=== PATIENT | female | born 1960 | race Hispanic/Latino ===

== ENCOUNTER 2017-04-29 11:03 | Inpatient (IN) | payer MEDICAID, OTHER ==
[2017-04-29 11:04] VITALS: BMI 24.2
[2017-04-29] MEDS ORDERED: Sodium Chloride 0.9% 500 ML IV ONE (11:24)
[2017-04-29] MEDS ORDERED: Albuterol-Ipratrop 3 mg / 0.5 (3 ml) UD IH STA (11:25)
--- NOTE | 2017-04-29 11:25 | C.PDOC ---
History Of Present Illness 56 year old female with past medical history of Hepatitis C, COPD, emphysema, prosthetic glass right eye, chronic back pain, anxiety, history of pain medication abuse, DM, and HTN , come in request detox from opiod. Pt admits , mild chest tightness and wheezing for past few days. Otherwise, pt denies fever, chills, headache, dizziness, CP, palpitation, diaphoresis, palpitation, abd. pain, N/V/D, back pain, UTI sx, denies suicidal or homicidal ideation. Ambulate to ED for evaluation, not in any apparent distress. Time Seen by Provider: 04/29/17 11:08 Chief Complaint (Nursing): Substance Abuse History Per: Patient History/Exam Limitations: no limitations Suicide/Self Injury Attempted (Context): None Past Medical History Reviewed: Historical Data, Nursing Documentation, Vital Signs Vital Signs: Last Vital Signs Temp 97.9 F 04/29/17 13:17 Pulse 96 H 04/29/17 13:17 Resp 18 04/29/17 13:17 BP 92/59 L 04/29/17 13:17 Pulse Ox 96 04/29/17 13:47 - Medical History PMH: Anemia, Anxiety, Asthma, Bronchitis, Cardia Arrhythmia, COPD, Depression, Emphysema, HTN, Sleep Apnea Surgical History: Back Surgery - [facility] Procedures APPLICATION OF SPLINT (12/18/03) ASSISTANCE WITH RESPIRATORY VENTILATION, 24-96 HRS, CPAP (02/01/17) ASSISTANCE WITH RESPIRATORY VENTILATION, <24 HRS, CPAP (12/12/16) ASSISTANCE WITH RESPIRATORY VENTILATION, >96 HRS, CPAP (01/23/17) INJECT/INFUSE NEC (03/17/05) INSERTION OF ENDOTRACHEAL AIRWAY INTO TRACHEA, VIA OPENING (02/01/17) INSERTION OF INFUSION DEV INTO SUP VENA CAVA, PERC APPROACH (02/01/17) INTRODUCE OF OTH THERAP SUBST INTO RESP TRACT, VIA OPENING (01/23/17) INTRODUCE OF OXAZOLIDINONES INTO PERIPH VEIN, PERC APPROACH (02/01/17) MAGNETIC RESONANCE IMAGING OF SPINAL CANAL (07/19/98) RESPIRATORY VENTILATION, LESS THAN 24 CONSECUTIVE HOURS (02/01/17) TETANUS TOXOID ADMINIST (04/24/05) ULTRASONOGRAPHY OF LEFT UPPER EXTREMITY VEINS, GUIDANCE (02/01/17) Family History: States: No Known Family Hx - Social History Hx Alcohol Use: No Hx Substance Use: Yes (OPIATE DEPENDENCY-IVDU DENIES RECENT ABUSE) - Immunization History Hx Tetanus Toxoid Vaccination: No Hx Influenza Vaccination: No Hx Pneumococcal Vaccination: No Review Of Systems Except As Marked, All Systems Reviewed And Found Negative. Constitutional: Negative for: Fever, Chills Cardiovascular: Negative for: Chest Pain, Palpitations Gastrointestinal: Negative for: Nausea, Vomiting, Abdominal Pain, Diarrhea Musculoskeletal: Negative for: Back Pain Neurological: Negative for: Headache, Dizziness Psych: Negative for: Suicidal ideation Physical Exam - Physical Exam Appears: Well, Non-toxic, No Acute Distress Skin: Normal Color, Warm, No Rash Head: Normacephalic Eye(s): right: Other (prosthetic eye), left: PERRL Nose: No Flaring, No Discharge Oral Mucosa: Moist, No Drooling Throat: No Erythema, No Drooling Neck: Supple Cardiovascular: Rhythm Regular, No Murmur, No JVD Respiratory: No Decreased Breath Sounds, No Accessory Muscle Use, No Rales, No Rhonchi, No Stridor, Wheezing (scattered bibasilar wheezing.) Gastrointestinal/Abdominal: Soft, No Tenderness, No Distention, No Guarding Back: No CVA Tenderness Extremity: No Pedal Edema, No Deformity Neurological/Psych: Oriented x3, Normal Speech ED Course And Treatment - Laboratory Results Result Diagrams: 04/29/17 11:45 04/29/17 11:45 ECG: Interpreted By Me ECG Rhythm: Sinus Tachycardia Interpretation Of ECG: Sinus tachy@119/min, RAD, no acute T wave or ST-T changes. O2 Sat by Pulse Oximetry: 96 (RA) Pulse Ox Interpretation: Normal - Radiology CXR: Read By Radiologist CXR Interpretation: Yes: Other (no changes compare to old study) Progress Note: Pt remained stable during the ED evaluation. On re-eval, pt is afebrile, hemodynamicaly stable. NOn-toxic. Pusleox 96% RA. Lungs: CTA B/L, BS equal B/L. neurologicaly intact. Diagnostics, imaging, EKG review and appears without new acute abrnormalities. Pt is smedically cleared for PES evaluation. After pt was evaluated by PES, admission recommend to s/o with Dx; Opiod dependance, COPD, UTI. Medical Decision Making Medical Decision Making: PLAN: * CXR * EKG * Alcohol Serum * Urinalysis * Duoneb IH * Solumedrol IVP * Sodium Chloride IV Disposition - Disposition Disposition: HOSPITALIZED Disposition Time: 13:39 Condition: STABLE Forms: [facility] ([place]an) - Clinical Impression Clinical Impression: Chronic obstructive airway disease, Opioid dependence, UTI (urinary tract infection) - PA / FOOD SAFETY MANAGER / Resident Statement MD/DO has reviewed & agrees with the documentation as recorded. - Scribe Statement The provider has reviewed the documentation as recorded by the Scribe Esme Owens All medical record entries made by the Aidanibcharles were at my direction and personally dictated by me. I have reviewed the chart and agree that the record accurately reflects my personal performance of the history, physical exam, medical decision making, and the department course for this patient. I have also personally directed, reviewed, and agree with the discharge instructions and disposition.
[2017-04-29 11:49] LABS: BASO % 0.7 % (0.0-2.0); EOS # 0.2 K/uL (0.0-0.7); HEMATOCRIT 40.6 % (34.0-47.0); LYMPH # 2.3 K/uL (1.0-4.3); LYMPH % 36.2 % (20.0-40.0); MEAN CELL VOLUME 92.4 fL (81.0-99.0); MEAN CORPUSCULAR HEMOGLOBIN 31.2 pg (27.0-31.0); MEAN CORPUSCULAR HGB CONC 33.8 g/dL (33.0-37.0); MEAN PLATELET VOLUME 7.7 fL (7.2-11.7); MONO # 0.7 K/uL (0.0-0.8); MONO % 10.9 % (0.0-10.0); RED CELL DISTRIBUTION WIDTH 15.5 % (11.5-14.5); WHITE BLOOD COUNT 6.3 K/uL (4.8-10.8)
[2017-04-29 11:57] LABS: CHLORIDE 100 mmol/L (98-107)
[2017-04-29 11:58] LABS: POTASSIUM 3.7 mmol/L (3.6-5.2); SODIUM 142 mmol/L (132-148)
[2017-04-29 12:01] LABS: RBC URINE 9 /hpf (0-3); URINE BACTERIA RARE (<OCC); URINE BILIRUBIN NEGATIVE (NEGATIVE); URINE COLOR Amber (YELLOW); URINE GLUCOSE (UA) NORMAL (Normal); URINE KETONE NEGATIVE (NEGATIVE); URINE PROTEIN 1+ mg/dL (NEGATIVE); WBC URINE 14 /hpf (0-5)
[2017-04-29 12:02] LABS: ALCOHOL SERUM < 10 mg/dl (0-10); ALKALINE PHOSPHATASE 72 U/L (38-126); ALT/SGPT 42 U/L (9-52); AST/SGOT 42 U/L (14-36); BILIRUBIN,TOTAL 1.2 mg/dL (0.2-1.3); BLOOD UREA NITROGEN 7 mg/dL (7-17); CALCIUM 9.4 mg/dl (8.6-10.4); CARBON DIOXIDE 33 mmol/L (22-30); GFR AFRICAN-AMERICAN > 60; GLUCOSE,RANDOM 150 mg/dL (65-105); URINE BLOOD TRACE (NEGATIVE); URINE LEUKOCYTE ESTERASE 1+ Leu/uL (Negative)
[2017-04-29 12:04] LABS: ALB/GLOB RATIO 0.9 (1.0-2.1)
[2017-04-29] MEDS ORDERED: Albuterol-Ipratrop 3 mg / 0.5 (3 ml) UD ONE (12:06)
--- NOTE | 2017-04-29 13:41 | RAD ---
HISTORY: Detox/Psy COMPARISON: No prior. TECHNIQUE: Chest PA and lateral FINDINGS: LUNGS: Bilateral hyperaeration. No right lung consolidation. Right central to right central infrahilar probable mild bronchiectasis Left perihilar to left upper lobe low-density patchy opacification- pleural-parenchymal postinflammatory changes with traction bronchiectasis and trace pleural reaching thin fibrous stranding suggested PLEURA: No significant pleural effusion identified. No pneumothorax apparent. CARDIOVASCULAR: Normal heart size OSSEOUS STRUCTURES: Scoliosis VISUALIZED UPPER ABDOMEN: Normal. OTHER FINDINGS: None. IMPRESSION: Mostly central bronchiectasis. Left perihilar left upper lobe traction bronchiectasis also suggested. Left lung postinflammatory changes inferred Scoliosis
[2017-04-29] MEDS: (Novolin R) Insulin Human Regular 100 units/ml vial SC SCH ×2 (16:50→21:20)
--- NOTE | 2017-04-29 17:48 | PCM.BM ---
<Monse Lewis - Last Filed: 04/29/17 17:45> Treatment Plan Problems - Problems identified on initial assessmt Potential for Opiate Withdrawal Date Initiated: 04/29/17 Time Initiated: 17:46 Assessment reference: NA Status: Active Priority: 1 Ineffective Coping Date Initiated: 04/29/17 Time Initiated: 17:47 Assessment reference: NA Status: Active Priority: 2 Treatment assets and liabiliti Patient Assests: cooperative, ADL independent, negotiates basic needs, cognitively intact Patient Liabilities: substance abuse, medical problems, other (O2 inhalation continously due to COPD, Emphysema) - Milieu Protocol Maintain good personal hygiene: daily Encourage regular showers, daily Remind patient to perform daily oral care, daily Assist patient to perform ADL's Conduct patient checks and document Observation sheet: Q15 minutes Maintain personal safety: every shift Educate patient to report safety concerns to staff, every shift Monitor environment for contraband/sharps Medication safety: Monitor for expected outcome, potential side effects: every shift, Assess barriers to learning: every shift, Assess readiness for medication education: every shift <Ebony Neil - Last Filed: 04/29/17 18:33> - Diagnosis (1) Opioid dependence Status: Acute Interventions: 04/29/17 18:31 * Assess 7x/week regarding severity of withdrawal * Educate regarding risks, benefits, side effects and alternatives of medications * Use Motivational Interviewing for abstinence * Use CBT for relapse prevention * Medication management for withdrawal symptoms * Encourage medication assisted treatment * (2) Depression Status: Chronic Interventions: 04/29/17 18:33 * Assess/adjust medications daily and /or as needed * See patient on an individual basis 7x/week to assess symptoms of depression * Monitor for side effects & effectiveness of medications *
[2017-04-29] MEDS: Albuterol 0.083% Inhal Sol (2.5 mg/3 mL) UD INH SCH ×3 (18:19→21:15)
[2017-04-29] MEDS ORDERED: Aluminum Hydroxide/Magnesium Hydroxide Susp (30 mL) PO PRN (18:29)
--- NOTE | 2017-04-29 18:31 | PCM.PSYCH ---
Initial Psychiatric Evaluation - Initial Psychiatric Evaluation Type of Admission: Voluntary Legal Status: Capacity Chief Complaint (in patient's own words): "I'm withdrawing" History of Present Illness and Precipitating Events: The patient is seen, chart reviewed and case discussed. This is a 56-year-old female, single as a child, on disability and lives with her son She claims that she was somewhat stable on opiate painkillers but they cut her medications due to a glitch and since then she has been using heroin. She reports using up to 15 bags of IV heroin and she claims she cannot using intranasally due to her severe COPD. Patient is dependent on oxygen flow continuously. She also uses Xanax for 5 mg a day and she wants to get off that too. She denies all other drug use including alcohol. She reports depressive symptoms, anxiety but denies psychotic and manic symptoms. 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 Current Medications: Active Medications Generic Name Dose Route Start Last Admin Trade Name Freq PRN Reason Stop Dose Admin Al Hydrox/Mg Hydrox/Simethicone 30 ml 04/29/17 18:29 Maalox 30 Ml PO TID PRN Indigestion / Heartburn Albuterol 1 puff 04/29/17 16:19 Ventolin Hfa 90 Mcg/Actuation (8 G) INH RQ4 PRN Shortness of Breath Albuterol Sulfate 2.5 mg 04/29/17 18:00 04/29/17 18:19 Albuterol 0.083% Inhal Maureen (2.5 Mg/3 Ml) Ud INH 2.5 mg RQ6 NITHIN Administration Chlordiazepoxide 0 mg 04/30/17 00:00 Librium PO 05/02/17 23:59 Q6 NITHIN Taper Clonidine HCl 0.1 mg 04/29/17 18:29 Catapres PO Q8 PRN COWS Score More or Equal to 5 Gabapentin 100 mg 04/30/17 10:00 Neurontin PO TID NITHIN Hydroxyzine HCl 50 mg 04/29/17 16:00 04/29/17 16:48 Atarax PO 50 mg Q6 PRN Administration Anxiety Insulin Glargine 5 unit 04/29/17 22:00 Lantus SC HS [facility] Insulin Human Regular 0 unit 04/29/17 16:30 04/29/17 16:50 Novolin R SC 05/05/17 23:59 1 unit ACHS [facility] Administration Protocol Loperamide HCl 2 mg 04/29/17 18:29 Imodium PO Q8 PRN Diarrhea Mupirocin 0 gm 04/29/17 18:00 04/29/17 18:19 Bactroban Ointment TOP 1 applic BID [facility] Administration Nitrofurantoin Macrocrystals 100 mg 04/29/17 18:30 Macrobid PO 05/06/17 18:31 Q12H [facility] Ondansetron HCl 4 mg 04/29/17 18:29 Zofran Tab PO Q8 PRN Nausea/Vomiting Pantoprazole Sodium 40 mg 04/30/17 10:00 Protonix Ec Tab PO DAILY [facility] Paroxetine HCl 20 mg 04/30/17 10:00 Paxil PO DAILY [facility] Trazodone HCl 50 mg 04/29/17 22:00 Desyrel PO [facility] Past Psychiatric History - Past Psychiatric History Previous Treatment History: Intensive Outpatient Pertinent Medical Hx (Current Medical&Sleep Prob, Allergies): Allergies Allergy/AdvReac Type Severity Reaction Status Date / Time Penicillins Allergy ANAPHYLAXIS Verified 04/29/17 11:23 Pantoprazole [Protonix EC Tab] 40 mg PO DAILY ect 01/29/17 Dextran 70/Hypromellose [Artificial Tears] 1 drop BOTHEYES DAILY 02/01/17 ALPRAZolam [Xanax] 1 mg PO BID 04/11/17 Albuterol 0.042% [Albuterol 0.042% Inhal Maureen (1.25mg/3ml) UD] 1 inh INH PRN PRN 04/11/17 Albuterol HFA [Ventolin HFA 90 mcg/actuation (8 g)] 1 inh INH PRN PRN 04/11/17 Insulin Human Regular [Novolin R] 0 units SC PRN PRN 04/11/17 PARoxetine [Paxil] 20 mg PO DAILY 04/11/17 Insulin Glargine,Hum.rec.anlog [Basaglar Kwikpen U-100] 5 unit SQ HS 04/29/17 Review of Systems - Psychiatric Psychiatric: Abnormal Sleep Pattern, Anhedonia, Anxiety, Depression, Difficulty Concentrating. absent: Hallucinations, Homicidal Ideation, Suicidal Ideation Mental Status Examination - Personal Presentation Personal Presentation: Looks older than stated age - Affect Affect: Constricted - Motor Activity Motor Activity: Calm - Reliability in Providing Information Reliability in Providing Information: Good - Speech Speech: Organized - Mood Mood: Depressed, Anxious - Formal Thought Process Formal Thought Process: No Impairment - Cognitive Functions Orientation: Person, Place, Situation, Time Sensorium: Alert Attention/Concentration: Attentive Estimate of Intelligence: Average Judgement: Intact, as evidence by: Insight regarding need for hospitalization Memory: Recent intact, as evidence by: Ability to recall events of the day, Remote intact, as evidenced by: Abilit to recall sig. 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
[2017-04-29] MEDS: (Lantus) Insulin Glargine, Recombinant SC SCH (21:24)
[2017-04-30] MEDS: Albuterol 0.083% Inhal Sol (2.5 mg/3 mL) UD INH SCH ×4 (02:00→21:00)
[2017-04-30] MEDS: (Novolin R) Insulin Human Regular 100 units/ml vial SC SCH ×4 (08:10→21:00)
[2017-04-30] MEDS: Pantoprazole 40 mg EC Tab PO SCH (10:39)
--- NOTE | 2017-04-30 12:26 | PCM.PYCHPN ---
Psychiatric Progress Note - Psychiatric Progress Note Patient seen today, length of contact: 16 min Patient Chief Complaint: "I'm not well yet" Medication Change: Yes (detox changes daily) Medical Record Reviewed: Yes Mental Status Examination - Cognitive Function Orientation: Person, Place, Situation, Time Memory: Intact Attention: WNL Concentration: Poor Association: WNL Fund of Knowledge: WNL - Mood Mood: Depressed, Anxious - Affect Affect: Constricted - Speech Speech: Appropriate - Formal Thought Process Formal Thought Process: No Impairment - Suicidal Ideation Suicidal Ideation: No - Homicidal Ideation Homicidal Ideation: No Goal/Treatment Plan - Goal/Treatment Plan Need for Continued Stay: Discharge may exacerbated symptoms, Severe functional impairment Progress Toward Problem(s) and Goals/Treatment Plan: Subutex detox for opioids Librium detox for benzos Gabapentin for augmentation Continue Paxil for depression and anxiety As needed meds and vitamins Attend groups and activities CA for abstinence and CBT for relapse prevention Support and psychoeducation Consider and encourage MAT Refer to after care Estimated Date of D/C: 05/04/17
[2017-04-30] MEDS: Albuterol HFA 90 mcg/actuation (8 g) INH PRN (13:28)
[2017-04-30] MEDS: (Lantus) Insulin Glargine, Recombinant SC SCH (21:00)
[2017-05-01] MEDS: Albuterol 0.083% Inhal Sol (2.5 mg/3 mL) UD INH SCH ×4 (02:19→20:12)
--- NOTE | 2017-05-01 08:05 | CARD ---
APPROVED REPORT EKG Measurement Heart [id number] <Conclusion> Sinus tachycardia Rightward axis Borderline ECG
[2017-05-01] MEDS: (Novolin R) Insulin Human Regular 100 units/ml vial SC SCH ×4 (08:38→21:01)
[2017-05-01] MEDS: Pantoprazole 40 mg EC Tab PO SCH (09:27)
[2017-05-01] MEDS: Albuterol HFA 90 mcg/actuation (8 g) INH PRN (09:28)
[2017-05-01] MEDS: (Lantus) Insulin Glargine, Recombinant SC SCH (21:00)
[2017-05-02] MEDS: Albuterol 0.083% Inhal Sol (2.5 mg/3 mL) UD INH SCH ×5 (01:52→19:09)
[2017-05-02] MEDS: (Novolin R) Insulin Human Regular 100 units/ml vial SC SCH ×4 (08:45→21:01)
[2017-05-02] MEDS: Albuterol HFA 90 mcg/actuation (8 g) INH PRN (10:32)
[2017-05-02] MEDS: Pantoprazole 40 mg EC Tab PO SCH (10:34)
[2017-05-02] MEDS: (Lantus) Insulin Glargine, Recombinant SC SCH (21:01)
[2017-05-03] MEDS: Albuterol 0.083% Inhal Sol (2.5 mg/3 mL) UD INH SCH ×4 (01:45→19:58)
[2017-05-03] MEDS: (Novolin R) Insulin Human Regular 100 units/ml vial SC SCH ×4 (07:46→21:05)
[2017-05-03] MEDS: Pantoprazole 40 mg EC Tab PO SCH (09:38)
[2017-05-03 15:30] VITALS: RESP 18
[2017-05-03] MEDS: Albuterol HFA 90 mcg/actuation (8 g) INH PRN (17:03)
--- NOTE | 2017-05-03 19:10 | PCM.PYCHPN ---
Psychiatric Progress Note - Psychiatric Progress Note Patient seen today, length of contact: 16 min Patient Chief Complaint: I want my son to come here as soon as i leave Problems Identified/Issues Discussed: pain physical limitations trlapse prevention Medical Problems: nothing acute Diagnostic Results: reviewed FSBS 107 DSM 5 Symptoms Update: anxiety Medication Change: Yes (detox changes daily) Medical Record Reviewed: Yes Mental Status Examination - Cognitive Function Orientation: Place, Situation, Time Memory: Intact Attention: WNL Concentration: Poor Association: WNL Fund of Knowledge: WNL - Mood Mood: Depressed, Anxious - Affect Affect: Constricted - Speech Speech: Appropriate - Formal Thought Process Formal Thought Process: No Impairment - Suicidal Ideation Suicidal Ideation: No - Homicidal Ideation Homicidal Ideation: No Goal/Treatment Plan - Goal/Treatment Plan Need for Continued Stay: Discharge may exacerbated symptoms, Severe functional impairment Progress Toward Problem(s) and Goals/Treatment Plan: opiate withdrawal-anxiety restless legs opiate use disoprder [place] CBT supportive psychotherapy sedative=hypnotic withdrawal anxietysedative-hpnotic use disorder Estimated Date of D/C: 05/04/17 - Smoking Cessation Smoking Cessation Initiated: No
--- NOTE | 2017-05-03 19:25 | PCM.PYCHPN ---
Psychiatric Progress Note - Psychiatric Progress Note Patient seen today, length of contact: 16 min Patient Chief Complaint: I i need physical rehab to getb strongerand not be in in so much pain Problems Identified/Issues Discussed: PAWS Medical Problems: nothing acute Diagnostic Results: reviewed DSM 5 Symptoms Update: roiling stomach Medication Change: Yes (detox changes daily) Medical Record Reviewed: Yes Mental Status Examination - Cognitive Function Orientation: Place, Time Memory: Intact Attention: WNL Concentration: WNL Association: WNL Fund of Knowledge: WNL - Mood Mood: Depressed, Anxious - Affect Affect: Constricted - Speech Speech: Appropriate - Suicidal Ideation Suicidal Ideation: No - Homicidal Ideation Homicidal Ideation: No Goal/Treatment Plan - Goal/Treatment Plan Need for Continued Stay: Discharge may exacerbated symptoms, Severe functional impairment Progress Toward Problem(s) and Goals/Treatment Plan: opiate withdrawal abdominal cramping opiate use disorder [facility]BT Supportive psychotherapy sedative-hypnotic withdraeal increased anxiety sedative-hypnotic use disorder [facility] CBT groups Estimated Date of D/C: 05/04/17 - Smoking Cessation Smoking Cessation Initiated: No
--- NOTE | 2017-05-03 19:32 | PCM.PYCHPN ---
Psychiatric Progress Note - Psychiatric Progress Note Patient seen today, length of contact: 17 min Patient Chief Complaint: I want to call my son! Problems Identified/Issues Discussed: RElapse prevention PAWS Medical Problems: nothing acute Diagnostic Results: reviewed DSM 5 Symptoms Update: less anhedonic less anergic Medication Change: Yes (detox changes daily) Medical Record Reviewed: Yes Mental Status Examination - Cognitive Function Orientation: Place, Time Memory: Intact Attention: WNL Concentration: WNL Association: WNL Fund of Knowledge: WNL - Mood Mood: Depressed, Anxious, Euphoric - Affect Affect: Constricted - Speech Speech: Appropriate - Formal Thought Process Formal Thought Process: No Impairment - Suicidal Ideation Suicidal Ideation: No - Homicidal Ideation Homicidal Ideation: No Goal/Treatment Plan - Goal/Treatment Plan Need for Continued Stay: Discharge may exacerbated symptoms, Severe functional impairment Progress Toward Problem(s) and Goals/Treatment Plan: sedative-hypnotic use disorder [facility] use [facility] supportive psychotherapy Estimated Date of D/C: 05/04/17 - Smoking Cessation Smoking Cessation Initiated: No
[2017-05-03] MEDS: (Lantus) Insulin Glargine, Recombinant SC SCH (21:04)
[2017-05-04] MEDS: Albuterol 0.083% Inhal Sol (2.5 mg/3 mL) UD INH SCH ×2 (02:00→09:07)
[2017-05-04] MEDS: (Novolin R) Insulin Human Regular 100 units/ml vial SC SCH ×2 (08:15→11:30)
--- NOTE | 2017-05-04 08:57 | PCM.PYCHDC ---
Mental Status Examination - Mental Status Examination Orientation: Person, Place, Situation, Time Memory: Intact Mood: Neutral Affect: Broad Speech: Appropriate Attention: WNL Concentration: WNL Association: WNL Fund of Knowledge: WNL Formal Thought Process: No Impairment Suicidal Ideation: No Current Homicidal Ideation?: No Discharge Summary - Discharge Note Reason for Hospitalization: Opioid use d/o-severe Opioid withdrawal Sedative, hypnotic, and anxiolytic use d/o-moderate Major depression, rec.-moderate Psychiatric History (includes Medical, Family, Personal Hx): Outpatient treatment, no suicide attempts Laboratory Data: Abnormal Lab Results 05/03/17 05/03/17 05/03/17 13:08 16:31 21:03 POC Glucose (mg/dL) 146 H 97 113 H 05/04/17 08:11 POC Glucose (mg/dL) 115 H Consultations:: List each consultation separately and include: 1. Reason for request. 2. Findings. 3. Follow-up Summary of Hospital Course include:: 1. Description of specific treatment plan utilized for patients during their course of treatmen. 2. Summarize the time- course for resolution of acute symptoms and/or regressed behaviors. 3. Describe issues identified and worked on during hospitalization. 4. Describe medication utilized. 5. Describe medical problems identified and treated. 6. Reassessment of suicide risk Summary of Hospital Course: The pt was admitted and started on treatment with psychotherapy, support, psychoeducation, and medications. [place] and CBT used. The pt. attended groups and activities, as well as milieu therapy. All the risks and benefits of medications are discussed and the patient understood and agreed. The pt. improved with the treatments provided. After care discussed with patient. Pt. plans to go to [facility] in [place]. - Final Diagnosis (DSM 5) DSM 5: Opioid use d/o-severe Opioid withdrawal Sedative, hypnotic, and anxiolytic use d/o-moderate Major depression, rec.-moderate Disposition: HOME/ ROUTINE Follow-up Treatment Plan: Continue with medications after discharge. Follow after care plan as discussed. Use relapse prevention skills. Return to ER or call 911 if suicidal, homicidal, or symptoms relapse. Stay away from stress, alcohol, and drugs. See primary doctor once a year. Prescriptions/Medication Reconciliation: Gabapentin [Neurontin] 300 mg PO BID #60 cap Nitrofurantoin Macrocrystals [Macrobid] 100 mg PO Q12H #6 cap PARoxetine [Paxil] 20 mg PO DAILY #30 tab traZODone [Desyrel] 50 mg PO HS #30 tab - Smoking Cessation Smoking Cessation Medication prescribed: No - Antipsychotic Medications Pt discharged on 2 or more routine antipsychotic medications: No
[2017-05-04] MEDS: Pantoprazole 40 mg EC Tab PO SCH (09:28)
[2017-05-04 09:50] VITALS: BP 104/70; PULSE 66; TEMP 98; O2SAT 98
== END 2017-05-04 12:00 | disposition home or self-care (01) | DRG 744 ==
LOC: C.ER 11:03 → C.7D 13:39
PROVIDERS: ADMIT Psychiatry & Neurology Psychiatry; ATTEND Psychiatry & Neurology Psychiatry
PROC: HZ2ZZZZ Detoxification Services for Substance Abuse Treatment (ICD-10-PCS; principal; 2017-04-29)
PROC: GZ56ZZZ Individual Psychotherapy, Supportive (ICD-10-PCS; 2017-04-29)
DX: F11.23 Opioid dependence with withdrawal (principal); J44.9 Chronic obstructive pulmonary disease, unspecified; Z99.81 Dependence on supplemental oxygen; F33.1 Major depressive disorder, recurrent, moderate; N39.0 Urinary tract infection, site not specified; I10 Essential (primary) hypertension; F41.9 Anxiety disorder, unspecified; G25.81 Restless legs syndrome; G47.30 Sleep apnea, unspecified; H54.40 Blindness, one eye, unspecified eye; F19.10 Other psychoactive substance abuse, uncomplicated

== ENCOUNTER 2017-10-31 10:13 | Inpatient (IN) | payer MEDICAID, OTHER ==
[2017-10-31 10:28] VITALS: BMI 20.3
--- NOTE | 2017-10-31 11:51 | C.PDOC ---
History Of Present Illness 56 year old female with past medical history of Hepatitis C, COPD, emphysema, prosthetic glass right eye, chronic back pain, anxiety, history of pain medication abuse, DM, and HTN , comes in with complaints of mild chest tightness and wheezing for past few days. Otherwise, pt denies fever, chills, headache, dizziness, CP, palpitation, diaphoresis, palpitation, abd. pain, N/V/D , back pain, UTI sx, denies suicidal or homicidal ideation. also requesting detox for heroin. Time Seen by Provider: 10/31/17 11:13 Chief Complaint (Nursing): Flu-like Symptoms History Per: Patient History/Exam Limitations: no limitations Past Medical History Reviewed: Historical Data, Nursing Documentation, Vital Signs Vital Signs: Last Vital Signs Temp 97.4 F L 10/31/17 15:05 Pulse 78 10/31/17 15:05 Resp 20 10/31/17 15:05 BP 124/77 10/31/17 15:05 Pulse Ox 88 L 10/31/17 15:05 - Medical History PMH: Anemia, Anxiety, Asthma, Bronchitis, Cardia Arrhythmia, COPD, Depression, Diabetes, Emphysema, HTN, Sleep Apnea Surgical History: Back Surgery - [facility] Procedures APPLICATION OF SPLINT (12/18/03) ASSISTANCE WITH RESPIRATORY VENTILATION, 24-96 HRS, CPAP (02/01/17) ASSISTANCE WITH RESPIRATORY VENTILATION, <24 HRS, CPAP (12/12/16) ASSISTANCE WITH RESPIRATORY VENTILATION, >96 HRS, CPAP (01/23/17) DETOXIFICATION SERVICES FOR SUBSTANCE ABUSE TREATMENT (04/29/17) INDIVIDUAL PSYCHOTHERAPY, SUPPORTIVE (04/29/17) INJECT/INFUSE NEC (03/17/05) INSERTION OF ENDOTRACHEAL AIRWAY INTO TRACHEA, VIA OPENING (02/01/17) INSERTION OF INFUSION DEV INTO SUP VENA CAVA, PERC APPROACH (02/01/17) INTRODUCE OF OTH THERAP SUBST INTO RESP TRACT, VIA OPENING (01/23/17) INTRODUCE OF OXAZOLIDINONES INTO PERIPH VEIN, PERC APPROACH (02/01/17) MAGNETIC RESONANCE IMAGING OF SPINAL CANAL (07/19/98) RESPIRATORY VENTILATION, LESS THAN 24 CONSECUTIVE HOURS (02/01/17) TETANUS TOXOID ADMINIST (04/24/05) ULTRASONOGRAPHY OF LEFT UPPER EXTREMITY VEINS, GUIDANCE (02/01/17) Family History: States: No Known Family Hx - Social History Hx Alcohol Use: No Hx Substance Use: No - Immunization History Hx Tetanus Toxoid Vaccination: No Hx Influenza Vaccination: No Hx Pneumococcal Vaccination: Yes Review Of Systems Constitutional: Negative for: Fever, Chills Cardiovascular: Negative for: Chest Pain, Palpitations, Edema, Light Headedness Respiratory: Positive for: Shortness of Breath, Sputum Gastrointestinal: Negative for: Vomiting, Abdominal Pain, Diarrhea Musculoskeletal: Negative for: Back Pain Neurological: Negative for: Weakness, Numbness, Headache, Dizziness Psych: Positive for: Withdrawal. Negative for: Depression, Psychosis, Suicidal ideation Physical Exam - Physical Exam Appears: Non-toxic, No Acute Distress, Other (Speaking in full sentences) Skin: Normal Color, Warm, Dry, No Rash Head: Normacephalic Eye(s): right: Other (chronic deform) Neck: Normal ROM, Trachea Midline, Supple Chest: Symmetrical Cardiovascular: Rhythm Regular, No Murmur Respiratory: Decreased Breath Sounds (B/L), No Accessory Muscle Use, Wheezing ( OCC EXP) Gastrointestinal/Abdominal: Soft, No Tenderness Extremity: Normal ROM, No Deformity, No Swelling Neurological/Psych: Oriented x3, Normal Speech, Other (No focal deficit. Calm and cooperative. No signs or sx of acute withdrawal) ED Course And Treatment - Laboratory Results Result Diagrams: 10/31/17 12:19 10/31/17 12:19 ECG: Interpreted By Mo ECG Rhythm: Sinus Rhythm ECG Interpretation: Normal Rate From EC O2 Sat by Pulse Oximetry: 98 (RA) Pulse Ox Interpretation: Normal - Radiology CXR: Interpreted by Mo CXR Interpretation: Yes: No Acute Disease Progress - Re-Evaluation Re-evaluation Note: 10/31/17 13:44 NARD APPEARS IMPROVED COMPARED TO PRIOR. D/W CRISIS PHYLLIS WILL EVAL FOR POSSIBLE DETOX 10/31/17 16:27 MEDICALLY CLEARED FOR DETOX EVALUATION. ADVISE CONTINUE PREDNISONE 60 MG DAILY X 4 ADDITIONAL DAYS, CONTINUE NEBULIZER TREATMENT PRN, MEDICINE CONSULT PRN. - Data Reviewed Data Reviewed: Lab, Diagnostic imaging, Old records Medical Decision Making Medical Decision Making: Plan: * EKG * CMP * CBC * Chest X-Ray * Catapres, Duoneb, SoluMedrol, Toradol and Zofran * Peak Flow * Reassess and Disposition Disposition Discussed With : Saleem Reyes Counseled Patient/Family Regarding: Studies Performed, Diagnosis - Disposition Disposition: HOSPITALIZED Disposition Time: 16:27 Condition: STABLE Forms: [employer] (Telugu) - POA Present On Arrival: None - Clinical Impression Clinical Impression: Acute exacerbation of chronic obstructive pulmonary disease (COPD), Opiate use - Scribe Statement The provider has reviewed the documentation as recorded by the Scribe (Tyrone Estevez)
[2017-10-31] MEDS: Albuterol-Ipratrop 3 mg / 0.5 (3 ml) UD IH SCH ×3 (12:05→12:36)
[2017-10-31 12:24] LABS: BASO % 0.5 % (0.0-2.0); EOS # 0.2 K/uL (0.0-0.7); EOS % 3.6 % (0.0-4.0); HEMOGLOBIN 13.8 g/dL (11.0-16.0); LYMPH # 1.8 K/uL (1.0-4.3); LYMPH % 30.1 % (20.0-40.0); MEAN CELL VOLUME 93.1 fL (81.0-99.0); MEAN CORPUSCULAR HEMOGLOBIN 32.8 pg (27.0-31.0); MEAN CORPUSCULAR HGB CONC 35.2 g/dL (33.0-37.0); MEAN PLATELET VOLUME 8.5 fL (7.2-11.7); MONO # 0.5 K/uL (0.0-0.8); MONO % 8.7 % (0.0-10.0); NEUT # 3.5 K/uL (1.8-7.0); NEUT % 57.1 % (50.0-75.0); RBC 4.2 Mil/uL (3.80-5.20); RED CELL DISTRIBUTION WIDTH 14.3 % (11.5-14.5); WHITE BLOOD COUNT 6.1 K/uL (4.8-10.8)
--- NOTE | 2017-10-31 12:33 | RAD ---
HISTORY: SOB COMPARISON: Chest radiograph dated 04/29/2017. TECHNIQUE: Chest PA and lateral FINDINGS: LUNGS: Left mid/ upper lung scarring. No active pulmonary disease. PLEURA: No significant pleural effusion identified. No pneumothorax apparent. CARDIOVASCULAR: Normal. OSSEOUS STRUCTURES: Unchanged. VISUALIZED UPPER ABDOMEN: Normal. OTHER FINDINGS: None. IMPRESSION: No active disease.
[2017-10-31 12:39] LABS: ALBUMIN 3.7 g/dL (3.5-5.0); ALT/SGPT 209 U/L (9-52); AST/SGOT 138 U/L (14-36); BLOOD UREA NITROGEN 8 mg/dL (7-17); GFR AFRICAN-AMERICAN > 60; GFR NON-AFRICAN AMERICAN > 60
[2017-10-31] MEDS ORDERED: Albuterol-Ipratrop 3 mg / 0.5 (3 ml) UD ONE (12:41)
[2017-10-31 15:10] LABS: SQUAMOUS EPITHIAL 19 /hpf (0-5); URINE BACTERIA RARE (<OCC); URINE BILIRUBIN NEGATIVE (NEGATIVE); URINE BLOOD NEGATIVE (NEGATIVE); URINE CLARITY Hazy (Clear); URINE COLOR Amber (YELLOW); URINE GLUCOSE (UA) NORMAL (Normal); URINE LEUKOCYTE ESTERASE 1+ Leu/uL (Negative); URINE PROTEIN 1+ mg/dL (NEGATIVE)
[2017-10-31 15:43] LABS: BARBITURATES, UR NEGATIVE (NEGATIVE); BENZODIAZEPINES, UR NEGATIVE (NEGATIVE); PHENCYCLIDINE, UR NEGATIVE (NEGATIVE)
[2017-10-31 16:13] LABS: OPIATES, UR POSITIVE (NEGATIVE)
--- NOTE | 2017-10-31 19:02 | PCM.BM ---
<DebbieMonse - Last Filed: 10/31/17 19:01> Treatment Plan Problems - Problems identified on initial assessmt Potential for opiate withdrawal Date Initiated: 10/31/17 Time Initiated: 19:02 Assessment reference: NA Status: Active Treatment assets and liabiliti Patient Assests: cooperative, ADL independent, negotiates basic needs, cognitively intact Patient Liabilities: substance abuse, medical problems - Milieu Protocol Maintain good personal hygiene: daily Encourage regular showers, daily Remind patient to perform daily oral care, daily Assist patient to perform ADL's Conduct patient checks and document Observation sheet: Q15 minutes Maintain personal safety: every shift Educate patient to report safety concerns to staff, every shift Monitor environment for contraband/sharps Medication safety: Monitor for expected outcome, potential side effects: every shift, Assess barriers to learning: every shift, Assess readiness for medication education: every shift <Ebony Neil - Last Filed: 11/03/17 18:37> - Diagnosis (1) Opioid dependence Status: Acute Interventions: 11/03/17 18:37 * Assess 7x/week regarding severity of withdrawal * Educate regarding risks, benefits, side effects and alternatives of medications * Use Motivational Interviewing for abstinence * Use CBT for relapse prevention * Medication management for withdrawal symptoms * Encourage medication assisted treatment *
[2017-11-01] MEDS ORDERED: Aluminum Hydroxide/Magnesium Hydroxide Susp (30 mL) PO PRN (12:03)
--- NOTE | 2017-11-01 14:19 | PCM.PSYCH ---
Initial Psychiatric Evaluation - Initial Psychiatric Evaluation Type of Admission: Voluntary Legal Status: Capacity Chief Complaint (in patient's own words): "I want detox" History of Present Illness and Precipitating Events: HPI: 56 y.o. F, single, with 1 son, unemployed on disability, who presented to the ED yesterday requesting detox for heroin. Patient reports a >10 year history of using. She estimates her daily use of >10 bags/day. Her last relapse was this past . Has used other opioids in the past and denies use of cocaine, alcohol, or Xanax. Her last use was yesterday morning. At this time, she reports many feelings of withdrawal including nausea, abdominal pain and difficulty sleeping, congestion and rhinorrhea as well as some chest tightness and wheezing. Denies seizures or tremors. No other complaints noted. She has no plan following discharge but she is interested in a manager long term care rehab program. Medical Hx: Hep C, COPD/emphysema, DM, HTN, chronic back pain, prosthetic R eye , PSHx: "Back surgery" Medications: Unsure of names Psych Hx: depression, anxiety Fam Hx: many family members suffer from substance use, including her son Current Medications: Active Medications Generic Name Dose Route Start Last Admin Trade Name Freq PRN Reason Stop Dose Admin Al Hydrox/Mg Hydrox/Simethicone 30 ml 11/01/17 12:03 Maalox 30 Ml PO TID PRN Indigestion / Heartburn Albuterol 1 puff 11/01/17 11:59 Ventolin Hfa 90 Mcg/Actuation (8 G) INH RQ4 PRN SOB Clonidine HCl 0.1 mg 11/01/17 12:03 Catapres PO Q8 PRN COWS Score More or Equal to 5 Hydroxyzine HCl 25 mg 10/31/17 19:53 10/31/17 21:09 Atarax PO 25 mg Q6 PRN Administration Anxiety Ibuprofen 600 mg 11/01/17 13:10 Motrin Tab PO Q6 PRN Pain, moderate (4-7) Loperamide HCl 2 mg 11/01/17 12:03 Imodium PO Q8 PRN Diarrhea Methadone HCl 15 mg 11/02/17 10:00 Methadone PO 11/06/17 09:59 Q24H NITHIN Taper Ondansetron HCl 4 mg 11/01/17 12:03 Zofran Tab PO Q8 PRN Nausea/Vomiting Prednisone 20 mg 11/01/17 13:00 11/01/17 13:49 Prednisone Tab PO 20 mg DAILY NITHIN Administration Trazodone HCl 50 mg 10/31/17 20:04 10/31/17 21:09 Desyrel PO 50 mg HS PRN Administration Insomnia Past Psychiatric History - Past Psychiatric History History of ETOH/Drug Use: (+) heroin and opioids History of Family Illness: Many family members suffer from substance abuse Pertinent Medical Hx (Current Medical&Sleep Prob, Allergies): Allergies Allergy/AdvReac Type Severity Reaction Status Date / Time Penicillins Allergy ANAPHYLAXIS Verified 10/31/17 10:26 Ibuprofen [Motrin Tab] 600 mg PO Q6 05/27/17 Anxiety Med 10/31/17 Nebulizer 10/31/17 Review of Systems - Constitutional Constitutional: Sweats - EENT Eyes: Blind Spots (R prosthetic eye) - Respiratory Respiratory: Wheezing, Chest Congestion - Gastrointestinal Gastrointestinal: Abdominal Pain, Nausea - Neurological Neurological: absent: Tremor - Psychiatric Psychiatric: Abnormal Sleep Pattern, Irritability. absent: Anxiety, Auditory Hallucinations, Confusion, Depression, Hallucinations, Panic Attacks, Paranoia, Suicidal Ideation, Visual Hallucinations Mental Status Examination - Personal Presentation Personal Presentation: Looks older than stated age - Affect Affect: Depressed - Motor Activity Motor Activity: Calm - Reliability in Providing Information Reliability in Providing Information: Fair - Speech Speech: Relevant - Mood Mood: Depressed - Formal Thought Process Formal Thought Process: No Impairment - Obsessions/Compulsions Obsessions: No Compulsions: No - Cognitive Functions Orientation: Person, Place, Situation, Time Sensorium: Alert Attention/Concentration: Attentive Abstract Thinking: Suches Estimate of Intelligence: Average Judgement: Intact, as evidence by: Insight regarding need for hospitalization Memory: Recent intact, as evidence by: Ability to recall events of the day, Remote intact, as evidenced by: Abilit to recall sig. life events - Risk Risk: Seizure, Withdrawal, Falls, Diminished functioning - Strength & Assets Inventory Strength & Assets Inventory: Life experience, Cooperative DSM 5 DX - DSM 5 DSM 5 Diagnosis: Opioid Withdrawal Opioid Use d/o - severe - Recommended/Plan of Treatment Treatment Recommendations and Plan of Treatment: Plan for MARCO intake Methadone detox Gabapentin for augmentation As needed medications All risks, benefits and alternatives of the meds discussed, and the pt agreed and understood. Attend groups and activities Supportive therapy and psychoeducation [place] for abstinence CBT for relapse prevention Encourage MAT Refer to rehab or IOP, and self-help groups 34 min Projected ELOS: 4-5 days Prognosis: good with treatment Discharge Plan and Discharge Criteria: Rehab and MAT - Smoking Cessation Smoking Cessation Initiated: No
--- NOTE | 2017-11-01 22:52 | CARD ---
APPROVED REPORT EKG Measurement Heart [id number] <Conclusion> Sinus bradycardia with short W[place] Possible Lateral infarct, age undetermined Abnormal ECG
[2017-11-02] MEDS: Albuterol HFA 90 mcg/actuation (8 g) INH PRN ×2 (04:31→09:39)
--- NOTE | 2017-11-02 13:46 | PCM.PYCHPN ---
Psychiatric Progress Note - Psychiatric Progress Note Patient seen today, length of contact: 15 min Patient Chief Complaint: "I want detox" Problems Identified/Issues Discussed: The pt is seen, chart reviewed, case discussed with staff. Patient noted to remain in her room and sleeping in her bed for most of the day. She has been eating well and denies much complaints. Patient denies any changes to her baseline breathing or new chest pain, SOB, n/v/d, or abdominal pain.The pt is compliant with medications and reports no side-effects. Symptoms improving and patient needs more time to stabilize. After care discussed, support and psychoeducation given. Medication Change: Yes (detox changes daily) Medical Record Reviewed: Yes Mental Status Examination - Cognitive Function Orientation: Person, Place, Situation, Time Memory: Intact Attention: Poor Concentration: Poor Association: WNL Fund of Knowledge: WNL - Mood Mood: Depressed - Affect Affect: Depressed - Formal Thought Process Formal Thought Process: No Impairment - Suicidal Ideation Suicidal Ideation: No - Homicidal Ideation Homicidal Ideation: No Goal/Treatment Plan - Goal/Treatment Plan Need for Continued Stay: Remain at risks for inpatient hospitalization, Discharge may exacerbated symptoms, Severe functional impairment, Other Progress Toward Problem(s) and Goals/Treatment Plan: Plan for MARCO intake Methadone detox Gabapentin for augmentation As needed medications, will add Duonebs to help improve patient's breathing, given that she has remained on NC All risks, benefits and alternatives of the meds discussed, and the pt agreed and understood. Attend groups and activities Supportive therapy and psychoeducation [place] for abstinence CBT for relapse prevention Encourage MAT Refer to rehab or IOP, and self-help groups Estimated Date of D/C: 11/05/17 - Smoking Cessation Smoking Cessation Initiated: Yes
[2017-11-02] MEDS ORDERED: Albuterol-Ipratrop 3 mg / 0.5 (3 ml) UD INH PRN (14:00)
[2017-11-02] MEDS: Albuterol-Ipratrop 3 mg / 0.5 (3 ml) UD INH SCH ×2 (18:34→20:27)
[2017-11-03] MEDS: Albuterol-Ipratrop 3 mg / 0.5 (3 ml) UD INH SCH ×6 (00:15→21:12)
--- NOTE | 2017-11-03 14:06 | PCM.PYCHPN ---
Psychiatric Progress Note - Psychiatric Progress Note Patient seen today, length of contact: 16 min Patient Chief Complaint: "My breathing's a little better" Problems Identified/Issues Discussed: The pt is seen, chart reviewed, case discussed with staff. Patient continues remain bed-bound in her room and sleeping for most of the day. She reports sleeping well last night. Patient states that her breathing feels slightly better today. She does admit to intermittent tremors that come and go infrequently. Denies any seizure, COLLIER, chest pain, SOB, n/v/d, or abdominal pain. The pt is compliant with medications and reports no side-effects. Symptoms improving and patient needs more time to stabilize. After care discussed, support and psychoeducation given. Patient explains that she recently moved from [place] to [place], and would like to establish long- term medical care after discharge. [facility] was [facility] the [facility]. Medication Change: Yes (detox changes daily) Medical Record Reviewed: Yes Mental Status Examination - Cognitive Function Orientation: Person, Place, Situation, Time Memory: Intact Attention: Poor Concentration: Poor Association: WNL Fund of Knowledge: WNL - Mood Mood: Depressed - Affect Affect: Depressed - Speech Speech: Soft - Formal Thought Process Formal Thought Process: No Impairment - Suicidal Ideation Suicidal Ideation: No - Homicidal Ideation Homicidal Ideation: No Goal/Treatment Plan - Goal/Treatment Plan Need for Continued Stay: Remain at risks for inpatient hospitalization, Discharge may exacerbated symptoms, Severe functional impairment, Other Progress Toward Problem(s) and Goals/Treatment Plan: Plan for MARCO intake Methadone detox Gabapentin for augmentation As needed medications, continue Duonebs All risks, benefits and alternatives of the meds discussed, and the pt agreed and understood. Attend groups and activities Supportive therapy and psychoeducation [place] for abstinence CBT for relapse prevention Encourage MAT Refer to rehab or IOP, and self-help groups Estimated Date of D/C: 11/05/17
[2017-11-04] MEDS: Albuterol-Ipratrop 3 mg / 0.5 (3 ml) UD INH SCH ×7 (00:35→21:33)
--- NOTE | 2017-11-04 13:32 | PCM.PYCHPN ---
Psychiatric Progress Note - Psychiatric Progress Note Patient seen today, length of contact: 17 min Patient Chief Complaint: "I'm doing okay" Problems Identified/Issues Discussed: The pt is seen, chart reviewed, case discussed with staff. The pt is compliant with medications and reports no side-effects. Her attention and concentration seemed to have improved, she was able to get out of bed and walk to the recreational area today. Overall, symptoms improving and patient needs more time to stabilize. After care discussed, support and psychoeducation given. Medication Change: Yes (detox changes daily) Medical Record Reviewed: Yes Mental Status Examination - Cognitive Function Orientation: Person, Place, Situation, Time Memory: Intact Attention: WNL Concentration: WNL Association: WNL Fund of Knowledge: WNL - Mood Mood: Depressed - Affect Affect: Depressed - Speech Speech: Soft - Formal Thought Process Formal Thought Process: No Impairment - Suicidal Ideation Suicidal Ideation: No - Homicidal Ideation Homicidal Ideation: No Goal/Treatment Plan - Goal/Treatment Plan Need for Continued Stay: Remain at risks for inpatient hospitalization, Discharge may exacerbated symptoms, Severe functional impairment, Other Progress Toward Problem(s) and Goals/Treatment Plan: Plan: Methadone detox As needed medications, continue Duonebs All risks, benefits and alternatives of the meds discussed, and the pt agreed and understood. Attend groups and activities Supportive therapy and psychoeducation [place] for abstinence CBT for relapse prevention Encourage MAT Refer to rehab or IOP, and self-help groups Estimated Date of D/C: 11/05/17 - Smoking Cessation Smoking Cessation Initiated: Yes
[2017-11-04 14:20] VITALS: RESP 18
--- NOTE | 2017-11-04 18:03 | CARD ---
APPROVED REPORT EKG Measurement Heart [id number] <Conclusion> Normal sinus rhythm Rightward axis Borderline ECG
[2017-11-05] MEDS: Albuterol-Ipratrop 3 mg / 0.5 (3 ml) UD INH SCH ×3 (00:37→09:21)
--- NOTE | 2017-11-05 08:41 | PCM.PYCHDC ---
Mental Status Examination - Mental Status Examination Orientation: Person, Place, Situation, Time Memory: Impaired Mood: Anxious Affect: Constricted Speech: Appropriate Attention: WNL Concentration: Poor Association: WNL Fund of Knowledge: WNL Formal Thought Process: No Impairment Suicidal Ideation: No Current Homicidal Ideation?: No Discharge Summary - Discharge Note Reason for Hospitalization: Heroin detox Consultations:: List each consultation separately and include: 1. Reason for request. 2. Findings. 3. Follow-up Summary of Hospital Course include:: 1. Description of specific treatment plan utilized for patients during their course of treatmen. 2. Summarize the time- course for resolution of acute symptoms and/or regressed behaviors. 3. Describe issues identified and worked on during hospitalization. 4. Describe medication utilized. 5. Describe medical problems identified and treated. 6. Reassessment of suicide risk Summary of Hospital Course: On admission: 56 y.o. F, single, with 1 son, unemployed on disability, who presented to the ED yesterday requesting detox for heroin. Patient reports a >10 year history of using. She estimates her daily use of >10 bags/day. Her last relapse was this past . Has used other opioids in the past and denies use of cocaine, alcohol, or Xanax. Her last use was yesterday morning. At this time, she reports many feelings of withdrawal including nausea, abdominal pain and difficulty sleeping, congestion and rhinorrhea as well as some chest tightness and wheezing. Denies seizures or tremors. No other complaints noted. She has no plan following discharge but she is interested in a alf rehab program. Medical Hx: Hep C, COPD/emphysema, DM, HTN, chronic back pain, prosthetic R eye , PSHx: "Back surgery" Medications: Unsure of names Psych Hx: depression, anxiety Fam Hx: many family members suffer from substance use, including her son Hospital course: The pt was admitted and started on treatment with psychotherapy, support, psychoeducation and medications. MT and CBT used. The pt attended groups and activities, as well as milieu therapy. All the risks and benefits of medications are discussed and the patient understood and agreed. The pt improved with the treatments provided. After care discussed with the patient. She will go to [facility] in . She had to take lots of O2 during her stay which is why she couldn't go to any rehab. - Diagnosis (1) Opioid dependence Status: Acute - Final Diagnosis (DSM 5) Condition upon Discharge: STABLE Disposition: HOME/ ROUTINE Follow-up Treatment Plan: Continue below medications after discharge. Follow after care plan as discussed. Use relapse prevention skills Return to ER or call 911 if suicidal, homicidal or symptoms relapse. Stay away from stress, alcohol and drugs. See primary doctor regularly and get labs. Prescriptions/Medication Reconciliation: Albuterol HFA [Ventolin HFA 90 mcg/actuation (8 g)] 1 puff INH RQ4 PRN #1 inhaler PRN Reason: SOB Albuterol/Ipratropium [Duoneb 3 mg/0.5 mg (3 ml) UD] 3 ml INH RQ4 #1 neb hydrOXYzine HCl [Atarax] 25 mg PO BID PRN #60 tab PRN Reason: Anxiety Nicotine 21 mg/24 hr [Nicoderm Cq] 1 patch TD DAILY #30 patch predniSONE [predniSONE Tab] 20 mg PO DAILY #30 tab QUEtiapine [SEROquel] 50 mg PO HS #30 tab traZODone [Desyrel] 100 mg PO HS #30 tab
[2017-11-05 10:52] VITALS: BP 104/70; PULSE 100; TEMP 98.3; O2SAT 96
== END 2017-11-05 11:15 | disposition home or self-care (01) | DRG 744 ==
LOC: C.ER 10:13 → C.7D 16:28
PROVIDERS: ADMIT Psychiatry & Neurology Psychiatry; ATTEND Psychiatry & Neurology Psychiatry
PROC: HZ2ZZZZ Detoxification Services for Substance Abuse Treatment (ICD-10-PCS; principal; 2017-10-31)
PROC: HZ56ZZZ Individual Psychotherapy for Substance Abuse Treatment, Psychoeducation (ICD-10-PCS; 2017-10-31)
PROC: HZ59ZZZ Individual Psychotherapy for Substance Abuse Treatment, Supportive (ICD-10-PCS; 2017-10-31)
DX: F11.23 Opioid dependence with withdrawal (principal); F17.210 Nicotine dependence, cigarettes, uncomplicated; J43.9 Emphysema, unspecified; E11.9 Type 2 diabetes mellitus without complications; I10 Essential (primary) hypertension; G47.30 Sleep apnea, unspecified; Z97.0 Presence of artificial eye; Z88.0 Allergy status to penicillin

== ENCOUNTER 2017-12-09 15:49 | Observation (INO) | payer MEDICAID, OTHER ==
[2017-12-09 15:49] VITALS: BMI 20.3
[2017-12-09] MEDS ORDERED: Albuterol 0.083% Inhal Sol (2.5 mg/3 mL) UD INH STA (16:20)
[2017-12-09] MEDS ORDERED: Albuterol-Ipratrop 3 mg / 0.5 (3 ml) UD INH STA (16:20)
[2017-12-09 16:50] LABS: BASO % 0.5 % (0.0-2.0); EOS # 0.1 K/uL (0.0-0.7); EOS % 1.8 % (0.0-4.0); HEMOGLOBIN 13.4 g/dL (11.0-16.0); LYMPH # 1.4 K/uL (1.0-4.3); LYMPH % 22.2 % (20.0-40.0); MEAN CELL VOLUME 94.4 fL (81.0-99.0); MEAN CORPUSCULAR HEMOGLOBIN 32.6 pg (27.0-31.0); MEAN CORPUSCULAR HGB CONC 34.6 g/dL (33.0-37.0); MEAN PLATELET VOLUME 8.1 fL (7.2-11.7); MONO # 0.4 K/uL (0.0-0.8); MONO % 6.3 % (0.0-10.0); NEUT # 4.3 K/uL (1.8-7.0); NEUT % 69.2 % (50.0-75.0); RBC 4.1 Mil/uL (3.80-5.20); RED CELL DISTRIBUTION WIDTH 14.6 % (11.5-14.5); WHITE BLOOD COUNT 6.2 K/uL (4.8-10.8)
[2017-12-09] MEDS ORDERED: Magnesium Sulfate 1 gm in D5W 1 GM/100 ML BAG IVPB ONE ×2 (16:50→17:53)
[2017-12-09] MEDS: Magnesium Sulfate 1 gm in D5W 1 GM/100 ML BAG IVPB SCH ×2 (16:51→17:53)
[2017-12-09 17:07] LABS: ALB/GLOB RATIO 0.9 (1.0-2.1); ALBUMIN 3.5 g/dL (3.5-5.0); ALT/SGPT 199 U/L (9-52); AST/SGOT 148 U/L (14-36); BLOOD UREA NITROGEN 8 mg/dL (7-17); CALCIUM 8.6 mg/dl (8.6-10.4); GFR AFRICAN-AMERICAN > 60; GFR NON-AFRICAN AMERICAN > 60
--- NOTE | 2017-12-09 18:06 | RAD ---
PROCEDURE: CHEST RADIOGRAPH, 1 VIEW HISTORY: SOB COMPARISON: 10/31/2017 FINDINGS: LUNGS: Clear. PLEURA: No pneumothorax or pleural fluid seen. CARDIOVASCULAR: No radiographic findings to suggest acute or significant cardiovascular disease. OSSEOUS STRUCTURES: No significant abnormalities. VISUALIZED UPPER ABDOMEN: Normal. OTHER FINDINGS: None. IMPRESSION: No active disease. No acute/significant interval changes.
--- NOTE | 2017-12-09 18:12 | C.PDOC ---
History Of Present Illness 57 y/o female with history of COPD presents to ED with complaints of increased sob for 3 days with associated dry cough. Patient has been admitted to hospital multiple times for COPD exacerbation. Patient denies chest pain, fever, nausea, leg swelling or any other complaints at this time. Chief Complaint (Nursing): Shortness Of Breath History Per: Patient History/Exam Limitations: no limitations Onset/Duration Of Symptoms: Days Current Symptoms Are (Timing): Still Present Initiating Event: Upper Respiratory Illness Past Medical History Reviewed: Historical Data, Nursing Documentation, Vital Signs Vital Signs: Last Vital Signs Temp 98.0 F 12/09/17 15:57 Pulse 98 H 12/09/17 15:57 Resp 22 12/09/17 16:06 BP 122/71 12/09/17 15:57 Pulse Ox 99 12/09/17 18:14 - Medical History PMH: Anemia, Anxiety, Asthma, Bronchitis, Cardia Arrhythmia, COPD, Depression, Diabetes, Emphysema, HTN, Sleep Apnea Surgical History: Back Surgery - [facility] Procedures APPLICATION OF SPLINT (12/18/03) ASSISTANCE WITH RESPIRATORY VENTILATION, 24-96 HRS, CPAP (02/01/17) ASSISTANCE WITH RESPIRATORY VENTILATION, <24 HRS, CPAP (12/12/16) ASSISTANCE WITH RESPIRATORY VENTILATION, >96 HRS, CPAP (01/23/17) DETOXIFICATION SERVICES FOR SUBSTANCE ABUSE TREATMENT (10/31/17) INDIV PSYCHOTHERAPY FOR SUBSTANCE ABUSE TREATMENT, SUPPORT (10/31/17) INDIV PSYCHOTHERAPY FOR SUBSTANCE ABUSE, PSYCHOEDUCATION (10/31/17) INDIVIDUAL PSYCHOTHERAPY, SUPPORTIVE (04/29/17) INJECT/INFUSE NEC (03/17/05) INSERTION OF ENDOTRACHEAL AIRWAY INTO TRACHEA, VIA OPENING (02/01/17) INSERTION OF INFUSION DEV INTO SUP VENA CAVA, PERC APPROACH (02/01/17) INTRODUCE OF OTH THERAP SUBST INTO RESP TRACT, VIA OPENING (01/23/17) INTRODUCE OF OXAZOLIDINONES INTO PERIPH VEIN, PERC APPROACH (02/01/17) MAGNETIC RESONANCE IMAGING OF SPINAL CANAL (07/19/98) RESPIRATORY VENTILATION, LESS THAN 24 CONSECUTIVE HOURS (02/01/17) TETANUS TOXOID ADMINIST (04/24/05) ULTRASONOGRAPHY OF LEFT UPPER EXTREMITY VEINS, GUIDANCE (02/01/17) Family History: States: No Known Family Hx - Social History Hx Alcohol Use: No Hx Substance Use: Yes - Immunization History Hx Tetanus Toxoid Vaccination: No Hx Influenza Vaccination: No Hx Pneumococcal Vaccination: Yes Review Of Systems Constitutional: Negative for: Fever, Chills Cardiovascular: Negative for: Chest Pain Respiratory: Positive for: Cough, Shortness of Breath Gastrointestinal: Negative for: Nausea, Vomiting Skin: Negative for: Rash Neurological: Negative for: Weakness, Numbness Physical Exam - Physical Exam Appears: Non-toxic, No Acute Distress Skin: Warm, Dry Head: Atraumatic, Normacephalic Eye(s): right: Other (No right eye globe), left: Normal Inspection Oral Mucosa: Moist Neck: Normal ROM, Supple Chest: Other (Chest nenana shaped) Cardiovascular: Rhythm Regular Respiratory: No Rales, No Rhonchi, Wheezing (bilateral expiratory ) Gastrointestinal/Abdominal: Soft, No Tenderness, No Guarding, No Rebound Extremity: No Pedal Edema, Capillary Refill (<2 seconds) Neurological/Psych: Oriented x3, Normal Speech, Normal Cognition, Normal Motor, Normal Sensation ED Course And Treatment - Laboratory Results Result Diagrams: 12/09/17 16:47 12/09/17 16:47 ECG: Interpreted By Me, Viewed By Me ECG Rhythm: Sinus Rhythm Rate From EC (BPM) O2 Sat by Pulse Oximetry: 99 (RA) Pulse Ox Interpretation: Normal Disposition - Disposition Disposition Time: 17:40 Condition: STABLE - Clinical Impression Clinical Impression: COPD exacerbation - Scribe Statement The provider has reviewed the documentation as recorded by the Aidanibcharles Baez All medical record entries made by the Aidanibcharles were at my direction and personally dictated by me. I have reviewed the chart and agree that the record accurately reflects my personal performance of the history, physical exam, medical decision making, and the department course for this patient. I have also personally directed, reviewed, and agree with the discharge instructions and disposition.
[2017-12-09] MEDS ORDERED: MethylPREDNISolone 40 mg Vial ONE (22:14)
[2017-12-09] MEDS: MethylPREDNISolone 40 mg Vial IVP SCH (22:16)
[2017-12-10] MEDS: Albuterol-Ipratrop 3 mg / 0.5 (3 ml) UD INH SCH ×6 (00:52→19:18)
[2017-12-10 01:58] VITALS: RESP 20
[2017-12-10] MEDS: MethylPREDNISolone 40 mg Vial IVP SCH ×4 (02:45→21:48)
[2017-12-10] MEDS: Enoxaparin 40 mg Syringe SC SCH (10:57)
[2017-12-10 11:03] LABS: BASO % 0.3 % (0.0-2.0); HEMOGLOBIN 13.5 g/dL (11.0-16.0); LYMPH # 1.1 K/uL (1.0-4.3); LYMPH % 14.4 % (20.0-40.0); MEAN CELL VOLUME 93.6 fL (81.0-99.0); MEAN CORPUSCULAR HEMOGLOBIN 32.9 pg (27.0-31.0); MEAN CORPUSCULAR HGB CONC 35.1 g/dL (33.0-37.0); MEAN PLATELET VOLUME 8.8 fL (7.2-11.7); MONO # 0.7 K/uL (0.0-0.8); NEUT # 5.6 K/uL (1.8-7.0); NEUT % 76.3 % (50.0-75.0); RBC 4.12 Mil/uL (3.80-5.20); RED CELL DISTRIBUTION WIDTH 14.5 % (11.5-14.5); WHITE BLOOD COUNT 7.4 K/uL (4.8-10.8)
[2017-12-10 11:19] LABS: ALBUMIN 3.6 g/dL (3.5-5.0); ALT/SGPT 167 U/L (9-52); AST/SGOT 98 U/L (14-36); BLOOD UREA NITROGEN 17 mg/dL (7-17); CALCIUM 9.1 mg/dl (8.6-10.4); GFR AFRICAN-AMERICAN > 60; GFR NON-AFRICAN AMERICAN > 60
--- NOTE | 2017-12-10 16:13 | CP.PCM.PN ---
Subjective - Date & Time of Evaluation Date of Evaluation: 12/10/17 Time of Evaluation: 16:10 - Subjective Subjective: PGY2 progress note for Dr. Buckley 57 year old female with past medical history of Heroin abuse (last use was yesterday), Hepatitis C, COPD on 2.5 L of oxygen at home, emphysema, prosthetic glass right eye, DM, anxiety and HTN is admitted for COPD exacerbation. Pt states that she has been feeling SOB at home for about 1 week.s She also c/o productive cough. Denies having any F/C,CP, abd pain, N/V/D /C, F/C. PSH: , right eye surgery, lower back surgery Allergy: Penicillin Social hx: current smoker, denies current alcohol use, denies other illicit drug use Fam hx: COPD Home meds: see YAKOV Objective - Vital Signs/Intake and Output Vital Signs (last 24 hours): Temp Pulse Resp BP Pulse Ox 98 F 97 H 20 118/74 97 12/10/17 07:00 12/10/17 07:00 12/10/17 07:00 12/10/17 07:00 12/10/17 07:00 Intake and Output: 12/10/17 12/10/17 06:59 18:59 Intake Total 0 360 Balance 0 360 - Medications Medications: Current Medications Acetaminophen (Tylenol 325mg Tab) 650 mg PO Q6 PRN PRN Reason: Pain, moderate (4-7) Albuterol/Ipratropium (Duoneb 3 Mg/0.5 Mg (3 Ml) Ud) 3 ml INH RQ4 [facility] Last Admin: 12/10/17 11:28 Dose: 3 ml Enoxaparin Sodium (Lovenox) 40 mg SC DAILY [facility] Last Admin: 12/10/17 10:57 Dose: 40 mg Lorazepam (Ativan) 2 mg PO Q8 PRN PRN Reason: symptoms of withdrawl Last Admin: 12/10/17 10:57 Dose: 2 mg Methylprednisolone (Solu-Medrol) 40 mg IVP Q6H [facility] Last Admin: 12/10/17 10:00 Dose: 40 mg Quetiapine Fumarate (Seroquel) 50 mg PO HS [facility] Trazodone HCl (Desyrel) 100 mg PO HS [facility] - Labs Labs: 12/10/17 10:54 12/10/17 10:54 - Constitutional Appears: Non-toxic, No Acute Distress - Head Exam Head Exam: ATRAUMATIC - ENT Exam ENT Exam: Mucous Membranes Moist - Respiratory Exam Respiratory Exam: Clear to Ausculation Bilateral. absent: Accessory Muscle Use , Rhonchi, Wheezes, Respiratory Distress - Cardiovascular Exam Cardiovascular Exam: REGULAR RHYTHM, +S1, +S2. absent: Gallop, Rubs, Murmur - GI/Abdominal Exam GI & Abdominal Exam: Soft, Normal Bowel Sounds. absent: Distended, Firm, Guarding, Rigid, Tenderness, Organomegaly - Extremities Exam Extremities Exam: absent: Pedal Edema, Tenderness - Neurological Exam Neurological Exam: Alert, Awake, Oriented x3 - Psychiatric Exam Psychiatric exam: Normal Affect, Normal Mood - Skin Skin Exam: Dry, Intact, Normal Color, Warm Assessment and Plan - Assessment and Plan (Free Text) Assessment: Hepatitis C, COPD on 2.5 L of oxygen at home, emphysema, prosthetic glass right eye, DM, anxiety and HTN COPD exacerbation - CXR on admission was negative for active disease - Pt was afebrile and had normal WBC count on admission - Continue Duoneb, Solumedrol 40 mg IVP q 12 - NC prn to maintain O2>92% HTN - Currently normal BP. Will continue to monitor Anxiety - Continue home medications Seroquel and Trazadone - Psych, Dr. Reyes is consulted Heroin abuse - Pt is counselled on the adverse risks fo heroin abuse and recommend cessation. - Psych is consulted and pending further recs - Ativan prn Prophylaxis - SCDs - Lovenox Case discussed with attending, Dr. Bourne. All orders and management per Dr. Buckley
[2017-12-10 16:14] VITALS: O2SAT 95
[2017-12-10 19:45] LABS: BARBITURATES, UR NEGATIVE (NEGATIVE); BENZODIAZEPINES, UR NEGATIVE (NEGATIVE); PHENCYCLIDINE, UR NEGATIVE (NEGATIVE)
[2017-12-10 19:46] LABS: OPIATES, UR POSITIVE (NEGATIVE)
--- NOTE | 2017-12-10 22:07 | PCM.PSYCH ---
Initial Psychiatric Evaluation - Initial Psychiatric Evaluation Type of Admission: Voluntary Legal Status: Capacity Current Medications: Active Medications Generic Name Dose Route Start Last Admin Trade Name Freq PRN Reason Stop Dose Admin Acetaminophen 650 mg 12/09/17 21:38 Tylenol 325mg Tab PO Q6 PRN Pain, moderate (4-7) Albuterol/Ipratropium 3 ml 12/10/17 00:00 12/10/17 19:18 Duoneb 3 Mg/0.5 Mg (3 Ml) Ud INH 3 ml RQ4 [facility] Administration Enoxaparin Sodium 40 mg 12/10/17 10:00 12/10/17 10:57 Lovenox SC 40 mg DAILY [facility] Administration Lorazepam 2 mg 12/09/17 21:40 12/10/17 19:01 Ativan PO 2 mg Q8 PRN Administration symptoms of withdrawl Methylprednisolone 40 mg 12/10/17 22:00 12/10/17 21:48 Solu-Medrol IVP 40 mg Q12 NITHIN Administration Quetiapine Fumarate 50 mg 12/10/17 22:00 12/10/17 21:49 Seroquel PO 50 mg HS NITHIN Administration Trazodone HCl 100 mg 12/10/17 22:00 12/10/17 21:48 Desyrel PO 100 mg HS NITHIN Administration Past Psychiatric History - Past Psychiatric History Pertinent Medical Hx (Current Medical&Sleep Prob, Allergies): Allergies Allergy/AdvReac Type Severity Reaction Status Date / Time Penicillins Allergy ANAPHYLAXIS Verified 12/09/17 16:03 Anxiety Med 20 mg PO 10/31/17 Albuterol HFA [Ventolin HFA 90 mcg/actuation (8 g)] 1 puff INH RQ4 PRN #1 inhaler 11/05/17 Albuterol/Ipratropium [Duoneb 3 mg/0.5 mg (3 ml) UD] 3 ml INH RQ4 #1 neb Ibuprofen [Motrin Tab] 600 mg PO Q6 PRN tab 11/05/17 Nicotine 21 mg/24 hr [Nicoderm Cq] 1 patch TD DAILY #30 patch 11/05/17 QUEtiapine [SEROquel] 50 mg PO HS #30 tab 11/05/17 hydrOXYzine HCl [Atarax] 25 mg PO BID PRN #60 tab 11/05/17 predniSONE [predniSONE Tab] 20 mg PO DAILY #30 tab 11/05/17 traZODone [Desyrel] 100 mg PO HS #30 tab 11/05/17
[2017-12-11] MEDS: Albuterol-Ipratrop 3 mg / 0.5 (3 ml) UD INH SCH ×4 (00:50→11:52)
[2017-12-11 07:16] LABS: BASO % 0.2 % (0.0-2.0); HEMOGLOBIN 13.4 g/dL (11.0-16.0); LYMPH # 1.5 K/uL (1.0-4.3); LYMPH % 12.2 % (20.0-40.0); MEAN CELL VOLUME 92.9 fL (81.0-99.0); MEAN CORPUSCULAR HEMOGLOBIN 32.8 pg (27.0-31.0); MEAN CORPUSCULAR HGB CONC 35.3 g/dL (33.0-37.0); MEAN PLATELET VOLUME 8.7 fL (7.2-11.7); MONO # 0.9 K/uL (0.0-0.8); MONO % 7.1 % (0.0-10.0); NEUT # 9.8 K/uL (1.8-7.0); NEUT % 80.5 % (50.0-75.0); RBC 4.09 Mil/uL (3.80-5.20); RED CELL DISTRIBUTION WIDTH 14.7 % (11.5-14.5); WHITE BLOOD COUNT 12.2 K/uL (4.8-10.8)
[2017-12-11 07:48] LABS: ALBUMIN 3.5 g/dL (3.5-5.0); ALT/SGPT 126 U/L (9-52); AST/SGOT 53 U/L (14-36); BLOOD UREA NITROGEN 16 mg/dL (7-17); CALCIUM 8.9 mg/dl (8.6-10.4); GFR AFRICAN-AMERICAN > 60; GFR NON-AFRICAN AMERICAN > 60
[2017-12-11 08:41] VITALS: BP 91/50; PULSE 117; TEMP 98.3
[2017-12-11] MEDS: MethylPREDNISolone 40 mg Vial IVP SCH (10:14)
[2017-12-11] MEDS: Enoxaparin 40 mg Syringe SC SCH (10:14)
--- NOTE | 2017-12-11 11:20 | CP.PCM.PN ---
Subjective - Date & Time of Evaluation Date of Evaluation: 12/11/17 Time of Evaluation: 11:19 - Subjective Subjective: PT SEEN BY DR. CHISHOLM TODAY. PT STABLE AND CLEARED FOR D/C HOME TODAY. RX GIVEN FOR MEDROL DOSE PACK TO TAKE DIRECTED. PT TO CONTINUE USUAL HOME MEDS WELL, INCLUDING ALBUTEROL. TO F/U WITH DR. CHISHOLM OR HER PMD WITHIN 5-7 DAYS. NO FURTHER ORDERS. Objective - Vital Signs/Intake and Output Vital Signs (last 24 hours): Temp Pulse Resp BP Pulse Ox 98.3 F 117 H 20 91/50 L 95 12/11/17 08:00 12/11/17 08:00 12/11/17 08:00 12/11/17 08:00 12/11/17 08:00 Intake and Output: 12/11/17 12/11/17 06:59 18:59 Intake Total 500 330 Balance 500 330 - Medications Medications: Current Medications Acetaminophen (Tylenol 325mg Tab) 650 mg PO Q6 PRN PRN Reason: Pain, moderate (4-7) Albuterol/Ipratropium (Duoneb 3 Mg/0.5 Mg (3 Ml) Ud) 3 ml INH RQ4 [facility] Last Admin: 12/11/17 07:46 Dose: 3 ml Enoxaparin Sodium (Lovenox) 40 mg SC DAILY [facility] Last Admin: 12/11/17 10:14 Dose: 40 mg Loperamide HCl (Imodium) 2 mg PO Q8 PRN PRN Reason: Diarrhea Lorazepam (Ativan) 1 mg PO Q6 PRN PRN Reason: symptoms of withdrawl Methadone HCl (Methadone) 15 mg PO DAILY [facility] PRN Reason: Taper Stop: 12/14/17 09:59 Last Admin: 12/11/17 10:14 Dose: 15 mg Methylprednisolone (Solu-Medrol) 40 mg IVP Q12 [facility] Last Admin: 12/11/17 10:14 Dose: 40 mg Ondansetron HCl (Zofran Tab) 4 mg PO Q8 PRN PRN Reason: Nausea/Vomiting Pseudoephedrine HCl (Sudafed Tab) 60 mg PO QID PRN PRN Reason: Nasal/Sinus Congestion Quetiapine Fumarate (Seroquel) 50 mg PO HS [facility] Last Admin: 12/10/17 21:49 Dose: 50 mg Trazodone HCl (Desyrel) 100 mg PO [facility] Last Admin: 12/10/17 21:48 Dose: 100 mg - Labs Labs: 12/11/17 07:04 12/11/17 07:04
--- NOTE | 2017-12-12 10:59 | CARD ---
APPROVED REPORT EKG Measurement Heart [id number] <Conclusion> Normal sinus rhythm with sinus arrhythmia Normal ECG
--- NOTE | 2017-12-13 09:42 | HP ---
HISTORY OF PRESENT ILLNESS: Ms. Nichole was admitted to the hospital with chief complaint of shortness of breath, fatigue, weakness, tiredness. The patient has a history of heroin abuse. Came to the ER, advised admission. PHYSICAL EXAMINATION: GENERAL: The patient is awake, alert, and oriented. VITAL SIGNS: Temperature 98, pulse 90. HEENT: Within normal limits. NECK: Supple. CHEST: Symmetrical. HEART: Regular. ABDOMEN: Soft. EXTREMITIES: No edema. IMPRESSION: The patient suffers from chronic obstructive pulmonary disease, heroin withdrawal. Boone Buckley MD
== END 2017-12-11 13:17 | disposition home or self-care (01) ==
LOC: C.ER 15:49 → C.9E 18:12 → C.3T 21:32
PROVIDERS: ADMIT Internal Medicine Pulmonary Disease; ATTEND Internal Medicine Pulmonary Disease
DX: J44.1 Chronic obstructive pulmonary disease with (acute) exacerbation (principal); I10 Essential (primary) hypertension; G47.30 Sleep apnea, unspecified; F41.9 Anxiety disorder, unspecified; E11.9 Type 2 diabetes mellitus without complications; F32.9 Major depressive disorder, single episode, unspecified; D64.9 Anemia, unspecified; I49.9 Cardiac arrhythmia, unspecified; F11.23 Opioid dependence with withdrawal; Z79.52 Long term (current) use of systemic steroids; Z88.0 Allergy status to penicillin; Z99.81 Dependence on supplemental oxygen; H54.61 Unqualified visual loss, right eye, normal vision left eye; F17.200 Nicotine dependence, unspecified, uncomplicated; B19.20 Unspecified viral hepatitis C without hepatic coma
CPT/HCPCS: 36415; 71045; 80053; 80324; 80345; 80346; 80349; 80353; 80358; 80361; 83992; 84484; 85025; 93005; 94640; 96365; 96366; 96372; 96375; 96376; 99285; G0378; J1650; J2920; J3475

== ENCOUNTER 2018-02-27 09:31 | Inpatient (IN) | payer MEDICAID, OTHER ==
[2018-02-27 09:47] VITALS: BMI 21.7
[2018-02-27] MEDS ORDERED: Albuterol-Ipratrop 3 mg / 0.5 (3 ml) UD INH STA (09:53)
[2018-02-27] MEDS ORDERED: Albuterol 0.083% Inhal Sol (2.5 mg/3 mL) UD IH STA ×3 (09:53→10:57)
[2018-02-27] MEDS ORDERED: Albuterol-Ipratrop 3 mg / 0.5 (3 ml) UD ONE (10:19)
[2018-02-27 10:21] LABS: BASO # 0.1 K/uL (0.0-0.2); BASO % 0.8 % (0.0-2.0); EOS # 0.3 K/uL (0.0-0.7); EOS % 3.7 % (0.0-4.0); HEMOGLOBIN 14.8 g/dL (11.0-16.0); LYMPH # 1.4 K/uL (1.0-4.3); LYMPH % 18.8 % (20.0-40.0); MEAN CELL VOLUME 94.4 fL (81.0-99.0); MEAN CORPUSCULAR HEMOGLOBIN 32.7 pg (27.0-31.0); MEAN CORPUSCULAR HGB CONC 34.6 g/dL (33.0-37.0); MEAN PLATELET VOLUME 8.6 fL (7.2-11.7); MONO # 0.7 K/uL (0.0-0.8); MONO % 8.7 % (0.0-10.0); NEUT # 5.2 K/uL (1.8-7.0); NRBC % 0.2 % (0.0-2.0); RBC 4.53 Mil/uL (3.80-5.20); RED CELL DISTRIBUTION WIDTH 14.2 % (11.5-14.5); WHITE BLOOD COUNT 7.7 K/uL (4.8-10.8)
--- NOTE | 2018-02-27 10:24 | RAD ---
PROCEDURE: CHEST RADIOGRAPH, 1 VIEW HISTORY: SOB COMPARISON: Comparison chest 12/09/2017 FINDINGS: LUNGS: Hyperinflation with flattened diaphragms consistent with COPD or emphysema. PLEURA: No pneumothorax or pleural fluid seen. CARDIOVASCULAR: Normal. OSSEOUS STRUCTURES: No significant abnormalities. VISUALIZED UPPER ABDOMEN: Normal. OTHER FINDINGS: None. IMPRESSION: Hyperinflation with flattened diaphragms consistent with COPD or emphysema.
[2018-02-27 10:37] LABS: ALB/GLOB RATIO 1.2 (1.0-2.1); ALBUMIN 3.9 g/dL (3.5-5.0); ALT/SGPT 252 U/L (9-52); AST/SGOT 204 U/L (14-36); BLOOD UREA NITROGEN 6 mg/dL (7-17); CALCIUM 8.9 mg/dl (8.6-10.4); GFR AFRICAN-AMERICAN > 60; GFR NON-AFRICAN AMERICAN > 60
[2018-02-27 10:45] LABS: B-TYPE NATRIURETIC PEPTIDE 147 pg/mL (0-900); CK-MB 0.71 ng/mL (0.0-3.38)
--- NOTE | 2018-02-27 10:54 | C.PDOC ---
History Of Present Illness 57-year-old female with PMHx that includes COPD (on 3L home O2) is brought to the emergency department from methadone clinic for evaluation of shortness of breath. Patient states for the past several days, when she goes for her dose of Methadone, she develops shortness of breath. Patient states her regular dose is 30mg but she has been asking her doctor to lower the dose to 20mg instead. Patient did not receive her methadone dose today. She admits to occasional sharp, nonspecific chest pain since yesterday. Patient denies nausea/vomiting, fever, abdominal pain, productive cough, palpitations, or any other associated symptoms. Time Seen by Provider: 02/27/18 09:32 Chief Complaint (Nursing): Shortness Of Breath History Per: Patient History/Exam Limitations: no limitations Onset/Duration Of Symptoms: Days Current Symptoms Are (Timing): Still Present Current Respiratory Medications: See Home Med List Severity: Moderate Past Medical History Reviewed: Historical Data, Nursing Documentation, Vital Signs Vital Signs: Last Vital Signs Temp 98.1 F 02/27/18 15:53 Pulse 87 02/27/18 15:53 Resp 17 02/27/18 15:53 BP 119/67 02/27/18 15:53 Pulse Ox 95 02/27/18 18:18 - Medical History PMH: Anemia, Anxiety, Asthma, Bronchitis, Cardia Arrhythmia, COPD, Depression, Diabetes, Emphysema, HTN, Sleep Apnea Surgical History: Back Surgery - [facility] Procedures APPLICATION OF SPLINT (12/18/03) ASSISTANCE WITH RESPIRATORY VENTILATION, 24-96 HRS, CPAP (02/01/17) ASSISTANCE WITH RESPIRATORY VENTILATION, <24 HRS, CPAP (12/12/16) ASSISTANCE WITH RESPIRATORY VENTILATION, >96 HRS, CPAP (01/23/17) DETOXIFICATION SERVICES FOR SUBSTANCE ABUSE TREATMENT (10/31/17) INDIV PSYCHOTHERAPY FOR SUBSTANCE ABUSE TREATMENT, SUPPORT (10/31/17) INDIV PSYCHOTHERAPY FOR SUBSTANCE ABUSE, PSYCHOEDUCATION (10/31/17) INDIVIDUAL PSYCHOTHERAPY, SUPPORTIVE (04/29/17) INJECT/INFUSE NEC (03/17/05) INSERTION OF ENDOTRACHEAL AIRWAY INTO TRACHEA, VIA OPENING (02/01/17) INSERTION OF INFUSION DEV INTO SUP VENA CAVA, PERC APPROACH (02/01/17) INTRODUCE OF OTH THERAP SUBST INTO RESP TRACT, VIA OPENING (01/23/17) INTRODUCE OF OXAZOLIDINONES INTO PERIPH VEIN, PERC APPROACH (02/01/17) MAGNETIC RESONANCE IMAGING OF SPINAL CANAL (07/19/98) RESPIRATORY VENTILATION, LESS THAN 24 CONSECUTIVE HOURS (02/01/17) TETANUS TOXOID ADMINIST (04/24/05) ULTRASONOGRAPHY OF LEFT UPPER EXTREMITY VEINS, GUIDANCE (02/01/17) Family History: States: No Known Family Hx - Social History Hx Alcohol Use: No Hx Substance Use: Yes - Immunization History Hx Tetanus Toxoid Vaccination: No Hx Influenza Vaccination: No Hx Pneumococcal Vaccination: Yes Review Of Systems Constitutional: Negative for: Fever, Chills Cardiovascular: Positive for: Chest Pain. Negative for: Palpitations, Edema Respiratory: Positive for: Shortness of Breath, Wheezing Gastrointestinal: Negative for: Nausea, Vomiting, Abdominal Pain Musculoskeletal: Negative for: Back Pain Skin: Negative for: Rash Neurological: Negative for: Weakness, Numbness, Headache, Dizziness Physical Exam - Physical Exam Appears: Well, Non-toxic, Other (speaking in full sentences, in mild respiratory distress) Skin: Normal Color, Warm, Dry, No Rash Eye(s): right: Normal Inspection (right eye prosthesis), left: PERRL, EOMI Oral Mucosa: Moist Chest: Symmetrical Cardiovascular: Rhythm Regular Respiratory: Decreased Breath Sounds (B/L), Accessory Muscle Use (Mild), No Rales, No Rhonchi, Wheezing (B/L diffuse expiratory) Gastrointestinal/Abdominal: Normal Exam, Bowel Sounds, Soft, No Tenderness Extremity: Normal ROM, No Pedal Edema, No Calf Tenderness Pulses: Left Dorsalis Pedis: Normal, Right Dorsalis Pedis: Normal Neurological/Psych: Oriented x3 ED Course And Treatment - Laboratory Results Result Diagrams: 02/27/18 10:16 02/27/18 10:16 ECG: Interpreted By Me, Viewed By Me ECG Rhythm: Sinus Tachycardia ECG Interpretation: Abnormal Interpretation Of ECG: Right axis deviation. No acute ST/T wave changes Rate From EC (bpm) O2 Sat by Pulse Oximetry: 95 (RA) Pulse Ox Interpretation: Normal - Other Rad CXR X-Ray: Viewed By Me, Read By Radiologist Interpretation: Accession No. : [id number]. Patient Name / ID : DIVINA BLACKWELL / [id number]. Exam Date : 02/27/2018 10:03:35 ( Approved ). Study Comment : Sex / Age : F / 57Y. Creator : Skip Kurtz MD. Dictator : Job Training Specialist : Motor Vehicle Lecturer : Skip Kurtz MD. Approver2 : Report Date : 02/27/2018 10:23:17. My Comment : . PROCEDURE: CHEST RADIOGRAPH, 1 VIEW. HISTORY: SOB. COMPARISON: Comparison chest 12/09/2017. FINDINGS: LUNGS: Hyperinflation with flattened diaphragms consistent with COPD or emphysema. PLEURA: No pneumothorax or pleural fluid seen. CARDIOVASCULAR: Normal. OSSEOUS STRUCTURES: No significant abnormalities. VISUALIZED UPPER ABDOMEN: Normal. OTHER FINDINGS: None. IMPRESSION: Hyperinflation with flattened diaphragms consistent with COPD or emphysema. Progress Note: EKG, Bloodwork, Chest X-Ray ordered and reviewed. Patient given IV solumedrol, nebulizer treatments, and placed on Bipap. Patient given her PO Methadone dose once SOB improved. Reevaluation Time: 11:40 Reassessment Condition: Improved (Patient resting more comfortably, (+) improved air entry B/L, scattered wheezing B/L, no accessory muscle use - Bipap removed.) - Physician Consult Information Physician Contacted: Augustine Rico Outcome Of Conversation: Discussed patient with medicine manager of organizational development, agrees with admission for COPD exacerbatioh. Pulmonary consult for Dr. Lozoya, and psych consult for Dr. Stalin simon. Critical Care Time - Critical Care Note Total Time (in mins): 45 Documented critical care: time excludes all time spent performing seperately billable procedures. Disposition - Disposition Disposition: HOSPITALIZED Disposition Time: 11:46 Condition: STABLE - Clinical Impression Clinical Impression: COPD exacerbation, Dyspnea, Methadone dependence - Scribe Statement The provider has reviewed the documentation as recorded by the Scribe (Tyrone Estevez) All medical record entries made by the Scribe were at my direction and personally dictated by me. I have reviewed the chart and agree that the record accurately reflects my personal performance of the history, physical exam, medical decision making, and the department course for this patient. I have also personally directed, reviewed, and agree with the discharge instructions and disposition. Decision To Admit - Pt Status Changed To: Hospital Disposition Of: Inpatient - Admit Certification Admit to Inpatient:: After my assessment, the patient will require hospitalization for at least two midnights. This is because of the severity of symptoms shown, intensity of services needed, and/or the medical risk in this patient being treated as an outpatient. - InPatient: Physician Admission Certification: I certify that this patient requires 2 or more midnights of care for the following reason:: see notes - . Bed Request Type: Telemetry Admitting Physician: Augustine Rico Patient Diagnosis: COPD exacerbation, Methadone dependence
[2018-02-27] MEDS ORDERED: Albuterol 0.083% Inhal Sol (2.5 mg/3 mL) UD ONE (11:16)
[2018-02-27] MEDS ORDERED: Albuterol 0.083% Inhal Sol (2.5 mg/3 mL) UD IH PRN (12:58)
--- NOTE | 2018-02-27 15:37 | CP.PCM.HP ---
Past Patient History - Infectious Disease Hx of Infectious Diseases: None - Tetanus Immunizations Tetanus Immunization: Unknown - Past Medical History & Family History Past Medical History?: Yes - Past Social History Smoking Status: Light Smoker < 10 Cigarettes Daily - CARDIAC Hx Cardiac Disorders: Yes Hx Cardia Arrhythmia: Yes Hx Hypertension: Yes - PULMONARY Hx Respiratory Disorders: Yes Hx Asthma: Yes Hx Bronchitis: Yes Hx Chronic Obstructive Pulmonary Disease (COPD): Yes Hx Emphysema: Yes Hx Sleep Apnea: Yes - NEUROLOGICAL Hx Neurological Disorder: No Hx Seizures: No - HEENT Hx HEENT Problems: 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 - RENAL Hx Chronic Kidney Disease: No - ENDOCRINE/METABOLIC Hx Endocrine Disorders: Yes Hx Diabetes Mellitus Type 2: Yes - HEMATOLOGICAL/ONCOLOGICAL Hx Blood Disorders: Yes Hx Anemia: Yes - INTEGUMENTARY Hx Dermatological Problems: No - MUSCULOSKELETAL/RHEUMATOLOGICAL Hx Musculoskeletal Disorders: No Hx Falls: No - GASTROINTESTINAL Hx Gastrointestinal Disorders: Yes (constipation at times) - GENITOURINARY/GYNECOLOGICAL Hx Genitourinary Disorders: No Hx Sexually Transmitted Disorders: No - PSYCHIATRIC Hx Psychophysiologic Disorder: Yes Hx Anxiety: Yes Hx Depression: Yes Hx Substance Use: Yes - SURGICAL HISTORY Hx Surgeries: No Hx Coronary Stent: No - ANESTHESIA Hx Anesthesia: Yes Hx Anesthesia Reactions: No Hx Malignant Hyperthermia: No Has any member of the family had a problem w/ anesthesia?: No Meds Allergies/Adverse Reactions: Allergies Allergy/AdvReac Type Severity Reaction Status Date / Time Penicillins Allergy ANAPHYLAXIS Verified 12/09/17 16:03 Physical Exam - Constitutional Appears: Well - Head Exam Head Exam: ATRAUMATIC, NORMAL INSPECTION, NORMOCEPHALIC - Eye Exam Eye Exam: EOMI, Normal appearance, PERRL Pupil Exam: NORMAL ACCOMODATION, PERRL - ENT Exam ENT Exam: Mucous Membranes Moist, Normal Exam - Neck Exam Neck exam: Positive for: Normal Inspection - Respiratory Exam Respiratory Exam: Decreased Breath Sounds - Cardiovascular Exam Cardiovascular Exam: REGULAR RHYTHM, +S1, +S2 - GI/Abdominal Exam GI & Abdominal Exam: Diminished Bowel Sounds, Soft - Rectal Exam Rectal Exam: Deferred Results - Vital Signs Recent Vital Signs: Last Vital Signs Temp 97.4 F L 02/27/18 14:53 Pulse 69 02/27/18 14:53 Resp 22 02/27/18 14:53 BP 113/64 02/27/18 14:53 Pulse Ox 96 02/27/18 14:53 - Labs Result Diagrams: 02/27/18 10:16 02/27/18 10:16 Labs: Laboratory Results - last 24 hr 02/27/18 02/27/18 02/27/18 10:16 10:16 10:16 WBC 7.7 RBC 4.53 Hgb 14.8 Hct 42.8 MCV 94.4 MCH 32.7 H MCHC 34.6 RDW 14.2 Plt Count 187 MPV 8.6 Neut % (Auto) 68.0 Lymph % (Auto) 18.8 L [place] % (Auto) 8.7 Eos % (Auto) 3.7 Baso % (Auto) 0.8 Neut # (Auto) 5.2 Lymph # (Auto) 1.4 [place] # (Auto) 0.7 Eos # (Auto) 0.3 Baso # (Auto) 0.1 PT 11.0 INR 1.0 APTT 38 H Sodium 143 Potassium 3.8 Chloride 101 Carbon Dioxide 34 H Anion Gap 12 BUN 6 L Creatinine 0.5 L Est GFR ( Amer) > 60 Est GFR (Non-Af Amer) > 60 Random Glucose 123 H Calcium 8.9 Total Bilirubin 0.9 AST 204 H D ALT 252 H D Alkaline Phosphatase 106 Total Creatine Kinase 43 CK-MB (Mass) 0.71 Troponin I < 0.0120 NT-Pro-B Natriuret Pep 147 Total Protein 7.2 Albumin 3.9 Globulin 3.3 Albumin/Globulin Ratio 1.2
--- NOTE | 2018-02-27 15:45 | CP.PCM.PCO ---
Physician Communication Note - Physician Communication Note Physician Communication Note: Pt will be seen by Psych C/L (Dr. Neil and Eric ) tomorrow
[2018-02-27] MEDS: MethylPREDNISolone 40 mg Vial IVP SCH ×2 (17:40→21:26)
[2018-02-27] MEDS: Azithromycin 500 MG in Sodium Chloride 0.9% 250 ML IVPB SCH (17:41)
[2018-02-27] MEDS ORDERED: Theophylline 80 mg/15 ml Liq UD PO SCH (18:00)
[2018-02-27] MEDS: Ciprofloxacin 400mg/200ml D5W 400 MG/200 ML BAG IVPB SCH (19:03)
[2018-02-27] MEDS: Fluticasone-Salmeterol 250-50mcg Diskus INH SCH (20:17)
[2018-02-27] MEDS: Albuterol-Ipratrop 3 mg / 0.5 (3 ml) UD INH SCH (20:18)
[2018-02-27] MEDS: Theophylline 80 mg/15 ml Liq UD PO SCH (21:25)
[2018-02-28] MEDS: Albuterol-Ipratrop 3 mg / 0.5 (3 ml) UD INH SCH ×4 (01:21→19:30)
[2018-02-28] MEDS: Ciprofloxacin 400mg/200ml D5W 400 MG/200 ML BAG IVPB SCH ×2 (06:41→18:21)
[2018-02-28] MEDS: MethylPREDNISolone 40 mg Vial IVP SCH ×3 (06:45→21:40)
[2018-02-28] MEDS: Fluticasone-Salmeterol 250-50mcg Diskus INH SCH ×2 (07:44→19:31)
[2018-02-28 09:23] LABS: BASO % 0.5 % (0.0-2.0); HEMOGLOBIN 13.6 g/dL (11.0-16.0); LYMPH # 0.7 K/uL (1.0-4.3); LYMPH % 9.5 % (20.0-40.0); MEAN CELL VOLUME 95.7 fL (81.0-99.0); MEAN CORPUSCULAR HEMOGLOBIN 32.5 pg (27.0-31.0); MEAN PLATELET VOLUME 9.4 fL (7.2-11.7); MONO # 0.3 K/uL (0.0-0.8); MONO % 4.6 % (0.0-10.0); NEUT # 6.2 K/uL (1.8-7.0); NEUT % 85.4 % (50.0-75.0); PLATELET COUNT 159 K/uL (130-400); RBC 4.18 Mil/uL (3.80-5.20); RED CELL DISTRIBUTION WIDTH 14.5 % (11.5-14.5); WHITE BLOOD COUNT 7.2 K/uL (4.8-10.8)
[2018-02-28 09:35] LABS: ALB/GLOB RATIO 1.2 (1.0-2.1); ALBUMIN 3.4 g/dL (3.5-5.0); ALT/SGPT 204 U/L (9-52); AST/SGOT 135 U/L (14-36); BLOOD UREA NITROGEN 13 mg/dL (7-17); CALCIUM 8.7 mg/dl (8.6-10.4); GFR AFRICAN-AMERICAN > 60; GFR NON-AFRICAN AMERICAN > 60
[2018-02-28 10:05] LABS: BANDS 8 % (0-2); LYMPHOCYTE 9 % (20-40); MONOCYTE 6 % (0-10); NEUTROPHIL 77 % (50-75); PLATELET ESTIMATE NORMAL (NORMAL); TOTAL CELLS COUNTED 100
[2018-02-28] MEDS: Theophylline 80 mg/15 ml Liq UD PO SCH ×4 (10:18→21:40)
--- NOTE | 2018-02-28 10:31 | PCM.PSYCH ---
Initial Psychiatric Evaluation - Initial Psychiatric Evaluation Type of Admission: Voluntary Legal Status: Capacity Chief Complaint (in patient's own words): "I want my methadone" History of Present Illness and Precipitating Events: The pt is seen, chart reviewed, case was discussed. The patient is a 59 year old female that was admitted to the hospital following a COPD exacerbation. Psych was consulted for depressed mood and withdrawal symptoms. She was seen at [facility] and said that I want my methadone. The patient has been on methadone for one week for her chronic heroin abuse. She has abused heroine for three years. Patient states that she uses 15 bags of heroin a day and injects into her hands and elbow. She states that she was on oxycodone for 10 years before she was taken off it following which she started using heroin. Patient lives with her son and daughter and her son provides her money for purchasing the heroin. She states that she is going through withdrawal and reports withdrawal symptoms including nausea, headaches, cramps and sweating. She reports depressed mood and at times feelings of hopelessness and helplessness. She denies any AVH or any paranoia. She has previously gone through detox at [facility] for 6 days. Past Medical History: COPD, hypertension, emphysema, blind in one eye Family Hx: mutliple family members have substance abuse issues Current Medications: Active Medications Generic Name Dose Route Start Last Admin Trade Name Freq PRN Reason Stop Dose Admin Albuterol Sulfate 2.5 mg 02/27/18 12:58 Albuterol 0.083% Inhal Maureen (2.5 Mg/3 Ml) Ud IH Q2 PRN SOB Albuterol/Ipratropium 3 ml 02/27/18 20:00 02/28/18 07:44 Duoneb 3 Mg/0.5 Mg (3 Ml) Ud INH 3 ml RQ6 NITHIN Administration Hydroxyzine HCl 25 mg 02/27/18 16:59 Atarax PO BID PRN Anxiety Ciprofloxacin 400 mg in 200 mls @ 133 mls/hr 02/27/18 18:00 02/28/18 06:41 Cipro 400mg/200ml Dsw IVPB 03/04/18 18:01 133 mls/hr Q12H NITHIN Administration Protocol Azithromycin 500 mg/ Sodium 250 mls @ 250 mls/hr 02/27/18 17:00 02/27/18 17: 41 Chloride IVPB 250 mls/hr DAILY@1700 NITHIN Administration Protocol Ibuprofen 600 mg 02/27/18 16:59 Motrin Tab PO Q6 PRN Pain, moderate (4-7) Methylprednisolone 40 mg 02/27/18 17:00 02/28/18 06:45 Solu-Medrol IVP 40 mg Q8 NITHIN Administration Montelukast Sodium 10 mg 02/27/18 22:00 02/27/18 21:25 Singulair PO 10 mg HS NITHIN Administration Quetiapine Fumarate 50 mg 02/27/18 22:00 02/27/18 21:26 Seroquel PO 50 mg HS NITHIN Administration Fluticasone/Salmeterol 1 puff 02/27/18 20:00 02/28/18 07:44 Advair Diskus 250/50 INH 1 puff RQ12 NITHIN Administration Theophylline 100 mg 02/27/18 22:00 02/28/18 10:18 Elixophyllin Liq PO 100 mg QID NITHIN Administration Trazodone HCl 100 mg 02/27/18 22:00 02/27/18 21:26 Desyrel PO 100 mg HS NITHIN Administration Past Psychiatric History - Past Psychiatric History Previous Treatment History: Inpatient At [facility]: [facility], [place] Date: 04/29/17 Nature of Treatment: detox History of Abuse: History of heroin abuse for 3 years. Pertinent Medical Hx (Current Medical&Sleep Prob, Allergies): Allergies Allergy/AdvReac Type Severity Reaction Status Date / Time Penicillins Allergy ANAPHYLAXIS Verified 12/09/17 16:03 Albuterol HFA [Ventolin HFA 90 mcg/actuation (8 g)] 1 puff INH RQ4 PRN #1 inhaler 11/05/17 Ibuprofen [Motrin Tab] 600 mg PO Q6 PRN tab 11/05/17 QUEtiapine [SEROquel] 50 mg PO HS #30 tab 11/05/17 hydrOXYzine HCl [Atarax] 25 mg PO BID PRN #60 tab 11/05/17 traZODone [Desyrel] 100 mg PO HS #30 tab 11/05/17 Methylprednisolone [Medrol Dose Pack (21 tabs)] 4 mg PO DAILY #21 mg 12/11/17 Review of Systems - Review of Systems All systems: reviewed and no additional remarkable complaints except - Constitutional Constitutional: Sweats - Gastrointestinal Gastrointestinal: Nausea - Psychiatric Psychiatric: Change in Appetite, Depression, Irritability. absent: Suicidal Ideation Mental Status Examination - Personal Presentation Personal Presentation: Looks older than stated age - Affect Affect: Constricted, Depressed - Motor Activity Motor Activity: Calm Additional comments: anxious - Reliability in Providing Information Reliability in Providing Information: Fair - Speech Speech: Organized - Mood Mood: Depressed, Anxious - Formal Thought Process Formal Thought Process: No Impairment - Obsessions/Compulsions Obsessions: No Compulsions: No - Cognitive Functions Orientation: Person, Place, Situation, Time Sensorium: Alert Attention/Concentration: Attentive Abstract Thinking: [place] Estimate of Intelligence: Below average Judgement: Imparied, as evidence by: Poor judgement, Intact, as evidence by: Insight regarding need for hospitalization - Risk Risk: Withdrawal, Diminished functioning - Limitations Limitations: Living alone DSM 5 DX - DSM 5 DSM 5 Diagnosis: Opiod use disorder severe Opioid withdrawal Major depressive disorder recurrent moderate - Recommended/Plan of Treatment Treatment Recommendations and Plan of Treatment: Opiod use disorder severe Opioid withdrawal Major depressive disorder recurrent moderate Start patient on Methadone Supportive therapy
--- NOTE | 2018-02-28 11:00 | CT ---
PROCEDURE: CT Abdomen and Pelvis without intravenous contrast HISTORY: pain COMPARISON: None. TECHNIQUE: Technique. Contrast dose: Radiation dose: Total exam DLP = mGy-cm. This CT exam was performed using one or more of the following dose reduction techniques: Automated exposure control, adjustment of the mA and/or kV according to patient size, and/or use of iterative reconstruction technique. FINDINGS: LOWER THORAX: Unremarkable. LIVER: Unremarkable. No gross lesion or ductal dilatation. GALLBLADDER AND BILE DUCTS: Unremarkable. PANCREAS: Unremarkable. No gross lesion or ductal dilatation. SPLEEN: Unremarkable. ADRENALS: Unremarkable. No mass. KIDNEYS AND URETERS: Unremarkable. No hydronephrosis. No solid mass. VASCULATURE: Unremarkable. No aortic aneurysm. BOWEL: Unremarkable. No obstruction. No gross mural thickening. APPENDIX: Unremarkable. Normal appendix. PERITONEUM: Unremarkable. No free fluid. No free air. LYMPH NODES: Unremarkable. No enlarged lymph nodes. BLADDER: Unremarkable. REPRODUCTIVE: Unremarkable. BONES: No acute fracture. Scoliosis. OTHER FINDINGS: None. IMPRESSION: No acute pathology.
[2018-02-28] MEDS: Enoxaparin 40 mg Syringe SC SCH (14:54)
[2018-02-28] MEDS: Azithromycin 500 MG in Sodium Chloride 0.9% 250 ML IVPB SCH (16:36)
--- NOTE | 2018-02-28 16:39 | CP.PCM.PN ---
Subjective - Date & Time of Evaluation Date of Evaluation: 02/28/18 Time of Evaluation: 14:30 - Subjective Subjective: PGY2 Medicine Note for Dr. Kavya Rico Patient seen and examined at bedside this morning. No acute events overnight. Patient reports improvement in her breathing. She states her hands have started to shake and she is fearful of going through withdrawal. She has not received her methadone dose yet this morning and is requesting it. She states she still wants the 20mg and not the 30mg she was previously prescribed due to associated shortness of breath. She denies any cough and has no other complaints at this time. Denies fevers, chills, nausea, vomiting, diarrhea, constipation, chest pain, shortness of breath, palpitations, abdominal pain, headaches or vision changes. Objective - Vital Signs/Intake and Output Vital Signs (last 24 hours): Temp Pulse Resp BP Pulse Ox 97.9 F 69 20 95/54 L 99 02/28/18 07:45 02/28/18 07:57 02/28/18 07:45 02/28/18 08:51 02/28/18 07:45 - Medications Medications: Current Medications Albuterol Sulfate (Albuterol 0.083% Inhal Maureen (2.5 Mg/3 Ml) Ud) 2.5 mg IH Q2 PRN PRN Reason: SOB Albuterol/Ipratropium (Duoneb 3 Mg/0.5 Mg (3 Ml) Ud) 3 ml INH RQ6 [facility] Last Admin: 02/28/18 13:29 Dose: 3 ml Enoxaparin Sodium (Lovenox) 40 mg SC DAILY [facility] Last Admin: 02/28/18 14:54 Dose: 40 mg Hydroxyzine HCl (Atarax) 25 mg PO BID PRN PRN Reason: Anxiety Ciprofloxacin (Cipro 400mg/200ml Dsw) 400 mg in 200 mls @ 133 mls/hr IVPB Q12H NITHIN PRN Reason: Protocol Stop: 03/04/18 18:01 Last Admin: 02/28/18 06:41 Dose: 133 mls/hr Azithromycin 500 mg/ Sodium (Chloride) 250 mls @ 250 mls/hr IVPB DAILY@1700 NITHIN PRN Reason: Protocol Last Admin: 02/27/18 17:41 Dose: 250 mls/hr Ibuprofen (Motrin Tab) 600 mg PO Q6 PRN PRN Reason: Pain, moderate (4-7) Methylprednisolone (Solu-Medrol) 40 mg IVP Q8 [facility] Last Admin: 02/28/18 14:50 Dose: 40 mg Montelukast Sodium (Singulair) 10 mg PO [facility] Last Admin: 02/27/18 21:25 Dose: 10 mg Quetiapine Fumarate (Seroquel) 50 mg PO [facility] Last Admin: 02/27/18 21:26 Dose: 50 mg Fluticasone/Salmeterol (Advair Diskus 250/50) 1 puff INH RQ12 [facility] Last Admin: 02/28/18 07:44 Dose: 1 puff Theophylline (Elixophyllin Liq) 100 mg PO QID [facility] Last Admin: 02/28/18 14:49 Dose: 100 mg Trazodone HCl (Desyrel) 100 mg PO [facility] Last Admin: 02/27/18 21:26 Dose: 100 mg - Labs Labs: 02/28/18 09:12 02/28/18 09:12 PT 11.0 SECONDS (9.7-12.2) 02/27/18 10:16 INR 1.0 02/27/18 10:16 APTT 38 SECONDS (21-34) H 02/27/18 10:16 - Constitutional Appears: Non-toxic, No Acute Distress, Chronically Ill - Head Exam Head Exam: ATRAUMATIC - Eye Exam Eye Exam: EOMI. absent: Normal appearance (right eye prosthesis) - ENT Exam ENT Exam: Mucous Membranes Moist - Respiratory Exam Respiratory Exam: Decreased Breath Sounds, NORMAL BREATHING PATTERN. absent: Accessory Muscle Use, Rales, Rhonchi, Wheezes, Respiratory Distress - Cardiovascular Exam Cardiovascular Exam: REGULAR RHYTHM, +S1, +S2 - GI/Abdominal Exam GI & Abdominal Exam: Soft, Hyperactive Bowel Sounds. absent: Distended, Firm, Guarding, Rigid, Tenderness - Extremities Exam Extremities Exam: absent: Calf Tenderness, Pedal Edema - Neurological Exam Neurological Exam: Alert, Awake, CN II-XII Intact, Oriented x3 - Psychiatric Exam Psychiatric exam: Normal Affect, Normal Mood - Skin Skin Exam: Dry, Warm Assessment and Plan - Assessment and Plan (Free Text) Plan: COPD exacerbation - Pulm consulted, Dr. Garza - CXR 02/27: Hyperinflation with flattened diaphragms consistent with COPD or emphysema. - Pt was afebrile and had normal WBC count on admission - Continue Duoneb, Solumedrol 40 mg IVP q 8, Montelukast, Advair Diskus - Azithro and Cipro - NC prn to maintain O2>92% Abdominal Pain - resolved - Abd/Pelvis 02/28: No acute pathology. - continue to monitor HTN - Currently normal BP. Will continue to monitor Anxiety - Continue home medications Seroquel and Trazadone - Psych, Dr. Gant is consulted Heroin abuse - Pt is counselled on the adverse risks of heroin abuse and recommend cessation. - Psych is consulted and pending further recs Prophylaxis - SCDs - Lovenox All orders and management per Dr. Kavya Rico
[2018-02-28] MEDS ORDERED: Theophylline 80 mg/15 ml Liq UD PO SCH (18:00)
--- NOTE | 2018-02-28 20:01 | CARD ---
APPROVED REPORT EKG Measurement Heart [id number] <Conclusion> Sinus tachycardia Rightward axis Borderline ECG
--- NOTE | 2018-02-28 20:36 | CP.PCM.PN ---
Subjective - Date & Time of Evaluation Date of Evaluation: 02/28/18 Time of Evaluation: 10:30 - Subjective Subjective: clinically same Objective - Vital Signs/Intake and Output Vital Signs (last 24 hours): Temp Pulse Resp BP Pulse Ox 98.4 F 93 H 20 90/51 L 97 02/28/18 15:42 02/28/18 15:55 02/28/18 15:42 02/28/18 15:42 02/28/18 15:42 - Medications Medications: Current Medications Albuterol Sulfate (Albuterol 0.083% Inhal Maureen (2.5 Mg/3 Ml) Ud) 2.5 mg IH Q2 PRN PRN Reason: SOB Albuterol/Ipratropium (Duoneb 3 Mg/0.5 Mg (3 Ml) Ud) 3 ml INH RQ6 [facility] Last Admin: 02/28/18 19:30 Dose: 3 ml Enoxaparin Sodium (Lovenox) 40 mg SC DAILY [facility] Last Admin: 02/28/18 14:54 Dose: 40 mg Hydroxyzine HCl (Atarax) 25 mg PO BID PRN PRN Reason: Anxiety Ciprofloxacin (Cipro 400mg/200ml Dsw) 400 mg in 200 mls @ 133 mls/hr IVPB Q12H NITHIN PRN Reason: Protocol Stop: 03/04/18 18:01 Last Admin: 02/28/18 18:21 Dose: 133 mls/hr Azithromycin 500 mg/ Sodium (Chloride) 250 mls @ 250 mls/hr IVPB DAILY@1700 NITHIN PRN Reason: Protocol Last Admin: 02/28/18 16:36 Dose: 250 mls/hr Ibuprofen (Motrin Tab) 600 mg PO Q6 PRN PRN Reason: Pain, moderate (4-7) Methylprednisolone (Solu-Medrol) 40 mg IVP Q8 [facility] Last Admin: 02/28/18 14:50 Dose: 40 mg Montelukast Sodium (Singulair) 10 mg PO HS [facility] Last Admin: 02/27/18 21:25 Dose: 10 mg Quetiapine Fumarate (Seroquel) 50 mg PO HS [facility] Last Admin: 02/27/18 21:26 Dose: 50 mg Fluticasone/Salmeterol (Advair Diskus 250/50) 1 puff INH RQ12 [facility] Last Admin: 02/28/18 19:31 Dose: 1 puff Theophylline (Elixophyllin Liq) 100 mg PO QID [facility] Last Admin: 02/28/18 14:49 Dose: 100 mg Trazodone HCl (Desyrel) 100 mg PO HS [facility] Last Admin: 02/27/18 21:26 Dose: 100 mg - Labs Labs: 02/28/18 09:12 02/28/18 09:12 PT 11.0 SECONDS (9.7-12.2) 02/27/18 10:16 INR 1.0 02/27/18 10:16 APTT 38 SECONDS (21-34) H 02/27/18 10:16 - Constitutional Appears: Well - Head Exam Head Exam: ATRAUMATIC, NORMAL INSPECTION, NORMOCEPHALIC - Eye Exam Eye Exam: EOMI, Normal appearance, PERRL Pupil Exam: NORMAL ACCOMODATION, PERRL - ENT Exam ENT Exam: Mucous Membranes Moist, Normal Exam - Neck Exam Neck Exam: Full ROM, Normal Inspection. absent: Lymphadenopathy - Respiratory Exam Respiratory Exam: Decreased Breath Sounds - Cardiovascular Exam Cardiovascular Exam: REGULAR RHYTHM, +S1, +S2 - GI/Abdominal Exam GI & Abdominal Exam: Soft, Diminished Bowel Sounds - Rectal Exam Rectal Exam: Deferred Assessment and Plan (1) Abnormal chest xray Status: Acute (2) Acute bronchitis Status: Acute (3) C. difficile diarrhea Status: Acute (4) COPD exacerbation Status: Acute (5) Chest pain Status: Acute (6) Dyspnea Status: Acute (7) Hypercarbia Status: Acute (8) Methadone dependence Status: Acute (9) Opiate use Status: Acute (10) Opioid dependence Status: Acute (11) Pneumonia Status: Acute (12) Sepsis Status: Acute (13) Tobacco abuse Status: Acute (14) Tobacco abuse counseling Status: Acute (15) UTI (urinary tract infection) Status: Acute (16) Acute exacerbation of chronic obstructive pulmonary disease (COPD) Status: Chronic (17) Anxiety Status: Chronic (18) Chronic obstructive airway disease Status: Chronic (19) Chronic, continuous use of opioids Status: Chronic (20) Depression Status: Chronic (21) IV drug user Status: Chronic - Assessment and Plan (Free Text) Plan: COPD exacerbation - Pulm consulted, Dr. Garza - CXR 02/27: Hyperinflation with flattened diaphragms consistent with COPD or emphysema. - Pt was afebrile and had normal WBC count on admission - Continue Duoneb, Solumedrol 40 mg IVP q 8, Montelukast, Advair Diskus - Azithro and Cipro - NC prn to maintain O2>92% Abdominal Pain - resolved - Abd/Pelvis 02/28: No acute pathology. - continue to monitor HTN - Currently normal BP. Will continue to monitor Anxiety - Continue home medications Seroquel and Trazadone - Psych, Dr. Gant is consulted Heroin abuse - Pt is counselled on the adverse risks of heroin abuse and recommend cessation. - Psych is consulted and pending further recs Prophylaxis - SCDs - Lovenox
[2018-03-01] MEDS: Albuterol-Ipratrop 3 mg / 0.5 (3 ml) UD INH SCH ×4 (02:24→20:02)
[2018-03-01] MEDS: Ciprofloxacin 400mg/200ml D5W 400 MG/200 ML BAG IVPB SCH (06:19)
[2018-03-01] MEDS: MethylPREDNISolone 40 mg Vial IVP SCH ×3 (06:19→21:40)
[2018-03-01] MEDS: Fluticasone-Salmeterol 250-50mcg Diskus INH SCH (07:45)
--- NOTE | 2018-03-01 09:19 | CP.PCM.PN ---
Subjective - Date & Time of Evaluation Date of Evaluation: 03/01/18 Time of Evaluation: 07:00 - Subjective Subjective: PGY2 Medicine Note for Dr. Kavya Rico Patient seen and examined at bedside this morning. No acute events overnight. Patient states her breathing has improved. She states she is coughing with white phlegm. She denies fever, chest pain, nausea, vomiting, diarrhea or constipation. Objective - Vital Signs/Intake and Output Vital Signs (last 24 hours): Temp Pulse Resp BP Pulse Ox 98.3 F 54 L 20 105/58 L 96 03/01/18 08:36 03/01/18 08:36 03/01/18 08:36 03/01/18 08:36 03/01/18 08:36 - Medications Medications: Current Medications Al Hydrox/Mg Hydrox/Simethicone (Maalox 30 Ml) 30 ml PO TID PRN PRN Reason: Indigestion / Heartburn Albuterol Sulfate (Albuterol 0.083% Inhal Maureen (2.5 Mg/3 Ml) Ud) 2.5 mg IH Q2 PRN PRN Reason: SOB Albuterol/Ipratropium (Duoneb 3 Mg/0.5 Mg (3 Ml) Ud) 3 ml INH RQ6 [facility] Last Admin: 03/01/18 07:45 Dose: 3 ml Enoxaparin Sodium (Lovenox) 40 mg SC DAILY [facility] Last Admin: 02/28/18 14:54 Dose: 40 mg Hydroxyzine HCl (Atarax) 25 mg PO BID PRN PRN Reason: Anxiety Ciprofloxacin (Cipro 400mg/200ml Dsw) 400 mg in 200 mls @ 133 mls/hr IVPB Q12H NITHIN PRN Reason: Protocol Stop: 03/04/18 18:01 Last Admin: 03/01/18 06:19 Dose: 133 mls/hr Azithromycin 500 mg/ Sodium (Chloride) 250 mls @ 250 mls/hr IVPB DAILY@1700 NITHIN PRN Reason: Protocol Last Admin: 02/28/18 16:36 Dose: 250 mls/hr Ibuprofen (Motrin Tab) 600 mg PO Q6 PRN PRN Reason: Pain, moderate (4-7) Loperamide HCl (Imodium) 2 mg PO Q8 PRN PRN Reason: Diarrhea Lorazepam (Ativan) 1 mg PO Q6 PRN PRN Reason: Symptoms of alcohol withdrawl Methadone HCl (Methadone) 15 mg PO DAILY [facility] PRN Reason: Taper Stop: 03/04/18 09:59 Methylprednisolone (Solu-Medrol) 40 mg IVP Q8 [facility] Last Admin: 03/01/18 06:19 Dose: 40 mg Montelukast Sodium (Singulair) 10 mg PO [facility] Last Admin: 02/28/18 21:40 Dose: 10 mg Ondansetron HCl (Zofran Tab) 4 mg PO Q8 PRN PRN Reason: Nausea/Vomiting Pseudoephedrine HCl (Sudafed Tab) 60 mg PO QID PRN PRN Reason: Nasal/Sinus Congestion Quetiapine Fumarate (Seroquel) 50 mg PO [facility] Last Admin: 02/28/18 21:40 Dose: 50 mg Fluticasone/Salmeterol (Advair Diskus 250/50) 1 puff INH RQ12 [facility] Last Admin: 03/01/18 07:45 Dose: 1 puff Theophylline (Elixophyllin Liq) 100 mg PO QID [facility] Last Admin: 02/28/18 21:40 Dose: 100 mg Trazodone HCl (Desyrel) 100 mg PO [facility] Last Admin: 02/28/18 21:40 Dose: 100 mg - Labs Labs: 02/28/18 09:12 02/28/18 09:12 PT 11.0 SECONDS (9.7-12.2) 02/27/18 10:16 INR 1.0 02/27/18 10:16 APTT 38 SECONDS (21-34) H 02/27/18 10:16 - Constitutional Appears: Chronically Ill - Head Exam Head Exam: ATRAUMATIC, NORMAL INSPECTION - Eye Exam Eye Exam: EOMI, Normal appearance - ENT Exam ENT Exam: Mucous Membranes Dry - Respiratory Exam Respiratory Exam: Decreased Breath Sounds, NORMAL BREATHING PATTERN. absent: Rales, Rhonchi, Wheezes - Cardiovascular Exam Cardiovascular Exam: REGULAR RHYTHM, +S1, +S2 - GI/Abdominal Exam GI & Abdominal Exam: Soft, Normal Bowel Sounds. absent: Tenderness - Extremities Exam Extremities Exam: Normal Inspection - Neurological Exam Neurological Exam: Alert, Awake, Oriented x3 - Psychiatric Exam Psychiatric exam: Normal Affect, Normal Mood - Skin Skin Exam: Normal Color Assessment and Plan - Assessment and Plan (Free Text) Assessment: COPD exacerbation - Pulm consulted, Dr. Garza - CXR 02/27: Hyperinflation with flattened diaphragms consistent with COPD or emphysema. - Pt was afebrile and had normal WBC count on admission - Continue Duoneb, Solumedrol 40 mg IVP q 8, Montelukast, Advair Diskus; Guaifenesin 600mg bid - Azithro and Cipro - Florastor 250mg daily - NC prn to maintain O2>92% Abdominal Pain - resolved - Abd/Pelvis 02/28: No acute pathology. - continue to monitor HTN - Currently normal BP. Will continue to monitor Anxiety - Continue home medications Seroquel and Trazadone - Psych, Dr. Gant is consulted Heroin abuse - Pt is counselled on the adverse risks of heroin abuse and recommend cessation. - Psych is consulted and pending further recs - Patient given 5mg of Methadone 03/01/18; Methadone 20mg once 02/28/18 Prophylaxis - SCDs - Lovenox All orders and management per Dr. Kavya Rico
[2018-03-01] MEDS: Enoxaparin 40 mg Syringe SC SCH (10:27)
[2018-03-01] MEDS: Theophylline 80 mg/15 ml Liq UD PO SCH ×2 (10:27→14:35)
[2018-03-01 14:09] LABS: BASO % 0.1 % (0.0-2.0); HEMOGLOBIN 13.1 g/dL (11.0-16.0); LYMPH # 0.5 K/uL (1.0-4.3); LYMPH % 5.3 % (20.0-40.0); MEAN CELL VOLUME 95.2 fL (81.0-99.0); MEAN CORPUSCULAR HEMOGLOBIN 31.7 pg (27.0-31.0); MEAN CORPUSCULAR HGB CONC 33.3 g/dL (33.0-37.0); MEAN PLATELET VOLUME 9.3 fL (7.2-11.7); MONO # 0.4 K/uL (0.0-0.8); MONO % 4.6 % (0.0-10.0); NEUT # 8.6 K/uL (1.8-7.0); PLATELET COUNT 161 K/uL (130-400); RBC 4.12 Mil/uL (3.80-5.20); RED CELL DISTRIBUTION WIDTH 14.4 % (11.5-14.5); WHITE BLOOD COUNT 9.6 K/uL (4.8-10.8)
[2018-03-01 14:48] LABS: ALB/GLOB RATIO 1.1 (1.0-2.1); ALBUMIN 3.1 g/dL (3.5-5.0); ALT/SGPT 152 U/L (9-52); AST/SGOT 66 U/L (14-36); BLOOD UREA NITROGEN 15 mg/dL (7-17); CALCIUM 8.7 mg/dl (8.6-10.4); GFR AFRICAN-AMERICAN > 60; GFR NON-AFRICAN AMERICAN > 60
[2018-03-01 15:30] LABS: LYMPHOCYTE 7 % (20-40); MONOCYTE 3 % (0-10); NEUTROPHIL 90 % (50-75); PLATELET ESTIMATE NORMAL (NORMAL); TOTAL CELLS COUNTED 100
--- NOTE | 2018-03-01 15:38 | CP.PCM.PN ---
Subjective - Date & Time of Evaluation Date of Evaluation: 03/01/18 Time of Evaluation: 09:30 - Subjective Subjective: clinically same Objective - Vital Signs/Intake and Output Vital Signs (last 24 hours): Temp Pulse Resp BP Pulse Ox 98.3 F 54 L 20 105/58 L 96 03/01/18 08:36 03/01/18 08:36 03/01/18 08:36 03/01/18 08:36 03/01/18 08:36 - Medications Medications: Current Medications Al Hydrox/Mg Hydrox/Simethicone (Maalox 30 Ml) 30 ml PO TID PRN PRN Reason: Indigestion / Heartburn Albuterol Sulfate (Albuterol 0.083% Inhal Maureen (2.5 Mg/3 Ml) Ud) 2.5 mg IH Q2 PRN PRN Reason: SOB Albuterol/Ipratropium (Duoneb 3 Mg/0.5 Mg (3 Ml) Ud) 3 ml INH RQ6 [facility] Last Admin: 03/01/18 07:45 Dose: 3 ml Enoxaparin Sodium (Lovenox) 40 mg SC DAILY [facility] Last Admin: 03/01/18 10:27 Dose: 40 mg Guaifenesin (Mucinex [place]) 600 mg PO BID [facility] Hydroxyzine HCl (Atarax) 25 mg PO BID PRN PRN Reason: Anxiety Ciprofloxacin (Cipro 400mg/200ml Dsw) 400 mg in 200 mls @ 133 mls/hr IVPB Q12H [facility] PRN Reason: Protocol Stop: 03/04/18 18:01 Last Admin: 03/01/18 06:19 Dose: 133 mls/hr Azithromycin 500 mg/ Sodium (Chloride) 250 mls @ 250 mls/hr IVPB DAILY@1700 [facility] PRN Reason: Protocol Last Admin: 02/28/18 16:36 Dose: 250 mls/hr Ibuprofen (Motrin Tab) 600 mg PO Q6 PRN PRN Reason: Pain, moderate (4-7) Loperamide HCl (Imodium) 2 mg PO Q8 PRN PRN Reason: Diarrhea Lorazepam (Ativan) 1 mg PO Q6 PRN PRN Reason: Symptoms of alcohol withdrawl Methadone HCl (Methadone) 20 mg PO DAILY [facility] Methylprednisolone (Solu-Medrol) 40 mg IVP Q8 [facility] Last Admin: 03/01/18 14:45 Dose: 40 mg Montelukast Sodium (Singulair) 10 mg PO [facility] Last Admin: 02/28/18 21:40 Dose: 10 mg Ondansetron HCl (Zofran Tab) 4 mg PO Q8 PRN PRN Reason: Nausea/Vomiting Pseudoephedrine HCl (Sudafed Tab) 60 mg PO QID PRN PRN Reason: Nasal/Sinus Congestion Quetiapine Fumarate (Seroquel) 50 mg PO [facility] Last Admin: 02/28/18 21:40 Dose: 50 mg Saccharomyces Boulardii (Florastor) 250 mg PO DAILY [facility] Fluticasone/Salmeterol (Advair Diskus 250/50) 1 puff INH RQ12 [facility] Last Admin: 03/01/18 07:45 Dose: 1 puff Theophylline (Elixophyllin Liq) 100 mg PO QID [facility] Last Admin: 03/01/18 14:35 Dose: 100 mg Trazodone HCl (Desyrel) 100 mg PO [facility] Last Admin: 02/28/18 21:40 Dose: 100 mg - Labs Labs: 03/01/18 13:58 03/01/18 13:58 PT 11.0 SECONDS (9.7-12.2) 02/27/18 10:16 INR 1.0 02/27/18 10:16 APTT 38 SECONDS (21-34) H 02/27/18 10:16 - Constitutional Appears: Well - Head Exam Head Exam: ATRAUMATIC, NORMAL INSPECTION, NORMOCEPHALIC - Eye Exam Eye Exam: EOMI, Normal appearance, PERRL Pupil Exam: NORMAL ACCOMODATION, PERRL - ENT Exam ENT Exam: Mucous Membranes Moist, Normal Exam - Neck Exam Neck Exam: Full ROM, Normal Inspection. absent: Lymphadenopathy - Respiratory Exam Respiratory Exam: Decreased Breath Sounds - Cardiovascular Exam Cardiovascular Exam: REGULAR RHYTHM, +S1, +S2 - GI/Abdominal Exam GI & Abdominal Exam: Soft, Diminished Bowel Sounds - Rectal Exam Rectal Exam: Deferred
--- NOTE | 2018-03-01 16:58 | CP.PCM.CON ---
History of Present Illness - History of Present Illness History of Present Illness: cough sob wheezing on and off h/o heavy smoking for 50 yrs CXR with COPD heavy thick sputum, with diff expectorating Review of Systems - Review of Systems All systems: reviewed and no additional remarkable complaints except - Cardiovascular Cardiovascular: Dyspnea - Respiratory Respiratory: Cough, Excessive Mucous Production Past Patient History - Infectious Disease Hx of Infectious Diseases: None - Tetanus Immunizations Tetanus Immunization: Unknown - Past Medical History & Family History Past Medical History?: Yes - Past Social History Smoking Status: Light Smoker < 10 Cigarettes Daily - CARDIAC Hx Cardia Arrhythmia: Yes Hx Hypertension: Yes - PULMONARY Hx Asthma: Yes Hx Bronchitis: Yes Hx Chronic Obstructive Pulmonary Disease (COPD): Yes Hx Emphysema: Yes Hx Sleep Apnea: Yes - NEUROLOGICAL Hx Neurological Disorder: No Hx Seizures: No - HEENT Hx HEENT Problems: 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 - RENAL Hx Chronic Kidney Disease: No - ENDOCRINE/METABOLIC Hx Endocrine Disorders: Yes Hx Diabetes Mellitus Type 2: Yes - HEMATOLOGICAL/ONCOLOGICAL Hx Anemia: Yes - INTEGUMENTARY Hx Dermatological Problems: No - MUSCULOSKELETAL/RHEUMATOLOGICAL Hx Musculoskeletal Disorders: No Hx Falls: No - GASTROINTESTINAL Hx Gastrointestinal Disorders: Yes (constipation at times) - GENITOURINARY/GYNECOLOGICAL Hx Genitourinary Disorders: No Hx Sexually Transmitted Disorders: No - PSYCHIATRIC Hx Anxiety: Yes Hx Depression: Yes Hx Substance Use: Yes - SURGICAL HISTORY Hx Surgeries: No Hx Coronary Stent: No - ANESTHESIA Hx Anesthesia: Yes Hx Anesthesia Reactions: No Hx Malignant Hyperthermia: No Has any member of the family had a problem w/ anesthesia?: No Meds Allergies/Adverse Reactions: Allergies Allergy/AdvReac Type Severity Reaction Status Date / Time Penicillins Allergy ANAPHYLAXIS Verified 12/09/17 16:03 - Medications Medications: Current Medications Al Hydrox/Mg Hydrox/Simethicone (Maalox 30 Ml) 30 ml PO TID PRN PRN Reason: Indigestion / Heartburn Albuterol Sulfate (Albuterol 0.083% Inhal Maureen (2.5 Mg/3 Ml) Ud) 2.5 mg IH Q2 PRN PRN Reason: SOB Albuterol/Ipratropium (Duoneb 3 Mg/0.5 Mg (3 Ml) Ud) 3 ml INH RQ6 [facility] Last Admin: 03/01/18 16:33 Dose: Not Given Enoxaparin Sodium (Lovenox) 40 mg SC DAILY [facility] Last Admin: 03/01/18 10:27 Dose: 40 mg Guaifenesin (Mucinex La) 600 mg PO BID [facility] Hydroxyzine HCl (Atarax) 25 mg PO BID PRN PRN Reason: Anxiety Ciprofloxacin (Cipro 400mg/200ml Dsw) 400 mg in 200 mls @ 133 mls/hr IVPB Q12H [facility] PRN Reason: Protocol Stop: 03/04/18 18:01 Last Admin: 03/01/18 06:19 Dose: 133 mls/hr Azithromycin 500 mg/ Sodium (Chloride) 250 mls @ 250 mls/hr IVPB DAILY@1700 [facility] PRN Reason: Protocol Last Admin: 02/28/18 16:36 Dose: 250 mls/hr Ibuprofen (Motrin Tab) 600 mg PO Q6 PRN PRN Reason: Pain, moderate (4-7) Loperamide HCl (Imodium) 2 mg PO Q8 PRN PRN Reason: Diarrhea Lorazepam (Ativan) 1 mg PO Q6 PRN PRN Reason: Symptoms of alcohol withdrawl Methadone HCl (Methadone) 20 mg PO DAILY [facility] Methylprednisolone (Solu-Medrol) 40 mg IVP Q8 [facility] Last Admin: 03/01/18 14:45 Dose: 40 mg Montelukast Sodium (Singulair) 10 mg PO [facility] Last Admin: 02/28/18 21:40 Dose: 10 mg Ondansetron HCl (Zofran Tab) 4 mg PO Q8 PRN PRN Reason: Nausea/Vomiting Pseudoephedrine HCl (Sudafed Tab) 60 mg PO QID PRN PRN Reason: Nasal/Sinus Congestion Quetiapine Fumarate (Seroquel) 50 mg PO HS [facility] Last Admin: 02/28/18 21:40 Dose: 50 mg Saccharomyces Boulardii (Florastor) 250 mg PO DAILY [facility] Fluticasone/Salmeterol (Advair Diskus 250/50) 1 puff INH RQ12 [facility] Last Admin: 03/01/18 07:45 Dose: 1 puff Theophylline (Elixophyllin Liq) 100 mg PO QID [facility] Last Admin: 03/01/18 14:35 Dose: 100 mg Trazodone HCl (Desyrel) 100 mg PO HS [facility] Last Admin: 02/28/18 21:40 Dose: 100 mg Physical Exam - Constitutional Appears: Chronically Ill - Head Exam Head Exam: ATRAUMATIC, NORMOCEPHALIC - Eye Exam Eye Exam: Normal appearance Pupil Exam: PERRL - ENT Exam ENT Exam: Mucous Membranes Moist - Respiratory Exam Respiratory Exam: Decreased Breath Sounds - Cardiovascular Exam Cardiovascular Exam: REGULAR RHYTHM, +S1, +S2 - GI/Abdominal Exam GI & Abdominal Exam: Normal Bowel Sounds - Rectal Exam Rectal Exam: Deferred - Neurological Exam Neurological exam: Alert, Oriented x3 - Psychiatric Exam Psychiatric exam: Normal Affect, Normal Mood - Skin Skin Exam: Intact Results - Vital Signs Recent Vital Signs: Last Vital Signs Temp 98 F 03/01/18 15:00 Pulse 104 H 03/01/18 15:00 Resp 18 03/01/18 15:00 BP 100/48 L 03/01/18 15:00 Pulse Ox 96 03/01/18 15:00 - Labs Result Diagrams: 03/01/18 13:58 03/01/18 13:58 Labs: Laboratory Results - last 24 hr 03/01/18 03/01/18 03/01/18 06:37 13:58 13:58 WBC 9.6 RBC 4.12 Hgb 13.1 Hct 39.2 MCV 95.2 MCH 31.7 H MCHC 33.3 RDW 14.4 Plt Count 161 MPV 9.3 Neut % (Auto) 90.0 H Lymph % (Auto) 5.3 L [place] % (Auto) 4.6 Eos % (Auto) 0.0 Baso % (Auto) 0.1 Neut # (Auto) 8.6 H Lymph # (Auto) 0.5 L [place] # (Auto) 0.4 Eos # (Auto) 0.0 Baso # (Auto) 0.0 Neutrophils % (Manual) 90 H Lymphocytes % (Manual) 7 L Monocytes % (Manual) 3 Platelet Estimate Normal RBC Morphology Normal Sodium 139 Potassium 4.1 Chloride 99 Carbon Dioxide 33 H Anion Gap 11 BUN 15 Creatinine 0.6 L Est GFR ( Amer) > 60 Est GFR (Non-Af Amer) > 60 POC Glucose (mg/dL) 127 H Random Glucose 256 H Calcium 8.7 Phosphorus 2.5 Magnesium 1.9 Total Bilirubin 0.3 AST 66 H D ALT 152 H D Alkaline Phosphatase 66 Total Protein 6.0 L Albumin 3.1 L Globulin 2.9 Albumin/Globulin Ratio 1.1 Assessment & Plan (1) COPD exacerbation Status: Acute (2) Dyspnea Status: Acute (3) Methadone dependence Status: Acute
[2018-03-01] MEDS: guaiFENesin 600 mg ER Tab PO SCH (17:15)
[2018-03-01] MEDS: Azithromycin 500 MG in Sodium Chloride 0.9% 250 ML IVPB SCH (19:06)
[2018-03-01] MEDS: Acetylcysteine 20% Inhal Soln (4ml) INH SCH (20:03)
[2018-03-01] MEDS: Fluticasone-Salmeterol 500-50mcg Diskus INH SCH (20:06)
[2018-03-02] MEDS: MethylPREDNISolone 40 mg Vial IVP SCH ×3 (05:21→21:45)
[2018-03-02] MEDS: Albuterol-Ipratrop 3 mg / 0.5 (3 ml) UD INH SCH ×4 (05:28→19:08)
[2018-03-02] MEDS: Acetylcysteine 20% Inhal Soln (4ml) INH SCH ×4 (05:29→19:09)
[2018-03-02] MEDS ORDERED: Theophylline 200mg ER 24 hrs Cap PO SCH (10:00)
[2018-03-02] MEDS: Tiotropium 18 mcg Cap For Inhalation INH SCH (10:22)
[2018-03-02] MEDS: Fluticasone-Salmeterol 500-50mcg Diskus INH SCH ×2 (10:22→19:09)
[2018-03-02] MEDS: guaiFENesin 600 mg ER Tab PO SCH ×2 (10:55→18:07)
[2018-03-02] MEDS: Enoxaparin 40 mg Syringe SC SCH (10:56)
[2018-03-02] MEDS: Saccharomyces Boulardi 250 mg Cap PO SCH (11:01)
[2018-03-02] MEDS: Aluminum Hydroxide/Magnesium Hydroxide Susp (30 mL) PO PRN (12:35)
--- NOTE | 2018-03-02 14:23 | CP.PCM.PN ---
Subjective - Date & Time of Evaluation Date of Evaluation: 03/02/18 Time of Evaluation: 10:00 - Subjective Subjective: clinically same Objective - Vital Signs/Intake and Output Vital Signs (last 24 hours): Temp Pulse Resp BP Pulse Ox 98.0 F 59 L 20 110/58 L 96 03/02/18 08:21 03/02/18 08:21 03/02/18 08:21 03/02/18 08:21 03/02/18 08:21 Intake and Output: 03/02/18 03/02/18 06:59 18:59 Intake Total 610 Balance 610 - Medications Medications: Current Medications Acetylcysteine (Acetylcysteine 20%) 4 ml INH RQ6 [facility] Last Admin: 03/02/18 13:22 Dose: 4 ml Al Hydrox/Mg Hydrox/Simethicone (Maalox 30 Ml) 30 ml PO TID PRN PRN Reason: Indigestion / Heartburn Last Admin: 03/02/18 12:35 Dose: 30 ml Albuterol Sulfate (Albuterol 0.083% Inhal Maureen (2.5 Mg/3 Ml) Ud) 2.5 mg IH Q2 PRN PRN Reason: SOB Albuterol/Ipratropium (Duoneb 3 Mg/0.5 Mg (3 Ml) Ud) 3 ml INH RQ6 [facility] Last Admin: 03/02/18 13:22 Dose: 3 ml Enoxaparin Sodium (Lovenox) 40 mg SC DAILY [facility] Last Admin: 03/02/18 10:56 Dose: 40 mg Guaifenesin (Mucinex La) 600 mg PO BID [facility] Last Admin: 03/02/18 10:55 Dose: 600 mg Hydroxyzine HCl (Atarax) 25 mg PO BID PRN PRN Reason: Anxiety Azithromycin 500 mg/ Sodium (Chloride) 250 mls @ 250 mls/hr IVPB DAILY@1700 NITHIN PRN Reason: Protocol Last Admin: 03/01/18 19:06 Dose: 250 mls/hr Ibuprofen (Motrin Tab) 600 mg PO Q6 PRN PRN Reason: Pain, moderate (4-7) Loperamide HCl (Imodium) 2 mg PO Q8 PRN PRN Reason: Diarrhea Lorazepam (Ativan) 1 mg PO Q6 PRN PRN Reason: Symptoms of alcohol withdrawl Last Admin: 03/01/18 17:14 Dose: 1 mg Methadone HCl (Methadone) 20 mg PO DAILY [facility] Last Admin: 03/02/18 10:55 Dose: 20 mg Methylprednisolone (Solu-Medrol) 40 mg IVP Q8 [facility] Last Admin: 03/02/18 05:21 Dose: 40 mg Montelukast Sodium (Singulair) 10 mg PO [facility] Last Admin: 03/01/18 21:40 Dose: 10 mg Ondansetron HCl (Zofran Tab) 4 mg PO Q8 PRN PRN Reason: Nausea/Vomiting Pseudoephedrine HCl (Sudafed Tab) 60 mg PO QID PRN PRN Reason: Nasal/Sinus Congestion Quetiapine Fumarate (Seroquel) 50 mg PO [facility] Last Admin: 03/01/18 21:40 Dose: 50 mg Roflumilast (Daliresp) 500 mcg PO DAILY [facility] Last Admin: 03/02/18 10:55 Dose: 500 mcg Saccharomyces Boulardii (Florastor) 250 mg PO DAILY [facility] Last Admin: 03/02/18 11:01 Dose: 250 mg Fluticasone/Salmeterol (Advair Diskus 500/50) 1 puff INH RQ12 [facility] Last Admin: 03/02/18 10:22 Dose: 1 puff Theophylline (Miguel-24) 200 mg PO DAILY [facility] Tiotropium [place] (Spiriva) 18 mcg INH RQ24 [facility] Last Admin: 03/02/18 10:22 Dose: 18 mcg Trazodone HCl (Desyrel) 100 mg PO [facility] Last Admin: 03/01/18 21:40 Dose: 100 mg - Labs Labs: 03/01/18 13:58 03/01/18 13:58 PT 11.0 SECONDS (9.7-12.2) 02/27/18 10:16 INR 1.0 02/27/18 10:16 APTT 38 SECONDS (21-34) H 02/27/18 10:16 - Constitutional Appears: Well - Head Exam Head Exam: ATRAUMATIC, NORMAL INSPECTION, NORMOCEPHALIC - Eye Exam Eye Exam: EOMI, Normal appearance, PERRL Pupil Exam: NORMAL ACCOMODATION, PERRL - ENT Exam ENT Exam: Mucous Membranes Moist, Normal Exam - Neck Exam Neck Exam: Full ROM, Normal Inspection. absent: Lymphadenopathy - Respiratory Exam Respiratory Exam: Decreased Breath Sounds - Cardiovascular Exam Cardiovascular Exam: REGULAR RHYTHM, +S1, +S2 - GI/Abdominal Exam GI & Abdominal Exam: Soft, Diminished Bowel Sounds - Rectal Exam Rectal Exam: Deferred
[2018-03-02] MEDS: Azithromycin 500 MG in Sodium Chloride 0.9% 250 ML IVPB SCH (18:07)
[2018-03-03] MEDS: Albuterol-Ipratrop 3 mg / 0.5 (3 ml) UD INH SCH ×4 (01:18→19:21)
[2018-03-03] MEDS: Acetylcysteine 20% Inhal Soln (4ml) INH SCH ×4 (01:18→19:21)
[2018-03-03] MEDS: MethylPREDNISolone 40 mg Vial IVP SCH ×3 (05:30→22:51)
--- NOTE | 2018-03-03 07:19 | CP.PCM.PN ---
Subjective - Date & Time of Evaluation Date of Evaluation: 03/03/18 Time of Evaluation: 07:19 - Subjective Subjective: PGY2 Medicine Note for Dr. Kavya Rico Patient seen and examined at bedside this morning. No acute events overnight. Patient's breathing much improved but still feels tight today. Patient feels like she is improving and is hopeful to go home soon. ROS otherwise unremarkable. Objective - Vital Signs/Intake and Output Vital Signs (last 24 hours): Temp Pulse Resp BP Pulse Ox 97.9 F 89 18 112/63 98 03/03/18 06:00 03/03/18 06:00 03/03/18 06:00 03/03/18 06:00 03/03/18 06:00 Intake and Output: 03/03/18 03/03/18 06:59 18:59 Intake Total 650 Balance 650 - Medications Medications: Current Medications Acetylcysteine (Acetylcysteine 20%) 4 ml INH RQ6 [facility] Last Admin: 03/03/18 01:18 Dose: Not Given Al Hydrox/Mg Hydrox/Simethicone (Maalox 30 Ml) 30 ml PO TID PRN PRN Reason: Indigestion / Heartburn Last Admin: 03/02/18 12:35 Dose: 30 ml Albuterol Sulfate (Albuterol 0.083% Inhal Maureen (2.5 Mg/3 Ml) Ud) 2.5 mg IH Q2 PRN PRN Reason: SOB Albuterol/Ipratropium (Duoneb 3 Mg/0.5 Mg (3 Ml) Ud) 3 ml INH RQ6 [facility] Last Admin: 03/03/18 01:18 Dose: Not Given Enoxaparin Sodium (Lovenox) 40 mg SC DAILY [facility] Last Admin: 03/02/18 10:56 Dose: 40 mg Guaifenesin (Mucinex La) 600 mg PO BID [facility] Last Admin: 03/02/18 18:07 Dose: 600 mg Hydroxyzine HCl (Atarax) 25 mg PO BID PRN PRN Reason: Anxiety Azithromycin 500 mg/ Sodium (Chloride) 250 mls @ 167 mls/hr IVPB Q24H [facility] PRN Reason: Protocol Stop: 03/05/18 17:01 Ibuprofen (Motrin Tab) 600 mg PO Q6 PRN PRN Reason: Pain, moderate (4-7) Loperamide HCl (Imodium) 2 mg PO Q8 PRN PRN Reason: Diarrhea Lorazepam (Ativan) 1 mg PO Q6 PRN PRN Reason: Symptoms of alcohol withdrawl Last Admin: 03/01/18 17:14 Dose: 1 mg Methadone HCl (Methadone) 20 mg PO DAILY [facility] Last Admin: 03/02/18 10:55 Dose: 20 mg Methylprednisolone (Solu-Medrol) 40 mg IVP Q8 [facility] Last Admin: 03/03/18 05:30 Dose: 40 mg Montelukast Sodium (Singulair) 10 mg PO [facility] Last Admin: 03/02/18 21:45 Dose: 10 mg Ondansetron HCl (Zofran Tab) 4 mg PO Q8 PRN PRN Reason: Nausea/Vomiting Pseudoephedrine HCl (Sudafed Tab) 60 mg PO QID PRN PRN Reason: Nasal/Sinus Congestion Quetiapine Fumarate (Seroquel) 50 mg PO [facility] Last Admin: 03/02/18 21:45 Dose: 50 mg Roflumilast (Daliresp) 500 mcg PO DAILY [facility] Last Admin: 03/02/18 10:55 Dose: 500 mcg Saccharomyces Boulardii (Florastor) 250 mg PO DAILY [facility] Last Admin: 03/02/18 11:01 Dose: 250 mg Fluticasone/Salmeterol (Advair Diskus 500/50) 1 puff INH RQ12 [facility] Last Admin: 03/02/18 19:09 Dose: 1 puff Theophylline (Miguel-24) 300 mg PO DAILY [facility] Tiotropium [place] (Spiriva) 18 mcg INH RQ24 [facility] Last Admin: 03/02/18 10:22 Dose: 18 mcg Trazodone HCl (Desyrel) 100 mg PO [facility] Last Admin: 03/02/18 21:45 Dose: 100 mg - Labs Labs: 03/01/18 13:58 03/01/18 13:58 PT 11.0 SECONDS (9.7-12.2) 02/27/18 10:16 INR 1.0 02/27/18 10:16 APTT 38 SECONDS (21-34) H 02/27/18 10:16 - Constitutional Appears: Non-toxic, No Acute Distress - Head Exam Head Exam: ATRAUMATIC, NORMOCEPHALIC - Eye Exam Eye Exam: EOMI (left eye). absent: Normal appearance (baseline R prosthesis) - ENT Exam ENT Exam: Mucous Membranes Moist - Respiratory Exam Respiratory Exam: Decreased Breath Sounds, Wheezes (mild, improving - ), NORMAL BREATHING PATTERN. absent: Respiratory Distress - Cardiovascular Exam Cardiovascular Exam: REGULAR RHYTHM, +S1, +S2 - GI/Abdominal Exam GI & Abdominal Exam: Soft, Normal Bowel Sounds. absent: Distended, Firm, Guarding, Rigid, Tenderness - Extremities Exam Extremities Exam: absent: Calf Tenderness, Pedal Edema - Neurological Exam Neurological Exam: Alert, Awake, Oriented x3 - Psychiatric Exam Psychiatric exam: Normal Affect, Normal Mood - Skin Skin Exam: Dry, Warm Assessment and Plan - Assessment and Plan (Free Text) Plan: COPD exacerbation - Pulm consulted, Dr. Garza - CXR 02/27: Hyperinflation with flattened diaphragms consistent with COPD or emphysema. - Pt was afebrile and had normal WBC count on admission - Continue Duoneb, Solumedrol 40 mg IVP q 8, Montelukast, Advair Diskus, Guaifenesin 600mg bid, Theophylline 300mg PO daily - Azithro and Cipro - Florastor 250mg daily - NC prn to maintain O2>92% Abdominal Pain - resolved - Abd/Pelvis 02/28: No acute pathology. - continue to monitor HTN - Currently normal BP. Will continue to monitor Anxiety - Continue home medications Seroquel and Trazadone - Psych, Dr. Gant is consulted * Pseudoephedrine 60mg PO QID prn * Ativan 1mg PO q6h prn * Loperamide 2mg PO q8h prn * Atarax 25mg PO BID prn Heroin abuse - Pt is counselled on the adverse risks of heroin abuse and recommend cessation. - Psych is consulted and pending further recs - Patient given 5mg of Methadone 03/01/18; Methadone 20mg once 02/28/18 Prophylaxis - SCDs - Lovenox - Florastor 250mg PO daily - Zofran 4mg PO q8h prn All orders and management per Dr. Kavya Corbett Sang PGY2
[2018-03-03 08:35] VITALS: RESP 20
[2018-03-03] MEDS ORDERED: Theophylline 200mg ER 24 hrs Cap PO SCH (10:00)
[2018-03-03] MEDS: Fluticasone-Salmeterol 500-50mcg Diskus INH SCH ×2 (10:21→19:22)
[2018-03-03] MEDS: Tiotropium 18 mcg Cap For Inhalation INH SCH (10:22)
[2018-03-03] MEDS: Enoxaparin 40 mg Syringe SC SCH (10:30)
[2018-03-03] MEDS: Saccharomyces Boulardi 250 mg Cap PO SCH (10:31)
[2018-03-03] MEDS: guaiFENesin 600 mg ER Tab PO SCH ×2 (10:32→22:58)
[2018-03-03] MEDS: Theophylline 300mg ER 24 hrs Cap PO SCH (10:34)
--- NOTE | 2018-03-03 16:49 | CP.PCM.PN ---
Subjective - Date & Time of Evaluation Date of Evaluation: 03/03/18 Time of Evaluation: 10:40 - Subjective Subjective: clinically same Objective - Vital Signs/Intake and Output Vital Signs (last 24 hours): Temp Pulse Resp BP Pulse Ox 97.9 F 69 20 112/65 96 03/03/18 15:47 03/03/18 15:47 03/03/18 15:47 03/03/18 15:47 03/03/18 15:47 Intake and Output: 03/03/18 03/03/18 06:59 18:59 Intake Total 650 300 Balance 650 300 - Medications Medications: Current Medications Acetylcysteine (Acetylcysteine 20%) 4 ml INH RQ6 [facility] Last Admin: 03/03/18 13:39 Dose: Not Given Al Hydrox/Mg Hydrox/Simethicone (Maalox 30 Ml) 30 ml PO TID PRN PRN Reason: Indigestion / Heartburn Last Admin: 03/02/18 12:35 Dose: 30 ml Albuterol Sulfate (Albuterol 0.083% Inhal Maureen (2.5 Mg/3 Ml) Ud) 2.5 mg IH Q2 PRN PRN Reason: SOB Albuterol/Ipratropium (Duoneb 3 Mg/0.5 Mg (3 Ml) Ud) 3 ml INH RQ6 [facility] Last Admin: 03/03/18 13:41 Dose: 3 ml Enoxaparin Sodium (Lovenox) 40 mg SC DAILY [facility] Last Admin: 03/03/18 10:30 Dose: 40 mg Guaifenesin (Mucinex La) 600 mg PO BID [facility] Last Admin: 03/03/18 10:32 Dose: 600 mg Hydroxyzine HCl (Atarax) 25 mg PO BID PRN PRN Reason: Anxiety Azithromycin 500 mg/ Sodium (Chloride) 250 mls @ 167 mls/hr IVPB Q24H [facility] PRN Reason: Protocol Stop: 03/05/18 17:01 Ibuprofen (Motrin Tab) 600 mg PO Q6 PRN PRN Reason: Pain, moderate (4-7) Loperamide HCl (Imodium) 2 mg PO Q8 PRN PRN Reason: Diarrhea Lorazepam (Ativan) 1 mg PO Q6 PRN PRN Reason: Symptoms of alcohol withdrawl Last Admin: 03/01/18 17:14 Dose: 1 mg Methadone HCl (Methadone) 20 mg PO DAILY [facility] Last Admin: 03/03/18 10:31 Dose: 20 mg Methylprednisolone (Solu-Medrol) 40 mg IVP Q8 [facility] Last Admin: 03/03/18 14:11 Dose: 40 mg Montelukast Sodium (Singulair) 10 mg PO [facility] Last Admin: 03/02/18 21:45 Dose: 10 mg Ondansetron HCl (Zofran Tab) 4 mg PO Q8 PRN PRN Reason: Nausea/Vomiting Pseudoephedrine HCl (Sudafed Tab) 60 mg PO QID PRN PRN Reason: Nasal/Sinus Congestion Quetiapine Fumarate (Seroquel) 50 mg PO [facility] Last Admin: 03/02/18 21:45 Dose: 50 mg Roflumilast (Daliresp) 500 mcg PO DAILY [facility] Last Admin: 03/03/18 10:34 Dose: 500 mcg Saccharomyces Boulardii (Florastor) 250 mg PO DAILY [facility] Last Admin: 03/03/18 10:31 Dose: 250 mg Fluticasone/Salmeterol (Advair Diskus 500/50) 1 puff INH RQ12 [facility] Last Admin: 03/03/18 10:21 Dose: 1 puff Theophylline (Miguel-24) 300 mg PO DAILY [facility] Last Admin: 03/03/18 10:34 Dose: 300 mg Tiotropium [place] (Spiriva) 18 mcg INH RQ24 [facility] Last Admin: 03/03/18 10:22 Dose: 18 mcg Trazodone HCl (Desyrel) 100 mg PO [facility] Last Admin: 03/02/18 21:45 Dose: 100 mg - Labs Labs: 03/01/18 13:58 03/01/18 13:58 PT 11.0 SECONDS (9.7-12.2) 02/27/18 10:16 INR 1.0 02/27/18 10:16 APTT 38 SECONDS (21-34) H 02/27/18 10:16 - Constitutional Appears: Well - Head Exam Head Exam: ATRAUMATIC, NORMAL INSPECTION, NORMOCEPHALIC - Eye Exam Eye Exam: EOMI, Normal appearance, PERRL Pupil Exam: NORMAL ACCOMODATION, PERRL - ENT Exam ENT Exam: Mucous Membranes Moist, Normal Exam - Neck Exam Neck Exam: Full ROM, Normal Inspection. absent: Lymphadenopathy - Respiratory Exam Respiratory Exam: Decreased Breath Sounds - Cardiovascular Exam Cardiovascular Exam: REGULAR RHYTHM, +S1, +S2 - GI/Abdominal Exam GI & Abdominal Exam: Soft, Diminished Bowel Sounds - Rectal Exam Rectal Exam: Deferred Assessment and Plan - Assessment and Plan (Free Text) Plan: COPD exacerbation - Pulm consulted, Dr. Garza - CXR 02/27: Hyperinflation with flattened diaphragms consistent with COPD or emphysema. - Pt was afebrile and had normal WBC count on admission - Continue Duoneb, Solumedrol 40 mg IVP q 8, Montelukast, Advair Diskus, Guaifenesin 600mg bid, Theophylline 300mg PO daily - Azithro and Cipro - Florastor 250mg daily - NC prn to maintain O2>92% Abdominal Pain - resolved - Abd/Pelvis 02/28: No acute pathology. - continue to monitor HTN - Currently normal BP. Will continue to monitor Anxiety - Continue home medications Seroquel and Trazadone - Psych, Dr. Gant is consulted * Pseudoephedrine 60mg PO QID prn * Ativan 1mg PO q6h prn * Loperamide 2mg PO q8h prn * Atarax 25mg PO BID prn Heroin abuse - Pt is counselled on the adverse risks of heroin abuse and recommend cessation. - Psych is consulted and pending further recs - Patient given 5mg of Methadone 03/01/18; Methadone 20mg once 02/28/18 Prophylaxis - SCDs - Lovenox - Florastor 250mg PO daily - Zofran 4mg PO q8h prn
[2018-03-03] MEDS: Azithromycin 500 MG in Sodium Chloride 0.9% 250 ML IVPB SCH (19:04)
[2018-03-04] MEDS: Acetylcysteine 20% Inhal Soln (4ml) INH SCH ×4 (01:32→19:31)
[2018-03-04] MEDS: Albuterol-Ipratrop 3 mg / 0.5 (3 ml) UD INH SCH ×4 (01:32→19:28)
[2018-03-04] MEDS: MethylPREDNISolone 40 mg Vial IVP SCH ×3 (05:38→21:20)
[2018-03-04] MEDS: Tiotropium 18 mcg Cap For Inhalation INH SCH (07:35)
[2018-03-04] MEDS: Fluticasone-Salmeterol 500-50mcg Diskus INH SCH ×2 (07:51→19:28)
--- NOTE | 2018-03-04 09:34 | CP.PCM.PN ---
<Edgar Diana - Last Filed: 03/04/18 15:22> Subjective - Date & Time of Evaluation Date of Evaluation: 03/04/18 Time of Evaluation: 09:33 - Subjective Subjective: PGY2 Medicine Note for Dr. Kavya Rico Patient seen and examined at bedside this morning. No acute events overnight. Patient reports breathing has improved since admission, but is need of home O2 because she is out. She states she has been up walking to the bathroom without dyspnea. Tolerating diet/voiding without difficulty. Objective - Vital Signs/Intake and Output Vital Signs (last 24 hours): Temp Pulse Resp BP Pulse Ox 98.1 F 53 L 20 113/62 97 03/04/18 07:00 03/04/18 08:25 03/04/18 07:00 03/04/18 07:00 03/04/18 07:00 Intake and Output: 03/04/18 03/04/18 06:59 18:59 Intake Total 620 Output Total 404 Balance 216 - Medications Medications: Current Medications Acetylcysteine (Acetylcysteine 20%) 4 ml INH RQ6 [facility] Last Admin: 03/04/18 07:35 Dose: Not Given Al Hydrox/Mg Hydrox/Simethicone (Maalox 30 Ml) 30 ml PO TID PRN PRN Reason: Indigestion / Heartburn Last Admin: 03/02/18 12:35 Dose: 30 ml Albuterol Sulfate (Albuterol 0.083% Inhal Maureen (2.5 Mg/3 Ml) Ud) 2.5 mg IH Q2 PRN PRN Reason: SOB Albuterol/Ipratropium (Duoneb 3 Mg/0.5 Mg (3 Ml) Ud) 3 ml INH RQ6 [facility] Last Admin: 03/04/18 07:35 Dose: 3 ml Enoxaparin Sodium (Lovenox) 40 mg SC DAILY [facility] Last Admin: 03/03/18 10:30 Dose: 40 mg Guaifenesin (Mucinex La) 600 mg PO BID [facility] Last Admin: 03/03/18 22:58 Dose: 600 mg Hydroxyzine HCl (Atarax) 25 mg PO BID PRN PRN Reason: Anxiety Azithromycin 500 mg/ Sodium (Chloride) 250 mls @ 167 mls/hr IVPB Q24H [facility] PRN Reason: Protocol Stop: 03/05/18 17:01 Last Admin: 03/03/18 19:04 Dose: 167 mls/hr Ibuprofen (Motrin Tab) 600 mg PO Q6 PRN PRN Reason: Pain, moderate (4-7) Loperamide HCl (Imodium) 2 mg PO Q8 PRN PRN Reason: Diarrhea Lorazepam (Ativan) 1 mg PO Q6 PRN PRN Reason: Symptoms of alcohol withdrawl Last Admin: 03/01/18 17:14 Dose: 1 mg Methadone HCl (Methadone) 20 mg PO DAILY [facility] Last Admin: 03/03/18 10:31 Dose: 20 mg Methylprednisolone (Solu-Medrol) 40 mg IVP Q8 [facility] Last Admin: 03/04/18 05:38 Dose: 40 mg Montelukast Sodium (Singulair) 10 mg PO [facility] Last Admin: 03/03/18 22:51 Dose: 10 mg Ondansetron HCl (Zofran Tab) 4 mg PO Q8 PRN PRN Reason: Nausea/Vomiting Pseudoephedrine HCl (Sudafed Tab) 60 mg PO QID PRN PRN Reason: Nasal/Sinus Congestion Last Admin: 03/03/18 23:08 Dose: 60 mg Quetiapine Fumarate (Seroquel) 50 mg PO [facility] Last Admin: 03/03/18 22:57 Dose: 50 mg Roflumilast (Daliresp) 500 mcg PO DAILY [facility] Last Admin: 03/03/18 10:34 Dose: 500 mcg Saccharomyces Boulardii (Florastor) 250 mg PO DAILY [facility] Last Admin: 03/03/18 10:31 Dose: 250 mg Fluticasone/Salmeterol (Advair Diskus 500/50) 1 puff INH RQ12 [facility] Last Admin: 03/04/18 07:51 Dose: 1 puff Theophylline (Miguel-24) 300 mg PO DAILY [facility] Last Admin: 03/03/18 10:34 Dose: 300 mg Tiotropium [place] (Spiriva) 18 mcg INH RQ24 [facility] Last Admin: 03/04/18 07:35 Dose: 18 mcg Trazodone HCl (Desyrel) 100 mg PO [facility] Last Admin: 03/03/18 22:51 Dose: 100 mg - Labs Labs: 03/01/18 13:58 03/01/18 13:58 PT 11.0 SECONDS (9.7-12.2) 02/27/18 10:16 INR 1.0 02/27/18 10:16 APTT 38 SECONDS (21-34) H 02/27/18 10:16 - Additional Findings Additional findings: - Constitutional Appears: Non-toxic, No Acute Distress - Head Exam Head Exam: ATRAUMATIC, NORMOCEPHALIC - Eye Exam Eye Exam: EOMI (left eye). absent: Normal appearance (baseline R prosthesis) - ENT Exam ENT Exam: Mucous Membranes Moist - Respiratory Exam Respiratory Exam: Decreased Breath Sounds, Wheezes (mild, improving), NORMAL BREATHING PATTERN. absent: Respiratory Distress - Cardiovascular Exam Cardiovascular Exam: REGULAR RHYTHM, +S1, +S2 - GI/Abdominal Exam GI & Abdominal Exam: Soft, Normal Bowel Sounds. absent: Distended, Firm, Guarding, Rigid, Tenderness - Extremities Exam Extremities Exam: absent: Calf Tenderness, Pedal Edema - Neurological Exam Neurological Exam: Alert, Awake, Oriented x3 - Psychiatric Exam Psychiatric exam: Normal Affect, Normal Mood - Skin Skin Exam: Dry, Warm Assessment and Plan - Assessment and Plan (Free Text) Plan: COPD exacerbation - Pulm consulted, Dr. Garza - CXR 02/27: Hyperinflation with flattened diaphragms consistent with COPD or emphysema. - Pt was afebrile and had normal WBC count on admission - Continue Duoneb, Solumedrol 40 mg IVP q 8, Montelukast, Advair Diskus, Guaifenesin 600mg bid, Theophylline 300mg PO daily - Azithro and Cipro - Florastor 250mg daily - NC prn to maintain O2>92% Pt on home O2: states she currently has no oxygen at her house. PT eval ordered. Abdominal Pain - resolved - Abd/Pelvis 02/28: No acute pathology. - continue to monitor HTN - Currently normal BP. Will continue to monitor Anxiety - Continue home medications Seroquel and Trazadone - Psych, Dr. Gant is consulted * Pseudoephedrine 60mg PO QID prn * Ativan 1mg PO q6h prn * Loperamide 2mg PO q8h prn * Atarax 25mg PO BID prn Heroin abuse - Pt is counselled on the adverse risks of heroin abuse and recommend cessation. - Psych is consulted and pending further recs - Patient given 5mg of Methadone 03/01/18; Methadone 20mg once 02/28/18 Prophylaxis - SCDs - Lovenox - Florastor 250mg PO daily - Zofran 4mg PO q8h prn Disposition: Pt on home O2: states she currently has no oxygen at her house. tutoring manager working on procuring new home O2. Pt aware she cannot be safely discharged without home O2. PT codeyal ordered. All orders and management per Dr. Kavya Rico <Augustine Rico - Last Filed: 03/05/18 08:38> Objective - Vital Signs/Intake and Output Vital Signs (last 24 hours): Temp Pulse Resp BP Pulse Ox 98.3 F 53 L 20 110/65 97 03/05/18 07:00 03/05/18 08:10 03/05/18 07:00 03/05/18 07:00 03/05/18 07:00 Intake and Output: 03/05/18 03/05/18 06:59 18:59 Intake Total 240 Balance 240 - Medications Medications: Current Medications Acetylcysteine (Acetylcysteine 20%) 4 ml INH RQ6 [facility] Last Admin: 03/05/18 07:22 Dose: Not Given Al Hydrox/Mg Hydrox/Simethicone (Maalox 30 Ml) 30 ml PO TID PRN PRN Reason: Indigestion / Heartburn Last Admin: 03/05/18 04:24 Dose: 30 ml Albuterol/Ipratropium (Duoneb 3 Mg/0.5 Mg (3 Ml) Ud) 3 ml INH RQ6 [facility] Last Admin: 03/05/18 07:22 Dose: 3 ml Enoxaparin Sodium (Lovenox) 40 mg SC DAILY [facility] Last Admin: 03/04/18 09:48 Dose: Not Given Guaifenesin (Mucinex La) 600 mg PO BID [facility] Last Admin: 03/04/18 17:44 Dose: 600 mg Hydroxyzine HCl (Atarax) 25 mg PO BID PRN PRN Reason: Anxiety Azithromycin 500 mg/ Sodium (Chloride) 250 mls @ 167 mls/hr IVPB Q24H [facility] PRN Reason: Protocol Stop: 03/05/18 17:01 Last Admin: 03/04/18 17:44 Dose: 167 mls/hr Ibuprofen (Motrin Tab) 600 mg PO Q6 PRN PRN Reason: Pain, moderate (4-7) Loperamide HCl (Imodium) 2 mg PO Q8 PRN PRN Reason: Diarrhea Lorazepam (Ativan) 1 mg PO Q6 PRN PRN Reason: Symptoms of alcohol withdrawl Last Admin: 03/01/18 17:14 Dose: 1 mg Methadone HCl (Methadone) 20 mg PO DAILY [facility] Last Admin: 03/04/18 09:49 Dose: 20 mg Methylprednisolone (Solu-Medrol) 40 mg IVP Q8 [facility] Last Admin: 03/05/18 05:57 Dose: 40 mg Montelukast Sodium (Singulair) 10 mg PO HS [facility] Last Admin: 03/04/18 21:20 Dose: 10 mg Ondansetron HCl (Zofran Tab) 4 mg PO Q8 PRN PRN Reason: Nausea/Vomiting Pseudoephedrine HCl (Sudafed Tab) 60 mg PO QID PRN PRN Reason: Nasal/Sinus Congestion Last Admin: 03/03/18 23:08 Dose: 60 mg Quetiapine Fumarate (Seroquel) 50 mg PO [facility] Last Admin: 03/04/18 21:20 Dose: 50 mg Roflumilast (Daliresp) 500 mcg PO DAILY [facility] Last Admin: 03/04/18 09:49 Dose: 500 mcg Saccharomyces Boulardii (Florastor) 250 mg PO DAILY [facility] Last Admin: 03/04/18 09:49 Dose: 250 mg Fluticasone/Salmeterol (Advair Diskus 500/50) 1 puff INH RQ12 [facility] Last Admin: 03/04/18 19:28 Dose: 1 puff Theophylline (Miguel-24) 300 mg PO DAILY [facility] Last Admin: 03/04/18 09:49 Dose: 300 mg Tiotropium [place] (Spiriva) 18 mcg INH RQ24 [facility] Last Admin: 03/04/18 07:35 Dose: 18 mcg Trazodone HCl (Desyrel) 100 mg PO [facility] Last Admin: 03/04/18 21:20 Dose: 100 mg - Labs Labs: 03/04/18 11:29 03/04/18 11:29 PT 11.0 SECONDS (9.7-12.2) 02/27/18 10:16 INR 1.0 02/27/18 10:16 APTT 38 SECONDS (21-34) H 02/27/18 10:16 Attending/Attestation - Attestation I have personally seen and examined this patient.: Yes I have fully participated in the care of the patient.: Yes I have reviewed all pertinent clinical information, including history, physical exam and plan: Yes Notes (Text): 03/05/18 08:38 case seen and d.w staff and resident, concurred with finding and management..
[2018-03-04] MEDS: Enoxaparin 40 mg Syringe SC SCH (09:48)
[2018-03-04] MEDS: Saccharomyces Boulardi 250 mg Cap PO SCH (09:49)
[2018-03-04] MEDS: guaiFENesin 600 mg ER Tab PO SCH ×2 (09:49→17:44)
[2018-03-04] MEDS: Theophylline 300mg ER 24 hrs Cap PO SCH (09:49)
[2018-03-04 11:37] LABS: BASO % 0.2 % (0.0-2.0); EOS % 0.1 % (0.0-4.0); HEMOGLOBIN 13.8 g/dL (11.0-16.0); LYMPH # 0.4 K/uL (1.0-4.3); LYMPH % 5.5 % (20.0-40.0); MEAN CELL VOLUME 94.9 fL (81.0-99.0); MEAN CORPUSCULAR HEMOGLOBIN 32.6 pg (27.0-31.0); MEAN CORPUSCULAR HGB CONC 34.3 g/dL (33.0-37.0); MEAN PLATELET VOLUME 9.3 fL (7.2-11.7); MONO # 0.3 K/uL (0.0-0.8); NEUT # 5.7 K/uL (1.8-7.0); NEUT % 89.2 % (50.0-75.0); PLATELET COUNT 143 K/uL (130-400); RBC 4.24 Mil/uL (3.80-5.20); RED CELL DISTRIBUTION WIDTH 14.3 % (11.5-14.5); WHITE BLOOD COUNT 6.4 K/uL (4.8-10.8)
[2018-03-04 12:06] LABS: ALB/GLOB RATIO 1.2 (1.0-2.1); ALBUMIN 3.3 g/dL (3.5-5.0); ALT/SGPT 82 U/L (9-52); AST/SGOT 27 U/L (14-36); BLOOD UREA NITROGEN 20 mg/dL (7-17); GFR AFRICAN-AMERICAN > 60; GFR NON-AFRICAN AMERICAN > 60
[2018-03-04 12:10] LABS: LYMPHOCYTE 3 % (20-40); MONOCYTE 8 % (0-10); NEUTROPHIL 89 % (50-75); PLATELET ESTIMATE NORMAL (NORMAL); TOTAL CELLS COUNTED 100
[2018-03-04] MEDS: Azithromycin 500 MG in Sodium Chloride 0.9% 250 ML IVPB SCH (17:44)
--- NOTE | 2018-03-04 19:21 | CP.PCM.PN ---
Subjective - Date & Time of Evaluation Date of Evaluation: 03/04/18 Time of Evaluation: 09:40 - Subjective Subjective: clinically same Objective - Vital Signs/Intake and Output Vital Signs (last 24 hours): Temp Pulse Resp BP Pulse Ox 98.4 F 83 20 104/68 98 03/04/18 15:00 03/04/18 15:30 03/04/18 15:00 03/04/18 15:00 03/04/18 15:00 - Medications Medications: Current Medications Acetylcysteine (Acetylcysteine 20%) 4 ml INH RQ6 [facility] Last Admin: 03/04/18 13:35 Dose: Not Given Al Hydrox/Mg Hydrox/Simethicone (Maalox 30 Ml) 30 ml PO TID PRN PRN Reason: Indigestion / Heartburn Last Admin: 03/02/18 12:35 Dose: 30 ml Albuterol/Ipratropium (Duoneb 3 Mg/0.5 Mg (3 Ml) Ud) 3 ml INH RQ6 [facility] Last Admin: 03/04/18 13:36 Dose: 3 ml Enoxaparin Sodium (Lovenox) 40 mg SC DAILY [facility] Last Admin: 03/04/18 09:48 Dose: Not Given Guaifenesin (Mucinex La) 600 mg PO BID [facility] Last Admin: 03/04/18 17:44 Dose: 600 mg Hydroxyzine HCl (Atarax) 25 mg PO BID PRN PRN Reason: Anxiety Azithromycin 500 mg/ Sodium (Chloride) 250 mls @ 167 mls/hr IVPB Q24H [facility] PRN Reason: Protocol Stop: 03/05/18 17:01 Last Admin: 03/04/18 17:44 Dose: 167 mls/hr Ibuprofen (Motrin Tab) 600 mg PO Q6 PRN PRN Reason: Pain, moderate (4-7) Loperamide HCl (Imodium) 2 mg PO Q8 PRN PRN Reason: Diarrhea Lorazepam (Ativan) 1 mg PO Q6 PRN PRN Reason: Symptoms of alcohol withdrawl Last Admin: 03/01/18 17:14 Dose: 1 mg Methadone HCl (Methadone) 20 mg PO DAILY [facility] Last Admin: 03/04/18 09:49 Dose: 20 mg Methylprednisolone (Solu-Medrol) 40 mg IVP Q8 [facility] Last Admin: 03/04/18 13:16 Dose: 40 mg Montelukast Sodium (Singulair) [address] [facility] Last Admin: 03/03/18 22:51 Dose: 10 mg Ondansetron HCl (Zofran Tab) 4 mg PO Q8 PRN PRN Reason: Nausea/Vomiting Pseudoephedrine HCl (Sudafed Tab) 60 mg PO QID PRN PRN Reason: Nasal/Sinus Congestion Last Admin: 03/03/18 23:08 Dose: 60 mg Quetiapine Fumarate (Seroquel) 50 mg PO [facility] Last Admin: 03/03/18 22:57 Dose: 50 mg Roflumilast (Daliresp) 500 mcg PO DAILY [facility] Last Admin: 03/04/18 09:49 Dose: 500 mcg Saccharomyces Boulardii (Florastor) 250 mg PO DAILY [facility] Last Admin: 03/04/18 09:49 Dose: 250 mg Fluticasone/Salmeterol (Advair Diskus 500/50) 1 puff INH RQ12 [facility] Last Admin: 03/04/18 07:51 Dose: 1 puff Theophylline (Miguel-24) 300 mg PO DAILY [facility] Last Admin: 03/04/18 09:49 Dose: 300 mg Tiotropium [place] (Spiriva) 18 mcg INH RQ24 [facility] Last Admin: 03/04/18 07:35 Dose: 18 mcg Trazodone HCl (Desyrel) [address] [facility] Last Admin: 03/03/18 22:51 Dose: 100 mg - Labs Labs: 03/04/18 11:29 03/04/18 11:29 PT 11.0 SECONDS (9.7-12.2) 02/27/18 10:16 INR 1.0 02/27/18 10:16 APTT 38 SECONDS (21-34) H 02/27/18 10:16 - Constitutional Appears: Well - Head Exam Head Exam: ATRAUMATIC, NORMAL INSPECTION, NORMOCEPHALIC - Eye Exam Eye Exam: EOMI, Normal appearance, PERRL Pupil Exam: NORMAL ACCOMODATION, PERRL - ENT Exam ENT Exam: Mucous Membranes Moist, Normal Exam - Neck Exam Neck Exam: Full ROM, Normal Inspection. absent: Lymphadenopathy - Respiratory Exam Respiratory Exam: Decreased Breath Sounds - Cardiovascular Exam Cardiovascular Exam: REGULAR RHYTHM, +S1, +S2 - GI/Abdominal Exam GI & Abdominal Exam: Soft, Diminished Bowel Sounds - Rectal Exam Rectal Exam: Deferred Assessment and Plan - Assessment and Plan (Free Text) Plan: OPD exacerbation - Pulm consulted, Dr. Garza - CXR 02/27: Hyperinflation with flattened diaphragms consistent with COPD or emphysema. - Pt was afebrile and had normal WBC count on admission - Continue Duoneb, Solumedrol 40 mg IVP q 8, Montelukast, Advair Diskus, Guaifenesin 600mg bid, Theophylline 300mg PO daily - Azithro and Cipro - Florastor 250mg daily - NC prn to maintain O2>92% Pt on home O2: states she currently has no oxygen at her house. PT eval ordered. Abdominal Pain - resolved - Abd/Pelvis 02/28: No acute pathology. - continue to monitor HTN - Currently normal BP. Will continue to monitor Anxiety - Continue home medications Seroquel and Trazadone - Psych, Dr. Gant is consulted * Pseudoephedrine 60mg PO QID prn * Ativan 1mg PO q6h prn * Loperamide 2mg PO q8h prn * Atarax 25mg PO BID prn Heroin abuse - Pt is counselled on the adverse risks of heroin abuse and recommend cessation. - Psych is consulted and pending further recs - Patient given 5mg of Methadone 03/01/18; Methadone 20mg once 02/28/18 Prophylaxis - SCDs - Lovenox - Florastor 250mg PO daily - Zofran 4mg PO q8h prn Disposition: Pt on home O2: states she currently has no oxygen at her house. program management manager working on procuring new home O2. Pt aware she cannot be safely discharged without home O2. PT eval ordered.
[2018-03-04] MEDS: Aluminum Hydroxide/Magnesium Hydroxide Susp (30 mL) PO PRN (21:25)
[2018-03-05] MEDS: Acetylcysteine 20% Inhal Soln (4ml) INH SCH ×4 (01:10→20:17)
[2018-03-05] MEDS: Albuterol-Ipratrop 3 mg / 0.5 (3 ml) UD INH SCH ×4 (01:11→20:16)
[2018-03-05] MEDS: Aluminum Hydroxide/Magnesium Hydroxide Susp (30 mL) PO PRN (04:24)
[2018-03-05] MEDS: MethylPREDNISolone 40 mg Vial IVP SCH ×3 (05:57→21:20)
[2018-03-05] MEDS: Saccharomyces Boulardi 250 mg Cap PO SCH (09:35)
[2018-03-05] MEDS: Theophylline 300mg ER 24 hrs Cap PO SCH (09:35)
[2018-03-05] MEDS: guaiFENesin 600 mg ER Tab PO SCH ×2 (09:35→17:34)
[2018-03-05] MEDS: Enoxaparin 40 mg Syringe SC SCH (09:36)
[2018-03-05] MEDS: Fluticasone-Salmeterol 500-50mcg Diskus INH SCH ×2 (10:32→20:18)
[2018-03-05] MEDS: Tiotropium 18 mcg Cap For Inhalation INH SCH (10:33)
[2018-03-05] MEDS: Azithromycin 500 MG in Sodium Chloride 0.9% 250 ML IVPB SCH (17:33)
--- NOTE | 2018-03-05 20:37 | CP.PCM.PN ---
Subjective - Date & Time of Evaluation Date of Evaluation: 03/05/18 Time of Evaluation: 09:40 - Subjective Subjective: clinically same Objective - Vital Signs/Intake and Output Vital Signs (last 24 hours): Temp Pulse Resp BP Pulse Ox 97.9 F 68 20 105/61 98 03/05/18 15:38 03/05/18 16:25 03/05/18 15:38 03/05/18 15:38 03/05/18 16:25 - Medications Medications: Current Medications Acetylcysteine (Acetylcysteine 20%) 4 ml INH RQ6 [facility] Last Admin: 03/05/18 20:17 Dose: Not Given Al Hydrox/Mg Hydrox/Simethicone (Maalox 30 Ml) 30 ml PO TID PRN PRN Reason: Indigestion / Heartburn Last Admin: 03/05/18 04:24 Dose: 30 ml Albuterol/Ipratropium (Duoneb 3 Mg/0.5 Mg (3 Ml) Ud) 3 ml INH RQ6 [facility] Last Admin: 03/05/18 20:16 Dose: 3 ml Enoxaparin Sodium (Lovenox) 40 mg SC DAILY [facility] Last Admin: 03/05/18 09:36 Dose: 40 mg Guaifenesin (Mucinex La) 600 mg PO BID [facility] Last Admin: 03/05/18 17:34 Dose: 600 mg Hydroxyzine HCl (Atarax) 25 mg PO BID PRN PRN Reason: Anxiety Ibuprofen (Motrin Tab) 600 mg PO Q6 PRN PRN Reason: Pain, moderate (4-7) Loperamide HCl (Imodium) 2 mg PO Q8 PRN PRN Reason: Diarrhea Lorazepam (Ativan) 1 mg PO Q6 PRN PRN Reason: Symptoms of alcohol withdrawl Last Admin: 03/01/18 17:14 Dose: 1 mg Methadone HCl (Methadone) 20 mg PO DAILY [facility] Last Admin: 03/05/18 09:35 Dose: 20 mg Methylprednisolone (Solu-Medrol) 40 mg IVP Q8 [facility] Last Admin: 03/05/18 13:56 Dose: 40 mg Montelukast Sodium (Singulair) 10 mg PO HS [facility] Last Admin: 03/04/18 21:20 Dose: 10 mg Ondansetron HCl (Zofran Tab) 4 mg PO Q8 PRN PRN Reason: Nausea/Vomiting Pseudoephedrine HCl (Sudafed Tab) 60 mg PO QID PRN PRN Reason: Nasal/Sinus Congestion Last Admin: 03/03/18 23:08 Dose: 60 mg Quetiapine Fumarate (Seroquel) 50 mg PO [facility] Last Admin: 03/04/18 21:20 Dose: 50 mg Roflumilast (Daliresp) 500 mcg PO DAILY [facility] Last Admin: 03/05/18 09:35 Dose: 500 mcg Saccharomyces Boulardii (Florastor) 250 mg PO DAILY [facility] Last Admin: 03/05/18 09:35 Dose: 250 mg Fluticasone/Salmeterol (Advair Diskus 500/50) 1 puff INH RQ12 [facility] Last Admin: 03/05/18 20:18 Dose: 1 puff Theophylline (Miguel-24) 300 mg PO DAILY [facility] Last Admin: 03/05/18 09:35 Dose: 300 mg Tiotropium [place] (Spiriva) 18 mcg INH RQ24 [facility] Last Admin: 03/05/18 10:33 Dose: 18 mcg Trazodone HCl (Desyrel) 100 mg PO [facility] Last Admin: 03/04/18 21:20 Dose: 100 mg - Labs Labs: 03/04/18 11:29 03/04/18 11:29 PT 11.0 SECONDS (9.7-12.2) 02/27/18 10:16 INR 1.0 02/27/18 10:16 APTT 38 SECONDS (21-34) H 02/27/18 10:16 - Constitutional Appears: Well - Head Exam Head Exam: ATRAUMATIC, NORMAL INSPECTION, NORMOCEPHALIC - Eye Exam Eye Exam: EOMI, Normal appearance, PERRL Pupil Exam: NORMAL ACCOMODATION, PERRL - ENT Exam ENT Exam: Mucous Membranes Moist, Normal Exam - Neck Exam Neck Exam: Full ROM, Normal Inspection. absent: Lymphadenopathy - Respiratory Exam Respiratory Exam: Decreased Breath Sounds - Cardiovascular Exam Cardiovascular Exam: REGULAR RHYTHM, +S1, +S2 - GI/Abdominal Exam GI & Abdominal Exam: Soft, Diminished Bowel Sounds - Rectal Exam Rectal Exam: Deferred Assessment and Plan - Assessment and Plan (Free Text) Plan: Unable to get oxygen by the psychologist social patient had still he Awaiting discharge upon receiving the oxygenation's patient claims that her oxygen company from [place] did not deliver the oxygen last with the supposed to deliver a Continue same Tapering steroid Patient is on home oxygen patient is on oxygen Continue bronchodilator Follow-up with the consultations
[2018-03-06] MEDS: Acetylcysteine 20% Inhal Soln (4ml) INH SCH ×4 (02:10→20:50)
[2018-03-06] MEDS: Albuterol-Ipratrop 3 mg / 0.5 (3 ml) UD INH SCH ×4 (02:10→20:51)
[2018-03-06] MEDS: MethylPREDNISolone 40 mg Vial IVP SCH ×3 (06:15→22:16)
[2018-03-06] MEDS: Enoxaparin 40 mg Syringe SC SCH (09:15)
[2018-03-06] MEDS: guaiFENesin 600 mg ER Tab PO SCH ×2 (09:15→17:41)
[2018-03-06] MEDS: Saccharomyces Boulardi 250 mg Cap PO SCH (09:15)
[2018-03-06] MEDS: Theophylline 300mg ER 24 hrs Cap PO SCH (09:16)
[2018-03-06] MEDS: Fluticasone-Salmeterol 500-50mcg Diskus INH SCH ×2 (10:43→20:51)
[2018-03-06] MEDS: Tiotropium 18 mcg Cap For Inhalation INH SCH (10:44)
--- NOTE | 2018-03-06 14:27 | CP.PCM.PN ---
Subjective - Date & Time of Evaluation Date of Evaluation: 03/13/18 Time of Evaluation: 09:40 - Subjective Subjective: clinically same Objective - Vital Signs/Intake and Output Vital Signs (last 24 hours): Temp Pulse Resp BP Pulse Ox 98.4 F 60 20 93/52 L 98 03/06/18 07:25 03/06/18 08:11 03/06/18 07:25 03/06/18 07:25 03/05/18 23:42 Intake and Output: 03/06/18 03/06/18 06:59 18:59 Intake Total 360 Balance 360 - Medications Medications: Current Medications Acetylcysteine (Acetylcysteine 20%) 4 ml INH RQ6 [facility] Last Admin: 03/06/18 13:32 Dose: Not Given Al Hydrox/Mg Hydrox/Simethicone (Maalox 30 Ml) 30 ml PO TID PRN PRN Reason: Indigestion / Heartburn Last Admin: 03/05/18 04:24 Dose: 30 ml Albuterol/Ipratropium (Duoneb 3 Mg/0.5 Mg (3 Ml) Ud) 3 ml INH RQ6 [facility] Last Admin: 03/06/18 13:33 Dose: 3 ml Enoxaparin Sodium (Lovenox) 40 mg SC DAILY [facility] Last Admin: 03/06/18 09:15 Dose: 40 mg Guaifenesin (Mucinex La) 600 mg PO BID [facility] Last Admin: 03/06/18 09:15 Dose: 600 mg Hydroxyzine HCl (Atarax) 25 mg PO BID PRN PRN Reason: Anxiety Ibuprofen (Motrin Tab) 600 mg PO Q6 PRN PRN Reason: Pain, moderate (4-7) Loperamide HCl (Imodium) 2 mg PO Q8 PRN PRN Reason: Diarrhea Lorazepam (Ativan) 1 mg PO Q6 PRN PRN Reason: Symptoms of alcohol withdrawl Last Admin: 03/01/18 17:14 Dose: 1 mg Methadone HCl (Methadone) 20 mg PO DAILY [facility] Last Admin: 03/06/18 09:14 Dose: 20 mg Methylprednisolone (Solu-Medrol) 40 mg IVP Q8 [facility] Last Admin: 03/06/18 13:45 Dose: 40 mg Montelukast Sodium (Singulair) 10 mg PO HS [facility] Last Admin: 03/05/18 21:20 Dose: 10 mg Ondansetron HCl (Zofran Tab) 4 mg PO Q8 PRN PRN Reason: Nausea/Vomiting Pseudoephedrine HCl (Sudafed Tab) 60 mg PO QID PRN PRN Reason: Nasal/Sinus Congestion Last Admin: 03/03/18 23:08 Dose: 60 mg Quetiapine Fumarate (Seroquel) 50 mg PO [facility] Last Admin: 03/05/18 21:20 Dose: 50 mg Roflumilast (Daliresp) 500 mcg PO DAILY [facility] Last Admin: 03/06/18 11:40 Dose: 500 mcg Saccharomyces Boulardii (Florastor) 250 mg PO DAILY [facility] Last Admin: 03/06/18 09:15 Dose: 250 mg Fluticasone/Salmeterol (Advair Diskus 500/50) 1 puff INH RQ12 [facility] Last Admin: 03/06/18 10:43 Dose: 1 puff Theophylline (Miguel-24) 300 mg PO DAILY [facility] Last Admin: 03/06/18 09:16 Dose: 300 mg Tiotropium [place] (Spiriva) 18 mcg INH RQ24 [facility] Last Admin: 03/06/18 10:44 Dose: 18 mcg Trazodone HCl (Desyrel) 100 mg PO [facility] Last Admin: 03/05/18 21:20 Dose: 100 mg - Labs Labs: 03/04/18 11:29 03/04/18 11:29 PT 11.0 SECONDS (9.7-12.2) 02/27/18 10:16 INR 1.0 02/27/18 10:16 APTT 38 SECONDS (21-34) H 02/27/18 10:16 - Constitutional Appears: Well - Head Exam Head Exam: ATRAUMATIC, NORMAL INSPECTION, NORMOCEPHALIC - Eye Exam Eye Exam: EOMI, Normal appearance, PERRL Pupil Exam: NORMAL ACCOMODATION, PERRL - ENT Exam ENT Exam: Mucous Membranes Moist, Normal Exam - Neck Exam Neck Exam: Full ROM, Normal Inspection. absent: Lymphadenopathy - Respiratory Exam Respiratory Exam: Decreased Breath Sounds - Cardiovascular Exam Cardiovascular Exam: REGULAR RHYTHM, +S1, +S2 - GI/Abdominal Exam GI & Abdominal Exam: Soft, Diminished Bowel Sounds - Rectal Exam Rectal Exam: Deferred
[2018-03-07] MEDS ORDERED: Sodium Chloride 0.9% 1,000 ML IV SCH (02:00)
[2018-03-07] MEDS: Acetylcysteine 20% Inhal Soln (4ml) INH SCH ×3 (02:38→13:18)
[2018-03-07] MEDS: Albuterol-Ipratrop 3 mg / 0.5 (3 ml) UD INH SCH ×3 (02:38→13:18)
[2018-03-07] MEDS: MethylPREDNISolone 40 mg Vial IVP SCH ×2 (05:09→14:21)
--- NOTE | 2018-03-07 07:40 | CP.PCM.PN ---
Subjective - Date & Time of Evaluation Date of Evaluation: 03/07/18 Time of Evaluation: 07:39 - Subjective Subjective: Internal Medicine Progress Note - Dr Kavya Rico Service Patient seen and examined at bedside. Per nursing, no acute events overnight. Patient is doing well, offers no complaints at this time. States that breathing is improving. Ambulating and tolerating diet. Denies headaches, dizziness, cp, palpiatations, abdominal pain, urinary symptoms, changes in bowel habits. Objective - Vital Signs/Intake and Output Vital Signs (last 24 hours): Temp Pulse Resp BP Pulse Ox 98.4 F 96 H 20 101/59 L 97 03/07/18 04:21 03/07/18 04:21 03/07/18 04:21 03/07/18 04:21 03/07/18 04:21 - Medications Medications: Current Medications Acetylcysteine (Acetylcysteine 20%) 4 ml INH RQ6 [facility] Last Admin: 03/07/18 02:38 Dose: Not Given Al Hydrox/Mg Hydrox/Simethicone (Maalox 30 Ml) 30 ml PO TID PRN PRN Reason: Indigestion / Heartburn Last Admin: 03/05/18 04:24 Dose: 30 ml Albuterol/Ipratropium (Duoneb 3 Mg/0.5 Mg (3 Ml) Ud) 3 ml INH RQ6 [facility] Last Admin: 03/07/18 02:38 Dose: 3 ml Enoxaparin Sodium (Lovenox) 40 mg SC DAILY [facility] Last Admin: 03/06/18 09:15 Dose: 40 mg Guaifenesin (Mucinex La) 600 mg PO BID [facility] Last Admin: 03/06/18 17:41 Dose: 600 mg Hydroxyzine HCl (Atarax) 25 mg PO BID PRN PRN Reason: Anxiety Sodium Chloride (Sodium Chloride 0.9%) 1,000 mls @ 100 mls/hr IV .Q10H [facility] Last Admin: 03/07/18 02:13 Dose: 100 mls/hr Ibuprofen (Motrin Tab) 600 mg PO Q6 PRN PRN Reason: Pain, moderate (4-7) Loperamide HCl (Imodium) 2 mg PO Q8 PRN PRN Reason: Diarrhea Lorazepam (Ativan) 1 mg PO Q6 PRN PRN Reason: Symptoms of alcohol withdrawl Last Admin: 03/01/18 17:14 Dose: 1 mg Methadone HCl (Methadone) 20 mg PO DAILY [facility] Last Admin: 03/06/18 09:14 Dose: 20 mg Methylprednisolone (Solu-Medrol) 40 mg IVP Q8 [facility] Last Admin: 03/07/18 05:09 Dose: 40 mg Montelukast Sodium (Singulair) 10 mg PO [facility] Last Admin: 03/06/18 22:16 Dose: 10 mg Ondansetron HCl (Zofran Tab) 4 mg PO Q8 PRN PRN Reason: Nausea/Vomiting Pseudoephedrine HCl (Sudafed Tab) 60 mg PO QID PRN PRN Reason: Nasal/Sinus Congestion Last Admin: 03/03/18 23:08 Dose: 60 mg Quetiapine Fumarate (Seroquel) 50 mg PO [facility] Last Admin: 03/06/18 22:16 Dose: 50 mg Roflumilast (Daliresp) 500 mcg PO DAILY [facility] Last Admin: 03/06/18 11:40 Dose: 500 mcg Saccharomyces Boulardii (Florastor) 250 mg PO DAILY [facility] Last Admin: 03/06/18 09:15 Dose: 250 mg Fluticasone/Salmeterol (Advair Diskus 500/50) 1 puff INH RQ12 [facility] Last Admin: 03/06/18 20:51 Dose: 1 puff Theophylline (Miguel-24) 300 mg PO DAILY [facility] Last Admin: 03/06/18 09:16 Dose: 300 mg Tiotropium [place] (Spiriva) 18 mcg INH RQ24 [facility] Last Admin: 03/06/18 10:44 Dose: 18 mcg Trazodone HCl (Desyrel) 100 mg PO [facility] Last Admin: 03/06/18 22:16 Dose: 100 mg - Labs Labs: 03/04/18 11:29 03/04/18 11:29 PT 11.0 SECONDS (9.7-12.2) 02/27/18 10:16 INR 1.0 02/27/18 10:16 APTT 38 SECONDS (21-34) H 02/27/18 10:16 - Additional Findings Additional findings: - Constitutional Appears: Non-toxic, No Acute Distress - Head Exam Head Exam: ATRAUMATIC, NORMOCEPHALIC - Eye Exam Eye Exam: EOMI (left eye). absent: Normal appearance (baseline R prosthesis) - ENT Exam ENT Exam: Mucous Membranes Moist - Respiratory Exam Respiratory Exam: Decreased Breath Sounds, Wheezes (mild, improving), NORMAL BREATHING PATTERN. absent: Respiratory Distress - Cardiovascular Exam Cardiovascular Exam: REGULAR RHYTHM, +S1, +S2 - GI/Abdominal Exam GI & Abdominal Exam: Soft, Normal Bowel Sounds. absent: Distended, Firm, Guarding, Rigid, Tenderness - Extremities Exam Extremities Exam: absent: Calf Tenderness, Pedal Edema - Neurological Exam Neurological Exam: Alert, Awake, Oriented x3 - Psychiatric Exam Psychiatric exam: Normal Affect, Normal Mood - Skin Skin Exam: Dry, Warm Assessment and Plan - Assessment and Plan (Free Text) Assessment: A/P: Patient is a 57 year old female with past medical history of Anemia, Anxiety, Asthma, Bronchitis, COPD, Depression, Emphysema, HTN, presented to the ED for worsening shortness of breath. Acute COPD exacerbation (improving) -Stable, afebrile -Solumedrol 40mg Q12H IVP -CXR 02/27: Hyperinflation with flattened diaphragms consistent with COPD or emphysema. -Continue Duoneb, Solumedrol 40 mg IVP q 8, Montelukast, Advair Diskus, Guaifenesin 600mg bid, Theophylline 300mg PO daily -Pulm consulted, Dr. Garza -Florastor 250mg daily -NC prn to maintain O2>92% -Pt on home O2: states she currently has no oxygen at her house. 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 -Continue to monitor HTN -Currently normal BP. Will continue to monitor Anxiety/Depression -Continue home medications Seroquel and Trazadone -Psych, Dr. Gant is consulted * Pseudoephedrine 60mg PO QID prn * Ativan 1mg PO q6h prn * Loperamide 2mg PO q8h prn * Atarax 25mg PO BID prn Heroin abuse -Pt is counselled on the adverse risks of heroin abuse and recommend cessation. -Psych is consulted and pending further recs -Methadone 20mg PO daily GI/DVT Prophylaxis - SCDs - Lovenox Disposition: Pt on home O2: states she currently has no oxygen at her house. group manager working on procuring new home O2. Pt aware she cannot be safely discharged without home O2. All orders and management per Dr. Kavya Rico. Mayda Marrero DO PGY-2
[2018-03-07] MEDS: Fluticasone-Salmeterol 500-50mcg Diskus INH SCH (07:55)
[2018-03-07] MEDS: Tiotropium 18 mcg Cap For Inhalation INH SCH (07:56)
[2018-03-07] MEDS: Theophylline 300mg ER 24 hrs Cap PO SCH (09:16)
[2018-03-07] MEDS: guaiFENesin 600 mg ER Tab PO SCH (09:17)
[2018-03-07] MEDS: Enoxaparin 40 mg Syringe SC SCH (09:17)
[2018-03-07] MEDS: Saccharomyces Boulardi 250 mg Cap PO SCH (09:17)
[2018-03-07 09:42] VITALS: O2SAT 96
[2018-03-07 15:53] VITALS: PULSE 110
[2018-03-07 16:06] VITALS: BP 108/68; TEMP 98.2
[2018-03-07] MEDS ORDERED: MethylPREDNISolone 40 mg Vial IVP SCH (22:00)
== END 2018-03-07 18:25 | disposition home or self-care (01) | DRG 88 ==
LOC: C.ER 09:31 → C.9E 11:46 → C.6T 13:25
PROVIDERS: ADMIT Internal Medicine Nephrology; ATTEND Internal Medicine Nephrology
PROC: 5A09357 Assistance with Respiratory Ventilation, Less than 24 Consecutive Hours, Continuous Positive Airway Pressure (ICD-10-PCS; principal; 2018-02-27)
DX: J44.1 Chronic obstructive pulmonary disease with (acute) exacerbation (principal); F33.1 Major depressive disorder, recurrent, moderate; F11.23 Opioid dependence with withdrawal; I10 Essential (primary) hypertension; F41.9 Anxiety disorder, unspecified; E11.9 Type 2 diabetes mellitus without complications; G47.30 Sleep apnea, unspecified; F17.210 Nicotine dependence, cigarettes, uncomplicated; H54.40 Blindness, one eye, unspecified eye; Z90.01 Acquired absence of eye; Z99.81 Dependence on supplemental oxygen

== ENCOUNTER 2018-04-15 19:21 | Inpatient (IN) | payer OTHER ==
[2018-04-15 19:21] VITALS: BMI 21.7
[2018-04-15] MEDS ORDERED: Sodium Chloride 0.9% 1,000 ML IV ONE (20:02)
--- NOTE | 2018-04-15 20:02 | C.PDOC ---
History Of Present Illness 57 year old female presents to the ED c/o SOB, productive cough with green sputum that has been worsening for the past week. Patient is speaking in complete sentences. Patient denies fever, chills, nausea, vomit, rash, recent travel, sick contacts. Time Seen by Provider: 04/15/18 20:02 Chief Complaint (Nursing): Shortness Of Breath History Per: Patient History/Exam Limitations: no limitations Onset/Duration Of Symptoms: Days Current Symptoms Are (Timing): Still Present Initiating Event: Upper Respiratory Illness, Other Exacerbating Factor(s): Coughing Current Respiratory Medications: See Home Med List Severity: Severe Pain Scale Rating Of: 7 Associated Symptoms: Productive Cough Reports Recently: Seen In ED, Treated By A Physician, Hospitalized Recent travel outside of the [place]: No Additional History Per: Patient Past Medical History Reviewed: Historical Data, Nursing Documentation, Vital Signs Vital Signs: Last Vital Signs Temp 99.5 F 04/15/18 19:30 Pulse 90 04/15/18 19:30 Resp 26 H 04/15/18 19:37 BP 141/81 04/15/18 19:30 Pulse Ox 94 L 04/15/18 21:42 - Medical History PMH: Anemia, Anxiety, Asthma, Bronchitis, Cardia Arrhythmia, COPD, Depression, Diabetes, Emphysema, HTN, Sleep Apnea Denies: Chronic Kidney Disease, Seizures, Sexually Transmitted Disease Surgical History: Back Surgery Denies: Coronary Stent, Pacemaker - [facility] Procedures APPLICATION OF SPLINT (12/18/03) ASSISTANCE WITH RESPIRATORY VENTILATION, 24-96 HRS, CPAP (02/01/17) ASSISTANCE WITH RESPIRATORY VENTILATION, <24 HRS, CPAP (02/27/18) ASSISTANCE WITH RESPIRATORY VENTILATION, >96 HRS, CPAP (01/23/17) DETOXIFICATION SERVICES FOR SUBSTANCE ABUSE TREATMENT (10/31/17) INDIV PSYCHOTHERAPY FOR SUBSTANCE ABUSE TREATMENT, SUPPORT (10/31/17) INDIV PSYCHOTHERAPY FOR SUBSTANCE ABUSE, PSYCHOEDUCATION (10/31/17) INDIVIDUAL PSYCHOTHERAPY, SUPPORTIVE (04/29/17) INJECT/INFUSE NEC (03/17/05) INSERTION OF ENDOTRACHEAL AIRWAY INTO TRACHEA, VIA OPENING (02/01/17) INSERTION OF INFUSION DEV INTO SUP VENA CAVA, PERC APPROACH (02/01/17) INTRODUCE OF OTH THERAP SUBST INTO RESP TRACT, VIA OPENING (01/23/17) INTRODUCE OF OXAZOLIDINONES INTO PERIPH VEIN, PERC APPROACH (02/01/17) MAGNETIC RESONANCE IMAGING OF SPINAL CANAL (07/19/98) RESPIRATORY VENTILATION, LESS THAN 24 CONSECUTIVE HOURS (02/01/17) TETANUS TOXOID ADMINIST (04/24/05) ULTRASONOGRAPHY OF LEFT UPPER EXTREMITY VEINS, GUIDANCE (02/01/17) Family History: States: Unknown Family Hx - Social History Hx Alcohol Use: No Hx Substance Use: No - Immunization History Hx Tetanus Toxoid Vaccination: No Hx Influenza Vaccination: No Hx Pneumococcal Vaccination: Yes Review Of Systems Constitutional: Negative for: Fever, Chills Eyes: Negative for: Vision Change ENT: Negative for: Throat Pain Cardiovascular: Negative for: Chest Pain, Palpitations Respiratory: Positive for: Cough, Shortness of Breath, Sputum Gastrointestinal: Negative for: Nausea, Vomiting, Abdominal Pain Genitourinary: Negative for: Dysuria Musculoskeletal: Negative for: Back Pain Skin: Negative for: Rash Neurological: Negative for: Weakness, Numbness Psych: Positive for: Anxiety Physical Exam - Physical Exam Appears: Non-toxic, In Acute Distress Skin: Warm, Dry Head: Normacephalic Eye(s): bilateral: Normal Inspection Oral Mucosa: Moist Throat: No Erythema, No Exudate Neck: Supple Chest: Symmetrical Cardiovascular: Rhythm Regular Respiratory: Decreased Breath Sounds, Accessory Muscle Use, No Rales, Rhonchi ( diffuse at the bases), Wheezing (scattered ) Gastrointestinal/Abdominal: Soft, No Tenderness, No Guarding, No Rebound Back: Normal Inspection Extremity: No Tenderness, No Swelling Extremity: Bilateral: Atraumatic, Normal Color And Temperature, Normal ROM Pulses: Left Dorsalis Pedis: Normal, Right Dorsalis Pedis: Normal Neurological/Psych: Oriented x3, Normal Speech Gait: Steady ED Course And Treatment - Laboratory Results Result Diagrams: 04/15/18 20:12 04/15/18 20:12 ECG: Interpreted By Me, Viewed By Me ECG Rhythm: Sinus Rhythm (91), Nonspecific Changes O2 Sat by Pulse Oximetry: 94 Pulse Ox Interpretation: Normal - Radiology CXR: Interpreted by Me, Viewed By Me CXR Interpretation: Yes: COPD. No: Infiltrates, Fracture, Pnemothorax Progress Note: Plan: - ABG. - EKG. - Labs. - CXR. - Duoneb. - IV fluids. - Blood culture. - UA Critical Care Time - Critical Care Note Total Time (in mins): 30 Documented critical care: time excludes all time spent performing seperately billable procedures. Disposition Discussed With Dr.: Augustine Rico Comment: accepted the pt on his service and took over the care at 10:26PM Counseled Patient/Family Regarding: Studies Performed, Diagnosis - Disposition Disposition: HOSPITALIZED Disposition Time: 20:02 Condition: GUARDED Forms: [facility] (Arabic) - POA Present On Arrival: Poor Glycemic Control - Clinical Impression Clinical Impression: COPD exacerbation, Dyspnea - Scribe Statement The provider has reviewed the documentation as recorded by the Scribe Faizan Vigil All medical record entries made by the Scribe were at my direction and personally dictated by me. I have reviewed the chart and agree that the record accurately reflects my personal performance of the history, physical exam, medical decision making, and the department course for this patient. I have also personally directed, reviewed, and agree with the discharge instructions and disposition. Decision To Admit - Pt Status Changed To: Hospital Disposition Of: Inpatient - Admit Certification Admit to Inpatient:: After my assessment, the patient will require hospitalization for at least two midnights. This is because of the severity of symptoms shown, intensity of services needed, and/or the medical risk in this patient being treated as an outpatient. - InPatient: Physician Admission Certification: I certify that this patient requires 2 or more midnights of care for the following reason:: After my assessment, the patient will require hospitalization for at least two midnights. This is because of the severity of symptoms shown, intensity of services needed, and/or the medical risk in this patient being treated as an outpatient. - . Bed Request Type: Telemetry Admitting Physician: Augustine Rico Patient Diagnosis: COPD exacerbation, Dyspnea
[2018-04-15] MEDS: Albuterol-Ipratrop 3 mg / 0.5 (3 ml) UD IH SCH ×3 (20:15→20:32)
[2018-04-15 20:16] LABS: BASO % 0.2 % (0.0-2.0); EOS % 0.2 % (0.0-4.0); HEMOGLOBIN 14.8 g/dL (11.0-16.0); LYMPH # 2.4 K/uL (1.0-4.3); LYMPH % 12.8 % (20.0-40.0); MEAN CELL VOLUME 95.3 fL (81.0-99.0); MEAN CORPUSCULAR HEMOGLOBIN 31.9 pg (27.0-31.0); MEAN CORPUSCULAR HGB CONC 33.5 g/dL (33.0-37.0); MONO # 1.4 K/uL (0.0-0.8); MONO % 7.2 % (0.0-10.0); NEUT % 79.6 % (50.0-75.0); RBC 4.63 Mil/uL (3.80-5.20); RED CELL DISTRIBUTION WIDTH 15.1 % (11.5-14.5)
[2018-04-15 20:20] LABS: WHITE BLOOD COUNT 18.9 K/uL (4.8-10.8)
[2018-04-15] MEDS ORDERED: Albuterol-Ipratrop 3 mg / 0.5 (3 ml) UD ONE (20:21)
[2018-04-15] MEDS ORDERED: Sodium Chloride 0.9% 1,000 ML ONE (20:30)
[2018-04-15] MEDS ORDERED: Azithromycin 500mg/250ML NS 500 MG/250 ML BAG IVPB ONE (20:30)
[2018-04-15] MEDS ORDERED: Azithromycin 500mg/250ML NS 250 MG/125 ML BAG IVPB SCH (20:30)
[2018-04-15 20:31] LABS: ALB/GLOB RATIO 1.3 (1.0-2.1); ALBUMIN 4.2 g/dL (3.5-5.0); CALCIUM 8.8 mg/dl (8.6-10.4); GFR NON-AFRICAN AMERICAN > 60; PROTHROMBIN TIME 11.4 SECONDS (9.7-12.2)
[2018-04-15 20:43] LABS: ALT/SGPT 185 U/L (9-52); AST/SGOT 104 U/L (14-36); BLOOD UREA NITROGEN 13 mg/dL (7-17)
[2018-04-16 00:36] LABS: SQUAMOUS EPITHIAL 3 /hpf (0-5); URINE BILIRUBIN NEGATIVE (NEGATIVE); URINE BLOOD NEGATIVE (NEGATIVE); URINE CLARITY Clear (Clear); URINE COLOR Yellow (YELLOW); URINE GLUCOSE (UA) NORMAL (Normal); URINE LEUKOCYTE ESTERASE TRACE Leu/uL (Negative); URINE PROTEIN NEGATIVE (NEGATIVE)
[2018-04-16] MEDS ORDERED: Azithromycin 500mg/250ML NS 500 MG/250 ML BAG IVPB STA (01:02)
[2018-04-16] MEDS: MethylPREDNISolone 40 mg Vial IV SCH ×3 (05:17→21:37)
[2018-04-16] MEDS: Albuterol-Ipratrop 3 mg / 0.5 (3 ml) UD INH SCH ×3 (07:52→19:20)
[2018-04-16] MEDS: Fluticasone-Salmeterol 500-50mcg Diskus INH SCH ×2 (07:53→19:20)
--- NOTE | 2018-04-16 09:28 | RAD ---
Chest x-ray single frontal view History: Shortness of breath. Comparison: 12/09/2017 Findings: Biapical pleural thickening with upper lobe granulomatous changes. Few scattered nodular densities at the lung apices. Hyperinflation suggestive for COPD and or emphysematous changes. Bibasilar breast and nipple shadows. Nodular density at the right lung base may represent nipple shadow. Clinical correlation. Bilateral hilar prominence. Heart size within normal limits. Degenerative changes spine. Impression: Biapical pleural thickening with upper lobe granulomatous changes. Few scattered nodular densities at the lung apices. Hyperinflation suggestive for COPD and or emphysematous changes. Bibasilar breast and nipple shadows. Nodular density at the right lung base may represent nipple shadow. Clinical correlation. Bilateral hilar prominence.
[2018-04-16] MEDS: Pantoprazole 40 mg EC Tab PO SCH (09:31)
[2018-04-16] MEDS: Enoxaparin 40 mg Syringe SC SCH (09:32)
--- NOTE | 2018-04-16 13:32 | CP.PCM.CON ---
History of Present Illness - History of Present Illness History of Present Illness: CHART REVIEWED. PT SEEN AND EXAMINED. 57 YO W FEMALE WITH A HX COPD, CHRONIC RESP FAILURE, ON HOME O2 X YRS, HTN, DM, ANXIETY, SUBSTANCE ABUSE ON METH, ADM 04/15/18 WITH INCREASED MOD SOB WITH MIN EXERTION X 1 WK., +COUGH, NO SPUTUM., NO RELIEF WITH HOME NEB OR INHALERS. AMBULATES WITH WALKER., STILL SMOKING. Review of Systems - Review of Systems All systems: reviewed and no additional remarkable complaints except - Constitutional Constitutional: Weakness. absent: Fever - EENT Eyes: Other Visual Disturbances Ears: absent: Ear Pain Nose/Mouth/Throat: absent: Post Nasal Drip - Cardiovascular Cardiovascular: absent: Chest Pain - Respiratory Respiratory: Cough, Dyspnea, Dyspnea on Exertion. absent: Hemoptysis - Gastrointestinal Gastrointestinal: absent: Nausea, Vomiting - Genitourinary Genitourinary: absent: Dysuria - Musculoskeletal Musculoskeletal: Back Pain - Integumentary Integumentary: absent: Rash - Neurological Neurological: absent: Dizziness, Focal Weakness - Psychiatric Psychiatric: Anxiety - Endocrine Endocrine: absent: Change in Body Appearance - Hematologic/Lymphatic Hematologic: absent: Easy Bleeding Past Patient History - Infectious Disease Hx of Infectious Diseases: None - Tetanus Immunizations Tetanus Immunization: Unknown - Past Medical History & Family History Past Medical History?: Yes Pertinent Family History: +HTN + DM - Past Social History Smoking Status: Light Smoker < 10 Cigarettes Daily Chewing Tobacco Use: No Cigar Use: No Alcohol: None Drugs: Opiates - CARDIAC Hx Cardia Arrhythmia: Yes Hx Hypertension: Yes Hx Pacemaker: No - PULMONARY Hx Asthma: Yes Hx Bronchitis: Yes Hx Chronic Obstructive Pulmonary Disease (COPD): Yes Hx Emphysema: Yes Hx Sleep Apnea: No Hx Tuberculosis: No - NEUROLOGICAL Hx Seizures: No - HEENT Hx HEENT Problems: 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 ) - SURGICAL HISTORY Hx Surgeries: Yes Hx Breast Biopsy: Yes Hx Section: Yes Hx Coronary Stent: No Hx Eye Surgery: Yes Hx Orthopedic Surgery: Yes (BACK) - ANESTHESIA Hx Anesthesia: Yes Hx Anesthesia Reactions: No Hx Malignant Hyperthermia: No Meds Allergies/Adverse Reactions: Allergies Allergy/AdvReac Type Severity Reaction Status Date / Time Penicillins Allergy ANAPHYLAXIS Verified 12/09/17 16:03 - Medications Medications: Current Medications Albuterol/Ipratropium (Duoneb 3 Mg/0.5 Mg (3 Ml) Ud) 3 ml INH RQ6 [facility] Last Admin: 04/16/18 07:52 Dose: 3 ml Enoxaparin Sodium (Lovenox) 40 mg SC DAILY [facility] Last Admin: 04/16/18 09:32 Dose: 40 mg Hydroxyzine HCl (Atarax) 25 mg PO BID PRN PRN Reason: Anxiety Azithromycin (Zithromax 500mg In Ns Addvantage) 500 mg in 250 mls @ 167 mls/hr IVPB Q24H [facility] PRN Reason: Protocol Methadone HCl (Methadone) 60 mg PO DAILY [facility] Last Admin: 04/16/18 11:51 Dose: 60 mg Methylprednisolone (Solu-Medrol) 40 mg IV Q8 [facility] Last Admin: 04/16/18 13:04 Dose: 40 mg Montelukast Sodium (Singulair) 10 mg PO HS [facility] Pantoprazole Sodium (Protonix Ec Tab) 40 mg PO DAILY [facility] Last Admin: 04/16/18 09:31 Dose: 40 mg Quetiapine Fumarate (Seroquel) 25 mg PO BID [facility] Last Admin: 04/16/18 09:32 Dose: 25 mg Fluticasone/Salmeterol (Advair Diskus 500/50) 1 puff INH RQ12 [facility] Last Admin: 04/16/18 07:53 Dose: Not Given Sertraline HCl (Zoloft) 50 mg PO DAILY [facility] Last Admin: 04/16/18 09:32 Dose: 50 mg Trazodone HCl (Desyrel) 100 mg PO HS [facility] Zolpidem Tartrate (Ambien) 5 mg PO HS [facility] Physical Exam - Constitutional Appears: No Acute Distress, Chronically Ill - Head Exam Head Exam: ATRAUMATIC, NORMOCEPHALIC - Eye Exam Eye Exam: absent: Scleral icterus Additional comments: RIGHT EYE PROSTHESIS. - ENT Exam ENT Exam: Mucous Membranes Moist - Neck Exam Neck exam: Positive for: Normal Inspection - Respiratory Exam Respiratory Exam: Decreased Breath Sounds, Prolonged Expiratory Phase. absent: Wheezes, Respiratory Distress - Cardiovascular Exam Cardiovascular Exam: RRR, +S1, +S2 - GI/Abdominal Exam GI & Abdominal Exam: Soft. absent: Tenderness - Rectal Exam Rectal Exam: Deferred - Extremities Exam Extremities exam: Negative for: calf tenderness, pedal edema - Back Exam Back exam: absent: CVA tenderness (L), CVA tenderness (R) - Neurological Exam Neurological exam: Alert, CN II-XII Intact, Oriented x3 - Psychiatric Exam Psychiatric exam: Normal Mood Results - Vital Signs Recent Vital Signs: Last Vital Signs Temp 98.2 F 04/16/18 07:20 Pulse 58 L 04/16/18 12:00 Resp 20 04/16/18 07:20 BP 110/61 04/16/18 07:20 Pulse Ox 95 04/16/18 07:20 - Labs Result Diagrams: 04/15/18 20:12 04/15/18 20:12 Labs: Laboratory Results - last 24 hr 04/15/18 04/15/18 04/15/18 20:12 20:12 20:12 WBC 18.9 H D RBC 4.63 Hgb 14.8 Hct 44.1 MCV 95.3 MCH 31.9 H MCHC 33.5 RDW 15.1 H Plt Count 155 MPV 9.0 Neut % (Auto) 79.6 H Lymph % (Auto) 12.8 L [place] % (Auto) 7.2 Eos % (Auto) 0.2 Baso % (Auto) 0.2 Neut # (Auto) 15.0 H Lymph # (Auto) 2.4 [place] # (Auto) 1.4 H Eos # (Auto) 0.0 Baso # (Auto) 0.0 PT 11.4 INR 1.0 APTT 33 Sodium 141 Potassium 3.9 Chloride 94 L Carbon Dioxide 38 H Anion Gap 14 BUN 13 Creatinine 0.5 L Est GFR ( Amer) > 60 Est GFR (Non-Af Amer) > 60 Random Glucose 137 H Calcium 8.8 Total Bilirubin 1.1 AST 104 H D ALT 185 H D Alkaline Phosphatase 66 Total Protein 7.3 Albumin 4.2 Globulin 3.1 Albumin/Globulin Ratio 1.3 Urine Color Urine Clarity Urine pH Ur Specific [place] Urine Protein Urine Glucose (UA) Urine Ketones Urine Blood Urine Nitrate Urine Bilirubin Urine Urobilinogen Ur Leukocyte Esterase Urine WBC (Auto) Urine RBC (Auto) Ur Squamous Epith Cells 04/15/18 23:51 WBC RBC Hgb Hct MCV MCH MCHC RDW Plt Count MPV Neut % (Auto) Lymph % (Auto) [place] % (Auto) Eos % (Auto) Baso % (Auto) Neut # (Auto) Lymph # (Auto) [place] # (Auto) Eos # (Auto) Baso # (Auto) PT INR APTT Sodium Potassium Chloride Carbon Dioxide Anion Gap BUN Creatinine Est GFR ( Amer) Est GFR (Non-Af Amer) Random Glucose Calcium Total Bilirubin AST ALT Alkaline Phosphatase Total Protein Albumin Globulin Albumin/Globulin Ratio Urine Color Yellow Urine Clarity Clear Urine pH 7.0 Ur Specific [place] 1.011 Urine Protein Negative Urine Glucose (UA) Normal Urine Ketones Trace Urine Blood Negative Urine Nitrate Negative Urine Bilirubin Negative Urine Urobilinogen 4.0 H Ur Leukocyte Esterase Trace Urine WBC (Auto) 2 Urine RBC (Auto) 2 Ur Squamous Epith Cells 3 Assessment & Plan (1) HTN (hypertension) Status: Acute (2) Diabetes Status: Acute (3) COPD exacerbation Status: Acute (4) Acute bronchitis Status: Acute (5) Methadone dependence Status: Acute (6) Opiate use Status: Acute (7) Tobacco abuse Status: Acute (8) Anxiety Status: Chronic Priority: Medium (9) Chronic, continuous use of opioids Status: Chronic (10) IV drug user Status: Chronic - Assessment and Plan (Free Text) Assessment: 57 YO W FEMALE WITH A HX MULT MED PROBS ADM WITH ACTUE EXAC COPD, CHRONIC RESP FAILURE., SEVERE BRONCHITIS., CONT NEB BD., ADVAIR., STEROID TAPER TOLERATED. MONITOR O2 SAT. CXR REVIEWED., CT CHEST FOR BETTER EVAL. CONT EMPIRIC AB., SMOKING CESSATION., PSYCH EVAL FOR DETOX. GI/DVT PROPHYLAXIS., PFT' S WHEN STABLE., DISCUSSED WITH STAFF AT LENGTH.
--- NOTE | 2018-04-16 13:39 | CP.PCM.HP ---
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 - RENAL Hx Chronic Kidney Disease: No - ENDOCRINE/METABOLIC Hx Endocrine Disorders: Yes Hx Diabetes Mellitus Type 2: Yes - HEMATOLOGICAL/ONCOLOGICAL Hx Anemia: Yes - INTEGUMENTARY Hx Dermatological Problems: No - MUSCULOSKELETAL/RHEUMATOLOGICAL Hx Falls: Yes - GASTROINTESTINAL Hx Gastrointestinal Disorders: Yes (constipation at times) - GENITOURINARY/GYNECOLOGICAL Hx Sexually Transmitted Disorders: No - PSYCHIATRIC Hx Substance Use: No - SURGICAL HISTORY Hx Coronary Stent: No - ANESTHESIA Hx Anesthesia: Yes Hx Anesthesia Reactions: No Hx Malignant Hyperthermia: No Meds Allergies/Adverse Reactions: Allergies Allergy/AdvReac Type Severity Reaction Status Date / Time Penicillins Allergy ANAPHYLAXIS Verified 12/09/17 16:03 Physical Exam - Constitutional Appears: Well - Head Exam Head Exam: ATRAUMATIC, NORMAL INSPECTION, NORMOCEPHALIC - Eye Exam Eye Exam: EOMI, Normal appearance, PERRL Pupil Exam: NORMAL ACCOMODATION, PERRL - ENT Exam ENT Exam: Mucous Membranes Moist, Normal Exam - Neck Exam Neck exam: Positive for: Normal Inspection - Respiratory Exam Respiratory Exam: Decreased Breath Sounds - Cardiovascular Exam Cardiovascular Exam: REGULAR RHYTHM, +S1, +S2 - GI/Abdominal Exam GI & Abdominal Exam: Diminished Bowel Sounds, Soft - Rectal Exam Rectal Exam: Deferred Results - Vital Signs Recent Vital Signs: Last Vital Signs Temp 98.2 F 04/16/18 07:20 Pulse 58 L 04/16/18 12:00 Resp 20 04/16/18 07:20 BP 110/61 04/16/18 07:20 Pulse Ox 95 04/16/18 07:20 - Labs Result Diagrams: 04/15/18 20:12 04/15/18 20:12 Labs: Laboratory Results - last 24 hr 04/15/18 04/15/18 04/15/18 20:12 20:12 20:12 WBC 18.9 H D RBC 4.63 Hgb 14.8 Hct 44.1 MCV 95.3 MCH 31.9 H MCHC 33.5 RDW 15.1 H Plt Count 155 MPV 9.0 Neut % (Auto) 79.6 H Lymph % (Auto) 12.8 L Bremer % (Auto) 7.2 Eos % (Auto) 0.2 Baso % (Auto) 0.2 Neut # (Auto) 15.0 H Lymph # (Auto) 2.4 Bremer # (Auto) 1.4 H Eos # (Auto) 0.0 Baso # (Auto) 0.0 PT 11.4 INR 1.0 APTT 33 Sodium 141 Potassium 3.9 Chloride 94 L Carbon Dioxide 38 H Anion Gap 14 BUN 13 Creatinine 0.5 L Est GFR ( Amer) > 60 Est GFR (Non-Af Amer) > 60 Random Glucose 137 H Calcium 8.8 Total Bilirubin 1.1 AST 104 H D ALT 185 H D Alkaline Phosphatase 66 Total Protein 7.3 Albumin 4.2 Globulin 3.1 Albumin/Globulin Ratio 1.3 Urine Color Urine Clarity Urine pH Ur Specific Blythe Urine Protein Urine Glucose (UA) Urine Ketones Urine Blood Urine Nitrate Urine Bilirubin Urine Urobilinogen Ur Leukocyte Esterase Urine WBC (Auto) Urine RBC (Auto) Ur Squamous Epith Cells 04/15/18 23:51 WBC RBC Hgb Hct MCV MCH MCHC RDW Plt Count MPV Neut % (Auto) Lymph % (Auto) Bremer % (Auto) Eos % (Auto) Baso % (Auto) Neut # (Auto) Lymph # (Auto) Bremer # (Auto) Eos # (Auto) Baso # (Auto) PT INR APTT Sodium Potassium Chloride Carbon Dioxide Anion Gap BUN Creatinine Est GFR ( Amer) Est GFR (Non-Af Amer) Random Glucose Calcium Total Bilirubin AST ALT Alkaline Phosphatase Total Protein Albumin Globulin Albumin/Globulin Ratio Urine Color Yellow Urine Clarity Clear Urine pH 7.0 Ur Specific Blythe 1.011 Urine Protein Negative Urine Glucose (UA) Normal Urine Ketones Trace Urine Blood Negative Urine Nitrate Negative Urine Bilirubin Negative Urine Urobilinogen 4.0 H Ur Leukocyte Esterase Trace Urine WBC (Auto) 2 Urine RBC (Auto) 2 Ur Squamous Epith Cells 3
[2018-04-16] MEDS: Azithromycin 500mg/250ML NS 500 MG/250 ML BAG IVPB SCH (19:28)
[2018-04-17] MEDS: Albuterol-Ipratrop 3 mg / 0.5 (3 ml) UD INH SCH ×4 (01:31→19:32)
[2018-04-17] MEDS: MethylPREDNISolone 40 mg Vial IV SCH ×3 (05:43→22:14)
[2018-04-17 08:13] LABS: BASO % 0.3 % (0.0-2.0); HEMOGLOBIN 13.6 g/dL (11.0-16.0); LYMPH # 0.8 K/uL (1.0-4.3); MEAN CELL VOLUME 94.5 fL (81.0-99.0); MEAN CORPUSCULAR HEMOGLOBIN 32.4 pg (27.0-31.0); MEAN CORPUSCULAR HGB CONC 34.3 g/dL (33.0-37.0); MEAN PLATELET VOLUME 9.3 fL (7.2-11.7); MONO # 0.4 K/uL (0.0-0.8); MONO % 3.8 % (0.0-10.0); NEUT # 10.1 K/uL (1.8-7.0); NEUT % 88.9 % (50.0-75.0); RED CELL DISTRIBUTION WIDTH 14.9 % (11.5-14.5); WHITE BLOOD COUNT 11.4 K/uL (4.8-10.8)
[2018-04-17] MEDS: Fluticasone-Salmeterol 500-50mcg Diskus INH SCH ×2 (08:18→19:32)
[2018-04-17 08:28] LABS: ALB/GLOB RATIO 1.2 (1.0-2.1); ALBUMIN 3.3 g/dL (3.5-5.0); ALT/SGPT 120 U/L (9-52); AST/SGOT 40 U/L (14-36); BLOOD UREA NITROGEN 14 mg/dL (7-17); CALCIUM 8.4 mg/dl (8.6-10.4); GFR NON-AFRICAN AMERICAN > 60; PLATELET COUNT 118 K/uL (130-400)
[2018-04-17 09:28] LABS: ANISOCYTOSIS SLIGHT; BANDS 1 % (0-2); LYMPHOCYTE 5 % (20-40); MONOCYTE 3 % (0-10); NEUTROPHIL 91 % (50-75); PLATELET ESTIMATE SLIGHTLY DECREASED (NORMAL); TOTAL CELLS COUNTED 100
[2018-04-17] MEDS: Pantoprazole 40 mg EC Tab PO SCH (09:44)
[2018-04-17] MEDS: Enoxaparin 40 mg Syringe SC SCH (09:44)
--- NOTE | 2018-04-17 13:59 | CP.PCM.PN ---
Subjective - Date & Time of Evaluation Date of Evaluation: 04/17/18 Time of Evaluation: 13:57 - Subjective Subjective: PT ALERT, +COUGH., LESS SOB. EATING OK. ROS' ; OTHERWISE NEG. Objective - Vital Signs/Intake and Output Vital Signs (last 24 hours): Temp Pulse Resp BP Pulse Ox 98.5 F 57 L 20 81/45 L 93 L 04/17/18 07:40 04/17/18 12:00 04/17/18 07:40 04/17/18 07:40 04/17/18 07:40 Intake and Output: 04/17/18 04/17/18 06:59 18:59 Intake Total 500 Balance 500 - Medications Medications: Current Medications Albuterol/Ipratropium (Duoneb 3 Mg/0.5 Mg (3 Ml) Ud) 3 ml INH RQ6 [facility] Last Admin: 04/17/18 13:13 Dose: 3 ml Enoxaparin Sodium (Lovenox) 40 mg SC DAILY [facility] Last Admin: 04/17/18 09:44 Dose: 40 mg Hydroxyzine HCl (Atarax) 25 mg PO BID PRN PRN Reason: Anxiety Azithromycin (Zithromax 500mg In Ns Addvantage) 500 mg in 250 mls @ 167 mls/hr IVPB Q24H [facility] PRN Reason: Protocol Last Admin: 04/16/18 19:28 Dose: 167 mls/hr Methadone HCl (Methadone) 60 mg PO DAILY [facility] Last Admin: 04/17/18 09:44 Dose: 60 mg Methylprednisolone (Solu-Medrol) 40 mg IV Q8 [facility] Last Admin: 04/17/18 05:43 Dose: 40 mg Montelukast Sodium (Singulair) 10 mg PO HS [facility] Last Admin: 04/16/18 21:42 Dose: 10 mg Pantoprazole Sodium (Protonix Ec Tab) 40 mg PO DAILY [facility] Last Admin: 04/17/18 09:44 Dose: 40 mg Quetiapine Fumarate (Seroquel) 25 mg PO BID [facility] Last Admin: 04/17/18 09:44 Dose: 25 mg Fluticasone/Salmeterol (Advair Diskus 500/50) 1 puff INH RQ12 [facility] Last Admin: 04/17/18 08:18 Dose: 1 puff Sertraline HCl (Zoloft) 50 mg PO DAILY [facility] Last Admin: 04/17/18 09:44 Dose: 50 mg Trazodone HCl (Desyrel) 100 mg PO HS [facility] Last Admin: 04/16/18 22:42 Dose: 100 mg Zolpidem Tartrate (Ambien) 5 mg PO HS [facility] Last Admin: 04/16/18 22:44 Dose: Not Given - Labs Labs: 04/17/18 07:58 04/17/18 07:58 PT 11.4 SECONDS (9.7-12.2) 04/15/18 20:12 INR 1.0 04/15/18 20:12 APTT 33 SECONDS (21-34) 04/15/18 20:12 - Constitutional Appears: No Acute Distress, Chronically Ill - Head Exam Head Exam: ATRAUMATIC, NORMOCEPHALIC - Eye Exam Eye Exam: absent: Scleral icterus Additional comments: RIGHT EYE PROSTHESIS. - ENT Exam ENT Exam: Mucous Membranes Moist - Neck Exam Neck Exam: Normal Inspection - Respiratory Exam Respiratory Exam: Decreased Breath Sounds, Rhonchi. absent: Respiratory Distress - Cardiovascular Exam Cardiovascular Exam: RRR, +S1, +S2 - GI/Abdominal Exam GI & Abdominal Exam: Soft. absent: Tenderness - Rectal Exam Rectal Exam: Deferred - Extremities Exam Extremities Exam: absent: Calf Tenderness, Pedal Edema - Back Exam Back Exam: absent: CVA tenderness (L), CVA tenderness (R) - Neurological Exam Neurological Exam: Alert, Awake, CN II-XII Intact, Oriented x3 - Psychiatric Exam Psychiatric exam: Normal Mood - Skin Skin Exam: absent: Rash Assessment and Plan (1) HTN (hypertension) Status: Acute (2) Diabetes Status: Acute (3) COPD exacerbation Status: Acute (4) Acute bronchitis Status: Acute (5) Methadone dependence Status: Acute (6) Opiate use Status: Acute (7) Tobacco abuse Status: Acute (8) Anxiety Status: Chronic (9) Chronic, continuous use of opioids Status: Chronic (10) IV drug user Status: Chronic - Assessment and Plan (Free Text) Assessment: RESP STATUS IMPROVING., CONT NEB BD., STEROID TAPER TOLERATED., MONITOR O2 SAT. AFEBRILE ON AB. CXR REVIEWED., INCREASE OOB., DISCUSSED WITH STAFF.
--- NOTE | 2018-04-17 14:32 | CP.PCM.PN ---
Subjective - Date & Time of Evaluation Date of Evaluation: 04/17/18 Time of Evaluation: 09:00 - Subjective Subjective: clinically same Objective - Vital Signs/Intake and Output Vital Signs (last 24 hours): Temp Pulse Resp BP Pulse Ox 98.5 F 57 L 20 81/45 L 93 L 04/17/18 07:40 04/17/18 12:00 04/17/18 07:40 04/17/18 07:40 04/17/18 07:40 Intake and Output: 04/17/18 04/17/18 06:59 18:59 Intake Total 500 Balance 500 - Medications Medications: Current Medications Albuterol/Ipratropium (Duoneb 3 Mg/0.5 Mg (3 Ml) Ud) 3 ml INH RQ6 [facility] Last Admin: 04/17/18 13:13 Dose: 3 ml Enoxaparin Sodium (Lovenox) 40 mg SC DAILY [facility] Last Admin: 04/17/18 09:44 Dose: 40 mg Hydroxyzine HCl (Atarax) 25 mg PO BID PRN PRN Reason: Anxiety Azithromycin (Zithromax 500mg In Ns Addvantage) 500 mg in 250 mls @ 167 mls/hr IVPB Q24H [facility] PRN Reason: Protocol Last Admin: 04/16/18 19:28 Dose: 167 mls/hr Methadone HCl (Methadone) 60 mg PO DAILY [facility] Last Admin: 04/17/18 09:44 Dose: 60 mg Methylprednisolone (Solu-Medrol) 40 mg IV Q8 [facility] Last Admin: 04/17/18 05:43 Dose: 40 mg Montelukast Sodium (Singulair) 10 mg PO HS [facility] Last Admin: 04/16/18 21:42 Dose: 10 mg Pantoprazole Sodium (Protonix Ec Tab) 40 mg PO DAILY [facility] Last Admin: 04/17/18 09:44 Dose: 40 mg Quetiapine Fumarate (Seroquel) 25 mg PO BID [facility] Last Admin: 04/17/18 09:44 Dose: 25 mg Fluticasone/Salmeterol (Advair Diskus 500/50) 1 puff INH RQ12 [facility] Last Admin: 04/17/18 08:18 Dose: 1 puff Sertraline HCl (Zoloft) 50 mg PO DAILY [facility] Last Admin: 04/17/18 09:44 Dose: 50 mg Trazodone HCl (Desyrel) 100 mg PO HS [facility] Last Admin: 04/16/18 22:42 Dose: 100 mg Zolpidem Tartrate (Ambien) 5 mg PO [facility] Last Admin: 04/16/18 22:44 Dose: Not Given - Labs Labs: 04/17/18 07:58 04/17/18 07:58 PT 11.4 SECONDS (9.7-12.2) 04/15/18 20:12 INR 1.0 04/15/18 20:12 APTT 33 SECONDS (21-34) 04/15/18 20:12 - Constitutional Appears: Well - Head Exam Head Exam: ATRAUMATIC, NORMAL INSPECTION, NORMOCEPHALIC - Eye Exam Eye Exam: EOMI, Normal appearance, PERRL Pupil Exam: NORMAL ACCOMODATION, PERRL - ENT Exam ENT Exam: Mucous Membranes Moist, Normal Exam - Neck Exam Neck Exam: Full ROM, Normal Inspection. absent: Lymphadenopathy - Respiratory Exam Respiratory Exam: Decreased Breath Sounds - Cardiovascular Exam Cardiovascular Exam: REGULAR RHYTHM, +S1, +S2 - GI/Abdominal Exam GI & Abdominal Exam: Soft, Diminished Bowel Sounds - Rectal Exam Rectal Exam: Deferred
[2018-04-17] MEDS: Azithromycin 500mg/250ML NS 500 MG/250 ML BAG IVPB SCH (19:14)
[2018-04-18] MEDS: Albuterol-Ipratrop 3 mg / 0.5 (3 ml) UD INH SCH ×4 (01:38→19:36)
[2018-04-18] MEDS: MethylPREDNISolone 40 mg Vial IV SCH ×3 (05:29→21:19)
[2018-04-18] MEDS: Fluticasone-Salmeterol 500-50mcg Diskus INH SCH ×2 (08:06→19:36)
--- NOTE | 2018-04-18 08:10 | CARD ---
APPROVED REPORT Date of service: 04/15/2018 EKG Measurement Heart [id number] <Conclusion> Sinus rhythm with sinus arrhythmia with short IL Possible Left atrial enlargement Borderline ECG
[2018-04-18 08:17] LABS: BASO % 0.3 % (0.0-2.0); HEMOGLOBIN 13.4 g/dL (11.0-16.0); LYMPH # 0.5 K/uL (1.0-4.3); LYMPH % 3.7 % (20.0-40.0); MEAN CELL VOLUME 95.5 fL (81.0-99.0); MEAN CORPUSCULAR HEMOGLOBIN 32.4 pg (27.0-31.0); MEAN CORPUSCULAR HGB CONC 33.9 g/dL (33.0-37.0); MEAN PLATELET VOLUME 9.5 fL (7.2-11.7); MONO # 0.6 K/uL (0.0-0.8); MONO % 4.3 % (0.0-10.0); NEUT # 12.8 K/uL (1.8-7.0); NEUT % 91.7 % (50.0-75.0); PLATELET COUNT 129 K/uL (130-400); RBC 4.14 Mil/uL (3.80-5.20); RED CELL DISTRIBUTION WIDTH 15.3 % (11.5-14.5); WHITE BLOOD COUNT 13.9 K/uL (4.8-10.8)
[2018-04-18 08:21] LABS: ALB/GLOB RATIO 1.1 (1.0-2.1); ALBUMIN 3.2 g/dL (3.5-5.0); ALT/SGPT 98 U/L (9-52); AST/SGOT 30 U/L (14-36); BLOOD UREA NITROGEN 21 mg/dL (7-17); GFR NON-AFRICAN AMERICAN > 60
[2018-04-18 08:54] LABS: BANDS 1 % (0-2); LYMPHOCYTE 5 % (20-40); MONOCYTE 3 % (0-10); NEUTROPHIL 91 % (50-75); PLATELET ESTIMATE NORMAL (NORMAL); TOTAL CELLS COUNTED 100
[2018-04-18] MEDS: Pantoprazole 40 mg EC Tab PO SCH (09:03)
[2018-04-18] MEDS: Enoxaparin 40 mg Syringe SC SCH (09:03)
[2018-04-18] MEDS ORDERED: Dextrose 50% SYRINGE Inj (50 ml) IV PRN (12:54)
[2018-04-18] MEDS ORDERED: Glucagon Recombinant 1 mg Inj IM PRN (12:54)
--- NOTE | 2018-04-18 13:02 | CP.PCM.PN ---
Subjective - Date & Time of Evaluation Date of Evaluation: 04/18/18 Time of Evaluation: 09:49 - Subjective Subjective: PGY2 Medicine Note for Dr. Kavya Rico Patient seen and examined at bedside this morning. No acute events overnight. Patient reports improvement in her breathing but she is still coughing up thick , green phlegm. She states her hands have started to shake shortly after her breathing treatment. This is a common occurrence for her and happened after most of her treatments on her most recent hospitalization one month ago. Patient states that she came to the hospital because of a worsening, productive cough for one week with associated dysnpea on exertion. She has no other complaints at this time. Denies fevers, chills, nausea, vomiting, diarrhea, constipation, chest pain, abdominal pain, headaches, vision changes, numbness or tingling. Objective - Vital Signs/Intake and Output Vital Signs (last 24 hours): Temp Pulse Resp BP Pulse Ox 98.4 F 62 18 116/61 93 L 04/18/18 07:55 04/18/18 11:34 04/18/18 07:55 04/18/18 07:55 04/18/18 07:55 Intake and Output: 04/18/18 04/18/18 06:59 18:59 Intake Total 730 Balance 730 - Medications Medications: Current Medications Albuterol/Ipratropium (Duoneb 3 Mg/0.5 Mg (3 Ml) Ud) 3 ml INH RQ6 [facility] Last Admin: 04/18/18 01:38 Dose: 3 ml Enoxaparin Sodium (Lovenox) 40 mg SC DAILY [facility] Last Admin: 04/18/18 09:03 Dose: 40 mg Hydroxyzine HCl (Atarax) 25 mg PO BID PRN PRN Reason: Anxiety Azithromycin (Zithromax 500mg In Ns Addvantage) 500 mg in 250 mls @ 167 mls/hr IVPB Q24H [facility] PRN Reason: Protocol Last Admin: 04/17/18 19:14 Dose: 167 mls/hr Methadone HCl (Methadone) 60 mg PO DAILY [facility] Last Admin: 04/18/18 09:04 Dose: 60 mg Methylprednisolone (Solu-Medrol) 40 mg IV Q8 [facility] Last Admin: 04/18/18 05:29 Dose: 40 mg Montelukast Sodium (Singulair) 10 mg PO HS [facility] Last Admin: 04/17/18 22:14 Dose: 10 mg Pantoprazole Sodium (Protonix Ec Tab) 40 mg PO DAILY [facility] Last Admin: 04/18/18 09:03 Dose: 40 mg Quetiapine Fumarate (Seroquel) 25 mg PO BID [facility] Last Admin: 04/18/18 09:03 Dose: 25 mg Fluticasone/Salmeterol (Advair Diskus 500/50) 1 puff INH RQ12 [facility] Last Admin: 04/17/18 19:32 Dose: 1 puff Sertraline HCl (Zoloft) 50 mg PO DAILY [facility] Last Admin: 04/18/18 09:03 Dose: 50 mg Trazodone HCl (Desyrel) 100 mg PO [facility] Last Admin: 04/17/18 22:13 Dose: 100 mg Zolpidem Tartrate (Ambien) 5 mg PO [facility] Last Admin: 04/17/18 23:00 Dose: Not Given - Labs Labs: 04/18/18 07:55 04/18/18 07:55 PT 11.4 SECONDS (9.7-12.2) 04/15/18 20:12 INR 1.0 04/15/18 20:12 APTT 33 SECONDS (21-34) 04/15/18 20:12 - Constitutional Appears: Non-toxic, No Acute Distress, Chronically Ill - Head Exam Head Exam: ATRAUMATIC, NORMOCEPHALIC - Eye Exam Eye Exam: absent: Normal appearance (right eye prosthesis) - ENT Exam ENT Exam: Mucous Membranes Moist Additional comments: poor dentition - Neck Exam Neck Exam: absent: Lymphadenopathy - Respiratory Exam Respiratory Exam: Decreased Breath Sounds, Rhonchi (b/l). absent: Accessory Muscle Use, Rales, Wheezes, Respiratory Distress - Cardiovascular Exam Cardiovascular Exam: REGULAR RHYTHM, +S1 - GI/Abdominal Exam GI & Abdominal Exam: Soft. absent: Distended, Firm, Guarding, Rigid, Tenderness - Extremities Exam Extremities Exam: absent: Calf Tenderness, Pedal Edema - Neurological Exam Neurological Exam: Alert, Awake, Oriented x3 - Psychiatric Exam Psychiatric exam: Normal Affect, Normal Mood - Skin Skin Exam: Dry, Warm Assessment and Plan - Assessment and Plan (Free Text) Plan: COPD exacerbation - Pulm consulted, Dr. Carver - CXR 04/15: * Biapical pleural thickening with upper lobe granulomatous changes. Few scattered nodular densities at the lung apices. * Hyperinflation suggestive for COPD and or emphysematous changes. * Bibasilar breast and nipple shadows. Nodular density at the right lung base may represent nipple shadow. Clinical correlation. * Bilateral hilar prominence. - Pt was afebrile (Tmax 100F) with elevated WBC count on admission - NC prn to maintain O2>92% - Duoneb 3mL INH 16h - Solumedrol 40 mg IVP q8h - Montelukast 10mg PO HS - Advair Diskus 1 puff q12h - Azithromycin 500mg IVPB q24h (started on 04/16) Abdominal Pain - resolved - Abd/Pelvis 02/28: No acute pathology. - continue to monitor HTN - Currently normal BP. Will continue to monitor Anxiety - Continue home medications * Seroquel 25mg PO BID * Sertraline 50mg PO daily * Trazadone 100mg PO HS * Atarax 25mg PO BID prn Heroin abuse - Psych consulted, Dr. Reyes * Methadone treatment per psych Prophylaxis - SCDs - Lovenox 40mg SC daily - Protonix 40mg PO daily - Ambien 5mg PO HS All orders and management per Dr. Kavya Rico
[2018-04-18] MEDS ORDERED: Albuterol-Ipratrop 3 mg / 0.5 (3 ml) UD INH STA (14:09)
--- NOTE | 2018-04-18 16:08 | PCM.PSYCH ---
Initial Psychiatric Evaluation - Initial Psychiatric Evaluation Type of Admission: Voluntary Legal Status: Capacity Chief Complaint (in patient's own words): "I need methadone." History of Present Illness and Precipitating Events: Pt is seen, chart reviewed, case discussed with staff. Consultation was requested because of her psychiatric medications and methadone maintenance regimen. Pt is a 57 y/o female who is single and living with her 27 y/o son and 19 y/o daughter in an apartment in ; pt also has a 40 y/o son. Pt is admitted to the hospital for COPD exacerbation and dyspnea. Consultation was requested for her opioid use. Pt has a hx of heroin abuse for the past 5 years and was using 20 bags/day IV into both arms and hands; pt has been on 60 mg methadone maintenance from [facility] for the past 3 months; pt intermittently uses while on methadone but has been clean for the past week. Pts heroin use began when pharmacy cut her off from the 90 mg of Oxycodone she was taking daily for 10 years as prescribed by her pain doctor following 2 back operations. Pt denies current alcohol, pill, cocaine, LSD, or PCP use. Pt smoked 1 pack/day for 40 years but quit 1 month ago due to COPD exacerbation. Pt has been to detox 3x, 2x here at ; pt has never been to rehab because she says that she gets denied because of her COPD. Pt does not describe or display significant withdrawal sxs. Pt reports a hx of depression and says that she sometimes feels upset for no reason, gets mad because she loses interest in things she used to enjoy doing, and feels guilty; pt also reports a hx of anxiety and says that she has trouble sleeping at night as her mind races. Pt has a hx of panic attacks which began 3 years ago; during these episodes pt feels like she is going to and says that she cannot breathe; pt says that she has passed out from these episodes before. Pt reports that she has been forgetting things this week; pt says that she forgets having conversations with people and that she has been talking in tangents about things that just dont make sense. Pt denies A/H or paranoia; pt says that she sometimes experiences V/H in her peripheral vision as things moving but when she turns to look there is nothing there. Pt attempted to overdose on sleeping pills in her 20s and was hospitalized but denies any S/I or H/I now. Pt is currently prescribed Ambien 5 mg, Trazodone 100 mg, melatonin, quetiapine 25 mg, and sertraline 50 mg. Past medical hx: Hep C, COPD, emphysema Family psyc hx: multiple family members have drug abuse issues Pt reports that she is interested in an outpatient program and NA meetings and would like to speak with a social service technician regarding these referrals. Current Medications: Active Medications Generic Name Dose Route Start Last Admin Trade Name Freq PRN Reason Stop Dose Admin Albuterol/Ipratropium 3 ml 04/16/18 02:00 04/18/18 14:45 Duoneb 3 Mg/0.5 Mg (3 Ml) Ud INH 3 ml RQ6 [facility] Administration Dextrose 0 ml 04/18/18 12:54 Dextrose 50% Inj IV STAT PRN Hypoglycemia Protocol Protocol Dextrose 0 gm 04/18/18 12:54 Glutose 15 PO ONCE PRN Hypoglycemia Protocol Protocol Enoxaparin Sodium 40 mg 04/16/18 10:00 04/18/18 09:03 Lovenox SC 40 mg DAILY [facility] Administration Escitalopram Oxalate 10 mg 04/19/18 10:00 Lexapro PO DAILY [facility] Glucagon 0 mg 04/18/18 12:54 Glucagen Diagnostic Kit IM STAT PRN Hypoglycemia Protocol Protocol Hydroxyzine HCl 25 mg 04/16/18 00:50 Atarax PO BID PRN Anxiety Azithromycin 500 mg in 250 mls @ 167 mls/hr 04/16/18 20:00 04/17/18 19:14 Zithromax 500mg In Ns Addvantage IVPB 167 mls/hr Q24H [facility] Administration Protocol Dextrose 1,000 mls @ 0 mls/hr 04/18/18 12:54 Dextrose 5% In Water 1000 Ml IV .Q0M PRN Hypoglycemia Protocol Protocol Per Protocol Insulin Human Regular 0 unit 04/18/18 16:30 Novolin R SC ACHS [facility] Protocol Methadone HCl 60 mg 04/16/18 11:15 04/18/18 09:04 Methadone PO 60 mg DAILY [facility] Administration Methylprednisolone 40 mg 04/16/18 06:00 04/18/18 14:59 Solu-Medrol IV 40 mg Q8 [facility] Administration Montelukast Sodium 10 mg 04/16/18 22:00 04/17/18 22:14 Singulair PO 10 mg HS [facility] Administration Pantoprazole Sodium 40 mg 04/16/18 10:00 04/18/18 09:03 Protonix Ec Tab PO 40 mg DAILY [facility] Administration Quetiapine Fumarate 25 mg 04/16/18 18:00 04/18/18 09:03 Seroquel PO 25 mg BID [facility] Administration Fluticasone/Salmeterol 1 puff 04/16/18 08:00 04/18/18 08:06 Advair Diskus 500/50 INH 1 puff RQ12 [facility] Administration Trazodone HCl 100 mg 04/16/18 22:00 04/17/18 22:13 Desyrel PO 100 mg HS [facility] Administration Zolpidem Tartrate 5 mg 04/16/18 22:00 04/17/18 23:00 Ambien PO Not Given HS [facility] Past Psychiatric History - Past Psychiatric History Previous Treatment History: Inpatient Prior Professional Help: [facility] Pertinent Medical Hx (Current Medical&Sleep Prob, Allergies): Allergies Allergy/AdvReac Type Severity Reaction Status Date / Time Penicillins Allergy ANAPHYLAXIS Verified 12/09/17 16:03 hydrOXYzine HCl [Atarax] 25 mg PO BID PRN #60 tab 11/05/17 traZODone [Desyrel] 100 mg PO HS #30 tab 11/05/17 Albuterol HFA [Ventolin HFA 90 mcg/actuation (8 g)] 1 puff INH RQ4 PRN #1 inhaler 03/07/18 Fluticasone/Salmeterol 500/50 [Advair Diskus 500/50] 1 puff INH RQ12 #1 inhaler 03/07/18 Montelukast [Singulair] 10 mg PO HS #30 tab 03/07/18 Theophylline Anhydrous [Miguel-24] 300 mg PO DAILY #30 cap.er.24h 03/07/18 Albuterol/Ipratropium [Duoneb 3 MG/3 Ml-0.5 MG/3 Ml 3 Ml] 3 ml IH TID PRN Melatonin 5 mg PO HS 04/15/18 QUEtiapine [SEROquel] 25 mg PO BID 04/15/18 Sertraline HCl 50 mg PO DAILY 04/15/18 Umeclidinium [place] [Incruse Ellipta] 62.5 mcg IH DAILY 04/15/18 Zolpidem Tartrate 5 mg PO HS 04/15/18 predniSONE [Prednisone] 20 mg PO DAILY 04/15/18 Review of Systems - Psychiatric Psychiatric: Abnormal Sleep Pattern, Anhedonia, Anxiety, Behavioral Changes, Confusion, Depression, Difficulty Concentrating, Hopelessness, Visual Hallucinations. absent: Auditory Hallucinations, Hallucinations, Homicidal Ideation, Paranoia, Suicidal Ideation, Tactile Hallucinations Mental Status Examination - Personal Presentation Personal Presentation: Looks stated age - Affect Affect: Broad - Motor Activity Motor Activity: Psychomotor Retardation - Reliability in Providing Information Reliability in Providing Information: Good - Speech Speech: Organized - Mood Mood: Depressed, Anxious - Formal Thought Process Formal Thought Process: No Impairment - Obsessions/Compulsions Obsessions: No Compulsions: No - Cognitive Functions Orientation: Person, Place, Situation, Time Sensorium: Alert Attention/Concentration: Attentive Estimate of Intelligence: Average Judgement: Intact, as evidence by: Insight regarding need for hospitalization Memory: Recent intact, as evidence by: Ability to recall events of the day, Remote intact, as evidenced by: Abilit to recall sig. life events - Risk Risk: Withdrawal, Diminished functioning - Strength & Assets Inventory Strength & Assets Inventory: Family support, Cooperative DSM 5 DX - DSM 5 DSM 5 Diagnosis: Opioid Use Disorder, severe, on maintenance treatment Major Depressive Disorder, recurring, severe - Recommended/Plan of Treatment Treatment Recommendations and Plan of Treatment: Continue daily methadone 60 mg PO as confirmed by [facility] Gabapentin for augmentation if needed As needed medications Lexapro 10 mg, Atarax 25 mg, and Seroquel 25 mg for anxiety; Desyrel 100 mg and Ambien 5 mgfor sleep All risks, benefits and alternatives of the meds discussed, and the pt agreed and understood. Attend groups and activities Supportive therapy and psychoeducation NC for abstinence CBT for relapse prevention Encourage MAT Refer to rehab or IOP, and self-help groups Smoking cessation with NC Nicotine patch if needed 35 min
[2018-04-18] MEDS: (Novolin R) Insulin Human Regular 100 units/ml vial SC SCH ×2 (17:21→21:25)
--- NOTE | 2018-04-18 19:00 | CP.PCM.PN ---
Subjective - Date & Time of Evaluation Date of Evaluation: 04/18/18 Time of Evaluation: 08:30 - Subjective Subjective: clinically same Objective - Vital Signs/Intake and Output Vital Signs (last 24 hours): Temp Pulse Resp BP Pulse Ox 98.2 F 88 20 113/54 L 91 L 04/18/18 16:00 04/18/18 16:00 04/18/18 16:00 04/18/18 16:00 04/18/18 16:00 Intake and Output: 04/18/18 04/18/18 06:59 18:59 Intake Total 730 600 Output Total 800 Balance 730 -200 - Medications Medications: Current Medications Albuterol/Ipratropium (Duoneb 3 Mg/0.5 Mg (3 Ml) Ud) 3 ml INH RQ6 [facility] Last Admin: 04/18/18 14:45 Dose: 3 ml Dextrose (Dextrose 50% Inj) 0 ml IV STAT PRN; Protocol PRN Reason: Hypoglycemia Protocol Dextrose (Glutose 15) 0 gm PO ONCE PRN; Protocol PRN Reason: Hypoglycemia Protocol Enoxaparin Sodium (Lovenox) 40 mg SC DAILY [facility] Last Admin: 04/18/18 09:03 Dose: 40 mg Escitalopram Oxalate (Lexapro) 10 mg PO DAILY [facility] Glucagon (Glucagen Diagnostic Kit) 0 mg IM STAT PRN; Protocol PRN Reason: Hypoglycemia Protocol Hydroxyzine HCl (Atarax) 25 mg PO BID PRN PRN Reason: Anxiety Azithromycin (Zithromax 500mg In Ns Addvantage) 500 mg in 250 mls @ 167 mls/hr IVPB Q24H [facility] PRN Reason: Protocol Last Admin: 04/17/18 19:14 Dose: 167 mls/hr Dextrose (Dextrose 5% In Water 1000 Ml) 1,000 mls @ 0 mls/hr IV .Q0M PRN; Protocol; Per Protocol PRN Reason: Hypoglycemia Protocol Insulin Human Regular (Novolin R) 0 unit SC ACHS [facility] PRN Reason: Protocol Last Admin: 04/18/18 17:21 Dose: 3 units Methadone HCl (Methadone) 60 mg PO DAILY [facility] Last Admin: 04/18/18 09:04 Dose: 60 mg Methylprednisolone (Solu-Medrol) 40 mg IV Q8 [facility] Last Admin: 04/18/18 14:59 Dose: 40 mg Montelukast Sodium (Singulair) 10 mg PO HS [facility] Last Admin: 04/17/18 22:14 Dose: 10 mg Pantoprazole Sodium (Protonix Ec Tab) 40 mg PO DAILY [facility] Last Admin: 04/18/18 09:03 Dose: 40 mg Quetiapine Fumarate (Seroquel) 25 mg PO BID [facility] Last Admin: 04/18/18 17:21 Dose: 25 mg Fluticasone/Salmeterol (Advair Diskus 500/50) 1 puff INH RQ12 [facility] Last Admin: 04/18/18 08:06 Dose: 1 puff Trazodone HCl (Desyrel) 100 mg PO [facility] Last Admin: 04/17/18 22:13 Dose: 100 mg Zolpidem Tartrate (Ambien) 5 mg PO [facility] Last Admin: 04/17/18 23:00 Dose: Not Given - Labs Labs: 04/18/18 07:55 04/18/18 07:55 PT 11.4 SECONDS (9.7-12.2) 04/15/18 20:12 INR 1.0 04/15/18 20:12 APTT 33 SECONDS (21-34) 04/15/18 20:12 - Constitutional Appears: Well - Head Exam Head Exam: ATRAUMATIC, NORMAL INSPECTION, NORMOCEPHALIC - Eye Exam Eye Exam: EOMI, Normal appearance, PERRL Pupil Exam: NORMAL ACCOMODATION, PERRL - ENT Exam ENT Exam: Mucous Membranes Moist, Normal Exam - Neck Exam Neck Exam: Full ROM, Normal Inspection. absent: Lymphadenopathy - Respiratory Exam Respiratory Exam: Decreased Breath Sounds - Cardiovascular Exam Cardiovascular Exam: REGULAR RHYTHM, +S1, +S2 - GI/Abdominal Exam GI & Abdominal Exam: Soft, Diminished Bowel Sounds - Rectal Exam Rectal Exam: Deferred
--- NOTE | 2018-04-18 19:11 | CP.PCM.PN ---
Subjective - Date & Time of Evaluation Date of Evaluation: 04/18/18 Time of Evaluation: 19:08 - Subjective Subjective: PT ALERT, +COUGH WITH THICK SPUTUM. +ALEXANDER WALKING TO BATHROOM., ROS; OTHERWISE NEG. Objective - Vital Signs/Intake and Output Vital Signs (last 24 hours): Temp Pulse Resp BP Pulse Ox 98.2 F 88 20 113/54 L 91 L 04/18/18 16:00 04/18/18 16:00 04/18/18 16:00 04/18/18 16:00 04/18/18 16:00 Intake and Output: 04/18/18 04/19/18 18:59 06:59 Intake Total 600 Output Total 800 Balance -200 - Medications Medications: Current Medications Albuterol/Ipratropium (Duoneb 3 Mg/0.5 Mg (3 Ml) Ud) 3 ml INH RQ6 [facility] Last Admin: 04/18/18 14:45 Dose: 3 ml Dextrose (Dextrose 50% Inj) 0 ml IV STAT PRN; Protocol PRN Reason: Hypoglycemia Protocol Dextrose (Glutose 15) 0 gm PO ONCE PRN; Protocol PRN Reason: Hypoglycemia Protocol Enoxaparin Sodium (Lovenox) 40 mg SC DAILY [facility] Last Admin: 04/18/18 09:03 Dose: 40 mg Escitalopram Oxalate (Lexapro) 10 mg PO DAILY [facility] Glucagon (Glucagen Diagnostic Kit) 0 mg IM STAT PRN; Protocol PRN Reason: Hypoglycemia Protocol Hydroxyzine HCl (Atarax) 25 mg PO BID PRN PRN Reason: Anxiety Azithromycin (Zithromax 500mg In Ns Addvantage) 500 mg in 250 mls @ 167 mls/hr IVPB Q24H [facility] PRN Reason: Protocol Last Admin: 04/17/18 19:14 Dose: 167 mls/hr Dextrose (Dextrose 5% In Water 1000 Ml) 1,000 mls @ 0 mls/hr IV .Q0M PRN; Protocol; Per Protocol PRN Reason: Hypoglycemia Protocol Insulin Human Regular (Novolin R) 0 unit SC ACHS [facility] PRN Reason: Protocol Last Admin: 04/18/18 17:21 Dose: 3 units Methadone HCl (Methadone) 60 mg PO DAILY [facility] Last Admin: 04/18/18 09:04 Dose: 60 mg Methylprednisolone (Solu-Medrol) 40 mg IV Q8 [facility] Last Admin: 04/18/18 14:59 Dose: 40 mg Montelukast Sodium (Singulair) 10 mg PO [facility] Last Admin: 04/17/18 22:14 Dose: 10 mg Pantoprazole Sodium (Protonix Ec Tab) 40 mg PO DAILY [facility] Last Admin: 04/18/18 09:03 Dose: 40 mg Quetiapine Fumarate (Seroquel) 25 mg PO BID [facility] Last Admin: 04/18/18 17:21 Dose: 25 mg Fluticasone/Salmeterol (Advair Diskus 500/50) 1 puff INH RQ12 [facility] Last Admin: 04/18/18 08:06 Dose: 1 puff Trazodone HCl (Desyrel) 100 mg PO [facility] Last Admin: 04/17/18 22:13 Dose: 100 mg Zolpidem Tartrate (Ambien) 5 mg PO [facility] Last Admin: 04/17/18 23:00 Dose: Not Given - Labs Labs: 04/18/18 07:55 04/18/18 07:55 PT 11.4 SECONDS (9.7-12.2) 04/15/18 20:12 INR 1.0 04/15/18 20:12 APTT 33 SECONDS (21-34) 04/15/18 20:12 - Constitutional Appears: No Acute Distress, Chronically Ill - Head Exam Head Exam: ATRAUMATIC, NORMOCEPHALIC - Eye Exam Eye Exam: absent: Scleral icterus Additional comments: RIGHT EYE PROSTHESIS/ - ENT Exam ENT Exam: Mucous Membranes Moist - Neck Exam Neck Exam: Normal Inspection - Respiratory Exam Respiratory Exam: Decreased Breath Sounds, Prolonged Expiratory Phase, Rhonchi. absent: Accessory Muscle Use, Respiratory Distress - Cardiovascular Exam Cardiovascular Exam: RRR, +S1, +S2 - GI/Abdominal Exam GI & Abdominal Exam: Soft. absent: Tenderness - Rectal Exam Rectal Exam: Deferred - Extremities Exam Extremities Exam: absent: Calf Tenderness, Pedal Edema - Back Exam Back Exam: absent: CVA tenderness (L), CVA tenderness (R) - Neurological Exam Neurological Exam: Alert, Awake, CN II-XII Intact, Oriented x3 - Psychiatric Exam Psychiatric exam: Normal Mood - Skin Skin Exam: absent: Rash Assessment and Plan (1) HTN (hypertension) Status: Acute (2) Diabetes Status: Acute (3) COPD exacerbation Status: Acute (4) Acute bronchitis Status: Acute (5) Methadone dependence Status: Acute (6) Opiate use Status: Acute (7) Tobacco abuse Status: Acute (8) Anxiety Status: Chronic (9) Chronic, continuous use of opioids Status: Chronic (10) IV drug user Status: Chronic - Assessment and Plan (Free Text) Assessment: RESP STATUS NO SIG CHANGE., CONT STEROIDS, CONT NEB BD., ADD MUCOMYST. MONITOR O2 SAT. CXR REVIEWED. AFEBRILE ON AB. PSYCH EVAL NOTED. PROG POOR. DISCUSSED WITH STAFF.
[2018-04-18] MEDS: Acetylcysteine 20% Inhal Soln (4ml) INH SCH (19:37)
[2018-04-18] MEDS: Azithromycin 500mg/250ML NS 500 MG/250 ML BAG IVPB SCH (20:41)
[2018-04-19] MEDS: Albuterol-Ipratrop 3 mg / 0.5 (3 ml) UD INH SCH ×4 (02:55→20:40)
[2018-04-19] MEDS: Acetylcysteine 20% Inhal Soln (4ml) INH SCH ×3 (02:55→13:18)
[2018-04-19] MEDS: MethylPREDNISolone 40 mg Vial IV SCH ×3 (05:41→21:45)
--- NOTE | 2018-04-19 06:02 | CP.PCM.PN ---
Subjective - Date & Time of Evaluation Date of Evaluation: 04/19/18 Time of Evaluation: 06:02 - Subjective Subjective: PGY2 Medicine Note for Dr. Kavya Rico Patient seen and examined this morning at bedside. No acute events overnight. Patient is feeling better with improvement in her breathing. She is still experiencing a productive cough. Her cough is improving and the phlegm is decreasing, but she feels she is has phlegm that she is unable to clear. She is still experiencing mild wheezing at times but is overall better. She is tolerating her diet and she denies any pain. Patient has no other medical concerns at this time. Denies fevers, chills, nausea, vomiting, diarrhea, constipation, chest pain, abdominal pain, numbness or tingling. Objective - Vital Signs/Intake and Output Vital Signs (last 24 hours): Temp Pulse Resp BP Pulse Ox 97.8 F 91 H 20 125/68 91 L 04/18/18 23:45 04/18/18 23:45 04/18/18 23:45 04/18/18 23:45 04/18/18 23:45 Intake and Output: 04/18/18 04/19/18 18:59 06:59 Intake Total 600 Output Total 800 Balance -200 - Medications Medications: Current Medications Acetylcysteine (Acetylcysteine 20%) 4 ml INH RQ6 [facility] Last Admin: 04/19/18 02:55 Dose: Not Given Albuterol/Ipratropium (Duoneb 3 Mg/0.5 Mg (3 Ml) Ud) 3 ml INH RQ6 [facility] Last Admin: 04/19/18 02:55 Dose: Not Given Dextrose (Dextrose 50% Inj) 0 ml IV STAT PRN; Protocol PRN Reason: Hypoglycemia Protocol Dextrose (Glutose 15) 0 gm PO ONCE PRN; Protocol PRN Reason: Hypoglycemia Protocol Enoxaparin Sodium (Lovenox) 40 mg SC DAILY [facility] Last Admin: 04/18/18 09:03 Dose: 40 mg Escitalopram Oxalate (Lexapro) 10 mg PO DAILY [facility] Glucagon (Glucagen Diagnostic Kit) 0 mg IM STAT PRN; Protocol PRN Reason: Hypoglycemia Protocol Hydroxyzine HCl (Atarax) 25 mg PO BID PRN PRN Reason: Anxiety Azithromycin (Zithromax 500mg In Ns Addvantage) 500 mg in 250 mls @ 167 mls/hr IVPB Q24H [facility] PRN Reason: Protocol Last Admin: 04/18/18 20:41 Dose: 167 mls/hr Dextrose (Dextrose 5% In Water 1000 Ml) 1,000 mls @ 0 mls/hr IV .Q0M PRN; Protocol; Per Protocol PRN Reason: Hypoglycemia Protocol Insulin Human Regular (Novolin R) 0 unit SC ACHS [facility] PRN Reason: Protocol Last Admin: 04/18/18 21:25 Dose: Not Given Methadone HCl (Methadone) 60 mg PO DAILY [facility] Last Admin: 04/18/18 09:04 Dose: 60 mg Methylprednisolone (Solu-Medrol) 40 mg IV Q8 [facility] Last Admin: 04/19/18 05:41 Dose: 40 mg Montelukast Sodium (Singulair) 10 mg PO [facility] Last Admin: 04/18/18 21:19 Dose: 10 mg Pantoprazole Sodium (Protonix Ec Tab) 40 mg PO DAILY [facility] Last Admin: 04/18/18 09:03 Dose: 40 mg Quetiapine Fumarate (Seroquel) 25 mg PO BID [facility] Last Admin: 04/18/18 17:21 Dose: 25 mg Fluticasone/Salmeterol (Advair Diskus 500/50) 1 puff INH RQ12 [facility] Last Admin: 04/18/18 19:36 Dose: 1 puff Trazodone HCl (Desyrel) 100 mg PO HS [facility] Last Admin: 04/18/18 21:19 Dose: 100 mg Zolpidem Tartrate (Ambien) 5 mg PO HS [facility] Last Admin: 04/18/18 21:19 Dose: 5 mg - Labs Labs: 04/18/18 07:55 04/18/18 07:55 PT 11.4 SECONDS (9.7-12.2) 04/15/18 20:12 INR 1.0 04/15/18 20:12 APTT 33 SECONDS (21-34) 04/15/18 20:12 - Constitutional Appears: Non-toxic, Chronically Ill - Head Exam Head Exam: NORMOCEPHALIC - Eye Exam Eye Exam: Normal appearance - ENT Exam ENT Exam: Mucous Membranes Moist Additional comments: poor dentition - Neck Exam Neck Exam: absent: Lymphadenopathy - Respiratory Exam Respiratory Exam: Wheezes (mild b/l throughout), NORMAL BREATHING PATTERN. absent: Accessory Muscle Use, Rales, Rhonchi, Respiratory Distress Additional comments: 2L oxygen NC - Cardiovascular Exam Cardiovascular Exam: REGULAR RHYTHM, +S1, +S2 - GI/Abdominal Exam GI & Abdominal Exam: Soft, Normal Bowel Sounds. absent: Distended, Firm, Guarding, Rigid, Tenderness - Extremities Exam Extremities Exam: absent: Calf Tenderness, Pedal Edema - Neurological Exam Neurological Exam: Alert, Awake, Oriented x3 - Psychiatric Exam Psychiatric exam: Normal Affect, Normal Mood - Skin Skin Exam: Dry, Warm Assessment and Plan - Assessment and Plan (Free Text) Plan: COPD exacerbation - improving but still wheezing - Pulm consulted, Dr. Carver - CXR 04/15: * Biapical pleural thickening with upper lobe granulomatous changes. Few scattered nodular densities at the lung apices. * Hyperinflation suggestive for COPD and or emphysematous changes. * Bibasilar breast and nipple shadows. Nodular density at the right lung base may represent nipple shadow. Clinical correlation. * Bilateral hilar prominence. - Pt was afebrile (Tmax 100F) with elevated WBC count on admission - NC prn to maintain O2>92% - Duoneb 3mL INH 16h - Solumedrol 40 mg IVP q8h - Montelukast 10mg PO HS - Advair Diskus 1 puff q12h - Azithromycin 500mg IVPB q24h (started on 04/16) - Started on Acetylcysteine 20% 4mL INH q6h HTN - Currently normal BP. Will continue to monitor Anxiety - Continue home medications * Seroquel 25mg PO BID * Sertraline 50mg PO daily - discontinued * Trazadone 100mg PO HS * Atarax 25mg PO BID prn * started on Lexapro 10mg PO Daily Heroin abuse - Psych consulted, Dr. Reyes * Methadone treatment per psych Prophylaxis - SCDs - Lovenox 40mg SC daily - Protonix 40mg PO daily - Ambien 5mg PO HS All orders and management per Dr. Kavya Rico
[2018-04-19] MEDS: (Novolin R) Insulin Human Regular 100 units/ml vial SC SCH ×4 (07:53→21:36)
[2018-04-19] MEDS: Fluticasone-Salmeterol 500-50mcg Diskus INH SCH ×2 (09:21→20:43)
[2018-04-19] MEDS: Pantoprazole 40 mg EC Tab PO SCH (09:38)
[2018-04-19] MEDS: Enoxaparin 40 mg Syringe SC SCH (09:39)
[2018-04-19 11:29] LABS: BASO % 0.3 % (0.0-2.0); LYMPH # 0.4 K/uL (1.0-4.3); LYMPH % 3.7 % (20.0-40.0); MEAN CELL VOLUME 95.6 fL (81.0-99.0); MEAN CORPUSCULAR HEMOGLOBIN 32.3 pg (27.0-31.0); MEAN CORPUSCULAR HGB CONC 33.8 g/dL (33.0-37.0); MONO # 0.5 K/uL (0.0-0.8); MONO % 5.4 % (0.0-10.0); NEUT # 9.2 K/uL (1.8-7.0); NEUT % 90.6 % (50.0-75.0); PLATELET COUNT 123 K/uL (130-400); RBC 4.02 Mil/uL (3.80-5.20); RED CELL DISTRIBUTION WIDTH 15.2 % (11.5-14.5); WHITE BLOOD COUNT 10.2 K/uL (4.8-10.8)
[2018-04-19 11:52] LABS: ALB/GLOB RATIO 1.3 (1.0-2.1); ALBUMIN 3.2 g/dL (3.5-5.0); ALT/SGPT 78 U/L (9-52); AST/SGOT 20 U/L (14-36); BLOOD UREA NITROGEN 17 mg/dL (7-17); CALCIUM 8.5 mg/dl (8.6-10.4); GFR NON-AFRICAN AMERICAN > 60
[2018-04-19 12:01] LABS: LYMPHOCYTE 6 % (20-40); MONOCYTE 5 % (0-10); NEUTROPHIL 89 % (50-75); PLATELET ESTIMATE SLIGHTLY DECREASED (NORMAL); TOTAL CELLS COUNTED 100
--- NOTE | 2018-04-19 12:36 | PCM.PYCHPN ---
Psychiatric Progress Note - Psychiatric Progress Note Patient seen today, length of contact: 16 min Patient Chief Complaint: "I am better" Problems Identified/Issues Discussed: The pt is seen, chart reviewed, case discussed with staff. Support and psychoeducation given, CBT and UT used briefly No new symptoms reported, improving slowly and needs more time No SEs from medications, risks discussed. After care discussed - Please have her see SW re CRC appointment Medication Change: No Medical Record Reviewed: Yes Mental Status Examination - Cognitive Function Orientation: Person, Place, Situation, Time Memory: Impaired Attention: Poor Concentration: Poor Association: WNL Fund of Knowledge: WNL - Mood Mood: Depressed, Anxious - Affect Affect: Broad - Speech Speech: Appropriate - Formal Thought Process Formal Thought Process: No Impairment - Suicidal Ideation Suicidal Ideation: No - Homicidal Ideation Homicidal Ideation: No Goal/Treatment Plan - Goal/Treatment Plan Need for Continued Stay: Other (medical) Progress Toward Problem(s) and Goals/Treatment Plan: Continue daily methadone 60 mg PO as confirmed by [facility] Gabapentin for augmentation if needed As needed medications Lexapro 10 mg, Atarax 25 mg, and Seroquel 25 mg for anxiety; Desyrel 100 mg and Ambien 5 mgfor sleep All risks, benefits and alternatives of the meds discussed, and the pt agreed and understood. Supportive therapy and psychoeducation Psych will sign off
[2018-04-19] MEDS: Azithromycin 500mg/250ML NS 500 MG/250 ML BAG IVPB SCH (19:41)
--- NOTE | 2018-04-19 19:50 | CP.PCM.PN ---
Subjective - Date & Time of Evaluation Date of Evaluation: 04/19/18 Time of Evaluation: 19:48 - Subjective Subjective: PT FEELS BETTER., +COUGH. LOOSE SPUTUM., LESS SOB. ROS ; OTHERWISE NEG. Objective - Vital Signs/Intake and Output Vital Signs (last 24 hours): Temp Pulse Resp BP Pulse Ox 98.0 F 65 22 112/57 L 94 L 04/19/18 16:00 04/19/18 16:00 04/19/18 16:00 04/19/18 16:00 04/19/18 16:00 Intake and Output: 04/19/18 04/20/18 18:59 06:59 Intake Total 300 Balance 300 - Medications Medications: Current Medications Acetylcysteine (Acetylcysteine 20%) 4 ml INH RQ6 [facility] Last Admin: 04/19/18 13:18 Dose: 4 ml Albuterol/Ipratropium (Duoneb 3 Mg/0.5 Mg (3 Ml) Ud) 3 ml INH RQ6 [facility] Last Admin: 04/19/18 13:19 Dose: 3 ml Dextrose (Dextrose 50% Inj) 0 ml IV STAT PRN; Protocol PRN Reason: Hypoglycemia Protocol Dextrose (Glutose 15) 0 gm PO ONCE PRN; Protocol PRN Reason: Hypoglycemia Protocol Enoxaparin Sodium (Lovenox) 40 mg SC DAILY [facility] Last Admin: 04/19/18 09:39 Dose: 40 mg Escitalopram Oxalate (Lexapro) 10 mg PO DAILY [facility] Last Admin: 04/19/18 09:39 Dose: 10 mg Glucagon (Glucagen Diagnostic Kit) 0 mg IM STAT PRN; Protocol PRN Reason: Hypoglycemia Protocol Hydroxyzine HCl (Atarax) 25 mg PO BID PRN PRN Reason: Anxiety Azithromycin (Zithromax 500mg In Ns Addvantage) 500 mg in 250 mls @ 167 mls/hr IVPB Q24H [facility] PRN Reason: Protocol Last Admin: 04/19/18 19:41 Dose: 167 mls/hr Dextrose (Dextrose 5% In Water 1000 Ml) 1,000 mls @ 0 mls/hr IV .Q0M PRN; Protocol; Per Protocol PRN Reason: Hypoglycemia Protocol Insulin Human Regular (Novolin R) 0 unit SC ACHS [facility] PRN Reason: Protocol Last Admin: 04/19/18 17:37 Dose: 2 units Methadone HCl (Methadone) 60 mg PO DAILY [facility] Last Admin: 04/19/18 09:38 Dose: 60 mg Methylprednisolone (Solu-Medrol) 40 mg IV Q8 [facility] Last Admin: 04/19/18 14:05 Dose: 40 mg Montelukast Sodium (Singulair) 10 mg PO [facility] Last Admin: 04/18/18 21:19 Dose: 10 mg Pantoprazole Sodium (Protonix Ec Tab) 40 mg PO DAILY [facility] Last Admin: 04/19/18 09:38 Dose: 40 mg Quetiapine Fumarate (Seroquel) 25 mg PO BID [facility] Last Admin: 04/19/18 17:37 Dose: 25 mg Fluticasone/Salmeterol (Advair Diskus 500/50) 1 puff INH RQ12 [facility] Last Admin: 04/19/18 09:21 Dose: Not Given Trazodone HCl (Desyrel) 100 mg PO [facility] Last Admin: 04/18/18 21:19 Dose: 100 mg Zolpidem Tartrate (Ambien) 5 mg PO [facility] Last Admin: 04/18/18 21:19 Dose: 5 mg - Labs Labs: 04/19/18 11:22 04/19/18 11:22 PT 11.4 SECONDS (9.7-12.2) 04/15/18 20:12 INR 1.0 04/15/18 20:12 APTT 33 SECONDS (21-34) 04/15/18 20:12 - Constitutional Appears: No Acute Distress, Chronically Ill - Head Exam Head Exam: ATRAUMATIC, NORMOCEPHALIC - Eye Exam Eye Exam: Normal appearance Additional comments: RIGHT EYE PROSTHESIS - ENT Exam ENT Exam: Mucous Membranes Moist - Neck Exam Neck Exam: Normal Inspection - Respiratory Exam Respiratory Exam: Decreased Breath Sounds, Rhonchi. absent: Respiratory Distress - Cardiovascular Exam Cardiovascular Exam: RRR, +S1, +S2 - GI/Abdominal Exam GI & Abdominal Exam: Soft. absent: Tenderness - Rectal Exam Rectal Exam: Deferred - Extremities Exam Extremities Exam: absent: Calf Tenderness, Pedal Edema - Back Exam Back Exam: absent: CVA tenderness (L), CVA tenderness (R) - Neurological Exam Neurological Exam: Alert, Awake, CN II-XII Intact, Oriented x3 - Psychiatric Exam Psychiatric exam: Normal Mood - Skin Skin Exam: absent: Rash Assessment and Plan (1) HTN (hypertension) Status: Acute (2) Diabetes Status: Acute (3) COPD exacerbation Status: Acute (4) Acute bronchitis Status: Acute (5) Methadone dependence Status: Acute (6) Opiate use Status: Acute (7) Tobacco abuse Status: Acute (8) Anxiety Status: Chronic (9) Chronic, continuous use of opioids Status: Chronic (10) IV drug user Status: Chronic - Assessment and Plan (Free Text) Assessment: RESP STATUS SLOW IMPROVEMENT. CONT NEB BD., STEROID TAPER TOLERATED, .CXR REVIEWED., CHECK CT CHEST. MONITOR O2 SAT. PSYCH F/U NOTED. PROG POOR. DISCUSSED WITH STAFF.
--- NOTE | 2018-04-19 21:38 | CP.PCM.PN ---
Subjective - Date & Time of Evaluation Date of Evaluation: 04/19/18 Time of Evaluation: 13:50 - Subjective Subjective: pt seen and examined at bedside remains clinically same Objective - Vital Signs/Intake and Output Vital Signs (last 24 hours): Temp Pulse Resp BP Pulse Ox 98.0 F 65 22 112/57 L 94 L 04/19/18 16:00 04/19/18 16:00 04/19/18 16:00 04/19/18 16:00 04/19/18 16:00 Intake and Output: 04/19/18 04/20/18 18:59 06:59 Intake Total 300 Balance 300 - Medications Medications: Current Medications Acetylcysteine (Acetylcysteine 20%) 4 ml INH RQ6 [facility] Last Admin: 04/19/18 13:18 Dose: 4 ml Albuterol/Ipratropium (Duoneb 3 Mg/0.5 Mg (3 Ml) Ud) 3 ml INH RQ6 [facility] Last Admin: 04/19/18 20:40 Dose: 3 ml Dextrose (Dextrose 50% Inj) 0 ml IV STAT PRN; Protocol PRN Reason: Hypoglycemia Protocol Dextrose (Glutose 15) 0 gm PO ONCE PRN; Protocol PRN Reason: Hypoglycemia Protocol Enoxaparin Sodium (Lovenox) 40 mg SC DAILY [facility] Last Admin: 04/19/18 09:39 Dose: 40 mg Escitalopram Oxalate (Lexapro) 10 mg PO DAILY [facility] Last Admin: 04/19/18 09:39 Dose: 10 mg Glucagon (Glucagen Diagnostic Kit) 0 mg IM STAT PRN; Protocol PRN Reason: Hypoglycemia Protocol Hydroxyzine HCl (Atarax) 25 mg PO BID PRN PRN Reason: Anxiety Azithromycin (Zithromax 500mg In Ns Addvantage) 500 mg in 250 mls @ 167 mls/hr IVPB Q24H [facility] PRN Reason: Protocol Last Admin: 04/19/18 19:41 Dose: 167 mls/hr Dextrose (Dextrose 5% In Water 1000 Ml) 1,000 mls @ 0 mls/hr IV .Q0M PRN; Protocol; Per Protocol PRN Reason: Hypoglycemia Protocol Insulin Human Regular (Novolin R) 0 unit SC ACHS [facility] PRN Reason: Protocol Last Admin: 04/19/18 21:36 Dose: Not Given Methadone HCl (Methadone) 60 mg PO DAILY [facility] Last Admin: 04/19/18 09:38 Dose: 60 mg Methylprednisolone (Solu-Medrol) 40 mg IV Q8 [facility] Last Admin: 04/19/18 14:05 Dose: 40 mg Montelukast Sodium (Singulair) 10 mg PO HS [facility] Last Admin: 04/18/18 21:19 Dose: 10 mg Pantoprazole Sodium (Protonix Ec Tab) 40 mg PO DAILY [facility] Last Admin: 04/19/18 09:38 Dose: 40 mg Quetiapine Fumarate (Seroquel) 25 mg PO BID [facility] Last Admin: 04/19/18 17:37 Dose: 25 mg Fluticasone/Salmeterol (Advair Diskus 500/50) 1 puff INH RQ12 [facility] Last Admin: 04/19/18 20:43 Dose: 1 puff Trazodone HCl (Desyrel) 100 mg PO HS [facility] Last Admin: 04/18/18 21:19 Dose: 100 mg Zolpidem Tartrate (Ambien) 5 mg PO HS [facility] Last Admin: 04/18/18 21:19 Dose: 5 mg - Labs Labs: 04/19/18 11:22 04/19/18 11:22 PT 11.4 SECONDS (9.7-12.2) 04/15/18 20:12 INR 1.0 04/15/18 20:12 APTT 33 SECONDS (21-34) 04/15/18 20:12
[2018-04-20] MEDS: Albuterol-Ipratrop 3 mg / 0.5 (3 ml) UD INH SCH ×4 (01:28→20:02)
[2018-04-20] MEDS: Acetylcysteine 20% Inhal Soln (4ml) INH SCH ×4 (01:28→20:03)
[2018-04-20] MEDS: MethylPREDNISolone 40 mg Vial IV SCH ×3 (05:27→21:28)
--- NOTE | 2018-04-20 07:13 | CP.PCM.PN ---
Subjective - Date & Time of Evaluation Date of Evaluation: 04/20/18 Time of Evaluation: 07:13 - Subjective Subjective: PGY2 Medicine Note for Dr. Kavya Rico Patient seen and examined this morning at bedside. No acute events overnight. Patient is feeling better. She is still coughing and complaining of intermittent wheezing. She is tolerating her diet and she denies any pain. Patient has no other medical concerns at this time. Denies fevers, chills, nausea, vomiting, diarrhea, constipation, chest pain, abdominal pain, numbness or tingling. Objective - Vital Signs/Intake and Output Vital Signs (last 24 hours): Temp Pulse Resp BP Pulse Ox 97.8 F 59 L 20 114/67 93 L 04/19/18 23:30 04/19/18 23:30 04/19/18 23:30 04/19/18 23:30 04/19/18 23:30 - Medications Medications: Current Medications Acetylcysteine (Acetylcysteine 20%) 4 ml INH RQ6 [facility] Last Admin: 04/20/18 01:28 Dose: 4 ml Albuterol/Ipratropium (Duoneb 3 Mg/0.5 Mg (3 Ml) Ud) 3 ml INH RQ6 [facility] Last Admin: 04/20/18 01:28 Dose: 3 ml Dextrose (Dextrose 50% Inj) 0 ml IV STAT PRN; Protocol PRN Reason: Hypoglycemia Protocol Dextrose (Glutose 15) 0 gm PO ONCE PRN; Protocol PRN Reason: Hypoglycemia Protocol Enoxaparin Sodium (Lovenox) 40 mg SC DAILY [facility] Last Admin: 04/19/18 09:39 Dose: 40 mg Escitalopram Oxalate (Lexapro) 10 mg PO DAILY [facility] Last Admin: 04/19/18 09:39 Dose: 10 mg Glucagon (Glucagen Diagnostic Kit) 0 mg IM STAT PRN; Protocol PRN Reason: Hypoglycemia Protocol Hydroxyzine HCl (Atarax) 25 mg PO BID PRN PRN Reason: Anxiety Azithromycin (Zithromax 500mg In Ns Addvantage) 500 mg in 250 mls @ 167 mls/hr IVPB Q24H [facility] PRN Reason: Protocol Last Admin: 04/19/18 19:41 Dose: 167 mls/hr Dextrose (Dextrose 5% In Water 1000 Ml) 1,000 mls @ 0 mls/hr IV .Q0M PRN; Protocol; Per Protocol PRN Reason: Hypoglycemia Protocol Insulin Human Regular (Novolin R) 0 unit SC ACHS [facility] PRN Reason: Protocol Last Admin: 04/19/18 21:36 Dose: Not Given Methadone HCl (Methadone) 60 mg PO DAILY [facility] Last Admin: 04/19/18 09:38 Dose: 60 mg Methylprednisolone (Solu-Medrol) 40 mg IV Q8 [facility] Last Admin: 04/20/18 05:27 Dose: 40 mg Montelukast Sodium (Singulair) 10 mg PO [facility] Last Admin: 04/19/18 21:45 Dose: 10 mg Pantoprazole Sodium (Protonix Ec Tab) 40 mg PO DAILY [facility] Last Admin: 04/19/18 09:38 Dose: 40 mg Quetiapine Fumarate (Seroquel) 25 mg PO BID [facility] Last Admin: 04/19/18 17:37 Dose: 25 mg Fluticasone/Salmeterol (Advair Diskus 500/50) 1 puff INH RQ12 [facility] Last Admin: 04/19/18 20:43 Dose: 1 puff Trazodone HCl (Desyrel) 100 mg PO [facility] Last Admin: 04/19/18 21:45 Dose: 100 mg Zolpidem Tartrate (Ambien) 5 mg PO [facility] Last Admin: 04/19/18 21:45 Dose: 5 mg - Labs Labs: 04/19/18 11:22 04/19/18 11:22 PT 11.4 SECONDS (9.7-12.2) 04/15/18 20:12 INR 1.0 04/15/18 20:12 APTT 33 SECONDS (21-34) 04/15/18 20:12 - Constitutional Appears: Non-toxic, No Acute Distress - Head Exam Head Exam: NORMOCEPHALIC - Eye Exam Eye Exam: Normal appearance - ENT Exam Additional comments: poor dentition - Respiratory Exam Respiratory Exam: Clear to Ausculation Bilateral, NORMAL BREATHING PATTERN. absent: Accessory Muscle Use, Rales, Rhonchi, Wheezes, Respiratory Distress Additional comments: Currently receiving a duoneb treatment at time of the exam - Cardiovascular Exam Cardiovascular Exam: REGULAR RHYTHM, +S1, +S2 - GI/Abdominal Exam GI & Abdominal Exam: Soft. absent: Distended, Firm, Guarding, Rigid, Tenderness - Extremities Exam Extremities Exam: absent: Calf Tenderness, Pedal Edema - Neurological Exam Neurological Exam: Alert, Awake, Oriented x3 - Psychiatric Exam Psychiatric exam: Normal Affect, Normal Mood - Skin Skin Exam: Dry, Warm Assessment and Plan - Assessment and Plan (Free Text) Plan: COPD exacerbation - improving, reports still wheezing - none noted on exam today but patient receiving duoneb treat during exam. Will re-eval later. - Pulm consulted, Dr. Carver - CXR 04/15: * Biapical pleural thickening with upper lobe granulomatous changes. Few scattered nodular densities at the lung apices. * Hyperinflation suggestive for COPD and or emphysematous changes. * Bibasilar breast and nipple shadows. Nodular density at the right lung base may represent nipple shadow. Clinical correlation. * Bilateral hilar prominence. - Chest CT w/ IV only 04/20: * Partially calcified low-density in the region of the posterior inferior thyroid gland, possibly thyroid nodule. * Scarring/atelectatic band in the left upper lobe. Emphysematous changes. * 6 mm irregular nodule at the right upper lobe. 3 mm right apical nodule. According to 2017 Fleischner criteria, if the patient is low risk, CT at 3-6 months is recommended, then consider CT at 18-24 months. If the patient is high risk, CT 3-6 months is recommended, then at 18-24 months. * T8 compression fracture deformity, age indeterminate. - Pt was afebrile (Tmax 100F) with elevated WBC count on admission - NC prn to maintain O2>92% - Duoneb 3mL INH 16h - Solumedrol 40 mg IVP q8h - Montelukast 10mg PO HS - Advair Diskus 1 puff q12h - Azithromycin 500mg IVPB q24h (started on 04/16) - Acetylcysteine 20% 4mL INH q6h HTN - Currently normal BP. - Will continue to monitor Anxiety - Continue home medications * Seroquel 25mg PO BID * Trazadone 100mg PO HS * Atarax 25mg PO BID prn * Lexapro 10mg PO Daily Heroin abuse - Psych consulted, Dr. Reyes * Methadone treatment per psych Prophylaxis - SCDs - Lovenox 40mg SC daily - Protonix 40mg PO daily - Ambien 5mg PO HS DISPO: Patient informed about pulmonary nodule. Will need f/u CT in 3-6 months after dc. Hopeful discharge tomorrow. All orders and management per Dr. Kavya Rico
[2018-04-20] MEDS: (Novolin R) Insulin Human Regular 100 units/ml vial SC SCH ×4 (07:59→22:00)
[2018-04-20 08:00] LABS: BASO % 0.1 % (0.0-2.0); HEMOGLOBIN 13.4 g/dL (11.0-16.0); LYMPH # 0.8 K/uL (1.0-4.3); LYMPH % 8.2 % (20.0-40.0); MEAN CELL VOLUME 94.8 fL (81.0-99.0); MEAN CORPUSCULAR HEMOGLOBIN 32.8 pg (27.0-31.0); MEAN CORPUSCULAR HGB CONC 34.6 g/dL (33.0-37.0); MEAN PLATELET VOLUME 8.9 fL (7.2-11.7); MONO # 0.5 K/uL (0.0-0.8); MONO % 5.7 % (0.0-10.0); NEUT # 7.9 K/uL (1.8-7.0); PLATELET COUNT 124 K/uL (130-400); RBC 4.09 Mil/uL (3.80-5.20); RED CELL DISTRIBUTION WIDTH 14.7 % (11.5-14.5); WHITE BLOOD COUNT 9.2 K/uL (4.8-10.8)
[2018-04-20 08:15] LABS: ALB/GLOB RATIO 1.1 (1.0-2.1); ALT/SGPT 68 U/L (9-52); AST/SGOT 20 U/L (14-36); BLOOD UREA NITROGEN 16 mg/dL (7-17); CALCIUM 8.6 mg/dl (8.6-10.4); GFR NON-AFRICAN AMERICAN > 60
[2018-04-20 08:31] LABS: LYMPHOCYTE 10 % (20-40); MONOCYTE 6 % (0-10); NEUTROPHIL 84 % (50-75); PLATELET ESTIMATE SLIGHTLY DECREASED (NORMAL); TOTAL CELLS COUNTED 100
[2018-04-20] MEDS: Fluticasone-Salmeterol 500-50mcg Diskus INH SCH ×2 (08:31→20:05)
[2018-04-20] MEDS: Pantoprazole 40 mg EC Tab PO SCH (10:33)
[2018-04-20] MEDS: Enoxaparin 40 mg Syringe SC SCH (10:35)
--- NOTE | 2018-04-20 10:58 | CP.PCM.PN ---
Subjective - Date & Time of Evaluation Date of Evaluation: 04/20/18 Time of Evaluation: 10:55 - Subjective Subjective: PT ALERT, STILL SOB. LESS COUGH. ROS; OTHERWISE NEG. Objective - Vital Signs/Intake and Output Vital Signs (last 24 hours): Temp Pulse Resp BP Pulse Ox 98.2 F 57 L 20 139/74 94 L 04/20/18 07:00 04/20/18 07:00 04/20/18 07:00 04/20/18 07:00 04/20/18 07:00 - Medications Medications: Current Medications Acetylcysteine (Acetylcysteine 20%) 4 ml INH RQ6 [facility] Last Admin: 04/20/18 07:39 Dose: Not Given Albuterol/Ipratropium (Duoneb 3 Mg/0.5 Mg (3 Ml) Ud) 3 ml INH RQ6 [facility] Last Admin: 04/20/18 07:37 Dose: 3 ml Dextrose (Dextrose 50% Inj) 0 ml IV STAT PRN; Protocol PRN Reason: Hypoglycemia Protocol Dextrose (Glutose 15) 0 gm PO ONCE PRN; Protocol PRN Reason: Hypoglycemia Protocol Enoxaparin Sodium (Lovenox) 40 mg SC DAILY [facility] Last Admin: 04/20/18 10:35 Dose: 40 mg Escitalopram Oxalate (Lexapro) 10 mg PO DAILY [facility] Last Admin: 04/20/18 10:35 Dose: 10 mg Glucagon (Glucagen Diagnostic Kit) 0 mg IM STAT PRN; Protocol PRN Reason: Hypoglycemia Protocol Hydroxyzine HCl (Atarax) 25 mg PO BID PRN PRN Reason: Anxiety Azithromycin (Zithromax 500mg In Ns Addvantage) 500 mg in 250 mls @ 167 mls/hr IVPB Q24H [facility] PRN Reason: Protocol Last Admin: 04/19/18 19:41 Dose: 167 mls/hr Dextrose (Dextrose 5% In Water 1000 Ml) 1,000 mls @ 0 mls/hr IV .Q0M PRN; Protocol; Per Protocol PRN Reason: Hypoglycemia Protocol Insulin Human Regular (Novolin R) 0 unit SC ACHS [facility] PRN Reason: Protocol Last Admin: 04/20/18 07:59 Dose: 2 units Methadone HCl (Methadone) 60 mg PO DAILY [facility] Last Admin: 04/20/18 10:34 Dose: 60 mg Methylprednisolone (Solu-Medrol) 40 mg IV Q8 [facility] Last Admin: 04/20/18 05:27 Dose: 40 mg Montelukast Sodium (Singulair) 10 mg PO [facility] Last Admin: 04/19/18 21:45 Dose: 10 mg Pantoprazole Sodium (Protonix Ec Tab) 40 mg PO DAILY [facility] Last Admin: 04/20/18 10:33 Dose: 40 mg Quetiapine Fumarate (Seroquel) 25 mg PO BID [facility] Last Admin: 04/20/18 10:35 Dose: 25 mg Fluticasone/Salmeterol (Advair Diskus 500/50) 1 puff INH RQ12 [facility] Last Admin: 04/20/18 08:31 Dose: 1 puff Trazodone HCl (Desyrel) 100 mg PO [facility] Last Admin: 04/19/18 21:45 Dose: 100 mg Zolpidem Tartrate (Ambien) 5 mg PO [facility] Last Admin: 04/19/18 21:45 Dose: 5 mg - Labs Labs: 04/20/18 07:44 04/20/18 07:44 PT 11.4 SECONDS (9.7-12.2) 04/15/18 20:12 INR 1.0 04/15/18 20:12 APTT 33 SECONDS (21-34) 04/15/18 20:12 - Constitutional Appears: Non-toxic, No Acute Distress, Chronically Ill - Head Exam Head Exam: ATRAUMATIC, NORMOCEPHALIC - Eye Exam Eye Exam: absent: Scleral icterus Additional comments: RIGHT EYE PROSTHESIS - ENT Exam ENT Exam: Mucous Membranes Moist - Neck Exam Neck Exam: Normal Inspection - Respiratory Exam Respiratory Exam: Decreased Breath Sounds, Prolonged Expiratory Phase, Rhonchi. absent: Respiratory Distress - Cardiovascular Exam Cardiovascular Exam: RRR, +S1, +S2 - GI/Abdominal Exam GI & Abdominal Exam: Soft. absent: Tenderness - Rectal Exam Rectal Exam: Deferred - Extremities Exam Extremities Exam: absent: Calf Tenderness, Pedal Edema - Back Exam Back Exam: absent: CVA tenderness (L), CVA tenderness (R) - Neurological Exam Neurological Exam: Alert, Awake, CN II-XII Intact, Oriented x3 - Psychiatric Exam Psychiatric exam: Normal Mood - Skin Skin Exam: absent: Rash Assessment and Plan (1) HTN (hypertension) Status: Acute (2) Diabetes Status: Acute (3) COPD exacerbation Status: Acute (4) Acute bronchitis Status: Acute (5) Methadone dependence Status: Acute (6) Opiate use Status: Acute (7) Tobacco abuse Status: Acute (8) Anxiety Status: Chronic (9) Chronic, continuous use of opioids Status: Chronic (10) IV drug user Status: Chronic - Assessment and Plan (Free Text) Assessment: RESP STATUS NO SIG CHANGE. CONT NEB BD., ADVAIR., ON STEROID TAPER., MONITOR O2 SAT. CXR REVIEWED. F/U CT CHEST. INCREASE OOB. AFEBRILE ON AB. PSYCH F/U NOTED. PROG POOR. DISCUSSED WITH STAFF AT LENGTH.
--- NOTE | 2018-04-20 12:16 | CT ---
Date of Service: 04/20/18 CT chest without IV contrast Indication: Nodules Technique: Contiguous axial images were obtained through the chest without intravenous contrast enhancement. Sagittal and coronal reconstructions were generated and reviewed. This CT exam was performed using 1 or more of the following dose reduction techniques: Automated exposure control, adjustment of the MAA and/or kV according to patient size, and/or use of iterative reconstruction technique. Radiation dose (DLP): 207.90 MGy-cm. Comparison: Chest x-ray performed 04/15/18 Findings: Partially calcified low-density in the region of the posterior inferior thyroid gland, possibly thyroid nodule. The unenhanced mediastinal and hilar vascular structures appear grossly unremarkable. The heart appears within normal limits of size. Scarring/atelectatic band in the left upper lobe. Emphysematous changes. 6 mm irregular nodule at the right upper lobe (series 3, image 17). 3 mm right apical nodule (series 3, image 14). Punctate calcified granuloma, left upper lobe. No focal consolidation. No pleural effusion. No pneumothorax. Limited visualization of the noncontrast upper abdomen appears grossly unremarkable. Degenerative changes of the spine. Scoliosis. T8 compression fracture deformity, age indeterminate. Impression: Partially calcified low-density in the region of the posterior inferior thyroid gland, possibly thyroid nodule. Scarring/atelectatic band in the left upper lobe. Emphysematous changes. 6 mm irregular nodule at the right upper lobe. 3 mm right apical nodule. According to 2017 Fleischner criteria, if the patient is low risk, CT at 3-6 months is recommended, then consider CT at 18-24 months. If the patient is high risk, CT 3-6 months is recommended, then at 18-24 months. T8 compression fracture deformity, age indeterminate.
--- NOTE | 2018-04-20 17:32 | CP.PCM.PN ---
Subjective - Date & Time of Evaluation Date of Evaluation: 04/20/18 Time of Evaluation: 11:20 - Subjective Subjective: pt clinically same Objective - Vital Signs/Intake and Output Vital Signs (last 24 hours): Temp Pulse Resp BP Pulse Ox 98.7 F 72 20 119/67 94 L 04/20/18 15:00 04/20/18 15:00 04/20/18 15:00 04/20/18 15:00 04/20/18 15:00 - Medications Medications: Current Medications Acetylcysteine (Acetylcysteine 20%) 4 ml INH RQ6 [facility] Last Admin: 04/20/18 13:28 Dose: Not Given Albuterol/Ipratropium (Duoneb 3 Mg/0.5 Mg (3 Ml) Ud) 3 ml INH RQ6 [facility] Last Admin: 04/20/18 13:28 Dose: 3 ml Dextrose (Dextrose 50% Inj) 0 ml IV STAT PRN; Protocol PRN Reason: Hypoglycemia Protocol Dextrose (Glutose 15) 0 gm PO ONCE PRN; Protocol PRN Reason: Hypoglycemia Protocol Enoxaparin Sodium (Lovenox) 40 mg SC DAILY [facility] Last Admin: 04/20/18 10:35 Dose: 40 mg Escitalopram Oxalate (Lexapro) 10 mg PO DAILY [facility] Last Admin: 04/20/18 10:35 Dose: 10 mg Glucagon (Glucagen Diagnostic Kit) 0 mg IM STAT PRN; Protocol PRN Reason: Hypoglycemia Protocol Hydroxyzine HCl (Atarax) 25 mg PO BID PRN PRN Reason: Anxiety Azithromycin (Zithromax 500mg In Ns Addvantage) 500 mg in 250 mls @ 167 mls/hr IVPB Q24H [facility] PRN Reason: Protocol Last Admin: 04/19/18 19:41 Dose: 167 mls/hr Dextrose (Dextrose 5% In Water 1000 Ml) 1,000 mls @ 0 mls/hr IV .Q0M PRN; Protocol; Per Protocol PRN Reason: Hypoglycemia Protocol Insulin Human Regular (Novolin R) 0 unit SC ACHS [facility] PRN Reason: Protocol Last Admin: 04/20/18 12:30 Dose: 4 units Methadone HCl (Methadone) 60 mg PO DAILY [facility] Last Admin: 04/20/18 10:34 Dose: 60 mg Methylprednisolone (Solu-Medrol) 40 mg IV Q8 [facility] Last Admin: 04/20/18 13:03 Dose: 40 mg Montelukast Sodium (Singulair) 10 mg PO HS [facility] Last Admin: 04/19/18 21:45 Dose: 10 mg Pantoprazole Sodium (Protonix Ec Tab) 40 mg PO DAILY [facility] Last Admin: 04/20/18 10:33 Dose: 40 mg Quetiapine Fumarate (Seroquel) 25 mg PO BID [facility] Last Admin: 04/20/18 10:35 Dose: 25 mg Fluticasone/Salmeterol (Advair Diskus 500/50) 1 puff INH RQ12 [facility] Last Admin: 04/20/18 08:31 Dose: 1 puff Trazodone HCl (Desyrel) 100 mg PO HS [facility] Last Admin: 04/19/18 21:45 Dose: 100 mg Zolpidem Tartrate (Ambien) 5 mg PO HS [facility] Last Admin: 04/19/18 21:45 Dose: 5 mg - Labs Labs: 04/20/18 07:44 04/20/18 07:44 PT 11.4 SECONDS (9.7-12.2) 04/15/18 20:12 INR 1.0 04/15/18 20:12 APTT 33 SECONDS (21-34) 04/15/18 20:12
[2018-04-20] MEDS: Azithromycin 500mg/250ML NS 500 MG/250 ML BAG IVPB SCH (21:29)
[2018-04-21] MEDS: Albuterol-Ipratrop 3 mg / 0.5 (3 ml) UD INH SCH (01:41)
[2018-04-21] MEDS: Acetylcysteine 20% Inhal Soln (4ml) INH SCH ×4 (01:41→19:27)
[2018-04-21] MEDS: MethylPREDNISolone 40 mg Vial IV SCH ×3 (05:42→21:55)
[2018-04-21 07:28] LABS: BASO % 0.1 % (0.0-2.0); HEMOGLOBIN 13.5 g/dL (11.0-16.0); LYMPH # 0.8 K/uL (1.0-4.3); LYMPH % 7.4 % (20.0-40.0); MEAN CELL VOLUME 95.6 fL (81.0-99.0); MEAN CORPUSCULAR HEMOGLOBIN 32.7 pg (27.0-31.0); MEAN CORPUSCULAR HGB CONC 34.2 g/dL (33.0-37.0); MEAN PLATELET VOLUME 8.9 fL (7.2-11.7); MONO # 0.6 K/uL (0.0-0.8); MONO % 5.2 % (0.0-10.0); NEUT # 9.3 K/uL (1.8-7.0); NEUT % 87.3 % (50.0-75.0); PLATELET COUNT 141 K/uL (130-400); RBC 4.14 Mil/uL (3.80-5.20); RED CELL DISTRIBUTION WIDTH 15.2 % (11.5-14.5); WHITE BLOOD COUNT 10.7 K/uL (4.8-10.8)
[2018-04-21 07:39] LABS: ALB/GLOB RATIO 1.3 (1.0-2.1); ALT/SGPT 56 U/L (9-52); AST/SGOT 16 U/L (14-36); BLOOD UREA NITROGEN 15 mg/dL (7-17); CALCIUM 8.2 mg/dl (8.6-10.4); GFR NON-AFRICAN AMERICAN > 60
[2018-04-21] MEDS: (Novolin R) Insulin Human Regular 100 units/ml vial SC SCH ×4 (07:52→21:58)
[2018-04-21] MEDS: Fluticasone-Salmeterol 500-50mcg Diskus INH SCH ×2 (07:54→19:27)
[2018-04-21] MEDS: Enoxaparin 40 mg Syringe SC SCH (09:43)
[2018-04-21] MEDS: Pantoprazole 40 mg EC Tab PO SCH (09:44)
[2018-04-21 09:54] LABS: BANDS 1 % (0-2); LYMPHOCYTE 11 % (20-40); MONOCYTE 5 % (0-10); NEUTROPHIL 83 % (50-75); PLATELET ESTIMATE NORMAL (NORMAL); TOTAL CELLS COUNTED 100
--- NOTE | 2018-04-21 17:16 | CP.PCM.PN ---
Subjective - Date & Time of Evaluation Date of Evaluation: 04/21/18 Time of Evaluation: 09:16 - Subjective Subjective: PGY2 Medicine Note for Dr. Kavya Rico Patient seen and examined this morning at bedside. No acute events overnight. Patient is continuing to feel better. Her cough is improving. She is unsure how far she is able to walk without becoming short of breath. She is tolerating her diet and she denies any pain. Patient has no other medical complaints at this time. Denies fevers, chills, nausea, vomiting, diarrhea, constipation, chest pain, abdominal pain, numbness or tingling. Objective - Vital Signs/Intake and Output Vital Signs (last 24 hours): Temp Pulse Resp BP Pulse Ox 98.4 F 58 L 20 128/70 95 04/21/18 15:00 04/21/18 15:00 04/21/18 15:00 04/21/18 15:00 04/21/18 15:00 Intake and Output: 04/21/18 04/21/18 06:59 18:59 Intake Total 120 350 Output Total 500 Balance -380 350 - Medications Medications: Current Medications Acetylcysteine (Acetylcysteine 20%) 4 ml INH RQ6 [facility] Last Admin: 04/21/18 07:55 Dose: Not Given Azithromycin (Zithromax) 500 mg PO Q24H [facility] Dextrose (Dextrose 50% Inj) 0 ml IV STAT PRN; Protocol PRN Reason: Hypoglycemia Protocol Dextrose (Glutose 15) 0 gm PO ONCE PRN; Protocol PRN Reason: Hypoglycemia Protocol Enoxaparin Sodium (Lovenox) 40 mg SC DAILY [facility] Last Admin: 04/21/18 09:43 Dose: 40 mg Escitalopram Oxalate (Lexapro) 10 mg PO DAILY [facility] Last Admin: 04/21/18 09:43 Dose: 10 mg Glucagon (Glucagen Diagnostic Kit) 0 mg IM STAT PRN; Protocol PRN Reason: Hypoglycemia Protocol Hydroxyzine HCl (Atarax) 25 mg PO BID PRN PRN Reason: Anxiety Dextrose (Dextrose 5% In Water 1000 Ml) 1,000 mls @ 0 mls/hr IV .Q0M PRN; Protocol; Per Protocol PRN Reason: Hypoglycemia Protocol Insulin Human Regular (Novolin R) 0 unit SC ACHS [facility] PRN Reason: Protocol Last Admin: 04/21/18 12:14 Dose: 4 units Methadone HCl (Methadone) 60 mg PO DAILY [facility] Last Admin: 04/21/18 09:43 Dose: 60 mg Methylprednisolone (Solu-Medrol) 40 mg IV Q8 [facility] Last Admin: 04/21/18 13:19 Dose: 40 mg Montelukast Sodium (Singulair) 10 mg PO HS [facility] Last Admin: 04/20/18 21:28 Dose: 10 mg Pantoprazole Sodium (Protonix Ec Tab) 40 mg PO DAILY [facility] Last Admin: 04/21/18 09:44 Dose: 40 mg Quetiapine Fumarate (Seroquel) 25 mg PO BID [facility] Last Admin: 04/21/18 09:43 Dose: 25 mg Fluticasone/Salmeterol (Advair Diskus 500/50) 1 puff INH RQ12 [facility] Last Admin: 04/21/18 07:54 Dose: 1 puff Trazodone HCl (Desyrel) 100 mg PO [facility] Last Admin: 04/20/18 21:27 Dose: 100 mg Zolpidem Tartrate (Ambien) 5 mg PO [facility] Last Admin: 04/20/18 21:27 Dose: 5 mg - Labs Labs: 04/21/18 07:08 04/21/18 07:08 PT 11.4 SECONDS (9.7-12.2) 04/15/18 20:12 INR 1.0 04/15/18 20:12 APTT 33 SECONDS (21-34) 04/15/18 20:12 Assessment and Plan - Assessment and Plan (Free Text) Plan: - Constitutional Appears: Non-toxic, No Acute Distress - Head Exam Head Exam: NORMOCEPHALIC - Eye Exam Eye Exam: Normal appearance - Respiratory Exam Respiratory Exam: Clear to Ausculation Bilateral, NORMAL BREATHING PATTERN. absent: Accessory Muscle Use, Rales, Rhonchi, Wheezes, Respiratory Distress - Cardiovascular Exam Cardiovascular Exam: REGULAR RHYTHM, +S1, +S2 - GI/Abdominal Exam GI & Abdominal Exam: Soft. absent: Distended, Firm, Guarding, Rigid, Tenderness - Extremities Exam Extremities Exam: absent: Calf Tenderness, Pedal Edema - Neurological Exam Neurological Exam: Alert, Awake, Oriented x3 - Psychiatric Exam Psychiatric exam: Normal Affect, Normal Mood - Skin Skin Exam: Dry, Warm Assessment and Plan - Assessment and Plan (Free Text) Plan: COPD exacerbation - improving - Pulm consulted, Dr. Carver - CXR 04/15: * Biapical pleural thickening with upper lobe granulomatous changes. Few scattered nodular densities at the lung apices. * Hyperinflation suggestive for COPD and or emphysematous changes. * Bibasilar breast and nipple shadows. Nodular density at the right lung base may represent nipple shadow. Clinical correlation. * Bilateral hilar prominence. - Chest CT w/ IV only 04/20: * Partially calcified low-density in the region of the posterior inferior thyroid gland, possibly thyroid nodule. * Scarring/atelectatic band in the left upper lobe. Emphysematous changes. * 6 mm irregular nodule at the right upper lobe. 3 mm right apical nodule. According to 2017 Fleischner criteria, if the patient is low risk, CT at 3-6 months is recommended, then consider CT at 18-24 months. If the patient is high risk, CT 3-6 months is recommended, then at 18-24 months. * T8 compression fracture deformity, age indeterminate. - Pt was afebrile (Tmax 100F) with elevated WBC count on admission - NC prn to maintain O2>92% - Duoneb 3mL INH 16h - Solumedrol 40 mg IVP q8h - Montelukast 10mg PO HS - Advair Diskus 1 puff q12h - Azithromycin 500mg IVPB q24h (started on 04/16) - Acetylcysteine 20% 4mL INH q6h HTN - Currently normal BP. - Will continue to monitor Anxiety - Continue home medications * Seroquel 25mg PO BID * Trazadone 100mg PO HS * Atarax 25mg PO BID prn * Lexapro 10mg PO Daily Heroin abuse - Psych consulted, Dr. Reyes * Methadone treatment per psych Prophylaxis - SCDs - Lovenox 40mg SC daily - Protonix 40mg PO daily - Ambien 5mg PO HS - PT eval/treat DISPO: Patient informed about pulmonary nodule yesterday. Will need f/u CT in 3- 6 months after dc. Hopeful discharge tomorrow after PT eval. Patient has home oxygen and may need portable o2 to make it home. All orders and management per Dr. Kavya Rico
--- NOTE | 2018-04-21 18:11 | CP.PCM.PN ---
Subjective - Date & Time of Evaluation Date of Evaluation: 04/21/18 Time of Evaluation: 18:11 - Subjective Subjective: PT FEELS OK. +COUGH. ROS; OTHERWISE NEG Objective - Vital Signs/Intake and Output Vital Signs (last 24 hours): Temp Pulse Resp BP Pulse Ox 98.4 F 58 L 20 128/70 95 04/21/18 15:00 04/21/18 15:00 04/21/18 15:00 04/21/18 15:00 04/21/18 15:00 Intake and Output: 04/21/18 04/21/18 06:59 18:59 Intake Total 120 350 Output Total 500 Balance -380 350 - Medications Medications: Current Medications Acetylcysteine (Acetylcysteine 20%) 4 ml INH RQ6 [facility] Last Admin: 04/21/18 07:55 Dose: Not Given Azithromycin (Zithromax) 500 mg PO Q24H [facility] Dextrose (Dextrose 50% Inj) 0 ml IV STAT PRN; Protocol PRN Reason: Hypoglycemia Protocol Dextrose (Glutose 15) 0 gm PO ONCE PRN; Protocol PRN Reason: Hypoglycemia Protocol Enoxaparin Sodium (Lovenox) 40 mg SC DAILY [facility] Last Admin: 04/21/18 09:43 Dose: 40 mg Escitalopram Oxalate (Lexapro) 10 mg PO DAILY [facility] Last Admin: 04/21/18 09:43 Dose: 10 mg Glucagon (Glucagen Diagnostic Kit) 0 mg IM STAT PRN; Protocol PRN Reason: Hypoglycemia Protocol Hydroxyzine HCl (Atarax) 25 mg PO BID PRN PRN Reason: Anxiety Dextrose (Dextrose 5% In Water 1000 Ml) 1,000 mls @ 0 mls/hr IV .Q0M PRN; Protocol; Per Protocol PRN Reason: Hypoglycemia Protocol Insulin Human Regular (Novolin R) 0 unit SC ACHS [facility] PRN Reason: Protocol Last Admin: 04/21/18 17:31 Dose: Not Given Methadone HCl (Methadone) 60 mg PO DAILY [facility] Last Admin: 04/21/18 09:43 Dose: 60 mg Methylprednisolone (Solu-Medrol) 40 mg IV Q8 [facility] Last Admin: 04/21/18 13:19 Dose: 40 mg Montelukast Sodium (Singulair) 10 mg PO HS [facility] Last Admin: 04/20/18 21:28 Dose: 10 mg Pantoprazole Sodium (Protonix Ec Tab) 40 mg PO DAILY [facility] Last Admin: 04/21/18 09:44 Dose: 40 mg Quetiapine Fumarate (Seroquel) 25 mg PO BID [facility] Last Admin: 04/21/18 17:51 Dose: 25 mg Fluticasone/Salmeterol (Advair Diskus 500/50) 1 puff INH RQ12 [facility] Last Admin: 04/21/18 07:54 Dose: 1 puff Trazodone HCl (Desyrel) 100 mg PO HS [facility] Last Admin: 04/20/18 21:27 Dose: 100 mg Zolpidem Tartrate (Ambien) 5 mg PO HS [facility] Last Admin: 04/20/18 21:27 Dose: 5 mg - Labs Labs: 04/21/18 07:08 04/21/18 07:08 PT 11.4 SECONDS (9.7-12.2) 04/15/18 20:12 INR 1.0 04/15/18 20:12 APTT 33 SECONDS (21-34) 04/15/18 20:12 - Constitutional Appears: No Acute Distress, Chronically Ill - Head Exam Head Exam: ATRAUMATIC, NORMOCEPHALIC - Eye Exam Additional comments: RIGHT EYE PROSTHESIS - ENT Exam ENT Exam: Mucous Membranes Moist - Neck Exam Neck Exam: Normal Inspection - Respiratory Exam Respiratory Exam: Decreased Breath Sounds, Rhonchi. absent: Accessory Muscle Use, Respiratory Distress - Cardiovascular Exam Cardiovascular Exam: RRR, +S1, +S2 - GI/Abdominal Exam GI & Abdominal Exam: Soft. absent: Tenderness - Rectal Exam Rectal Exam: Deferred - Extremities Exam Extremities Exam: absent: Calf Tenderness, Pedal Edema - Back Exam Back Exam: absent: CVA tenderness (L), CVA tenderness (R) - Neurological Exam Neurological Exam: Alert, Awake, CN II-XII Intact, Oriented x3 - Psychiatric Exam Psychiatric exam: Normal Mood - Skin Skin Exam: absent: Rash Assessment and Plan (1) HTN (hypertension) Status: Acute (2) Diabetes Status: Acute (3) COPD exacerbation Status: Acute (4) Acute bronchitis Status: Acute (5) Methadone dependence Status: Acute (6) Opiate use Status: Acute (7) Tobacco abuse Status: Acute (8) Anxiety Status: Chronic (9) Chronic, continuous use of opioids Status: Chronic (10) IV drug user Status: Chronic - Assessment and Plan (Free Text) Assessment: RESP STATUS NO SIG CHANGE., CONT NEB BD., STEROIDS, MONITOR O2 SAT. CXR REVIEWED. AFEBRILE ON AB. INCREASE OOB. PROG POOR. DISCUSSED WITH STAFF.
[2018-04-22] MEDS: Acetylcysteine 20% Inhal Soln (4ml) INH SCH ×2 (01:41→08:38)
[2018-04-22] MEDS: MethylPREDNISolone 40 mg Vial IV SCH ×2 (05:15→13:44)
[2018-04-22] MEDS ORDERED: Aluminum Hydroxide/Magnesium Hydroxide Susp (30 mL) PO ONE (06:00)
[2018-04-22 08:01] VITALS: RESP 18
[2018-04-22] MEDS: (Novolin R) Insulin Human Regular 100 units/ml vial SC SCH ×3 (08:11→17:38)
[2018-04-22 08:20] LABS: BASO % 0.1 % (0.0-2.0); HEMOGLOBIN 14.5 g/dL (11.0-16.0); LYMPH # 0.7 K/uL (1.0-4.3); LYMPH % 5.8 % (20.0-40.0); MEAN CORPUSCULAR HEMOGLOBIN 32.9 pg (27.0-31.0); MEAN CORPUSCULAR HGB CONC 34.6 g/dL (33.0-37.0); MEAN PLATELET VOLUME 8.6 fL (7.2-11.7); MONO # 0.6 K/uL (0.0-0.8); MONO % 4.9 % (0.0-10.0); NEUT # 10.7 K/uL (1.8-7.0); NEUT % 89.2 % (50.0-75.0); NRBC % 0.1 % (0.0-2.0); PLATELET COUNT 150 K/uL (130-400); RBC 4.41 Mil/uL (3.80-5.20); RED CELL DISTRIBUTION WIDTH 15.2 % (11.5-14.5)
[2018-04-22] MEDS: Fluticasone-Salmeterol 500-50mcg Diskus INH SCH (08:38)
[2018-04-22 08:45] LABS: ALB/GLOB RATIO 1.1 (1.0-2.1); ALBUMIN 3.1 g/dL (3.5-5.0); ALT/SGPT 57 U/L (9-52); AST/SGOT 19 U/L (14-36); BLOOD UREA NITROGEN 17 mg/dL (7-17); CALCIUM 8.4 mg/dl (8.6-10.4); GFR NON-AFRICAN AMERICAN > 60
--- NOTE | 2018-04-22 09:30 | CP.PCM.PN ---
Subjective - Date & Time of Evaluation Date of Evaluation: 04/22/18 Time of Evaluation: 11:39 - Subjective Subjective: PGY 3 Med Note- Dr. Nicki Rico's service Patient seen and examined in no apparent acute distress. Patient anticipating discharge to home. Patient states that she does not like the taste of the food. She does admit to having an appetite but would rather have some cake . Patient denies subjective fevers or chills at this time. Objective - Vital Signs/Intake and Output Vital Signs (last 24 hours): Temp Pulse Resp BP Pulse Ox 98.2 F 53 L 18 130/77 94 L 04/22/18 07:00 04/22/18 07:00 04/22/18 07:00 04/22/18 07:00 04/22/18 07:00 - Medications Medications: Current Medications Acetylcysteine (Acetylcysteine 20%) 4 ml INH RQ6 [facility] Last Admin: 04/22/18 08:38 Dose: Not Given Azithromycin (Zithromax) 500 mg PO Q24H [facility] Last Admin: 04/21/18 19:59 Dose: 500 mg Dextrose (Dextrose 50% Inj) 0 ml IV STAT PRN; Protocol PRN Reason: Hypoglycemia Protocol Dextrose (Glutose 15) 0 gm PO ONCE PRN; Protocol PRN Reason: Hypoglycemia Protocol Enoxaparin Sodium (Lovenox) 40 mg SC DAILY [facility] Last Admin: 04/21/18 09:43 Dose: 40 mg Escitalopram Oxalate (Lexapro) 10 mg PO DAILY [facility] Last Admin: 04/21/18 09:43 Dose: 10 mg Glucagon (Glucagen Diagnostic Kit) 0 mg IM STAT PRN; Protocol PRN Reason: Hypoglycemia Protocol Hydroxyzine HCl (Atarax) 25 mg PO BID PRN PRN Reason: Anxiety Dextrose (Dextrose 5% In Water 1000 Ml) 1,000 mls @ 0 mls/hr IV .Q0M PRN; Protocol; Per Protocol PRN Reason: Hypoglycemia Protocol Insulin Human Regular (Novolin R) 0 unit SC ACHS [facility] PRN Reason: Protocol Last Admin: 04/22/18 08:11 Dose: Not Given Methadone HCl (Methadone) 60 mg PO DAILY [facility] Last Admin: 04/21/18 09:43 Dose: 60 mg Methylprednisolone (Solu-Medrol) 40 mg IV Q8 [facility] Last Admin: 04/22/18 05:15 Dose: 40 mg Montelukast Sodium (Singulair) 10 mg PO [facility] Last Admin: 04/21/18 21:56 Dose: 10 mg Pantoprazole Sodium (Protonix Ec Tab) 40 mg PO DAILY [facility] Last Admin: 04/21/18 09:44 Dose: 40 mg Quetiapine Fumarate (Seroquel) 25 mg PO BID [facility] Last Admin: 04/21/18 17:51 Dose: 25 mg Fluticasone/Salmeterol (Advair Diskus 500/50) 1 puff INH RQ12 [facility] Last Admin: 04/22/18 08:38 Dose: 1 puff Trazodone HCl (Desyrel) 100 mg PO [facility] Last Admin: 04/21/18 21:55 Dose: 100 mg Zolpidem Tartrate (Ambien) 5 mg PO [facility] Last Admin: 04/21/18 21:55 Dose: 5 mg - Labs Labs: 04/22/18 08:06 04/22/18 08:06 PT 11.4 SECONDS (9.7-12.2) 04/15/18 20:12 INR 1.0 04/15/18 20:12 APTT 33 SECONDS (21-34) 04/15/18 20:12 - Constitutional Appears: Non-toxic, No Acute Distress - Head Exam Head Exam: NORMAL INSPECTION, NORMOCEPHALIC - Eye Exam Eye Exam: Normal appearance, PERRL. absent: EOMI (lateral eye deviation ( right )) Pupil Exam: NORMAL ACCOMODATION, PERRL - ENT Exam ENT Exam: Mucous Membranes Moist, Normal Exam - Neck Exam Neck Exam: Full ROM - Respiratory Exam Respiratory Exam: NORMAL BREATHING PATTERN - Cardiovascular Exam Cardiovascular Exam: +S1, +S2 - GI/Abdominal Exam GI & Abdominal Exam: Soft, Normal Bowel Sounds - Extremities Exam Extremities Exam: Full ROM - Back Exam Back Exam: Full ROM - Neurological Exam Neurological Exam: Alert, Awake, Normal Gait - Psychiatric Exam Psychiatric exam: Normal Affect, Normal Mood - Skin Skin Exam: Dry, Normal Color, Warm Assessment and Plan - Assessment and Plan (Free Text) Assessment: COPD exacerbation - improving - Pulm consulted, Dr. Carver. F/U recommendations - CXR 04/15: * Biapical pleural thickening with upper lobe granulomatous changes. Few scattered nodular densities at the lung apices. * Hyperinflation suggestive for COPD and or emphysematous changes. * Bibasilar breast and nipple shadows. Nodular density at the right lung base may represent nipple shadow. Clinical correlation. * Bilateral hilar prominence. - Chest CT w/ IV only 04/19: * Partially calcified low-density in the region of the posterior inferior thyroid gland, possibly thyroid nodule. * Scarring/atelectatic band in the left upper lobe. Emphysematous changes. * 6 mm irregular nodule at the right upper lobe. 3 mm right apical nodule. According to 2017 Fleischner criteria, if the patient is low risk, CT at 3-6 months is recommended, then consider CT at 18-24 months. If the patient is high risk, CT 3-6 months is recommended, then at 18-24 months. * T8 compression fracture deformity, age indeterminate. - NC prn to maintain O2>92% - Duoneb 3mL INH 16h - Solumedrol 40 mg IVP Q8H - Montelukast 10mg PO HS - Advair Diskus 1 puff Q12h - Azithromycin 500mg IVPB q24h (started on 04/16) - Acetylcysteine 20% 4mL INH q6h -Monitor HTN - Normotensive - Will continue to monitor Anxiety - Continue home medications * Seroquel 25mg PO BID * Trazadone 100mg PO HS * Atarax 25mg PO BID prn * Lexapro 10mg PO Daily * Psych supportive therapy * F/U Psych recs Heroin abuse - Psych consulted, Dr. Reyes * Methadone treatment per psych. * Patient has been on 60 mg Methadone for the past 3 months. Advise continued outpatient therapy. * Cessation counseling Prophylaxis - SCDs - Lovenox 40mg SC daily - Protonix 40mg PO daily - PT eval/treat DISPO: Patient informed about pulmonary nodule yesterday. Will need f/u CT in 3- 6 months after discharge. PT eval-. Patient has home oxygen and tolerated session today. Of note- patient is in need of oxygen if she walks more than 80ft. Thus, recommendations for wheelchair transport downstairs. Discharge instructions Patient is medically stable for discharge home. Patient to follow up with primary medical doctor within one week. New medications: Azithromycin Z candace Medrol Dose pack Escitalopram to be prescribed. Patient should follow up with Methadone rehabilitation services for continued outpatient regiment. Patient to continue home medications as indicated. If symptoms return, go to the emergency room. Instructions explained to patient who is aware. Please take care and be well. Discussed with attending. All orders and management per Dr. Kavya Rico
[2018-04-22] MEDS: Pantoprazole 40 mg EC Tab PO SCH (10:01)
[2018-04-22] MEDS: Enoxaparin 40 mg Syringe SC SCH (10:02)
[2018-04-22 10:49] LABS: BANDS 1 % (0-2); LYMPHOCYTE 7 % (20-40); MONOCYTE 4 % (0-10); NEUTROPHIL 88 % (50-75); PLATELET ESTIMATE NORMAL (NORMAL); TOTAL CELLS COUNTED 100
[2018-04-22 10:50] LABS: ANISOCYTOSIS SLIGHT
--- NOTE | 2018-04-22 14:34 | CP.PCM.PN ---
Subjective - Date & Time of Evaluation Date of Evaluation: 04/22/18 Time of Evaluation: 14:31 - Subjective Subjective: PT WEAK., STILL IN BED. +ALEXANDER NO CHANGE. ROS ; OTHERWISE NEG. Objective - Vital Signs/Intake and Output Vital Signs (last 24 hours): Temp Pulse Resp BP Pulse Ox 98.2 F 53 L 18 130/77 94 L 04/22/18 07:00 04/22/18 07:00 04/22/18 07:00 04/22/18 07:00 04/22/18 07:00 - Medications Medications: Current Medications Acetylcysteine (Acetylcysteine 20%) 4 ml INH RQ6 [facility] Last Admin: 04/22/18 08:38 Dose: Not Given Azithromycin (Zithromax) 500 mg PO Q24H [facility] Last Admin: 04/21/18 19:59 Dose: 500 mg Dextrose (Dextrose 50% Inj) 0 ml IV STAT PRN; Protocol PRN Reason: Hypoglycemia Protocol Dextrose (Glutose 15) 0 gm PO ONCE PRN; Protocol PRN Reason: Hypoglycemia Protocol Enoxaparin Sodium (Lovenox) 40 mg SC DAILY [facility] Last Admin: 04/22/18 10:02 Dose: 40 mg Escitalopram Oxalate (Lexapro) 10 mg PO DAILY [facility] Last Admin: 04/22/18 10:02 Dose: 10 mg Glucagon (Glucagen Diagnostic Kit) 0 mg IM STAT PRN; Protocol PRN Reason: Hypoglycemia Protocol Hydroxyzine HCl (Atarax) 25 mg PO BID PRN PRN Reason: Anxiety Dextrose (Dextrose 5% In Water 1000 Ml) 1,000 mls @ 0 mls/hr IV .Q0M PRN; Protocol; Per Protocol PRN Reason: Hypoglycemia Protocol Insulin Human Regular (Novolin R) 0 unit SC ACHS [facility] PRN Reason: Protocol Last Admin: 04/22/18 11:45 Dose: 4 units Methadone HCl (Methadone) 60 mg PO DAILY [facility] Last Admin: 04/22/18 10:01 Dose: 60 mg Methylprednisolone (Solu-Medrol) 40 mg IV Q8 [facility] Last Admin: 04/22/18 13:44 Dose: 40 mg Montelukast Sodium (Singulair) 10 mg PO HS [facility] Last Admin: 04/21/18 21:56 Dose: 10 mg Pantoprazole Sodium (Protonix Ec Tab) 40 mg PO DAILY [facility] Last Admin: 04/22/18 10:01 Dose: 40 mg Quetiapine Fumarate (Seroquel) 25 mg PO BID [facility] Last Admin: 04/22/18 10:01 Dose: 25 mg Fluticasone/Salmeterol (Advair Diskus 500/50) 1 puff INH RQ12 [facility] Last Admin: 04/22/18 08:38 Dose: 1 puff Trazodone HCl (Desyrel) 100 mg PO [facility] Last Admin: 04/21/18 21:55 Dose: 100 mg Zolpidem Tartrate (Ambien) 5 mg PO [facility] Last Admin: 04/21/18 21:55 Dose: 5 mg - Labs Labs: 04/22/18 08:06 04/22/18 08:06 PT 11.4 SECONDS (9.7-12.2) 04/15/18 20:12 INR 1.0 04/15/18 20:12 APTT 33 SECONDS (21-34) 04/15/18 20:12 - Constitutional Appears: No Acute Distress, Chronically Ill - Head Exam Head Exam: ATRAUMATIC, NORMOCEPHALIC - Eye Exam Additional comments: RIGHT EYE PROSTHESIS. - ENT Exam ENT Exam: Mucous Membranes Moist - Neck Exam Neck Exam: Normal Inspection - Respiratory Exam Respiratory Exam: Decreased Breath Sounds, Prolonged Expiratory Phase, Rhonchi. absent: Accessory Muscle Use, Respiratory Distress - Cardiovascular Exam Cardiovascular Exam: RRR, +S1, +S2 - GI/Abdominal Exam GI & Abdominal Exam: Soft. absent: Tenderness - Rectal Exam Rectal Exam: Deferred - Extremities Exam Extremities Exam: absent: Calf Tenderness, Pedal Edema - Back Exam Back Exam: absent: CVA tenderness (L), CVA tenderness (R) - Neurological Exam Neurological Exam: Alert, Awake, CN II-XII Intact, Oriented x3 - Psychiatric Exam Psychiatric exam: Normal Mood - Skin Skin Exam: absent: Rash Assessment and Plan (1) HTN (hypertension) Status: Acute (2) Diabetes Status: Acute (3) COPD exacerbation Status: Acute (4) Acute bronchitis Status: Acute (5) Methadone dependence Status: Acute (6) Opiate use Status: Acute (7) Tobacco abuse Status: Acute (8) Anxiety Status: Chronic (9) Chronic, continuous use of opioids Status: Chronic (10) IV drug user Status: Chronic - Assessment and Plan (Free Text) Assessment: RESP STATUS NO SIG CHANGE., CONT NEB BD., ADVAIR., STEROID TAPER TOLERATED. CXR REVIEWED. MONITOR O2 SAT. AFEBRILE ON AB. INCREASE OOB AND PT. PROG POOR . DISCUSSED WITH STAFF AT LENGTH.
[2018-04-22 16:32] VITALS: BP 120/62; PULSE 97; TEMP 98; O2SAT 96
== END 2018-04-22 19:08 | disposition home or self-care (01) | DRG 430 ==
LOC: C.ER 19:21 → C.9E 22:23 → C.6T 22:48
PROVIDERS: ADMIT Internal Medicine Nephrology; ATTEND Internal Medicine Nephrology
DX: F33.2 Major depressive disorder, recurrent severe without psychotic features (principal); J96.10 Chronic respiratory failure, unspecified whether with hypoxia or hypercapnia; F11.20 Opioid dependence, uncomplicated; J44.0 Chronic obstructive pulmonary disease with (acute) lower respiratory infection; J44.1 Chronic obstructive pulmonary disease with (acute) exacerbation; G47.30 Sleep apnea, unspecified; H54.7 Unspecified visual loss; I10 Essential (primary) hypertension; F17.200 Nicotine dependence, unspecified, uncomplicated; E11.9 Type 2 diabetes mellitus without complications; Z90.01 Acquired absence of eye; Z99.81 Dependence on supplemental oxygen; F41.0 Panic disorder [episodic paroxysmal anxiety]

== ENCOUNTER 2018-05-22 18:20 | Emergency (ER) | payer MEDICAID, OTHER ==
[2018-05-22 18:20] VITALS: BMI 21.7
[2018-05-22 18:31] VITALS: TEMP 99
--- NOTE | 2018-05-22 18:42 | C.PDOC ---
History Of Present Illness 57 y/o female, with PMHx of anxiety, asthma, bronchitis, COPD on home o2 3L, depression, diabetes, emphysema, and HTN, presents to ED for evaluation of shortness of breath for the past week. Pt reports symptoms are similar to prior COPD exacerbation. Pt states she feels better after nebulizer treatment. No cough or fever. Pt states is not taking any steroid medications, notes she stopped taking her anxiety medications, but denies any depression, SI or HI. She also reports chest pain for the 3-4 days. Denies nausea, vomiting, headache , dizziness, or any other complaints at this time. Time Seen by Provider: 05/22/18 18:41 Chief Complaint (Nursing): Shortness Of Breath History Per: Patient History/Exam Limitations: no limitations Past Medical History Reviewed: Historical Data, Nursing Documentation, Vital Signs Vital Signs: Last Vital Signs Temp 99 F 05/23/18 00:09 Pulse 97 H 05/23/18 00:09 Resp 19 05/23/18 00:09 BP 123/80 05/23/18 00:09 Pulse Ox 95 05/23/18 00:09 - Medical History PMH: Anemia, Anxiety, Asthma, Bronchitis, Cardia Arrhythmia, COPD, Depression, Diabetes, Emphysema, HTN Denies: Chronic Kidney Disease, Seizures, Sexually Transmitted Disease, Sleep Apnea Surgical History: Back Surgery Denies: Coronary Stent, Pacemaker - [facility] Procedures APPLICATION OF SPLINT (12/18/03) ASSISTANCE WITH RESPIRATORY VENTILATION, 24-96 HRS, CPAP (02/01/17) ASSISTANCE WITH RESPIRATORY VENTILATION, <24 HRS, CPAP (02/27/18) ASSISTANCE WITH RESPIRATORY VENTILATION, >96 HRS, CPAP (01/23/17) DETOXIFICATION SERVICES FOR SUBSTANCE ABUSE TREATMENT (10/31/17) INDIV PSYCHOTHERAPY FOR SUBSTANCE ABUSE TREATMENT, SUPPORT (10/31/17) INDIV PSYCHOTHERAPY FOR SUBSTANCE ABUSE, PSYCHOEDUCATION (10/31/17) INDIVIDUAL PSYCHOTHERAPY, SUPPORTIVE (04/29/17) INJECT/INFUSE NEC (03/17/05) INSERTION OF ENDOTRACHEAL AIRWAY INTO TRACHEA, VIA OPENING (02/01/17) INSERTION OF INFUSION DEV INTO SUP VENA CAVA, PERC APPROACH (02/01/17) INTRODUCE OF OTH THERAP SUBST INTO RESP TRACT, VIA OPENING (01/23/17) INTRODUCE OF OXAZOLIDINONES INTO PERIPH VEIN, PERC APPROACH (02/01/17) MAGNETIC RESONANCE IMAGING OF SPINAL CANAL (07/19/98) RESPIRATORY VENTILATION, LESS THAN 24 CONSECUTIVE HOURS (02/01/17) TETANUS TOXOID ADMINIST (04/24/05) ULTRASONOGRAPHY OF LEFT UPPER EXTREMITY VEINS, GUIDANCE (02/01/17) Family History: States: Unknown Family Hx - Social History Hx Alcohol Use: No Hx Substance Use: Yes (IVDA +HEROIN. ) - Immunization History Hx Tetanus Toxoid Vaccination: No Hx Influenza Vaccination: No Hx Pneumococcal Vaccination: Yes Review Of Systems Except As Marked, All Systems Reviewed And Found Negative. Constitutional: Negative for: Fever, Chills Cardiovascular: Positive for: Chest Pain Respiratory: Positive for: Shortness of Breath Physical Exam - Physical Exam Appears: Non-toxic, No Acute Distress Skin: Normal Color, Warm, Dry Head: Atraumatic, Normacephalic Eye(s): bilateral: Normal Inspection Oral Mucosa: Moist Neck: Normal ROM, Supple Cardiovascular: Rhythm Regular, No Murmur Respiratory: No Accessory Muscle Use, No Rales, No Rhonchi, Wheezing (mild wheezing to bilateral bases) Gastrointestinal/Abdominal: Soft, No Tenderness Extremity: Normal ROM, No Pedal Edema Neurological/Psych: Oriented x3, Normal Speech ED Course And Treatment - Laboratory Results Result Diagrams: 05/22/18 19:22 ECG: Interpreted By Me, Viewed By Me ECG Rhythm: Sinus Tachycardia Interpretation Of ECG: No STEMI. Rate From EC (bpm) O2 Sat by Pulse Oximetry: 94 Medical Decision Making Medical Decision Makin57 year old female w/ hx of COPD on home o2 3L p/w CP and sob that feels exactly alike pervious copd exacerbation. troponin negative: EKG w/ out stemi, unlikely cardiac in etiology given pt noting her symptoms feel exactly alike previous COPD exacerbations 2124 CTA b/l resting comfortably in bed in NAD no sputum, well appearing, w/ out elevated WBC cxr reviewed- unremarkable will d/c home with steroids and albuterol pt agreeable to planl. Disposition - Disposition Referrals: [facility] [Outside] Boone Buckley MD [Staff Provider] - Disposition: HOME/ ROUTINE Disposition Time: 21:25 Condition: GOOD Prescriptions: Albuterol HFA [Ventolin HFA 90 mcg/actuation (8 g)] 1 puff IH Q6H PRN #1 puff PRN Reason: Shortness Of Breath predniSONE [Prednisone] 40 mg PO QAM 5 Days #10 tab Instructions: Exacerbation of COPD Forms: [facility] (Setswana) - Clinical Impression Clinical Impression: COPD exacerbation - Scribe Statement The provider has reviewed the documentation as recorded by the Scribe KP All medical record entries made by the Scribe were at my direction and personally dictated by me. I have reviewed the chart and agree that the record accurately reflects my personal performance of the history, physical exam, medical decision making, and the department course for this patient. I have also personally directed, reviewed, and agree with the discharge instructions and disposition.
[2018-05-22] MEDS ORDERED: Albuterol-Ipratrop 3 mg / 0.5 (3 ml) UD INH STA (19:13)
[2018-05-22 19:24] LABS: BASO % 0.5 % (0.0-2.0); EOS # 0.1 K/uL (0.0-0.7); EOS % 0.8 % (0.0-4.0); HEMOGLOBIN 12.8 g/dL (11.0-16.0); LYMPH # 1.4 K/uL (1.0-4.3); LYMPH % 19.6 % (20.0-40.0); MEAN CELL VOLUME 93.7 fL (81.0-99.0); MEAN CORPUSCULAR HEMOGLOBIN 32.3 pg (27.0-31.0); MEAN CORPUSCULAR HGB CONC 34.5 g/dL (33.0-37.0); MEAN PLATELET VOLUME 8.3 fL (7.2-11.7); MONO # 0.6 K/uL (0.0-0.8); MONO % 8.6 % (0.0-10.0); NEUT % 70.5 % (50.0-75.0); NRBC % 0.1 % (0.0-2.0); RBC 3.96 Mil/uL (3.80-5.20); RED CELL DISTRIBUTION WIDTH 14.7 % (11.5-14.5); WHITE BLOOD COUNT 7.1 K/uL (4.8-10.8)
[2018-05-22] MEDS ORDERED: Albuterol-Ipratrop 3 mg / 0.5 (3 ml) UD ONE (19:25)
[2018-05-22] MEDS ORDERED: Acetaminophen-Codeine 300/30 mg Tab PO STA (23:11)
[2018-05-22] MEDS ORDERED: Acetaminophen-Codeine 300/30 mg Tab PO ONE (23:17)
[2018-05-23 00:11] VITALS: BP 123/80; PULSE 97; RESP 19
[2018-05-23 01:49] VITALS: O2SAT 94
--- NOTE | 2018-05-23 09:11 | RAD ---
Date of service: 05/22/2018 HISTORY: sob COMPARISON: 04/15/2018 TECHNIQUE: Chest PA and lateral FINDINGS: LUNGS: Chronic interstitial lung disease. No acute pulmonary findings PLEURA: No significant pleural effusion identified. No pneumothorax apparent. CARDIOVASCULAR: Normal. OSSEOUS STRUCTURES: No significant abnormalities. VISUALIZED UPPER ABDOMEN: Normal. OTHER FINDINGS: None. IMPRESSION: No active disease. No significant interval change compared to the prior examination(s). Concordant results with the preliminary interpretation rendered by the emergency department physician procedure.
--- NOTE | 2018-05-23 19:28 | CARD ---
APPROVED REPORT Date of service: 05/22/2018 EKG Measurement Heart [id number] <Conclusion> Sinus tachycardia Otherwise normal ECG
== END 2018-05-23 00:09 | disposition home or self-care (01) ==
LOC: C.ER 18:20
DX: J44.1 Chronic obstructive pulmonary disease with (acute) exacerbation (principal)

== ENCOUNTER 2018-05-31 10:12 | Inpatient (IN) | payer OTHER ==
[2018-05-31 10:12] VITALS: BMI 21.7
--- NOTE | 2018-05-31 10:18 | C.PDOC ---
History Of Present Illness 57 Y/O FEMALE WITH PMHX OF ANXIETY, ASTHMA, BRONCHITIS, COPD ON OME O2 3L, DEPRESSION, DM, EMPHYSEMA AND HTN PRESENTS TO ED REFERRED BY DR.JAY HARRINGTON FOR ADMISSION FOR COPD EXACERBATION. PATIENT SEEN AT ED ON 05/22/18 AND SENT HOME WIT H PREDNISONE, STATES NO IMPROVEMENT AND REPORTS SUBJECTIVE FEVER LAST NIGHT. PATIENT STATES SHE FEELS THE SAME SINCE PRIOR ED VISIT CONTRARY TO PRIOR ED DOCUMENTATION. PMHx of anxiety, asthma, bronchitis, COPD on home o2 3L, depression, diabetes, emphysema, and HTN, SUBSTANCE ABUSE ON METHADONE SEEN 05/22 FOR SAME, DC HOME W PREDNISONE Time Seen by Provider: 05/31/18 10:17 Chief Complaint (Nursing): Shortness Of Breath History Per: Patient History/Exam Limitations: no limitations Onset/Duration Of Symptoms: Days Current Symptoms Are (Timing): Still Present Initiating Event: Upper Respiratory Illness Past Medical History Reviewed: Historical Data, Nursing Documentation, Vital Signs - Medical History PMH: Anemia, Anxiety, Asthma, Bronchitis, Cardia Arrhythmia, COPD, Depression, Diabetes, Emphysema, HTN Surgical History: Back Surgery - [facility] Procedures APPLICATION OF SPLINT (12/18/03) ASSISTANCE WITH RESPIRATORY VENTILATION, 24-96 HRS, CPAP (02/01/17) ASSISTANCE WITH RESPIRATORY VENTILATION, <24 HRS, CPAP (02/27/18) ASSISTANCE WITH RESPIRATORY VENTILATION, >96 HRS, CPAP (01/23/17) DETOXIFICATION SERVICES FOR SUBSTANCE ABUSE TREATMENT (10/31/17) INDIV PSYCHOTHERAPY FOR SUBSTANCE ABUSE TREATMENT, SUPPORT (10/31/17) INDIV PSYCHOTHERAPY FOR SUBSTANCE ABUSE, PSYCHOEDUCATION (10/31/17) INDIVIDUAL PSYCHOTHERAPY, SUPPORTIVE (04/29/17) INJECT/INFUSE NEC (03/17/05) INSERTION OF ENDOTRACHEAL AIRWAY INTO TRACHEA, VIA OPENING (02/01/17) INSERTION OF INFUSION DEV INTO SUP VENA CAVA, PERC APPROACH (02/01/17) INTRODUCE OF OTH THERAP SUBST INTO RESP TRACT, VIA OPENING (01/23/17) INTRODUCE OF OXAZOLIDINONES INTO PERIPH VEIN, PERC APPROACH (02/01/17) MAGNETIC RESONANCE IMAGING OF SPINAL CANAL (07/19/98) RESPIRATORY VENTILATION, LESS THAN 24 CONSECUTIVE HOURS (02/01/17) TETANUS TOXOID ADMINIST (04/24/05) ULTRASONOGRAPHY OF LEFT UPPER EXTREMITY VEINS, GUIDANCE (02/01/17) Family History: States: No Known Family Hx - Social History Hx Alcohol Use: No Hx Substance Use: Yes (IVDA +HEROIN. ) - Immunization History Hx Tetanus Toxoid Vaccination: No Hx Influenza Vaccination: No Hx Pneumococcal Vaccination: Yes Review Of Systems Constitutional: Negative for: Fever, Chills Cardiovascular: Negative for: Chest Pain Respiratory: Positive for: Cough, Shortness of Breath Gastrointestinal: Negative for: Nausea, Vomiting Skin: Negative for: Rash Physical Exam - Physical Exam Appears: Non-toxic, Other (In mild distress) Skin: Warm, Dry, No Rash Head: Atraumatic, Normacephalic Eye(s): bilateral: Normal Inspection Oral Mucosa: Moist Neck: Normal ROM, Supple Chest: Symmetrical Cardiovascular: Rhythm Regular Respiratory: Wheezing (bilateral expiratory), Other (retractions, bronchiole congestion) Gastrointestinal/Abdominal: Soft, No Tenderness, No Guarding, No Rebound Extremity: No Pedal Edema, Capillary Refill (<2 seconds) Neurological/Psych: Oriented x3, Normal Speech, Normal Cognition ED Course And Treatment - Laboratory Results Result Diagrams: 05/31/18 10:55 ECG: Interpreted By Me, Viewed By Me ECG Rhythm: Sinus Tachycardia Rate From EC (BPM) O2 Sat by Pulse Oximetry: 99 (RA) Progress - Re-Evaluation Re-evaluation Note: 05/31/18 10:54 PER SERVICE, DR HARRINGTON COVERED BY DR ESTRADA. D/W DR ESTRADA AWARE OF ER FINDINGS, WILL CONSULT STATES TO ADMIT UNDER PMD - Data Reviewed Data Reviewed: Lab, Diagnostic imaging, Old records Disposition Counseled Patient/Family Regarding: Studies Performed, Diagnosis - Disposition Disposition: HOSPITALIZED Disposition Time: 10:57 Condition: STABLE Forms: [facility] ([place] Islander) - POA Present On Arrival: None - Clinical Impression Clinical Impression: Acute exacerbation of chronic obstructive pulmonary disease (COPD) - Scribe Statement The provider has reviewed the documentation as recorded by the Aidanibcharles Baez All medical record entries made by the Aidanibcharles were at my direction and personally dictated by me. I have reviewed the chart and agree that the record accurately reflects my personal performance of the history, physical exam, medical decision making, and the department course for this patient. I have also personally directed, reviewed, and agree with the discharge instructions and d isposition. Decision To Admit - Pt Status Changed To: Hospital Disposition Of: Observation - . Bed Request Type: Regular Admitting Physician: Augustine Harrington Patient Diagnosis: Acute exacerbation of chronic obstructive pulmonary disease (COPD)
[2018-05-31] MEDS ORDERED: Sodium Chloride 0.9% 1,000 ML IV ONE (10:49)
[2018-05-31 11:00] LABS: BASO # 0.1 K/uL (0.0-0.2); EOS # 0.1 K/uL (0.0-0.7); NEUT # 6.9 K/uL (1.8-7.0); WHITE BLOOD COUNT 9.9 K/uL (4.8-10.8)
[2018-05-31 11:03] LABS: BASO % 0.7 % (0.0-2.0); EOS % 1.3 % (0.0-4.0); HEMOGLOBIN 13.6 g/dL (11.0-16.0); LYMPH % 19.8 % (20.0-40.0); MEAN CELL VOLUME 95.4 fL (81.0-99.0); MEAN CORPUSCULAR HGB CONC 33.6 g/dL (33.0-37.0); MEAN PLATELET VOLUME 8.3 fL (7.2-11.7); MONO # 0.9 K/uL (0.0-0.8); MONO % 9.1 % (0.0-10.0); NEUT % 69.1 % (50.0-75.0); NRBC % 0.1 % (0.0-2.0); RBC 4.25 Mil/uL (3.80-5.20); RED CELL DISTRIBUTION WIDTH 14.7 % (11.5-14.5)
[2018-05-31] MEDS: Albuterol-Ipratrop 3 mg / 0.5 (3 ml) UD IH SCH ×3 (11:06→11:38)
[2018-05-31] MEDS ORDERED: MethylPREDNISolone 40 mg Vial ONE (11:10)
[2018-05-31] MEDS ORDERED: Sodium Chloride 0.9% 1,000 ML ONE (11:10)
[2018-05-31] MEDS ORDERED: Albuterol-Ipratrop 3 mg / 0.5 (3 ml) UD ONE (11:13)
[2018-05-31 11:27] LABS: ALBUMIN 3.7 g/dL (3.5-5.0); ALT/SGPT 225 U/L (9-52); AST/SGOT 214 U/L (14-36); BLOOD UREA NITROGEN 8 mg/dL (7-17); CALCIUM 8.9 mg/dl (8.6-10.4); GFR NON-AFRICAN AMERICAN > 60
--- NOTE | 2018-05-31 12:10 | RAD ---
HISTORY: SOB COMPARISON: Chest x-ray performed 05/22/18 TECHNIQUE: Chest, one view. FINDINGS: LUNGS: Chronic appearing interstitial markings. Right paratracheal opacity may reflect tortuous vasculature as well as external artifact. Please note that chest x-ray has limited sensitivity for the detection of pulmonary masses. PLEURA: No significant pleural effusion identified. No definite pneumothorax . CARDIOVASCULAR: Heart size appears within normal limits. Ectatic aorta. OSSEOUS STRUCTURES: Degenerative changes of the spine. VISUALIZED UPPER ABDOMEN: Unremarkable. OTHER FINDINGS: None. IMPRESSION: Chronic appearing interstitial markings. Right paratracheal opacity, possibly combination tortuous vasculature as well as external artifact.
--- NOTE | 2018-05-31 16:03 | CP.PCM.HP ---
History of Present Illness - History of Present Illness History of Present Illness: 57-year-old female patient with PMH of asthma, bronchitis, COPD, depression, anxiety, DM, emphysema, HTN comes to the ED referred by Dr. Kavya Rico for admission for COPD exacerbation. Patient was last seen in ED on 05/22/18 and was sent home with prednisone, patient states no improvement and reports subjective fever last night. Patient feels has been no improvement and she feels the same since prior ED visit which is contrary to prior ED documentation. 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 ) - SURGICAL HISTORY Hx Coronary Stent: No - ANESTHESIA Hx Anesthesia: Yes Hx Anesthesia Reactions: No Hx Malignant Hyperthermia: No Meds Home Medications: Home Medication List Medication Instructions Recorded Confirmed Type Gabapentin [Neurontin] 300 mg PO BID cap 06/13/18 Rx guaiFENesin [Robitussin] 100 mg PO Q4H PRN udc 06/13/18 Rx Allergies/Adverse Reactions: Allergies Allergy/AdvReac Type Severity Reaction Status Date / Time Penicillins Allergy ANAPHYLAXIS Verified 05/31/18 10:28 Physical Exam - Constitutional Appears: Well - Head Exam Head Exam: ATRAUMATIC, NORMAL INSPECTION, NORMOCEPHALIC - Eye Exam Eye Exam: EOMI, Normal appearance, PERRL Pupil Exam: NORMAL ACCOMODATION, PERRL - ENT Exam ENT Exam: Mucous Membranes Moist, Normal Exam - Neck Exam Neck exam: Positive for: Normal Inspection - Respiratory Exam Respiratory Exam: Decreased Breath Sounds - Cardiovascular Exam Cardiovascular Exam: REGULAR RHYTHM, +S1, +S2 - GI/Abdominal Exam GI & Abdominal Exam: Diminished Bowel Sounds, Soft - Rectal Exam Rectal Exam: Deferred Results - Vital Signs Recent Vital Signs: Last Vital Signs Temp 98.3 F 05/31/18 15:39 Pulse 82 05/31/18 15:39 Resp 18 05/31/18 15:39 BP 124/68 05/31/18 15:39 Pulse Ox 97 05/31/18 15:39 - Labs Result Diagrams: 06/06/18 06:48 06/06/18 06:48 Labs: Laboratory Results - last 24 hr 05/31/18 05/31/18 10:55 10:55 WBC 9.9 RBC 4.25 Hgb 13.6 Hct 40.6 MCV 95.4 MCH 32.0 H MCHC 33.6 RDW 14.7 H Plt Count 165 MPV 8.3 Neut % (Auto) 69.1 Lymph % (Auto) 19.8 L [place] % (Auto) 9.1 Eos % (Auto) 1.3 Baso % (Auto) 0.7 Neut # (Auto) 6.9 Lymph # (Auto) 2.0 [place] # (Auto) 0.9 H Eos # (Auto) 0.1 Baso # (Auto) 0.1 Sodium 140 Potassium 4.2 Chloride 95 L Carbon Dioxide 38 H Anion Gap 9 L BUN 8 Creatinine 0.4 L Est GFR ( Amer) > 60 Est GFR (Non-Af Amer) > 60 Random Glucose 124 H Calcium 8.9 Total Bilirubin 1.1 AST 214 H D ALT 225 H D Alkaline Phosphatase 102 Total Protein 7.2 Albumin 3.7 Globulin 3.5 Albumin/Globulin Ratio 1.0 Assessment & Plan (1) Abnormal chest xray Status: Acute Priority: Medium (2) Acute bronchitis Status: Acute (3) C. difficile diarrhea Status: Acute (4) COPD exacerbation Status: Acute (5) Chest pain Status: Acute Priority: Medium (6) Diabetes Status: Acute (7) Dyspnea Status: Acute (8) HTN (hypertension) Status: Acute (9) Hypercarbia Status: Acute (10) Methadone dependence Status: Acute (11) Opiate use Status: Acute (12) Opioid dependence Status: Acute (13) Pneumonia Status: Acute (14) Sepsis Status: Acute (15) Tobacco abuse Status: Acute (16) Tobacco abuse counseling Status: Acute (17) UTI (urinary tract infection) Status: Acute (18) Acute exacerbation of chronic obstructive pulmonary disease (COPD) Status: Chronic (19) Anxiety Status: Chronic Priority: Medium (20) Chronic obstructive airway disease Status: Chronic Priority: Medium (21) Chronic, continuous use of opioids Status: Chronic (22) Depression Status: Chronic (23) IV drug user Status: Chronic - Assessment and Plan (Free Text) Plan: Seen and examined at bedside Labs and meds reviewed talked to Dr. Church high WBC IV fluids nebs steroids antibiotics dvt/gi prophylaxis chemical dependency counselor for drug abuse
--- NOTE | 2018-05-31 17:26 | CP.PCM.CON ---
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 ) - SURGICAL HISTORY Hx Coronary Stent: No - ANESTHESIA Hx Anesthesia: Yes Hx Anesthesia Reactions: No Hx Malignant Hyperthermia: No Meds Allergies/Adverse Reactions: Allergies Allergy/AdvReac Type Severity Reaction Status Date / Time Penicillins Allergy ANAPHYLAXIS Verified 05/31/18 10:28 - Medications Medications: Current Medications Sodium Chloride (Sodium Chloride 0.9%) 1,000 mls @ 100 mls/hr IV .Q10H ONE Stop: 05/31/18 20:48 Last Admin: 05/31/18 11:11 Dose: 100 mls/hr Results - Vital Signs Recent Vital Signs: Last Vital Signs Temp 98.7 F 05/31/18 16:50 Pulse 82 05/31/18 16:50 Resp 18 05/31/18 16:50 BP 127/74 05/31/18 16:50 Pulse Ox 97 05/31/18 16:50 - Labs Result Diagrams: 05/31/18 10:55 05/31/18 10:55 Labs: Laboratory Results - last 24 hr 05/31/18 05/31/18 10:55 10:55 WBC 9.9 RBC 4.25 Hgb 13.6 Hct 40.6 MCV 95.4 MCH 32.0 H MCHC 33.6 RDW 14.7 H Plt Count 165 MPV 8.3 Neut % (Auto) 69.1 Lymph % (Auto) 19.8 L [place] % (Auto) 9.1 Eos % (Auto) 1.3 Baso % (Auto) 0.7 Neut # (Auto) 6.9 Lymph # (Auto) 2.0 [place] # (Auto) 0.9 H Eos # (Auto) 0.1 Baso # (Auto) 0.1 Sodium 140 Potassium 4.2 Chloride 95 L Carbon Dioxide 38 H Anion Gap 9 L BUN 8 Creatinine 0.4 L Est GFR ( Amer) > 60 Est GFR (Non-Af Amer) > 60 Random Glucose 124 H Calcium 8.9 Total Bilirubin 1.1 AST 214 H D ALT 225 H D Alkaline Phosphatase 102 Total Protein 7.2 Albumin 3.7 Globulin 3.5 Albumin/Globulin Ratio 1.0
[2018-05-31] MEDS: Azithromycin 500 MG in Sodium Chloride 0.9% 250 ML IVPB SCH (18:35)
[2018-05-31] MEDS: Albuterol-Ipratrop 3 mg / 0.5 (3 ml) UD INH SCH ×2 (19:20→23:59)
[2018-05-31] MEDS ORDERED: Methadone 40 mg Tab PO SCH (21:00)
[2018-06-01] MEDS: Albuterol-Ipratrop 3 mg / 0.5 (3 ml) UD INH SCH ×4 (05:29→15:35)
[2018-06-01] MEDS ORDERED: Fluticasone-Vilanterol 100/25mcg Diskus INH SCH (08:00)
[2018-06-01] MEDS: guaiFENesin 100 mg/5 ml Syrup UD PO PRN ×3 (08:23→20:09)
[2018-06-01] MEDS: Enoxaparin 40 mg Syringe SC SCH (09:01)
[2018-06-01] MEDS ORDERED: Azithromycin 500 MG in Sodium Chloride 0.9% 250 ML IVPB SCH (10:00)
[2018-06-01] MEDS: Methadone 40 mg Tab PO SCH (13:16)
--- NOTE | 2018-06-01 13:22 | CARD ---
APPROVED REPORT Date of service: 05/31/2018 EKG Measurement Heart [id number] <Conclusion> Sinus tachycardia Otherwise normal ECG
--- NOTE | 2018-06-01 13:27 | PCM.PSYCH ---
Initial Psychiatric Evaluation - Initial Psychiatric Evaluation Type of Admission: Voluntary Legal Status: Capacity Chief Complaint (in patient's own words): "I'm very nervous" History of Present Illness and Precipitating Events: Pt is seen, chart reviewed, case discussed with staff. Consultation was requested because of her psychiatric medications and methadone maintenance regimen. She is well-known from previous admissions. Pt is a 57 y/o female who is single and living with her 27 y/o son and 19 y/o daughter in an apartment in ; pt also has a 40 y/o son. Pt is admitted to the hospital for COPD exacerbation and dyspnea again. Pt has a hx of heroin abuse for the past 5 years and was using 20 bags/day IV The pt has been on 60 mg methadone maintenance from [facility] this year; pt intermittently uses heroin while on methadone Pt denies current alcohol, pill, cocaine, LSD, or PCP use. She quit smoking recently Pt has been to detox 3x, but the pt has never been to rehab because she says that she gets denied because of her COPD. Pt reports a hx of depression and says that she is still depressed and having panic attacks. Pt has a hx of panic attacks which began 3 years ago; during these episodes pt feels like she is going to and says that she cannot breathe; pt says that she has passed out from these episodes before. Pt denies A/H or paranoia; pt says that she sometimes experiences V/H in her per ipheral vision. Pt attempted to overdose on sleeping pills in her 20s and was hospitalized but denies any S/I or H/I now. Past medical hx: Hep C, COPD, emphysema Family psyc hx: multiple family members have drug abuse issues Current Medications: Active Medications Generic Name Dose Route Start Last Admin Trade Name Freq PRN Reason Stop Dose Admin Albuterol/Ipratropium 3 ml 05/31/18 20:00 06/01/18 11:49 Duoneb 3 Mg/0.5 Mg (3 Ml) Ud INH 3 ml RQ4 NITHIN Administration Enoxaparin Sodium 40 mg 06/01/18 10:00 06/01/18 09:01 Lovenox SC 40 mg DAILY NITHIN Administration Fluticasone/Vilanterol 1 puff 06/01/18 08:00 Breo Ellipta 100-25 Mcg Inh INH RQ24 NITHIN Guaifenesin 100 mg 06/01/18 08:10 06/01/18 08:23 Robitussin PO 100 mg Q4H PRN Administration Cough Hydroxyzine HCl 25 mg 05/31/18 18:04 Atarax PO BID PRN Anxiety Azithromycin 500 mg/ Sodium 250 mls @ 250 mls/hr 05/31/18 19:00 05/31/18 18:35 Chloride IVPB 250 mls/hr Q24H NITHIN Administration Protocol Influenza Virus Vaccine 60 mcg 06/02/18 10:00 Fluzone Quad [id number] IM 06/02/18 10:01 .ONCE ONE Methadone HCl 40 mg 06/01/18 14:00 06/01/18 13:16 Methadose PO 40 mg Q24H NITHIN Administration Methadone HCl 20 mg 06/01/18 14:00 06/01/18 13:16 Methadone PO 20 mg Q24H NITHIN Administration Methylprednisolone 60 mg 06/01/18 00:00 06/01/18 11:03 Solu-Medrol IVP 60 mg Q6 NITHIN Administration Montelukast Sodium 10 mg 05/31/18 22:00 05/31/18 21:23 Singulair PO 10 mg HS NITHIN Administration Quetiapine Fumarate 25 mg 06/01/18 10:00 06/01/18 09:01 Seroquel PO 25 mg BID NITHIN Administration Trazodone HCl 100 mg 05/31/18 22:00 05/31/18 21:23 Desyrel PO 100 mg HS NITHIN Administration Past Psychiatric History - Past Psychiatric History Previous Treatment History: Inpatient Pertinent Medical Hx (Current Medical&Sleep Prob, Allergies): Allergies Allergy/AdvReac Type Severity Reaction Status Date / Time Penicillins Allergy ANAPHYLAXIS Verified 05/31/18 10:28 hydrOXYzine HCl [Atarax] 25 mg PO BID PRN #60 tab 11/05/17 traZODone [Desyrel] 100 mg PO HS #30 tab 11/05/17 Albuterol HFA [Ventolin HFA 90 mcg/actuation (8 g)] 1 puff INH RQ4 PRN #1 inhaler 03/07/18 Fluticasone/Salmeterol 500/50 [Advair Diskus 500/50] 1 puff INH RQ12 #1 inhaler 03/07/18 Montelukast [Singulair] 10 mg PO HS #30 tab 03/07/18 Theophylline Anhydrous [Miguel-24] 300 mg PO DAILY #30 cap.er.24h 03/07/18 Albuterol/Ipratropium [Duoneb 3 mg/0.5 mg (3 ml) UD] 3 ml IH TID PRN 04/15/18 Melatonin 5 mg PO HS 04/15/18 QUEtiapine [SEROquel] 25 mg PO BID 04/15/18 Umeclidinium [place] [Incruse Ellipta] 62.5 mcg IH DAILY 04/15/18 Zolpidem Tartrate 5 mg PO HS 04/15/18 Azithromycin [Z-Kunal] See Taper PO DAILY #6 tab 04/21/18 Escitalopram [Lexapro] 10 mg PO DAILY #30 tab 04/21/18 Methylprednisolone [Medrol Dose Pack (21 tabs)] See Taper PO DAILY #21 mg 04/21/18 Albuterol HFA [Ventolin HFA 90 mcg/actuation (8 g)] 1 puff IH Q6H PRN #1 puff 05/22/18 predniSONE [Prednisone] 40 mg PO QAM 5 Days #10 tab 05/22/18 Review of Systems - Psychiatric Psychiatric: Abnormal Sleep Pattern, Anhedonia, Anxiety, Change in Appetite, Depression, Difficulty Concentrating, Irritability, Panic Attacks. absent: Hallucinations, Homicidal Ideation, Paranoia, Suicidal Ideation Mental Status Examination - Personal Presentation Personal Presentation: Looks older than stated age - Affect Affect: Constricted - Motor Activity Motor Activity: Calm - Reliability in Providing Information Reliability in Providing Information: Good - Speech Speech: Organized - Mood Mood: Depressed, Anxious - Formal Thought Process Formal Thought Process: No Impairment - Cognitive Functions Orientation: Person, Place, Situation, Time Sensorium: Alert Attention/Concentration: Easily distracted Abstract Thinking: [place] Estimate of Intelligence: Average Judgement: Intact, as evidence by: Good judgement Memory: Recent intact, as evidence by: Ability to recall events of the day, Remote impaired as evidenced by: Inability to recall sig life events - Risk Risk: Diminished functioning - Strength & Assets Inventory Strength & Assets Inventory: Cooperative - Limitations Limitations: Other DSM 5 DX - DSM 5 DSM 5 Diagnosis: Opioid Use Disorder, severe, on maintenance treatment Major Depressive Disorder, recurring, severe Panic disorder w/o agoraphobia - Recommended/Plan of Treatment Treatment Recommendations and Plan of Treatment: Continue daily methadone 60 mg PO as confirmed by [facility] Gabapentin for augmentation As needed medications Lexapro 10 mg and Seroquel 25 mg for anxiety and mood sxs All risks, benefits and alternatives of the meds discussed, and the pt agreed and understood. Supportive therapy and psychoeducation Smoking cessation with SC She can be referred back to her [facility] at [facility] [address] [facility]
--- NOTE | 2018-06-01 14:58 | CP.PCM.PN ---
Subjective - Date & Time of Evaluation Date of Evaluation: 06/01/18 Time of Evaluation: 14:58 - Subjective Subjective: Patient seen and examined Complains of dyspnea and cough Objective - Vital Signs/Intake and Output Vital Signs (last 24 hours): Temp Pulse Resp BP Pulse Ox 98.1 F 109 H 18 117/71 94 L 06/01/18 07:00 06/01/18 07:00 06/01/18 07:00 06/01/18 07:00 06/01/18 12:00 Intake and Output: 06/01/18 06/01/18 06:59 18:59 Intake Total 750 450 Balance 750 450 - Medications Medications: Current Medications Albuterol/Ipratropium (Duoneb 3 Mg/0.5 Mg (3 Ml) Ud) 3 ml INH RQ4 [facility] Last Admin: 06/01/18 11:49 Dose: 3 ml Enoxaparin Sodium (Lovenox) 40 mg SC DAILY [facility] Last Admin: 06/01/18 09:01 Dose: 40 mg Escitalopram Oxalate (Lexapro) 10 mg PO DAILY [facility] Last Admin: 06/01/18 13:51 Dose: 10 mg Fluticasone/Vilanterol (Breo Ellipta 100-25 Mcg Inh) 1 puff INH RQ24 NITHIN Gabapentin (Neurontin) 300 mg PO BID [facility] Guaifenesin (Robitussin) 100 mg PO Q4H PRN PRN Reason: Cough Last Admin: 06/01/18 08:23 Dose: 100 mg Hydroxyzine HCl (Atarax) 25 mg PO BID PRN PRN Reason: Anxiety Azithromycin 500 mg/ Sodium (Chloride) 250 mls @ 250 mls/hr IVPB Q24H [facility]; Protocol Last Admin: 05/31/18 18:35 Dose: 250 mls/hr Influenza Virus Vaccine (Fluzone Quad [id number]) 60 mcg IM .ONCE ONE Stop: 06/02/18 10:01 Methadone HCl (Methadose) 40 mg PO Q24H [facility] Last Admin: 06/01/18 13:16 Dose: 40 mg Methadone HCl (Methadone) 20 mg PO Q24H [facility] Last Admin: 06/01/18 13:16 Dose: 20 mg Methylprednisolone (Solu-Medrol) 60 mg IVP Q6 [facility] Last Admin: 06/01/18 11:03 Dose: 60 mg Montelukast Sodium (Singulair) 10 mg PO [facility] Last Admin: 05/31/18 21:23 Dose: 10 mg Quetiapine Fumarate (Seroquel) 25 mg PO TID [facility] Last Admin: 06/01/18 13:52 Dose: 25 mg Trazodone HCl (Desyrel) 100 mg PO [facility] Last Admin: 05/31/18 21:23 Dose: 100 mg - Labs Labs: 05/31/18 10:55 05/31/18 10:55 - Head Exam Head Exam: NORMAL INSPECTION - Eye Exam Eye Exam: Normal appearance - ENT Exam ENT Exam: Mucous Membranes Moist - Respiratory Exam Respiratory Exam: Prolonged Expiratory Phase (Poor air entry bilaterally), Wheezes - Cardiovascular Exam Cardiovascular Exam: REGULAR RHYTHM, +S1, +S2 - GI/Abdominal Exam GI & Abdominal Exam: Soft, Normal Bowel Sounds - Neurological Exam Neurological Exam: Alert, Oriented x3 - Psychiatric Exam Psychiatric exam: Normal Affect, Normal Mood Assessment and Plan (1) COPD exacerbation Status: Acute (2) Diabetes Status: Acute (3) HTN (hypertension) Status: Acute - Assessment and Plan (Free Text) Plan: Bronchodilator IV methylprednisone Azithromycin Advair 500/50 mcg 1 puff daily Accu-Chek Insulin sliding scale Blood pressure control DVT/GI prophylaxis
[2018-06-01 16:44] LABS: BARBITURATES, UR NEGATIVE (NEGATIVE); BENZODIAZEPINES, UR NEGATIVE (NEGATIVE); OPIATES, UR NEGATIVE (NEGATIVE); PHENCYCLIDINE, UR NEGATIVE (NEGATIVE)
[2018-06-01] MEDS: Azithromycin 500 MG in Sodium Chloride 0.9% 250 ML IVPB SCH (18:00)
--- NOTE | 2018-06-01 21:12 | CP.PCM.PN ---
Subjective - Date & Time of Evaluation Date of Evaluation: 06/01/18 Time of Evaluation: 09:30 - Subjective Subjective: clinically same Objective - Vital Signs/Intake and Output Vital Signs (last 24 hours): Temp Pulse Resp BP Pulse Ox 98.4 F 98 H 18 100/56 L 95 06/01/18 15:00 06/01/18 15:00 06/01/18 15:00 06/01/18 15:00 06/01/18 16:42 Intake and Output: 06/01/18 06/02/18 18:59 06:59 Intake Total 450 Balance 450 - Medications Medications: Current Medications Albuterol/Ipratropium (Duoneb 3 Mg/0.5 Mg (3 Ml) Ud) 3 ml INH RQ4 [facility] Last Admin: 06/01/18 15:35 Dose: 3 ml Enoxaparin Sodium (Lovenox) 40 mg SC DAILY [facility] Last Admin: 06/01/18 09:01 Dose: 40 mg Escitalopram Oxalate (Lexapro) 10 mg PO DAILY [facility] Last Admin: 06/01/18 13:51 Dose: 10 mg Fluticasone/Vilanterol (Breo Ellipta 100-25 Mcg Inh) 1 puff INH RQ24 [facility] Gabapentin (Neurontin) 300 mg PO BID [facility] Last Admin: 06/01/18 17:59 Dose: 300 mg Guaifenesin (Robitussin) 100 mg PO Q4H PRN PRN Reason: Cough Last Admin: 06/01/18 20:09 Dose: 100 mg Hydroxyzine HCl (Atarax) 25 mg PO BID PRN PRN Reason: Anxiety Azithromycin 500 mg/ Sodium (Chloride) 250 mls @ 250 mls/hr IVPB Q24H [facility]; Protocol Last Admin: 06/01/18 18:00 Dose: 250 mls/hr Influenza Virus Vaccine (Fluzone Quad 1392-9334) 60 mcg IM .ONCE ONE Stop: 06/02/18 10:01 Methadone HCl (Methadose) 40 mg PO Q24H [facility] Last Admin: 06/01/18 13:16 Dose: 40 mg Methadone HCl (Methadone) 20 mg PO Q24H [facility] Last Admin: 06/01/18 13:16 Dose: 20 mg Methylprednisolone (Solu-Medrol) 60 mg IVP Q6 [facility] Last Admin: 06/01/18 17:59 Dose: 60 mg Montelukast Sodium (Singulair) 10 mg PO [facility] Last Admin: 06/01/18 21:01 Dose: 10 mg Quetiapine Fumarate (Seroquel) 25 mg PO TID [facility] Last Admin: 06/01/18 17:59 Dose: 25 mg Trazodone HCl (Desyrel) 100 mg PO [facility] Last Admin: 06/01/18 21:01 Dose: 100 mg - Labs Labs: 05/31/18 10:55 05/31/18 10:55 - Constitutional Appears: Non-toxic, No Acute Distress - Head Exam Head Exam: ATRAUMATIC - Eye Exam Eye Exam: Normal appearance - ENT Exam ENT Exam: Mucous Membranes Moist - Neck Exam Neck Exam: Normal Inspection. absent: Lymphadenopathy, Thyromegaly - Respiratory Exam Respiratory Exam: Decreased Breath Sounds - Cardiovascular Exam Cardiovascular Exam: +S1, +S2 - GI/Abdominal Exam GI & Abdominal Exam: Diminished Bowel Sounds - Rectal Exam Rectal Exam: Deferred Assessment and Plan (1) Abnormal chest xray Status: Acute (2) Acute bronchitis Status: Acute (3) C. 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 (11) Opiate use Status: Acute (12) Opioid dependence Status: Acute (13) Pneumonia Status: Acute (14) Sepsis Status: Acute (15) Tobacco abuse Status: Acute (16) Tobacco abuse counseling Status: Acute (17) UTI (urinary tract infection) Status: Acute (18) Acute exacerbation of chronic obstructive pulmonary disease (COPD) Status: Chronic (19) Anxiety Status: Chronic (20) Chronic obstructive airway disease Status: Chronic (21) Chronic, continuous use of opioids Status: Chronic (22) Depression Status: Chronic (23) IV drug user Status: Chronic - Assessment and Plan (Free Text) Plan: Seen and examined at bedside Labs and meds reviewed mild cough and sob IV fluids nebs steroids antibiotics accuchecks ISS dvt/gi prophylaxis clinical mental health counselor for drug abuse psychoeducation
[2018-06-02] MEDS: Albuterol-Ipratrop 3 mg / 0.5 (3 ml) UD INH SCH ×4 (00:11→11:29)
[2018-06-02] MEDS: guaiFENesin 100 mg/5 ml Syrup UD PO PRN ×2 (09:58→13:31)
[2018-06-02] MEDS: Enoxaparin 40 mg Syringe SC SCH (09:59)
[2018-06-02] MEDS ORDERED: Influenza Vaccine 60 MCG/0.5 ML SYR (3 yr & up) IM ONE (10:00)
[2018-06-02] MEDS: Methadone 40 mg Tab PO SCH (13:41)
--- NOTE | 2018-06-02 14:38 | CP.PCM.PN ---
Subjective - Date & Time of Evaluation Date of Evaluation: 06/02/18 Time of Evaluation: 14:38 Objective - Vital Signs/Intake and Output Vital Signs (last 24 hours): Temp Pulse Resp BP Pulse Ox 98.0 F 60 18 113/63 95 06/02/18 07:00 06/02/18 07:00 06/02/18 07:00 06/02/18 07:00 06/02/18 07:00 Intake and Output: 06/02/18 06/02/18 06:59 18:59 Intake Total 950 Balance 950 - Medications Medications: Current Medications Albuterol/Ipratropium (Duoneb 3 Mg/0.5 Mg (3 Ml) Ud) 3 ml INH RQ4 [facility] Last Admin: 06/02/18 11:29 Dose: 3 ml Enoxaparin Sodium (Lovenox) 40 mg SC DAILY [facility] Last Admin: 06/02/18 09:59 Dose: 40 mg Escitalopram Oxalate (Lexapro) 10 mg PO DAILY [facility] Last Admin: 06/02/18 09:58 Dose: 10 mg Fluticasone/Vilanterol (Breo Ellipta 100-25 Mcg Inh) 1 puff INH RQ24 [facility] Gabapentin (Neurontin) 300 mg PO BID [facility] Last Admin: 06/02/18 09:58 Dose: 300 mg Guaifenesin (Robitussin) 100 mg PO Q4H PRN PRN Reason: Cough Last Admin: 06/02/18 13:31 Dose: 100 mg Hydroxyzine HCl (Atarax) 25 mg PO BID PRN PRN Reason: Anxiety Azithromycin 500 mg/ Sodium (Chloride) 250 mls @ 250 mls/hr IVPB Q24H [facility]; Protocol Last Admin: 06/01/18 18:00 Dose: 250 mls/hr Methadone HCl (Methadose) 40 mg PO Q24H [facility] Last Admin: 06/02/18 13:41 Dose: 40 mg Methadone HCl (Methadone) 20 mg PO Q24H [facility] Last Admin: 06/02/18 13:41 Dose: 20 mg Methylprednisolone (Solu-Medrol) 60 mg IVP Q6 [facility] Last Admin: 06/02/18 13:31 Dose: 60 mg Montelukast Sodium (Singulair) 10 mg PO HS [facility] Last Admin: 06/01/18 21:01 Dose: 10 mg Quetiapine Fumarate (Seroquel) 25 mg PO TID [facility] Last Admin: 06/02/18 13:39 Dose: 25 mg Trazodone HCl (Desyrel) 100 mg PO [facility] Last Admin: 06/01/18 21:01 Dose: 100 mg - Labs Labs: 05/31/18 10:55 05/31/18 10:55 Assessment and Plan (1) COPD exacerbation Status: Acute (2) Diabetes Status: Acute (3) HTN (hypertension) Status: Acute
[2018-06-02] MEDS: Azithromycin 500 MG in Sodium Chloride 0.9% 250 ML IVPB SCH (18:22)
--- NOTE | 2018-06-02 19:48 | CP.PCM.PN ---
Subjective - Date & Time of Evaluation Date of Evaluation: 06/02/18 Time of Evaluation: 08:45 - Subjective Subjective: clinically same Objective - Vital Signs/Intake and Output Vital Signs (last 24 hours): Temp Pulse Resp BP Pulse Ox 98 F 63 20 109/62 94 L 06/02/18 15:00 06/02/18 15:00 06/02/18 15:00 06/02/18 15:00 06/02/18 15:00 - Medications Medications: Current Medications Albuterol/Ipratropium (Duoneb 3 Mg/0.5 Mg (3 Ml) Ud) 3 ml INH RQ4 [facility] Last Admin: 06/02/18 11:29 Dose: 3 ml Enoxaparin Sodium (Lovenox) 40 mg SC DAILY [facility] Last Admin: 06/02/18 09:59 Dose: 40 mg Escitalopram Oxalate (Lexapro) 10 mg PO DAILY [facility] Last Admin: 06/02/18 09:58 Dose: 10 mg Fluticasone/Vilanterol (Breo Ellipta 100-25 Mcg Inh) 1 puff INH RQ24 [facility] Gabapentin (Neurontin) 300 mg PO BID [facility] Last Admin: 06/02/18 17:36 Dose: 300 mg Guaifenesin (Robitussin) 100 mg PO Q4H PRN PRN Reason: Cough Last Admin: 06/02/18 13:31 Dose: 100 mg Hydroxyzine HCl (Atarax) 25 mg PO BID PRN PRN Reason: Anxiety Last Admin: 06/02/18 18:52 Dose: 25 mg Azithromycin 500 mg/ Sodium (Chloride) 250 mls @ 250 mls/hr IVPB Q24H [facility]; Protocol Last Admin: 06/02/18 18:22 Dose: 250 mls/hr Methadone HCl (Methadose) 40 mg PO Q24H [facility] Last Admin: 06/02/18 13:41 Dose: 40 mg Methadone HCl (Methadone) 20 mg PO Q24H [facility] Last Admin: 06/02/18 13:41 Dose: 20 mg Methylprednisolone (Solu-Medrol) 60 mg IVP Q6 [facility] Last Admin: 06/02/18 17:37 Dose: 60 mg Montelukast Sodium (Singulair) 10 mg PO HS [facility] Last Admin: 06/01/18 21:01 Dose: 10 mg Quetiapine Fumarate (Seroquel) 25 mg PO TID [facility] Last Admin: 06/02/18 17:36 Dose: 25 mg Trazodone HCl (Desyrel) 100 mg PO HS [facility] Last Admin: 06/01/18 21:01 Dose: 100 mg - Labs Labs: 05/31/18 10:55 05/31/18 10:55 - Constitutional Appears: Well - Head Exam Head Exam: ATRAUMATIC, NORMAL INSPECTION, NORMOCEPHALIC - Eye Exam Eye Exam: EOMI, Normal appearance, PERRL Pupil Exam: NORMAL ACCOMODATION, PERRL - ENT Exam ENT Exam: Mucous Membranes Moist, Normal Exam - Neck Exam Neck Exam: Full ROM, Normal Inspection. absent: Lymphadenopathy - Respiratory Exam Respiratory Exam: Decreased Breath Sounds - Cardiovascular Exam Cardiovascular Exam: REGULAR RHYTHM, +S1, +S2 - GI/Abdominal Exam GI & Abdominal Exam: Soft, Diminished Bowel Sounds - Rectal Exam Rectal Exam: Deferred Assessment and Plan (1) Abnormal chest xray Status: Acute (2) Acute bronchitis Status: Acute (3) C. 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 (11) Opiate use Status: Acute (12) Opioid dependence Status: Acute (13) Pneumonia Status: Acute (14) Sepsis Status: Acute (15) Tobacco abuse Status: Acute (16) Tobacco abuse counseling Status: Acute (17) UTI (urinary tract infection) Status: Acute (18) Acute exacerbation of chronic obstructive pulmonary disease (COPD) Status: Chronic (19) Anxiety Status: Chronic (20) Chronic obstructive airway disease Status: Chronic (21) Chronic, continuous use of opioids Status: Chronic (22) Depression Status: Chronic (23) IV drug user Status: Chronic - Assessment and Plan (Free Text) Plan: Seen and examined at bedside Labs and meds reviewed mild cough and sob IV fluids nebs steroids antibiotics accuchecks ISS dvt/gi prophylaxis Methadone Singular
[2018-06-03] MEDS: Albuterol-Ipratrop 3 mg / 0.5 (3 ml) UD INH SCH ×3 (00:31→21:13)
--- NOTE | 2018-06-03 07:43 | CP.PCM.PN ---
Subjective - Date & Time of Evaluation Date of Evaluation: 06/03/18 Time of Evaluation: 10:05 - Subjective Subjective: PGY 3 Med Note- Dr. Nicki Rico's service Patient seen and examined in no apparent acute distress. Patient reported having what she believes is a panic attack last night. Patient states that she gets these from time to time. She is supposed to be on a medication but is unsure of the name of the pharmacy that she uses. Patient denies subjective fevers or chills, nausea, vomiting, diarrhea at this time. Objective - Vital Signs/Intake and Output Vital Signs (last 24 hours): Temp Pulse Resp BP Pulse Ox 98.0 F 58 L 20 107/69 95 06/02/18 23:10 06/02/18 23:10 06/02/18 23:10 06/02/18 23:10 06/02/18 23:10 - Medications Medications: Current Medications Albuterol/Ipratropium (Duoneb 3 Mg/0.5 Mg (3 Ml) Ud) 3 ml INH RQ4 [facility] Last Admin: 06/03/18 03:23 Dose: 3 ml Enoxaparin Sodium (Lovenox) 40 mg SC DAILY [facility] Last Admin: 06/02/18 09:59 Dose: 40 mg Escitalopram Oxalate (Lexapro) 10 mg PO DAILY [facility] Last Admin: 06/02/18 09:58 Dose: 10 mg Fluticasone/Vilanterol (Breo Ellipta 100-25 Mcg Inh) 1 puff INH RQ24 [facility] Gabapentin (Neurontin) 300 mg PO BID [facility] Last Admin: 06/02/18 17:36 Dose: 300 mg Guaifenesin (Robitussin) 100 mg PO Q4H PRN PRN Reason: Cough Last Admin: 06/02/18 13:31 Dose: 100 mg Hydroxyzine HCl (Atarax) 25 mg PO BID PRN PRN Reason: Anxiety Last Admin: 06/02/18 18:52 Dose: 25 mg Azithromycin 500 mg/ Sodium (Chloride) 250 mls @ 250 mls/hr IVPB Q24H [facility]; Protocol Last Admin: 06/02/18 18:22 Dose: 250 mls/hr Methadone HCl (Methadose) 40 mg PO Q24H [facility] Last Admin: 06/02/18 13:41 Dose: 40 mg Methadone HCl (Methadone) 20 mg PO Q24H [facility] Last Admin: 06/02/18 13:41 Dose: 20 mg Methylprednisolone (Solu-Medrol) 60 mg IVP Q6 [facility] Last Admin: 06/03/18 06:23 Dose: 60 mg Montelukast Sodium (Singulair) 10 mg PO [facility] Last Admin: 06/02/18 21:58 Dose: 10 mg Quetiapine Fumarate (Seroquel) 25 mg PO TID [facility] Last Admin: 06/02/18 17:36 Dose: 25 mg Trazodone HCl (Desyrel) 100 mg PO [facility] Last Admin: 06/02/18 21:58 Dose: 100 mg - Labs Labs: 05/31/18 10:55 05/31/18 10:55 - Constitutional Appears: Non-toxic, No Acute Distress - Head Exam Head Exam: ATRAUMATIC, NORMAL INSPECTION - Eye Exam Eye Exam: absent: Normal appearance (lateral upwards deviation of right eye) - ENT Exam ENT Exam: Mucous Membranes Moist - Neck Exam Neck Exam: Full ROM - Respiratory Exam Respiratory Exam: Wheezes - Cardiovascular Exam Cardiovascular Exam: +S1, +S2 - GI/Abdominal Exam GI & Abdominal Exam: Soft, Normal Bowel Sounds - Extremities Exam Extremities Exam: Full ROM - Back Exam Back Exam: Full ROM - Neurological Exam Neurological Exam: Alert, Awake - Psychiatric Exam Psychiatric exam: Normal Affect, Normal Mood - Skin Skin Exam: Normal Color, Warm Assessment and Plan - Assessment and Plan (Free Text) Assessment: COPD exacerbation - Pulm consulted, Dr. Church. F/U recommendations - NC prn to maintain O2>92% - Duoneb Q4 [facility] - Solumedrol 60 mg IVP Q6H - Montelukast 10mg PO HS - On Breo-Ellipta daily - Robitussin PRN - Azithromycin 500mg IVPB q24h (started on 04/16) - Continue to monitor HTN - Normotensive - Will continue to monitor Anxiety - Continue to monitor- CBT and Supportive therapy * Atarax 25 mg PO BID PRN * Seroquel 25mg PO TID * Trazodone 100mg PO HS * Lexapro 10mg PO Daily * Gabapentin 300 mg PO BID * Psych supportive therapy * F/U Psych recs Heroin abuse - Psych consulted, Dr. Reyes * Methadone treatment per psych. * Patient has been on 60 mg Methadone for the past 3 months. Advise continued outpatient therapy. * Cessation counseling Prophylaxis - SCDs - Lovenox 40mg SC daily - PT eval/treat
[2018-06-03 09:15] LABS: ALB/GLOB RATIO 1.1 (1.0-2.1); ALT/SGPT 112 U/L (9-52); AST/SGOT 35 U/L (14-36); BILIRUBIN,DIRECT 0.2 mg/dL (0.0-0.4); BLOOD UREA NITROGEN 21 mg/dL (7-17); CALCIUM 8.8 mg/dl (8.6-10.4); GFR NON-AFRICAN AMERICAN > 60
[2018-06-03] MEDS: Methadone 40 mg Tab PO SCH (10:57)
[2018-06-03] MEDS: guaiFENesin 100 mg/5 ml Syrup UD PO PRN ×2 (11:00→21:02)
[2018-06-03] MEDS: Enoxaparin 40 mg Syringe SC SCH (11:00)
--- NOTE | 2018-06-03 17:58 | CP.PCM.PN ---
Subjective - Date & Time of Evaluation Date of Evaluation: 06/03/18 Time of Evaluation: 17:58 Objective - Vital Signs/Intake and Output Vital Signs (last 24 hours): Temp Pulse Resp BP Pulse Ox 98.0 F 66 18 113/64 96 06/03/18 15:00 06/03/18 15:00 06/03/18 15:00 06/03/18 15:00 06/03/18 15:00 - Medications Medications: Current Medications Albuterol/Ipratropium (Duoneb 3 Mg/0.5 Mg (3 Ml) Ud) 3 ml INH RQ4 [facility] Last Admin: 06/03/18 03:23 Dose: 3 ml Enoxaparin Sodium (Lovenox) 40 mg SC DAILY [facility] Last Admin: 06/03/18 11:00 Dose: 40 mg Escitalopram Oxalate (Lexapro) 10 mg PO DAILY [facility] Last Admin: 06/03/18 11:00 Dose: 10 mg Fluticasone/Vilanterol (Breo Ellipta 100-25 Mcg Inh) 1 puff INH RQ24 [facility] Gabapentin (Neurontin) 300 mg PO BID [facility] Last Admin: 06/03/18 11:00 Dose: 300 mg Guaifenesin (Robitussin) 100 mg PO Q4H PRN PRN Reason: Cough Last Admin: 06/03/18 11:00 Dose: 100 mg Hydroxyzine HCl (Atarax) 25 mg PO BID PRN PRN Reason: Anxiety Last Admin: 06/02/18 18:52 Dose: 25 mg Azithromycin 500 mg/ Sodium (Chloride) 250 mls @ 250 mls/hr IVPB Q24H [facility]; Protocol Last Admin: 06/02/18 18:22 Dose: 250 mls/hr Methadone HCl (Methadone) 20 mg PO DAILY [facility] Last Admin: 06/03/18 10:58 Dose: 20 mg Methadone HCl (Methadose) 40 mg PO DAILY [facility] Last Admin: 06/03/18 10:57 Dose: 40 mg Methylprednisolone (Solu-Medrol) 60 mg IVP Q6 [facility] Last Admin: 06/03/18 11:00 Dose: 60 mg Montelukast Sodium (Singulair) 10 mg PO HS [facility] Last Admin: 06/02/18 21:58 Dose: 10 mg Quetiapine Fumarate (Seroquel) 25 mg PO TID [facility] Last Admin: 06/03/18 13:28 Dose: 25 mg Trazodone HCl (Desyrel) 100 mg PO HS [facility] Last Admin: 06/02/18 21:58 Dose: 100 mg - Labs Labs: 05/31/18 10:55 06/03/18 08:47 Assessment and Plan (1) COPD exacerbation Status: Acute (2) Diabetes Status: Acute (3) HTN (hypertension) Status: Acute
[2018-06-03] MEDS: Azithromycin 500 MG in Sodium Chloride 0.9% 250 ML IVPB SCH (18:16)
[2018-06-04] MEDS: Albuterol-Ipratrop 3 mg / 0.5 (3 ml) UD INH SCH ×7 (00:11→23:45)
[2018-06-04] MEDS: Methadone 40 mg Tab PO SCH (09:40)
[2018-06-04] MEDS: Enoxaparin 40 mg Syringe SC SCH (09:41)
--- NOTE | 2018-06-04 15:21 | CP.PCM.PN ---
Subjective - Date & Time of Evaluation Date of Evaluation: 06/04/18 Time of Evaluation: 10:00 - Subjective Subjective: clinically same Objective - Vital Signs/Intake and Output Vital Signs (last 24 hours): Temp Pulse Resp BP Pulse Ox 98.2 F 62 18 121/72 96 06/04/18 07:00 06/04/18 07:00 06/04/18 07:00 06/04/18 07:00 06/04/18 07:00 Intake and Output: 06/04/18 06/04/18 06:59 18:59 Intake Total 1050 1000 Balance 1050 1000 - Medications Medications: Current Medications Albuterol/Ipratropium (Duoneb 3 Mg/0.5 Mg (3 Ml) Ud) 3 ml INH RQ4 [facility] Last Admin: 06/04/18 11:09 Dose: 3 ml Enoxaparin Sodium (Lovenox) 40 mg SC DAILY [facility] Last Admin: 06/04/18 09:41 Dose: 40 mg Escitalopram Oxalate (Lexapro) 10 mg PO DAILY [facility] Last Admin: 06/04/18 09:40 Dose: 10 mg Fluticasone/Vilanterol (Breo Ellipta 100-25 Mcg Inh) 1 puff INH RQ24 [facility] Gabapentin (Neurontin) 300 mg PO BID [facility] Last Admin: 06/04/18 09:40 Dose: 300 mg Guaifenesin (Robitussin) 100 mg PO Q4H PRN PRN Reason: Cough Last Admin: 06/03/18 21:02 Dose: 100 mg Hydroxyzine HCl (Atarax) 25 mg PO BID PRN PRN Reason: Anxiety Last Admin: 06/02/18 18:52 Dose: 25 mg Methadone HCl (Methadone) 20 mg PO DAILY [facility] Last Admin: 06/04/18 09:40 Dose: 20 mg Methadone HCl (Methadose) 40 mg PO DAILY [facility] Last Admin: 06/04/18 09:40 Dose: 40 mg Methylprednisolone (Solu-Medrol) 60 mg IVP Q6 [facility] Last Admin: 06/04/18 12:40 Dose: 60 mg Montelukast Sodium (Singulair) 10 mg PO HS [facility] Last Admin: 06/03/18 21:02 Dose: 10 mg Quetiapine Fumarate (Seroquel) 25 mg PO TID [facility] Last Admin: 06/04/18 13:07 Dose: 25 mg Trazodone HCl (Desyrel) 100 mg PO HS [facility] Last Admin: 06/03/18 21:02 Dose: 100 mg - Labs Labs: 05/31/18 10:55 06/03/18 08:47 - Constitutional Appears: Well - Head Exam Head Exam: ATRAUMATIC, NORMAL INSPECTION, NORMOCEPHALIC - Eye Exam Eye Exam: EOMI, Normal appearance, PERRL Pupil Exam: NORMAL ACCOMODATION, PERRL - ENT Exam ENT Exam: Mucous Membranes Moist, Normal Exam - Neck Exam Neck Exam: Full ROM, Normal Inspection. absent: Lymphadenopathy - Respiratory Exam Respiratory Exam: Decreased Breath Sounds - Cardiovascular Exam Cardiovascular Exam: REGULAR RHYTHM, +S1, +S2 - GI/Abdominal Exam GI & Abdominal Exam: Soft, Diminished Bowel Sounds - Rectal Exam Rectal Exam: Deferred Assessment and Plan - Assessment and Plan (Free Text) Plan: COPD exacerbation - Pulm consulted, Dr. Church. F/U recommendations - NC prn to maintain O2>92% - Duoneb Q4 [facility] - Solumedrol 60 mg IVP Q6H - Montelukast 10mg PO HS - On Breo-Ellipta daily - Robitussin PRN - Azithromycin 500mg IVPB q24h (started on 04/16) - Continue to monitor HTN - Normotensive - Will continue to monitor Anxiety - Continue to monitor- CBT and Supportive therapy * Atarax 25 mg PO BID PRN * Seroquel 25mg PO TID * Trazodone 100mg PO HS * Lexapro 10mg PO Daily * Gabapentin 300 mg PO BID * Psych supportive therapy * F/U Psych recs Heroin abuse - Psych consulted, Dr. Reyes * Methadone treatment per psych. * Patient has been on 60 mg Methadone for the past 3 months. Advise continued outpatient therapy. * Cessation counseling Prophylaxis - SCDs - Lovenox 40mg SC daily - PT eval/treat
[2018-06-04] MEDS: guaiFENesin 100 mg/5 ml Syrup UD PO PRN (17:14)
--- NOTE | 2018-06-04 17:46 | CP.PCM.PN ---
Subjective - Date & Time of Evaluation Date of Evaluation: 06/04/18 Objective - Vital Signs/Intake and Output Vital Signs (last 24 hours): Temp Pulse Resp BP Pulse Ox 98.1 F 95 H 18 113/67 95 06/04/18 15:00 06/04/18 15:00 06/04/18 15:00 06/04/18 15:00 06/04/18 15:00 Intake and Output: 06/04/18 06/04/18 06:59 18:59 Intake Total 1050 1000 Balance 1050 1000 - Medications Medications: Current Medications Albuterol/Ipratropium (Duoneb 3 Mg/0.5 Mg (3 Ml) Ud) 3 ml INH RQ4 [facility] Last Admin: 06/04/18 16:01 Dose: 3 ml Enoxaparin Sodium (Lovenox) 40 mg SC DAILY [facility] Last Admin: 06/04/18 09:41 Dose: 40 mg Escitalopram Oxalate (Lexapro) 10 mg PO DAILY [facility] Last Admin: 06/04/18 09:40 Dose: 10 mg Fluticasone/Vilanterol (Breo Ellipta 100-25 Mcg Inh) 1 puff INH RQ24 [facility] Gabapentin (Neurontin) 300 mg PO BID [facility] Last Admin: 06/04/18 17:14 Dose: 300 mg Guaifenesin (Robitussin) 100 mg PO Q4H PRN PRN Reason: Cough Last Admin: 06/04/18 17:14 Dose: 100 mg Hydroxyzine HCl (Atarax) 25 mg PO BID PRN PRN Reason: Anxiety Last Admin: 06/02/18 18:52 Dose: 25 mg Azithromycin 500 mg/ Sodium (Chloride) 250 mls @ 250 mls/hr IVPB DAILY [facility]; Protocol Methadone HCl (Methadone) 20 mg PO DAILY [facility] Last Admin: 06/04/18 09:40 Dose: 20 mg Methadone HCl (Methadose) 40 mg PO DAILY [facility] Last Admin: 06/04/18 09:40 Dose: 40 mg Methylprednisolone (Solu-Medrol) 60 mg IVP Q6 [facility] Last Admin: 06/04/18 17:15 Dose: 60 mg Montelukast Sodium (Singulair) 10 mg PO HS [facility] Last Admin: 06/03/18 21:02 Dose: 10 mg Quetiapine Fumarate (Seroquel) 25 mg PO TID [facility] Last Admin: 06/04/18 17:15 Dose: 25 mg Trazodone HCl (Desyrel) 100 mg PO HS [facility] Last Admin: 06/03/18 21:02 Dose: 100 mg - Labs Labs: 05/31/18 10:55 06/03/18 08:47 Assessment and Plan (1) COPD exacerbation Status: Acute (2) Diabetes Status: Acute (3) HTN (hypertension) Status: Acute
[2018-06-04] MEDS: Azithromycin 500 MG in Sodium Chloride 0.9% 250 ML IVPB SCH (18:54)
[2018-06-05] MEDS: Albuterol-Ipratrop 3 mg / 0.5 (3 ml) UD INH SCH ×5 (03:13→20:43)
[2018-06-05] MEDS: Enoxaparin 40 mg Syringe SC SCH (09:08)
[2018-06-05] MEDS: Methadone 40 mg Tab PO SCH (09:08)
[2018-06-05] MEDS: MethylPREDNISolone 40 mg Vial IVP SCH ×2 (13:05→21:18)
--- NOTE | 2018-06-05 14:34 | CP.PCM.PN ---
Subjective - Date & Time of Evaluation Date of Evaluation: 06/05/18 Time of Evaluation: 09:45 - Subjective Subjective: clinically same Objective - Vital Signs/Intake and Output Vital Signs (last 24 hours): Temp Pulse Resp BP Pulse Ox 98.5 F 75 18 120/67 96 06/05/18 07:43 06/05/18 07:43 06/05/18 07:43 06/05/18 07:43 06/05/18 07:43 Intake and Output: 06/05/18 06/05/18 06:59 18:59 Intake Total 1050 Balance 1050 - Medications Medications: Current Medications Albuterol/Ipratropium (Duoneb 3 Mg/0.5 Mg (3 Ml) Ud) 3 ml INH RQ4 [facility] Last Admin: 06/05/18 12:35 Dose: 3 ml Enoxaparin Sodium (Lovenox) 40 mg SC DAILY [facility] Last Admin: 06/05/18 09:08 Dose: 40 mg Escitalopram Oxalate (Lexapro) 10 mg PO DAILY [facility] Last Admin: 06/05/18 09:08 Dose: 10 mg Fluticasone/Vilanterol (Breo Ellipta 100-25 Mcg Inh) 1 puff INH RQ24 [facility] Gabapentin (Neurontin) 300 mg PO BID [facility] Last Admin: 06/05/18 09:08 Dose: 300 mg Guaifenesin (Robitussin) 100 mg PO Q4H PRN PRN Reason: Cough Last Admin: 06/04/18 17:14 Dose: 100 mg Hydroxyzine HCl (Atarax) 25 mg PO BID PRN PRN Reason: Anxiety Last Admin: 06/02/18 18:52 Dose: 25 mg Azithromycin 500 mg/ Sodium (Chloride) 250 mls @ 250 mls/hr IVPB Q24H [facility]; Protocol Last Admin: 06/04/18 18:54 Dose: 250 mls/hr Methadone HCl (Methadone) 20 mg PO DAILY [facility] Last Admin: 06/05/18 09:08 Dose: 20 mg Methadone HCl (Methadose) 40 mg PO DAILY [facility] Last Admin: 06/05/18 09:08 Dose: 40 mg Methylprednisolone (Solu-Medrol) 40 mg IVP Q8H [facility] Last Admin: 06/05/18 13:05 Dose: 40 mg Montelukast Sodium (Singulair) 10 mg PO HS [facility] Last Admin: 06/04/18 21:06 Dose: 10 mg Quetiapine Fumarate (Seroquel) 25 mg PO TID [facility] Last Admin: 06/05/18 13:05 Dose: 25 mg Trazodone HCl (Desyrel) 100 mg PO HS [facility] Last Admin: 06/04/18 21:06 Dose: 100 mg - Labs Labs: 05/31/18 10:55 06/03/18 08:47 - Constitutional Appears: Well - Head Exam Head Exam: ATRAUMATIC, NORMAL INSPECTION, NORMOCEPHALIC - Eye Exam Eye Exam: EOMI, Normal appearance, PERRL Pupil Exam: NORMAL ACCOMODATION, PERRL - ENT Exam ENT Exam: Mucous Membranes Moist, Normal Exam - Neck Exam Neck Exam: Full ROM, Normal Inspection. absent: Lymphadenopathy - Respiratory Exam Respiratory Exam: Decreased Breath Sounds - Cardiovascular Exam Cardiovascular Exam: REGULAR RHYTHM, +S1, +S2 - GI/Abdominal Exam GI & Abdominal Exam: Soft, Diminished Bowel Sounds - Rectal Exam Rectal Exam: Deferred Assessment and Plan - Assessment and Plan (Free Text) Plan: COPD exacerbation - Pulm consulted, Dr. Church. F/U recommendations - NC prn to maintain O2>92% - Duoneb Q4 [facility] - Solumedrol 60 mg IVP Q6H - Montelukast 10mg PO HS - On Breo-Ellipta daily - Robitussin PRN - Azithromycin 500mg IVPB q24h (started on 04/16) - Continue to monitor HTN - Normotensive - Will continue to monitor Anxiety - Continue to monitor- CBT and Supportive therapy * Atarax 25 mg PO BID PRN * Seroquel 25mg PO TID * Trazodone 100mg PO HS * Lexapro 10mg PO Daily * Gabapentin 300 mg PO BID * Psych supportive therapy * F/U Psych recs Heroin abuse - Psych consulted, Dr. Reyes * Methadone treatment per psych. * Patient has been on 60 mg Methadone for the past 3 months. Advise continued outpatient therapy. * Cessation counseling Prophylaxis - SCDs - Lovenox 40mg SC daily - PT eval/treat
[2018-06-05] MEDS: Azithromycin 500 MG in Sodium Chloride 0.9% 250 ML IVPB SCH (18:41)
[2018-06-05] MEDS: guaiFENesin 100 mg/5 ml Syrup UD PO PRN (21:18)
[2018-06-06] MEDS: MethylPREDNISolone 40 mg Vial IVP SCH ×3 (05:45→21:10)
[2018-06-06 07:13] LABS: BASO # 0.1 K/uL (0.0-0.2); BASO % 0.4 % (0.0-2.0); HEMOGLOBIN 12.6 g/dL (11.0-16.0); LYMPH % 6.9 % (20.0-40.0); MEAN CORPUSCULAR HEMOGLOBIN 32.5 pg (27.0-31.0); MEAN CORPUSCULAR HGB CONC 34.3 g/dL (33.0-37.0); MEAN PLATELET VOLUME 8.9 fL (7.2-11.7); MONO # 0.8 K/uL (0.0-0.8); MONO % 5.4 % (0.0-10.0); NEUT # 12.4 K/uL (1.8-7.0); NEUT % 87.3 % (50.0-75.0); NRBC % 0.1 % (0.0-2.0); PLATELET COUNT 162 K/uL (130-400); RBC 3.87 Mil/uL (3.80-5.20); RED CELL DISTRIBUTION WIDTH 14.6 % (11.5-14.5); WHITE BLOOD COUNT 14.3 K/uL (4.8-10.8)
[2018-06-06 07:43] LABS: ALBUMIN 2.8 g/dL (3.5-5.0); ALT/SGPT 61 U/L (9-52); AST/SGOT 18 U/L (14-36); BLOOD UREA NITROGEN 19 mg/dL (7-17); CALCIUM 8.4 mg/dl (8.6-10.4); GFR NON-AFRICAN AMERICAN > 60
[2018-06-06 08:30] LABS: LYMPHOCYTE 5 % (20-40); MONOCYTE 2 % (0-10); NEUTROPHIL 93 % (50-75); PLATELET ESTIMATE NORMAL (NORMAL); TOTAL CELLS COUNTED 100
--- NOTE | 2018-06-06 09:37 | CP.PCM.PN ---
Subjective - Date & Time of Evaluation Date of Evaluation: 06/06/18 Time of Evaluation: 09:35 - Subjective Subjective: PGY-[address] Nicki Rico's Service Patient seen and examined at bedside. Per nursing no acute events occurred overnight. Patient reports an improvement in breathing since being admitted to the hospital. Patient does repot a productive cough with yellow phlegm. Patient denies any chest pain, shortness of breath, fevers, chills, syncopal episodes, or any other complaints. 57 year old female with a past medical history of hypertension, anxiety, copd, and heroin abuse admitted for copd exacerbation. Medical history: htn, anxiety, copd Medications: Surgical history: Allergies: Penicillins Social history: Former heroin abuse. On methadone treatment program. Current smoker Objective - Vital Signs/Intake and Output Vital Signs (last 24 hours): Temp Pulse Resp BP Pulse Ox 98.2 F 59 L 20 120/74 96 06/06/18 07:25 06/06/18 07:25 06/06/18 07:25 06/06/18 07:25 06/06/18 07:25 Intake and Output: 06/06/18 06/06/18 06:59 18:59 Intake Total 750 Balance 750 - Medications Medications: Current Medications Enoxaparin Sodium (Lovenox) 40 mg SC DAILY [facility] Last Admin: 06/05/18 09:08 Dose: 40 mg Escitalopram Oxalate (Lexapro) 10 mg PO DAILY [facility] Last Admin: 06/05/18 09:08 Dose: 10 mg Fluticasone/Vilanterol (Breo Ellipta 100-25 Mcg Inh) 1 puff INH RQ24 [facility] Gabapentin (Neurontin) 300 mg PO BID [facility] Last Admin: 06/05/18 17:12 Dose: 300 mg Guaifenesin (Robitussin) 100 mg PO Q4H PRN PRN Reason: Cough Last Admin: 06/05/18 21:18 Dose: 100 mg Hydroxyzine HCl (Atarax) 25 mg PO BID PRN PRN Reason: Anxiety Last Admin: 06/05/18 19:30 Dose: 25 mg Azithromycin 500 mg/ Sodium (Chloride) 250 mls @ 250 mls/hr IVPB Q24H [facility]; P rotocol Last Admin: 10/07/18 18:41 Dose: 250 mls/hr Methadone HCl (Methadone) 20 mg PO DAILY [facility] Last Admin: 06/05/18 09:08 Dose: 20 mg Methadone HCl (Methadose) 40 mg PO DAILY [facility] Last Admin: 06/05/18 09:08 Dose: 40 mg Methylprednisolone (Solu-Medrol) 40 mg IVP Q8H [facility] Last Admin: 06/06/18 05:45 Dose: 40 mg Montelukast Sodium (Singulair) 10 mg PO [facility] Last Admin: 06/05/18 21:18 Dose: 10 mg Quetiapine Fumarate (Seroquel) 25 mg PO TID [facility] Last Admin: 06/05/18 17:12 Dose: 25 mg Trazodone HCl (Desyrel) 100 mg PO [facility] Last Admin: 06/05/18 21:18 Dose: 100 mg - Labs Labs: 06/06/18 06:48 06/06/18 06:48 Assessment and Plan - Assessment and Plan (Free Text) Plan: COPD exacerbation - Pulm consulted, Dr. Church. Help appreciated - NC prn to maintain O2>92% - Solumedrol 40 mg IVP Q8H - Montelukast 10mg PO HS - On Breo-Ellipta daily - Robitussin 100mg PO Q4 H PRN - Azithromycin 500mg IVPB q24h (started on 04/16) - Continue to monitor HTN - Normotensive - Will continue to monitor Anxiety - Continue to monitor- CBT and Supportive therapy * Atarax 25 mg PO BID PRN * Seroquel 25mg PO TID * Trazodone 100mg PO HS * Lexapro 10mg PO Daily * Gabapentin 300 mg PO BID * Psych supportive therapy * F/U Psych recs Heroin abuse - Psych consulted, Dr. Reyes * Methadone treatment per psych. * Patient has been on 60 mg Methadone for the past 3 months. Advise continued outpatient therapy. * Cessation counseling Prophylaxis - SCDs - Lovenox 40mg SC daily - PT eval/treat Will discuss case with Attending Dr. Nicki Rico. All management per Dr. Nicki Rico.
[2018-06-06] MEDS: Enoxaparin 40 mg Syringe SC SCH (09:54)
[2018-06-06] MEDS: Methadone 40 mg Tab PO SCH (09:54)
[2018-06-06] MEDS: guaiFENesin 100 mg/5 ml Syrup UD PO PRN ×2 (09:54→21:10)
[2018-06-06] MEDS: Azithromycin 500 MG in Sodium Chloride 0.9% 250 ML IVPB SCH (18:08)
--- NOTE | 2018-06-06 18:22 | CP.PCM.PN ---
Subjective - Date & Time of Evaluation Date of Evaluation: 06/06/18 Time of Evaluation: 09:00 - Subjective Subjective: clinically same Objective - Vital Signs/Intake and Output Vital Signs (last 24 hours): Temp Pulse Resp BP Pulse Ox 97.8 F 64 21 108/67 96 06/06/18 16:00 06/06/18 16:00 06/06/18 16:00 06/06/18 09:52 06/06/18 16:00 Intake and Output: 06/06/18 06/06/18 06:59 18:59 Intake Total 750 Balance 750 - Medications Medications: Current Medications Enoxaparin Sodium (Lovenox) 40 mg SC DAILY [facility] Last Admin: 06/06/18 09:54 Dose: 40 mg Escitalopram Oxalate (Lexapro) 10 mg PO DAILY [facility] Last Admin: 06/06/18 09:53 Dose: 10 mg Fluticasone/Vilanterol (Breo Ellipta 100-25 Mcg Inh) 1 puff INH RQ24 [facility] Gabapentin (Neurontin) 300 mg PO BID [facility] Last Admin: 06/06/18 09:53 Dose: 300 mg Guaifenesin (Robitussin) 100 mg PO Q4H PRN PRN Reason: Cough Last Admin: 06/06/18 09:54 Dose: 100 mg Hydroxyzine HCl (Atarax) 25 mg PO BID PRN PRN Reason: Anxiety Last Admin: 06/05/18 19:30 Dose: 25 mg Azithromycin 500 mg/ Sodium (Chloride) 250 mls @ 250 mls/hr IVPB Q24H [facility]; Protocol Last Admin: 06/06/18 18:08 Dose: 250 mls/hr Methadone HCl (Methadone) 20 mg PO DAILY [facility] Last Admin: 06/06/18 09:53 Dose: 20 mg Methadone HCl (Methadose) 40 mg PO DAILY [facility] Last Admin: 06/06/18 09:54 Dose: 40 mg Methylprednisolone (Solu-Medrol) 40 mg IVP Q8H [facility] Last Admin: 06/06/18 14:43 Dose: 40 mg Montelukast Sodium (Singulair) 10 mg PO HS [facility] Last Admin: 06/05/18 21:18 Dose: 10 mg Quetiapine Fumarate (Seroquel) 25 mg PO TID [facility] Last Admin: 06/06/18 18:08 Dose: 25 mg Trazodone HCl (Desyrel) 100 mg PO HS [facility] Last Admin: 06/05/18 21:18 Dose: 100 mg - Labs Labs: 06/06/18 06:48 06/06/18 06:48 - Constitutional Appears: Non-toxic, No Acute Distress - Head Exam Head Exam: ATRAUMATIC, NORMOCEPHALIC - Eye Exam Eye Exam: EOMI, Normal appearance - ENT Exam ENT Exam: Mucous Membranes Moist - Neck Exam Neck Exam: absent: Lymphadenopathy, Thyromegaly - Respiratory Exam Respiratory Exam: Decreased Breath Sounds - Cardiovascular Exam Cardiovascular Exam: +S1, +S2 - GI/Abdominal Exam GI & Abdominal Exam: Diminished Bowel Sounds - Rectal Exam Rectal Exam: Deferred Assessment and Plan - Assessment and Plan (Free Text) Plan: COPD exacerbation - Pulm consulted, Dr. Church. F/U recommendations - NC prn to maintain O2>92% - Duoneb Q4 [facility] - Solumedrol 60 mg IVP Q6H - Montelukast 10mg PO HS - On Breo-Ellipta daily - Robitussin PRN - Azithromycin 500mg IVPB q24h (started on 04/16) - Continue to monitor HTN - Normotensive - Will continue to monitor Anxiety - Continue to monitor- CBT and Supportive therapy * Atarax 25 mg PO BID PRN * Seroquel 25mg PO TID * Trazodone 100mg PO HS * Lexapro 10mg PO Daily * Gabapentin 300 mg PO BID * Psych supportive therapy * F/U Psych recs Heroin abuse - Psych consulted, Dr. Reyes * Methadone treatment per psych. * Patient has been on 60 mg Methadone for the past 3 months. Advise continued outpatient therapy. * Cessation counseling Prophylaxis - SCDs - Lovenox 40mg SC daily - PT eval/treat
--- NOTE | 2018-06-06 18:25 | CP.PCM.PN ---
Subjective - Date & Time of Evaluation Date of Evaluation: 06/06/18 Time of Evaluation: 18:25 Objective - Vital Signs/Intake and Output Vital Signs (last 24 hours): Temp Pulse Resp BP Pulse Ox 97.8 F 64 21 108/67 96 06/06/18 16:00 06/06/18 16:00 06/06/18 16:00 06/06/18 09:52 06/06/18 16:00 Intake and Output: 06/06/18 06/06/18 06:59 18:59 Intake Total 750 Balance 750 - Medications Medications: Current Medications Enoxaparin Sodium (Lovenox) 40 mg SC DAILY [facility] Last Admin: 06/06/18 09:54 Dose: 40 mg Escitalopram Oxalate (Lexapro) 10 mg PO DAILY [facility] Last Admin: 06/06/18 09:53 Dose: 10 mg Fluticasone/Vilanterol (Breo Ellipta 100-25 Mcg Inh) 1 puff INH RQ24 [facility] Gabapentin (Neurontin) 300 mg PO BID [facility] Last Admin: 06/06/18 09:53 Dose: 300 mg Guaifenesin (Robitussin) 100 mg PO Q4H PRN PRN Reason: Cough Last Admin: 06/06/18 09:54 Dose: 100 mg Hydroxyzine HCl (Atarax) 25 mg PO BID PRN PRN Reason: Anxiety Last Admin: 06/05/18 19:30 Dose: 25 mg Azithromycin 500 mg/ Sodium (Chloride) 250 mls @ 250 mls/hr IVPB Q24H [facility]; Protocol Last Admin: 06/06/18 18:08 Dose: 250 mls/hr Methadone HCl (Methadone) 20 mg PO DAILY [facility] Last Admin: 06/06/18 09:53 Dose: 20 mg Methadone HCl (Methadose) 40 mg PO DAILY [facility] Last Admin: 06/06/18 09:54 Dose: 40 mg Methylprednisolone (Solu-Medrol) 40 mg IVP Q8H [facility] Last Admin: 06/06/18 14:43 Dose: 40 mg Montelukast Sodium (Singulair) 10 mg PO [facility] Last Admin: 06/05/18 21:18 Dose: 10 mg Quetiapine Fumarate (Seroquel) 25 mg PO TID [facility] Last Admin: 06/06/18 18:08 Dose: 25 mg Trazodone HCl (Desyrel) 100 mg PO [facility] Last Admin: 06/05/18 21:18 Dose: 100 mg - Labs Labs: 06/06/18 06:48 06/06/18 06:48 Assessment and Plan (1) COPD exacerbation Status: Acute (2) Diabetes Status: Acute (3) HTN (hypertension) Status: Acute
[2018-06-07] MEDS: MethylPREDNISolone 40 mg Vial IVP SCH ×3 (06:20→21:12)
--- NOTE | 2018-06-07 08:50 | CP.PCM.PN ---
Subjective - Date & Time of Evaluation Date of Evaluation: 06/07/18 Time of Evaluation: 08:50 - Subjective Subjective: PGY-[address] Nicki Rico's Service Patient seen and examined at bedside. Per nursing no acute events occurred overnight. Patient reports an improvement in breathing since being admitted to the hospital. Patient does repot a productive cough with yellow phlegm. Patient denies any chest pain, shortness of breath, fevers, chills, syncopal episodes, or any other complaints. Objective - Vital Signs/Intake and Output Vital Signs (last 24 hours): Temp Pulse Resp BP Pulse Ox 98 F 51 L 18 124/69 97 06/07/18 08:08 06/07/18 08:08 06/07/18 08:08 06/07/18 08:08 06/07/18 08:08 Intake and Output: 06/07/18 06/07/18 06:59 18:59 Intake Total 850 Balance 850 - Medications Medications: Current Medications Enoxaparin Sodium (Lovenox) 40 mg SC DAILY [facility] Last Admin: 06/06/18 09:54 Dose: 40 mg Escitalopram Oxalate (Lexapro) 10 mg PO DAILY [facility] Last Admin: 06/06/18 09:53 Dose: 10 mg Fluticasone/Vilanterol (Breo Ellipta 100-25 Mcg Inh) 1 puff INH RQ24 [facility] Gabapentin (Neurontin) 300 mg PO BID [facility] Last Admin: 06/06/18 18:58 Dose: 300 mg Guaifenesin (Robitussin) 100 mg PO Q4H PRN PRN Reason: Cough Last Admin: 06/06/18 21:10 Dose: 100 mg Hydroxyzine HCl (Atarax) 25 mg PO BID PRN PRN Reason: Anxiety Last Admin: 06/05/18 19:30 Dose: 25 mg Azithromycin 500 mg/ Sodium (Chloride) 250 mls @ 250 mls/hr IVPB Q24H [facility]; Protocol Last Admin: 06/06/18 18:08 Dose: 250 mls/hr Methadone HCl (Methadone) 20 mg PO DAILY [facility] Last Admin: 06/06/18 09:53 Dose: 20 mg Methadone HCl (Methadose) 40 mg PO DAILY [facility] Last Admin: 06/06/18 09:54 Dose: 40 mg Methylprednisolone (Solu-Medrol) 40 mg IVP Q8H [facility] Last Admin: 06/07/18 06:20 Dose: 40 mg Montelukast Sodium (Singulair) 10 mg PO [facility] Last Admin: 06/06/18 21:10 Dose: 10 mg Quetiapine Fumarate (Seroquel) 25 mg PO TID [facility] Last Admin: 06/06/18 18:08 Dose: 25 mg Trazodone HCl (Desyrel) 100 mg PO [facility] Last Admin: 06/06/18 21:11 Dose: 100 mg - Labs Labs: 06/06/18 06:48 06/06/18 06:48 - Head Exam Head Exam: NORMAL INSPECTION - Eye Exam Eye Exam: EOMI, Normal appearance, PERRL. absent: Periorbital tenderness Pupil Exam: NORMAL ACCOMODATION, PERRL. absent: Irregular, Unequal - ENT Exam ENT Exam: Mucous Membranes Moist, Normal Oropharynx - Neck Exam Neck Exam: absent: Lymphadenopathy, Thyromegaly - Respiratory Exam Respiratory Exam: Clear to Ausculation Bilateral, NORMAL BREATHING PATTERN. absent: Prolonged Expiratory Phase, Respiratory Distress - Cardiovascular Exam Cardiovascular Exam: REGULAR RHYTHM, +S1, +S2 - GI/Abdominal Exam GI & Abdominal Exam: Soft, Normal Bowel Sounds. absent: Rigid, Hyperactive Bowel Sounds - Extremities Exam Extremities Exam: Full ROM. absent: Pedal Edema - Back Exam Back Exam: NORMAL INSPECTION. absent: CVA tenderness (R), paraspinal tenderness - Neurological Exam Neurological Exam: Alert, Awake, Oriented x3 - Psychiatric Exam Psychiatric exam: Normal Affect, Normal Mood. absent: Depressed - Skin Skin Exam: absent: Dry Assessment and Plan - Assessment and Plan (Free Text) Plan: COPD exacerbation - Pulm consulted, Dr. Church. Help appreciated - NC prn to maintain O2>92% - Solumedrol 40 mg IVP Q8H - Montelukast 10mg PO HS - On Breo-Ellipta daily - Robitussin 100mg PO Q4 H PRN - Azithromycin 500mg IVPB q24h (started on 04/16) - Continue to monitor HTN - Normotensive - Will continue to monitor Anxiety - Continue to monitor- CBT and Supportive therapy * Atarax 25 mg PO BID PRN * Seroquel 25mg PO TID * Trazodone 100mg PO HS * Lexapro 10mg PO Daily * Gabapentin 300 mg PO BID * Psych supportive therapy * F/U Psych recs Heroin abuse - Psych consulted, Dr. Reyes * Methadone treatment per psych. * Patient has been on 60 mg Methadone for the past 3 months. Advise continued outpatient therapy. * Cessation counseling Prophylaxis - SCDs - Lovenox 40mg SC daily - PT eval/treat Will discuss case with Attending Dr. Nicki Rico. All management per Dr. Nicki Rico.
[2018-06-07] MEDS: Methadone 40 mg Tab PO SCH (09:22)
[2018-06-07] MEDS: Enoxaparin 40 mg Syringe SC SCH (09:22)
--- NOTE | 2018-06-07 15:13 | CP.PCM.PN ---
Subjective - Date & Time of Evaluation Date of Evaluation: 06/07/18 Time of Evaluation: 09:00 - Subjective Subjective: clinically same Objective - Vital Signs/Intake and Output Vital Signs (last 24 hours): Temp Pulse Resp BP Pulse Ox 98 F 110 H 18 124/69 98 06/07/18 08:08 06/07/18 13:11 06/07/18 08:08 06/07/18 08:08 06/07/18 13:11 Intake and Output: 06/07/18 06/07/18 06:59 18:59 Intake Total 850 500 Balance 850 500 - Medications Medications: Current Medications Enoxaparin Sodium (Lovenox) 40 mg SC DAILY [facility] Last Admin: 06/07/18 09:22 Dose: 40 mg Escitalopram Oxalate (Lexapro) 10 mg PO DAILY [facility] Last Admin: 06/07/18 09:22 Dose: 10 mg Fluticasone/Vilanterol (Breo Ellipta 100-25 Mcg Inh) 1 puff INH RQ24 [facility] Gabapentin (Neurontin) 300 mg PO BID [facility] Last Admin: 06/07/18 09:22 Dose: 300 mg Guaifenesin (Robitussin) 100 mg PO Q4H PRN PRN Reason: Cough Last Admin: 06/06/18 21:10 Dose: 100 mg Hydroxyzine HCl (Atarax) 25 mg PO BID PRN PRN Reason: Anxiety Last Admin: 06/05/18 19:30 Dose: 25 mg Azithromycin 500 mg/ Sodium (Chloride) 250 mls @ 250 mls/hr IVPB Q24H [facility]; Protocol Last Admin: 06/06/18 18:08 Dose: 250 mls/hr Methadone HCl (Methadone) 20 mg PO DAILY [facility] Last Admin: 06/07/18 09:22 Dose: 20 mg Methadone HCl (Methadose) 40 mg PO DAILY [facility] Last Admin: 06/07/18 09:22 Dose: 40 mg Methylprednisolone (Solu-Medrol) 40 mg IVP Q8H [facility] Last Admin: 06/07/18 13:46 Dose: 40 mg Montelukast Sodium (Singulair) 10 mg PO HS [facility] Last Admin: 06/06/18 21:10 Dose: 10 mg Quetiapine Fumarate (Seroquel) 25 mg PO TID [facility] Last Admin: 06/07/18 13:46 Dose: 25 mg Trazodone HCl (Desyrel) 100 mg PO HS [facility] Last Admin: 06/06/18 21:11 Dose: 100 mg - Labs Labs: 06/06/18 06:48 06/06/18 06:48 - Constitutional Appears: Well - Head Exam Head Exam: ATRAUMATIC, NORMAL INSPECTION, NORMOCEPHALIC - Eye Exam Eye Exam: EOMI, Normal appearance, PERRL Pupil Exam: NORMAL ACCOMODATION, PERRL - ENT Exam ENT Exam: Mucous Membranes Moist, Normal Exam - Neck Exam Neck Exam: Full ROM, Normal Inspection. absent: Lymphadenopathy - Respiratory Exam Respiratory Exam: Decreased Breath Sounds - Cardiovascular Exam Cardiovascular Exam: REGULAR RHYTHM, +S1, +S2 - GI/Abdominal Exam GI & Abdominal Exam: Soft, Diminished Bowel Sounds - Rectal Exam Rectal Exam: Deferred Assessment and Plan - Assessment and Plan (Free Text) Plan: COPD exacerbation - Pulm consulted, Dr. Church. Help appreciated - NC prn to maintain O2>92% - Solumedrol 40 mg IVP Q8H - Montelukast 10mg PO HS - On Breo-Ellipta daily - Robitussin 100mg PO Q4 H PRN - Azithromycin 500mg IVPB q24h (started on 04/16) - Continue to monitor HTN - Normotensive - Will continue to monitor Anxiety - Continue to monitor- CBT and Supportive therapy * Atarax 25 mg PO BID PRN * Seroquel 25mg PO TID * Trazodone 100mg PO HS * Lexapro 10mg PO Daily * Gabapentin 300 mg PO BID * Psych supportive therapy * F/U Psych recs Heroin abuse - Psych consulted, Dr. Reyes * Methadone treatment per psych. * Patient has been on 60 mg Methadone for the past 3 months. Advise continued outpatient therapy. * Cessation counseling Prophylaxis - SCDs - Lovenox 40mg SC daily - PT eval/treat
--- NOTE | 2018-06-07 16:58 | CP.PCM.PN ---
Subjective - Date & Time of Evaluation Date of Evaluation: 06/07/18 Time of Evaluation: 16:58 Objective - Vital Signs/Intake and Output Vital Signs (last 24 hours): Temp Pulse Resp BP Pulse Ox 98.1 F 62 18 111/69 97 06/07/18 15:26 06/07/18 15:26 06/07/18 15:26 06/07/18 15:26 06/07/18 15:26 Intake and Output: 06/07/18 06/07/18 06:59 18:59 Intake Total 850 500 Balance 850 500 - Medications Medications: Current Medications Enoxaparin Sodium (Lovenox) 40 mg SC DAILY [facility] Last Admin: 06/07/18 09:22 Dose: 40 mg Escitalopram Oxalate (Lexapro) 10 mg PO [facility]ILY [facility] Last Admin: 06/07/18 09:22 Dose: 10 mg Fluticasone/Vilanterol (Breo Ellipta 100-25 Mcg Inh) 1 puff INH RQ24 [facility] Gabapentin (Neurontin) 300 mg PO BID [facility] Last Admin: 06/07/18 09:22 Dose: 300 mg Guaifenesin (Robitussin) 100 mg PO Q4H PRN PRN Reason: Cough Last Admin: 06/06/18 21:10 Dose: 100 mg Hydroxyzine HCl (Atarax) 25 mg PO BID PRN PRN Reason: Anxiety Last Admin: 06/05/18 19:30 Dose: 25 mg Azithromycin 500 mg/ Sodium ([facility]) 250 mls @ 250 mls/hr IVPB Q24H [facility]; Protocol Last Admin: 06/06/18 18:08 Dose: 250 mls/hr Methadone HCl (Methadone) 20 mg PO DAILY [facility] Last Admin: 06/07/18 09:22 Dose: 20 mg Methadone HCl (Methadose) 40 mg PO DAILY [facility] Last Admin: 06/07/18 09:22 Dose: 40 mg Methylprednisolone (Solu-Medrol) 40 mg IVP Q8H [facility] Last Admin: 06/07/18 13:46 Dose: 40 mg Montelukast Sodium (Singulair) 10 mg PO HS [facility] Last Admin: 06/06/18 21:10 Dose: 10 mg Quetiapine Fumarate (Seroquel) 25 mg PO TID [facility] Last Admin: 06/07/18 13:46 Dose: 25 mg Trazodone HCl (Desyrel) 100 mg PO HS [facility] Last Admin: 06/06/18 21:11 Dose: 100 mg - Labs Labs: 06/06/18 06:48 06/06/18 06:48 Assessment and Plan (1) COPD exacerbation Status: Acute (2) Diabetes Status: Acute (3) HTN (hypertension) Status: Acute
[2018-06-07] MEDS: Azithromycin 500 MG in Sodium Chloride 0.9% 250 ML IVPB SCH (18:05)
[2018-06-08 00:25] VITALS: RESP 20
[2018-06-08] MEDS: MethylPREDNISolone 40 mg Vial IVP SCH ×3 (05:58→22:13)
--- NOTE | 2018-06-08 07:14 | CP.PCM.PN ---
Subjective - Date & Time of Evaluation Date of Evaluation: 06/08/18 Time of Evaluation: 07:14 - Subjective Subjective: PGY-[address] Nicki Rico's Service Patient seen and examined at bedside. Per nursing no acute events occurred overnight. Patient reports an improvement in breathing since being admitted to the hospital. Patient does repot a productive cough with yellow phlegm. Patient denies any chest pain, shortness of breath, fevers, chills, syncopal episodes, or any other complaints. Objective - Vital Signs/Intake and Output Vital Signs (last 24 hours): Temp Pulse Resp BP Pulse Ox 97.9 F 97 H 20 153/92 H 98 06/08/18 00:00 06/08/18 00:00 06/08/18 00:00 06/08/18 00:00 06/08/18 00:00 Intake and Output: 06/08/18 06/08/18 06:59 18:59 Intake Total 1050 Balance 1050 - Medications Medications: Current Medications Enoxaparin Sodium (Lovenox) 40 mg SC DAILY [facility] Last Admin: 06/07/18 09:22 Dose: 40 mg Escitalopram Oxalate (Lexapro) 10 mg PO DAILY [facility] Last Admin: 06/07/18 09:22 Dose: 10 mg Fluticasone/Vilanterol (Breo Ellipta 100-25 Mcg Inh) 1 puff INH RQ24 [facility] Gabapentin (Neurontin) 300 mg PO BID [facility] Last Admin: 06/07/18 17:15 Dose: 300 mg Guaifenesin (Robitussin) 100 mg PO Q4H PRN PRN Reason: Cough Last Admin: 06/06/18 21:10 Dose: 100 mg Hydroxyzine HCl (Atarax) 25 mg PO BID PRN PRN Reason: Anxiety Last Admin: 06/07/18 20:40 Dose: 25 mg Azithromycin 500 mg/ Sodium (Chloride) 250 mls @ 250 mls/hr IVPB Q24H [facility]; Protocol Last Admin: 06/07/18 18:05 Dose: 250 mls/hr Methadone HCl (Methadone) 20 mg PO DAILY [facility] Last Admin: 06/07/18 09:22 Dose: 20 mg Methadone HCl (Methadose) 40 mg PO DAILY [facility] Last Admin: 06/07/18 09:22 Dose: 40 mg Methylprednisolone (Solu-Medrol) 40 mg IVP Q8H [facility] Last Admin: 06/08/18 05:58 Dose: 40 mg Montelukast Sodium (Singulair) 10 mg PO HS [facility] Last Admin: 06/07/18 21:12 Dose: 10 mg Quetiapine Fumarate (Seroquel) 25 mg PO TID [facility] Last Admin: 06/07/18 17:15 Dose: 25 mg Trazodone HCl (Desyrel) 100 mg PO [facility] Last Admin: 06/07/18 21:12 Dose: 100 mg - Labs Labs: 06/06/18 06:48 06/06/18 06:48 - Head Exam Head Exam: ATRAUMATIC, NORMAL INSPECTION - Eye Exam Eye Exam: EOMI, Normal appearance, PERRL Pupil Exam: NORMAL ACCOMODATION, PERRL - ENT Exam ENT Exam: Mucous Membranes Moist, Normal Oropharynx - Respiratory Exam Respiratory Exam: Clear to Ausculation Bilateral, NORMAL BREATHING PATTERN. absent: Prolonged Expiratory Phase, Respiratory Distress - Cardiovascular Exam Cardiovascular Exam: REGULAR RHYTHM, +S1, +S2 - GI/Abdominal Exam GI & Abdominal Exam: Soft, Normal Bowel Sounds. absent: Hyperactive Bowel Sounds - Extremities Exam Extremities Exam: Full ROM, Normal Inspection. absent: Pedal Edema - Back Exam Back Exam: NORMAL INSPECTION. absent: CVA tenderness (R), paraspinal tenderness - Neurological Exam Neurological Exam: Alert, Awake, CN II-XII Intact, Oriented x3 - Psychiatric Exam Psychiatric exam: Normal Affect, Normal Mood - Skin Skin Exam: Dry, Intact Assessment and Plan - Assessment and Plan (Free Text) Plan: COPD exacerbation - Pulm consulted, Dr. Church. Help appreciated - NC prn to maintain O2>92% - Solumedrol 40 mg IVP Q8H - Montelukast 10mg PO HS - On Breo-Ellipta daily - Robitussin 100mg PO Q4 H PRN - Azithromycin 500mg IVPB q24h (started on 04/16) - Continue to monitor -PT evaluation: : desaturation to 83% at 3Liters when ambulation. At rest patient improves to 96%. HTN - Normotensive - Will continue to monitor Anxiety - Continue to monitor- CBT and Supportive therapy * Atarax 25 mg PO BID PRN * Seroquel 25mg PO TID * Trazodone 100mg PO HS * Lexapro 10mg PO Daily * Gabapentin 300 mg PO BID * Psych supportive therapy * F/U Psych recs Heroin abuse - Psych consulted, Dr. Reyes * Methadone treatment per psych. * Patient has been on 60 mg Methadone for the past 3 months. Advise continued outpatient therapy. * Cessation counseling Prophylaxis - SCDs - Lovenox 40mg SC daily - PT eval/treat Will discuss case with Attending Dr. Nicki Rico. All management per Dr. Nicki Rico.
[2018-06-08] MEDS: Enoxaparin 40 mg Syringe SC SCH (09:34)
[2018-06-08] MEDS: Methadone 40 mg Tab PO SCH (09:35)
--- NOTE | 2018-06-08 17:59 | CP.PCM.PN ---
Subjective - Date & Time of Evaluation Date of Evaluation: 06/08/18 Time of Evaluation: 17:58 Objective - Vital Signs/Intake and Output Vital Signs (last 24 hours): Temp Pulse Resp BP Pulse Ox 98.1 F 74 20 128/65 97 06/08/18 16:39 06/08/18 16:39 06/08/18 16:39 06/08/18 16:39 06/08/18 16:39 Intake and Output: 06/08/18 06/08/18 06:59 18:59 Intake Total 1050 Balance 1050 - Medications Medications: Current Medications Enoxaparin Sodium (Lovenox) 40 mg SC DAILY [facility] Last Admin: 06/08/18 09:34 Dose: 40 mg Escitalopram Oxalate (Lexapro) 10 mg PO DAILY [facility] Last Admin: 06/08/18 09:41 Dose: 10 mg Fluticasone/Vilanterol (Breo Ellipta 100-25 Mcg Inh) 1 puff INH RQ24 [facility] Gabapentin (Neurontin) 300 mg PO BID [facility] Guaifenesin (Robitussin) 100 mg PO Q4H PRN PRN Reason: Cough Last Admin: 06/06/18 21:10 Dose: 100 mg Hydroxyzine HCl (Atarax) 25 mg PO BID PRN PRN Reason: Anxiety Last Admin: 06/07/18 20:40 Dose: 25 mg Azithromycin 500 mg/ Sodium (Chloride) 250 mls @ 250 mls/hr IVPB Q24H [facility]; Protocol Last Admin: 06/07/18 18:05 Dose: 250 mls/hr Methadone HCl (Methadone) 20 mg PO DAILY [facility] Last Admin: 06/08/18 09:35 Dose: 20 mg Methadone HCl (Methadose) 40 mg PO DAILY [facility] Last Admin: 06/08/18 09:35 Dose: 40 mg Methylprednisolone (Solu-Medrol) 40 mg IVP Q8H [facility] Last Admin: 06/08/18 14:02 Dose: 40 mg Montelukast Sodium (Singulair) 10 mg PO [facility] Last Admin: 06/07/18 21:12 Dose: 10 mg Quetiapine Fumarate (Seroquel) 25 mg PO TID [facility] Last Admin: 06/08/18 14:02 Dose: 25 mg Trazodone HCl (Desyrel) 100 mg PO HS [facility] Last Admin: 06/07/18 21:12 Dose: 100 mg - Labs Labs: 06/06/18 06:48 06/06/18 06:48 Assessment and Plan (1) COPD exacerbation Status: Acute (2) Diabetes Status: Acute (3) HTN (hypertension) Status: Acute
--- NOTE | 2018-06-08 18:16 | CP.PCM.PN ---
Subjective - Date & Time of Evaluation Date of Evaluation: 06/08/18 Time of Evaluation: 09:30 - Subjective Subjective: clinically same Objective - Vital Signs/Intake and Output Vital Signs (last 24 hours): Temp Pulse Resp BP Pulse Ox 98.1 F 74 20 128/65 97 06/08/18 16:39 06/08/18 16:39 06/08/18 16:39 06/08/18 16:39 06/08/18 16:39 Intake and Output: 06/08/18 06/08/18 06:59 18:59 Intake Total 1050 Balance 1050 - Medications Medications: Current Medications Enoxaparin Sodium (Lovenox) 40 mg SC DAILY [facility] Last Admin: 06/08/18 09:34 Dose: 40 mg Escitalopram Oxalate (Lexapro) 10 mg PO DAILY [facility] Last Admin: 06/08/18 09:41 Dose: 10 mg Fluticasone/Vilanterol (Breo Ellipta 100-25 Mcg Inh) 1 puff INH RQ24 [facility] Gabapentin (Neurontin) 300 mg PO BID [facility] Guaifenesin (Robitussin) 100 mg PO Q4H PRN PRN Reason: Cough Last Admin: 06/06/18 21:10 Dose: 100 mg Hydroxyzine HCl (Atarax) 25 mg PO BID PRN PRN Reason: Anxiety Last Admin: 06/07/18 20:40 Dose: 25 mg Azithromycin 500 mg/ Sodium (Chloride) 250 mls @ 250 mls/hr IVPB Q24H [facility]; Protocol Last Admin: 06/07/18 18:05 Dose: 250 mls/hr Methadone HCl (Methadone) 20 mg PO DAILY [facility] Last Admin: 06/08/18 09:35 Dose: 20 mg Methadone HCl (Methadose) 40 mg PO DAILY [facility] Last Admin: 06/08/18 09:35 Dose: 40 mg Methylprednisolone (Solu-Medrol) 40 mg IVP Q8H [facility] Last Admin: 06/08/18 14:02 Dose: 40 mg Montelukast Sodium (Singulair) 10 mg PO HS [facility] Last Admin: 06/07/18 21:12 Dose: 10 mg Quetiapine Fumarate (Seroquel) 25 mg PO TID [facility] Last Admin: 06/08/18 14:02 Dose: 25 mg Trazodone HCl (Desyrel) 100 mg PO HS [facility] Last Admin: 06/07/18 21:12 Dose: 100 mg - Labs Labs: 06/06/18 06:48 06/06/18 06:48 - Constitutional Appears: Well - Head Exam Head Exam: ATRAUMATIC, NORMAL INSPECTION, NORMOCEPHALIC - Eye Exam Eye Exam: EOMI, Normal appearance, PERRL Pupil Exam: NORMAL ACCOMODATION, PERRL - ENT Exam ENT Exam: Mucous Membranes Moist, Normal Exam - Neck Exam Neck Exam: Full ROM, Normal Inspection. absent: Lymphadenopathy - Respiratory Exam Respiratory Exam: Decreased Breath Sounds - Cardiovascular Exam Cardiovascular Exam: REGULAR RHYTHM, +S1, +S2 - GI/Abdominal Exam GI & Abdominal Exam: Soft, Diminished Bowel Sounds - Rectal Exam Rectal Exam: Deferred Assessment and Plan - Assessment and Plan (Free Text) Plan: COPD exacerbation - Pulm consulted, Dr. Church. Help appreciated - NC prn to maintain O2>92% - Solumedrol 40 mg IVP Q8H - Montelukast 10mg PO HS - On Breo-Ellipta daily - Robitussin 100mg PO Q4 H PRN - Azithromycin 500mg IVPB q24h (started on 04/16) - Continue to monitor -PT evaluation: : desaturation to 83% at 3Liters when ambulation. At rest patient improves to 96%. HTN - Normotensive - Will continue to monitor Anxiety - Continue to monitor- CBT and Supportive therapy * Atarax 25 mg PO BID PRN * Seroquel 25mg PO TID * Trazodone 100mg PO HS * Lexapro 10mg PO Daily * Gabapentin 300 mg PO BID * Psych supportive therapy * F/U Psych recs Heroin abuse - Psych consulted, Dr. Reyes * Methadone treatment per psych. * Patient has been on 60 mg Methadone for the past 3 months. Advise continued outpatient therapy. * Cessation counseling Prophylaxis - SCDs - Lovenox 40mg SC daily - PT eval/treat
[2018-06-08] MEDS: Azithromycin 500 MG in Sodium Chloride 0.9% 250 ML IVPB SCH (18:41)
[2018-06-09] MEDS: MethylPREDNISolone 40 mg Vial IVP SCH ×3 (05:54→21:18)
[2018-06-09] MEDS: Methadone 40 mg Tab PO SCH (09:49)
[2018-06-09] MEDS: Enoxaparin 40 mg Syringe SC SCH (09:49)
[2018-06-09] MEDS: Azithromycin 500 MG in Sodium Chloride 0.9% 250 ML IVPB SCH (18:21)
--- NOTE | 2018-06-09 22:08 | CP.PCM.PN ---
Subjective - Date & Time of Evaluation Date of Evaluation: 06/09/18 Time of Evaluation: 10:00 - Subjective Subjective: clinically same Objective - Vital Signs/Intake and Output Vital Signs (last 24 hours): Temp Pulse Resp BP Pulse Ox 98.3 F 93 H 20 104/60 98 06/09/18 15:23 06/09/18 15:23 06/09/18 15:23 06/09/18 15:23 06/09/18 15:23 Intake and Output: 06/09/18 06/10/18 18:59 06:59 Intake Total 910 Balance 910 - Medications Medications: Current Medications Enoxaparin Sodium (Lovenox) 40 mg SC DAILY [facility] Last Admin: 06/09/18 09:49 Dose: 40 mg Escitalopram Oxalate (Lexapro) 10 mg PO DAILY [facility] Last Admin: 06/09/18 09:49 Dose: 10 mg Fluticasone/Vilanterol (Breo Ellipta 100-25 Mcg Inh) 1 puff INH RQ24 [facility] Gabapentin (Neurontin) 300 mg PO BID [facility] Last Admin: 06/09/18 18:21 Dose: 300 mg Guaifenesin (Robitussin) 100 mg PO Q4H PRN PRN Reason: Cough Last Admin: 06/06/18 21:10 Dose: 100 mg Hydroxyzine HCl (Atarax) 25 mg PO BID PRN PRN Reason: Anxiety Last Admin: 06/09/18 11:20 Dose: 25 mg Methadone HCl (Methadone) 20 mg PO DAILY [facility] Last Admin: 06/09/18 09:49 Dose: 20 mg Methadone HCl (Methadose) 40 mg PO DAILY [facility] Last Admin: 06/09/18 09:49 Dose: 40 mg Methylprednisolone (Solu-Medrol) 40 mg IVP Q8H [facility] Last Admin: 06/09/18 21:18 Dose: 40 mg Montelukast Sodium (Singulair) 10 mg PO HS [facility] Last Admin: 06/09/18 21:18 Dose: 10 mg Quetiapine Fumarate (Seroquel) 25 mg PO TID [facility] Last Admin: 06/09/18 18:21 Dose: 25 mg Trazodone HCl (Desyrel) 100 mg PO HS [facility] Last Admin: 06/09/18 21:17 Dose: 100 mg - Labs Labs: 06/06/18 06:48 06/06/18 06:48 - Constitutional Appears: Well, No Acute Distress - Head Exam Head Exam: ATRAUMATIC, NORMOCEPHALIC - Eye Exam Eye Exam: EOMI, Normal appearance - ENT Exam ENT Exam: Mucous Membranes Moist - Neck Exam Neck Exam: absent: Lymphadenopathy, Thyromegaly - Respiratory Exam Respiratory Exam: Decreased Breath Sounds - Cardiovascular Exam Cardiovascular Exam: +S1, +S2 - GI/Abdominal Exam GI & Abdominal Exam: Diminished Bowel Sounds - Rectal Exam Rectal Exam: Deferred Assessment and Plan - Assessment and Plan (Free Text) Plan: COPD exacerbation - Pulm consulted, Dr. Church. Help appreciated - NC prn to maintain O2>92% - Solumedrol 40 mg IVP Q8H - Montelukast 10mg PO HS - On Breo-Ellipta daily - Robitussin 100mg PO Q4 H PRN - Azithromycin 500mg IVPB q24h (started on 04/16) - Continue to monitor -PT evaluation: : desaturation to 83% at 3Liters when ambulation. At rest patient improves to 96%. : PT steven RAPP Pending approval. HTN - Normotensive - Will continue to monitor Anxiety - Continue to monitor- CBT and Supportive therapy * Atarax 25 mg PO BID PRN * Seroquel 25mg PO TID * Trazodone 100mg PO HS * Lexapro 10mg PO Daily * Gabapentin 300 mg PO BID * Psych supportive therapy * F/U Psych recs Heroin abuse - Psych consulted, Dr. Reyes * Methadone treatment per psych. * Patient has been on 60 mg Methadone for the past 3 months. Advise continued outpatient therapy. * Cessation counseling Prophylaxis - SCDs - Lovenox 40mg SC daily - PT eval/treat Dispo: Pt steven RAPP Awaiting approval.
[2018-06-10] MEDS: MethylPREDNISolone 40 mg Vial IVP SCH ×3 (05:27→22:38)
[2018-06-10] MEDS: Methadone 40 mg Tab PO SCH (09:42)
[2018-06-10] MEDS: guaiFENesin 100 mg/5 ml Syrup UD PO PRN (09:43)
[2018-06-10] MEDS: Enoxaparin 40 mg Syringe SC SCH (09:43)
--- NOTE | 2018-06-10 11:40 | CP.PCM.PN ---
Subjective - Date & Time of Evaluation Date of Evaluation: 06/10/18 Time of Evaluation: 11:40 - Subjective Subjective: PGY-[address] Nicki Rico's Service Patient seen and examined at bedside. Per nursing no acute events occurred overnight. Patient reports an improvement in breathing since being admitted to the hospital. Patient does repot a productive cough with yellow phlegm. Patient denies any chest pain, shortness of breath, fevers, chills, syncopal episodes, or any other complaints. Objective - Vital Signs/Intake and Output Vital Signs (last 24 hours): Temp Pulse Resp BP Pulse Ox 97.8 F 98 H 20 125/74 96 06/10/18 08:02 06/10/18 08:02 06/10/18 08:02 06/10/18 08:02 06/10/18 08:02 - Medications Medications: Current Medications Enoxaparin Sodium (Lovenox) 40 mg SC DAILY [facility] Last Admin: 06/10/18 09:43 Dose: 40 mg Escitalopram Oxalate (Lexapro) 10 mg PO DAILY [facility] Last Admin: 06/10/18 09:43 Dose: 10 mg Fluticasone/Vilanterol (Breo Ellipta 100-25 Mcg Inh) 1 puff INH RQ24 [facility] Gabapentin (Neurontin) 300 mg PO BID [facility] Last Admin: 06/10/18 09:43 Dose: 300 mg Guaifenesin (Robitussin) 100 mg PO Q4H PRN PRN Reason: Cough Last Admin: 06/10/18 09:43 Dose: 100 mg Hydroxyzine HCl (Atarax) 25 mg PO BID PRN PRN Reason: Anxiety Last Admin: 06/10/18 05:25 Dose: 25 mg Methadone HCl (Methadone) 20 mg PO DAILY [facility] Last Admin: 06/10/18 09:41 Dose: 20 mg Methadone HCl (Methadose) 40 mg PO DAILY [facility] Last Admin: 06/10/18 09:42 Dose: 40 mg Methylprednisolone (Solu-Medrol) 40 mg IVP Q8H [facility] Last Admin: 06/10/18 05:27 Dose: 40 mg Montelukast Sodium (Singulair) 10 mg PO HS [facility] Last Admin: 06/09/18 21:18 Dose: 10 mg Quetiapine Fumarate (Seroquel) 25 mg PO TID [facility] Last Admin: 06/10/18 09:43 Dose: 25 mg Trazodone HCl (Desyrel) 100 mg PO HS [facility] Last Admin: 06/09/18 21:17 Dose: 100 mg - Labs Labs: 06/06/18 06:48 06/06/18 06:48 - Head Exam Head Exam: ATRAUMATIC, NORMAL INSPECTION - Eye Exam Eye Exam: EOMI, Normal appearance, PERRL. absent: Periorbital tenderness Pupil Exam: NORMAL ACCOMODATION, PERRL. absent: Irregular - ENT Exam ENT Exam: Mucous Membranes Moist, Normal Oropharynx - Respiratory Exam Respiratory Exam: Clear to Ausculation Bilateral, NORMAL BREATHING PATTERN. absent: Prolonged Expiratory Phase, Respiratory Distress - Cardiovascular Exam Cardiovascular Exam: REGULAR RHYTHM, +S1, +S2 - GI/Abdominal Exam GI & Abdominal Exam: Soft, Normal Bowel Sounds. absent: Rigid, Hyperactive B owel Sounds - Back Exam Back Exam: NORMAL INSPECTION. absent: CVA tenderness (R), paraspinal tenderness - Neurological Exam Neurological Exam: Alert, Awake, Oriented x3 - Psychiatric Exam Psychiatric exam: Normal Affect, Normal Mood - Skin Skin Exam: Dry, Intact Assessment and Plan - Assessment and Plan (Free Text) Plan: COPD exacerbation - Pulm consulted, Dr. Church. Help appreciated - NC prn to maintain O2>92% - Solumedrol 40 mg IVP Q8H - Montelukast 10mg PO HS - On Breo-Ellipta daily - Robitussin 100mg PO Q4 H PRN - Azithromycin 500mg IVPB q24h (started on 04/16) - Continue to monitor -PT evaluation: : desaturation to 83% at 3Liters when ambulation. At rest patient improves to 96%. : PT reccomends [facility]. Pending approval. HTN - Normotensive - Will continue to monitor Anxiety - Continue to monitor- CBT and Supportive therapy * Atarax 25 mg PO BID PRN * Seroquel 25mg PO TID * Trazodone 100mg PO HS * Lexapro 10mg PO Daily * Gabapentin 300 mg PO BID * Psych supportive therapy * F/U Psych recs Heroin abuse - Psych consulted, Dr. Reyes * Methadone treatment per psych. * Patient has been on 60 mg Methadone for the past 3 months. Advise continued outpatient therapy. * Cessation counseling Prophylaxis - SCDs - Lovenox 40mg SC daily - PT eval/treat Dispo: Pt reccomends [facility]. Awaiting approval. Will discuss case with Attending Dr. Nicki Rico. All management per Dr. Nicki Rico.
--- NOTE | 2018-06-10 12:33 | CP.PCM.PN ---
Subjective - Date & Time of Evaluation Date of Evaluation: 06/10/18 Time of Evaluation: 09:00 - Subjective Subjective: clinically same Objective - Vital Signs/Intake and Output Vital Signs (last 24 hours): Temp Pulse Resp BP Pulse Ox 97.8 F 70 20 113/66 96 06/10/18 08:02 06/10/18 09:35 06/10/18 08:02 06/10/18 09:35 06/10/18 08:02 - Medications Medications: Current Medications Enoxaparin Sodium (Lovenox) 40 mg SC DAILY [facility] Last Admin: 06/10/18 09:43 Dose: 40 mg Escitalopram Oxalate (Lexapro) 10 mg PO DAILY [facility] Last Admin: 06/10/18 09:43 Dose: 10 mg Fluticasone/Vilanterol (Breo Ellipta 100-25 Mcg Inh) 1 puff INH RQ24 [facility] Gabapentin (Neurontin) 300 mg PO BID [facility] Last Admin: 06/10/18 09:43 Dose: 300 mg Guaifenesin (Robitussin) 100 mg PO Q4H PRN PRN Reason: Cough Last Admin: 06/10/18 09:43 Dose: 100 mg Hydroxyzine HCl (Atarax) 25 mg PO BID PRN PRN Reason: Anxiety Last Admin: 06/10/18 05:25 Dose: 25 mg Methadone HCl (Methadone) 20 mg PO DAILY [facility] Last Admin: 06/10/18 09:41 Dose: 20 mg Methadone HCl (Methadose) 40 mg PO DAILY [facility] Last Admin: 06/10/18 09:42 Dose: 40 mg Methylprednisolone (Solu-Medrol) 40 mg IVP Q8H [facility] Last Admin: 06/10/18 05:27 Dose: 40 mg Montelukast Sodium (Singulair) 10 mg PO HS [facility] Last Admin: 06/09/18 21:18 Dose: 10 mg Quetiapine Fumarate (Seroquel) 25 mg PO TID [facility] Last Admin: 06/10/18 09:43 Dose: 25 mg Trazodone HCl (Desyrel) 100 mg PO [facility] Last Admin: 06/09/18 21:17 Dose: 100 mg - Labs Labs: 06/06/18 06:48 06/06/18 06:48 - Constitutional Appears: Non-toxic, No Acute Distress - Head Exam Head Exam: ATRAUMATIC - Eye Exam Eye Exam: EOMI, Normal appearance - ENT Exam ENT Exam: Mucous Membranes Moist - Neck Exam Neck Exam: Normal Inspection. absent: Lymphadenopathy, Thyromegaly - Respiratory Exam Respiratory Exam: Decreased Breath Sounds - Cardiovascular Exam Cardiovascular Exam: +S1, +S2 - GI/Abdominal Exam GI & Abdominal Exam: Diminished Bowel Sounds - Rectal Exam Rectal Exam: Deferred Assessment and Plan - Assessment and Plan (Free Text) Plan: COPD exacerbation - Pulm consulted, Dr. Church. Help appreciated - NC prn to maintain O2>92% - Solumedrol 40 mg IVP Q8H - Montelukast 10mg PO HS - On Breo-Ellipta daily - Robitussin 100mg PO Q4 H PRN - Azithromycin 500mg IVPB q24h (started on 04/16) - Continue to monitor -PT evaluation: : desaturation to 83% at 3Liters when ambulation. At rest patient improves to 96%. : PT steven RAPP Pending approval. HTN - Normotensive - Will continue to monitor Anxiety - Continue to monitor- CBT and Supportive therapy * Atarax 25 mg PO BID PRN * Seroquel 25mg PO TID * Trazodone 100mg PO HS * Lexapro 10mg PO Daily * Gabapentin 300 mg PO BID * Psych supportive therapy * F/U Psych recs Heroin abuse - Psych consulted, Dr. Reyes * Methadone treatment per psych. * Patient has been on 60 mg Methadone for the past 3 months. Advise continued outpatient therapy. * Cessation counseling Prophylaxis - SCDs - Lovenox 40mg SC daily - PT eval/treat Dispo: Pt steven RAPP Awaiting approval.
--- NOTE | 2018-06-10 15:04 | CP.PCM.PN ---
Subjective - Date & Time of Evaluation Date of Evaluation: 06/10/18 Time of Evaluation: 15:02 - Subjective Subjective: Patient seen and examined No events overnight Continues to improve clinically Objective - Vital Signs/Intake and Output Vital Signs (last 24 hours): Temp Pulse Resp BP Pulse Ox 97.8 F 70 20 113/66 96 06/10/18 08:02 06/10/18 09:35 06/10/18 08:02 06/10/18 09:35 06/10/18 08:02 - Medications Medications: Current Medications Enoxaparin Sodium (Lovenox) 40 mg SC DAILY [facility] Last Admin: 06/10/18 09:43 Dose: 40 mg Escitalopram Oxalate (Lexapro) 10 mg PO DAILY [facility] Last Admin: 06/10/18 09:43 Dose: 10 mg Fluticasone/Vilanterol (Breo Ellipta 100-25 Mcg Inh) 1 puff INH RQ24 [facility] Gabapentin (Neurontin) 300 mg PO BID [facility] Last Admin: 06/10/18 09:43 Dose: 300 mg Guaifenesin (Robitussin) 100 mg PO Q4H PRN PRN Reason: Cough Last Admin: 06/10/18 09:43 Dose: 100 mg Hydroxyzine HCl (Atarax) 25 mg PO BID PRN PRN Reason: Anxiety Last Admin: 06/10/18 05:25 Dose: 25 mg Azithromycin 250 mg/ Sodium (Chloride) 250 mls @ 166.667 mls/hr IVPB Q24H [facility]; Protocol Methadone HCl (Methadone) 20 mg PO DAILY [facility] Last Admin: 06/10/18 09:41 Dose: 20 mg Methadone HCl (Methadose) 40 mg PO DAILY [facility] Last Admin: 06/10/18 09:42 Dose: 40 mg Montelukast Sodium (Singulair) 10 mg PO HS [facility] Last Admin: 06/09/18 21:18 Dose: 10 mg Quetiapine Fumarate (Seroquel) 25 mg PO TID [facility] Last Admin: 06/10/18 13:01 Dose: 25 mg Trazodone HCl (Desyrel) 100 mg PO HS [facility] Last Admin: 06/09/18 21:17 Dose: 100 mg - Labs Labs: 06/06/18 06:48 06/06/18 06:48 - Head Exam Head Exam: NORMAL INSPECTION - Eye Exam Eye Exam: Normal appearance - ENT Exam ENT Exam: Mucous Membranes Moist - Respiratory Exam Respiratory Exam: Decreased Breath Sounds - Cardiovascular Exam Cardiovascular Exam: REGULAR RHYTHM - GI/Abdominal Exam GI & Abdominal Exam: Soft, Normal Bowel Sounds - Extremities Exam Extremities Exam: Normal Inspection - Neurological Exam Neurological Exam: Alert, Oriented x3 Assessment and Plan (1) COPD exacerbation Status: Acute (2) Diabetes Status: Acute (3) HTN (hypertension) Status: Acute - Assessment and Plan (Free Text) Plan: Decrease Solu-Medrol to 40 mg twice a day Advair Bronchodilators Oxygen supplementation Chest PT
[2018-06-10] MEDS ORDERED: MethylPREDNISolone 40 mg Vial IVP SCH (15:15)
[2018-06-10] MEDS: Azithromycin 250 MG in Sodium Chloride 0.9% 250 ML IVPB SCH (18:00)
[2018-06-11] MEDS: Methadone 40 mg Tab PO SCH (11:27)
[2018-06-11] MEDS: Enoxaparin 40 mg Syringe SC SCH (11:28)
[2018-06-11] MEDS: MethylPREDNISolone 40 mg Vial IVP SCH ×2 (11:28→21:40)
[2018-06-11] MEDS: guaiFENesin 100 mg/5 ml Syrup UD PO PRN (11:28)
--- NOTE | 2018-06-11 12:45 | CP.PCM.PN ---
Subjective - Date & Time of Evaluation Date of Evaluation: 06/11/18 Time of Evaluation: 09:45 - Subjective Subjective: clinically same Objective - Vital Signs/Intake and Output Vital Signs (last 24 hours): Temp Pulse Resp BP Pulse Ox 97.9 F 58 L 20 148/84 98 06/10/18 23:56 06/10/18 23:56 06/10/18 23:56 06/10/18 23:56 06/10/18 23:56 - Medications Medications: Current Medications Enoxaparin Sodium (Lovenox) 40 mg SC DAILY [facility] Last Admin: 06/11/18 11:28 Dose: 40 mg Escitalopram Oxalate (Lexapro) 10 mg PO DAILY [facility] Last Admin: 06/11/18 11:28 Dose: 10 mg Fluticasone/Vilanterol (Breo Ellipta 100-25 Mcg Inh) 1 puff INH RQ24 [facility] Gabapentin (Neurontin) 300 mg PO BID [facility] Last Admin: 06/11/18 11:28 Dose: 300 mg Guaifenesin (Robitussin) 100 mg PO Q4H PRN PRN Reason: Cough Last Admin: 06/11/18 11:28 Dose: 100 mg Hydroxyzine HCl (Atarax) 25 mg PO BID PRN PRN Reason: Anxiety Last Admin: 06/10/18 18:00 Dose: 25 mg Azithromycin 250 mg/ Sodium (Chloride) 250 mls @ 166.667 mls/hr IVPB Q24H [facility]; Protocol Last Admin: 06/10/18 18:00 Dose: 166.667 mls/hr Methadone HCl (Methadone) 20 mg PO DAILY [facility] Last Admin: 06/11/18 11:27 Dose: 20 mg Methadone HCl (Methadose) 40 mg PO DAILY [facility] Last Admin: 06/11/18 11:27 Dose: 40 mg Methylprednisolone (Solu-Medrol) 40 mg IVP Q12 [facility] Last Admin: 06/11/18 11:28 Dose: 40 mg Montelukast Sodium (Singulair) 10 mg PO HS [facility] Last Admin: 06/10/18 22:37 Dose: 10 mg Quetiapine Fumarate (Seroquel) 25 mg PO TID [facility] Last Admin: 06/11/18 11:28 Dose: 25 mg Trazodone HCl (Desyrel) 100 mg PO HS [facility] Last Admin: 06/10/18 22:37 Dose: 100 mg - Labs Labs: 06/06/18 06:48 06/06/18 06:48 - Constitutional Appears: Non-toxic, No Acute Distress - Head Exam Head Exam: ATRAUMATIC, NORMOCEPHALIC - Eye Exam Eye Exam: EOMI, Normal appearance - ENT Exam ENT Exam: Mucous Membranes Moist - Neck Exam Neck Exam: Normal Inspection. absent: Lymphadenopathy, Thyromegaly - Respiratory Exam Respiratory Exam: Decreased Breath Sounds - Cardiovascular Exam Cardiovascular Exam: +S1, +S2 - GI/Abdominal Exam GI & Abdominal Exam: Diminished Bowel Sounds - Rectal Exam Rectal Exam: Deferred Assessment and Plan - Assessment and Plan (Free Text) Plan: COPD exacerbation - Pulm consulted, Dr. Church. Help appreciated - NC prn to maintain O2>92% - Solumedrol 40 mg IVP Q8H - Montelukast 10mg PO HS - On Breo-Ellipta daily - Robitussin 100mg PO Q4 H PRN - Azithromycin 500mg IVPB q24h (started on 04/16) - Continue to monitor -PT evaluation: : desaturation to 83% at 3Liters when ambulation. At rest patient improves to 96%. : PT reccomends DELANEY. Pending approval. HTN - Normotensive - Will continue to monitor Anxiety - Continue to monitor- CBT and Supportive therapy * Atarax 25 mg PO BID PRN * Seroquel 25mg PO TID * Trazodone 100mg PO HS * Lexapro 10mg PO Daily * Gabapentin 300 mg PO BID * Psych supportive therapy * F/U Psych recs Heroin abuse - Psych consulted, Dr. Reyes * Methadone treatment per psych. * Patient has been on 60 mg Methadone for the past 3 months. Advise continued outpatient therapy. * Cessation counseling Prophylaxis - SCDs - Lovenox 40mg SC daily - PT eval/treat Dispo: Awaiting approval for DELANEYAldo
[2018-06-11] MEDS: Azithromycin 250 MG in Sodium Chloride 0.9% 250 ML IVPB SCH (18:00)
[2018-06-12] MEDS: Methadone 40 mg Tab PO SCH (10:51)
[2018-06-12] MEDS: MethylPREDNISolone 40 mg Vial IVP SCH ×2 (10:52→21:59)
[2018-06-12] MEDS: Enoxaparin 40 mg Syringe SC SCH (10:52)
[2018-06-12] MEDS: guaiFENesin 100 mg/5 ml Syrup UD PO PRN (10:52)
--- NOTE | 2018-06-12 16:06 | CP.PCM.PN ---
Subjective - Date & Time of Evaluation Date of Evaluation: 06/12/18 Time of Evaluation: 09:45 - Subjective Subjective: clinically same Objective - Vital Signs/Intake and Output Vital Signs (last 24 hours): Temp Pulse Resp BP Pulse Ox 98.0 F 90 20 104/71 99 06/12/18 08:10 06/12/18 10:51 06/12/18 08:10 06/12/18 10:51 06/12/18 12:27 - Medications Medications: Current Medications Enoxaparin Sodium (Lovenox) 40 mg SC DAILY [facility] Last Admin: 06/12/18 10:52 Dose: 40 mg Escitalopram Oxalate (Lexapro) 10 mg PO DAILY [facility] Last Admin: 06/12/18 10:52 Dose: 10 mg Fluticasone/Vilanterol (Breo Ellipta 100-25 Mcg Inh) 1 puff INH RQ24 [facility] Gabapentin (Neurontin) 300 mg PO BID [facility] Last Admin: 06/12/18 10:52 Dose: 300 mg Guaifenesin (Robitussin) 100 mg PO Q4H PRN PRN Reason: Cough Last Admin: 06/12/18 10:52 Dose: 100 mg Hydroxyzine HCl (Atarax) 25 mg PO BID PRN PRN Reason: Anxiety Last Admin: 06/10/18 18:00 Dose: 25 mg Azithromycin 250 mg/ Sodium (Chloride) 250 mls @ 166.667 mls/hr IVPB Q24H [facility]; Protocol Last Admin: 06/11/18 18:00 Dose: 166.667 mls/hr Methadone HCl (Methadone) 20 mg PO DAILY [facility] Last Admin: 06/12/18 10:51 Dose: 20 mg Methadone HCl (Methadose) 40 mg PO DAILY [facility] Last Admin: 06/12/18 10:51 Dose: 40 mg Methylprednisolone (Solu-Medrol) 40 mg IVP Q12 [facility] Last Admin: 06/12/18 10:52 Dose: 40 mg Montelukast Sodium (Singulair) 10 mg PO HS [facility] Last Admin: 06/11/18 21:39 Dose: 10 mg Quetiapine Fumarate (Seroquel) 25 mg PO TID [facility] Last Admin: 06/12/18 13:29 Dose: 25 mg Trazodone HCl (Desyrel) 100 mg PO HS [facility] Last Admin: 06/11/18 21:39 Dose: 100 mg - Labs Labs: 06/06/18 06:48 06/06/18 06:48 - Constitutional Appears: Non-toxic, No Acute Distress - Head Exam Head Exam: ATRAUMATIC, NORMOCEPHALIC - Eye Exam Eye Exam: EOMI, Normal appearance - ENT Exam ENT Exam: Mucous Membranes Moist - Neck Exam Neck Exam: Normal Inspection. absent: Lymphadenopathy, Thyromegaly - Respiratory Exam Respiratory Exam: Decreased Breath Sounds - Cardiovascular Exam Cardiovascular Exam: +S1, +S2 - GI/Abdominal Exam GI & Abdominal Exam: Diminished Bowel Sounds - Rectal Exam Rectal Exam: Deferred Assessment and Plan - Assessment and Plan (Free Text) Plan: COPD exacerbation - Pulm consulted, Dr. Church. Help appreciated - NC prn to maintain O2>92% - Solumedrol 40 mg IVP Q8H - Montelukast 10mg PO HS - On Breo-Ellipta daily - Robitussin 100mg PO Q4 H PRN - Azithromycin 500mg IVPB q24h (started on 04/16) - Continue to monitor -PT evaluation: : desaturation to 83% at 3Liters when ambulation. At rest patient improves to 96%. : PT reccomends DELANEY. Pending approval. HTN - Normotensive - Will continue to monitor Anxiety - Continue to monitor- CBT and Supportive therapy * Atarax 25 mg PO BID PRN * Seroquel 25mg PO TID * Trazodone 100mg PO HS * Lexapro 10mg PO Daily * Gabapentin 300 mg PO BID * Psych supportive therapy * F/U Psych recs Heroin abuse - Psych consulted, Dr. Reyes * Methadone treatment per psych. * Patient has been on 60 mg Methadone for the past 3 months. Advise continued outpatient therapy. * Cessation counseling Prophylaxis - SCDs - Lovenox 40mg SC daily - PT eval/treat Dispo: Discahrge to [facility] tomorrow.
[2018-06-12] MEDS: Azithromycin 250 MG in Sodium Chloride 0.9% 250 ML IVPB SCH (18:18)
--- NOTE | 2018-06-13 08:43 | CP.PCM.PN ---
Subjective - Date & Time of Evaluation Date of Evaluation: 06/13/18 Time of Evaluation: 08:43 - Subjective Subjective: PGY-[address] Nicki Rico's Service Patient seen and examined at bedside. Per nursing no acute events occurred overnight. Patient reports an improvement in breathing since being admitted to the hospital. Patient does repot a productive cough with yellow phlegm. Patient denies any chest pain, shortness of breath, fevers, chills, syncopal episodes, or any other complaints. Objective - Vital Signs/Intake and Output Vital Signs (last 24 hours): Temp Pulse Resp BP Pulse Ox 98.1 F 73 20 147/84 98 06/13/18 00:00 06/13/18 00:00 06/13/18 00:00 06/13/18 00:00 06/13/18 00:00 - Medications Medications: Current Medications Enoxaparin Sodium (Lovenox) 40 mg SC DAILY [facility] Last Admin: 06/12/18 10:52 Dose: 40 mg Escitalopram Oxalate (Lexapro) 10 mg PO DAILY [facility] Last Admin: 06/12/18 10:52 Dose: 10 mg Fluticasone/Vilanterol (Breo Ellipta 100-25 Mcg Inh) 1 puff INH RQ24 [facility] Gabapentin (Neurontin) 300 mg PO BID [facility] Last Admin: 06/12/18 18:18 Dose: 300 mg Guaifenesin (Robitussin) 100 mg PO Q4H PRN PRN Reason: Cough Last Admin: 06/12/18 10:52 Dose: 100 mg Hydroxyzine HCl (Atarax) 25 mg PO BID PRN PRN Reason: Anxiety Last Admin: 06/10/18 18:00 Dose: 25 mg Azithromycin 250 mg/ Sodium (Chloride) 250 mls @ 166.667 mls/hr IVPB Q24H [facility]; Protocol Last Admin: 06/12/18 18:18 Dose: 166.667 mls/hr Methadone HCl (Methadone) 20 mg PO DAILY [facility] Last Admin: 06/12/18 10:51 Dose: 20 mg Methadone HCl (Methadose) 40 mg PO DAILY [facility] Last Admin: 06/12/18 10:51 Dose: 40 mg Methylprednisolone (Solu-Medrol) 40 mg IVP Q12 [facility] Last Admin: 06/12/18 21:59 Dose: 40 mg Montelukast Sodium (Singulair) 10 mg PO [facility] Last Admin: 06/12/18 22:00 Dose: 10 mg Quetiapine Fumarate (Seroquel) 25 mg PO TID [facility] Last Admin: 06/12/18 18:18 Dose: 25 mg Trazodone HCl (Desyrel) 100 mg PO [facility] Last Admin: 06/12/18 22:00 Dose: 100 mg - Labs Labs: 06/06/18 06:48 06/06/18 06:48 - Head Exam Head Exam: ATRAUMATIC, NORMAL INSPECTION - Eye Exam Eye Exam: EOMI, Normal appearance, PERRL Pupil Exam: NORMAL ACCOMODATION - ENT Exam ENT Exam: Mucous Membranes Moist, Normal Oropharynx - Respiratory Exam Respiratory Exam: Clear to Ausculation Bilateral, NORMAL BREATHING PATTERN. absent: Prolonged Expiratory Phase, Respiratory Distress - Cardiovascular Exam Cardiovascular Exam: REGULAR RHYTHM, +S1, +S2 - GI/Abdominal Exam GI & Abdominal Exam: Soft, Normal Bowel Sounds. absent: Hyperactive Bowel Sounds - Extremities Exam Extremities Exam: Full ROM. absent: Pedal Edema - Back Exam Back Exam: NORMAL INSPECTION. absent: CVA tenderness (R), paraspinal tenderness - Neurological Exam Neurological Exam: Alert, Awake, CN II-XII Intact, Oriented x3 - Psychiatric Exam Psychiatric exam: Normal Affect, Normal Mood - Skin Skin Exam: Dry, Intact Assessment and Plan - Assessment and Plan (Free Text) Plan: COPD exacerbation - Pulm consulted, Dr. Church. Help appreciated - NC prn to maintain O2>92% - Solumedrol 40 mg IVP Q8H - Montelukast 10mg PO HS - On Breo-Ellipta daily - Robitussin 100mg PO Q4 H PRN - Azithromycin 500mg IVPB q24h (started on 04/16) - Continue to monitor -PT evaluation: : desaturation to 83% at 3Liters when ambulation. At rest patient improves to 96%. : PT reccomends DELANEY. Pending approval. HTN - Normotensive - Will continue to monitor Anxiety - Continue to monitor- CBT and Supportive therapy * Atarax 25 mg PO BID PRN * Seroquel 25mg PO TID * Trazodone 100mg PO HS * Lexapro 10mg PO Daily * Gabapentin 300 mg PO BID * Psych supportive therapy * F/U Psych recs Heroin abuse - Psych consulted, Dr. Reyes * Methadone treatment per psych. * Patient has been on 60 mg Methadone for the past 3 months. Advise continued outpatient therapy. * Cessation counseling Prophylaxis - SCDs - Lovenox 40mg SC daily - PT eval/treat Dispo: Pt discharged to [facility] [place]. Will discuss case with Attending Dr. Nicki Rico. All management per Dr. Nicki Rico.
[2018-06-13 09:03] VITALS: BP 105/71; PULSE 55; TEMP 98.5; O2SAT 97
[2018-06-13] MEDS: Enoxaparin 40 mg Syringe SC SCH (09:44)
[2018-06-13] MEDS: MethylPREDNISolone 40 mg Vial IVP SCH (09:44)
[2018-06-13] MEDS: Methadone 40 mg Tab PO SCH (09:45)
--- NOTE | 2018-06-13 12:25 | CP.PCM.PN ---
Subjective - Date & Time of Evaluation Date of Evaluation: 06/13/18 Time of Evaluation: 12:24 - Subjective Subjective: PATIENT SEEN AND EXAMINED AT THE BEDSIDE Objective - Vital Signs/Intake and Output Vital Signs (last 24 hours): Temp Pulse Resp BP Pulse Ox 98.5 F 55 L 20 105/71 97 06/13/18 08:00 06/13/18 08:00 06/13/18 08:00 06/13/18 08:00 06/13/18 08:00 - Medications Medications: Current Medications Enoxaparin Sodium (Lovenox) 40 mg SC DAILY [facility] Last Admin: 06/13/18 09:44 Dose: 40 mg Escitalopram Oxalate (Lexapro) 10 mg PO DAILY [facility] Last Admin: 06/13/18 09:45 Dose: 10 mg Fluticasone/Vilanterol (Breo Ellipta 100-25 Mcg Inh) 1 puff INH RQ24 [facility] Gabapentin (Neurontin) 300 mg PO BID [facility] Last Admin: 06/13/18 09:44 Dose: 300 mg Guaifenesin (Robitussin) 100 mg PO Q4H PRN PRN Reason: Cough Last Admin: 06/12/18 10:52 Dose: 100 mg Hydroxyzine HCl (Atarax) 25 mg PO BID PRN PRN Reason: Anxiety Last Admin: 06/10/18 18:00 Dose: 25 mg Azithromycin 250 mg/ Sodium (Chloride) 250 mls @ 166.667 mls/hr IVPB Q24H [facility]; Protocol Last Admin: 06/12/18 18:18 Dose: 166.667 mls/hr Methadone HCl (Methadone) 20 mg PO DAILY [facility] Last Admin: 06/13/18 09:44 Dose: 20 mg Methadone HCl (Methadose) 40 mg PO DAILY [facility] Last Admin: 06/13/18 09:45 Dose: 40 mg Methylprednisolone (Solu-Medrol) 40 mg IVP Q12 [facility] Last Admin: 06/13/18 09:44 Dose: 40 mg Montelukast Sodium (Singulair) 10 mg PO HS [facility] Last Admin: 06/12/18 22:00 Dose: 10 mg Quetiapine Fumarate (Seroquel) 25 mg PO TID [facility] Last Admin: 06/13/18 09:45 Dose: 25 mg Trazodone HCl (Desyrel) 100 mg PO HS [facility] Last Admin: 06/12/18 22:00 Dose: 100 mg - Labs Labs: 06/06/18 06:48 06/06/18 06:48 Assessment and Plan - Assessment and Plan (Free Text) Assessment: PL[facility] THE SERVICE DR Kavya HARRINGTON AT [facility] ---CALL FOR ADMITTING CONTINUE HOME MEDICATION NEW PRESCRIPTION ZPACK AND MEDROL PACK ACTIVITY TOLERATED AND FACILITY PROTOCOL CALL DR Kavya HARRINGTON FOR FURTHER ORDER
== END 2018-06-13 15:00 | DRG 88 ==
LOC: C.ER 10:12 → C.9E 10:59 → C.5S 16:36 → OBSVTOIN 06-02 16:53
PROVIDERS: ADMIT Internal Medicine Nephrology; ATTEND Internal Medicine Nephrology
DX: J44.1 Chronic obstructive pulmonary disease with (acute) exacerbation (principal); F33.2 Major depressive disorder, recurrent severe without psychotic features; F11.20 Opioid dependence, uncomplicated; Z99.81 Dependence on supplemental oxygen; F17.200 Nicotine dependence, unspecified, uncomplicated; I10 Essential (primary) hypertension; F41.0 Panic disorder [episodic paroxysmal anxiety]; E11.9 Type 2 diabetes mellitus without complications; H54.40 Blindness, one eye, unspecified eye; Z90.01 Acquired absence of eye

== ENCOUNTER 2018-09-07 10:04 | Inpatient (IN) | payer OTHER ==
[2018-09-07 10:04] VITALS: BMI 21.7
--- NOTE | 2018-09-07 11:14 | C.PDOC ---
History Of Present Illness 57 y/o female, with history of COPD, comes in complaining of a productive cough with thick yellow phlegm, SOB, and nose bleed. Patient states she gets a nose bleed when she sneezes. Reports she had a fever 2 days ago that has been r esolved. Patient is on home O2 3L and takes treatments at home. Denies any other associated symptoms. PMHX OF ANXIETY, ASTHMA, BRONCHITIS, COPD ON OME O2 3L, DEPRESSION, DM, EMPHYSEMA AND HTN Time Seen by Provider: 09/07/18 11:06 Chief Complaint (Nursing): Cough, Cold, Congestion History Per: Patient History/Exam Limitations: no limitations Onset/Duration Of Symptoms: Days Current Symptoms Are (Timing): Still Present Past Medical History Reviewed: Historical Data, Nursing Documentation, Vital Signs Vital Signs: Last Vital Signs Temp 98.2 F 09/07/18 10:25 Pulse 70 09/07/18 10:25 Resp 18 09/07/18 10:25 BP 132/83 09/07/18 10:25 Pulse Ox 93 L 09/07/18 10:25 - Medical History PMH: Anemia, Anxiety, Asthma, Bronchitis, Cardia Arrhythmia, COPD, Depression, Diabetes, Emphysema, HTN Denies: Chronic Kidney Disease, Seizures, Sexually Transmitted Disease, Sleep Apnea Surgical History: Back Surgery Denies: Coronary Stent, Pacemaker - [facility] Procedures APPLICATION OF SPLINT (12/18/03) ASSISTANCE WITH RESPIRATORY VENTILATION, 24-96 HRS, CPAP (02/01/17) ASSISTANCE WITH RESPIRATORY VENTILATION, <24 HRS, CPAP (02/27/18) ASSISTANCE WITH RESPIRATORY VENTILATION, >96 HRS, CPAP (01/23/17) DETOXIFICATION SERVICES FOR SUBSTANCE ABUSE TREATMENT (10/31/17) INDIV PSYCHOTHERAPY FOR SUBSTANCE ABUSE TREATMENT, SUPPORT (10/31/17) INDIV PSYCHOTHERAPY FOR SUBSTANCE ABUSE, PSYCHOEDUCATION (10/31/17) INDIVIDUAL PSYCHOTHERAPY, SUPPORTIVE (04/29/17) INJECT/INFUSE NEC (03/17/05) INSERTION OF ENDOTRACHEAL AIRWAY INTO TRACHEA, VIA OPENING (02/01/17) INSERTION OF INFUSION DEV INTO SUP VENA CAVA, PERC APPROACH (02/01/17) INTRODUCE OF OTH THERAP SUBST INTO RESP TRACT, VIA OPENING (01/23/17) INTRODUCE OF OXAZOLIDINONES INTO PERIPH VEIN, PERC APPROACH (02/01/17) MAGNETIC RESONANCE IMAGING OF SPINAL CANAL (11/20/98) RESPIRATORY VENTILATION, LESS THAN 24 CONSECUTIVE HOURS (02/01/17) TETANUS TOXOID ADMINIST (04/24/05) ULTRASONOGRAPHY OF LEFT UPPER EXTREMITY VEINS, GUIDANCE (02/01/17) Family History: States: No Known Family Hx - Social History Hx Alcohol Use: No Hx Substance Use: Yes (IVDA +HEROIN. ) - Immunization History Hx Tetanus Toxoid Vaccination: No Hx Influenza Vaccination: No Hx Pneumococcal Vaccination: Yes Review Of Systems Except As Marked, All Systems Reviewed And Found Negative. Constitutional: Negative for: Chills ENT: Positive for: Other (nose bleed) Cardiovascular: Negative for: Chest Pain Respiratory: Positive for: Cough (productive, with thick yellow phlegm), Shortness of Breath Gastrointestinal: Negative for: Vomiting, Abdominal Pain Skin: Negative for: Rash Physical Exam - Physical Exam Appears: Non-toxic, No Acute Distress Skin: Warm, Dry Head: Atraumatic, Normacephalic Eye(s): bilateral: Normal Inspection Oral Mucosa: Moist Neck: Supple Cardiovascular: Rhythm Regular, No Murmur Respiratory: Decreased Breath Sounds, Wheezing (expiratory wheezing), Other (tachypnea; retractions) Gastrointestinal/Abdominal: Soft, No Tenderness Extremity: Bilateral: Atraumatic, Normal Color And Temperature, Normal ROM Neurological/Psych: Oriented x3, Normal Speech (speaking full sentences) ED Course And Treatment - Laboratory Results Result Diagrams: 09/07/18 12:20 ECG: Interpreted By Me, Viewed By Nm ECG Rhythm: Sinus Rhythm (with PAC) Interpretation Of ECG: Prolonged QTc interval. Rate From EC O2 Sat by Pulse Oximetry: 93 (RA) Pulse Ox Interpretation: Abnormal - Radiology CXR: Interpreted by Me CXR Interpretation: Yes: No Acute Disease - Other Rad CXR X-Ray: Read By Radiologist Interpretation: FINDINGS: LUNGS: Hyperinflation may be seen in the setting of COPD. Increased lucencies especially within the bilateral upper lung jose compatible with underlying emphysema. No focal consolidation. Please note that chest x-ray has limited sensitivity for the detection of pulmonary masses. PLEURA: No significant pleural effusion identified. No definite pneumothorax . CARDIOVASCULAR: Heart size appears within normal limits. Atherosclerotic calcifications present. OSSEOUS STRUCTURES: Degenerative changes. VISUALIZED UPPER ABDOMEN: Unremarkable. OTHER FINDINGS: None. IMPRESSION: Emphysema/COPD. Progress Note: EKG, chest XR, and labs ordered. Duodnnie, avelox IV, and solumedrol IV administered. Progress - Re-Evaluation Re-evaluation Note: 09/07/18 11:43 D/W DR ESTRADA C/F PMD WILL ADMIT - Data Reviewed Data Reviewed: Lab, Diagnostic imaging, EKG, Old records Disposition Counseled Patient/Family Regarding: Studies Performed, Diagnosis - Disposition Disposition: HOSPITALIZED Disposition Time: 11:43 Condition: STABLE - POA Present On Arrival: None - Clinical Impression Clinical Impression: COPD exacerbation, Pneumonia - Scribe Statement The provider has reviewed the documentation as recorded by the Kareen Vo Provider Attestation: All medical record entries made by the Kareen were at my direction and personally dictated by me. I have reviewed the chart and agree that the record accurately reflects my personal performance of the history, physical exam, medical decision making, and the department course for this patient. I have also personally directed, reviewed, and agree with the discharge instructions and disposition.
[2018-09-07] MEDS ORDERED: MethylPREDNISolone 40 mg Vial IVP STA (11:15)
[2018-09-07] MEDS: Albuterol-Ipratrop 3 mg / 0.5 (3 ml) UD IH SCH ×3 (11:15→11:45)
[2018-09-07] MEDS ORDERED: Moxifloxacin IV 400mg/250ml NS 400 MG/250 ML BAG IV ONE (11:15)
--- NOTE | 2018-09-07 11:43 | RAD ---
HISTORY: Pneumonia COMPARISON: Chest x-ray performed 05/31/18 TECHNIQUE: Chest PA and lateral FINDINGS: LUNGS: Hyperinflation may be seen in the setting of COPD. Increased lucencies especially within the bilateral upper lung jose compatible with underlying emphysema. No focal consolidation. Please note that chest x-ray has limited sensitivity for the detection of pulmonary masses. PLEURA: No significant pleural effusion identified. No definite pneumothorax . CARDIOVASCULAR: Heart size appears within normal limits. Atherosclerotic calcifications present. OSSEOUS STRUCTURES: Degenerative changes. VISUALIZED UPPER ABDOMEN: Unremarkable. OTHER FINDINGS: None. IMPRESSION: Emphysema/COPD.
[2018-09-07 12:29] LABS: BASO # 0.1 K/uL (0.0-0.2); BASO % 1.5 % (0.0-2.0); EOS # 0.1 K/uL (0.0-0.7); EOS % 0.7 % (0.0-4.0); LYMPH # 2.7 K/uL (1.0-4.3); LYMPH % 36.3 % (20.0-40.0); MEAN CELL VOLUME 95.5 fL (81.0-99.0); MEAN CORPUSCULAR HEMOGLOBIN 31.9 pg (27.0-31.0); MEAN CORPUSCULAR HGB CONC 33.4 g/dL (33.0-37.0); MONO # 0.6 K/uL (0.0-0.8); MONO % 8.4 % (0.0-10.0); NEUT % 53.1 % (50.0-75.0); RBC 4.62 Mil/uL (3.80-5.20); RED CELL DISTRIBUTION WIDTH 14.2 % (11.5-14.5); WHITE BLOOD COUNT 7.5 K/uL (4.8-10.8)
[2018-09-07 12:31] LABS: HEMOGLOBIN 14.7 g/dL (11.0-16.0)
[2018-09-07] MEDS ORDERED: Moxifloxacin IV 400mg/250ml NS 400 MG/250 ML BAG IVPB ONE (12:52)
[2018-09-07] MEDS ORDERED: MethylPREDNISolone 40 mg Vial ONE (12:52)
[2018-09-07] MEDS ORDERED: Albuterol-Ipratrop 3 mg / 0.5 (3 ml) UD ONE (12:52)
[2018-09-07 13:23] LABS: ALB/GLOB RATIO 1.2 (1.0-2.1); ALBUMIN 3.7 g/dL (3.5-5.0); ALT/SGPT 56 U/L (9-52); AST/SGOT 65 U/L (14-36); BLOOD UREA NITROGEN 13 mg/dL (7-17); CALCIUM 8.4 mg/dl (8.6-10.4); GFR NON-AFRICAN AMERICAN > 60
--- NOTE | 2018-09-07 14:01 | CP.PCM.HP ---
History of Present Illness - History of Present Illness History of Present Illness: 57 y/o female, with history of COPD, comes in complaining of a productive cough with thick yellow phlegm, SOB, and nose bleed. Patient states she gets a nose bleed when she sneezes. Reports she had a fever 2 days ago that has been reso lved. Patient is on home O2 3L and takes treatments at home. Denies any other associated symptoms. Present on Admission - Present on Admission Any Indicators Present on Admission: No Review of Systems - Review of Systems All systems: reviewed and no additional remarkable complaints except (As mentioned in HPI) Past Patient History - Infectious Disease Hx of Infectious Diseases: None - Tetanus Immunizations Tetanus Immunization: Unknown - Past Medical History & Family History Past Medical History?: Yes - Past Social History Smoking Status: Former Smoker - CARDIAC Hx Cardia Arrhythmia: Yes Hx Hypertension: Yes Hx Pacemaker: No - PULMONARY Hx Asthma: Yes Hx Bronchitis: Yes Hx Chronic Obstructive Pulmonary Disease (COPD): Yes Hx Emphysema: Yes Hx Sleep Apnea: No - NEUROLOGICAL Hx Seizures: No - HEENT Hx HEENT Problems: 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 ) - SURGICAL HISTORY Hx Coronary Stent: No - ANESTHESIA Hx Anesthesia: Yes Hx Anesthesia Reactions: No Hx Malignant Hyperthermia: No Meds Allergies/Adverse Reactions: Allergies Allergy/AdvReac Type Severity Reaction Status Date / Time Penicillins Allergy ANAPHYLAXIS Verified 05/31/18 10:28 Physical Exam - Head Exam Head Exam: NORMAL INSPECTION - Eye Exam Eye Exam: Normal appearance - ENT Exam ENT Exam: Mucous Membranes Moist - Respiratory Exam Respiratory Exam: Decreased Breath Sounds, Wheezes - Cardiovascular Exam Cardiovascular Exam: REGULAR RHYTHM, +S1, +S2 - GI/Abdominal Exam GI & Abdominal Exam: Normal Bowel Sounds, Soft - Extremities Exam Extremities exam: Positive for: normal inspection Results - Vital Signs Recent Vital Signs: Last Vital Signs Temp 98.2 F 09/07/18 10:25 Pulse 70 09/07/18 10:25 Resp 18 09/07/18 10:25 BP 132/83 09/07/18 10:25 Pulse Ox 93 L 09/07/18 12:55 - Labs Result Diagrams: 09/07/18 12:20 09/07/18 12:20 Labs: Laboratory Results - last 24 hr 09/07/18 09/07/18 09/07/18 12:20 12:20 12:33 WBC 7.5 RBC 4.62 Hgb 14.7 D Hct 44.1 MCV 95.5 MCH 31.9 H MCHC 33.4 RDW 14.2 Plt Count 166 MPV 8.0 Neut % (Auto) 53.1 Lymph % (Auto) 36.3 Chambers % (Auto) 8.4 Eos % (Auto) 0.7 Baso % (Auto) 1.5 Neut # (Auto) 4.0 Lymph # (Auto) 2.7 Chambers # (Auto) 0.6 Eos # (Auto) 0.1 Baso # (Auto) 0.1 Sodium 141 Potassium 3.6 Chloride 96 L Carbon Dioxide 39 H Anion Gap 10 BUN 13 Creatinine 0.6 L Est GFR ( Amer) > 60 Est GFR (Non-Af Amer) > 60 Random Glucose 125 H Calcium 8.4 L Total Bilirubin 0.5 AST 65 H D ALT 56 H Alkaline Phosphatase 55 Total Protein 6.9 Albumin 3.7 Globulin 3.2 Albumin/Globulin Ratio 1.2 Influenza Typ A,B (EIA) Negative for flu a/b Assessment & Plan (1) COPD exacerbation Status: Acute (2) Acute bronchitis Status: Acute (3) Diabetes Status: Acute (4) Dyspnea Status: Acute (5) Methadone dependence Status: Acute - Assessment and Plan (Free Text) Plan: Moxifloxacin IV Solu-Medrol Brio Ellipta 200/25 mcg 1 puff daily Bronchodilators Oxygen supplementation Incentive spirometry Gabapentin Montelukast 10 mg nightly Zolpidem/trazodone DVT/GI peripheral
[2018-09-07] MEDS: guaiFENesin 100 mg/5 ml Syrup UD PO SCH ×3 (15:22→21:15)
[2018-09-07] MEDS ORDERED: guaiFENesin 100 mg/5 ml Syrup UD ONE (15:26)
[2018-09-07] MEDS: MethylPREDNISolone 40 mg Vial IVP SCH (21:15)
[2018-09-07] MEDS ORDERED: Home Med 1 UNIT (Melatonin [Melatonin] 5 MG) PO SCH (22:00)
[2018-09-07] MEDS ORDERED: Methadone 40 mg Tab PO SCH (22:00)
[2018-09-08] MEDS: guaiFENesin 100 mg/5 ml Syrup UD PO SCH ×6 (02:17→21:32)
[2018-09-08] MEDS: MethylPREDNISolone 40 mg Vial IVP SCH ×3 (05:36→21:32)
[2018-09-08] MEDS: Enoxaparin 40 mg Syringe SC SCH (09:50)
[2018-09-08] MEDS: Methadone 40 mg Tab PO SCH (09:50)
[2018-09-08] MEDS: Moxifloxacin IV 400mg/250ml NS 400 MG/250 ML BAG IVPB SCH (13:17)
[2018-09-08] MEDS: Fluticasone-Vilanterol 200/25mcg Diskus INH SCH (13:30)
[2018-09-08] MEDS: Albuterol-Ipratrop 3 mg / 0.5 (3 ml) UD IH PRN (13:30)
--- NOTE | 2018-09-08 13:42 | CP.PCM.PN ---
Subjective - Date & Time of Evaluation Date of Evaluation: 09/08/18 Time of Evaluation: 13:42 Objective - Vital Signs/Intake and Output Vital Signs (last 24 hours): Temp Pulse Resp BP Pulse Ox 98 F 63 20 125/73 97 09/08/18 08:15 09/08/18 08:15 09/08/18 08:15 09/08/18 08:15 09/08/18 08:15 - Medications Medications: Current Medications Albuterol/Ipratropium (Duoneb 3 Mg/0.5 Mg (3 Ml) Ud) 3 ml IH RTID PRN PRN Reason: Wheezing Last Admin: 09/08/18 13:30 Dose: 3 ml Artificial Tears (Artificial Tears) 0 ml OD Q8H PRN PRN Reason: Dry eyes Docusate Sodium (Colace) 200 mg PO HS [facility] Enoxaparin Sodium (Lovenox) 40 mg SC DAILY [facility] Last Admin: 09/08/18 09:50 Dose: 40 mg Escitalopram Oxalate (Lexapro) 10 mg PO DAILY [facility] Last Admin: 09/08/18 09:49 Dose: 10 mg Fluticasone/Vilanterol (Breo Ellipta 200-25 Mcg Inh) 1 puff INH RQ24 [facility] Last Admin: 09/08/18 13:30 Dose: Not Given Gabapentin (Neurontin) 300 mg PO BID [facility] Last Admin: 09/08/18 09:49 Dose: 300 mg Guaifenesin (Robitussin) 100 mg PO Q4H [facility] Last Admin: 09/08/18 13:16 Dose: 100 mg Home Med (Melatonin [Melatonin]) 5 mg PO HS [facility] Hydroxyzine HCl (Atarax) 25 mg PO BID PRN PRN Reason: Anxiety Moxifloxacin HCl (Avelox Iv 400mg/250ml Ns) 400 mg in 250 mls @ 167 mls/hr IVPB Q24H [facility]; Protocol Last Admin: 09/08/18 13:17 Dose: 167 mls/hr Methadone HCl (Methadone) 20 mg PO DAILY [facility] Last Admin: 09/08/18 09:49 Dose: 20 mg Methadone HCl (Methadose) 40 mg PO DAILY [facility] Last Admin: 09/08/18 09:50 Dose: 40 mg Methylprednisolone (Solu-Medrol) 40 mg IVP Q8 [facility] Last Admin: 09/08/18 13:16 Dose: 40 mg Montelukast Sodium (Singulair) 10 mg PO [facility] Last Admin: 09/07/18 21:15 Dose: 10 mg Polyethylene Glycol (Miralax) 17 gm PO Q8H PRN PRN Reason: Constipation Trazodone HCl (Desyrel) 100 mg PO [facility] Last Admin: 09/07/18 21:15 Dose: 100 mg Zolpidem Tartrate (Ambien) 5 mg PO [facility] Last Admin: 09/07/18 21:15 Dose: 5 mg - Labs Labs: 09/07/18 12:20 09/07/18 12:20 Assessment and Plan (1) COPD exacerbation Status: Acute (2) Acute bronchitis Status: Acute (3) Diabetes Status: Acute (4) Dyspnea Status: Acute (5) Methadone dependence Status: Acute
[2018-09-08] MEDS: Aritificial Tears (15ml) OD PRN (14:18)
[2018-09-09] MEDS: guaiFENesin 100 mg/5 ml Syrup UD PO SCH ×6 (02:20→21:45)
[2018-09-09] MEDS: MethylPREDNISolone 40 mg Vial IVP SCH ×3 (06:32→21:45)
[2018-09-09] MEDS: Methadone 40 mg Tab PO SCH (10:22)
[2018-09-09] MEDS: POLYETHYLENE GLYCOL 3350 17 GM/Dose PACKET PO PRN (10:24)
[2018-09-09] MEDS: Enoxaparin 40 mg Syringe SC SCH (10:24)
[2018-09-09] MEDS: Moxifloxacin IV 400mg/250ml NS 400 MG/250 ML BAG IVPB SCH (14:35)
[2018-09-09] MEDS ORDERED: MethylPREDNISolone 40 mg Vial IVP SCH (17:30)
--- NOTE | 2018-09-09 18:19 | CP.PCM.PN ---
Subjective - Date & Time of Evaluation Date of Evaluation: 09/09/18 Time of Evaluation: 18:18 Objective - Vital Signs/Intake and Output Vital Signs (last 24 hours): Temp Pulse Resp BP Pulse Ox 98.7 F 63 20 116/69 96 09/09/18 16:23 09/09/18 16:23 09/09/18 16:23 09/09/18 16:23 09/09/18 16:23 - Medications Medications: Current Medications Albuterol/Ipratropium (Duoneb 3 Mg/0.5 Mg (3 Ml) Ud) 3 ml IH RTID PRN PRN Reason: Wheezing Last Admin: 09/08/18 13:30 Dose: 3 ml Artificial Tears (Artificial Tears) 0 ml OD Q8H PRN PRN Reason: Dry eyes Last Admin: 09/08/18 14:18 Dose: 1 drop Docusate Sodium (Colace) 200 mg PO HS [facility] Last Admin: 09/08/18 21:32 Dose: 200 mg Enoxaparin Sodium (Lovenox) 40 mg SC DAILY [facility] Last Admin: 09/09/18 10:24 Dose: 40 mg Escitalopram Oxalate (Lexapro) 10 mg PO DAILY [facility] Last Admin: 09/09/18 10:22 Dose: 10 mg Fluticasone/Vilanterol (Breo Ellipta 200-25 Mcg Inh) 1 puff INH RQ24 [facility] Last Admin: 09/08/18 13:30 Dose: Not Given Gabapentin (Neurontin) 300 mg PO BID [facility] Last Admin: 09/09/18 17:43 Dose: 300 mg Guaifenesin (Robitussin) 100 mg PO Q4H [facility] Last Admin: 09/09/18 17:43 Dose: 100 mg Hydroxyzine HCl (Atarax) 25 mg PO BID PRN PRN Reason: Anxiety Moxifloxacin HCl (Avelox Iv 400mg/250ml Ns) 400 mg in 250 mls @ 167 mls/hr IVPB Q24H [facility]; Protocol Last Admin: 09/09/18 14:35 Dose: 167 mls/hr Methadone HCl (Methadone) 20 mg PO DAILY [facility] Last Admin: 09/09/18 10:22 Dose: 20 mg Methadone HCl (Methadose) 40 mg PO DAILY [facility] Last Admin: 09/09/18 10:22 Dose: 40 mg Methylprednisolone (Solu-Medrol) 40 mg IVP Q12H [facility] Montelukast Sodium (Singulair) 10 mg PO HS [facility] Last Admin: 09/08/18 21:32 Dose: 10 mg Polyethylene Glycol (Miralax) 17 gm PO Q8H PRN PRN Reason: Constipation Last Admin: 09/09/18 10:24 Dose: 17 gm Trazodone HCl (Desyrel) 100 mg PO HS [facility] Last Admin: 09/08/18 21:32 Dose: 100 mg Zolpidem Tartrate (Ambien) 5 mg PO [facility] Last Admin: 09/08/18 21:32 Dose: 5 mg - Labs Labs: 09/07/18 12:20 09/07/18 12:20 Assessment and Plan (1) COPD exacerbation Status: Acute (2) Acute bronchitis Status: Acute (3) Diabetes Status: Acute (4) Dyspnea Status: Acute (5) Methadone dependence Status: Acute
[2018-09-10] MEDS: guaiFENesin 100 mg/5 ml Syrup UD PO SCH ×6 (02:16→22:16)
[2018-09-10] MEDS: Enoxaparin 40 mg Syringe SC SCH (09:34)
[2018-09-10] MEDS: Methadone 40 mg Tab PO SCH (09:34)
[2018-09-10] MEDS: MethylPREDNISolone 40 mg Vial IVP SCH ×2 (09:35→22:17)
[2018-09-10] MEDS: POLYETHYLENE GLYCOL 3350 17 GM/Dose PACKET PO PRN (09:36)
[2018-09-10] MEDS: Moxifloxacin IV 400mg/250ml NS 400 MG/250 ML BAG IVPB SCH (13:42)
[2018-09-10] MEDS: Albuterol-Ipratrop 3 mg / 0.5 (3 ml) UD IH PRN (13:49)
--- NOTE | 2018-09-10 16:43 | CP.PCM.PN ---
Subjective - Date & Time of Evaluation Date of Evaluation: 09/10/18 Time of Evaluation: 16:43 Objective - Vital Signs/Intake and Output Vital Signs (last 24 hours): Temp Pulse Resp BP Pulse Ox 97.8 F 66 20 107/68 96 09/10/18 16:14 09/10/18 16:14 09/10/18 16:14 09/10/18 16:14 09/10/18 16:14 Intake and Output: 09/10/18 09/10/18 06:59 18:59 Intake Total 400 Balance 400 - Medications Medications: Current Medications Albuterol/Ipratropium (Duoneb 3 Mg/0.5 Mg (3 Ml) Ud) 3 ml IH RTID PRN PRN Reason: Wheezing Last Admin: 09/10/18 13:49 Dose: 3 ml Artificial Tears (Artificial Tears) 0 ml OD Q8H PRN PRN Reason: Dry eyes Last Admin: 09/08/18 14:18 Dose: 1 drop Docusate Sodium (Colace) 200 mg PO HS [facility] Last Admin: 09/09/18 21:44 Dose: 200 mg Enoxaparin Sodium (Lovenox) 40 mg SC DAILY [facility] Last Admin: 09/10/18 09:34 Dose: 40 mg Escitalopram Oxalate (Lexapro) 10 mg PO DAILY [facility] Last Admin: 09/10/18 09:34 Dose: 10 mg Fluticasone/Vilanterol (Breo Ellipta 200-25 Mcg Inh) 1 puff INH RQ24 [facility] Last Admin: 09/08/18 13:30 Dose: Not Given Gabapentin (Neurontin) 300 mg PO BID [facility] Last Admin: 09/10/18 09:37 Dose: 300 mg Guaifenesin (Robitussin) 100 mg PO Q4H [facility] Last Admin: 09/10/18 13:42 Dose: 100 mg Hydroxyzine HCl (Atarax) 25 mg PO BID PRN PRN Reason: Anxiety Moxifloxacin HCl (Avelox Iv 400mg/250ml Ns) 400 mg in 250 mls @ 167 mls/hr IVPB Q24H [facility]; Protocol Last Admin: 09/10/18 13:42 Dose: 167 mls/hr Methadone HCl (Methadone) 20 mg PO DAILY [facility] Last Admin: 09/10/18 09:34 Dose: 20 mg Methadone HCl (Methadose) 40 mg PO DAILY [facility] Last Admin: 09/10/18 09:34 Dose: 40 mg Methylprednisolone (Solu-Medrol) 40 mg IVP Q12H [facility] Last Admin: 09/10/18 09:35 Dose: 40 mg Montelukast Sodium (Singulair) 10 mg PO [facility] Last Admin: 09/09/18 21:45 Dose: 10 mg Polyethylene Glycol (Miralax) 17 gm PO Q8H PRN PRN Reason: Constipation Last Admin: 09/10/18 09:36 Dose: 17 gm Trazodone HCl (Desyrel) 100 mg PO [facility] Last Admin: 09/09/18 21:44 Dose: 100 mg Zolpidem Tartrate (Ambien) 5 mg PO [facility] Last Admin: 09/09/18 21:44 Dose: 5 mg - Labs Labs: 09/07/18 12:20 09/07/18 12:20 Assessment and Plan (1) COPD exacerbation Status: Acute (2) Acute bronchitis Status: Acute (3) Diabetes Status: Acute (4) Dyspnea Status: Acute (5) Methadone dependence Status: Acute
[2018-09-10] MEDS: Aritificial Tears (15ml) OD PRN (17:58)
[2018-09-11] MEDS: guaiFENesin 100 mg/5 ml Syrup UD PO SCH ×7 (02:25→21:31)
[2018-09-11] MEDS: Albuterol-Ipratrop 3 mg / 0.5 (3 ml) UD IH PRN (04:44)
[2018-09-11] MEDS: Fluticasone-Vilanterol 200/25mcg Diskus INH SCH (08:40)
[2018-09-11] MEDS: Methadone 40 mg Tab PO SCH (09:44)
[2018-09-11] MEDS: MethylPREDNISolone 40 mg Vial IVP SCH ×2 (09:44→21:31)
[2018-09-11] MEDS: Enoxaparin 40 mg Syringe SC SCH (09:44)
[2018-09-11] MEDS: Moxifloxacin IV 400mg/250ml NS 400 MG/250 ML BAG IVPB SCH (13:34)
--- NOTE | 2018-09-11 15:45 | CP.PCM.PN ---
Subjective - Date & Time of Evaluation Date of Evaluation: 09/11/18 Time of Evaluation: 15:45 Objective - Vital Signs/Intake and Output Vital Signs (last 24 hours): Temp Pulse Resp BP Pulse Ox 97.8 F 55 L 18 143/81 98 09/11/18 08:00 09/11/18 08:00 09/11/18 08:00 09/11/18 08:00 09/11/18 08:00 Intake and Output: 09/11/18 09/11/18 06:59 18:59 Intake Total 720 950 Balance 720 950 - Medications Medications: Current Medications Albuterol/Ipratropium (Duoneb 3 Mg/0.5 Mg (3 Ml) Ud) 3 ml IH RTID PRN PRN Reason: Wheezing Last Admin: 09/11/18 04:44 Dose: 3 ml Artificial Tears (Artificial Tears) 0 ml OD Q8H PRN PRN Reason: Dry eyes Last Admin: 09/10/18 17:58 Dose: 2 drop Docusate Sodium (Colace) 200 mg PO HS [facility] Last Admin: 09/10/18 22:16 Dose: 200 mg Enoxaparin Sodium (Lovenox) 40 mg SC DAILY [facility] Last Admin: 09/11/18 09:44 Dose: 40 mg Escitalopram Oxalate (Lexapro) 10 mg PO DAILY [facility] Last Admin: 09/11/18 09:44 Dose: 10 mg Fluticasone/Vilanterol (Breo Ellipta 200-25 Mcg Inh) 1 puff INH RQ24 [facility] Last Admin: 09/11/18 08:40 Dose: Not Given Gabapentin (Neurontin) 300 mg PO BID [facility] Last Admin: 09/11/18 09:44 Dose: 300 mg Guaifenesin (Robitussin) 100 mg PO Q4H [facility] Last Admin: 09/11/18 13:34 Dose: 100 mg Hydroxyzine HCl (Atarax) 25 mg PO BID PRN PRN Reason: Anxiety Last Admin: 09/10/18 20:49 Dose: 25 mg Methadone HCl (Methadone) 20 mg PO DAILY [facility] Last Admin: 09/11/18 09:44 Dose: 20 mg Methadone HCl (Methadose) 40 mg PO DAILY [facility] Last Admin: 09/11/18 09:44 Dose: 40 mg Methylprednisolone (Solu-Medrol) 40 mg IVP Q12H [facility] Last Admin: 09/11/18 09:44 Dose: 40 mg Montelukast Sodium (Singulair) 10 mg PO [facility] Last Admin: 09/10/18 22:16 Dose: 10 mg Polyethylene Glycol (Miralax) 17 gm PO Q8H PRN PRN Reason: Constipation Last Admin: 09/10/18 09:36 Dose: 17 gm Trazodone HCl (Desyrel) 100 mg PO [facility] Last Admin: 09/10/18 22:16 Dose: 100 mg Zolpidem Tartrate (Ambien) 5 mg PO [facility] Last Admin: 09/10/18 22:17 Dose: 5 mg - Labs Labs: 09/07/18 12:20 09/07/18 12:20 Assessment and Plan (1) COPD exacerbation Status: Acute (2) Acute bronchitis Status: Acute (3) Diabetes Status: Acute (4) Dyspnea Status: Acute (5) Methadone dependence Status: Acute
[2018-09-12] MEDS: guaiFENesin 100 mg/5 ml Syrup UD PO SCH ×3 (01:34→13:30)
[2018-09-12] MEDS: Enoxaparin 40 mg Syringe SC SCH (09:34)
[2018-09-12] MEDS: Methadone 40 mg Tab PO SCH (09:34)
[2018-09-12] MEDS: MethylPREDNISolone 40 mg Vial IVP SCH (09:35)
[2018-09-12] MEDS: Fluticasone-Vilanterol 200/25mcg Diskus INH SCH (11:17)
--- NOTE | 2018-09-12 14:19 | CP.PCM.PN ---
Subjective - Date & Time of Evaluation Date of Evaluation: 09/12/18 Time of Evaluation: :19 - Subjective Subjective: PATIENT SEEN AND EXAMINED AT THE BEDSIDE Objective - Vital Signs/Intake and Output Vital Signs (last 24 hours): Temp Pulse Resp BP Pulse Ox 97.4 F L 64 20 128/74 97 09/12/18 08:00 09/12/18 08:00 09/12/18 08:00 09/12/18 08:00 09/12/18 08:00 - Medications Medications: Current Medications Albuterol/Ipratropium (Duoneb 3 Mg/0.5 Mg (3 Ml) Ud) 3 ml IH RTID PRN PRN Reason: Wheezing Last Admin: 09/11/18 04:44 Dose: 3 ml Artificial Tears (Artificial Tears) 0 ml OD Q8H PRN PRN Reason: Dry eyes Last Admin: 09/10/18 17:58 Dose: 2 drop Docusate Sodium (Colace) 200 mg PO HS [facility] Last Admin: 09/11/18 21:30 Dose: 200 mg Enoxaparin Sodium (Lovenox) 40 mg SC DAILY [facility] Last Admin: 09/12/18 09:34 Dose: 40 mg Escitalopram Oxalate (Lexapro) 10 mg PO DAILY [facility] Last Admin: 09/12/18 09:34 Dose: 10 mg Fluticasone/Vilanterol (Breo Ellipta 200-25 Mcg Inh) 1 puff INH RQ24 [facility] Last Admin: 09/12/18 11:17 Dose: Not Given Gabapentin (Neurontin) 300 mg PO BID [facility] Last Admin: 09/12/18 09:34 Dose: 300 mg Guaifenesin (Robitussin) 100 mg PO Q4H [facility] Last Admin: 09/12/18 13:30 Dose: 100 mg Hydroxyzine HCl (Atarax) 25 mg PO BID PRN PRN Reason: Anxiety Last Admin: 09/10/18 20:49 Dose: 25 mg Methadone HCl (Methadone) 20 mg PO DAILY [facility] Last Admin: 09/12/18 09:34 Dose: 20 mg Methadone HCl (Methadose) 40 mg PO DAILY [facility] Last Admin: 09/12/18 09:34 Dose: 40 mg Methylprednisolone (Solu-Medrol) 40 mg IVP DAILY [facility] Montelukast Sodium (Singulair) 10 mg PO HS [facility] Last Admin: 09/11/18 21:31 Dose: 10 mg Polyethylene Glycol (Miralax) 17 gm PO Q8H PRN PRN Reason: Constipation Last Admin: 09/10/18 09:36 Dose: 17 gm Trazodone HCl (Desyrel) 100 mg PO HS [facility] Last Admin: 09/11/18 21:30 Dose: 100 mg Zolpidem Tartrate (Ambien) 5 mg PO HS [facility] Last Admin: 09/11/18 21:30 Dose: 5 mg - Labs Labs: 09/07/18 12:20 09/07/18 12:20 Assessment and Plan - Assessment and Plan (Free Text) Assessment: FOLLOW UP WITH DR ESTRADA IN HIS OFFICE -----CALL FOR APPOINTMENT CONTINUE HOME MEDICATION NEW PRESCRIPTION GIVEN AVELOX 400 PO DAILY MEDROL DOSE PACK DIRECTED ACTIVITY TOLERATED AND HOME PHYSICAL THERAPY OUT PATIENT CALL DR ESTRADA OR GO TO THE EMERGENCY ROOM IF SYMPTOM RETURN OR WORSENING
[2018-09-12 16:38] VITALS: BP 110/70; PULSE 104; RESP 22; TEMP 97.9; O2SAT 95
--- NOTE | 2018-09-12 17:53 | CP.PCM.PN ---
Subjective - Date & Time of Evaluation Date of Evaluation: 09/12/18 Time of Evaluation: 17:53 Objective - Vital Signs/Intake and Output Vital Signs (last 24 hours): Temp Pulse Resp BP Pulse Ox 97.9 F 104 H 22 110/70 95 09/12/18 16:00 09/12/18 16:00 09/12/18 16:00 09/12/18 16:00 09/12/18 16:00 Intake and Output: 09/12/18 09/12/18 06:59 18:59 Intake Total 620 Balance 620 - Medications Medications: Current Medications Albuterol/Ipratropium (Duoneb 3 Mg/0.5 Mg (3 Ml) Ud) 3 ml IH RTID PRN PRN Reason: Wheezing Last Admin: 09/11/18 04:44 Dose: 3 ml Artificial Tears (Artificial Tears) 0 ml OD Q8H PRN PRN Reason: Dry eyes Last Admin: 09/10/18 17:58 Dose: 2 drop Docusate Sodium (Colace) 200 mg PO HS [facility] Last Admin: 09/11/18 21:30 Dose: 200 mg Enoxaparin Sodium (Lovenox) 40 mg SC DAILY [facility] Last Admin: 09/12/18 09:34 Dose: 40 mg Escitalopram Oxalate (Lexapro) 10 mg PO DAILY [facility] Last Admin: 09/12/18 09:34 Dose: 10 mg Fluticasone/Vilanterol (Breo Ellipta 200-25 Mcg Inh) 1 puff INH RQ24 [facility] Last Admin: 09/12/18 11:17 Dose: Not Given Gabapentin (Neurontin) 300 mg PO BID [facility] Last Admin: 09/12/18 09:34 Dose: 300 mg Guaifenesin (Robitussin) 100 mg PO Q4H [facility] Last Admin: 09/12/18 13:30 Dose: 100 mg Hydroxyzine HCl (Atarax) 25 mg PO BID PRN PRN Reason: Anxiety Last Admin: 09/12/18 14:53 Dose: 25 mg Methadone HCl (Methadone) 20 mg PO DAILY [facility] Last Admin: 09/12/18 09:34 Dose: 20 mg Methadone HCl (Methadose) 40 mg PO DAILY [facility] Last Admin: 09/12/18 09:34 Dose: 40 mg Methylprednisolone (Solu-Medrol) 40 mg IVP DAILY [facility] Montelukast Sodium (Singulair) 10 mg PO HS [facility] Last Admin: 09/11/18 21:31 Dose: 10 mg Polyethylene Glycol (Miralax) 17 gm PO Q8H PRN PRN Reason: Constipation Last Admin: 09/10/18 09:36 Dose: 17 gm Trazodone HCl (Desyrel) 100 mg PO HS [facility] Last Admin: 09/11/18 21:30 Dose: 100 mg Zolpidem Tartrate (Ambien) 5 mg PO [facility] Last Admin: 09/11/18 21:30 Dose: 5 mg - Labs Labs: 09/07/18 12:20 09/07/18 12:20 Assessment and Plan (1) COPD exacerbation Status: Acute (2) Acute bronchitis Status: Acute (3) Diabetes Status: Acute (4) Dyspnea Status: Acute (5) Methadone dependence Status: Acute
[2018-09-13] MEDS ORDERED: MethylPREDNISolone 40 mg Vial IVP SCH (10:00)
== END 2018-09-12 19:20 | disposition home or self-care (01) | DRG 96 ==
LOC: C.ER 10:04 → C.9E 11:43 → C.5S 17:48 → OBSVTOIN 09-10 08:58
PROVIDERS: ADMIT Internal Medicine Critical Care Medicine; ATTEND Internal Medicine Critical Care Medicine
DX: J20.9 Acute bronchitis, unspecified (principal); J43.9 Emphysema, unspecified; F11.20 Opioid dependence, uncomplicated; D64.9 Anemia, unspecified; Z87.891 Personal history of nicotine dependence; Z90.01 Acquired absence of eye; Z99.81 Dependence on supplemental oxygen; E11.9 Type 2 diabetes mellitus without complications

== ENCOUNTER 2018-10-14 08:26 | Inpatient (IN) | payer OTHER ==
[2018-10-14 08:33] VITALS: BMI 21.7
[2018-10-14] MEDS ORDERED: Albuterol-Ipratrop 3 mg / 0.5 (3 ml) UD ONE ×2 (08:50→09:58)
--- NOTE | 2018-10-14 09:12 | C.PDOC ---
History Of Present Illness 57 y/o female with a PMHx of asthma, COPD, HTN, DM, and emphysema, presents to the ED complaining of feeling short of breath for the past 3-4 days. Associated with cough productive of yellow sputum. She denies any chest pain, dizziness, visual changes, weakness, numbness, or associated complaints. Patient does report heart burn on the left side of chest during interview. Otherwise she denies lower leg swelling or pain. Patient is a former smoker and notes she is on 3L of home O2. States she was recently hospitalized, stayed in a rehab facility, and just returned home. She cannot recall which meds she takes at home, brought list however cannot find it. Time Seen by Provider: 10/14/18 08:50 Chief Complaint (Nursing): Shortness Of Breath History Per: Patient History/Exam Limitations: no limitations Onset/Duration Of Symptoms: Days (3) Current Symptoms Are (Timing): Still Present Current Respiratory Medications: See Home Med List Past Medical History Reviewed: Historical Data, Nursing Documentation, Vital Signs Vital Signs: Last Vital Signs Temp 99 F 10/14/18 08:34 Pulse 119 H 10/14/18 08:34 Resp 19 10/14/18 08:43 BP 114/81 10/14/18 08:34 Pulse Ox 95 10/14/18 08:43 - Medical History PMH: Anemia, Anxiety, Asthma, Bronchitis, Cardia Arrhythmia, COPD, Depression, Diabetes, Emphysema, HTN Denies: Chronic Kidney Disease, Seizures, Sexually Transmitted Disease, Sleep Apnea Surgical History: Back Surgery Denies: Coronary Stent, Pacemaker - [facility] Procedures APPLICATION OF SPLINT (12/18/03) ASSISTANCE WITH RESPIRATORY VENTILATION, 24-96 HRS, CPAP (02/01/17) ASSISTANCE WITH RESPIRATORY VENTILATION, <24 HRS, CPAP (02/27/18) ASSISTANCE WITH RESPIRATORY VENTILATION, >96 HRS, CPAP (01/23/17) DETOXIFICATION SERVICES FOR SUBSTANCE ABUSE TREATMENT (10/31/17) INDIV PSYCHOTHERAPY FOR SUBSTANCE ABUSE TREATMENT, SUPPORT (10/31/17) INDIV PSYCHOTHERAPY FOR SUBSTANCE ABUSE, PSYCHOEDUCATION (10/31/17) INDIVIDUAL PSYCHOTHERAPY, SUPPORTIVE (04/29/17) INJECT/INFUSE NEC (03/17/05) INSERTION OF ENDOTRACHEAL AIRWAY INTO TRACHEA, VIA OPENING (02/01/17) INSERTION OF INFUSION DEV INTO SUP VENA CAVA, PERC APPROACH (02/01/17) INTRODUCE OF OTH THERAP SUBST INTO RESP TRACT, VIA OPENING (01/23/17) INTRODUCE OF OXAZOLIDINONES INTO PERIPH VEIN, PERC APPROACH (02/01/17) MAGNETIC RESONANCE IMAGING OF SPINAL CANAL (07/19/98) RESPIRATORY VENTILATION, LESS THAN 24 CONSECUTIVE HOURS (02/01/17) TETANUS TOXOID ADMINIST (04/24/05) ULTRASONOGRAPHY OF LEFT UPPER EXTREMITY VEINS, GUIDANCE (02/01/17) Family History: States: Unknown Family Hx - Social History Hx Alcohol Use: No Hx Substance Use: Yes (IVDA +HEROIN. ) - Immunization History Hx Tetanus Toxoid Vaccination: Yes Hx Influenza Vaccination: Yes Hx Pneumococcal Vaccination: Yes Review Of Systems Constitutional: Negative for: Fever, Chills Eyes: Negative for: Vision Change Cardiovascular: Positive for: Other (Epigastric burning). Negative for: Chest Pain, Palpitations Respiratory: Positive for: Shortness of Breath Gastrointestinal: Negative for: Vomiting, Diarrhea Skin: Negative for: Rash Neurological: Positive for: Headache. Negative for: Weakness, Numbness, Change in Speech, Dizziness Physical Exam - Physical Exam Appears: Non-toxic, No Acute Distress, Other (appears older than stated age) Skin: Warm, No Rash Head: Atraumatic, Normacephalic Eye(s): bilateral: PERRL, EOMI Oral Mucosa: Moist Neck: Normal ROM, Supple Chest: Symmetrical Cardiovascular: Rhythm Regular, No Murmur Respiratory: Decreased Breath Sounds (Markedly diminished breath sounds throughout), Wheezing (Scant wheezing at the bases) Gastrointestinal/Abdominal: Soft, No Tenderness, No Guarding Extremity: Normal ROM, No Pedal Edema, No Calf Tenderness Pulses: Left Dorsalis Pedis: Normal, Right Dorsalis Pedis: Normal Neurological/Psych: Oriented x3, Normal Speech, Normal Cognition ED Course And Treatment - Laboratory Results Result Diagrams: 10/14/18 09:25 10/14/18 09:25 O2 Sat by Pulse Oximetry: 95 (NC) Pulse Ox Interpretation: Normal Medical Decision Making Medical Decision Making: Initial Plan: Labs ordered including trop, blood gas. Cultures sent. EKG and CXR ordered and reviewed. Administered 125 mg IV Solu-medrol, ASA and Maalox, and 2x duoneb. pt refuses abg and bipap initially, now agress to bipap, now (1121) agrees to it, respiratory called. [address] Ceja from ICU. can be admitted to tele, not ICU Disposition Discussed With : Augustine Rico Doctor Will See Patient In The: Hospital - Disposition Disposition: HOSPITALIZED Disposition Time: 12:10 Condition: SERIOUS Forms: [facility] (Indonesian) - Clinical Impression Clinical Impression: COPD exacerbation, Hypercapnia - PA / TECHNOLOGY SUPPORT ANALYST / Resident Statement MD/DO has reviewed & agrees with the documentation as recorded. - Scribe Statement The provider has reviewed the documentation as recorded by the Scribcharles [place] All medical record entries made by the Aidanibcharles were at my direction and personally dictated by me. I have reviewed the chart and agree that the record accurately reflects my personal performance of the history, physical exam, medical decision making, and the department course for this patient. I have also personally directed, reviewed, and agree with the discharge instructions and disposition.
[2018-10-14] MEDS ORDERED: Albuterol-Ipratrop 3 mg / 0.5 (3 ml) UD INH STA ×2 (09:25→09:51)
[2018-10-14] MEDS ORDERED: MethylPREDNISolone 40 mg Vial IVP STA (09:25)
[2018-10-14] MEDS ORDERED: Aluminum Hydroxide/Magnesium Hydroxide Susp (30 mL) PO STA (09:29)
[2018-10-14 09:36] LABS: BASO # 0.1 K/uL (0.0-0.2); BASO % 0.5 % (0.0-2.0); EOS # 0.1 K/uL (0.0-0.7); EOS % 1.2 % (0.0-4.0); HEMOGLOBIN 15.3 g/dL (11.0-16.0); LYMPH # 2.4 K/uL (1.0-4.3); LYMPH % 22.4 % (20.0-40.0); MEAN CELL VOLUME 95.7 fL (81.0-99.0); MEAN CORPUSCULAR HGB CONC 32.4 g/dL (33.0-37.0); MEAN PLATELET VOLUME 7.9 fL (7.2-11.7); MONO # 0.7 K/uL (0.0-0.8); MONO % 6.6 % (0.0-10.0); NEUT # 7.3 K/uL (1.8-7.0); NEUT % 69.3 % (50.0-75.0); NRBC % 0.1 % (0.0-2.0); RBC 4.95 Mil/uL (3.80-5.20); RED CELL DISTRIBUTION WIDTH 14.9 % (11.5-14.5); WHITE BLOOD COUNT 10.6 K/uL (4.8-10.8)
[2018-10-14] MEDS ORDERED: Aluminum Hydroxide/Magnesium Hydroxide Susp (30 mL) ONE (09:37)
[2018-10-14 09:48] LABS: VENOUS BLOOD GAS BASE EXCESS 19.2 mmol/L (0.0-2.0); VENOUS BLOOD GAS PCO2 83 mmHg (40-60); VENOUS BLOOD GAS PO2 42 mm/Hg (30-55); VENOUS BLOOD PH 7.38 (7.32-7.43)
[2018-10-14 10:19] LABS: ALB/GLOB RATIO 1.3 (1.0-2.1); ALBUMIN 3.9 g/dL (3.5-5.0); ALT/SGPT 96 U/L (9-52); AST/SGOT 86 U/L (14-36); BLOOD UREA NITROGEN 17 mg/dL (7-17); GFR NON-AFRICAN AMERICAN > 60
[2018-10-14 11:06] LABS: SQUAMOUS EPITHIAL 2 /hpf (0-5); URINE BILIRUBIN NEGATIVE (NEGATIVE); URINE BLOOD NEGATIVE (NEGATIVE); URINE CLARITY Clear (Clear); URINE COLOR Yellow (YELLOW); URINE GLUCOSE (UA) NORMAL (Normal); URINE LEUKOCYTE ESTERASE NEG Leu/uL (Negative); URINE PROTEIN NEGATIVE (NEGATIVE)
[2018-10-14 11:29] LABS: BARBITURATES, UR NEGATIVE (NEGATIVE); BENZODIAZEPINES, UR NEGATIVE (NEGATIVE); PHENCYCLIDINE, UR NEGATIVE (NEGATIVE)
[2018-10-14 11:37] LABS: OPIATES, UR NEGATIVE (NEGATIVE)
--- NOTE | 2018-10-14 12:29 | RAD ---
Date of service: 10/14/2018 HISTORY: Wheezing, COPD COMPARISON: 09/07/2018. TECHNIQUE: Chest PA and lateral FINDINGS: LINES AND TUBES: None. LUNG AND PLEURA: The lungs are hyperinflated and there is peribronchial thickening with chronic changes in both lungs. There is no focal consolidation. No pleural effusion or pneumothorax. HEART AND MEDIASTINUM: The heart is not enlarged. No aortic atherosclerotic calcifications present. The hilar and mediastinal contours are within normal limits. SKELETAL STRUCTURES: The bony structures are within normal limits for the patient's age. VISUALIZED UPPER ABDOMEN: Normal. OTHER FINDINGS: None. IMPRESSION: No active pulmonary disease. COPD.
--- NOTE | 2018-10-14 15:50 | CP.PCM.CON ---
History of Present Illness - History of Present Illness History of Present Illness: 57-year-old female with COPD, hypertension, diabetes presented to emergency room complaining of shortness of breath for the past 3-4 days. Shortness of breath associated with cough productive of yellowish sputum. Because of shortness of breath and lethargy patient was placed on BiPAP. ABG consistent with hypercapnia. Patient refusing ABG but responds to vocal commands by opening eyes PMHx: COPD, HTN, DM, PSHx: back surgery Meds: as per EMR Social: denies alcohol, is a smoker, reports IV heroin abuse Allergies: Penicillins Review of Systems - Review of Systems All systems: reviewed and no additional remarkable complaints except (Shortness of breath and lethargy) Past Patient History - Infectious Disease Hx of Infectious Diseases: None - Tetanus Immunizations Tetanus Immunization: Unknown - Past Medical History & Family History Past Medical History?: Yes - Past Social History Smoking Status: Former Smoker - CARDIAC Hx Cardia Arrhythmia: Yes Hx Hypertension: Yes Hx Pacemaker: No - PULMONARY Hx Asthma: Yes Hx Bronchitis: Yes Hx Chronic Obstructive Pulmonary Disease (COPD): Yes Hx Emphysema: Yes Hx Sleep Apnea: No - NEUROLOGICAL Hx Seizures: No - HEENT Hx HEENT Problems: 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 ) - SURGICAL HISTORY Hx Coronary Stent: No - ANESTHESIA Hx Anesthesia: Yes Hx Anesthesia Reactions: No Hx Malignant Hyperthermia: No Meds Allergies/Adverse Reactions: Allergies Allergy/AdvReac Type Severity Reaction Status Date / Time Penicillins Allergy ANAPHYLAXIS Verified 10/14/18 08:38 Physical Exam - Head Exam Head Exam: ATRAUMATIC, NORMOCEPHALIC - ENT Exam ENT Exam: Mucous Membranes Moist - Neck Exam Neck exam: Positive for: Normal Inspection - Respiratory Exam Respiratory Exam: Decreased Breath Sounds - Cardiovascular Exam Cardiovascular Exam: REGULAR RHYTHM - GI/Abdominal Exam GI & Abdominal Exam: Normal Bowel Sounds, Soft - Extremities Exam Extremities exam: Positive for: normal inspection - Neurological Exam Neurological exam: Alert Results - Vital Signs Recent Vital Signs: Last Vital Signs Temp 98.1 F 10/14/18 12:46 Pulse 96 H 10/14/18 14:54 Resp 13 10/14/18 12:46 BP 128/74 10/14/18 12:46 Pulse Ox 97 10/14/18 13:46 - Labs Result Diagrams: 10/14/18 09:25 10/14/18 09:25 Labs: Laboratory Results - last 24 hr 10/14/18 10/14/18 10/14/18 09:25 09:25 09:35 WBC 10.6 RBC 4.95 Hgb 15.3 Hct 47.3 H MCV 95.7 MCH 31.0 MCHC 32.4 L RDW 14.9 H Plt Count 170 MPV 7.9 Neut % (Auto) 69.3 Lymph % (Auto) 22.4 [place] % (Auto) 6.6 Eos % (Auto) 1.2 Baso % (Auto) 0.5 Neut # (Auto) 7.3 H Lymph # (Auto) 2.4 [place] # (Auto) 0.7 Eos # (Auto) 0.1 Baso # (Auto) 0.1 pO2 42 VBG pH 7.38 VBG pCO2 83 H* VBG HCO3 39.3 VBG Total CO2 51.6 H VBG O2 Sat (Calc) 85.1 H VBG Base Excess 19.2 H VBG Potassium 3.8 Glucose 134 H Lactate 0.8 Crit Value Called To Antonette andrade pa Crit Value Called By [place] turner photographer assistant Crit Value Read Back Y Blood Gas Notified Time 950 Sodium 138 140.0 Potassium 4.0 Chloride 91 L 98.0 Carbon Dioxide 43 H* Anion Gap 9 L BUN 17 Creatinine 0.5 L Est GFR ( Amer) > 60 Est GFR (Non-Af Amer) > 60 Random Glucose 136 H Calcium 9.0 Total Bilirubin 0.8 AST 86 H D ALT 96 H D Alkaline Phosphatase 58 Troponin I < 0.0120 Total Protein 7.0 Albumin 3.9 Globulin 3.0 Albumin/Globulin Ratio 1.3 Venous Blood Potassium 3.8 Urine Color Urine Clarity Urine pH Ur Specific [place]ines Urine Protein Urine Glucose (UA) Urine Ketones Urine Blood Urine Nitrate Urine Bilirubin Urine Urobilinogen Ur Leukocyte Esterase Urine WBC (Auto) Urine RBC (Auto) Ur Squamous Epith Cells Urine Opiates Screen Urine Methadone Screen Ur Barbiturates Screen Ur Phencyclidine Scrn Ur Amphetamines Screen U Benzodiazepines Scrn U Oth Cocaine Metabols U Cannabinoids Screen 10/14/18 10/14/18 10:51 10:51 WBC RBC Hgb Hct MCV MCH MCHC RDW Plt Count MPV Neut % (Auto) Lymph % (Auto) [place] % (Auto) Eos % (Auto) Baso % (Auto) Neut # (Auto) Lymph # (Auto) [place] # (Auto) Eos # (Auto) Baso # (Auto) pO2 VBG pH VBG pCO2 VBG HCO3 VBG Total CO2 VBG O2 Sat (Calc) VBG Base Excess VBG Potassium Glucose Lactate Crit Value Called To Crit Value Called By Crit Value Read Back Blood Gas Notified Time Sodium Potassium Chloride Carbon Dioxide Anion Gap BUN Creatinine Est GFR ( Amer) Est GFR (Non-Af Amer) Random Glucose Calcium Total Bilirubin AST ALT Alkaline Phosphatase Troponin I Total Protein Albumin Globulin Albumin/Globulin Ratio Venous Blood Potassium Urine Color Yellow Urine Clarity Clear Urine pH 5.0 Ur Specific Hines 1.018 Urine Protein Negative Urine Glucose (UA) Normal Urine Ketones Negative Urine Blood Negative Urine Nitrate Negative Urine Bilirubin Negative Urine Urobilinogen 2.0 H Ur Leukocyte Esterase Neg Urine WBC (Auto) 2 Urine RBC (Auto) 2 Ur Squamous Epith Cells 2 Urine Opiates Screen Negative Urine Methadone Screen Positive H Ur Barbiturates Screen Negative Ur Phencyclidine Scrn Negative Ur Amphetamines Screen Negative U Benzodiazepines Scrn Negative U Oth Cocaine Metabols Negative U Cannabinoids Screen Negative Assessment & Plan (1) Hypercapnic respiratory failure Status: Acute Comment: Continue BiPAP. Patient refusing ABG. Nebulizer treatment, IV steroids and antibiotics. Follow-up chest x-ray (2) COPD exacerbation Status: Acute
[2018-10-14] MEDS ORDERED: Aritificial Tears (15ml) OD PRN (16:03)
[2018-10-14] MEDS: Enoxaparin 40 mg Syringe SC SCH (17:03)
[2018-10-14] MEDS: guaiFENesin 100 mg/5 ml Syrup UD PO SCH ×2 (17:04→22:03)
[2018-10-14] MEDS: MethylPREDNISolone 40 mg Vial IVP SCH (17:05)
[2018-10-14] MEDS: Albuterol-Ipratrop 3 mg / 0.5 (3 ml) UD INH SCH ×2 (17:52→20:50)
--- NOTE | 2018-10-14 18:41 | CP.PCM.HP ---
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 ) - SURGICAL HISTORY Hx Coronary Stent: No - ANESTHESIA Hx Anesthesia: Yes Hx Anesthesia Reactions: No Hx Malignant Hyperthermia: No Meds Allergies/Adverse Reactions: Allergies Allergy/AdvReac Type Severity Reaction Status Date / Time Penicillins Allergy ANAPHYLAXIS Verified 10/14/18 08:38 Physical Exam - Constitutional Appears: Well - Head Exam Head Exam: ATRAUMATIC, NORMAL INSPECTION, NORMOCEPHALIC - Eye Exam Eye Exam: EOMI, Normal appearance, PERRL Pupil Exam: NORMAL ACCOMODATION, PERRL - ENT Exam ENT Exam: Mucous Membranes Moist, Normal Exam - Neck Exam Neck exam: Positive for: Normal Inspection - Respiratory Exam Respiratory Exam: Decreased Breath Sounds - Cardiovascular Exam Cardiovascular Exam: REGULAR RHYTHM, +S1, +S2 - GI/Abdominal Exam GI & Abdominal Exam: Diminished Bowel Sounds, Soft - Rectal Exam Rectal Exam: Deferred Results - Vital Signs Recent Vital Signs: Last Vital Signs Temp 98.1 F 10/14/18 12:46 Pulse 96 H 10/14/18 17:53 Resp 13 10/14/18 12:46 BP 128/74 10/14/18 12:46 Pulse Ox 97 10/14/18 13:46 - Labs Result Diagrams: 10/14/18 09:25 10/14/18 09:25 Labs: Laboratory Results - last 24 hr 10/14/18 10/14/18 10/14/18 09:25 09:25 09:35 WBC 10.6 RBC 4.95 Hgb 15.3 Hct 47.3 H MCV 95.7 MCH 31.0 MCHC 32.4 L RDW 14.9 H Plt Count 170 MPV 7.9 Neut % (Auto) 69.3 Lymph % (Auto) 22.4 Bonner % (Auto) 6.6 Eos % (Auto) 1.2 Baso % (Auto) 0.5 Neut # (Auto) 7.3 H Lymph # (Auto) 2.4 Bonner # (Auto) 0.7 Eos # (Auto) 0.1 Baso # (Auto) 0.1 pO2 42 VBG pH 7.38 VBG pCO2 83 H* VBG HCO3 39.3 VBG Total CO2 51.6 H VBG O2 Sat (Calc) 85.1 H VBG Base Excess 19.2 H VBG Potassium 3.8 Glucose 134 H Lactate 0.8 Crit Value Called To Antonette andrade pa Crit Value Called By [place] turner printing press machinist Crit Value Read Back Y Blood Gas Notified Time 950 Sodium 138 140.0 Potassium 4.0 Chloride 91 L 98.0 Carbon Dioxide 43 H* Anion Gap 9 L BUN 17 Creatinine 0.5 L Est GFR ( Amer) > 60 Est GFR (Non-Af Amer) > 60 Random Glucose 136 H Calcium 9.0 Total Bilirubin 0.8 AST 86 H D ALT 96 H D Alkaline Phosphatase 58 Troponin I < 0.0120 Total Protein 7.0 Albumin 3.9 Globulin 3.0 Albumin/Globulin Ratio 1.3 Venous Blood Potassium 3.8 Urine Color Urine Clarity Urine pH Ur Specific [place] Urine Protein Urine Glucose (UA) Urine Ketones Urine Blood Urine Nitrate Urine Bilirubin Urine Urobilinogen Ur Leukocyte Esterase Urine WBC (Auto) Urine RBC (Auto) Ur Squamous Epith Cells Urine Opiates Screen Urine Methadone Screen Ur Barbiturates Screen Ur Phencyclidine Scrn Ur Amphetamines Screen U Benzodiazepines Scrn U Oth Cocaine Metabols U Cannabinoids Screen 10/14/18 10/14/18 10:51 10:51 WBC RBC Hgb Hct MCV MCH MCHC RDW Plt Count MPV Neut % (Auto) Lymph % (Auto) [place]ner % (Auto) Eos % (Auto) Baso % (Auto) Neut # (Auto) Lymph # (Auto) [place] # (Auto) Eos # (Auto) Baso # (Auto) pO2 VBG pH VBG pCO2 VBG HCO3 VBG Total CO2 VBG O2 Sat (Calc) VBG Base Excess VBG Potassium Glucose Lactate Crit Value Called To Crit Value Called By Crit Value Read Back Blood Gas Notified Time Sodium Potassium Chloride Carbon Dioxide Anion Gap BUN Creatinine Est GFR ( Amer) Est GFR (Non-Af Amer) Random Glucose Calcium Total Bilirubin AST ALT Alkaline Phosphatase Troponin I Total Protein Albumin Globulin Albumin/Globulin Ratio Venous Blood Potassium Urine Color Yellow Urine Clarity Clear Urine pH 5.0 Ur Specific [place] 1.018 Urine Protein Negative Urine Glucose (UA) Normal Urine Ketones Negative Urine Blood Negative Urine Nitrate Negative Urine Bilirubin Negative Urine Urobilinogen 2.0 H Ur Leukocyte Esterase Neg Urine WBC (Auto) 2 Urine RBC (Auto) 2 Ur Squamous Epith Cells 2 Urine Opiates Screen Negative Urine Methadone Screen Positive H Ur Barbiturates Screen Negative Ur Phencyclidine Scrn Negative Ur Amphetamines Screen Negative U Benzodiazepines Scrn Negative U Oth Cocaine Metabols Negative U Cannabinoids Screen Negative
[2018-10-14] MEDS ORDERED: FLUTICASONE INH SCH (20:00)
[2018-10-14] MEDS ORDERED: SALMETEROL INH SCH (20:00)
[2018-10-14] MEDS ORDERED: Albuterol-Ipratrop 3 mg / 0.5 (3 ml) UD INH SCH (20:00)
[2018-10-14] MEDS ORDERED: Home Med 1 UNIT (Melatonin [Melatonin] 5 MG) PO SCH (22:00)
[2018-10-15] MEDS: MethylPREDNISolone 40 mg Vial IVP SCH ×4 (00:13→18:00)
[2018-10-15] MEDS: guaiFENesin 100 mg/5 ml Syrup UD PO SCH ×6 (00:13→20:30)
[2018-10-15] MEDS: Albuterol-Ipratrop 3 mg / 0.5 (3 ml) UD INH SCH ×6 (00:17→19:56)
[2018-10-15] MEDS: Azithromycin 500 MG in Sodium Chloride 0.9% 250 ML IVPB SCH (09:30)
[2018-10-15] MEDS ORDERED: Home Med 1 UNIT (Umeclidinium Bromide [Incruse Ellipta] 62.5 MCG) IH SCH (10:00)
[2018-10-15] MEDS: Enoxaparin 40 mg Syringe SC SCH (10:24)
--- NOTE | 2018-10-15 13:01 | CP.PCM.PN ---
Subjective - Date & Time of Evaluation Date of Evaluation: 10/15/18 Time of Evaluation: 11:40 - Subjective Subjective: Patient seen and examined Less shortness of breath Patient states that she was on BiPAP all night and during the daytime Patient is awake and responsive and requesting for methadone No fever chills Still refusing ABG Objective - Vital Signs/Intake and Output Vital Signs (last 24 hours): Temp Pulse Resp BP Pulse Ox 97.8 F 74 20 103/68 96 10/15/18 07:15 10/15/18 07:15 10/15/18 07:15 10/15/18 07:15 10/15/18 07:15 - Medications Medications: Current Medications Albuterol/Ipratropium (Duoneb 3 Mg/0.5 Mg (3 Ml) Ud) 3 ml INH RQ4 [facility] Last Admin: 10/15/18 11:09 Dose: 3 ml Docusate Sodium (Colace) 100 mg PO HS [facility] Last Admin: 10/14/18 22:04 Dose: 100 mg Enoxaparin Sodium (Lovenox) 40 mg SC DAILY [facility] Last Admin: 10/15/18 10:24 Dose: 40 mg Escitalopram Oxalate (Lexapro) 10 mg PO DAILY [facility] Last Admin: 10/15/18 10:24 Dose: 10 mg Gabapentin (Neurontin) 300 mg PO BID [facility] Last Admin: 10/15/18 10:24 Dose: 300 mg Guaifenesin (Robitussin) 100 mg PO Q4H [facility] Last Admin: 10/15/18 12:46 Dose: 100 mg Home Med (Propylene Glycol/Peg 400/Pf [Systane 0.3-0.4% Eye Drop]) 2 drop OD Q8H PRN PRN Reason: Dry eyes Home Med (Umeclidinium [place] [Incruse Ellipta]) 62.5 mcg IH DAILY [facility] Azithromycin 500 mg/ Sodium (Chloride) 250 mls @ 250 mls/hr IVPB DAILY [facility]; Protocol Last Admin: 10/15/18 09:30 Dose: 250 mls/hr Methylprednisolone (Solu-Medrol) 40 mg IVP Q6 [facility] Last Admin: 10/15/18 12:46 Dose: 40 mg Montelukast Sodium (Singulair) 10 mg PO HS [facility] Last Admin: 10/14/18 22:04 Dose: 10 mg Pantoprazole Sodium (Protonix Inj) 40 mg IVP DAILY [facility] Last Admin: 10/15/18 10:23 Dose: 40 mg Trazodone HCl (Desyrel) 100 mg PO [facility] Last Admin: 10/14/18 22:04 Dose: 100 mg Zolpidem Tartrate (Ambien) 5 mg PO [facility] - Labs Labs: 10/14/18 09:25 10/14/18 09:25 - Head Exam Head Exam: ATRAUMATIC, NORMOCEPHALIC - ENT Exam ENT Exam: Mucous Membranes Moist - Neck Exam Neck Exam: Normal Inspection - Respiratory Exam Respiratory Exam: Decreased Breath Sounds, Rhonchi, Wheezes - Cardiovascular Exam Cardiovascular Exam: REGULAR RHYTHM - GI/Abdominal Exam GI & Abdominal Exam: Soft, Normal Bowel Sounds Assessment and Plan (1) Hypercapnic respiratory failure Assessment & Plan: Continue BiPAP Refusing ABG Continue nebulizer treatment and steroids Psych evaluation for methadone Antibiotics Status: Acute (2) COPD exacerbation Status: Acute
--- NOTE | 2018-10-15 18:28 | CP.PCM.PN ---
Subjective - Date & Time of Evaluation Date of Evaluation: 10/15/18 Time of Evaluation: 10:30 - Subjective Subjective: clinically same Objective - Vital Signs/Intake and Output Vital Signs (last 24 hours): Temp Pulse Resp BP Pulse Ox 98.2 F 98 H 20 113/75 98 10/15/18 15:00 10/15/18 15:00 10/15/18 15:00 10/15/18 15:00 10/15/18 15:00 - Medications Medications: Current Medications Albuterol/Ipratropium (Duoneb 3 Mg/0.5 Mg (3 Ml) Ud) 3 ml INH RQ4 [facility] Last Admin: 10/15/18 15:55 Dose: 3 ml Docusate Sodium (Colace) 100 mg PO [facility] Last Admin: 10/14/18 22:04 Dose: 100 mg Enoxaparin Sodium (Lovenox) 40 mg SC DAILY [facility] Last Admin: 10/15/18 10:24 Dose: 40 mg Escitalopram Oxalate (Lexapro) 10 mg PO DAILY [facility] Last Admin: 10/15/18 10:24 Dose: 10 mg Gabapentin (Neurontin) 300 mg PO BID [facility] Last Admin: 10/15/18 17:09 Dose: 300 mg Guaifenesin (Robitussin) 100 mg PO Q4H [facility] Last Admin: 10/15/18 17:09 Dose: 100 mg Azithromycin 500 mg/ Sodium (Chloride) 250 mls @ 250 mls/hr IVPB DAILY [facility]; Protocol Last Admin: 10/15/18 09:30 Dose: 250 mls/hr Methadone HCl (Methadone) 60 mg PO DAILY [facility] Methylprednisolone (Solu-Medrol) 40 mg IVP Q6 [facility] Last Admin: 10/15/18 12:46 Dose: 40 mg Montelukast Sodium (Singulair) 10 mg PO HS [facility] Last Admin: 10/14/18 22:04 Dose: 10 mg Pantoprazole Sodium (Protonix Inj) 40 mg IVP DAILY [facility] Last Admin: 10/15/18 10:23 Dose: 40 mg Trazodone HCl (Desyrel) 100 mg PO HS [facility] Last Admin: 10/14/18 22:04 Dose: 100 mg Zolpidem Tartrate (Ambien) 5 mg PO [facility] - Labs Labs: 10/14/18 09:25 10/14/18 09:25 - Constitutional Appears: Well - Head Exam Head Exam: ATRAUMATIC, NORMAL INSPECTION, NORMOCEPHALIC - Eye Exam Eye Exam: EOMI, Normal appearance, PERRL Pupil Exam: NORMAL ACCOMODATION, PERRL - ENT Exam ENT Exam: Mucous Membranes Moist, Normal Exam - Neck Exam Neck Exam: Full ROM, Normal Inspection. absent: Lymphadenopathy - Respiratory Exam Respiratory Exam: Decreased Breath Sounds - Cardiovascular Exam Cardiovascular Exam: REGULAR RHYTHM, +S1, +S2 - GI/Abdominal Exam GI & Abdominal Exam: Soft, Diminished Bowel Sounds - Rectal Exam Rectal Exam: Deferred
--- NOTE | 2018-10-16 00:07 | CARD ---
APPROVED REPORT Date of service: 10/14/2018 EKG Measurement Heart [id number] <Conclusion> Sinus rhythm with short DE Otherwise normal ECG
[2018-10-16] MEDS: Albuterol-Ipratrop 3 mg / 0.5 (3 ml) UD INH SCH ×7 (01:00→23:56)
[2018-10-16] MEDS: guaiFENesin 100 mg/5 ml Syrup UD PO SCH ×6 (04:50→23:56)
[2018-10-16] MEDS: MethylPREDNISolone 40 mg Vial IVP SCH ×5 (06:38→23:56)
[2018-10-16 09:08] LABS: BASO % 0.3 % (0.0-2.0); HEMOGLOBIN 14.2 g/dL (11.0-16.0); LYMPH # 0.7 K/uL (1.0-4.3); LYMPH % 5.4 % (20.0-40.0); MEAN CELL VOLUME 95.6 fL (81.0-99.0); MEAN CORPUSCULAR HEMOGLOBIN 31.2 pg (27.0-31.0); MEAN CORPUSCULAR HGB CONC 32.6 g/dL (33.0-37.0); MEAN PLATELET VOLUME 8.5 fL (7.2-11.7); MONO # 0.4 K/uL (0.0-0.8); MONO % 2.8 % (0.0-10.0); NEUT % 91.5 % (50.0-75.0); PLATELET COUNT 177 K/uL (130-400); RBC 4.55 Mil/uL (3.80-5.20); RED CELL DISTRIBUTION WIDTH 14.4 % (11.5-14.5); WHITE BLOOD COUNT 13.1 K/uL (4.8-10.8)
[2018-10-16 09:33] LABS: ALB/GLOB RATIO 1.6 (1.0-2.1); ALBUMIN 3.7 g/dL (3.5-5.0); ALT/SGPT 65 U/L (9-52); AST/SGOT 43 U/L (14-36); BLOOD UREA NITROGEN 25 mg/dL (7-17); CALCIUM 8.8 mg/dl (8.6-10.4); GFR NON-AFRICAN AMERICAN > 60
[2018-10-16 09:37] LABS: BANDS 3 % (0-2); LYMPHOCYTE 6 % (20-40); MONOCYTE 3 % (0-10); NEUTROPHIL 88 % (50-75); PLATELET ESTIMATE NORMAL (NORMAL); TOTAL CELLS COUNTED 100
[2018-10-16 09:38] LABS: ANISOCYTOSIS SLIGHT
[2018-10-16] MEDS: Enoxaparin 40 mg Syringe SC SCH (09:54)
[2018-10-16] MEDS: Azithromycin 500 MG in Sodium Chloride 0.9% 250 ML IVPB SCH (09:57)
[2018-10-16] MEDS: (Novolog) Insulin Aspart, Recombinant 100 u/ml 10 ml vial SC SCH ×3 (12:04→22:06)
--- NOTE | 2018-10-16 13:02 | CP.PCM.PN ---
Subjective - Date & Time of Evaluation Date of Evaluation: 10/16/18 Time of Evaluation: 10:45 - Subjective Subjective: clinically same Objective - Vital Signs/Intake and Output Vital Signs (last 24 hours): Temp Pulse Resp BP Pulse Ox 97.7 F 120 H 20 113/72 92 L 10/16/18 07:30 10/16/18 11:51 10/16/18 07:30 10/16/18 07:30 10/16/18 11:51 Intake and Output: 10/16/18 10/16/18 06:59 18:59 Intake Total 650 Output Total 600 Balance 50 - Medications Medications: Current Medications Albuterol/Ipratropium (Duoneb 3 Mg/0.5 Mg (3 Ml) Ud) 3 ml INH RQ4 [facility] Last Admin: 10/16/18 11:04 Dose: 3 ml Docusate Sodium (Colace) 200 mg PO HS [facility] Enoxaparin Sodium (Lovenox) 40 mg SC DAILY [facility] Last Admin: 10/16/18 09:54 Dose: 40 mg Escitalopram Oxalate (Lexapro) 10 mg PO DAILY [facility] Last Admin: 10/15/18 10:24 Dose: 10 mg Gabapentin (Neurontin) 300 mg PO BID [facility] Last Admin: 10/16/18 09:55 Dose: 300 mg Guaifenesin (Robitussin) 100 mg PO Q4H [facility] Last Admin: 10/16/18 12:06 Dose: 100 mg Azithromycin 500 mg/ Sodium (Chloride) 250 mls @ 250 mls/hr IVPB DAILY [facility]; Protocol Last Admin: 10/16/18 09:57 Dose: 250 mls/hr Insulin Aspart (Novolog) 0 unit SC ACHS [facility]; Protocol Last Admin: 10/16/18 12:04 Dose: 12 u Methadone HCl (Methadone) 60 mg PO DAILY [facility] Last Admin: 10/16/18 09:54 Dose: 60 mg Methylprednisolone (Solu-Medrol) 40 mg IVP Q6 [facility] Last Admin: 10/16/18 12:05 Dose: 40 mg Montelukast Sodium (Singulair) 10 mg PO HS [facility] Last Admin: 10/15/18 22:31 Dose: 10 mg Pantoprazole Sodium (Protonix Inj) 40 mg IVP DAILY [facility] Last Admin: 10/16/18 09:52 Dose: 40 mg Trazodone HCl (Desyrel) 100 mg PO HS [facility] Last Admin: 10/15/18 22:32 Dose: 100 mg Zolpidem Tartrate (Ambien) 5 mg PO [facility] Last Admin: 10/15/18 22:32 Dose: 5 mg - Labs Labs: 10/16/18 09:05 10/16/18 09:05 - Constitutional Appears: Well - Head Exam Head Exam: ATRAUMATIC, NORMAL INSPECTION, NORMOCEPHALIC - Eye Exam Eye Exam: EOMI, Normal appearance, PERRL Pupil Exam: NORMAL ACCOMODATION, PERRL - ENT Exam ENT Exam: Mucous Membranes Moist, Normal Exam - Neck Exam Neck Exam: Full ROM, Normal Inspection. absent: Lymphadenopathy - Respiratory Exam Respiratory Exam: Decreased Breath Sounds - Cardiovascular Exam Cardiovascular Exam: REGULAR RHYTHM, +S1, +S2 - GI/Abdominal Exam GI & Abdominal Exam: Soft, Diminished Bowel Sounds - Rectal Exam Rectal Exam: Deferred
--- NOTE | 2018-10-16 18:02 | CP.PCM.PN ---
Subjective - Date & Time of Evaluation Date of Evaluation: 10/16/18 Time of Evaluation: 17:00 - Subjective Subjective: Patient seen and examined Breathing better Off BiPAP Continue steroids and nebulizer treatment BiPAP at night Methadone Antibiotics Objective - Vital Signs/Intake and Output Vital Signs (last 24 hours): Temp Pulse Resp BP Pulse Ox 98.2 F 104 H 20 121/67 97 10/16/18 15:00 10/16/18 16:28 10/16/18 15:00 10/16/18 15:00 10/16/18 15:00 Intake and Output: 10/16/18 10/16/18 06:59 18:59 Intake Total 650 250 Output Total 600 Balance 50 250 - Medications Medications: Current Medications Albuterol/Ipratropium (Duoneb 3 Mg/0.5 Mg (3 Ml) Ud) 3 ml INH RQ4 [facility] Last Admin: 10/16/18 16:27 Dose: 3 ml Docusate Sodium (Colace) 200 mg PO HS [facility] Enoxaparin Sodium (Lovenox) 40 mg SC DAILY [facility] Last Admin: 10/16/18 09:54 Dose: 40 mg Escitalopram Oxalate (Lexapro) 10 mg PO DAILY [facility] Last Admin: 10/16/18 09:55 Dose: 10 mg Gabapentin (Neurontin) 300 mg PO BID [facility] Last Admin: 10/16/18 17:16 Dose: 300 mg Guaifenesin (Robitussin) 100 mg PO Q4H [facility] Last Admin: 10/16/18 17:16 Dose: 100 mg Azithromycin 500 mg/ Sodium (Chloride) 250 mls @ 250 mls/hr IVPB DAILY [facility]; Protocol Last Admin: 10/16/18 09:57 Dose: 250 mls/hr Insulin Aspart (Novolog) 0 unit SC ACHS [facility]; Protocol Last Admin: 10/16/18 17:17 Dose: 6 u Methadone HCl (Methadone) 60 mg PO DAILY [facility] Last Admin: 10/16/18 09:54 Dose: 60 mg Methylprednisolone (Solu-Medrol) 40 mg IVP Q6 [facility] Last Admin: 10/16/18 12:05 Dose: 40 mg Montelukast Sodium (Singulair) 10 mg PO HS [facility] Last Admin: 10/15/18 22:31 Dose: 10 mg Pantoprazole Sodium (Protonix Inj) 40 mg IVP DAILY [facility] Last Admin: 10/16/18 09:52 Dose: 40 mg Trazodone HCl (Desyrel) 100 mg PO HS [facility] Last Admin: 10/15/18 22:32 Dose: 100 mg Zolpidem Tartrate (Ambien) 5 mg PO HS [facility] Last Admin: 10/15/18 22:32 Dose: 5 mg - Labs Labs: 10/16/18 09:05 10/16/18 09:05 Assessment and Plan (1) Hypercapnic respiratory failure Status: Acute (2) COPD exacerbation Status: Acute
[2018-10-17] MEDS: Albuterol-Ipratrop 3 mg / 0.5 (3 ml) UD INH SCH ×6 (04:15→23:44)
[2018-10-17] MEDS: guaiFENesin 100 mg/5 ml Syrup UD PO SCH ×5 (05:20→22:19)
[2018-10-17] MEDS: MethylPREDNISolone 40 mg Vial IVP SCH ×3 (06:37→17:42)
[2018-10-17] MEDS: (Novolog) Insulin Aspart, Recombinant 100 u/ml 10 ml vial SC SCH ×4 (08:24→22:18)
[2018-10-17] MEDS: Azithromycin 500 MG in Sodium Chloride 0.9% 250 ML IVPB SCH (09:50)
[2018-10-17] MEDS: Enoxaparin 40 mg Syringe SC SCH (09:50)
--- NOTE | 2018-10-17 13:03 | CP.PCM.PCO ---
Physician Communication Note - Physician Communication Note Physician Communication Note: see above
--- NOTE | 2018-10-17 14:21 | CP.PCM.PN ---
Subjective - Date & Time of Evaluation Date of Evaluation: 10/17/18 Time of Evaluation: 12:00 - Subjective Subjective: clinically same Objective - Vital Signs/Intake and Output Vital Signs (last 24 hours): Temp Pulse Resp BP Pulse Ox 98.3 F 91 H 20 130/77 95 10/17/18 08:07 10/17/18 08:07 10/17/18 08:07 10/17/18 08:07 10/17/18 08:07 Intake and Output: 10/17/18 10/17/18 06:59 18:59 Intake Total 600 Output Total 600 Balance 0 - Medications Medications: Current Medications Albuterol/Ipratropium (Duoneb 3 Mg/0.5 Mg (3 Ml) Ud) 3 ml INH RQ4 [facility] Last Admin: 10/17/18 12:08 Dose: 3 ml Docusate Sodium (Colace) 200 mg PO HS [facility] Last Admin: 10/16/18 22:05 Dose: 200 mg Enoxaparin Sodium (Lovenox) 40 mg SC DAILY [facility] Last Admin: 10/17/18 09:50 Dose: 40 mg Escitalopram Oxalate (Lexapro) 10 mg PO DAILY [facility] Last Admin: 10/17/18 09:45 Dose: 10 mg Gabapentin (Neurontin) 300 mg PO BID [facility] Last Admin: 10/17/18 09:45 Dose: 300 mg Guaifenesin (Robitussin) 100 mg PO Q4H [facility] Last Admin: 10/17/18 12:19 Dose: 100 mg Azithromycin 500 mg/ Sodium (Chloride) 250 mls @ 250 mls/hr IVPB DAILY [facility]; Protocol Last Admin: 10/17/18 09:50 Dose: 250 mls/hr Insulin Aspart (Novolog) 0 unit SC ACHS [facility]; Protocol Last Admin: 10/17/18 12:25 Dose: 10 u Methadone HCl (Methadone) 60 mg PO DAILY [facility] Last Admin: 10/17/18 09:49 Dose: 60 mg Methylprednisolone (Solu-Medrol) 40 mg IVP Q6 [facility] Last Admin: 10/17/18 12:18 Dose: 40 mg Montelukast Sodium (Singulair) 10 mg PO HS [facility] Last Admin: 10/16/18 22:05 Dose: 10 mg Pantoprazole Sodium (Protonix Inj) 40 mg IVP DAILY [facility] Last Admin: 10/17/18 09:49 Dose: 40 mg Trazodone HCl (Desyrel) 100 mg PO [facility] Last Admin: 10/16/18 22:06 Dose: 100 mg Zolpidem Tartrate (Ambien) 5 mg PO [facility] Last Admin: 10/16/18 22:06 Dose: 5 mg - Labs Labs: 10/16/18 09:05 10/16/18 09:05
--- NOTE | 2018-10-17 17:23 | CP.PCM.PN ---
Subjective - Date & Time of Evaluation Date of Evaluation: 10/17/18 Time of Evaluation: 10:40 - Subjective Subjective: Patient seen and examined Breathing better BiPAP at night or as needed On methadone Patient is awake and responsive Afebrile Objective - Vital Signs/Intake and Output Vital Signs (last 24 hours): Temp Pulse Resp BP Pulse Ox 98.2 F 113 H 22 129/83 94 L 10/17/18 15:32 10/17/18 15:32 10/17/18 15:32 10/17/18 15:32 10/17/18 15:32 Intake and Output: 10/17/18 10/17/18 06:59 18:59 Intake Total 600 Output Total 600 Balance 0 - Medications Medications: Current Medications Albuterol/Ipratropium (Duoneb 3 Mg/0.5 Mg (3 Ml) Ud) 3 ml INH RQ4 [facility] Last Admin: 10/17/18 15:52 Dose: 3 ml Alprazolam (Xanax) 0.5 mg PO BID PRN PRN Reason: Anxiety Last Admin: 10/17/18 16:23 Dose: 0.5 mg Docusate Sodium (Colace) 200 mg PO HS [facility] Last Admin: 10/16/18 22:05 Dose: 200 mg Enoxaparin Sodium (Lovenox) 40 mg SC DAILY [facility] Last Admin: 10/17/18 09:50 Dose: 40 mg Escitalopram Oxalate (Lexapro) 10 mg PO DAILY [facility] Last Admin: 10/17/18 09:45 Dose: 10 mg Gabapentin (Neurontin) 300 mg PO BID [facility] Last Admin: 10/17/18 09:45 Dose: 300 mg Guaifenesin (Robitussin) 100 mg PO Q4H [facility] Last Admin: 10/17/18 16:23 Dose: 100 mg Azithromycin 500 mg/ Sodium (Chloride) 250 mls @ 250 mls/hr IVPB DAILY [facility]; Protocol Last Admin: 10/17/18 09:50 Dose: 250 mls/hr Insulin Aspart (Novolog) 0 unit SC ACHS [facility]; Protocol Last Admin: 10/17/18 12:25 Dose: 10 u Methadone HCl (Methadone) 60 mg PO DAILY [facility] Last Admin: 10/17/18 09:49 Dose: 60 mg Methylprednisolone (Solu-Medrol) 40 mg IVP Q6 [facility] Last Admin: 10/17/18 12:18 Dose: 40 mg Montelukast Sodium (Singulair) 10 mg PO [facility] Last Admin: 10/16/18 22:05 Dose: 10 mg Pantoprazole Sodium (Protonix Inj) 40 mg IVP DAILY [facility] Last Admin: 10/17/18 09:49 Dose: 40 mg Trazodone HCl (Desyrel) 100 mg PO [facility] Last Admin: 10/16/18 22:06 Dose: 100 mg Zolpidem Tartrate (Ambien) 5 mg PO [facility] Last Admin: 10/16/18 22:06 Dose: 5 mg - Labs Labs: 10/16/18 09:05 10/16/18 09:05 - Head Exam Head Exam: ATRAUMATIC, NORMOCEPHALIC - ENT Exam ENT Exam: Mucous Membranes Moist - Respiratory Exam Respiratory Exam: Decreased Breath Sounds Assessment and Plan (1) Hypercapnic respiratory failure Assessment & Plan: BiPAP at night Continue steroids and nebulizer treatment Clinically improving Antibiotics Follow-up ABG if patient agrees Status: Acute (2) COPD exacerbation Status: Acute
[2018-10-18] MEDS: MethylPREDNISolone 40 mg Vial IVP SCH ×4 (00:27→17:05)
[2018-10-18] MEDS: guaiFENesin 100 mg/5 ml Syrup UD PO SCH ×7 (00:27→21:42)
[2018-10-18] MEDS: Albuterol-Ipratrop 3 mg / 0.5 (3 ml) UD INH SCH ×5 (03:28→20:06)
[2018-10-18] MEDS: (Novolog) Insulin Aspart, Recombinant 100 u/ml 10 ml vial SC SCH ×4 (08:20→21:40)
[2018-10-18] MEDS: Enoxaparin 40 mg Syringe SC SCH (09:14)
[2018-10-18] MEDS: Azithromycin 500 MG in Sodium Chloride 0.9% 250 ML IVPB SCH (09:14)
--- NOTE | 2018-10-18 15:54 | CP.PCM.PN ---
Subjective - Date & Time of Evaluation Date of Evaluation: 10/18/18 Time of Evaluation: 12:00 - Subjective Subjective: Patient seen and examined at bedside Patient is awake and responsive at bedside She states she is breathing better Currently using the BiPAP in the evening or if it is needed She is afebrile Denies fever, chills, nausea, vomiting, chest pain, Physical Exam Gen: AAOx3, anxious Cardio: RRR, no murmur Pulm: Wheezing bilaterally Ab: soft non distended A/P COPD -continue Duonebs -continue Solu-Medrol -Continue BPAP -Chest Xray on 10/14/18 showed COPD with no active pulmonary disease Objective - Vital Signs/Intake and Output Vital Signs (last 24 hours): Temp Pulse Resp BP Pulse Ox 97.3 F L 100 H 20 107/73 96 10/18/18 15:00 10/18/18 15:00 10/18/18 15:00 10/18/18 15:00 10/18/18 15:00 Intake and Output: 10/18/18 10/18/18 06:59 18:59 Output Total 400 Balance -400 - Medications Medications: Current Medications Albuterol/Ipratropium (Duoneb 3 Mg/0.5 Mg (3 Ml) Ud) 3 ml INH RQ4 [facility] Last Admin: 10/18/18 13:53 Dose: 3 ml Alprazolam (Xanax) 0.5 mg PO BID PRN PRN Reason: Anxiety Last Admin: 10/17/18 16:23 Dose: 0.5 mg Docusate Sodium (Colace) 200 mg PO HS [facility] Last Admin: 10/17/18 22:17 Dose: 200 mg Enoxaparin Sodium (Lovenox) 40 mg SC DAILY [facility] Last Admin: 10/18/18 09:14 Dose: 40 mg Escitalopram Oxalate (Lexapro) 10 mg PO DAILY [facility] Last Admin: 10/18/18 09:14 Dose: 10 mg Gabapentin (Neurontin) 300 mg PO BID [facility] Last Admin: 10/18/18 09:14 Dose: 300 mg Guaifenesin (Robitussin) 100 mg PO Q4H [facility] Last Admin: 10/18/18 09:13 Dose: 100 mg Azithromycin 500 mg/ Sodium (Chloride) 250 mls @ 250 mls/hr IVPB DAILY [facility]; Protocol Last Admin: 10/18/18 09:14 Dose: 250 mls/hr Insulin Aspart (Novolog) 0 unit SC ACHS [facility]; Protocol Last Admin: 10/18/18 11:53 Dose: 10 u Methadone HCl (Methadone) 60 mg PO DAILY [facility] Last Admin: 10/18/18 09:14 Dose: 60 mg Methylprednisolone (Solu-Medrol) 40 mg IVP Q6 [facility] Last Admin: 10/18/18 11:52 Dose: 40 mg Montelukast Sodium (Singulair) 10 mg PO HS [facility] Last Admin: 10/17/18 22:19 Dose: 10 mg Pantoprazole Sodium (Protonix Ec Tab) 40 mg PO DAILY [facility] Trazodone HCl (Desyrel) 100 mg PO HS [facility] Last Admin: 10/17/18 22:17 Dose: 100 mg Zolpidem Tartrate (Ambien) 5 mg PO HS [facility] Last Admin: 10/17/18 22:17 Dose: 5 mg - Labs Labs: 10/16/18 09:05 10/16/18 09:05 Assessment and Plan (1) Hypercapnic respiratory failure Status: Acute (2) COPD exacerbation Status: Acute
--- NOTE | 2018-10-18 18:01 | CP.PCM.PN ---
Subjective - Date & Time of Evaluation Date of Evaluation: 10/18/18 Time of Evaluation: 11:30 - Subjective Subjective: clinically same Objective - Vital Signs/Intake and Output Vital Signs (last 24 hours): Temp Pulse Resp BP Pulse Ox 97.3 F L 100 H 20 107/73 96 10/18/18 15:00 10/18/18 15:00 10/18/18 15:00 10/18/18 15:00 10/18/18 15:00 Intake and Output: 10/18/18 10/18/18 06:59 18:59 Output Total 400 Balance -400 - Medications Medications: Current Medications Albuterol/Ipratropium (Duoneb 3 Mg/0.5 Mg (3 Ml) Ud) 3 ml INH RQ4 [facility] Last Admin: 10/18/18 16:22 Dose: 3 ml Alprazolam (Xanax) 0.5 mg PO BID PRN PRN Reason: Anxiety Last Admin: 10/17/18 16:23 Dose: 0.5 mg Docusate Sodium (Colace) 200 mg PO HS [facility] Last Admin: 10/17/18 22:17 Dose: 200 mg Enoxaparin Sodium (Lovenox) 40 mg SC DAILY [facility] Last Admin: 10/18/18 09:14 Dose: 40 mg Escitalopram Oxalate (Lexapro) 10 mg PO DAILY [facility] Last Admin: 10/18/18 09:14 Dose: 10 mg Gabapentin (Neurontin) 300 mg PO BID [facility] Last Admin: 10/18/18 17:03 Dose: 300 mg Guaifenesin (Robitussin) 100 mg PO Q4H [facility] Last Admin: 10/18/18 17:05 Dose: 100 mg Azithromycin 500 mg/ Sodium (Chloride) 250 mls @ 250 mls/hr IVPB DAILY [facility]; Protocol Last Admin: 10/18/18 09:14 Dose: 250 mls/hr Insulin Aspart (Novolog) 0 unit SC ACHS [facility]; Protocol Last Admin: 10/18/18 17:04 Dose: 8 u Methadone HCl (Methadone) 60 mg PO DAILY [facility] Last Admin: 10/18/18 09:14 Dose: 60 mg Methylprednisolone (Solu-Medrol) 40 mg IVP Q6 [facility] Last Admin: 10/18/18 17:05 Dose: 40 mg Montelukast Sodium (Singulair) 10 mg PO HS [facility] Last Admin: 10/17/18 22:19 Dose: 10 mg Pantoprazole Sodium (Protonix Ec Tab) 40 mg PO DAILY [facility] Trazodone HCl (Desyrel) 100 mg PO HS [facility] Last Admin: 10/17/18 22:17 Dose: 100 mg Zolpidem Tartrate (Ambien) 5 mg PO HS [facility] Last Admin: 10/17/18 22:17 Dose: 5 mg - Labs Labs: 10/16/18 09:05 10/16/18 09:05
[2018-10-19] MEDS: Albuterol-Ipratrop 3 mg / 0.5 (3 ml) UD INH SCH ×7 (00:16→23:51)
[2018-10-19] MEDS: MethylPREDNISolone 40 mg Vial IVP SCH ×4 (00:26→17:17)
[2018-10-19] MEDS: guaiFENesin 100 mg/5 ml Syrup UD PO SCH ×6 (00:26→21:51)
[2018-10-19] MEDS: (Novolog) Insulin Aspart, Recombinant 100 u/ml 10 ml vial SC SCH ×4 (08:05→21:50)
[2018-10-19] MEDS: Enoxaparin 40 mg Syringe SC SCH (09:07)
[2018-10-19] MEDS: Azithromycin 500 MG in Sodium Chloride 0.9% 250 ML IVPB SCH (09:09)
[2018-10-19] MEDS: Pantoprazole 40 mg EC Tab PO SCH (09:27)
[2018-10-19] MEDS ORDERED: Pantoprazole 40 mg EC Tab PO SCH (10:00)
--- NOTE | 2018-10-19 16:01 | CP.PCM.PN ---
Subjective - Date & Time of Evaluation Date of Evaluation: 10/19/18 Time of Evaluation: 14:00 - Subjective Subjective: Patient seen and examined at bedside, afebrile. Patient complained of shortness of breath last night before receiving medication, is now resting comfortably. Denied SOB, chest pain, fever, chills. Physical Exam Gen: alert and awake, no acute distress Cardio: RRR, no murmur Pulm: wheezing b/l, no accessory muscle use GI: soft, nontender A&P 1. COPD Continue Duoneb Continue solu-medrol -Continue BiPAP 2. Hypercapnic respiratory failure Objective - Vital Signs/Intake and Output Vital Signs (last 24 hours): Temp Pulse Resp BP Pulse Ox 97.6 F 86 20 135/78 96 10/19/18 08:33 10/19/18 08:33 10/19/18 08:33 10/19/18 08:33 10/19/18 08:33 Intake and Output: 10/19/18 10/19/18 06:59 18:59 Intake Total 30 Output Total 400 Balance -370 - Medications Medications: Current Medications Albuterol/Ipratropium (Duoneb 3 Mg/0.5 Mg (3 Ml) Ud) 3 ml INH RQ4 [facility] Last Admin: 10/19/18 11:18 Dose: 3 ml Alprazolam (Xanax) 0.5 mg PO BID PRN PRN Reason: Anxiety Last Admin: 10/17/18 16:23 Dose: 0.5 mg Docusate Sodium (Colace) 200 mg PO HS [facility] Last Admin: 10/18/18 21:43 Dose: 200 mg Enoxaparin Sodium (Lovenox) 40 mg SC DAILY [facility] Last Admin: 10/19/18 09:07 Dose: 40 mg Escitalopram Oxalate (Lexapro) 10 mg PO DAILY [facility] Last Admin: 10/19/18 09:07 Dose: 10 mg Gabapentin (Neurontin) 300 mg PO BID [facility] Last Admin: 10/19/18 09:07 Dose: 300 mg Guaifenesin (Robitussin) 100 mg PO Q4H [facility] Last Admin: 10/19/18 12:43 Dose: 100 mg Azithromycin 500 mg/ Sodium (Chloride) 250 mls @ 250 mls/hr IVPB DAILY [facility]; Protocol Last Admin: 10/19/18 09:09 Dose: 250 mls/hr Insulin Aspart (Novolog) 0 unit SC ACHS [facility]; Protocol Last Admin: 10/19/18 12:43 Dose: 10 u Methadone HCl (Methadone) 60 mg PO DAILY [facility] Last Admin: 10/19/18 09:07 Dose: 60 mg Methylprednisolone (Solu-Medrol) 40 mg IVP Q6 [facility] Last Admin: 10/19/18 12:43 Dose: 40 mg Montelukast Sodium (Singulair) 10 mg PO HS [facility] Last Admin: 10/18/18 21:43 Dose: 10 mg Pantoprazole Sodium (Protonix Ec Tab) 40 mg PO DAILY [facility] Last Admin: 10/19/18 09:27 Dose: Not Given Trazodone HCl (Desyrel) 100 mg PO [facility] Last Admin: 10/18/18 21:44 Dose: 100 mg Zolpidem Tartrate (Ambien) 5 mg PO HS [facility] Last Admin: 10/18/18 21:43 Dose: 5 mg - Labs Labs: 10/16/18 09:05 10/16/18 09:05 Assessment and Plan (1) Hypercapnic respiratory failure Status: Acute (2) COPD exacerbation Status: Acute
--- NOTE | 2018-10-19 17:27 | CP.PCM.PN ---
Subjective - Date & Time of Evaluation Date of Evaluation: 10/19/18 Time of Evaluation: 11:00 - Subjective Subjective: clinically same Objective - Vital Signs/Intake and Output Vital Signs (last 24 hours): Temp Pulse Resp BP Pulse Ox 97.6 F 86 20 135/78 96 10/19/18 08:33 10/19/18 08:33 10/19/18 08:33 10/19/18 08:33 10/19/18 08:33 Intake and Output: 10/19/18 10/19/18 06:59 18:59 Intake Total 30 Output Total 400 Balance -370 - Medications Medications: Current Medications Albuterol/Ipratropium (Duoneb 3 Mg/0.5 Mg (3 Ml) Ud) 3 ml INH RQ4 [facility] Last Admin: 10/19/18 16:10 Dose: 3 ml Alprazolam (Xanax) 0.5 mg PO BID PRN PRN Reason: Anxiety Last Admin: 10/17/18 16:23 Dose: 0.5 mg Docusate Sodium (Colace) 200 mg PO HS [facility] Last Admin: 10/18/18 21:43 Dose: 200 mg Enoxaparin Sodium (Lovenox) 40 mg SC DAILY [facility] Last Admin: 10/19/18 09:07 Dose: 40 mg Escitalopram Oxalate (Lexapro) 10 mg PO DAILY [facility] Last Admin: 10/19/18 09:07 Dose: 10 mg Gabapentin (Neurontin) 300 mg PO BID [facility] Last Admin: 10/19/18 17:18 Dose: 300 mg Guaifenesin (Robitussin) 100 mg PO Q4H [facility] Last Admin: 10/19/18 17:17 Dose: 100 mg Azithromycin 500 mg/ Sodium (Chloride) 250 mls @ 250 mls/hr IVPB DAILY [facility]; Protocol Last Admin: 10/19/18 09:09 Dose: 250 mls/hr Insulin Aspart (Novolog) 0 unit SC ACHS [facility]; Protocol Last Admin: 10/19/18 17:22 Dose: 10 u Methadone HCl (Methadone) 60 mg PO DAILY [facility] Last Admin: 10/19/18 09:07 Dose: 60 mg Methylprednisolone (Solu-Medrol) 40 mg IVP Q6 [facility] Last Admin: 10/19/18 17:17 Dose: 40 mg Montelukast Sodium (Singulair) 10 mg PO HS [facility] Last Admin: 10/18/18 21:43 Dose: 10 mg Pantoprazole Sodium (Protonix Ec Tab) 40 mg PO DAILY [facility] Last Admin: 10/19/18 09:27 Dose: Not Given Trazodone HCl (Desyrel) 100 mg PO [facility] Last Admin: 10/18/18 21:44 Dose: 100 mg Zolpidem Tartrate (Ambien) 5 mg PO [facility] Last Admin: 10/18/18 21:43 Dose: 5 mg - Labs Labs: 10/16/18 09:05 10/16/18 09:05
[2018-10-20] MEDS: guaiFENesin 100 mg/5 ml Syrup UD PO SCH ×6 (00:24→21:58)
[2018-10-20] MEDS: MethylPREDNISolone 40 mg Vial IVP SCH ×4 (00:25→21:58)
[2018-10-20] MEDS: Albuterol-Ipratrop 3 mg / 0.5 (3 ml) UD INH SCH ×6 (03:18→23:47)
[2018-10-20] MEDS: (Novolog) Insulin Aspart, Recombinant 100 u/ml 10 ml vial SC SCH ×4 (08:15→21:42)
[2018-10-20] MEDS: Pantoprazole 40 mg EC Tab PO SCH (09:18)
[2018-10-20] MEDS: Enoxaparin 40 mg Syringe SC SCH (09:19)
[2018-10-20] MEDS: Azithromycin 500 MG in Sodium Chloride 0.9% 250 ML IVPB SCH (09:26)
--- NOTE | 2018-10-20 17:22 | CP.PCM.PN ---
Subjective - Date & Time of Evaluation Date of Evaluation: 10/20/18 Time of Evaluation: 11:00 - Subjective Subjective: Patient seen and examined at bedside Patient is awake and responsive at bedside She states she is breathing better Currently using the BiPAP in the evening or if it is needed She is afebrile Denies fever, chills, nausea, vomiting, chest pain, Physical Exam Gen: AAOx3, anxious Cardio: RRR, no murmur Pulm: Wheezing bilaterally Ab: soft non distended A/P COPD -continue Duonebs -continue Solu-Medrol -Continue BPAP Objective - Vital Signs/Intake and Output Vital Signs (last 24 hours): Temp Pulse Resp BP Pulse Ox 97.9 F 68 20 123/69 98 10/20/18 15:00 10/20/18 15:00 10/20/18 15:00 10/20/18 15:00 10/20/18 15:00 Intake and Output: 10/20/18 10/20/18 06:59 18:59 Intake Total 430 Output Total 600 Balance -170 - Medications Medications: Current Medications Albuterol/Ipratropium (Duoneb 3 Mg/0.5 Mg (3 Ml) Ud) 3 ml INH RQ4 [facility] Last Admin: 10/20/18 15:48 Dose: 3 ml Alprazolam (Xanax) 0.5 mg PO BID PRN PRN Reason: Anxiety Last Admin: 10/17/18 16:23 Dose: 0.5 mg Docusate Sodium (Colace) 200 mg PO HS [facility] Last Admin: 10/19/18 21:52 Dose: 200 mg Enoxaparin Sodium (Lovenox) 40 mg SC DAILY [facility] Last Admin: 10/20/18 09:19 Dose: 40 mg Escitalopram Oxalate (Lexapro) 10 mg PO DAILY [facility] Last Admin: 10/20/18 09:19 Dose: 10 mg Gabapentin (Neurontin) 300 mg PO BID [facility] Last Admin: 10/20/18 09:19 Dose: 300 mg Guaifenesin (Robitussin) 100 mg PO Q4H [facility] Last Admin: 10/20/18 13:02 Dose: Not Given Azithromycin 500 mg/ Sodium (Chloride) 250 mls @ 250 mls/hr IVPB DAILY [facility]; Protocol Last Admin: 10/20/18 09:26 Dose: 250 mls/hr Insulin Aspart (Novolog) 0 unit SC ACHS [facility]; Protocol Last Admin: 10/20/18 13:02 Dose: 8 u Methadone HCl (Methadose) 40 mg PO DAILY [facility] Methylprednisolone (Solu-Medrol) 40 mg IVP Q8 [facility] Montelukast Sodium (Singulair) 10 mg PO HS [facility] Last Admin: 10/19/18 21:51 Dose: 10 mg Pantoprazole Sodium (Protonix Ec Tab) 40 mg PO DAILY [facility] Last Admin: 10/20/18 09:18 Dose: 40 mg Trazodone HCl (Desyrel) 100 mg PO HS [facility] Last Admin: 10/19/18 21:52 Dose: 100 mg Zolpidem Tartrate (Ambien) 5 mg PO HS [facility] Last Admin: 10/19/18 21:52 Dose: 5 mg - Labs Labs: 10/16/18 09:05 10/16/18 09:05 Assessment and Plan (1) Hypercapnic respiratory failure Status: Acute (2) COPD exacerbation Status: Acute
[2018-10-21] MEDS: guaiFENesin 100 mg/5 ml Syrup UD PO SCH ×6 (00:23→21:15)
[2018-10-21] MEDS: Albuterol-Ipratrop 3 mg / 0.5 (3 ml) UD INH SCH ×5 (03:29→19:53)
[2018-10-21] MEDS: MethylPREDNISolone 40 mg Vial IVP SCH ×3 (05:45→21:16)
[2018-10-21] MEDS: (Novolog) Insulin Aspart, Recombinant 100 u/ml 10 ml vial SC SCH ×4 (08:28→22:00)
[2018-10-21] MEDS: Pantoprazole 40 mg EC Tab PO SCH (09:17)
[2018-10-21] MEDS: Enoxaparin 40 mg Syringe SC SCH (09:17)
[2018-10-21] MEDS: Azithromycin 500 MG in Sodium Chloride 0.9% 250 ML IVPB SCH (09:18)
[2018-10-21] MEDS ORDERED: Methadone 40 mg Tab PO SCH (10:00)
--- NOTE | 2018-10-21 11:53 | CP.PCM.PN ---
Subjective - Date & Time of Evaluation Date of Evaluation: 10/21/18 Time of Evaluation: 09:40 - Subjective Subjective: Patient seen and examined at bedside Patient is awake and responsive at bedside She states she is breathing better but is reporting a continuous cough Currently using the BiPAP in the evening or if it is needed She is afebrile Denies fever, chills, nausea, vomiting, chest pain, Physical Exam Gen: AAOx3, anxious Cardio: RRR, no murmur Pulm: Wheezing bilaterally Ab: soft non distended A/P COPD -continue Duonebs -Switch to p.o. prednisone and continue antibiotics -Continue BPAP Objective - Vital Signs/Intake and Output Vital Signs (last 24 hours): Temp Pulse Resp BP Pulse Ox 98.6 F 97 H 18 117/75 96 10/21/18 07:00 10/21/18 09:15 10/21/18 07:00 10/21/18 09:15 10/21/18 07:00 Intake and Output: 10/21/18 10/21/18 06:59 18:59 Intake Total 922 Output Total 400 Balance 522 - Medications Medications: Current Medications Albuterol/Ipratropium (Duoneb 3 Mg/0.5 Mg (3 Ml) Ud) 3 ml INH RQ4 [facility] Last Admin: 10/21/18 08:50 Dose: 3 ml Alprazolam (Xanax) 0.5 mg PO BID PRN PRN Reason: Anxiety Last Admin: 10/17/18 16:23 Dose: 0.5 mg Docusate Sodium (Colace) 200 mg PO HS [facility] Last Admin: 10/20/18 21:58 Dose: 200 mg Enoxaparin Sodium (Lovenox) 40 mg SC DAILY [facility] Last Admin: 10/21/18 09:17 Dose: 40 mg Escitalopram Oxalate (Lexapro) 10 mg PO DAILY [facility] Last Admin: 10/21/18 09:17 Dose: 10 mg Gabapentin (Neurontin) 300 mg PO BID [facility] Last Admin: 10/21/18 09:17 Dose: 300 mg Guaifenesin (Robitussin) 100 mg PO Q4H [facility] Last Admin: 10/21/18 09:17 Dose: 100 mg Azithromycin 500 mg/ Sodium (Chloride) 250 mls @ 250 mls/hr IVPB DAILY [facility]; Protocol Last Admin: 10/21/18 09:18 Dose: 250 mls/hr Insulin Aspart (Novolog) 0 unit SC ACHS [facility]; Protocol Last Admin: 10/21/18 08:28 Dose: 4 u Methadone HCl (Methadone) 60 mg PO DAILY [facility] Methylprednisolone (Solu-Medrol) 40 mg IVP Q8 [facility] Last Admin: 10/21/18 05:45 Dose: 40 mg Montelukast Sodium (Singulair) 10 mg PO HS [facility] Last Admin: 10/20/18 21:58 Dose: 10 mg Pantoprazole Sodium (Protonix Ec Tab) 40 mg PO DAILY [facility] Last Admin: 10/21/18 09:17 Dose: 40 mg Trazodone HCl (Desyrel) 100 mg PO HS [facility] Last Admin: 10/20/18 21:58 Dose: 100 mg Zolpidem Tartrate (Ambien) 5 mg PO HS [facility] Last Admin: 10/20/18 21:58 Dose: 5 mg - Labs Labs: 10/16/18 09:05 10/16/18 09:05 Assessment and Plan (1) Hypercapnic respiratory failure Status: Acute (2) COPD exacerbation Status: Acute
[2018-10-21 16:04] VITALS: RESP 20
--- NOTE | 2018-10-21 19:54 | CP.PCM.PN ---
Subjective - Date & Time of Evaluation Date of Evaluation: 10/21/18 Time of Evaluation: 10:15 - Subjective Subjective: clinically same Objective - Vital Signs/Intake and Output Vital Signs (last 24 hours): Temp Pulse Resp BP Pulse Ox 98 F 117 H 20 105/63 97 10/21/18 15:00 10/21/18 17:09 10/21/18 15:00 10/21/18 15:00 10/21/18 15:00 Intake and Output: 10/21/18 10/22/18 18:59 06:59 Intake Total 650 Balance 650 - Medications Medications: Current Medications Albuterol/Ipratropium (Duoneb 3 Mg/0.5 Mg (3 Ml) Ud) 3 ml INH RQ4 [facility] Last Admin: 10/21/18 19:53 Dose: 3 ml Alprazolam (Xanax) 0.5 mg PO BID PRN PRN Reason: Anxiety Last Admin: 10/17/18 16:23 Dose: 0.5 mg Docusate Sodium (Colace) 200 mg PO HS [facility] Last Admin: 10/20/18 21:58 Dose: 200 mg Escitalopram Oxalate (Lexapro) 10 mg PO DAILY [facility] Last Admin: 10/21/18 09:17 Dose: 10 mg Gabapentin (Neurontin) 300 mg PO BID [facility] Last Admin: 10/21/18 18:06 Dose: 300 mg Guaifenesin (Robitussin) 100 mg PO Q4H [facility] Last Admin: 10/21/18 18:05 Dose: 100 mg Azithromycin 500 mg/ Sodium (Chloride) 250 mls @ 250 mls/hr IVPB DAILY [facility]; Protocol Last Admin: 10/21/18 09:18 Dose: 250 mls/hr Insulin Aspart (Novolog) 0 unit SC ACHS [facility]; Protocol Last Admin: 10/21/18 18:06 Dose: 4 u Methadone HCl (Methadone) 60 mg PO DAILY [facility] Last Admin: 10/21/18 12:28 Dose: 60 mg Methylprednisolone (Solu-Medrol) 40 mg IVP Q8 [facility] Last Admin: 10/21/18 14:58 Dose: 40 mg Montelukast Sodium (Singulair) 10 mg PO HS [facility] Last Admin: 10/20/18 21:58 Dose: 10 mg Pantoprazole Sodium (Protonix Ec Tab) 40 mg PO DAILY [facility] Last Admin: 10/21/18 09:17 Dose: 40 mg Trazodone HCl (Desyrel) 100 mg PO HS [facility] Last Admin: 10/20/18 21:58 Dose: 100 mg Zolpidem Tartrate (Ambien) 5 mg PO HS [facility] Last Admin: 10/20/18 21:58 Dose: 5 mg - Labs Labs: 10/16/18 09:05 10/16/18 09:05
[2018-10-22] MEDS: guaiFENesin 100 mg/5 ml Syrup UD PO SCH ×6 (00:25→22:09)
[2018-10-22] MEDS: Albuterol-Ipratrop 3 mg / 0.5 (3 ml) UD INH SCH ×6 (04:00→23:35)
[2018-10-22] MEDS: MethylPREDNISolone 40 mg Vial IVP SCH ×2 (05:22→14:08)
[2018-10-22] MEDS: (Novolog) Insulin Aspart, Recombinant 100 u/ml 10 ml vial SC SCH ×4 (09:33→22:08)
[2018-10-22] MEDS: Azithromycin 500 MG in Sodium Chloride 0.9% 250 ML IVPB SCH (09:34)
[2018-10-22] MEDS: Pantoprazole 40 mg EC Tab PO SCH (09:34)
[2018-10-22 13:44] LABS: BASO # 0.1 K/uL (0.0-0.2); BASO % 0.5 % (0.0-2.0); HEMOGLOBIN 13.5 g/dL (11.0-16.0); LYMPH # 0.8 K/uL (1.0-4.3); LYMPH % 6.8 % (20.0-40.0); MEAN CELL VOLUME 95.2 fL (81.0-99.0); MEAN CORPUSCULAR HEMOGLOBIN 31.7 pg (27.0-31.0); MEAN CORPUSCULAR HGB CONC 33.3 g/dL (33.0-37.0); MEAN PLATELET VOLUME 8.7 fL (7.2-11.7); MONO # 0.6 K/uL (0.0-0.8); MONO % 5.1 % (0.0-10.0); NEUT # 10.7 K/uL (1.8-7.0); NEUT % 87.6 % (50.0-75.0); PLATELET COUNT 149 K/uL (130-400); RBC 4.27 Mil/uL (3.80-5.20); RED CELL DISTRIBUTION WIDTH 14.9 % (11.5-14.5); WHITE BLOOD COUNT 12.2 K/uL (4.8-10.8)
[2018-10-22 14:02] LABS: BLOOD UREA NITROGEN 26 mg/dL (7-17); CALCIUM 8.5 mg/dl (8.6-10.4); GFR NON-AFRICAN AMERICAN > 60
[2018-10-22 14:23] LABS: LYMPHOCYTE 4 % (20-40); MONOCYTE 6 % (0-10); NEUTROPHIL 90 % (50-75); PLATELET ESTIMATE NORMAL (NORMAL); TOTAL CELLS COUNTED 100
--- NOTE | 2018-10-22 14:24 | CP.PCM.PN ---
Subjective - Date & Time of Evaluation Date of Evaluation: 10/22/18 Time of Evaluation: 10:15 - Subjective Subjective: clinically same Objective - Vital Signs/Intake and Output Vital Signs (last 24 hours): Temp Pulse Resp BP Pulse Ox 98.4 F 63 20 119/71 94 L 10/22/18 08:38 10/22/18 08:38 10/22/18 08:38 10/22/18 08:38 10/22/18 08:38 Intake and Output: 10/22/18 10/22/18 06:59 18:59 Intake Total 120 Balance 120 - Medications Medications: Current Medications Albuterol/Ipratropium (Duoneb 3 Mg/0.5 Mg (3 Ml) Ud) 3 ml INH RQ4 [facility] Last Admin: 10/22/18 11:29 Dose: 3 ml Alprazolam (Xanax) 0.5 mg PO BID PRN PRN Reason: Anxiety Last Admin: 10/17/18 16:23 Dose: 0.5 mg Docusate Sodium (Colace) 200 mg PO HS [facility] Last Admin: 10/21/18 21:15 Dose: 200 mg Escitalopram Oxalate (Lexapro) 10 mg PO DAILY [facility] Last Admin: 10/22/18 09:32 Dose: 10 mg Gabapentin (Neurontin) 300 mg PO BID [facility] Last Admin: 10/22/18 09:33 Dose: 300 mg Guaifenesin (Robitussin) 100 mg PO Q4H [facility] Last Admin: 10/22/18 12:24 Dose: 100 mg Azithromycin 500 mg/ Sodium (Chloride) 250 mls @ 250 mls/hr IVPB DAILY [facility]; Protocol Last Admin: 10/22/18 09:34 Dose: 250 mls/hr Insulin Aspart (Novolog) 0 unit SC ACHS [facility]; Protocol Last Admin: 10/22/18 12:23 Dose: 10 u Methadone HCl (Methadone) 60 mg PO DAILY [facility] Last Admin: 10/22/18 09:33 Dose: 60 mg Methylprednisolone (Solu-Medrol) 40 mg IVP Q8 [facility] Last Admin: 10/22/18 14:08 Dose: 40 mg Montelukast Sodium (Singulair) 10 mg PO HS [facility] Last Admin: 10/21/18 21:15 Dose: 10 mg Pantoprazole Sodium (Protonix Ec Tab) 40 mg PO DAILY [facility] Last Admin: 10/22/18 09:34 Dose: 40 mg Trazodone HCl (Desyrel) 100 mg PO HS [facility] Last Admin: 10/21/18 21:20 Dose: 100 mg Zolpidem Tartrate (Ambien) 5 mg PO HS [facility] Last Admin: 10/21/18 21:15 Dose: 5 mg - Labs Labs: 10/22/18 13:37 10/22/18 13:37 - Constitutional Appears: Well - Head Exam Head Exam: ATRAUMATIC, NORMAL INSPECTION, NORMOCEPHALIC - Eye Exam Eye Exam: EOMI, Normal appearance, PERRL Pupil Exam: NORMAL ACCOMODATION, PERRL - ENT Exam ENT Exam: Mucous Membranes Moist, Normal Exam - Neck Exam Neck Exam: Full ROM, Normal Inspection. absent: Lymphadenopathy - Respiratory Exam Respiratory Exam: Decreased Breath Sounds - Cardiovascular Exam Cardiovascular Exam: REGULAR RHYTHM, +S1, +S2 - GI/Abdominal Exam GI & Abdominal Exam: Soft, Diminished Bowel Sounds - Rectal Exam Rectal Exam: Deferred
[2018-10-22 14:32] LABS: ANISOCYTOSIS SLIGHT
[2018-10-22 14:34] LABS: HYPOCHROMIC SLIGHT; POLYCHROMIC SLIGHT
--- NOTE | 2018-10-22 19:37 | CP.PCM.PN ---
Subjective - Date & Time of Evaluation Date of Evaluation: 10/22/18 Time of Evaluation: 18:20 - Subjective Subjective: Patient seen and examined Sitting comfortably in no distress Still has cough Less shortness of breath Afebrile Objective - Vital Signs/Intake and Output Vital Signs (last 24 hours): Temp Pulse Resp BP Pulse Ox 98.4 F 63 20 119/71 94 L 10/22/18 08:38 10/22/18 08:38 10/22/18 08:38 10/22/18 08:38 10/22/18 08:38 - Medications Medications: Current Medications Albuterol/Ipratropium (Duoneb 3 Mg/0.5 Mg (3 Ml) Ud) 3 ml INH RQ4 [facility] Last Admin: 10/22/18 11:29 Dose: 3 ml Alprazolam (Xanax) 0.5 mg PO BID PRN PRN Reason: Anxiety Last Admin: 10/22/18 18:11 Dose: 0.5 mg Docusate Sodium (Colace) 200 mg PO HS [facility] Last Admin: 10/21/18 21:15 Dose: 200 mg Escitalopram Oxalate (Lexapro) 10 mg PO DAILY [facility] Last Admin: 10/22/18 09:32 Dose: 10 mg Gabapentin (Neurontin) 300 mg PO BID [facility] Last Admin: 10/22/18 17:02 Dose: 300 mg Guaifenesin (Robitussin) 100 mg PO Q4H [facility] Last Admin: 10/22/18 17:03 Dose: 100 mg Azithromycin 500 mg/ Sodium (Chloride) 250 mls @ 250 mls/hr IVPB DAILY [facility]; Protocol Last Admin: 10/22/18 09:34 Dose: 250 mls/hr Insulin Aspart (Novolog) 0 unit SC ACHS [facility]; Protocol Last Admin: 10/22/18 17:02 Dose: 10 u Methadone HCl (Methadone) 60 mg PO DAILY [facility] Last Admin: 10/22/18 09:33 Dose: 60 mg Methylprednisolone (Solu-Medrol) 40 mg IVP Q8 [facility] Last Admin: 10/22/18 14:08 Dose: 40 mg Montelukast Sodium (Singulair) 10 mg PO HS [facility] Last Admin: 10/21/18 21:15 Dose: 10 mg Pantoprazole Sodium (Protonix Ec Tab) 40 mg PO DAILY [facility] Last Admin: 10/22/18 09:34 Dose: 40 mg Trazodone HCl (Desyrel) 100 mg PO HS [facility] Last Admin: 10/21/18 21:20 Dose: 100 mg Zolpidem Tartrate (Ambien) 5 mg PO HS [facility] Last Admin: 10/21/18 21:15 Dose: 5 mg - Labs Labs: 10/22/18 13:37 10/22/18 13:37 - Head Exam Head Exam: ATRAUMATIC, NORMOCEPHALIC - ENT Exam ENT Exam: Mucous Membranes Moist - Neck Exam Neck Exam: Normal Inspection - Respiratory Exam Respiratory Exam: Rhonchi, Wheezes - Cardiovascular Exam Cardiovascular Exam: REGULAR RHYTHM Assessment and Plan (1) Hypercapnic respiratory failure Assessment & Plan: Switch to prednisone BiPAP at night or as needed Continue nebulizer treatment Continue antibiotics Status: Acute (2) COPD exacerbation Status: Acute
[2018-10-23] MEDS: guaiFENesin 100 mg/5 ml Syrup UD PO SCH ×6 (00:53→20:59)
[2018-10-23] MEDS: Albuterol-Ipratrop 3 mg / 0.5 (3 ml) UD INH SCH ×5 (03:16→21:02)
[2018-10-23] MEDS: (Novolog) Insulin Aspart, Recombinant 100 u/ml 10 ml vial SC SCH ×4 (07:46→21:32)
[2018-10-23] MEDS: Pantoprazole 40 mg EC Tab PO SCH (09:57)
[2018-10-23] MEDS: Azithromycin 500 MG in Sodium Chloride 0.9% 250 ML IVPB SCH (10:07)
--- NOTE | 2018-10-23 15:26 | CP.PCM.PN ---
Subjective - Date & Time of Evaluation Date of Evaluation: 10/23/18 Time of Evaluation: 11:15 - Subjective Subjective: clinically same Objective - Vital Signs/Intake and Output Vital Signs (last 24 hours): Temp Pulse Resp BP Pulse Ox 98.7 F 102 H 20 115/75 95 10/23/18 09:26 10/23/18 09:26 10/23/18 09:26 10/23/18 09:26 10/23/18 09:26 Intake and Output: 10/23/18 10/23/18 06:59 18:59 Intake Total 240 Balance 240 - Medications Medications: Current Medications Albuterol/Ipratropium (Duoneb 3 Mg/0.5 Mg (3 Ml) Ud) 3 ml INH RQ4 [facility] Last Admin: 10/23/18 12:53 Dose: 3 ml Alprazolam (Xanax) 0.5 mg PO BID PRN PRN Reason: Anxiety Last Admin: 10/22/18 18:11 Dose: 0.5 mg Docusate Sodium (Colace) 200 mg PO HS [facility] Last Admin: 10/22/18 22:10 Dose: 200 mg Escitalopram Oxalate (Lexapro) 10 mg PO DAILY [facility] Last Admin: 10/23/18 11:00 Dose: 10 mg Gabapentin (Neurontin) 300 mg PO BID [facility] Last Admin: 10/23/18 09:58 Dose: 300 mg Guaifenesin (Robitussin) 100 mg PO Q4H [facility] Last Admin: 10/23/18 13:45 Dose: 100 mg Azithromycin 500 mg/ Sodium (Chloride) 250 mls @ 250 mls/hr IVPB DAILY [facility]; Protocol Last Admin: 10/23/18 10:07 Dose: 250 mls/hr Insulin Aspart (Novolog) 0 unit SC ACHS [facility]; Protocol Last Admin: 10/23/18 12:35 Dose: 6 u Methadone HCl (Methadone) 60 mg PO DAILY [facility] Last Admin: 10/23/18 09:57 Dose: 60 mg Montelukast Sodium (Singulair) 10 mg PO HS [facility] Last Admin: 10/22/18 22:10 Dose: 10 mg Pantoprazole Sodium (Protonix Ec Tab) 40 mg PO DAILY [facility] Last Admin: 10/23/18 09:57 Dose: 40 mg Prednisone (Prednisone Tab) 40 mg PO DAILY [facility] Last Admin: 10/23/18 09:58 Dose: 40 mg Trazodone HCl (Desyrel) 100 mg PO HS [facility] Last Admin: 10/22/18 22:10 Dose: 100 mg Zolpidem Tartrate (Ambien) 5 mg PO HS [facility] Last Admin: 10/22/18 22:14 Dose: 5 mg - Labs Labs: 10/22/18 13:37 10/22/18 13:37
[2018-10-24] MEDS: guaiFENesin 100 mg/5 ml Syrup UD PO SCH ×6 (00:53→21:39)
[2018-10-24] MEDS: Albuterol-Ipratrop 3 mg / 0.5 (3 ml) UD INH SCH ×6 (01:00→22:00)
[2018-10-24] MEDS: (Novolog) Insulin Aspart, Recombinant 100 u/ml 10 ml vial SC SCH ×4 (08:28→21:58)
[2018-10-24] MEDS: Pantoprazole 40 mg EC Tab PO SCH (09:51)
[2018-10-24] MEDS: Azithromycin 500 MG in Sodium Chloride 0.9% 250 ML IVPB SCH (09:51)
--- NOTE | 2018-10-24 17:50 | CP.PCM.PN ---
Subjective - Date & Time of Evaluation Date of Evaluation: 10/24/18 Time of Evaluation: 10:00 - Subjective Subjective: Patient seen and examined at bedside Patient is awake and responsive at bedside Currently using the BiPAP in the evening or if it is needed Safe for discharge from a pulmonary standpoint She is afebrile Denies fever, chills, nausea, vomiting, chest pain, Physical Exam Gen: AAOx3, anxious Cardio: RRR, no murmur Pulm: Wheezing bilaterally Ab: soft non distended A/P COPD -Continue BiPAP at night or as needed -Discharge and have outpatient follow up Objective - Vital Signs/Intake and Output Vital Signs (last 24 hours): Temp Pulse Resp BP Pulse Ox 97.6 F 88 20 115/67 98 10/24/18 15:53 10/24/18 15:53 10/24/18 15:53 10/24/18 15:53 10/24/18 15:53 Intake and Output: 10/24/18 10/24/18 06:59 18:59 Intake Total 120 Balance 120 - Medications Medications: Current Medications Albuterol/Ipratropium (Duoneb 3 Mg/0.5 Mg (3 Ml) Ud) 3 ml INH RQ4 [facility] Last Admin: 10/24/18 11:03 Dose: Not Given Alprazolam (Xanax) 0.5 mg PO BID PRN PRN Reason: Anxiety Last Admin: 10/23/18 19:06 Dose: 0.5 mg Docusate Sodium (Colace) 200 mg PO HS [facility] Last Admin: 10/23/18 21:24 Dose: 200 mg Escitalopram Oxalate (Lexapro) 10 mg PO DAILY [facility] Last Admin: 10/24/18 09:51 Dose: 10 mg Gabapentin (Neurontin) 300 mg PO BID [facility] Last Admin: 10/24/18 09:51 Dose: 300 mg Guaifenesin (Robitussin) 100 mg PO Q4H [facility] Last Admin: 10/24/18 12:46 Dose: 100 mg Azithromycin 500 mg/ Sodium (Chloride) 250 mls @ 250 mls/hr IVPB DAILY [facility]; Protocol Last Admin: 10/24/18 09:51 Dose: 250 mls/hr Insulin Aspart (Novolog) 0 unit SC ACHS [facility]; Protocol Last Admin: 10/24/18 12:24 Dose: 2 u Methadone HCl (Methadone) 60 mg PO DAILY [facility] Last Admin: 10/24/18 09:50 Dose: 60 mg Montelukast Sodium (Singulair) 10 mg PO [facility] Last Admin: 10/23/18 21:24 Dose: 10 mg Pantoprazole Sodium (Protonix Ec Tab) 40 mg PO DAILY [facility] Last Admin: 10/24/18 09:51 Dose: 40 mg Prednisone (Prednisone Tab) 40 mg PO DAILY [facility] Last Admin: 10/24/18 09:51 Dose: 40 mg Trazodone HCl (Desyrel) 100 mg PO [facility] Last Admin: 10/23/18 21:24 Dose: 100 mg Zolpidem Tartrate (Ambien) 5 mg PO [facility] Last Admin: 10/23/18 21:24 Dose: 5 mg - Labs Labs: 10/22/18 13:37 10/22/18 13:37 Assessment and Plan (1) Hypercapnic respiratory failure Status: Acute (2) COPD exacerbation Status: Acute
--- NOTE | 2018-10-24 18:48 | CP.PCM.PN ---
Subjective - Date & Time of Evaluation Date of Evaluation: 10/24/18 Time of Evaluation: 10:15 - Subjective Subjective: clinically same Objective - Vital Signs/Intake and Output Vital Signs (last 24 hours): Temp Pulse Resp BP Pulse Ox 97.6 F 88 20 115/67 98 10/24/18 15:53 10/24/18 15:53 10/24/18 15:53 10/24/18 15:53 10/24/18 15:53 Intake and Output: 10/24/18 10/24/18 06:59 18:59 Intake Total 120 Balance 120 - Medications Medications: Current Medications Albuterol/Ipratropium (Duoneb 3 Mg/0.5 Mg (3 Ml) Ud) 3 ml INH RQ4 [facility] Last Admin: 10/24/18 11:03 Dose: Not Given Alprazolam (Xanax) 0.5 mg PO BID PRN PRN Reason: Anxiety Last Admin: 10/23/18 19:06 Dose: 0.5 mg Docusate Sodium (Colace) 200 mg PO HS [facility] Last Admin: 10/23/18 21:24 Dose: 200 mg Escitalopram Oxalate (Lexapro) 10 mg PO DAILY [facility] Last Admin: 10/24/18 09:51 Dose: 10 mg Gabapentin (Neurontin) 300 mg PO BID [facility] Last Admin: 10/24/18 18:12 Dose: 300 mg Guaifenesin (Robitussin) 100 mg PO Q4H [facility] Last Admin: 10/24/18 18:12 Dose: 100 mg Azithromycin 500 mg/ Sodium (Chloride) 250 mls @ 250 mls/hr IVPB DAILY [facility]; Protocol Last Admin: 10/24/18 09:51 Dose: 250 mls/hr Insulin Aspart (Novolog) 0 unit SC ACHS [facility]; Protocol Last Admin: 10/24/18 18:12 Dose: 10 u Methadone HCl (Methadone) 60 mg PO DAILY [facility] Last Admin: 10/24/18 09:50 Dose: 60 mg Montelukast Sodium (Singulair) 10 mg PO HS [facility] Last Admin: 10/23/18 21:24 Dose: 10 mg Pantoprazole Sodium (Protonix Ec Tab) 40 mg PO DAILY [facility] Last Admin: 10/24/18 09:51 Dose: 40 mg Prednisone (Prednisone Tab) 40 mg PO DAILY [facility] Last Admin: 10/24/18 09:51 Dose: 40 mg Trazodone HCl (Desyrel) 100 mg PO HS [facility] Last Admin: 10/23/18 21:24 Dose: 100 mg Zolpidem Tartrate (Ambien) 5 mg PO HS [facility] Last Admin: 10/23/18 21:24 Dose: 5 mg - Labs Labs: 10/22/18 13:37 10/22/18 13:37
[2018-10-25] MEDS: guaiFENesin 100 mg/5 ml Syrup UD PO SCH ×4 (00:49→13:23)
[2018-10-25] MEDS: Albuterol-Ipratrop 3 mg / 0.5 (3 ml) UD INH SCH ×4 (04:00→12:13)
[2018-10-25] MEDS: (Novolog) Insulin Aspart, Recombinant 100 u/ml 10 ml vial SC SCH ×2 (07:43→12:27)
[2018-10-25 08:44] VITALS: BP 100/68; PULSE 74; TEMP 98.3; O2SAT 95
[2018-10-25] MEDS: Pantoprazole 40 mg EC Tab PO SCH (09:38)
[2018-10-25] MEDS: Azithromycin 500 MG in Sodium Chloride 0.9% 250 ML IVPB SCH (09:51)
--- NOTE | 2018-10-25 14:42 | CP.PCM.PN ---
Subjective - Date & Time of Evaluation Date of Evaluation: 10/25/18 Time of Evaluation: 11:15 - Subjective Subjective: clinically same Objective - Vital Signs/Intake and Output Vital Signs (last 24 hours): Temp Pulse Resp BP Pulse Ox 98.3 F 74 20 100/68 95 10/25/18 08:42 10/25/18 08:42 10/25/18 08:42 10/25/18 08:42 10/25/18 08:42 - Medications Medications: Current Medications Albuterol/Ipratropium (Duoneb 3 Mg/0.5 Mg (3 Ml) Ud) 3 ml INH RQ4 [facility] Last Admin: 10/25/18 12:13 Dose: Not Given Alprazolam (Xanax) 0.5 mg PO BID PRN PRN Reason: Anxiety Last Admin: 10/24/18 21:39 Dose: 0.5 mg Docusate Sodium (Colace) 200 mg PO HS [facility] Last Admin: 10/24/18 21:39 Dose: 200 mg Escitalopram Oxalate (Lexapro) 10 mg PO DAILY [facility] Last Admin: 10/25/18 10:29 Dose: 10 mg Gabapentin (Neurontin) 300 mg PO BID [facility] Last Admin: 10/25/18 09:37 Dose: 300 mg Guaifenesin (Robitussin) 100 mg PO Q4H [facility] Last Admin: 10/25/18 13:23 Dose: Not Given Azithromycin 500 mg/ Sodium (Chloride) 250 mls @ 250 mls/hr IVPB DAILY [facility]; Protocol Last Admin: 10/25/18 09:51 Dose: 250 mls/hr Insulin Aspart (Novolog) 0 unit SC ACHS [facility]; Protocol Last Admin: 10/25/18 12:27 Dose: 4 u Methadone HCl (Methadone) 60 mg PO DAILY [facility] Last Admin: 10/25/18 09:37 Dose: 60 mg Montelukast Sodium (Singulair) 10 mg PO [facility] Last Admin: 10/24/18 21:39 Dose: 10 mg Pantoprazole Sodium (Protonix Ec Tab) 40 mg PO DAILY [facility] Last Admin: 10/25/18 09:38 Dose: 40 mg Prednisone (Prednisone Tab) 40 mg PO DAILY [facility] Last Admin: 10/25/18 09:37 Dose: 40 mg Trazodone HCl (Desyrel) 100 mg PO [facility] Last Admin: 10/24/18 21:39 Dose: 100 mg Zolpidem Tartrate (Ambien) 5 mg PO HS [facility] Last Admin: 10/24/18 21:39 Dose: 5 mg - Labs Labs: 10/22/18 13:37 10/22/18 13:37
== END 2018-10-25 15:10 | disposition home or self-care (01) | DRG 88 ==
LOC: C.ER 08:26 → C.9E 12:08 → C.6T 12:32
PROVIDERS: ADMIT Internal Medicine Nephrology; ATTEND Internal Medicine Nephrology
DX: J44.1 Chronic obstructive pulmonary disease with (acute) exacerbation (principal); J43.9 Emphysema, unspecified; F11.20 Opioid dependence, uncomplicated; I10 Essential (primary) hypertension; H54.7 Unspecified visual loss; E11.9 Type 2 diabetes mellitus without complications; Z90.01 Acquired absence of eye; Z99.81 Dependence on supplemental oxygen; Z87.891 Personal history of nicotine dependence

== ENCOUNTER 2018-11-10 08:56 | Inpatient (IN) | payer OTHER ==
[2018-11-10 08:56] VITALS: BMI 21.7
[2018-11-10] MEDS ORDERED: Albuterol-Ipratrop 3 mg / 0.5 (3 ml) UD INH STA (09:21)
[2018-11-10] MEDS ORDERED: Albuterol 0.083% Inhal Sol (2.5 mg/3 mL) UD IH STA ×3 (09:21→11:51)
--- NOTE | 2018-11-10 09:31 | C.PDOC ---
History Of Present Illness Patient BIBA from home for evaluation of SOB that began last night, associated with mild nonproductive cough and pleuritric sharp chest pain. Patient denies fever, abdominal pain, nausea/vomiting, diarrhea, worsening leg edema. PMhx of COPD, anxiety/depression, DM II, HTN, anemia. PMHx: Dr. Kavya Rico Time Seen by Provider: 11/10/18 09:02 Chief Complaint (Nursing): Shortness Of Breath History Per: Patient, EMS History/Exam Limitations: no limitations Onset/Duration Of Symptoms: Days (2) Current Respiratory Medications: See Home Med List Severity: Moderate Past Medical History Reviewed: Historical Data, Nursing Documentation, Vital Signs Vital Signs: Last Vital Signs Temp 97.8 F 11/10/18 09:05 Pulse 117 H 11/10/18 09:05 Resp 11 L 11/10/18 09:05 BP 122/81 11/10/18 09:05 Pulse Ox 94 L 11/10/18 09:05 - Medical History PMH: Anemia, Anxiety, Asthma, Bronchitis, Cardia Arrhythmia, COPD, Depression, Diabetes, Emphysema, HTN Surgical History: Back Surgery - [facility] Procedures APPLICATION OF SPLINT (12/18/03) ASSISTANCE WITH RESPIRATORY VENTILATION, 24-96 HRS, CPAP (02/01/17) ASSISTANCE WITH RESPIRATORY VENTILATION, <24 HRS, CPAP (02/27/18) ASSISTANCE WITH RESPIRATORY VENTILATION, >96 HRS, CPAP (01/23/17) DETOXIFICATION SERVICES FOR SUBSTANCE ABUSE TREATMENT (10/31/17) INDIV PSYCHOTHERAPY FOR SUBSTANCE ABUSE TREATMENT, SUPPORT (10/31/17) INDIV PSYCHOTHERAPY FOR SUBSTANCE ABUSE, PSYCHOEDUCATION (10/31/17) INDIVIDUAL PSYCHOTHERAPY, SUPPORTIVE (04/29/17) INJECT/INFUSE NEC (03/17/05) INSERTION OF ENDOTRACHEAL AIRWAY INTO TRACHEA, VIA OPENING (02/01/17) INSERTION OF INFUSION DEV INTO SUP VENA CAVA, PERC APPROACH (02/01/17) INTRODUCE OF OTH THERAP SUBST INTO RESP TRACT, VIA OPENING (01/23/17) INTRODUCE OF OXAZOLIDINONES INTO PERIPH VEIN, PERC APPROACH (02/01/17) MAGNETIC RESONANCE IMAGING OF SPINAL CANAL (07/19/98) RESPIRATORY VENTILATION, LESS THAN 24 CONSECUTIVE HOURS (02/01/17) TETANUS TOXOID ADMINIST (04/24/05) ULTRASONOGRAPHY OF LEFT UPPER EXTREMITY VEINS, GUIDANCE (02/01/17) Family History: States: No Known Family Hx - Social History Hx Alcohol Use: No Hx Substance Use: Yes (IVDA +HEROIN. ) - Immunization History Hx Tetanus Toxoid Vaccination: No Hx Influenza Vaccination: No Hx Pneumococcal Vaccination: Yes Review Of Systems Constitutional: Negative for: Fever, Chills Cardiovascular: Positive for: Chest Pain (pleuritic ). Negative for: Palpitations Respiratory: Positive for: Cough, Shortness of Breath, Wheezing Gastrointestinal: Negative for: Nausea, Vomiting, Abdominal Pain, Diarrhea Genitourinary: Negative for: Dysuria, Hematuria Skin: Negative for: Rash Neurological: Negative for: Headache, Dizziness Physical Exam - Physical Exam Appears: Non-toxic, Other (intermittent audible wheezing ) Skin: Normal Color, Warm, Dry Head: Normacephalic Oral Mucosa: Moist Cardiovascular: Rhythm Regular (tachycardic ) Respiratory: No Accessory Muscle Use, No Rales, No Rhonchi, Wheezing (audible), Other (decreased air entry B/L ) Gastrointestinal/Abdominal: Normal Exam, Bowel Sounds, Soft, No Tenderness Extremity: Pedal Edema (+1 pitting edema B/L LEs), No Calf Tenderness Pulses: Left Dorsalis Pedis: Normal, Right Dorsalis Pedis: Normal Neurological/Psych: Oriented x3 ED Course And Treatment - Laboratory Results Result Diagrams: 11/18/18 11:25 11/18/18 11:25 ECG: Interpreted By Me, Viewed By Me (sinus tachycardia 110 bpm, normal axis, no acute ST/T wave changes) ECG Interpretation: Abnormal (tachycardic ) O2 Sat by Pulse Oximetry: 94 (RA) Pulse Ox Interpretation: Normal (COPD) - Radiology CXR: Interpreted by Me, Viewed By Me CXR Interpretation: Yes: No Acute Disease. No: Infiltrates Progress Note: Blood work, EKG, CXR ordered and reviewed. Patient given IV solumedrol and multiple rounds of nebulizer treatments. Reevaluation Time: 11:40 Reassessment Condition: Improved (Patient reassessed, is only mildly improved, continues to have expiratory wheezing B/L. Will need obs for copd exacerbation.) - Physician Consult Information Physician Contacted: Augustine Rico Outcome Of Conversation: Discussed patient with PMD, agrees with obs telemetry for dyspnea, COPD exacerbation. Critical Care Time - Critical Care Note Total Time (in mins): 45 Documented critical care: time excludes all time spent performing seperately billable procedures. Disposition - Disposition Disposition: HOSPITALIZED Disposition Time: 11:50 Condition: STABLE - Clinical Impression Clinical Impression: COPD exacerbation, Dyspnea Decision To Admit - Pt Status Changed To: Hospital Disposition Of: Observation - . Bed Request Type: Telemetry Admitting Physician: Augustine Rico Patient Diagnosis: Dyspnea, COPD exacerbation
[2018-11-10] MEDS ORDERED: Albuterol-Ipratrop 3 mg / 0.5 (3 ml) UD ONE ×2 (09:40→14:28)
[2018-11-10] MEDS ORDERED: Albuterol 0.083% Inhal Sol (2.5 mg/3 mL) UD ONE (09:40)
[2018-11-10 10:00] LABS: BASO % 0.5 % (0.0-2.0); EOS # 0.1 K/uL (0.0-0.7); EOS % 1.1 % (0.0-4.0); HEMOGLOBIN 14.3 g/dL (11.0-16.0); LYMPH # 2.3 K/uL (1.0-4.3); MEAN CORPUSCULAR HEMOGLOBIN 32.6 pg (27.0-31.0); MEAN CORPUSCULAR HGB CONC 33.4 g/dL (33.0-37.0); MEAN PLATELET VOLUME 7.8 fL (7.2-11.7); MONO # 0.7 K/uL (0.0-0.8); MONO % 7.8 % (0.0-10.0); NEUT # 6.3 K/uL (1.8-7.0); NEUT % 66.6 % (50.0-75.0); RBC 4.38 Mil/uL (3.80-5.20); RED CELL DISTRIBUTION WIDTH 15.9 % (11.5-14.5); WHITE BLOOD COUNT 9.4 K/uL (4.8-10.8)
[2018-11-10 10:12] LABS: MEAN CELL VOLUME 97.5 fL (81.0-99.0)
[2018-11-10 11:23] LABS: ALB/GLOB RATIO 1.5 (1.0-2.1); ALBUMIN 3.6 g/dL (3.5-5.0); ALT/SGPT 97 U/L (9-52); AST/SGOT 62 U/L (14-36); BLOOD UREA NITROGEN 18 mg/dL (7-17); CALCIUM 8.8 mg/dl (8.6-10.4); GFR NON-AFRICAN AMERICAN > 60
[2018-11-10 11:32] LABS: B-TYPE NATRIURETIC PEPTIDE 187 pg/mL (0-900); CK-MB 0.93 ng/mL (0.0-3.38)
[2018-11-10] MEDS ORDERED: Albuterol-Ipratrop 3 mg / 0.5 (3 ml) UD IH PRN (15:10)
--- NOTE | 2018-11-10 15:28 | RAD ---
Date of service: 11/10/2018 PROCEDURE: CHEST RADIOGRAPH, 1 VIEW HISTORY: SOB COMPARISON: 10/14/2018 FINDINGS: LUNGS: No consolidation. There may be some minimal left perihilar fibrosis present. A some extent this is appreciated on the prior study. No worrisome changes noted. PLEURA: No pneumothorax or pleural fluid seen. CARDIOVASCULAR: No aortic atherosclerotic calcification present. Normal. OSSEOUS STRUCTURES: Bilateral shoulder arthrosis. And scoliosis noted. VISUALIZED UPPER ABDOMEN: Normal. OTHER FINDINGS: None. IMPRESSION: No interval acute cardiopulmonary pathology appreciated.
[2018-11-10] MEDS: Enoxaparin 40 mg Syringe SC SCH (16:10)
[2018-11-10] MEDS: Moxifloxacin IV 400mg/250ml NS 400 MG/250 ML BAG IVPB SCH (16:10)
[2018-11-10] MEDS: MethylPREDNISolone 40 mg Vial IVP SCH ×2 (16:10→21:35)
[2018-11-10] MEDS: guaiFENesin 100 mg/5 ml Syrup UD PO SCH ×3 (16:10→23:21)
--- NOTE | 2018-11-10 17:59 | CP.PCM.HP ---
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 ) - SURGICAL HISTORY Hx Coronary Stent: No - ANESTHESIA Hx Anesthesia: Yes Hx Anesthesia Reactions: No Hx Malignant Hyperthermia: No Meds Allergies/Adverse Reactions: Allergies Allergy/AdvReac Type Severity Reaction Status Date / Time Penicillins Allergy ANAPHYLAXIS Verified 11/10/18 09:09 Physical Exam - Constitutional Appears: Well - Head Exam Head Exam: ATRAUMATIC, NORMAL INSPECTION, NORMOCEPHALIC - Eye Exam Eye Exam: EOMI, Normal appearance, PERRL Pupil Exam: NORMAL ACCOMODATION, PERRL - ENT Exam ENT Exam: Mucous Membranes Moist, Normal Exam - Neck Exam Neck exam: Positive for: Normal Inspection - Respiratory Exam Respiratory Exam: Decreased Breath Sounds - Cardiovascular Exam Cardiovascular Exam: REGULAR RHYTHM, +S1, +S2 - GI/Abdominal Exam GI & Abdominal Exam: Diminished Bowel Sounds, Soft - Rectal Exam Rectal Exam: Deferred Results - Vital Signs Recent Vital Signs: Last Vital Signs Temp 98.5 F 11/10/18 17:10 Pulse 95 H 11/10/18 17:10 Resp 22 11/10/18 17:10 BP 131/82 11/10/18 17:10 Pulse Ox 97 11/10/18 17:10 - Labs Result Diagrams: 11/10/18 09:50 11/10/18 10:59 Labs: Laboratory Results - last 24 hr 11/10/18 11/10/18 09:50 10:59 WBC 9.4 RBC 4.38 Hgb 14.3 Hct 42.8 MCV 97.5 D MCH 32.6 H MCHC 33.4 RDW 15.9 H Plt Count 199 MPV 7.8 Neut % (Auto) 66.6 Lymph % (Auto) 24.0 [place] % (Auto) 7.8 Eos % (Auto) 1.1 Baso % (Auto) 0.5 Neut # (Auto) 6.3 Lymph # (Auto) 2.3 [place] # (Auto) 0.7 Eos # (Auto) 0.1 Baso # (Auto) 0.0 Sodium 139 Potassium 3.5 L Chloride 91 L Carbon Dioxide 47 H* D Anion Gap 3 L BUN 18 H Creatinine 0.5 L Est GFR ( Amer) > 60 Est GFR (Non-Af Amer) > 60 Random Glucose 215 H D Calcium 8.8 Total Bilirubin 1.2 AST 62 H D ALT 97 H D Alkaline Phosphatase 55 CK-MB (Mass) 0.93 Troponin I < 0.0120 NT-Pro-B Natriuret Pep 187 Total Protein 6.0 L Albumin 3.6 Globulin 2.4 Albumin/Globulin Ratio 1.5
[2018-11-10] MEDS: Potassium Chloride 10 mEq ER Tab PO SCH (19:13)
[2018-11-10] MEDS: Albuterol 0.083% Inhal Sol (2.5 mg/3 mL) UD IH SCH ×2 (19:34→22:00)
[2018-11-10] MEDS ORDERED: Home Med 1 UNIT (Melatonin [Melatonin] 5 MG) PO SCH (22:00)
[2018-11-11] MEDS: guaiFENesin 100 mg/5 ml Syrup UD PO SCH ×6 (03:11→23:45)
[2018-11-11] MEDS: MethylPREDNISolone 40 mg Vial IVP SCH ×3 (06:16→21:06)
[2018-11-11] MEDS: Albuterol 0.083% Inhal Sol (2.5 mg/3 mL) UD IH SCH ×8 (07:35→23:51)
[2018-11-11] MEDS ORDERED: Fluticasone-Vilanterol 200/25mcg Diskus INH SCH (08:00)
[2018-11-11 08:49] LABS: ALB/GLOB RATIO 1.5 (1.0-2.1); ALBUMIN 3.2 g/dL (3.5-5.0); ALT/SGPT 78 U/L (9-52); AST/SGOT 41 U/L (14-36); BLOOD UREA NITROGEN 16 mg/dL (7-17); CALCIUM 8.6 mg/dl (8.6-10.4); GFR NON-AFRICAN AMERICAN > 60
[2018-11-11] MEDS: Potassium Chloride 10 mEq ER Tab PO SCH (09:00)
--- NOTE | 2018-11-11 09:23 | CP.PCM.CON ---
History of Present Illness - History of Present Illness History of Present Illness: Reason for consultation: Shortness of breath and pleuritic chest pain 57-year-old female with history of COPD, substance abuse, hypertension, anemia presented to emergency room complaining of shortness of breath, nonproductive cough and sharp pleuritic chest pain. Denies fever chills, denies abdominal pain, denies nausea vomiting. Patient was recently admitted and treated for hypercapnic respiratory failure. Patient is awake and responsive and in no respiratory distress PMHx: COPD, HTN, DM, PSHx: back surgery Meds: as per EMR Social: denies alcohol, is a smoker, reports IV heroin abuse Allergies: Penicillins Review of Systems - Review of Systems All systems: reviewed and no additional remarkable complaints except (Shortness of breath, nonproductive cough and pleuritic chest pain) 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 ) - SURGICAL HISTORY Hx Coronary Stent: No - ANESTHESIA Hx Anesthesia: Yes Hx Anesthesia Reactions: No Hx Malignant Hyperthermia: No Meds Allergies/Adverse Reactions: Allergies Allergy/AdvReac Type Severity Reaction Status Date / Time Penicillins Allergy ANAPHYLAXIS Verified 11/10/18 09:09 - Medications Medications: Current Medications Albuterol Sulfate (Albuterol 0.083% Inhal Maureen (2.5 Mg/3 Ml) Ud) 2.5 mg IH Q2 [facility] Last Admin: 11/10/18 22:00 Dose: 2.5 mg Albuterol/Ipratropium (Duoneb 3 Mg/0.5 Mg (3 Ml) Ud) 3 ml IH TID PRN PRN Reason: Wheezing Docusate Sodium (Colace) 100 mg PO HS [facility] Last Admin: 11/10/18 21:36 Dose: 100 mg Enoxaparin Sodium (Lovenox) 40 mg SC DAILY [facility] Last Admin: 11/10/18 16:10 Dose: 40 mg Escitalopram Oxalate (Lexapro) 10 mg PO DAILY [facility] Fluticasone/Vilanterol (Breo Ellipta 200-25 Mcg Inh) 1 puff INH RQD [facility] Gabapentin (Neurontin) 300 mg PO BID [facility] Last Admin: 11/10/18 19:13 Dose: 300 mg Guaifenesin (Robitussin) 100 mg PO Q4H [facility] Last Admin: 11/11/18 06:19 Dose: 100 mg Home Med (Melatonin [Melatonin]) 5 mg PO HS [facility] Home Med (Umeclidinium [place] [Incruse Ellipta]) 62.5 mcg IH DAILY [facility] Hydroxyzine HCl (Atarax) 25 mg PO BID PRN PRN Reason: Anxiety Moxifloxacin HCl (Avelox Iv 400mg/250ml Ns) 400 mg in 250 mls @ 167 mls/hr IVPB Q24H [facility]; Protocol Last Admin: 11/10/18 16:10 Dose: 167 mls/hr Methadone HCl (Methadone) 60 mg PO DAILY [facility] Last Admin: 11/10/18 16:10 Dose: 60 mg Methylprednisolone (Solu-Medrol) 40 mg IVP Q8 [facility] Last Admin: 11/11/18 06:16 Dose: 40 mg Montelukast Sodium (Singulair) 10 mg PO HS [facility] Last Admin: 11/10/18 21:35 Dose: 10 mg Potassium Chloride (Klor-Con 10) 40 meq PO BRK [facility] Last Admin: 11/10/18 19:13 Dose: 40 meq Trazodone HCl (Desyrel) 100 mg PO HS [facility] Last Admin: 11/10/18 21:37 Dose: Not Given Zolpidem Tartrate (Ambien) 5 mg PO [facility] Last Admin: 11/10/18 21:36 Dose: Not Given Physical Exam - Head Exam Head Exam: ATRAUMATIC, NORMOCEPHALIC - Eye Exam Eye Exam: Normal appearance - ENT Exam ENT Exam: Mucous Membranes Moist - Neck Exam Neck exam: Positive for: Normal Inspection - Respiratory Exam Respiratory Exam: Decreased Breath Sounds - Cardiovascular Exam Cardiovascular Exam: REGULAR RHYTHM - Extremities Exam Extremities exam: Positive for: normal inspection Results - Vital Signs Recent Vital Signs: Last Vital Signs Temp 98.1 F 11/11/18 07:00 Pulse 66 11/11/18 07:00 Resp 20 11/11/18 07:00 BP 134/86 11/11/18 07:00 Pulse Ox 94 L 11/11/18 07:00 - Labs Result Diagrams: 11/10/18 09:50 11/11/18 06:42 Labs: Laboratory Results - last 24 hr 11/10/18 11/10/18 11/11/18 09:50 10:59 06:42 WBC 9.4 RBC 4.38 Hgb 14.3 Hct 42.8 MCV 97.5 D MCH 32.6 H MCHC 33.4 RDW 15.9 H Plt Count 199 MPV 7.8 Neut % (Auto) 66.6 Lymph % (Auto) 24.0 Wilkin % (Auto) 7.8 Eos % (Auto) 1.1 Baso % (Auto) 0.5 Neut # (Auto) 6.3 Lymph # (Auto) 2.3 Wilkin # (Auto) 0.7 Eos # (Auto) 0.1 Baso # (Auto) 0.0 Sodium 139 140 Potassium 3.5 L 4.1 Chloride 91 L 96 L Carbon Dioxide 47 H* D 39 H Anion Gap 3 L 9 L BUN 18 H 16 Creatinine 0.5 L 0.4 L Est GFR ( Amer) > 60 > 60 Est GFR (Non-Af Amer) > 60 > 60 Random Glucose 215 H D 205 H Calcium 8.8 8.6 Total Bilirubin 1.2 0.9 AST 62 H D 41 H D ALT 97 H D 78 H Alkaline Phosphatase 55 50 CK-MB (Mass) 0.93 Troponin I < 0.0120 NT-Pro-B Natriuret Pep 187 Total Protein 6.0 L 5.5 L Albumin 3.6 3.2 L Globulin 2.4 2.2 Albumin/Globulin Ratio 1.5 1.5 Assessment & Plan (1) COPD exacerbation Assessment and Plan: Continue nebulizer treatment and IV steroids Elevated bicarb secondary to pCO2 retention compensation Analgesics for pleuritic chest pain Follow-up ABG Status: Acute (2) Chest pain Status: Acute Priority: Medium
[2018-11-11] MEDS: Enoxaparin 40 mg Syringe SC SCH (09:25)
[2018-11-11] MEDS ORDERED: Home Med 1 UNIT (Umeclidinium Bromide [Incruse Ellipta] 62.5 MCG) IH SCH (10:00)
--- NOTE | 2018-11-11 13:37 | CARD ---
APPROVED REPORT Date of service: 11/10/2018 EKG Measurement Heart [id number] <Conclusion> Sinus tachycardia Otherwise normal ECG
[2018-11-11] MEDS: Moxifloxacin IV 400mg/250ml NS 400 MG/250 ML BAG IVPB SCH (14:32)
[2018-11-11] MEDS ORDERED: Albuterol-Ipratrop 3 mg / 0.5 (3 ml) UD IH PRN (18:00)
--- NOTE | 2018-11-11 19:45 | CP.PCM.PN ---
Subjective - Date & Time of Evaluation Date of Evaluation: 11/11/18 Time of Evaluation: 12:00 - Subjective Subjective: clinically same Objective - Vital Signs/Intake and Output Vital Signs (last 24 hours): Temp Pulse Resp BP Pulse Ox 97.9 F 76 18 122/69 95 11/11/18 15:00 11/11/18 15:00 11/11/18 17:03 11/11/18 15:00 11/11/18 15:00 - Medications Medications: Current Medications Albuterol Sulfate (Albuterol 0.083% Inhal Maureen (2.5 Mg/3 Ml) Ud) 2.5 mg IH RQ2 [facility] Albuterol/Ipratropium (Duoneb 3 Mg/0.5 Mg (3 Ml) Ud) 3 ml IH RTID PRN PRN Reason: Wheezing Docusate Sodium (Colace) 100 mg PO HS [facility] Last Admin: 11/10/18 21:36 Dose: 100 mg Enoxaparin Sodium (Lovenox) 40 mg SC DAILY [facility] Last Admin: 11/11/18 09:25 Dose: 40 mg Escitalopram Oxalate (Lexapro) 10 mg PO DAILY [facility] Last Admin: 11/11/18 09:40 Dose: 10 mg Fluticasone/Vilanterol (Breo Ellipta 200-25 Mcg Inh) 1 puff INH RQD [facility] Gabapentin (Neurontin) 300 mg PO BID [facility] Last Admin: 11/11/18 18:06 Dose: 300 mg Guaifenesin (Robitussin) 100 mg PO Q4H [facility] Last Admin: 11/11/18 14:42 Dose: 100 mg Hydroxyzine HCl (Atarax) 25 mg PO BID PRN PRN Reason: Anxiety Moxifloxacin HCl (Avelox Iv 400mg/250ml Ns) 400 mg in 250 mls @ 167 mls/hr IVPB Q24H [facility]; Protocol Last Admin: 11/11/18 14:32 Dose: 167 mls/hr Methadone HCl (Methadone) 60 mg PO DAILY [facility] Last Admin: 11/11/18 09:33 Dose: 60 mg Methylprednisolone (Solu-Medrol) 40 mg IVP Q8 [facility] Last Admin: 11/11/18 13:05 Dose: 40 mg Montelukast Sodium (Singulair) 10 mg PO HS [facility] Last Admin: 11/10/18 21:35 Dose: 10 mg Potassium Chloride (Klor-Con 10) 40 meq PO BRK [facility] Last Admin: 11/11/18 09:00 Dose: 40 meq Trazodone HCl (Desyrel) 100 mg PO HS [facility] Last Admin: 11/10/18 21:37 Dose: Not Given Zolpidem Tartrate (Ambien) 5 mg PO [facility] Last Admin: 11/10/18 21:36 Dose: Not Given - Labs Labs: 11/10/18 09:50 11/11/18 06:42 - Constitutional Appears: Well - Head Exam Head Exam: ATRAUMATIC, NORMAL INSPECTION, NORMOCEPHALIC - Eye Exam Eye Exam: EOMI, Normal appearance, PERRL Pupil Exam: NORMAL ACCOMODATION, PERRL - ENT Exam ENT Exam: Mucous Membranes Moist, Normal Exam - Neck Exam Neck Exam: Full ROM, Normal Inspection. absent: Lymphadenopathy - Respiratory Exam Respiratory Exam: Decreased Breath Sounds - Cardiovascular Exam Cardiovascular Exam: REGULAR RHYTHM, +S1, +S2 - GI/Abdominal Exam GI & Abdominal Exam: Soft, Diminished Bowel Sounds - Rectal Exam Rectal Exam: Deferred
[2018-11-12] MEDS: Albuterol 0.083% Inhal Sol (2.5 mg/3 mL) UD IH SCH ×9 (02:05→19:59)
[2018-11-12] MEDS: MethylPREDNISolone 40 mg Vial IVP SCH ×3 (05:41→21:11)
[2018-11-12] MEDS: guaiFENesin 100 mg/5 ml Syrup UD PO SCH ×5 (05:50→22:40)
[2018-11-12] MEDS: Potassium Chloride 10 mEq ER Tab PO SCH (10:02)
[2018-11-12] MEDS: Enoxaparin 40 mg Syringe SC SCH (10:05)
--- NOTE | 2018-11-12 13:18 | CP.PCM.CON ---
History of Present Illness - History of Present Illness History of Present Illness: 57 y/o on methadone prior Drug use COPD:asthma chronic recurrent Patient BIBA from home for evaluation of SOB that began last night, associated with mild nonproductive cough and pleuritric sharp chest pain. Patient denies fever, abdominal pain, nausea/vomiting, diarrhea, worsening leg edema. PMhx of COPD, anxiety/depression, DM II, HTN, anemia. Now feels fine : We were called to evaluate a concerning rhythm strip suspected to be VFIB: I evaluated this strip and feel this is artifact Review of Systems - Review of Systems All systems: reviewed and no additional remarkable complaints except 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 ) - SURGICAL HISTORY Hx Coronary Stent: No - ANESTHESIA Hx Anesthesia: Yes Hx Anesthesia Reactions: No Hx Malignant Hyperthermia: No Meds Allergies/Adverse Reactions: Allergies Allergy/AdvReac Type Severity Reaction Status Date / Time Penicillins Allergy ANAPHYLAXIS Verified 11/10/18 09:09 - Medications Medications: Current Medications Albuterol Sulfate (Albuterol 0.083% Inhal Maureen (2.5 Mg/3 Ml) Ud) 2.5 mg IH RQ2 [facility] Last Admin: 11/12/18 11:32 Dose: 2.5 mg Albuterol/Ipratropium (Duoneb 3 Mg/0.5 Mg (3 Ml) Ud) 3 ml IH RTID PRN PRN Reason: Wheezing Docusate Sodium (Colace) 100 mg PO HS [facility] Last Admin: 11/11/18 21:06 Dose: 100 mg Enoxaparin Sodium (Lovenox) 40 mg SC DAILY [facility] Last Admin: 11/12/18 10:05 Dose: 40 mg Escitalopram Oxalate (Lexapro) 10 mg PO DAILY [facility] Last Admin: 11/12/18 10:03 Dose: 10 mg Fluticasone/Vilanterol (Breo Ellipta 200-25 Mcg Inh) 1 puff INH RQD [facility] Gabapentin (Neurontin) 300 mg PO BID [facility] Last Admin: 11/12/18 10:04 Dose: 300 mg Guaifenesin (Robitussin) 100 mg PO Q4H [facility] Last Admin: 11/12/18 05:50 Dose: 100 mg Hydroxyzine HCl (Atarax) 25 mg PO BID PRN PRN Reason: Anxiety Moxifloxacin HCl (Avelox Iv 400mg/250ml Ns) 400 mg in 250 mls @ 167 mls/hr IVPB Q24H [facility]; Protocol Last Admin: 11/11/18 14:32 Dose: 167 mls/hr Methadone HCl (Methadone) 60 mg PO DAILY [facility] Last Admin: 11/12/18 10:04 Dose: 60 mg Methylprednisolone (Solu-Medrol) 40 mg IVP Q8 [facility] Last Admin: 11/12/18 05:41 Dose: 40 mg Montelukast Sodium (Singulair) 10 mg PO HS [facility] Last Admin: 11/11/18 21:06 Dose: 10 mg Potassium Chloride (Klor-Con 10) 40 meq PO BRK [facility] Last Admin: 11/12/18 10:02 Dose: 40 meq Trazodone HCl (Desyrel) 100 mg PO HS [facility] Last Admin: 11/11/18 21:06 Dose: 100 mg Zolpidem Tartrate (Ambien) 5 mg PO [facility] Last Admin: 11/11/18 21:34 Dose: 5 mg Physical Exam - Constitutional Appears: No Acute Distress - Head Exam Head Exam: ATRAUMATIC, NORMAL INSPECTION, NORMOCEPHALIC - Eye Exam Eye Exam: absent: Normal appearance - ENT Exam ENT Exam: Mucous Membranes Moist, Normal Oropharynx - Neck Exam Neck exam: Positive for: Full Rom, Normal Inspection. Negative for: Tenderness - Respiratory Exam Respiratory Exam: Clear to Auscultation Bilateral, NORMAL BREATHING PATTERN. absent: Rhonchi, Wheezes - Cardiovascular Exam Cardiovascular Exam: REGULAR RHYTHM, +S1, +S2. absent: +S4, Systolic Murmur - Extremities Exam Extremities exam: Positive for: normal inspection, pedal pulses present. Negative for: calf tenderness, pedal edema - Back Exam Back exam: NORMAL INSPECTION - Neurological Exam Neurological exam: Alert, Oriented x3 - Psychiatric Exam Psychiatric exam: Normal Affect, Normal Mood - Skin Skin Exam: Normal Color, Warm Results - Vital Signs Recent Vital Signs: Last Vital Signs Temp 98.2 F 11/12/18 07:00 Pulse 61 11/12/18 07:56 Resp 18 11/12/18 07:00 BP 125/80 11/12/18 07:00 Pulse Ox 95 11/12/18 07:56 - Labs Result Diagrams: 11/10/18 09:50 11/11/18 06:42 Assessment & Plan - Assessment and Plan (Free Text) Assessment: Patient with recurrent SOB/COPD SBP controlled DM: uncontrooled Artifact on TELE unlikely VFIB/VT: EKG images directly seen by me: NSR, no acute ischemic changes, normal QTC She is clinically not in ADHF or volume overload creat and K+ WNL H/H normal Plan: check serum Mg order echo to evaluate cardiac structure and function monitor in TELE
[2018-11-12] MEDS: Moxifloxacin IV 400mg/250ml NS 400 MG/250 ML BAG IVPB SCH (14:16)
--- NOTE | 2018-11-12 18:40 | CP.PCM.PN ---
Subjective - Date & Time of Evaluation Date of Evaluation: 11/12/18 Time of Evaluation: 11:00 - Subjective Subjective: clinically same Objective - Vital Signs/Intake and Output Vital Signs (last 24 hours): Temp Pulse Resp BP Pulse Ox 97.9 F 81 20 110/72 95 11/12/18 15:15 11/12/18 16:00 11/12/18 15:15 11/12/18 15:15 11/12/18 15:15 - Medications Medications: Current Medications Albuterol Sulfate (Albuterol 0.083% Inhal Maureen (2.5 Mg/3 Ml) Ud) 2.5 mg IH RQ2 [facility] Last Admin: 11/12/18 11:32 Dose: 2.5 mg Albuterol/Ipratropium (Duoneb 3 Mg/0.5 Mg (3 Ml) Ud) 3 ml IH RTID PRN PRN Reason: Wheezing Alprazolam (Xanax) 0.5 mg PO TID PRN PRN Reason: Anxiety Docusate Sodium (Colace) 100 mg PO HS [facility] Last Admin: 11/11/18 21:06 Dose: 100 mg Enoxaparin Sodium (Lovenox) 40 mg SC DAILY [facility] Last Admin: 11/12/18 10:05 Dose: 40 mg Escitalopram Oxalate (Lexapro) 10 mg PO DAILY [facility] Last Admin: 11/12/18 10:03 Dose: 10 mg Fluticasone/Vilanterol (Breo Ellipta 200-25 Mcg Inh) 1 puff INH RQD [facility] Gabapentin (Neurontin) 300 mg PO BID [facility] Last Admin: 11/12/18 18:01 Dose: 300 mg Guaifenesin (Robitussin) 100 mg PO Q4H [facility] Last Admin: 11/12/18 18:01 Dose: 100 mg Hydroxyzine HCl (Atarax) 25 mg PO BID PRN PRN Reason: Anxiety Moxifloxacin HCl (Avelox Iv 400mg/250ml Ns) 400 mg in 250 mls @ 167 mls/hr IVPB Q24H [facility]; Protocol Last Admin: 11/12/18 14:16 Dose: 167 mls/hr Methadone HCl (Methadone) 60 mg PO DAILY [facility] Last Admin: 11/12/18 10:04 Dose: 60 mg Methylprednisolone (Solu-Medrol) 40 mg IVP Q8 [facility] Last Admin: 11/12/18 14:16 Dose: 40 mg Montelukast Sodium (Singulair) 10 mg PO HS [facility] Last Admin: 11/11/18 21:06 Dose: 10 mg Potassium Chloride (Klor-Con 10) 40 meq PO BRK [facility] Last Admin: 11/12/18 10:02 Dose: 40 meq Trazodone HCl (Desyrel) 100 mg PO HS [facility] Last Admin: 11/11/18 21:06 Dose: 100 mg Zolpidem Tartrate (Ambien) 5 mg PO HS [facility] Last Admin: 11/11/18 21:34 Dose: 5 mg - Labs Labs: 11/10/18 09:50 11/11/18 06:42 - Constitutional Appears: Well - Head Exam Head Exam: ATRAUMATIC, NORMAL INSPECTION, NORMOCEPHALIC - Eye Exam Eye Exam: EOMI, Normal appearance, PERRL Pupil Exam: NORMAL ACCOMODATION, PERRL - ENT Exam ENT Exam: Mucous Membranes Moist, Normal Exam - Neck Exam Neck Exam: Full ROM, Normal Inspection. absent: Lymphadenopathy - Respiratory Exam Respiratory Exam: Decreased Breath Sounds - Cardiovascular Exam Cardiovascular Exam: REGULAR RHYTHM, +S1, +S2 - GI/Abdominal Exam GI & Abdominal Exam: Soft, Diminished Bowel Sounds - Rectal Exam Rectal Exam: Deferred
--- NOTE | 2018-11-12 19:52 | CP.PCM.PN ---
Subjective - Date & Time of Evaluation Date of Evaluation: 11/12/18 Time of Evaluation: 17:20 - Subjective Subjective: Patient seen and examined Found to be short of breath but refusing BiPAP Awake and responsive and able to speak in full sentences Objective - Vital Signs/Intake and Output Vital Signs (last 24 hours): Temp Pulse Resp BP Pulse Ox 97.9 F 81 20 110/72 95 11/12/18 15:15 11/12/18 16:00 11/12/18 15:15 11/12/18 15:15 11/12/18 15:15 - Medications Medications: Current Medications Albuterol Sulfate (Albuterol 0.083% Inhal Maureen (2.5 Mg/3 Ml) Ud) 2.5 mg IH RQ2 [facility] Last Admin: 11/12/18 18:00 Dose: Not Given Albuterol/Ipratropium (Duoneb 3 Mg/0.5 Mg (3 Ml) Ud) 3 ml IH RTID PRN PRN Reason: Wheezing Alprazolam (Xanax) 0.5 mg PO TID PRN PRN Reason: Anxiety Last Admin: 11/12/18 19:15 Dose: 0.5 mg Docusate Sodium (Colace) 200 mg PO HS [facility] Enoxaparin Sodium (Lovenox) 40 mg SC DAILY [facility] Last Admin: 11/12/18 10:05 Dose: 40 mg Escitalopram Oxalate (Lexapro) 10 mg PO DAILY [facility] Last Admin: 11/12/18 10:03 Dose: 10 mg Fluticasone/Vilanterol (Breo Ellipta 200-25 Mcg Inh) 1 puff INH RQD [facility] Gabapentin (Neurontin) 300 mg PO BID [facility] Last Admin: 11/12/18 18:01 Dose: 300 mg Guaifenesin (Robitussin) 100 mg PO Q4H [facility] Last Admin: 11/12/18 18:01 Dose: 100 mg Hydroxyzine HCl (Atarax) 25 mg PO BID PRN PRN Reason: Anxiety Moxifloxacin HCl (Avelox Iv 400mg/250ml Ns) 400 mg in 250 mls @ 167 mls/hr IVPB Q24H [facility]; Protocol Last Admin: 11/12/18 14:16 Dose: 167 mls/hr Methadone HCl (Methadone) 60 mg PO DAILY [facility] Last Admin: 11/12/18 10:04 Dose: 60 mg Methylprednisolone (Solu-Medrol) 40 mg IVP Q8 [facility] Last Admin: 11/12/18 14:16 Dose: 40 mg Montelukast Sodium (Singulair) 10 mg PO HS [facility] Last Admin: 11/11/18 21:06 Dose: 10 mg Potassium Chloride (Klor-Con 10) 40 meq PO BRK [facility] Last Admin: 11/12/18 10:02 Dose: 40 meq Trazodone HCl (Desyrel) 100 mg PO HS [facility] Last Admin: 11/11/18 21:06 Dose: 100 mg Zolpidem Tartrate (Ambien) 5 mg PO HS [facility] Last Admin: 11/11/18 21:34 Dose: 5 mg - Labs Labs: 11/10/18 09:50 11/11/18 06:42 - Head Exam Head Exam: ATRAUMATIC, NORMOCEPHALIC - ENT Exam ENT Exam: Mucous Membranes Moist - Neck Exam Neck Exam: Normal Inspection - Respiratory Exam Respiratory Exam: Decreased Breath Sounds - Cardiovascular Exam Cardiovascular Exam: REGULAR RHYTHM - GI/Abdominal Exam GI & Abdominal Exam: Soft, Normal Bowel Sounds - Extremities Exam Extremities Exam: Normal Inspection - Neurological Exam Neurological Exam: Alert Assessment and Plan (1) COPD exacerbation Assessment & Plan: Continue nebulizer treatment and steroids High flow oxygen Patient refusing BiPAP Monitor ABG Status: Acute (2) Chest pain Status: Acute
[2018-11-13] MEDS: Albuterol 0.083% Inhal Sol (2.5 mg/3 mL) UD IH SCH ×8 (00:50→20:02)
[2018-11-13] MEDS: MethylPREDNISolone 40 mg Vial IVP SCH ×3 (05:28→21:56)
[2018-11-13] MEDS: guaiFENesin 100 mg/5 ml Syrup UD PO SCH ×6 (05:28→23:39)
[2018-11-13] MEDS: Potassium Chloride 10 mEq ER Tab PO SCH (08:56)
[2018-11-13] MEDS: Enoxaparin 40 mg Syringe SC SCH (08:59)
[2018-11-13] MEDS: Moxifloxacin IV 400mg/250ml NS 400 MG/250 ML BAG IVPB SCH (15:35)
--- NOTE | 2018-11-13 15:56 | CP.PCM.PN ---
Subjective - Date & Time of Evaluation Date of Evaluation: 11/13/18 Time of Evaluation: 10:45 - Subjective Subjective: clinically same Objective - Vital Signs/Intake and Output Vital Signs (last 24 hours): Temp Pulse Resp BP Pulse Ox 97.9 F 79 20 130/80 96 11/13/18 08:17 11/13/18 12:29 11/13/18 12:29 11/13/18 08:17 11/13/18 11:17 Intake and Output: 11/13/18 11/13/18 06:59 18:59 Intake Total 320 400 Balance 320 400 - Medications Medications: Current Medications Albuterol Sulfate (Albuterol 0.083% Inhal Maureen (2.5 Mg/3 Ml) Ud) 2.5 mg IH RQ2 [facility] Last Admin: 11/13/18 12:41 Dose: 2.5 mg Albuterol/Ipratropium (Duoneb 3 Mg/0.5 Mg (3 Ml) Ud) 3 ml IH RTID PRN PRN Reason: Wheezing Alprazolam (Xanax) 0.5 mg PO TID PRN PRN Reason: Anxiety Last Admin: 11/12/18 19:15 Dose: 0.5 mg Docusate Sodium (Colace) 200 mg PO HS [facility] Last Admin: 11/12/18 21:11 Dose: 200 mg Enoxaparin Sodium (Lovenox) 40 mg SC DAILY [facility] Last Admin: 11/13/18 08:59 Dose: 40 mg Escitalopram Oxalate (Lexapro) 10 mg PO DAILY [facility] Last Admin: 11/13/18 09:00 Dose: 10 mg Fluticasone/Vilanterol (Breo Ellipta 200-25 Mcg Inh) 1 puff INH RQD [facility] Gabapentin (Neurontin) 300 mg PO BID [facility] Last Admin: 11/13/18 09:00 Dose: 300 mg Guaifenesin (Robitussin) 100 mg PO Q4H [facility] Last Admin: 11/13/18 12:45 Dose: 100 mg Hydroxyzine HCl (Atarax) 25 mg PO BID PRN PRN Reason: Anxiety Moxifloxacin HCl (Avelox Iv 400mg/250ml Ns) 400 mg in 250 mls @ 167 mls/hr IVPB Q24H [facility]; Protocol Last Admin: 11/13/18 15:35 Dose: 167 mls/hr Methadone HCl (Methadone) 60 mg PO DAILY [facility] Last Admin: 11/13/18 08:59 Dose: 60 mg Methylprednisolone (Solu-Medrol) 40 mg IVP Q8 [facility] Last Admin: 11/13/18 13:15 Dose: 40 mg Montelukast Sodium (Singulair) 10 mg PO HS [facility] Last Admin: 11/12/18 21:11 Dose: 10 mg Potassium Chloride (Klor-Con 10) 40 meq PO BRK [facility] Last Admin: 11/13/18 08:56 Dose: 40 meq Trazodone HCl (Desyrel) 100 mg PO HS [facility] Last Admin: 11/12/18 21:15 Dose: 100 mg Zolpidem Tartrate (Ambien) 5 mg PO [facility] Last Admin: 11/12/18 22:40 Dose: Not Given - Labs Labs: 11/10/18 09:50 11/11/18 06:42 - Constitutional Appears: Well - Head Exam Head Exam: ATRAUMATIC, NORMAL INSPECTION, NORMOCEPHALIC - Eye Exam Eye Exam: EOMI, Normal appearance, PERRL Pupil Exam: NORMAL ACCOMODATION, PERRL - ENT Exam ENT Exam: Mucous Membranes Moist, Normal Exam - Neck Exam Neck Exam: Full ROM, Normal Inspection. absent: Lymphadenopathy - Respiratory Exam Respiratory Exam: Decreased Breath Sounds - Cardiovascular Exam Cardiovascular Exam: REGULAR RHYTHM, +S1, +S2 - GI/Abdominal Exam GI & Abdominal Exam: Soft, Diminished Bowel Sounds - Rectal Exam Rectal Exam: Deferred
[2018-11-14] MEDS: Albuterol 0.083% Inhal Sol (2.5 mg/3 mL) UD IH SCH ×10 (01:37→22:21)
[2018-11-14] MEDS: guaiFENesin 100 mg/5 ml Syrup UD PO SCH ×6 (05:19→23:56)
[2018-11-14] MEDS: MethylPREDNISolone 40 mg Vial IVP SCH ×3 (05:19→21:12)
[2018-11-14] MEDS: Potassium Chloride 10 mEq ER Tab PO SCH (08:00)
[2018-11-14] MEDS: Enoxaparin 40 mg Syringe SC SCH (10:49)
[2018-11-14] MEDS: Moxifloxacin IV 400mg/250ml NS 400 MG/250 ML BAG IVPB SCH (14:22)
--- NOTE | 2018-11-14 15:41 | CP.PCM.PN ---
Subjective - Date & Time of Evaluation Date of Evaluation: 11/14/18 Time of Evaluation: 15:39 - Subjective Subjective: No cardiac CP or ADHF Afebrile clinically same Objective - Vital Signs/Intake and Output Vital Signs (last 24 hours): Temp Pulse Resp BP Pulse Ox 98.6 F 60 20 107/74 97 11/14/18 07:00 11/14/18 08:10 11/14/18 10:10 11/14/18 07:00 11/14/18 10:10 Intake and Output: 11/14/18 11/14/18 06:59 18:59 Intake Total 570 500 Balance 570 500 - Medications Medications: Current Medications Albuterol Sulfate (Albuterol 0.083% Inhal Maureen (2.5 Mg/3 Ml) Ud) 2.5 mg IH RQ2 [facility] Last Admin: 11/14/18 14:03 Dose: 2.5 mg Albuterol/Ipratropium (Duoneb 3 Mg/0.5 Mg (3 Ml) Ud) 3 ml IH RTID PRN PRN Reason: Wheezing Alprazolam (Xanax) 0.5 mg PO TID PRN PRN Reason: Anxiety Last Admin: 11/13/18 20:29 Dose: 0.5 mg Docusate Sodium (Colace) 200 mg PO HS [facility] Last Admin: 11/13/18 21:56 Dose: 200 mg Enoxaparin Sodium (Lovenox) 40 mg SC DAILY [facility] Last Admin: 11/14/18 10:49 Dose: 40 mg Escitalopram Oxalate (Lexapro) 10 mg PO DAILY [facility] Last Admin: 11/14/18 10:56 Dose: 10 mg Fluticasone/Vilanterol (Breo Ellipta 200-25 Mcg Inh) 1 puff INH RQD [facility] Gabapentin (Neurontin) 300 mg PO BID [facility] Last Admin: 11/14/18 10:48 Dose: 300 mg Guaifenesin (Robitussin) 100 mg PO Q4H [facility] Last Admin: 11/14/18 11:30 Dose: 100 mg Hydroxyzine HCl (Atarax) 25 mg PO BID PRN PRN Reason: Anxiety Moxifloxacin HCl (Avelox Iv 400mg/250ml Ns) 400 mg in 250 mls @ 167 mls/hr IVPB Q24H [facility]; Protocol Last Admin: 11/14/18 14:22 Dose: 167 mls/hr Methadone HCl (Methadone) 60 mg PO DAILY [facility] Last Admin: 11/14/18 10:48 Dose: 60 mg Methylprednisolone (Solu-Medrol) 40 mg IVP Q8 [facility] Last Admin: 11/14/18 13:04 Dose: 40 mg Montelukast Sodium (Singulair) 10 mg PO HS [facility] Last Admin: 11/13/18 21:56 Dose: 10 mg Potassium Chloride (Klor-Con 10) 40 meq PO BRK [facility] Last Admin: 11/14/18 08:00 Dose: 40 meq Trazodone HCl (Desyrel) 100 mg PO HS [facility] Last Admin: 11/13/18 21:56 Dose: 100 mg Zolpidem Tartrate (Ambien) 5 mg PO [facility] Last Admin: 11/13/18 22:54 Dose: Not Given - Labs Labs: 11/10/18 09:50 11/11/18 06:42 - Constitutional Appears: No Acute Distress - Head Exam Head Exam: ATRAUMATIC, NORMAL INSPECTION, NORMOCEPHALIC - Eye Exam Eye Exam: absent: Scleral icterus - ENT Exam ENT Exam: Mucous Membranes Moist - Neck Exam Neck Exam: Full ROM. absent: Thyromegaly - Respiratory Exam Respiratory Exam: Rhonchi, Wheezes. absent: Respiratory Distress - Cardiovascular Exam Cardiovascular Exam: REGULAR RHYTHM, +S1, +S2. absent: JVD, Murmur - GI/Abdominal Exam GI & Abdominal Exam: Soft. absent: Tenderness - Extremities Exam Extremities Exam: absent: Calf Tenderness, Pedal Edema - Neurological Exam Neurological Exam: Alert, Awake, Oriented x3 - Psychiatric Exam Psychiatric exam: Normal Affect, Normal Mood Assessment and Plan - Assessment and Plan (Free Text) Plan: Patient with recurrent SOB/COPD SBP controlled DM: uncontrooled Artifact on TELE unlikely VFIB/VT: EKG images directly seen by me: NSR, no acute ischemic changes, normal QTC She is clinically not in ADHF or volume overload creat and K+ WNL H/H normal Plan: check serum Mg was normal echo to evaluate cardiac structure and function: images directly viewed by me: Normal LVEF, mild LVH, no sig valve disease, normal PASP and RV function. Diastolic dysfunction. ok to d/c tele Continue to RX URI/bronchitis/copd SUgars uncontrolled No additional cardiac w/u planned will sign off.
--- NOTE | 2018-11-14 17:45 | CP.PCM.PN ---
Subjective - Date & Time of Evaluation Date of Evaluation: 11/14/18 Time of Evaluation: 09:20 - Subjective Subjective: Patient seen and examined Appears to be improving clinically Still complaining of cough Alert, Awake, No acute distress Denies fever, chest pain, SOB, hemoptysis Afebrile Taper Steroids F/u Echo F/u ABG Physical Exam Oxygen Saturation 98% NC General: NAD Cardio: S1. S2, No murmurs, rubs, gallops Resp: Decreased breath sounds Abd: Soft, non-tender, No rebound, rigidity, guarding A/P 1) COPD Exacerbation -Continue nebulizer treatment -Taper Steroids -Continue Oxygen -Patient refusing BiPAP -F/u ABG 2) Chest Pain -Acute -F/u Echo Objective - Vital Signs/Intake and Output Vital Signs (last 24 hours): Temp Pulse Resp BP Pulse Ox 98.6 F 60 20 107/74 97 11/14/18 07:00 11/14/18 08:10 11/14/18 10:10 11/14/18 07:00 11/14/18 10:10 Intake and Output: 11/14/18 11/14/18 06:59 18:59 Intake Total 570 500 Balance 570 500 - Medications Medications: Current Medications Albuterol Sulfate (Albuterol 0.083% Inhal Maureen (2.5 Mg/3 Ml) Ud) 2.5 mg IH RQ2 [facility] Last Admin: 11/14/18 16:00 Dose: 2.5 mg Albuterol/Ipratropium (Duoneb 3 Mg/0.5 Mg (3 Ml) Ud) 3 ml IH RTID PRN PRN Reason: Wheezing Alprazolam (Xanax) 0.5 mg PO TID PRN PRN Reason: Anxiety Last Admin: 11/13/18 20:29 Dose: 0.5 mg Docusate Sodium (Colace) 200 mg PO HS [facility] Last Admin: 11/13/18 21:56 Dose: 200 mg Enoxaparin Sodium (Lovenox) 40 mg SC DAILY [facility] Last Admin: 11/14/18 10:49 Dose: 40 mg Escitalopram Oxalate (Lexapro) 10 mg PO DAILY [facility] Last Admin: 11/14/18 10:56 Dose: 10 mg Fluticasone/Vilanterol (Breo Ellipta 200-25 Mcg Inh) 1 puff INH RQD [facility] Gabapentin (Neurontin) 300 mg PO BID [facility] Last Admin: 11/14/18 17:18 Dose: 300 mg Guaifenesin (Robitussin) 100 mg PO Q4H [facility] Last Admin: 11/14/18 15:00 Dose: Not Given Hydroxyzine HCl (Atarax) 25 mg PO BID PRN PRN Reason: Anxiety Moxifloxacin HCl (Avelox Iv 400mg/250ml Ns) 400 mg in 250 mls @ 167 mls/hr IVPB Q24H [facility]; Protocol Last Admin: 11/14/18 14:22 Dose: 167 mls/hr Methadone HCl (Methadone) 60 mg PO DAILY [facility] Last Admin: 11/14/18 10:48 Dose: 60 mg Methylprednisolone (Solu-Medrol) 40 mg IVP Q8 [facility] Last Admin: 11/14/18 13:04 Dose: 40 mg Montelukast Sodium (Singulair) 10 mg PO HS [facility] Last Admin: 11/13/18 21:56 Dose: 10 mg Potassium Chloride (Klor-Con 10) 40 meq PO BRK [facility] Last Admin: 11/14/18 08:00 Dose: 40 meq Trazodone HCl (Desyrel) 100 mg PO HS [facility] Last Admin: 11/13/18 21:56 Dose: 100 mg Zolpidem Tartrate (Ambien) 5 mg PO HS [facility] Last Admin: 11/13/18 22:54 Dose: Not Given - Labs Labs: 11/10/18 09:50 11/11/18 06:42 Assessment and Plan (1) COPD exacerbation Status: Acute (2) Chest pain Status: Acute
--- NOTE | 2018-11-14 20:29 | CP.PCM.PN ---
Subjective - Date & Time of Evaluation Date of Evaluation: 11/14/18 Time of Evaluation: 09:30 - Subjective Subjective: clinically same Objective - Vital Signs/Intake and Output Vital Signs (last 24 hours): Temp Pulse Resp BP Pulse Ox 97.3 F L 66 20 114/65 95 11/14/18 16:00 11/14/18 16:16 11/14/18 16:00 11/14/18 16:00 11/14/18 16:00 Intake and Output: 11/14/18 11/15/18 18:59 06:59 Intake Total 500 Balance 500 - Medications Medications: Current Medications Albuterol Sulfate (Albuterol 0.083% Inhal Maureen (2.5 Mg/3 Ml) Ud) 2.5 mg IH RQ2 [facility] Last Admin: 11/14/18 19:41 Dose: 2.5 mg Albuterol/Ipratropium (Duoneb 3 Mg/0.5 Mg (3 Ml) Ud) 3 ml IH RTID PRN PRN Reason: Wheezing Alprazolam (Xanax) 0.5 mg PO TID PRN PRN Reason: Anxiety Last Admin: 11/13/18 20:29 Dose: 0.5 mg Docusate Sodium (Colace) 200 mg PO HS [facility] Last Admin: 11/13/18 21:56 Dose: 200 mg Enoxaparin Sodium (Lovenox) 40 mg SC DAILY [facility] Last Admin: 11/14/18 10:49 Dose: 40 mg Escitalopram Oxalate (Lexapro) 10 mg PO DAILY [facility] Last Admin: 11/14/18 10:56 Dose: 10 mg Fluticasone/Vilanterol (Breo Ellipta 200-25 Mcg Inh) 1 puff INH RQD [facility] Gabapentin (Neurontin) 300 mg PO BID [facility] Last Admin: 11/14/18 17:18 Dose: 300 mg Guaifenesin (Robitussin) 100 mg PO Q4H [facility] Last Admin: 11/14/18 15:00 Dose: Not Given Hydroxyzine HCl (Atarax) 25 mg PO BID PRN PRN Reason: Anxiety Moxifloxacin HCl (Avelox Iv 400mg/250ml Ns) 400 mg in 250 mls @ 167 mls/hr IVPB Q24H [facility]; Protocol Last Admin: 11/14/18 14:22 Dose: 167 mls/hr Methadone HCl (Methadone) 60 mg PO DAILY [facility] Last Admin: 11/14/18 10:48 Dose: 60 mg Methylprednisolone (Solu-Medrol) 40 mg IVP Q8 [facility] Last Admin: 11/14/18 13:04 Dose: 40 mg Montelukast Sodium (Singulair) 10 mg PO [facility] Last Admin: 11/13/18 21:56 Dose: 10 mg Potassium Chloride (Klor-Con 10) 40 meq PO BRK [facility] Last Admin: 11/14/18 08:00 Dose: 40 meq Trazodone HCl (Desyrel) 100 mg PO HS [facility] Last Admin: 11/13/18 21:56 Dose: 100 mg Zolpidem Tartrate (Ambien) 5 mg PO [facility] Last Admin: 11/13/18 22:54 Dose: Not Given - Labs Labs: 11/10/18 09:50 11/11/18 06:42 - Constitutional Appears: Well - Head Exam Head Exam: ATRAUMATIC, NORMAL INSPECTION, NORMOCEPHALIC - Eye Exam Eye Exam: EOMI, Normal appearance, PERRL Pupil Exam: NORMAL ACCOMODATION, PERRL - ENT Exam ENT Exam: Mucous Membranes Moist, Normal Exam - Neck Exam Neck Exam: Full ROM, Normal Inspection. absent: Lymphadenopathy - Respiratory Exam Respiratory Exam: Decreased Breath Sounds - Cardiovascular Exam Cardiovascular Exam: REGULAR RHYTHM, +S1, +S2 - GI/Abdominal Exam GI & Abdominal Exam: Soft, Diminished Bowel Sounds - Rectal Exam Rectal Exam: Deferred
[2018-11-15] MEDS: Albuterol 0.083% Inhal Sol (2.5 mg/3 mL) UD IH SCH ×9 (00:15→19:57)
[2018-11-15] MEDS: guaiFENesin 100 mg/5 ml Syrup UD PO SCH ×5 (04:25→21:29)
[2018-11-15] MEDS: MethylPREDNISolone 40 mg Vial IVP SCH ×3 (05:51→21:29)
[2018-11-15] MEDS: Potassium Chloride 10 mEq ER Tab PO SCH (08:30)
[2018-11-15] MEDS: Enoxaparin 40 mg Syringe SC SCH (09:26)
[2018-11-15] MEDS ORDERED: Glucagon Recombinant 1 mg Inj IM PRN (11:32)
[2018-11-15] MEDS ORDERED: Dextrose 50% SYRINGE Inj (50 ml) IV PRN (11:32)
[2018-11-15 11:33] LABS: HEMOGLOBIN 13.6 g/dL (11.0-16.0); MEAN CELL VOLUME 96.8 fL (81.0-99.0); MEAN CORPUSCULAR HEMOGLOBIN 32.8 pg (27.0-31.0); MEAN CORPUSCULAR HGB CONC 33.9 g/dL (33.0-37.0); MEAN PLATELET VOLUME 8.7 fL (7.2-11.7); RBC 4.14 Mil/uL (3.80-5.20); RED CELL DISTRIBUTION WIDTH 15.5 % (11.5-14.5); WHITE BLOOD COUNT 9.5 K/uL (4.8-10.8)
[2018-11-15] MEDS: (Novolog) Insulin Aspart, Recombinant 100 u/ml 10 ml vial SC SCH ×4 (11:55→21:59)
[2018-11-15 12:50] LABS: BLOOD UREA NITROGEN 22 mg/dL (7-17); CALCIUM 9.4 mg/dl (8.6-10.4); GFR NON-AFRICAN AMERICAN > 60
[2018-11-15] MEDS: Moxifloxacin IV 400mg/250ml NS 400 MG/250 ML BAG IVPB SCH (14:15)
--- NOTE | 2018-11-15 14:31 | CP.PCM.PN ---
Subjective - Date & Time of Evaluation Date of Evaluation: 11/15/18 Time of Evaluation: 10:40 - Subjective Subjective: Patient seen and examined Sitting comfortably in no distress Afebrile Patient is off high flow oxygen and refusing to use BiPAP Complaining of earache Objective - Vital Signs/Intake and Output Vital Signs (last 24 hours): Temp Pulse Resp BP Pulse Ox 97.9 F 51 L 20 128/71 95 11/15/18 07:00 11/15/18 07:10 11/15/18 07:00 11/15/18 07:00 11/15/18 07:00 - Medications Medications: Current Medications Albuterol Sulfate (Albuterol 0.083% Inhal Amureen (2.5 Mg/3 Ml) Ud) 2.5 mg IH RQ2 [facility] Last Admin: 11/15/18 13:18 Dose: 2.5 mg Albuterol/Ipratropium (Duoneb 3 Mg/0.5 Mg (3 Ml) Ud) 3 ml IH RTID PRN PRN Reason: Wheezing Alprazolam (Xanax) 0.5 mg PO TID PRN PRN Reason: Anxiety Last Admin: 11/15/18 04:28 Dose: 0.5 mg Dextrose (Dextrose 50% Inj) 0 ml IV STAT PRN; Protocol PRN Reason: Hypoglycemia Protocol Dextrose (Glutose 15) 0 gm PO ONCE PRN; Protocol PRN Reason: Hypoglycemia Protocol Docusate Sodium (Colace) 200 mg PO HS [facility] Last Admin: 11/14/18 21:13 Dose: 200 mg Enoxaparin Sodium (Lovenox) 40 mg SC DAILY [facility] Last Admin: 11/15/18 09:26 Dose: 40 mg Escitalopram Oxalate (Lexapro) 10 mg PO DAILY [facility] Last Admin: 11/15/18 09:36 Dose: 10 mg Fluticasone/Vilanterol (Breo Ellipta 200-25 Mcg Inh) 1 puff INH RQD [facility] Gabapentin (Neurontin) 300 mg PO BID [facility] Last Admin: 11/15/18 09:27 Dose: 300 mg Glucagon (Glucagen Diagnostic Kit) 0 mg IM STAT PRN; Protocol PRN Reason: Hypoglycemia Protocol Guaifenesin (Robitussin) 100 mg PO Q4H [facility] Last Admin: 11/15/18 11:54 Dose: 100 mg Hydroxyzine HCl (Atarax) 25 mg PO BID PRN PRN Reason: Anxiety Moxifloxacin HCl (Avelox Iv 400mg/250ml Ns) 400 mg in 250 mls @ 167 mls/hr IVPB Q24H [facility]; Protocol Last Admin: 11/15/18 14:15 Dose: 167 mls/hr Dextrose (Dextrose 5% In Water 1000 Ml) 1,000 mls @ 0 mls/hr IV .Q0M PRN; Protocol PRN Reason: Hypoglycemia Protocol Insulin Aspart (Novolog) 0 unit SC ACHS [facility]; Protocol Last Admin: 11/15/18 11:55 Dose: 10 units Methadone HCl (Methadone) 60 mg PO DAILY [facility] Last Admin: 11/15/18 09:26 Dose: 60 mg Methylprednisolone (Solu-Medrol) 40 mg IVP Q8 [facility] Last Admin: 11/15/18 14:09 Dose: 40 mg Montelukast Sodium (Singulair) 10 mg PO HS [facility] Last Admin: 11/14/18 21:13 Dose: 10 mg Potassium Chloride (Klor-Con 10) 40 meq PO BRK [facility] Last Admin: 11/15/18 08:30 Dose: 40 meq Trazodone HCl (Desyrel) 100 mg PO HS [facility] Last Admin: 11/14/18 21:12 Dose: 100 mg Zolpidem Tartrate (Ambien) 5 mg PO HS [facility] Last Admin: 11/14/18 21:13 Dose: 5 mg - Labs Labs: 11/15/18 11:25 11/15/18 11:25 - Head Exam Head Exam: ATRAUMATIC, NORMOCEPHALIC - ENT Exam ENT Exam: Mucous Membranes Moist - Neck Exam Neck Exam: Normal Inspection - Respiratory Exam Respiratory Exam: Decreased Breath Sounds - Cardiovascular Exam Cardiovascular Exam: REGULAR RHYTHM - GI/Abdominal Exam GI & Abdominal Exam: Soft, Normal Bowel Sounds - Extremities Exam Extremities Exam: Pedal Edema - Neurological Exam Neurological Exam: Alert Assessment and Plan (1) COPD exacerbation Assessment & Plan: Taper steroids Continue nebulizer treatment Patient advised to use BiPAP at night ENT evaluation for right earache Continue methadone Physical therapy Status: Acute (2) Chest pain Status: Acute
--- NOTE | 2018-11-15 18:08 | CP.PCM.PN ---
Subjective - Date & Time of Evaluation Date of Evaluation: 11/15/18 Time of Evaluation: 09:30 - Subjective Subjective: clinically same Objective - Vital Signs/Intake and Output Vital Signs (last 24 hours): Temp Pulse Resp BP Pulse Ox 98.1 F 74 20 120/73 96 11/15/18 15:09 11/15/18 15:09 11/15/18 15:09 11/15/18 15:09 11/15/18 15:09 Intake and Output: 11/15/18 11/15/18 06:59 18:59 Intake Total 660 Balance 660 - Medications Medications: Current Medications Albuterol Sulfate (Albuterol 0.083% Inhal Maureen (2.5 Mg/3 Ml) Ud) 2.5 mg IH RQ6 [facility] Albuterol/Ipratropium (Duoneb 3 Mg/0.5 Mg (3 Ml) Ud) 3 ml IH RTID PRN PRN Reason: Wheezing Alprazolam (Xanax) 0.5 mg PO TID PRN PRN Reason: Anxiety Last Admin: 11/15/18 04:28 Dose: 0.5 mg Dextrose (Dextrose 50% Inj) 0 ml IV STAT PRN; Protocol PRN Reason: Hypoglycemia Protocol Dextrose (Glutose 15) 0 gm PO ONCE PRN; Protocol PRN Reason: Hypoglycemia Protocol Docusate Sodium (Colace) 200 mg PO HS [facility] Last Admin: 11/14/18 21:13 Dose: 200 mg Enoxaparin Sodium (Lovenox) 40 mg SC DAILY [facility] Last Admin: 11/15/18 09:26 Dose: 40 mg Escitalopram Oxalate (Lexapro) 10 mg PO DAILY [facility] Last Admin: 11/15/18 09:36 Dose: 10 mg Fluticasone/Vilanterol (Breo Ellipta 200-25 Mcg Inh) 1 puff INH RQD [facility] Gabapentin (Neurontin) 300 mg PO BID [facility] Last Admin: 11/15/18 17:57 Dose: 300 mg Glucagon (Glucagen Diagnostic Kit) 0 mg IM STAT PRN; Protocol PRN Reason: Hypoglycemia Protocol Guaifenesin (Robitussin) 100 mg PO Q4H [facility] Last Admin: 11/15/18 15:10 Dose: Not Given Hydroxyzine HCl (Atarax) 25 mg PO BID PRN PRN Reason: Anxiety Moxifloxacin HCl (Avelox Iv 400mg/250ml Ns) 400 mg in 250 mls @ 167 mls/hr IVPB Q24H [facility]; Protocol Last Admin: 11/15/18 14:15 Dose: 167 mls/hr Dextrose (Dextrose 5% In Water 1000 Ml) 1,000 mls @ 0 mls/hr IV .Q0M PRN; Protocol PRN Reason: Hypoglycemia Protocol Insulin Aspart (Novolog) 0 unit SC ACHS [facility]; Protocol Last Admin: 11/15/18 18:04 Dose: Not Given Metformin HCl (Glucophage) 500 mg PO BIDCC [facility] Last Admin: 11/15/18 17:57 Dose: 500 mg Methadone HCl (Methadone) 60 mg PO DAILY [facility] Last Admin: 11/15/18 09:26 Dose: 60 mg Methylprednisolone (Solu-Medrol) 20 mg IVP Q12 [facility] Montelukast Sodium (Singulair) 10 mg PO HS [facility] Last Admin: 11/14/18 21:13 Dose: 10 mg Potassium Chloride (Klor-Con 10) 40 meq PO BRK [facility] Last Admin: 11/15/18 08:30 Dose: 40 meq Trazodone HCl (Desyrel) 100 mg PO HS [facility] Last Admin: 11/14/18 21:12 Dose: 100 mg Zolpidem Tartrate (Ambien) 5 mg PO HS [facility] Last Admin: 11/14/18 21:13 Dose: 5 mg - Labs Labs: 11/15/18 11:25 11/15/18 11:25 - Constitutional Appears: Well - Head Exam Head Exam: ATRAUMATIC, NORMAL INSPECTION, NORMOCEPHALIC - Eye Exam Eye Exam: EOMI, Normal appearance, PERRL Pupil Exam: NORMAL ACCOMODATION, PERRL - ENT Exam ENT Exam: Mucous Membranes Moist, Normal Exam - Neck Exam Neck Exam: Full ROM, Normal Inspection. absent: Lymphadenopathy - Respiratory Exam Respiratory Exam: Decreased Breath Sounds - Cardiovascular Exam Cardiovascular Exam: REGULAR RHYTHM, +S1, +S2 - GI/Abdominal Exam GI & Abdominal Exam: Soft, Diminished Bowel Sounds - Rectal Exam Rectal Exam: Deferred
--- NOTE | 2018-11-15 23:18 | CARD ---
APPROVED REPORT Date of service: 11/14/2018 EXAM: Two-dimensional and M-mode echocardiogram with Doppler and color Doppler. Other Information Quality : GoodRhythm : INDICATION Abnormal EKG/Arrhythmia Dyspnea COPD RV DYSFUNCTION RISK FACTORS Hypertension Diabetes 2D DIMENSIONS IVSd0.8 (0.7-1.1cm)LVDd4.4 (3.9-5.9cm) PWd1.0 (0.7-1.1cm)LA Aagnde26 (18-58mL) LVDs3.0 (2.5-4.0cm)FS (%) 32.8 % LVEF (%)61.4 (>50%)LVEF (Meeks's)71.20 % M-Mode DIMENSIONS Left Atrium (MM)3.11 (2.5-4.0cm)IVSd0.91 (0.7-1.1cm) Aortic Root3.39 (2.2-3.7cm)LVDd5.71 (4.0-5.6cm) Aortic Cusp Exc.2.51 (1.5-2.0cm)PWd0.91 (0.7-1.1cm) FS (%) 31 %LVDs3.94 (2.0-3.8cm) Mitral Valve MV E Pqhqalwo25.5cm/sMV A Wsoacabm06.0cm/sE/A ratio1.1 TDI Lateral E' Peak V3.45cm/sMedial E' Peak V8.38cm/sE/Lateral E'19.3 E/Medial E'7.9 Tricuspid Valve TR Peak [id number]/sTR Peak [id number] LEFT VENTRICLE The left ventricle is normal size. There is normal left ventricular wall thickness. Left ventricle systolic function is normal. The Ejection Fraction is 65-70%. There is normal LV segmental wall motion. The left ventricular diastolic function is normal. No left ventricle thrombus noted on this study. RIGHT VENTRICLE The right ventricle is normal size. There is normal right ventricular wall thickness. The right ventricular systolic function is normal. ATRIA The left atrium size is normal. The right atrium size is normal. The interatrial septum is intact with no evidence for an atrial septal defect. AORTIC VALVE The aortic valve is normal in structure. No aortic regurgitation is present. There is no aortic valvular stenosis. There is no aortic valvular vegetation. MITRAL VALVE The mitral valve is normal in structure. There is no evidence of mitral valve prolapse. There is no mitral valve stenosis. Mitral regurgitation is trace. TRICUSPID VALVE The tricuspid valve is normal in structure. There is trace tricuspid regurgitation. Right ventricular systolic pressure is estimated at less than 30 mmHg. There is no pulmonary hypertension. PULMONIC VALVE The pulmonic valve is not well visualized. There is trace pulmonic valvular regurgitation. GREAT VESSELS The aortic root is normal in size. PERICARDIAL EFFUSION There is no significant pericardial effusion. <Conclusion> Left ventricle systolic function is normal. The Ejection Fraction is 65-70%. No aortic regurgitation is present. Mitral regurgitation is trace. There is trace tricuspid regurgitation. There is no pulmonary hypertension. There is trace pulmonic valvular regurgitation.
[2018-11-16] MEDS: guaiFENesin 100 mg/5 ml Syrup UD PO SCH ×7 (00:16→23:30)
[2018-11-16] MEDS: Albuterol 0.083% Inhal Sol (2.5 mg/3 mL) UD IH SCH ×4 (01:19→19:12)
[2018-11-16] MEDS: Potassium Chloride 10 mEq ER Tab PO SCH (08:10)
[2018-11-16] MEDS: (Novolog) Insulin Aspart, Recombinant 100 u/ml 10 ml vial SC SCH ×4 (08:17→22:02)
[2018-11-16] MEDS: MethylPREDNISolone 40 mg Vial IVP SCH ×2 (08:59→21:22)
[2018-11-16] MEDS: Enoxaparin 40 mg Syringe SC SCH (09:00)
[2018-11-16] MEDS: Moxifloxacin IV 400mg/250ml NS 400 MG/250 ML BAG IVPB SCH (14:22)
--- NOTE | 2018-11-16 14:49 | CP.PCM.PN ---
Subjective - Date & Time of Evaluation Date of Evaluation: 11/16/18 Time of Evaluation: 12:40 - Subjective Subjective: Patient seen and examined Alert, Awake, No acute distress Patient is still complaining of ear pain and changes in hearing ENT Consulted Denies fever, chest pain, SOB, hemoptysis Afebrile Physical Exam Oxygen Saturation 97% NC General: NAD Cardio: S1. S2, No murmurs, rubs, gallops Resp: Decreased breath sounds Abd: Soft, non-tender, No rebound, rigidity, guarding A/P 1) COPD Exacerbation -Continue nebulizer treatment -Taper Steroids -Patient advised to use BiPAP at night -Continue methadone -Physical therapy 2) Chest Pain -Acute -F/u Echo Objective - Vital Signs/Intake and Output Vital Signs (last 24 hours): Temp Pulse Resp BP Pulse Ox 98.2 F 57 L 18 113/73 97 11/16/18 07:00 11/16/18 07:00 11/16/18 07:00 11/16/18 07:00 11/16/18 07:00 Intake and Output: 11/16/18 11/16/18 06:59 18:59 Intake Total 480 Balance 480 - Medications Medications: Current Medications Albuterol Sulfate (Albuterol 0.083% Inhal Maureen (2.5 Mg/3 Ml) Ud) 2.5 mg IH RQ6 [facility] Last Admin: 11/16/18 13:15 Dose: Not Given Albuterol/Ipratropium (Duoneb 3 Mg/0.5 Mg (3 Ml) Ud) 3 ml IH RTID PRN PRN Reason: Wheezing Alprazolam (Xanax) 0.5 mg PO TID PRN PRN Reason: Anxiety Last Admin: 11/16/18 09:05 Dose: 0.5 mg Dextrose (Dextrose 50% Inj) 0 ml IV STAT PRN; Protocol PRN Reason: Hypoglycemia Protocol Dextrose (Glutose 15) 0 gm PO ONCE PRN; Protocol PRN Reason: Hypoglycemia Protocol Docusate Sodium (Colace) 200 mg PO HS [facility] Last Admin: 11/15/18 21:29 Dose: 200 mg Enoxaparin Sodium (Lovenox) 40 mg SC DAILY [facility] Last Admin: 11/16/18 09:00 Dose: 40 mg Escitalopram Oxalate (Lexapro) 10 mg PO DAILY [facility] Last Admin: 11/16/18 09:03 Dose: 10 mg Fluticasone/Vilanterol (Breo Ellipta 200-25 Mcg Inh) 1 puff INH RQD [facility] Gabapentin (Neurontin) 300 mg PO BID [facility] Last Admin: 11/16/18 09:00 Dose: 300 mg Glucagon (Glucagen Diagnostic Kit) 0 mg IM STAT PRN; Protocol PRN Reason: Hypoglycemia Protocol Guaifenesin (Robitussin) 100 mg PO Q4H [facility] Last Admin: 11/16/18 12:47 Dose: 100 mg Hydroxyzine HCl (Atarax) 25 mg PO BID PRN PRN Reason: Anxiety Moxifloxacin HCl (Avelox Iv 400mg/250ml Ns) 400 mg in 250 mls @ 167 mls/hr IVPB Q24H [facility]; Protocol Last Admin: 11/16/18 14:22 Dose: 167 mls/hr Dextrose (Dextrose 5% In Water 1000 Ml) 1,000 mls @ 0 mls/hr IV .Q0M PRN; Protocol PRN Reason: Hypoglycemia Protocol Insulin Aspart (Novolog) 0 unit SC ACHS [facility]; Protocol Last Admin: 11/16/18 12:43 Dose: 4 units Metformin HCl (Glucophage) 500 mg PO BIDCC [facility] Last Admin: 11/16/18 08:20 Dose: 500 mg Methadone HCl (Methadone) 60 mg PO DAILY [facility] Last Admin: 11/16/18 08:59 Dose: 60 mg Methylprednisolone (Solu-Medrol) 20 mg IVP Q12 [facility] Last Admin: 11/16/18 08:59 Dose: 20 mg Montelukast Sodium (Singulair) 10 mg PO HS [facility] Last Admin: 11/15/18 21:28 Dose: 10 mg Potassium Chloride (Klor-Con 10) 40 meq PO BRK [facility] Last Admin: 11/16/18 08:10 Dose: 40 meq Trazodone HCl (Desyrel) 100 mg PO HS [facility] Last Admin: 11/15/18 21:29 Dose: 100 mg Zolpidem Tartrate (Ambien) 5 mg PO HS [facility] Last Admin: 11/15/18 22:00 Dose: Not Given - Labs Labs: 11/15/18 11:25 11/15/18 11:25 Assessment and Plan (1) COPD exacerbation Status: Acute (2) Chest pain Status: Acute
--- NOTE | 2018-11-16 19:16 | CP.PCM.PN ---
Subjective - Date & Time of Evaluation Date of Evaluation: 11/16/18 Time of Evaluation: 09:15 - Subjective Subjective: clinically same Objective - Vital Signs/Intake and Output Vital Signs (last 24 hours): Temp Pulse Resp BP Pulse Ox 98.0 F 73 18 109/69 94 L 11/16/18 15:05 11/16/18 15:05 11/16/18 15:05 11/16/18 15:05 11/16/18 15:05 Intake and Output: 11/16/18 11/17/18 18:59 06:59 Intake Total 550 Balance 550 - Medications Medications: Current Medications Albuterol Sulfate (Albuterol 0.083% Inhal Maureen (2.5 Mg/3 Ml) Ud) 2.5 mg IH RQ6 [facility] Last Admin: 11/16/18 19:12 Dose: 2.5 mg Alprazolam (Xanax) 0.5 mg PO TID PRN PRN Reason: Anxiety Last Admin: 11/16/18 09:05 Dose: 0.5 mg Dextrose (Dextrose 50% Inj) 0 ml IV STAT PRN; Protocol PRN Reason: Hypoglycemia Protocol Dextrose (Glutose 15) 0 gm PO ONCE PRN; Protocol PRN Reason: Hypoglycemia Protocol Docusate Sodium (Colace) 200 mg PO HS [facility] Last Admin: 11/15/18 21:29 Dose: 200 mg Enoxaparin Sodium (Lovenox) 40 mg SC DAILY [facility] Last Admin: 11/16/18 09:00 Dose: 40 mg Escitalopram Oxalate (Lexapro) 10 mg PO DAILY [facility] Last Admin: 11/16/18 09:03 Dose: 10 mg Fluticasone/Vilanterol (Breo Ellipta 200-25 Mcg Inh) 1 puff INH RQD [facility] Gabapentin (Neurontin) 300 mg PO BID [facility] Last Admin: 11/16/18 18:17 Dose: 300 mg Glucagon (Glucagen Diagnostic Kit) 0 mg IM STAT PRN; Protocol PRN Reason: Hypoglycemia Protocol Guaifenesin (Robitussin) 100 mg PO Q4H [facility] Last Admin: 11/16/18 18:24 Dose: 100 mg Hydroxyzine HCl (Atarax) 25 mg PO BID PRN PRN Reason: Anxiety Moxifloxacin HCl (Avelox Iv 400mg/250ml Ns) 400 mg in 250 mls @ 167 mls/hr IVPB Q24H [facility]; Protocol Last Admin: 11/16/18 14:22 Dose: 167 mls/hr Dextrose (Dextrose 5% In Water 1000 Ml) 1,000 mls @ 0 mls/hr IV .Q0M PRN; Protocol PRN Reason: Hypoglycemia Protocol Insulin Aspart (Novolog) 0 unit SC ACHS [facility]; Protocol Last Admin: 11/16/18 18:17 Dose: 6 units Metformin HCl (Glucophage) 500 mg PO BIDCC [facility] Last Admin: 11/16/18 18:18 Dose: 500 mg Methadone HCl (Methadone) 60 mg PO DAILY [facility] Last Admin: 11/16/18 08:59 Dose: 60 mg Methylprednisolone (Solu-Medrol) 20 mg IVP Q12 [facility] Last Admin: 11/16/18 08:59 Dose: 20 mg Montelukast Sodium (Singulair) 10 mg PO HS [facility] Last Admin: 11/15/18 21:28 Dose: 10 mg Potassium Chloride (Klor-Con 10) 40 meq PO BRK [facility] Last Admin: 11/16/18 08:10 Dose: 40 meq Trazodone HCl (Desyrel) 100 mg PO [facility] Last Admin: 11/15/18 21:29 Dose: 100 mg Zolpidem Tartrate (Ambien) 5 mg PO [facility] Last Admin: 11/15/18 22:00 Dose: Not Given - Labs Labs: 11/15/18 11:25 11/15/18 11:25 - Constitutional Appears: Well - Head Exam Head Exam: ATRAUMATIC, NORMAL INSPECTION, NORMOCEPHALIC - Eye Exam Eye Exam: EOMI, Normal appearance, PERRL Pupil Exam: NORMAL ACCOMODATION, PERRL - ENT Exam ENT Exam: Mucous Membranes Moist, Normal Exam - Neck Exam Neck Exam: Full ROM, Normal Inspection. absent: Lymphadenopathy - Respiratory Exam Respiratory Exam: Decreased Breath Sounds - Cardiovascular Exam Cardiovascular Exam: REGULAR RHYTHM, +S1, +S2 - GI/Abdominal Exam GI & Abdominal Exam: Soft, Diminished Bowel Sounds - Rectal Exam Rectal Exam: Deferred
[2018-11-17] MEDS: Albuterol 0.083% Inhal Sol (2.5 mg/3 mL) UD IH SCH ×4 (01:11→19:32)
[2018-11-17] MEDS: guaiFENesin 100 mg/5 ml Syrup UD PO SCH ×6 (03:14→23:48)
[2018-11-17] MEDS: (Novolog) Insulin Aspart, Recombinant 100 u/ml 10 ml vial SC SCH ×4 (08:00→22:06)
[2018-11-17] MEDS: Potassium Chloride 10 mEq ER Tab PO SCH (09:00)
[2018-11-17] MEDS: Enoxaparin 40 mg Syringe SC SCH (10:43)
[2018-11-17] MEDS: MethylPREDNISolone 40 mg Vial IVP SCH ×2 (10:43→22:07)
[2018-11-17] MEDS: Moxifloxacin IV 400mg/250ml NS 400 MG/250 ML BAG IVPB SCH (14:26)
--- NOTE | 2018-11-17 15:15 | CON ---
DATE: 11/17/2018 REASON FOR CONSULTATION: Hearing loss. REQUESTING PHYSICIAN: Jae Ceja MD HISTORY OF PRESENT ILLNESS: This is a 57-year-old female with a one-year history of hearing loss on both sides, constant, moderate in intensity, no ringing in the ear. No nasal congestion, no throat pain. PAST MEDICAL HISTORY: As noted in the chart by me. MEDICATIONS: As noted in the chart by me. ALLERGIES: NOTED IN THE CHART BY ME. PHYSICAL EXAMINATION: HEAD: Normocephalic, atraumatic. FACE: Good facial movements bilaterally. CONSTITUTIONAL: Well-fed, well nourished. COMMUNICATION: Communicates well and appropriately. EXTERNAL NOSE AND EARS: No masses, no lesions, no erythema, no edema. INTERNAL NOSE AND EARS: No masses, no lesions, no erythema, no edema. ORAL CAVITY AND OROPHARYNX: No masses, no lesions, no erythema, no edema. LIPS AND GUMS: No masses, no lesions, no erythema, no edema. EARS: TM's intact. No fluids behind it. NECK: Supple. No thyromegaly. No goiter. LYMPH NODES: No lymphadenopathy of the neck. ASSESSMENT: 1. Hearing loss, bilateral. Most recent, perineural. 2. Deviated septum. PLAN: The patient to follow up as an outpatient for a hearing test. Justo Nieves MD
--- NOTE | 2018-11-17 17:41 | CP.PCM.PN ---
Subjective - Date & Time of Evaluation Date of Evaluation: 11/17/18 Time of Evaluation: 08:20 - Subjective Subjective: Patient seen and examined Alert, Awake, No acute distress Patient is still complaining of ear pain and changes in hearing She states that she will follow-up with ENT outpatient Denies fever, chest pain, SOB, hemoptysis Afebrile Patient is clinically stable for discharge Physical Exam Oxygen Saturation 95% Room General: NAD Cardio: S1. S2, No murmurs, rubs, gallops Resp: CTA Abd: Soft, non-tender, No rebound, rigidity, guarding A/P 1) COPD Exacerbation -Patient is clinically stable for discharge 2) Chest Pain -Acute Objective - Vital Signs/Intake and Output Vital Signs (last 24 hours): Temp Pulse Resp BP Pulse Ox 98.1 F 65 20 109/69 94 L 11/17/18 16:00 11/17/18 16:00 11/17/18 16:00 11/17/18 16:00 11/17/18 16:00 Intake and Output: 11/17/18 11/17/18 06:59 18:59 Intake Total 580 600 Balance 580 600 - Medications Medications: Current Medications Albuterol Sulfate (Albuterol 0.083% Inhal Maureen (2.5 Mg/3 Ml) Ud) 2.5 mg IH RQ6 [facility] Last Admin: 11/17/18 13:30 Dose: 2.5 mg Alprazolam (Xanax) 0.5 mg PO TID PRN PRN Reason: Anxiety Last Admin: 11/16/18 21:22 Dose: 0.5 mg Dextrose (Dextrose 50% Inj) 0 ml IV STAT PRN; Protocol PRN Reason: Hypoglycemia Protocol Dextrose (Glutose 15) 0 gm PO ONCE PRN; Protocol PRN Reason: Hypoglycemia Protocol Docusate Sodium (Colace) 200 mg PO HS [facility] Last Admin: 11/16/18 21:22 Dose: 200 mg Escitalopram Oxalate (Lexapro) 10 mg PO DAILY [facility] Last Admin: 11/17/18 10:56 Dose: 10 mg Fluticasone/Vilanterol (Breo Ellipta 200-25 Mcg Inh) 1 puff INH RQD [facility] Gabapentin (Neurontin) 300 mg PO BID [facility] Last Admin: 11/17/18 10:43 Dose: 300 mg Glucagon (Glucagen Diagnostic Kit) 0 mg IM STAT PRN; Protocol PRN Reason: Hypoglycemia Protocol Guaifenesin (Robitussin) 100 mg PO Q4H [facility] Last Admin: 11/17/18 15:56 Dose: Not Given Hydroxyzine HCl (Atarax) 25 mg PO BID PRN PRN Reason: Anxiety Moxifloxacin HCl (Avelox Iv 400mg/250ml Ns) 400 mg in 250 mls @ 167 mls/hr IVPB Q24H [facility]; Protocol Last Admin: 11/17/18 14:26 Dose: 167 mls/hr Dextrose (Dextrose 5% In Water 1000 Ml) 1,000 mls @ 0 mls/hr IV .Q0M PRN; Protocol PRN Reason: Hypoglycemia Protocol Insulin Aspart (Novolog) 0 unit SC ACHS [facility]; Protocol Last Admin: 11/17/18 12:31 Dose: 8 units Metformin HCl (Glucophage) 500 mg PO BIDCC [facility] Last Admin: 11/17/18 09:00 Dose: 500 mg Methadone HCl (Methadone) 60 mg PO DAILY [facility] Last Admin: 11/17/18 10:41 Dose: 60 mg Methylprednisolone (Solu-Medrol) 20 mg IVP Q12 [facility] Last Admin: 11/17/18 10:43 Dose: 20 mg Montelukast Sodium (Singulair) 10 mg PO HS [facility] Last Admin: 11/16/18 21:22 Dose: 10 mg Potassium Chloride (Klor-Con 10) 40 meq PO BRK [facility] Last Admin: 11/17/18 09:00 Dose: 40 meq Trazodone HCl (Desyrel) 100 mg PO HS [facility] Last Admin: 11/16/18 21:22 Dose: 100 mg Zolpidem Tartrate (Ambien) 5 mg PO HS [facility] Last Admin: 11/16/18 22:03 Dose: Not Given - Labs Labs: 11/15/18 11:25 11/15/18 11:25 Assessment and Plan (1) COPD exacerbation Status: Acute (2) Chest pain Status: Acute
--- NOTE | 2018-11-17 19:20 | CP.PCM.PN ---
Subjective - Date & Time of Evaluation Date of Evaluation: 11/17/18 Time of Evaluation: 09:00 - Subjective Subjective: clinically same Objective - Vital Signs/Intake and Output Vital Signs (last 24 hours): Temp Pulse Resp BP Pulse Ox 98.1 F 65 20 109/69 94 L 11/17/18 16:00 11/17/18 16:00 11/17/18 16:00 11/17/18 16:00 11/17/18 16:00 Intake and Output: 11/17/18 11/18/18 18:59 06:59 Intake Total 600 Balance 600 - Medications Medications: Current Medications Albuterol Sulfate (Albuterol 0.083% Inhal Maureen (2.5 Mg/3 Ml) Ud) 2.5 mg IH RQ6 [facility] Last Admin: 11/17/18 13:30 Dose: 2.5 mg Alprazolam (Xanax) 0.5 mg PO TID PRN PRN Reason: Anxiety Last Admin: 11/16/18 21:22 Dose: 0.5 mg Dextrose (Dextrose 50% Inj) 0 ml IV STAT PRN; Protocol PRN Reason: Hypoglycemia Protocol Dextrose (Glutose 15) 0 gm PO ONCE PRN; Protocol PRN Reason: Hypoglycemia Protocol Docusate Sodium (Colace) 200 mg PO HS [facility] Last Admin: 11/16/18 21:22 Dose: 200 mg Escitalopram Oxalate (Lexapro) 10 mg PO DAILY [facility] Last Admin: 11/17/18 10:56 Dose: 10 mg Fluticasone/Vilanterol (Breo Ellipta 200-25 Mcg Inh) 1 puff INH RQD [facility] Gabapentin (Neurontin) 300 mg PO BID [facility] Last Admin: 11/17/18 17:52 Dose: 300 mg Glucagon (Glucagen Diagnostic Kit) 0 mg IM STAT PRN; Protocol PRN Reason: Hypoglycemia Protocol Guaifenesin (Robitussin) 100 mg PO Q4H [facility] Last Admin: 11/17/18 15:56 Dose: Not Given Hydroxyzine HCl (Atarax) 25 mg PO BID PRN PRN Reason: Anxiety Moxifloxacin HCl (Avelox Iv 400mg/250ml Ns) 400 mg in 250 mls @ 167 mls/hr IVPB Q24H [facility]; Protocol Last Admin: 11/17/18 14:26 Dose: 167 mls/hr Dextrose (Dextrose 5% In Water 1000 Ml) 1,000 mls @ 0 mls/hr IV .Q0M PRN; Protocol PRN Reason: Hypoglycemia Protocol Insulin Aspart (Novolog) 0 unit SC ACHS [facility]; Protocol Last Admin: 11/17/18 17:52 Dose: 4 units Metformin HCl (Glucophage) 500 mg PO BIDCC [facility] Last Admin: 11/17/18 17:52 Dose: 500 mg Methadone HCl (Methadone) 60 mg PO DAILY [facility] Last Admin: 11/17/18 10:41 Dose: 60 mg Methylprednisolone (Solu-Medrol) 20 mg IVP Q12 [facility] Last Admin: 11/17/18 10:43 Dose: 20 mg Montelukast Sodium (Singulair) 10 mg PO HS [facility] Last Admin: 11/16/18 21:22 Dose: 10 mg Potassium Chloride (Klor-Con 10) 40 meq PO BRK [facility] Last Admin: 11/17/18 09:00 Dose: 40 meq Trazodone HCl (Desyrel) 100 mg PO [facility] Last Admin: 11/16/18 21:22 Dose: 100 mg Zolpidem Tartrate (Ambien) 5 mg PO [facility] Last Admin: 11/16/18 22:03 Dose: Not Given - Labs Labs: 11/15/18 11:25 11/15/18 11:25 - Constitutional Appears: Well - Head Exam Head Exam: ATRAUMATIC, NORMAL INSPECTION, NORMOCEPHALIC - Eye Exam Eye Exam: EOMI, Normal appearance, PERRL Pupil Exam: NORMAL ACCOMODATION, PERRL - ENT Exam ENT Exam: Mucous Membranes Moist, Normal Exam - Neck Exam Neck Exam: Full ROM, Normal Inspection. absent: Lymphadenopathy - Respiratory Exam Respiratory Exam: Decreased Breath Sounds - Cardiovascular Exam Cardiovascular Exam: REGULAR RHYTHM, +S1, +S2 - GI/Abdominal Exam GI & Abdominal Exam: Soft, Diminished Bowel Sounds - Rectal Exam Rectal Exam: Deferred
[2018-11-18] MEDS: Albuterol 0.083% Inhal Sol (2.5 mg/3 mL) UD IH SCH ×3 (01:24→13:24)
[2018-11-18] MEDS: guaiFENesin 100 mg/5 ml Syrup UD PO SCH ×5 (03:15→16:17)
--- NOTE | 2018-11-18 07:53 | CP.PCM.PN ---
Subjective - Date & Time of Evaluation Date of Evaluation: 11/18/18 Time of Evaluation: 10:45 - Subjective Subjective: Ms. Nichole is a 57 year old female with a PMHx COPD (3L Home 02)/Emphysema, Substance Abuse, Anemia, Anxiety, and Diabetes who was admitted for evaluation and treatment of COPD exacerbation. Patient found to have elevated sugars during hospital stay and was diagnosed with Diabetes. Further questioning revealed that patient was diagnosed with diabetes about a year and a half ago and was on insulin and oral therapy. Today, patient offers no complaints. She denies fever, chills, chest pain, nausea, vomiting, changes in bowel habits or urinary symptoms. Her SOB is at her baseline. ROS: As stated above PMHx: As stated above PSHx: 5 Right eye surgeries, Oral Surgery for Dentures, , Allergies: Penicillins SocialHx: >30Pack year smoking history. Denies EtOH or current illicit drug use. Is in methadone program. Hos: See chart FamHx: Diabetes/COPD/Heart Disease in multiple first degree family Members. Objective - Vital Signs/Intake and Output Vital Signs (last 24 hours): Temp Pulse Resp BP Pulse Ox 97.8 F 80 20 114/69 96 11/17/18 23:10 11/17/18 23:10 11/17/18 23:10 11/17/18 23:10 11/18/18 06:30 - Medications Medications: Current Medications Albuterol Sulfate (Albuterol 0.083% Inhal Maureen (2.5 Mg/3 Ml) Ud) 2.5 mg IH RQ6 [facility] Last Admin: 11/18/18 01:24 Dose: Not Given Alprazolam (Xanax) 0.5 mg PO TID PRN PRN Reason: Anxiety Last Admin: 11/17/18 22:06 Dose: 0.5 mg Dextrose (Dextrose 50% Inj) 0 ml IV STAT PRN; Protocol PRN Reason: Hypoglycemia Protocol Dextrose (Glutose 15) 0 gm PO ONCE PRN; Protocol PRN Reason: Hypoglycemia Protocol Docusate Sodium (Colace) 200 mg PO HS [facility] Last Admin: 11/17/18 22:06 Dose: 200 mg Escitalopram Oxalate (Lexapro) 10 mg PO DAILY [facility] Last Admin: 11/17/18 10:56 Dose: 10 mg Fluticasone/Vilanterol (Breo Ellipta 200-25 Mcg Inh) 1 puff INH RQD [facility] Gabapentin (Neurontin) 300 mg PO BID [facility] Last Admin: 11/17/18 17:52 Dose: 300 mg Glucagon (Glucagen Diagnostic Kit) 0 mg IM STAT PRN; Protocol PRN Reason: Hypoglycemia Protocol Guaifenesin (Robitussin) 100 mg PO Q4H [facility] Last Admin: 11/18/18 03:15 Dose: Not Given Hydroxyzine HCl (Atarax) 25 mg PO BID PRN PRN Reason: Anxiety Moxifloxacin HCl (Avelox Iv 400mg/250ml Ns) 400 mg in 250 mls @ 167 mls/hr IVPB Q24H [facility]; Protocol Last Admin: 11/17/18 14:26 Dose: 167 mls/hr Dextrose (Dextrose 5% In Water 1000 Ml) 1,000 mls @ 0 mls/hr IV .Q0M PRN; Protocol PRN Reason: Hypoglycemia Protocol Insulin Aspart (Novolog) 0 unit SC ACHS [facility]; Protocol Last Admin: 11/17/18 22:06 Dose: Not Given Metformin HCl (Glucophage) 500 mg PO BIDCC [facility] Last Admin: 11/17/18 17:52 Dose: 500 mg Methadone HCl (Methadone) 60 mg PO DAILY [facility] Last Admin: 11/17/18 10:41 Dose: 60 mg Methylprednisolone (Solu-Medrol) 20 mg IVP Q12 [facility] Last Admin: 11/17/18 22:07 Dose: 20 mg Montelukast Sodium (Singulair) 10 mg PO HS [facility] Last Admin: 11/17/18 22:06 Dose: 10 mg Potassium Chloride (Klor-Con 10) 40 meq PO BRK [facility] Last Admin: 11/17/18 09:00 Dose: 40 meq Trazodone HCl (Desyrel) 100 mg PO HS [facility] Last Admin: 11/17/18 22:06 Dose: 100 mg Zolpidem Tartrate (Ambien) 5 mg PO HS [facility] Last Admin: 11/16/18 22:03 Dose: Not Given - Labs Labs: 11/15/18 11:25 11/15/18 11:25 - Constitutional Appears: Well, Non-toxic, No Acute Distress - Head Exam Head Exam: ATRAUMATIC, NORMAL INSPECTION, NORMOCEPHALIC - Eye Exam Eye Exam: EOMI. absent: Scleral icterus - ENT Exam Additional comments: nasal Canuli - Respiratory Exam Respiratory Exam: Decreased Breath Sounds (Severe). absent: Accessory Muscle Use, Rales, Rhonchi, Wheezes - Cardiovascular Exam Cardiovascular Exam: RRR, +S1, +S2 - GI/Abdominal Exam GI & Abdominal Exam: Soft. absent: Tenderness - Extremities Exam Extremities Exam: absent: Pedal Edema - Neurological Exam Neurological Exam: Alert, Awake, Oriented x3 - Psychiatric Exam Psychiatric exam: Normal Affect, Normal Mood - Skin Skin Exam: Dry, Intact, Normal Color, Warm Assessment and Plan - Assessment and Plan (Free Text) Assessment: 57 year old female with a PMHx COPD (3L Home 02)/Emphysema, Substance Abuse, Anemia, Anxiety, and Diabetes who was admitted for evaluation and treatment of COPD exacerbation. Also being treated for uncontrolled Diabetes. Plan: COPD Exacerbation Consults: Pulmonology (Dr. Ceja), Mgmt: Solumedrol 20mg Daily (Being Tapered from 20mg Q1H) Robitussin PRN for Cough Singulair 10mg PO HS Breo-Ellipta 1 puff RQD Albuterol 2.5mg IH Q6H [facility] MOxifloxacin 400mg Daily On Discharge patient should go home with Medrol Dose Pack DM II HgBA1C - 8.4 Mgmt: Started Lantus 5 HS (Patient was on this in the past) Metformin 850 BID, Increased from 500 BID Gabapentin 300mg PO BID [facility] Hypoglycemic Protocol Diabetic Consistent Diet. Diabetic Education Hepatitis C --Patient will need outpatient follow up for treatment. Anxiety/Depression/Hx of Substance Abuse Mgmt: Xanax 0.5mg PO TID PRN Lexapro 10mg PO Daily [facility] Atarax 25mg PO BID PRN Methadone 60mg PO Daily. Trazodone 100mg PO HS [facility]. Insomnia Mgmt: Ambien 5mg PO HS Hypokalemia Mgmt: 40meQ Klor-Con Daily Proph [facility] Dispo: Patient to be discharge today per Dr. Braden Rico. Discussed with Dr. Augustine James, PGY-2
[2018-11-18] MEDS: (Novolog) Insulin Aspart, Recombinant 100 u/ml 10 ml vial SC SCH ×3 (08:34→18:00)
[2018-11-18] MEDS: Potassium Chloride 10 mEq ER Tab PO SCH (08:40)
[2018-11-18] MEDS: MethylPREDNISolone 40 mg Vial IVP SCH (10:00)
[2018-11-18 11:30] LABS: BASO # 0.1 K/uL (0.0-0.2); BASO % 0.5 % (0.0-2.0); EOS % 0.2 % (0.0-4.0); HEMOGLOBIN 14.1 g/dL (11.0-16.0); LYMPH # 2.1 K/uL (1.0-4.3); MEAN CELL VOLUME 96.8 fL (81.0-99.0); MEAN CORPUSCULAR HEMOGLOBIN 33.2 pg (27.0-31.0); MEAN CORPUSCULAR HGB CONC 34.3 g/dL (33.0-37.0); MEAN PLATELET VOLUME 8.7 fL (7.2-11.7); MONO # 0.7 K/uL (0.0-0.8); MONO % 5.8 % (0.0-10.0); NEUT # 10.1 K/uL (1.8-7.0); NEUT % 77.5 % (50.0-75.0); NRBC % 0.1 % (0.0-2.0); RBC 4.23 Mil/uL (3.80-5.20); RED CELL DISTRIBUTION WIDTH 15.8 % (11.5-14.5)
[2018-11-18 11:49] LABS: ALB/GLOB RATIO 1.6 (1.0-2.1); ALBUMIN 3.2 g/dL (3.5-5.0); ALT/SGPT 57 U/L (9-52); AST/SGOT 43 U/L (14-36); BLOOD UREA NITROGEN 22 mg/dL (7-17); CALCIUM 8.7 mg/dl (8.6-10.4); GFR NON-AFRICAN AMERICAN > 60
[2018-11-18] MEDS: Moxifloxacin IV 400mg/250ml NS 400 MG/250 ML BAG IVPB SCH (16:17)
[2018-11-18 16:44] VITALS: BP 120/70; PULSE 112; RESP 20; TEMP 98.6
--- NOTE | 2018-11-18 17:21 | CP.PCM.PN ---
Subjective - Date & Time of Evaluation Date of Evaluation: 11/18/18 Time of Evaluation: 17:21 - Subjective Subjective: alert,orientedx3, denies sob or chest pains. Objective - Vital Signs/Intake and Output Vital Signs (last 24 hours): Temp Pulse Resp BP Pulse Ox 98.6 F 112 H 20 120/70 97 11/18/18 16:00 11/18/18 16:00 11/18/18 16:00 11/18/18 16:00 11/18/18 16:00 - Medications Medications: Current Medications Albuterol Sulfate (Albuterol 0.083% Inhal Maureen (2.5 Mg/3 Ml) Ud) 2.5 mg IH RQ6 [facility] Last Admin: 11/18/18 13:24 Dose: Not Given Alprazolam (Xanax) 0.5 mg PO TID PRN PRN Reason: Anxiety Last Admin: 11/17/18 22:06 Dose: 0.5 mg Dextrose (Dextrose 50% Inj) 0 ml IV STAT PRN; Protocol PRN Reason: Hypoglycemia Protocol Dextrose (Glutose 15) 0 gm PO ONCE PRN; Protocol PRN Reason: Hypoglycemia Protocol Docusate Sodium (Colace) 200 mg PO HS [facility] Last Admin: 11/17/18 22:06 Dose: 200 mg Escitalopram Oxalate (Lexapro) 10 mg PO DAILY [facility] Last Admin: 11/18/18 10:01 Dose: 10 mg Fluticasone/Vilanterol (Breo Ellipta 200-25 Mcg Inh) 1 puff INH RQD [facility] Gabapentin (Neurontin) 300 mg PO BID [facility] Last Admin: 11/18/18 10:10 Dose: 300 mg Glucagon (Glucagen Diagnostic Kit) 0 mg IM STAT PRN; Protocol PRN Reason: Hypoglycemia Protocol Guaifenesin (Robitussin) 100 mg PO Q4H [facility] Last Admin: 11/18/18 16:17 Dose: 100 mg Hydroxyzine HCl (Atarax) 25 mg PO BID PRN PRN Reason: Anxiety Moxifloxacin HCl (Avelox Iv 400mg/250ml Ns) 400 mg in 250 mls @ 167 mls/hr IVPB Q24H [facility]; Protocol Last Admin: 11/18/18 16:17 Dose: 167 mls/hr Insulin Aspart (Novolog) 0 unit SC ACHS [facility]; Protocol Last Admin: 11/18/18 12:04 Dose: 4 units Insulin Glargine (Lantus) 5 unit SC HS [facility] Metformin HCl (Glucophage) 850 mg PO BIDCC [facility] Methadone HCl (Methadone) 60 mg PO DAILY [facility] Last Admin: 11/18/18 10:10 Dose: 60 mg Methylprednisolone (Solu-Medrol) 20 mg IVP DAILY [facility] Montelukast Sodium (Singulair) 10 mg PO HS [facility] Last Admin: 11/17/18 22:06 Dose: 10 mg Potassium Chloride (Klor-Con 10) 40 meq PO BRK [facility] Last Admin: 11/18/18 08:40 Dose: 40 meq Trazodone HCl (Desyrel) 100 mg PO HS [facility] Last Admin: 11/17/18 22:06 Dose: 100 mg Zolpidem Tartrate (Ambien) 5 mg PO [facility] Last Admin: 11/17/18 22:35 Dose: Not Given - Labs Labs: 11/18/18 11:25 11/18/18 11:25 Assessment and Plan - Assessment and Plan (Free Text) Assessment: 57 year old female admitted with COPD exacerbation, DM, requiring insulin, non compliant , seen and examined. Alert and orientedx3, no acute distress, blood sugar under control. Discussed with DR Kavya Rico, plan to discharge home on metformin, advised to check her blood sugar daily. Rx given for xanax and m etformin. Advised to follow up in the office in 1 week.
--- NOTE | 2018-11-18 19:58 | CP.PCM.PN ---
Subjective - Date & Time of Evaluation Date of Evaluation: 11/18/18 Time of Evaluation: 09:15 - Subjective Subjective: clinically same Objective - Vital Signs/Intake and Output Vital Signs (last 24 hours): Temp Pulse Resp BP Pulse Ox 98.6 F 112 H 20 120/70 97 11/18/18 16:00 11/18/18 16:00 11/18/18 16:00 11/18/18 16:00 11/18/18 16:00 - Labs Labs: 11/18/18 11:25 11/18/18 11:25 - Constitutional Appears: Well - Head Exam Head Exam: ATRAUMATIC, NORMAL INSPECTION, NORMOCEPHALIC - Eye Exam Eye Exam: EOMI, Normal appearance, PERRL Pupil Exam: NORMAL ACCOMODATION, PERRL - ENT Exam ENT Exam: Mucous Membranes Moist, Normal Exam - Neck Exam Neck Exam: Full ROM, Normal Inspection. absent: Lymphadenopathy - Respiratory Exam Respiratory Exam: Decreased Breath Sounds - Cardiovascular Exam Cardiovascular Exam: REGULAR RHYTHM, +S1, +S2 - GI/Abdominal Exam GI & Abdominal Exam: Soft, Diminished Bowel Sounds - Rectal Exam Rectal Exam: Deferred
[2018-11-18] MEDS ORDERED: (Lantus) Insulin Glargine, Recombinant SC SCH (22:00)
[2018-11-19] MEDS ORDERED: MethylPREDNISolone 40 mg Vial IVP SCH (10:00)
[2018-11-21 08:32] VITALS: O2SAT 94
== END 2018-11-18 19:30 | disposition home or self-care (01) | DRG 88 ==
LOC: C.ER 08:56 → C.9E 11:50 → C.6T 14:23 → OBSVTOIN 11-13 12:32
PROVIDERS: ADMIT Internal Medicine Nephrology; ATTEND Internal Medicine Nephrology
PROC: 5A09557 Assistance with Respiratory Ventilation, Greater than 96 Consecutive Hours, Continuous Positive Airway Pressure (ICD-10-PCS; principal; 2018-11-10)
DX: J44.1 Chronic obstructive pulmonary disease with (acute) exacerbation (principal); J43.9 Emphysema, unspecified; E11.65 Type 2 diabetes mellitus with hyperglycemia; I10 Essential (primary) hypertension; Z79.4 Long term (current) use of insulin; Z90.01 Acquired absence of eye; Z91.19 Patient's noncompliance with other medical treatment and regimen; Z87.891 Personal history of nicotine dependence; J34.2 Deviated nasal septum; H91.93 Unspecified hearing loss, bilateral; H54.7 Unspecified visual loss

== ENCOUNTER 2018-11-24 14:37 | Inpatient (IN) | payer OTHER ==
[2018-11-24 14:42] VITALS: BMI 23.4
[2018-11-24] MEDS ORDERED: Sodium Chloride 0.9% 500 ML IV ONE (14:55)
[2018-11-24] MEDS ORDERED: Albuterol-Ipratrop 3 mg / 0.5 (3 ml) UD INH STA ×3 (14:58→17:19)
--- NOTE | 2018-11-24 15:00 | C.PDOC ---
History Of Present Illness 57 y/o female with copd, hospitalized for one month 10/24-11/13, returns to ed saying she can't breathe for a few days. pt sts she has no medicine for her nebulizer machine or inhlaers. no fever or chills. +cough Time Seen by Provider: 11/24/18 14:48 Chief Complaint (Nursing): Shortness Of Breath History Per: Patient History/Exam Limitations: no limitations Onset/Duration Of Symptoms: Days (3) Current Symptoms Are (Timing): Worse Initiating Event: Out Of Medications, Exposure To Smoke Reports Recently: Hospitalized Past Medical History Reviewed: Historical Data, Nursing Documentation, Vital Signs Vital Signs: Last Vital Signs Temp 98 F 11/24/18 14:41 Pulse 116 H 11/24/18 14:41 Resp 22 11/24/18 14:41 BP 142/93 H 11/24/18 14:41 Pulse Ox 97 11/24/18 14:41 - Medical History PMH: Anemia, Anxiety, Asthma, Bronchitis, Cardia Arrhythmia, COPD, Depression, Diabetes, Emphysema, HTN Denies: Chronic Kidney Disease, Seizures, Sexually Transmitted Disease, Sleep Apnea Surgical History: Back Surgery Denies: Coronary Stent, Pacemaker - [facility] Procedures APPLICATION OF SPLINT (12/18/03) ASSISTANCE WITH RESPIRATORY VENTILATION, 24-96 HRS, CPAP (02/01/17) ASSISTANCE WITH RESPIRATORY VENTILATION, <24 HRS, CPAP (02/27/18) ASSISTANCE WITH RESPIRATORY VENTILATION, >96 HRS, CPAP (11/13/18) DETOXIFICATION SERVICES FOR SUBSTANCE ABUSE TREATMENT (10/31/17) INDIV PSYCHOTHERAPY FOR SUBSTANCE ABUSE TREATMENT, SUPPORT (10/31/17) INDIV PSYCHOTHERAPY FOR SUBSTANCE ABUSE, PSYCHOEDUCATION (10/31/17) INDIVIDUAL PSYCHOTHERAPY, SUPPORTIVE (04/29/17) INJECT/INFUSE NEC (03/17/05) INSERTION OF ENDOTRACHEAL AIRWAY INTO TRACHEA, VIA OPENING (02/01/17) INSERTION OF INFUSION DEV INTO SUP VENA CAVA, PERC APPROACH (02/01/17) INTRODUCE OF OTH THERAP SUBST INTO RESP TRACT, VIA OPENING (01/23/17) INTRODUCE OF OXAZOLIDINONES INTO PERIPH VEIN, PERC APPROACH (02/01/17) MAGNETIC RESONANCE IMAGING OF SPINAL CANAL (07/19/98) RESPIRATORY VENTILATION, LESS THAN 24 CONSECUTIVE HOURS (02/01/17) TETANUS TOXOID ADMINIST (04/24/05) ULTRASONOGRAPHY OF LEFT UPPER EXTREMITY VEINS, GUIDANCE (02/01/17) Family History: States: Unknown Family Hx - Social History Hx Alcohol Use: No Hx Substance Use: Yes (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) - Immunization History Hx Tetanus Toxoid Vaccination: Yes Hx Influenza Vaccination: Yes Hx Pneumococcal Vaccination: Yes Review Of Systems Constitutional: Negative for: Fever, Chills Cardiovascular: Negative for: Chest Pain Respiratory: Positive for: Cough, Shortness of Breath, Wheezing Gastrointestinal: Negative for: Vomiting Skin: Negative for: Rash Neurological: Negative for: Weakness, Numbness Physical Exam - Physical Exam Appears: In Acute Distress (respiratory), Unkempt Skin: Warm, Dry, Other (multiple areas residual adhesive and irritation to right chest wall) Head: Atraumatic, Normacephalic Neck: No Midline Cervical Tenderness, No Paracervical Tenderness Chest: No Deformity, No Tenderness Cardiovascular: Rhythm Regular Respiratory: Decreased Breath Sounds, Accessory Muscle Use, Wheezing, Other (poor air movement) Gastrointestinal/Abdominal: Soft, No Tenderness, No Distention, No Guarding Neurological/Psych: Oriented x3, Normal Speech, Normal Cognition ED Course And Treatment - Laboratory Results Result Diagrams: 11/24/18 16:44 11/24/18 16:44 O2 Sat by Pulse Oximetry: 97 (on RA) Pulse Ox Interpretation: Normal - Other Rad CXR X-Ray: Interpreted by Me, Viewed By Me Interpretation: IMPRESSION: No active disease.No interval pathology noted. Medical Decision Making Medical Decision Making: Plan: EKG Blood Culture O2 via Nasal Cannula Duoneb 3mg/0.5mg INH Medrol 125mg IVP IV Fluids pt with sob, mild accessory muscle use and poor air movement and wheezing on exam. pt declines bi pap at this time. 1600 pt still with markedly decreased bs s/p one neb tx in ed. with accessory muscle use. another nebulizer treatment and biapap ordered though pt decleines bipap still. 1705 pt still declines bipap, vapotherm ordered. will admit to tele to Dr Braden Rico. 174 Dr Muñoz paged to discuses antibiotic choice for BIGG with pcn allergy [address] Muñoz, will start with Avelox Disposition Discussed With .: Augustine Rico Doctor Will See Patient In The: Hospital - Disposition Disposition: HOSPITALIZED Disposition Time: 17:10 Condition: SERIOUS - Clinical Impression Clinical Impression: Hypercapnia, Exacerbation of allergic asthma, COPD exacerbation - Scribe Statement The provider has reviewed the documentation as recorded by the Scribe
--- NOTE | 2018-11-24 15:26 | RAD ---
Date of service: 11/24/2018 PROCEDURE: CHEST RADIOGRAPH, 1 VIEW HISTORY: SOB COMPARISON: 11/10/2018 chest x-ray FINDINGS: LUNGS: Clear. No infiltrate seen. No pleural effusion Possible faint central and upper lobe emphysematous changes. PLEURA: No pneumothorax or pleural fluid seen. CARDIOVASCULAR: No aortic atherosclerotic calcification present. Heart size top normal. Pulmonary vasculature top-normal. OSSEOUS STRUCTURES: No significant abnormalities. VISUALIZED UPPER ABDOMEN: Normal. OTHER FINDINGS: None. IMPRESSION: No active disease.No interval pathology noted.
[2018-11-24] MEDS ORDERED: Sodium Chloride 0.9% 1,000 ML ONE (15:46)
[2018-11-24] MEDS ORDERED: Albuterol-Ipratrop 3 mg / 0.5 (3 ml) UD ONE ×3 (15:46→18:27)
[2018-11-24 16:20] LABS: VENOUS BLOOD GAS BASE EXCESS 2.7 mmol/L (0.0-2.0); VENOUS BLOOD GAS PCO2 71 mmHg (40-60); VENOUS BLOOD GAS PO2 208 mm/Hg (30-55); VENOUS BLOOD PH 7.26 (7.32-7.43)
[2018-11-24 16:58] LABS: BASO % 0.3 % (0.0-2.0); HEMOGLOBIN 14.9 g/dL (11.0-16.0); LYMPH # 0.8 K/uL (1.0-4.3); LYMPH % 5.9 % (20.0-40.0); MEAN CELL VOLUME 96.3 fL (81.0-99.0); MEAN CORPUSCULAR HEMOGLOBIN 32.1 pg (27.0-31.0); MEAN CORPUSCULAR HGB CONC 33.4 g/dL (33.0-37.0); MEAN PLATELET VOLUME 8.4 fL (7.2-11.7); MONO # 0.7 K/uL (0.0-0.8); MONO % 5.3 % (0.0-10.0); NEUT # 12.1 K/uL (1.8-7.0); NEUT % 88.5 % (50.0-75.0); NRBC % 0.1 % (0.0-2.0); RBC 4.63 Mil/uL (3.80-5.20); RED CELL DISTRIBUTION WIDTH 16.3 % (11.5-14.5); WHITE BLOOD COUNT 13.7 K/uL (4.8-10.8)
[2018-11-24 17:06] LABS: PLATELET COUNT 124 K/uL (130-400)
[2018-11-24 17:07] LABS: ALB/GLOB RATIO 1.5 (1.0-2.1); ALBUMIN 3.7 g/dL (3.5-5.0); ALT/SGPT 125 U/L (9-52); AST/SGOT 109 U/L (14-36); BLOOD UREA NITROGEN 18 mg/dL (7-17); CALCIUM 8.2 mg/dl (8.6-10.4); GFR NON-AFRICAN AMERICAN > 60
[2018-11-24 17:32] LABS: TOTAL CELLS COUNTED 100
[2018-11-24 17:34] LABS: ANISOCYTOSIS SLIGHT; BANDS 11 % (0-2); LYMPHOCYTE 9 % (20-40); MONOCYTE 5 % (0-10); NEUTROPHIL 74 % (50-75); PLATELET ESTIMATE NORMAL (NORMAL); REACTIVE LYMPHOCYTES 1 % (0-0)
[2018-11-24 17:46] LABS: BARBITURATES, UR NEGATIVE (NEGATIVE); OPIATES, UR NEGATIVE (NEGATIVE); PHENCYCLIDINE, UR NEGATIVE (NEGATIVE)
[2018-11-24 17:53] LABS: BENZODIAZEPINES, UR POSITIVE (NEGATIVE)
[2018-11-24] MEDS ORDERED: Moxifloxacin IV 400mg/250ml NS 400 MG/250 ML BAG IVPB ONE ×2 (18:11→18:21)
[2018-11-24] MEDS ORDERED: Aritificial Tears (15ml) OD PRN (18:35)
[2018-11-24] MEDS ORDERED: Albuterol HFA 90 mcg/actuation (8 g) IH PRN (18:35)
[2018-11-24] MEDS: Albuterol-Ipratrop 3 mg / 0.5 (3 ml) UD INH SCH (19:27)
[2018-11-24] MEDS: Moxifloxacin IV 400mg/250ml NS 400 MG/250 ML BAG IVPB SCH (20:28)
[2018-11-24] MEDS ORDERED: Home Med 1 UNIT (Melatonin [Melatonin] 5 MG) PO SCH (22:00)
[2018-11-25] MEDS: Albuterol-Ipratrop 3 mg / 0.5 (3 ml) UD INH SCH ×6 (00:21→21:05)
[2018-11-25] MEDS ORDERED: Fluticasone-Vilanterol 100/25mcg Diskus INH SCH (08:00)
[2018-11-25] MEDS: Methadone 40 mg Tab PO SCH (09:49)
[2018-11-25] MEDS ORDERED: Home Med 1 UNIT (Umeclidinium Bromide [Incruse Ellipta] 62.5 MCG) IH SCH (10:00)
--- NOTE | 2018-11-25 11:09 | CARD ---
APPROVED REPORT Date of service: 11/24/2018 EKG Measurement Heart [id number] <Conclusion> Sinus tachycardia Nonspecific ST and T wave abnormality Abnormal ECG
[2018-11-25] MEDS: (Novolin R) Insulin Human Regular 100 units/ml vial SC SCH ×2 (17:18→21:36)
[2018-11-25] MEDS: Moxifloxacin IV 400mg/250ml NS 400 MG/250 ML BAG IVPB SCH (19:27)
--- NOTE | 2018-11-25 19:41 | CP.PCM.HP ---
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) - SURGICAL HISTORY Hx Coronary Stent: No - ANESTHESIA Hx Anesthesia: Yes Hx Anesthesia Reactions: No Hx Malignant Hyperthermia: No Meds Allergies/Adverse Reactions: Allergies Allergy/AdvReac Type Severity Reaction Status Date / Time Penicillins Allergy ANAPHYLAXIS Verified 11/24/18 14:41 Physical Exam - Constitutional Appears: Well - Head Exam Head Exam: ATRAUMATIC, NORMAL INSPECTION, NORMOCEPHALIC - Eye Exam Eye Exam: EOMI, Normal appearance, PERRL Pupil Exam: NORMAL ACCOMODATION, PERRL - ENT Exam ENT Exam: Mucous Membranes Moist, Normal Exam - Neck Exam Neck exam: Positive for: Normal Inspection - Respiratory Exam Respiratory Exam: Decreased Breath Sounds - Cardiovascular Exam Cardiovascular Exam: REGULAR RHYTHM, +S1, +S2 - GI/Abdominal Exam GI & Abdominal Exam: Diminished Bowel Sounds, Soft - Rectal Exam Rectal Exam: Deferred Results - Vital Signs Recent Vital Signs: Last Vital Signs Temp 98.3 F 11/25/18 15:00 Pulse 113 H 11/25/18 15:00 Resp 18 11/25/18 15:00 BP 167/81 H 11/25/18 15:00 Pulse Ox 100 11/25/18 16:25 - Labs Result Diagrams: 11/24/18 16:44 11/24/18 16:44 Labs: Laboratory Results - last 24 hr 11/25/18 11/25/18 11/25/18 06:38 11:11 15:55 POC Glucose (mg/dL) 182 H 233 H 168 H
[2018-11-26] MEDS: Albuterol-Ipratrop 3 mg / 0.5 (3 ml) UD INH SCH ×6 (00:22→21:10)
[2018-11-26 07:58] LABS: BASO % 0.3 % (0.0-2.0); EOS # 0.1 K/uL (0.0-0.7); EOS % 0.5 % (0.0-4.0); HEMOGLOBIN 13.6 g/dL (11.0-16.0); LYMPH # 1.8 K/uL (1.0-4.3); LYMPH % 18.3 % (20.0-40.0); MEAN CELL VOLUME 96.9 fL (81.0-99.0); MEAN CORPUSCULAR HEMOGLOBIN 33.1 pg (27.0-31.0); MEAN CORPUSCULAR HGB CONC 34.1 g/dL (33.0-37.0); MEAN PLATELET VOLUME 8.6 fL (7.2-11.7); MONO % 9.9 % (0.0-10.0); RBC 4.11 Mil/uL (3.80-5.20); RED CELL DISTRIBUTION WIDTH 16.2 % (11.5-14.5); WHITE BLOOD COUNT 9.8 K/uL (4.8-10.8)
[2018-11-26] MEDS: (Novolin R) Insulin Human Regular 100 units/ml vial SC SCH ×4 (09:15→21:21)
[2018-11-26] MEDS: Methadone 40 mg Tab PO SCH (09:15)
[2018-11-26 09:28] LABS: ALB/GLOB RATIO 1.3 (1.0-2.1); ALBUMIN 3.2 g/dL (3.5-5.0); ALT/SGPT 89 U/L (9-52); AST/SGOT 59 U/L (14-36); BLOOD UREA NITROGEN 14 mg/dL (7-17); CALCIUM 8.7 mg/dl (8.6-10.4); GFR NON-AFRICAN AMERICAN > 60
--- NOTE | 2018-11-26 10:27 | CP.PCM.PN ---
Subjective - Date & Time of Evaluation Date of Evaluation: 11/26/18 - Subjective Subjective: c/o right sided chest pain on tylenol pt is on oxygen sitting in chair and sleeping easily woke up Objective - Vital Signs/Intake and Output Vital Signs (last 24 hours): Temp Pulse Resp BP Pulse Ox 98.3 F 106 H 20 148/87 100 11/26/18 07:00 11/26/18 07:00 11/26/18 07:59 11/26/18 07:00 11/26/18 07:00 Intake and Output: 11/26/18 11/26/18 06:59 18:59 Intake Total 800 Balance 800 - Medications Medications: Current Medications Acetaminophen (Tylenol 325mg Tab) 650 mg PO Q6 PRN PRN Reason: Pain, moderate (4-7) Last Admin: 11/26/18 06:45 Dose: 650 mg Albuterol (Ventolin Hfa 90 Mcg/Actuation (8 G)) 1 puff IH RQ6 PRN PRN Reason: Shortness of Breath Albuterol/Ipratropium (Duoneb 3 Mg/0.5 Mg (3 Ml) Ud) 3 ml INH RQ4 [facility] Last Admin: 11/26/18 07:59 Dose: 3 ml Alprazolam (Xanax) 0.25 mg PO TID PRN PRN Reason: Anxiety Stop: 12/01/18 18:36 Last Admin: 11/25/18 12:13 Dose: 0.25 mg Artificial Tears (Artificial Tears) 2 ml OD Q8H PRN PRN Reason: Dry eyes Docusate Sodium (Colace) 100 mg PO DAILY [facility] Last Admin: 11/26/18 09:17 Dose: 100 mg Escitalopram Oxalate (Lexapro) 10 mg PO DAILY [facility] Last Admin: 11/26/18 09:16 Dose: 10 mg Fluticasone/Vilanterol (Breo Ellipta 100-25 Mcg Inh) 1 puff INH RQ24 [facility] Gabapentin (Neurontin) 300 mg PO BID [facility] Last Admin: 11/26/18 09:16 Dose: 300 mg Hydroxyzine HCl (Atarax) 25 mg PO BID PRN PRN Reason: Anxiety Moxifloxacin HCl (Avelox Iv 400mg/250ml Ns) 400 mg in 250 mls @ 167 mls/hr IVPB Q24H [facility]; Protocol Last Admin: 11/25/18 19:27 Dose: 167 mls/hr Insulin Human Regular (Novolin R) 0 unit SC ACHS [facility]; Protocol Last Admin: 11/26/18 09:15 Dose: 1 unit Metformin HCl (Glucophage) 500 mg PO BID [facility] Last Admin: 11/26/18 09:19 Dose: Not Given Methadone HCl (Methadone) 20 mg PO DAILY [facility] Last Admin: 11/26/18 09:16 Dose: 20 mg Methadone HCl (Methadose) 40 mg PO DAILY [facility] Last Admin: 11/26/18 09:15 Dose: 40 mg Montelukast Sodium (Singulair) 10 mg PO HS [facility] Last Admin: 11/25/18 21:25 Dose: 10 mg Trazodone HCl (Desyrel) 100 mg PO HS [facility] Last Admin: 11/25/18 21:11 Dose: Not Given Zolpidem Tartrate (Ambien) 5 mg PO [facility] Last Admin: 11/25/18 21:12 Dose: Not Given - Labs Labs: 11/26/18 07:50 11/26/18 07:50 - Constitutional Appears: Well - Head Exam Head Exam: ATRAUMATIC, NORMAL INSPECTION, NORMOCEPHALIC - Eye Exam Eye Exam: EOMI, Normal appearance, PERRL Pupil Exam: NORMAL ACCOMODATION, PERRL - ENT Exam ENT Exam: Mucous Membranes Moist, Normal Exam - Neck Exam Neck Exam: Full ROM, Normal Inspection. absent: Lymphadenopathy - Respiratory Exam Respiratory Exam: Decreased Breath Sounds - Cardiovascular Exam Cardiovascular Exam: REGULAR RHYTHM, +S1, +S2 - GI/Abdominal Exam GI & Abdominal Exam: Soft, Diminished Bowel Sounds - Rectal Exam Rectal Exam: Deferred Assessment and Plan - Assessment and Plan (Free Text) Plan: patient examined today at bedside medications, labs and vitals reviewed ambien artificial tears atarax avelox Iv 400mg/250mg ml Ns breo ellipta 100-25 mcg inh colace desyrel duoneb 3mg/0.5mg 3ml ud glucophage lexapro methadone neurontin novolin R singulair tylenol 325mg tab ventolin hfa 90mcg/acutaion 8g xanax
[2018-11-26] MEDS: Moxifloxacin IV 400mg/250ml NS 400 MG/250 ML BAG IVPB SCH (19:50)
[2018-11-27] MEDS: Albuterol-Ipratrop 3 mg / 0.5 (3 ml) UD INH SCH ×4 (00:07→20:35)
[2018-11-27] MEDS: (Novolin R) Insulin Human Regular 100 units/ml vial SC SCH ×4 (08:35→22:18)
[2018-11-27 09:04] LABS: BASO % 0.3 % (0.0-2.0); EOS % 0.1 % (0.0-4.0); HEMOGLOBIN 13.7 g/dL (11.0-16.0); LYMPH # 1.1 K/uL (1.0-4.3); LYMPH % 9.2 % (20.0-40.0); MEAN CELL VOLUME 97.8 fL (81.0-99.0); MEAN CORPUSCULAR HEMOGLOBIN 33.1 pg (27.0-31.0); MEAN CORPUSCULAR HGB CONC 33.8 g/dL (33.0-37.0); MEAN PLATELET VOLUME 8.1 fL (7.2-11.7); MONO % 8.1 % (0.0-10.0); NEUT # 9.7 K/uL (1.8-7.0); NEUT % 82.3 % (50.0-75.0); PLATELET COUNT 139 K/uL (130-400); RBC 4.14 Mil/uL (3.80-5.20); RED CELL DISTRIBUTION WIDTH 15.8 % (11.5-14.5); WHITE BLOOD COUNT 11.8 K/uL (4.8-10.8)
[2018-11-27 09:40] LABS: ALB/GLOB RATIO 1.2 (1.0-2.1); ALBUMIN 3.3 g/dL (3.5-5.0); ALT/SGPT 77 U/L (9-52); AST/SGOT 56 U/L (14-36); BLOOD UREA NITROGEN 12 mg/dL (7-17); CALCIUM 8.2 mg/dl (8.6-10.4); GFR NON-AFRICAN AMERICAN > 60
[2018-11-27] MEDS ORDERED: cefTRIAXone IV 1 gm in Dextros 1 GM in Dextrose 5% In Water 50 ML IVPB STA (09:50)
[2018-11-27] MEDS ORDERED: Azithromycin 500mg/250ML NS 500 MG/250 ML BAG IVPB STA (09:52)
[2018-11-27] MEDS ORDERED: MethylPREDNISolone 40 mg Vial IVP STA (10:00)
[2018-11-27] MEDS ORDERED: Albuterol-Ipratrop 3 mg / 0.5 (3 ml) UD INH STA (10:00)
[2018-11-27] MEDS ORDERED: MethylPREDNISolone 40 mg Vial IV STA (10:07)
--- NOTE | 2018-11-27 10:10 | PCM.RRT ---
<Pepito Parmar - Last Filed: 11/27/18 18:15> INDUSTRIAL RELATIONS WORKER Nurses Assessment - Situation Date: 11/27/18 Time INDUSTRIAL RELATIONS WORKER was called: 09:58 INDUSTRIAL RELATIONS WORKER Responder Arrival Time:: 09:59 INDUSTRIAL RELATIONS WORKER Location:: Med/Surg INDUSTRIAL RELATIONS WORKER Reason for Call: Respiratory Distress INDUSTRIAL RELATIONS WORKER Called By: RN - IV IV Inserted during INDUSTRIAL RELATIONS WORKER?: No - Ventilator Settings FIO2 (% Oxygen): 100 - Constitutional Appears: In Acute Distress, Unkempt, Older Than Stated Age, Chronically Ill - Head Head Exam: ATRAUMATIC, NORMAL INSPECTION - Eyes Eye Exam: Normal appearance, PERRL. absent: Periorbital tenderness - Respiratory Exam Respiratory Exam: Decreased Breath Sounds Additional comments: bilaterally decreased breath sounds - Cardiovascular Exam Cardiovascular Exam: Tachycardia, +S1, +S2 - GI/Abdominal Exam GI & Abdominal Exam: Soft, Normal Bowel Sounds. absent: Hyperactive Bowel Sounds - Neurological Exam Neurological Exam: Alert, Awake, Oriented x3 Plan - Assessment of Findings&Treatment Plan 57 year old female with a past medical history of hypertension, copd, diabetes and substance abuse with respiratory distress. Plan: CXR EKG ABG with shock panel GI pro-BNP Neuro checks q4 BIPAP Methadone held UDS ICU Evaluation Duoneb stat Solumedrol 125mg IVP STAT Dispo: Primary consulted. Dr. Nicki Rico recommending ICU evaluation, Rocephin , Azithromycin. Plan discussed with Attending Dr. Rios. Pepito Parmar, PGY-2 <Iasbel Rios V - Last Filed: 11/27/18 19:38> INDUSTRIAL RELATIONS WORKER Nurses Assessment - Vital Signs Vital Signs: Rapid Response Vital Sign Blood Pressure 159/95 Pulse Rate 126 Respiratory Rate 20 Oxygen Saturation 99 - Vital Signs at end of INDUSTRIAL RELATIONS WORKER Vital Signs at end of INDUSTRIAL RELATIONS WORKER: Rapid Response End Vital Sign Blood Pressure 146/79 Pulse Rate 103 Respiratory Rate 20 O2 Sat by Pulse Oximetry 96 Attending/Attestation - Attestation I have personally seen and examined this patient.: Yes I have fully participated in the care of the patient.: Yes I have reviewed all pertinent clinical information, including history, physical exam and plan: Yes Notes (Text): Brief hospitalist note INDUSTRIAL RELATIONS WORKER called for acute respiratory distress Patient is a 57-year-old female history of opiate use currently on methadone, COPD nursing concern for respiratory distress patient seen awake and alert turning her back to the sliding that she cannot. Vital signs 90 for 96% on room air. Chest x-ray taken at the time of rapid no new infiltrate he shows improvement compared to prior chest x-ray however I do suspect there is an element of COPD. Patient was previously not on any steroids I did indicate for a DuoNeb treatment stat Solu-Medrol 125 mg IV push x1 as well as Solu-Medrol 40 mg IV q. 8. Discussed with both nursing and respiratory therapist movement with the patient patient has been refusing BiPAP for the past couple days patient was initially seen with a basal thermometer. Noted labs from this morning white count 1.8 which is improving however CO2 41 ABG taken at time of problem did indicate that likely she will need she will need to be using BiPAP. Reviewed medications held off of sedative medications including but not limited to Xanax, gabapentin, Lexapro, methadone, trazodone, Ambien,. To note improvement in status as well Lethargy. PMD Dr. Kavya Rico had recommended for Rocephin and azithromycin in ICU eval and pulmonary consult. Discussed case with Dr. krueger who is covering ICU today who also came to evaluate the patient at time of BiPAP advised nursing staff to not give Xanax and sleep medication benzo the patient is on methadone advise patient not receiving these medications by mouth for at least one day until mental status improves. Patient was reevaluated in the afternoon by myself she is more awake and alert on BiPAP about to eat dinner. Noted repeat UDS confirms methadone and benzos which she is receiving in hospitalization today.
--- NOTE | 2018-11-27 10:42 | RAD ---
Date of service: 11/27/2018 HISTORY: sob COMPARISON: Comparison is made with 11/24/2018 TECHNIQUE: 1 view obtained. FINDINGS: LUNGS: No evidence of new infiltrate or consolidation in the lungs. Interval slight improvement in the lungs since the previous exam. PLEURA: No significant pleural effusion identified, no pneumothorax apparent. CARDIOVASCULAR: No aortic atherosclerotic calcification present. Normal cardiac size. No pulmonary vascular congestion. OSSEOUS STRUCTURES: No significant abnormalities. VISUALIZED UPPER ABDOMEN: Normal. OTHER FINDINGS: None. IMPRESSION: Interval mild improvement in the lungs since the previous exam.
[2018-11-27 10:53] LABS: B-TYPE NATRIURETIC PEPTIDE 171 pg/mL (0-900); CK-MB 0.88 ng/mL (0.0-3.38)
[2018-11-27 10:56] LABS: BARBITURATES, UR NEGATIVE (NEGATIVE); OPIATES, UR NEGATIVE (NEGATIVE); PHENCYCLIDINE, UR NEGATIVE (NEGATIVE)
[2018-11-27 10:58] LABS: BANDS 4 % (0-2); LYMPHOCYTE 8 % (20-40); MONOCYTE 10 % (0-10); NEUTROPHIL 78 % (50-75); PLATELET ESTIMATE NORMAL (NORMAL); TOTAL CELLS COUNTED 100
[2018-11-27 10:59] LABS: ANISOCYTOSIS SLIGHT
[2018-11-27 10:59] LABS: BENZODIAZEPINES, UR POSITIVE (NEGATIVE)
[2018-11-27] MEDS: Methadone 40 mg Tab PO SCH (11:00)
--- NOTE | 2018-11-27 14:14 | CP.PCM.PN ---
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 pt recewived xanax ambien adn methadone Objective - Vital Signs/Intake and Output Vital Signs (last 24 hours): Temp Pulse Resp BP Pulse Ox 98.3 F 122 H 18 144/73 99 11/27/18 07:00 11/27/18 08:30 11/27/18 08:30 11/27/18 08:30 11/27/18 08:30 Intake and Output: 11/27/18 11/27/18 06:59 18:59 Intake Total 250 Balance 250 - Medications Medications: Current Medications Acetaminophen (Tylenol 325mg Tab) 650 mg PO Q6 PRN PRN Reason: Pain, moderate (4-7) Last Admin: 11/26/18 06:45 Dose: 650 mg Albuterol (Ventolin Hfa 90 Mcg/Actuation (8 G)) 1 puff IH RQ6 PRN PRN Reason: Shortness of Breath Albuterol/Ipratropium (Duoneb 3 Mg/0.5 Mg (3 Ml) Ud) 3 ml INH RQ4 [facility] Last Admin: 11/27/18 04:43 Dose: 3 ml Alprazolam (Xanax) 0.25 mg PO TID PRN PRN Reason: Anxiety Stop: 12/01/18 18:36 Last Admin: 11/27/18 07:55 Dose: 0.25 mg Artificial Tears (Artificial Tears) 2 ml OD Q8H PRN PRN Reason: Dry eyes Docusate Sodium (Colace) 100 mg PO DAILY [facility] Last Admin: 11/27/18 10:59 Dose: Not Given Escitalopram Oxalate (Lexapro) 10 mg PO DAILY [facility] Last Admin: 11/27/18 11:00 Dose: Not Given Fluticasone/Vilanterol (Breo Ellipta 100-25 Mcg Inh) 1 puff INH RQ24 [facility] Gabapentin (Neurontin) 300 mg PO BID [facility] Last Admin: 11/27/18 11:00 Dose: Not Given Hydroxyzine HCl (Atarax) 25 mg PO BID PRN PRN Reason: Anxiety Moxifloxacin HCl (Avelox Iv 400mg/250ml Ns) 400 mg in 250 mls @ 167 mls/hr IVPB Q24H [facility]; Protocol Last Admin: 11/26/18 19:50 Dose: 167 mls/hr Insulin Human Regular (Novolin R) 0 unit SC ACHS [facility]; Protocol Last Admin: 11/27/18 13:02 Dose: Not Given Metformin HCl (Glucophage) 500 mg PO BID [facility] Last Admin: 11/27/18 11:00 Dose: Not Given Methadone HCl (Methadone) 20 mg PO DAILY [facility] Last Admin: 11/27/18 11:00 Dose: Not Given Methadone HCl (Methadose) 40 mg PO DAILY [facility] Last Admin: 11/27/18 11:00 Dose: Not Given Montelukast Sodium (Singulair) 10 mg PO [facility] Last Admin: 11/26/18 22:11 Dose: 10 mg Trazodone HCl (Desyrel) 100 mg PO [facility] Last Admin: 11/26/18 21:19 Dose: Not Given Zolpidem Tartrate (Ambien) 5 mg PO [facility] Last Admin: 11/26/18 21:20 Dose: Not Given - Labs Labs: 11/27/18 08:52 11/27/18 08:52 - Constitutional Appears: Well - Head Exam Head Exam: ATRAUMATIC, NORMAL INSPECTION, NORMOCEPHALIC - Eye Exam Eye Exam: EOMI, Normal appearance, PERRL Pupil Exam: NORMAL ACCOMODATION, PERRL - ENT Exam ENT Exam: Mucous Membranes Moist, Normal Exam - Neck Exam Neck Exam: Full ROM, Normal Inspection. absent: Lymphadenopathy - Respiratory Exam Respiratory Exam: Decreased Breath Sounds - Cardiovascular Exam Cardiovascular Exam: REGULAR RHYTHM, +S1, +S2 - GI/Abdominal Exam GI & Abdominal Exam: Soft, Diminished Bowel Sounds - Rectal Exam Rectal Exam: Deferred Assessment and Plan - Assessment and Plan (Free Text) Plan: chest xray reviewed labs reviewed vitals reviewed medications reviewed ambien artificial tears atarax avelox iv 400mg/250ml ns breo ellipta 100-25mcg inh colace desyrel duoneb 3mg/0.5mg 3ml ud glucophage lexapro methadone neurontin novolin R singulair tylenol 325mg tab ventolin hfa 90 mcg/actuation 8g xanax
[2018-11-27 14:36] LABS: ABG ALLEN TEST POS; ARTERIAL BLOOD GAS HCO3 37.6 mmol/L (21-28); ARTERIAL BLOOD GAS O2 SAT 99.4 % (95-98); ARTERIAL BLOOD GAS PCO2 51 mm/Hg (35-45); ARTERIAL BLOOD GAS PH 7.52 (7.35-7.45); ARTERIAL BLOOD GAS PO2 214 mm/Hg (80-100); ARTERIAL BLOOD GAS TCO2 43.2 mmol/L (22-28)
[2018-11-27] MEDS: Dextrose 5%/0.9% NS 1,000 ML IV SCH (15:52)
[2018-11-27] MEDS: Enoxaparin 40 mg Syringe SC SCH (18:49)
[2018-11-27] MEDS: Moxifloxacin IV 400mg/250ml NS 400 MG/250 ML BAG IVPB SCH (20:08)
[2018-11-28] MEDS: Albuterol-Ipratrop 3 mg / 0.5 (3 ml) UD INH SCH ×7 (01:20→19:10)
[2018-11-28] MEDS: (Novolin R) Insulin Human Regular 100 units/ml vial SC SCH ×4 (08:12→21:19)
[2018-11-28 08:39] LABS: EOS % 0.1 % (0.0-4.0); HEMOGLOBIN 12.3 g/dL (11.0-16.0); MEAN PLATELET VOLUME 7.9 fL (7.2-11.7); MONO # 0.6 K/uL (0.0-0.8); MONO % 8.5 % (0.0-10.0); NEUT # 5.4 K/uL (1.8-7.0); RBC 3.71 Mil/uL (3.80-5.20)
[2018-11-28 08:45] LABS: BASO % 0.2 % (0.0-2.0); LYMPH % 14.7 % (20.0-40.0); MEAN CORPUSCULAR HEMOGLOBIN 33.2 pg (27.0-31.0); MEAN CORPUSCULAR HGB CONC 34.7 g/dL (33.0-37.0); NEUT % 76.5 % (50.0-75.0); RED CELL DISTRIBUTION WIDTH 15.3 % (11.5-14.5)
[2018-11-28 08:47] LABS: MEAN CELL VOLUME 96.1 fL (81.0-99.0)
[2018-11-28 09:09] LABS: ALB/GLOB RATIO 1.3 (1.0-2.1); ALBUMIN 3.1 g/dL (3.5-5.0); ALT/SGPT 70 U/L (9-52); AST/SGOT 38 U/L (14-36); BLOOD UREA NITROGEN 13 mg/dL (7-17); CALCIUM 8.1 mg/dl (8.6-10.4); GFR NON-AFRICAN AMERICAN > 60
[2018-11-28] MEDS: Enoxaparin 40 mg Syringe SC SCH (10:00)
[2018-11-28] MEDS ORDERED: Potassium Chloride 20 mEq ER Tab PO ONE (15:00)
--- NOTE | 2018-11-28 16:05 | CP.PCM.PN ---
Subjective - Date & Time of Evaluation Date of Evaluation: 11/28/18 Time of Evaluation: 09:00 - Subjective Subjective: patient was seen and examined today no nausea, no vomiting, no diarrhea, no fever, no shortness of breath wide awake alert pt wants methadone 60mg po daily but was drowsy yeterday so decided to hold and seek psych consult Objective - Vital Signs/Intake and Output Vital Signs (last 24 hours): Temp Pulse Resp BP Pulse Ox 98.0 F 82 18 131/90 97 11/28/18 15:00 11/28/18 15:53 11/28/18 15:00 11/28/18 15:00 11/28/18 15:00 Intake and Output: 11/28/18 11/28/18 06:59 18:59 Intake Total 920 320 Output Total 800 Balance 920 -480 - Medications Medications: Current Medications Acetaminophen (Tylenol 325mg Tab) 650 mg PO Q6 PRN PRN Reason: Pain, moderate (4-7) Last Admin: 11/26/18 06:45 Dose: 650 mg Albuterol (Ventolin Hfa 90 Mcg/Actuation (8 G)) 1 puff IH RQ6 PRN PRN Reason: Shortness of Breath Albuterol/Ipratropium (Duoneb 3 Mg/0.5 Mg (3 Ml) Ud) 3 ml INH RQ4 [facility] Last Admin: 11/28/18 11:36 Dose: 3 ml Artificial Tears (Artificial Tears) 2 ml OD Q8H PRN PRN Reason: Dry eyes Docusate Sodium (Colace) 100 mg PO DAILY [facility] Last Admin: 11/28/18 10:00 Dose: 100 mg Enoxaparin Sodium (Lovenox) 40 mg SC DAILY [facility] Last Admin: 11/28/18 10:00 Dose: Not Given Escitalopram Oxalate (Lexapro) 10 mg PO DAILY [facility] Last Admin: 11/28/18 10:00 Dose: 10 mg Fluticasone/Vilanterol (Breo Ellipta 100-25 Mcg Inh) 1 puff INH RQ24 [facility] Gabapentin (Neurontin) 300 mg PO BID [facility] Last Admin: 11/27/18 11:00 Dose: Not Given Hydroxyzine HCl (Atarax) 25 mg PO BID PRN PRN Reason: Anxiety Moxifloxacin HCl (Avelox Iv 400mg/250ml Ns) 400 mg in 250 mls @ 167 mls/hr IVPB Q24H [facility]; Protocol Last Admin: 11/27/18 20:08 Dose: 167 mls/hr Dextrose/Sodium Chloride (Dextrose 5%/0.9% Ns 1000 Ml) 1,000 mls @ 40 mls/hr IV .Q24H [facility] Last Admin: 11/27/18 15:52 Dose: 40 mls/hr Insulin Human Regular (Novolin R) 0 unit SC ACHS [facility]; Protocol Last Admin: 11/28/18 12:16 Dose: 3 unit Metformin HCl (Glucophage) 500 mg PO BID [facility] Last Admin: 11/28/18 10:00 Dose: Not Given Methadone HCl (Methadone) 20 mg PO DAILY [facility] Last Admin: 11/27/18 11:00 Dose: Not Given Methadone HCl (Methadose) 40 mg PO DAILY [facility] Last Admin: 11/27/18 11:00 Dose: Not Given Montelukast Sodium (Singulair) 10 mg PO [facility] Last Admin: 11/27/18 21:38 Dose: 10 mg Trazodone HCl (Desyrel) 100 mg PO [facility] Last Admin: 11/26/18 21:19 Dose: Not Given - Labs Labs: 11/28/18 08:25 11/28/18 08:25 - Constitutional Appears: Well - Head Exam Head Exam: ATRAUMATIC, NORMAL INSPECTION, NORMOCEPHALIC - Eye Exam Eye Exam: EOMI, Normal appearance, PERRL Pupil Exam: NORMAL ACCOMODATION, PERRL - ENT Exam ENT Exam: Mucous Membranes Moist, Normal Exam - Neck Exam Neck Exam: Full ROM, Normal Inspection. absent: Lymphadenopathy - Respiratory Exam Respiratory Exam: Decreased Breath Sounds - Cardiovascular Exam Cardiovascular Exam: REGULAR RHYTHM, +S1, +S2 - GI/Abdominal Exam GI & Abdominal Exam: Diminished Bowel Sounds - Rectal Exam Rectal Exam: Deferred Assessment and Plan - Assessment and Plan (Free Text) Plan: medications reviewed labs reviewed vitals reviewed Artificial tears Atarax Avelox Baker lift Colace Restoril Dextrose DuoNeb Glucose H Lexapro's Lovenox Methadone Neurontin Novolin R Singulair Tylenol 3 25 mg tablet Ventolin kcl supplementation monitor hco2 whic is 46 other labs seen d.w staff on oxygen more alrt noelle pt has decided to eat
[2018-11-28] MEDS ORDERED: Potassium Chloride 20 mEq ER Tab PO STA (16:10)
[2018-11-28] MEDS: Dextrose 5%/0.9% NS 1,000 ML IV SCH (16:39)
--- NOTE | 2018-11-28 18:43 | CP.PCM.CON ---
History of Present Illness - History of Present Illness History of Present Illness: 57 year old female with history of COPD, substance abuse on methadone 60mg, hypertension and anemia presented to ED complaining of shortness of breath, nonproductive cough, and chest pain. She has presented to the ED multiple times with similar complaints and was recently admitted for hypercapnic respiratory failure. She denies fever, chills, abdominal pain, nausea, or vomiting. Patient was seen at bedside, awake, responsive receiving nebulizer treatment. PMHx: COPD, HTN, DM PSHx: back surgery Meds: as per EMR Social: denies alcohol, is a smoker, reports IV heroin abuse Allergies: penicillin ROS: as reviewed in HPI PE HEENT: Atraumatic, normocephalic, moist mucous membranes, normal neck inspection Respiratory: decreased breath sounds bilaterally Cardiovascular: regular rate and rhythm GI/abdominal: normoactive bowel sounds Extremities: no pedal edema Neurologic: alert Assessment/Plan 1. COPD exacerbation Continue nebulizer treatment and inhaled corticosteriods Analgesics for chest pain BIPAP METHADONE Past Patient History - Infectious Disease Hx of Infectious Diseases: None - Tetanus Immunizations Tetanus Immunization: Unknown - Past Medical History & Family History Past Medical History?: Yes - Past Social History Smoking Status: Former Smoker - CARDIAC Hx Cardia Arrhythmia: Yes Hx Hypertension: Yes Hx Pacemaker: No - PULMONARY Hx Respiratory Disorders: Yes Hx Asthma: Yes Hx Bronchitis: Yes Hx Chronic Obstructive Pulmonary Disease (COPD): Yes Hx Emphysema: Yes Hx Sleep Apnea: No - NEUROLOGICAL Hx Neurological Disorder: No Hx Seizures: No - HEENT Hx HEENT Problems: 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 - RENAL Hx Chronic Kidney Disease: No - ENDOCRINE/METABOLIC Hx Endocrine Disorders: Yes Hx Diabetes Mellitus Type 2: Yes - HEMATOLOGICAL/ONCOLOGICAL Hx Blood Disorders: Yes Hx Anemia: Yes - INTEGUMENTARY Hx Dermatological Problems: No - MUSCULOSKELETAL/RHEUMATOLOGICAL Hx Falls: No - GASTROINTESTINAL Hx Gastrointestinal Disorders: Yes (constipation at times) - GENITOURINARY/GYNECOLOGICAL Hx Genitourinary Disorders: No Hx Sexually Transmitted Disorders: No - PSYCHIATRIC Hx Psychophysiologic Disorder: Yes Hx Substance Use: Yes - SURGICAL HISTORY Hx Surgeries: No Hx Coronary Stent: No - ANESTHESIA Hx Anesthesia: Yes Hx Anesthesia Reactions: No Hx Malignant Hyperthermia: No Meds Allergies/Adverse Reactions: Allergies Allergy/AdvReac Type Severity Reaction Status Date / Time Penicillins Allergy ANAPHYLAXIS Verified 11/24/18 14:41 - Medications Medications: Current Medications Acetaminophen (Tylenol 325mg Tab) 650 mg PO Q6 PRN PRN Reason: Pain, moderate (4-7) Last Admin: 11/26/18 06:45 Dose: 650 mg Albuterol (Ventolin Hfa 90 Mcg/Actuation (8 G)) 1 puff IH RQ6 PRN PRN Reason: Shortness of Breath Albuterol/Ipratropium (Duoneb 3 Mg/0.5 Mg (3 Ml) Ud) 3 ml INH RQ4 [facility] Last Admin: 11/28/18 11:36 Dose: 3 ml Artificial Tears (Artificial Tears) 2 ml OD Q8H PRN PRN Reason: Dry eyes Docusate Sodium (Colace) 100 mg PO DAILY [facility] Last Admin: 11/28/18 10:00 Dose: 100 mg Enoxaparin Sodium (Lovenox) 40 mg SC DAILY [facility] Last Admin: 11/28/18 10:00 Dose: Not Given Escitalopram Oxalate (Lexapro) 10 mg PO DAILY [facility] Last Admin: 11/28/18 10:00 Dose: 10 mg Fluticasone/Vilanterol (Breo Ellipta 100-25 Mcg Inh) 1 puff INH RQ24 [facility] Gabapentin (Neurontin) 300 mg PO BID [facility] Last Admin: 11/27/18 11:00 Dose: Not Given Hydroxyzine HCl (Atarax) 25 mg PO BID PRN PRN Reason: Anxiety Moxifloxacin HCl (Avelox Iv 400mg/250ml Ns) 400 mg in 250 mls @ 167 mls/hr IVPB Q24H [facility]; Protocol Last Admin: 11/27/18 20:08 Dose: 167 mls/hr Dextrose/Sodium Chloride (Dextrose 5%/0.9% Ns 1000 Ml) 1,000 mls @ 40 mls/hr IV .Q24H [facility] Last Admin: 11/28/18 16:39 Dose: Not Given Insulin Human Regular (Novolin R) 0 unit SC ACHS [facility]; Protocol Last Admin: 11/28/18 16:38 Dose: 1 unit Metformin HCl (Glucophage) 500 mg PO BID [facility] Last Admin: 11/28/18 17:04 Dose: Not Given Methadone HCl (Methadone) 20 mg PO DAILY [facility] Last Admin: 11/27/18 11:00 Dose: Not Given Methadone HCl (Methadose) 40 mg PO DAILY [facility] Last Admin: 11/27/18 11:00 Dose: Not Given Montelukast Sodium (Singulair) 10 mg PO [facility] Last Admin: 11/27/18 21:38 Dose: 10 mg Trazodone HCl (Desyrel) 100 mg PO [facility] Last Admin: 11/26/18 21:19 Dose: Not Given Results - Vital Signs Recent Vital Signs: Last Vital Signs Temp 98.1 F 11/28/18 18:15 Pulse 105 H 11/28/18 18:15 Resp 20 11/28/18 18:15 BP 149/79 11/28/18 18:15 Pulse Ox 97 11/28/18 18:15 - Labs Result Diagrams: 11/28/18 08:25 11/28/18 08:25 Labs: Laboratory Results - last 24 hr 11/27/18 11/28/18 11/28/18 21:47 06:40 08:25 WBC 7.0 RBC 3.71 L Hgb 12.3 Hct 35.5 MCV 96.1 MCH 33.2 H MCHC 34.7 RDW 15.3 H Plt Count 111 L D MPV 7.9 Neut % (Auto) 76.5 H Lymph % (Auto) 14.7 L [place] % (Auto) 8.5 Eos % (Auto) 0.1 Baso % (Auto) 0.2 Neut # (Auto) 5.4 Lymph # (Auto) 1.0 [place] # (Auto) 0.6 Eos # (Auto) 0.0 Baso # (Auto) 0.0 Differential Comment Sodium Potassium Chloride Carbon Dioxide Anion Gap BUN Creatinine Est GFR ( Amer) Est GFR (Non-Af Amer) POC Glucose (mg/dL) 247 H 144 H Random Glucose Calcium Total Bilirubin AST ALT Alkaline Phosphatase Total Protein Albumin Globulin Albumin/Globulin Ratio 11/28/18 11/28/18 11/28/18 08:25 10:59 15:55 WBC RBC Hgb Hct MCV MCH MCHC RDW Plt Count MPV Neut % (Auto) Lymph % (Auto) [place] % (Auto) Eos % (Auto) Baso % (Auto) Neut # (Auto) Lymph # (Auto) [place] # (Auto) Eos # (Auto) Baso # (Auto) Differential Comment Sodium 137 Potassium 3.5 L Chloride 92 L Carbon Dioxide 46 H* Anion Gap 3 L BUN 13 Creatinine 0.3 L Est GFR ( Amer) > 60 Est GFR (Non-Af Amer) > 60 POC Glucose (mg/dL) 282 H 197 H Random Glucose 152 H Calcium 8.1 L Total Bilirubin 0.9 AST 38 H D ALT 70 H Alkaline Phosphatase 60 Total Protein 5.6 L Albumin 3.1 L Globulin 2.4 Albumin/Globulin Ratio 1.3
[2018-11-28] MEDS: Moxifloxacin IV 400mg/250ml NS 400 MG/250 ML BAG IVPB SCH (19:19)
[2018-11-29] MEDS: Albuterol-Ipratrop 3 mg / 0.5 (3 ml) UD INH SCH ×6 (00:34→19:20)
[2018-11-29] MEDS: Dextrose 5%/0.9% NS 1,000 ML IV SCH ×2 (03:37→16:33)
[2018-11-29] MEDS: Enoxaparin 40 mg Syringe SC SCH (10:23)
[2018-11-29] MEDS: (Novolin R) Insulin Human Regular 100 units/ml vial SC SCH ×5 (10:23→22:19)
--- NOTE | 2018-11-29 13:51 | PCM.PSYCH ---
Initial Psychiatric Evaluation - Initial Psychiatric Evaluation Type of Admission: Voluntary Legal Status: Capacity Chief Complaint (in patient's own words): "not good" History of Present Illness and Precipitating Events: PGY-1 Psych consult note for Dr Reyes service Reason for consult: Heroin use, Methadone tx Patient is a 57 yo female who is single, lives with two daughters and son in an apartment, currently unemployed. Pt is admitted to the hospital for COPD exacerbation and dyspnea. Patient refuses to speak about drug use and hx. At first patient denied using heroin, however, later she states she uses heroin, but will answer "I dont know" for most questions regarding drug route, number of bags, and years of drug use. as per chart review, Pt has a hx of heroin abuse for the past 5-6 years and was using 20 bags/day IV. The pt has been on 60 mg methadone maintenance from [facility] in the past, however patient is not able to confirm how much methadone she takes or if she is currently receiving treatment. Pt denies current alcohol or other drug use. Pt has been to detox multiple times. Patient denies any suicidal or homicidal ideation. Patient remains quiet for most of the questions during this encounter. Patient did not answer specific questions regarding withdrawal symptoms from heroin use. Past Psych history: (as per chart check) Depression, Panic attack, suicide attempt via pill overdose in her 20s Past medical hx: Hep C, COPD, emphysema All: Penicillin Family psyc hx: multiple family members have drug abuse issues Meds: Methadone 60mg, liquid form, daily (confirmed with [facility], last time med received was 11/22) Current Medications: Active Medications Generic Name Dose Route Start Last Admin Trade Name Freq PRN Reason Stop Dose Admin Acetaminophen 650 mg 11/25/18 21:42 11/29/18 06:38 Tylenol 325mg Tab PO 650 mg Q6 PRN Administration Pain, moderate (4-7) Albuterol 1 puff 11/24/18 18:35 Ventolin Hfa 90 Mcg/Actuation (8 G) IH RQ6 PRN Shortness of Breath Albuterol/Ipratropium 3 ml 11/24/18 20:00 11/29/18 11:25 Duoneb 3 Mg/0.5 Mg (3 Ml) Ud INH 3 ml RQ4 [facility] Administration Artificial Tears 2 ml 11/24/18 18:35 Artificial Tears OD Q8H PRN Dry eyes Docusate Sodium 100 mg 11/25/18 10:00 11/29/18 10:23 Colace PO 100 mg DAILY [facility] Administration Enoxaparin Sodium 40 mg 11/27/18 18:00 11/29/18 10:23 Lovenox SC 40 mg DAILY [facility] Administration Escitalopram Oxalate 10 mg 11/25/18 10:00 11/29/18 10:23 Lexapro PO 10 mg DAILY [facility] Administration Fluticasone/Vilanterol 1 puff 11/25/18 08:00 Breo Ellipta 100-25 Mcg Inh INH RQ24 [facility] Gabapentin 300 mg 11/24/18 18:45 11/27/18 11:00 Neurontin PO Not Given BID [facility] Hydroxyzine HCl 25 mg 11/24/18 18:35 Atarax PO BID PRN Anxiety Moxifloxacin HCl 400 mg in 250 mls @ 167 mls/hr 11/24/18 20:00 11/28/18 19:19 Avelox Iv 400mg/250ml Ns IVPB 167 mls/hr Q24H [facility] Administration Protocol Dextrose/Sodium Chloride 1,000 mls @ 40 mls/hr 11/27/18 16:00 11/29/18 03:37 Dextrose 5%/0.9% Ns 1000 Ml IV 40 mls/hr .Q24H [facility] Administration Insulin Human Regular 0 unit 11/25/18 16:30 11/29/18 10:27 Novolin R SC Not Given ACHS [facility] Protocol Metformin HCl 500 mg 11/25/18 10:00 11/29/18 10:28 Glucophage PO Not Given BID [facility] Methadone HCl 20 mg 11/25/18 10:00 11/27/18 11:00 Methadone PO Not Given DAILY [facility] Methadone HCl 40 mg 11/25/18 10:00 11/27/18 11:00 Methadose PO Not Given DAILY [facility] Montelukast Sodium 10 mg 11/24/18 22:00 11/28/18 21:13 Singulair PO 10 mg HS [facility] Administration Trazodone HCl 100 mg 11/24/18 22:00 11/26/18 21:19 Desyrel PO Not Given HS [facility] Past Psychiatric History - Past Psychiatric History Pertinent Medical Hx (Current Medical&Sleep Prob, Allergies): Allergies Allergy/AdvReac Type Severity Reaction Status Date / Time Penicillins Allergy ANAPHYLAXIS Verified 11/24/18 14:41 hydrOXYzine HCl [Atarax] 25 mg PO BID PRN #60 tab 11/05/17 traZODone [Desyrel] 100 mg PO HS #30 tab 11/05/17 Fluticasone/Salmeterol 500/50 [Advair Diskus 500/50] 1 puff INH RQ12 #1 inhaler 03/07/18 Montelukast [Singulair] 10 mg PO HS #30 tab 03/07/18 Albuterol/Ipratropium [Duoneb 3 mg/0.5 mg (3 ml) UD] 3 ml IH TID PRN 04/15/18 Umeclidinium [place] [Incruse Ellipta] 62.5 mcg IH DAILY 04/15/18 Albuterol HFA [Ventolin HFA 90 mcg/actuation (8 g)] 1 puff IH Q6H PRN #1 puff 05/22/18 Docusate [Colace] 1 cap PO HS 09/07/18 Methadone 60 mg PO DAILY 09/07/18 Polyethylene Glycol 1450 [Pcca Polyglycol [place]] 17 gm PO Q8H PRN 09/07/18 Propylene Glycol/Peg 400/Pf [Systane 0.3-0.4% Eye Drop] 2 drop OD Q8H PRN 09/07/18 Escitalopram [Lexapro] 10 mg PO DAILY #30 tab 10/24/18 Gabapentin [Neurontin] 300 mg PO BID 30 Days cap 10/24/18 Melatonin 5 mg PO HS 30 Days capsule 10/24/18 Zolpidem [Ambien] 1 tab PO HS #30 tab 10/24/18 ALPRAZolam [Xanax] 0.25 mg PO TID PRN #10 tab 11/18/18 metFORMIN [glucOPHAGE] 500 mg PO BID #60 tab 11/18/18 Review of Systems - Psychiatric Psychiatric: absent: Auditory Hallucinations, Homicidal Ideation, Suicidal Ideation, Visual Hallucinations Mental Status Examination - Personal Presentation Personal Presentation: Looks older than stated age - Affect Affect: Constricted, Flat - Motor Activity Motor Activity: Calm - Reliability in Providing Information Reliability in Providing Information: Other Additional comments: Poor, due to patient's condition - Mood Mood: Depressed - Formal Thought Process Formal Thought Process: No Impairment - Cognitive Functions Orientation: Person, Place Sensorium: Drowsy, Lethargic DSM 5 DX - DSM 5 DSM 5 Diagnosis: Opioid use disorder - severe hx of depression, panic attacks - Recommended/Plan of Treatment Treatment Recommendations and Plan of Treatment: methadone tx medications as needed cont medical management as per primary support and psychoeducation daily after care to be discussed by carlito Miller d/w Dr Reyes
--- NOTE | 2018-11-29 15:13 | CP.PCM.PN ---
Subjective - Date & Time of Evaluation Date of Evaluation: 11/29/18 Time of Evaluation: 11:00 - Subjective Subjective: Patient seen at bedside. Resting with nasal cannula. Patient looked very lethargic and nearly unarousable. Earlier in the day she was resting with NC improperly paced over chin. ROS: Patient admits to shortness of breath. Rest of systems reviewed and negative PE HEENT: Atraumatic, normocephalic, moist mucous membranes, normal neck inspection Respiratory: decreased breath sounds bilaterally Cardiovascular: regular rate and rhythm GI/abdominal: normoactive bowel sounds Extremities: no pedal edema Neurologic: alert Assessment/Plan 1. COPD exacerbation Placed patient back on BIPAP Continue nebulizer treatment and inhaled corticosteriods Analgesics for chest pain Objective - Vital Signs/Intake and Output Vital Signs (last 24 hours): Temp Pulse Resp BP Pulse Ox 97.2 F L 105 H 20 136/84 100 11/29/18 08:33 11/29/18 11:30 11/29/18 08:33 11/29/18 08:33 11/29/18 08:33 Intake and Output: 11/29/18 11/29/18 06:59 18:59 Intake Total 1340 620 Output Total 350 Balance 1340 270 - Medications Medications: Current Medications Acetaminophen (Tylenol 325mg Tab) 650 mg PO Q6 PRN PRN Reason: Pain, moderate (4-7) Last Admin: 11/29/18 06:38 Dose: 650 mg Albuterol (Ventolin Hfa 90 Mcg/Actuation (8 G)) 1 puff IH RQ6 PRN PRN Reason: Shortness of Breath Albuterol/Ipratropium (Duoneb 3 Mg/0.5 Mg (3 Ml) Ud) 3 ml INH RQ4 [facility] Last Admin: 11/29/18 11:25 Dose: 3 ml Artificial Tears (Artificial Tears) 2 ml OD Q8H PRN PRN Reason: Dry eyes Docusate Sodium (Colace) 100 mg PO DAILY [facility] Last Admin: 11/29/18 10:23 Dose: 100 mg Enoxaparin Sodium (Lovenox) 40 mg SC DAILY [facility] Last Admin: 11/29/18 10:23 Dose: 40 mg Escitalopram Oxalate (Lexapro) 10 mg PO DAILY [facility] Last Admin: 11/29/18 10:23 Dose: 10 mg Fluticasone/Vilanterol (Breo Ellipta 100-25 Mcg Inh) 1 puff INH RQ24 [facility] Gabapentin (Neurontin) 300 mg PO BID [facility] Last Admin: 11/27/18 11:00 Dose: Not Given Hydroxyzine HCl (Atarax) 25 mg PO BID PRN PRN Reason: Anxiety Moxifloxacin HCl (Avelox Iv 400mg/250ml Ns) 400 mg in 250 mls @ 167 mls/hr IVPB Q24H [facility]; Protocol Last Admin: 11/28/18 19:19 Dose: 167 mls/hr Dextrose/Sodium Chloride (Dextrose 5%/0.9% Ns 1000 Ml) 1,000 mls @ 40 mls/hr IV .Q24H [facility] Last Admin: 11/29/18 03:37 Dose: 40 mls/hr Insulin Human Regular (Novolin R) 0 unit SC ACHS [facility]; Protocol Last Admin: 11/29/18 14:48 Dose: Not Given Metformin HCl (Glucophage) 500 mg PO BID [facility] Last Admin: 11/29/18 10:28 Dose: Not Given Methadone HCl (Methadone) 20 mg PO DAILY [facility] Last Admin: 11/27/18 11:00 Dose: Not Given Methadone HCl (Methadose) 40 mg PO DAILY [facility] Last Admin: 11/27/18 11:00 Dose: Not Given Montelukast Sodium (Singulair) 10 mg PO HS [facility] Last Admin: 11/28/18 21:13 Dose: 10 mg Trazodone HCl (Desyrel) 100 mg PO HS [facility] Last Admin: 11/26/18 21:19 Dose: Not Given - Labs Labs: 11/28/18 08:25 11/28/18 08:25
--- NOTE | 2018-11-29 18:00 | CP.PCM.PN ---
Subjective - Date & Time of Evaluation Date of Evaluation: 11/29/18 Time of Evaluation: 12:00 - Subjective Subjective: no nausea no diarrhea no fever no vomtiing sob much better decreased dose of mehtadone Objective - Vital Signs/Intake and Output Vital Signs (last 24 hours): Temp Pulse Resp BP Pulse Ox 97.6 F 120 H 18 137/91 H 98 11/29/18 15:00 11/29/18 15:00 11/29/18 15:00 11/29/18 15:00 11/29/18 15:00 Intake and Output: 11/29/18 11/29/18 06:59 18:59 Intake Total 1340 620 Output Total 350 Balance 1340 270 - Medications Medications: Current Medications Acetaminophen (Tylenol 325mg Tab) 650 mg PO Q6 PRN PRN Reason: Pain, moderate (4-7) Last Admin: 11/29/18 06:38 Dose: 650 mg Albuterol (Ventolin Hfa 90 Mcg/Actuation (8 G)) 1 puff IH RQ6 PRN PRN Reason: Shortness of Breath Albuterol/Ipratropium (Duoneb 3 Mg/0.5 Mg (3 Ml) Ud) 3 ml INH RQ4 [facility] Last Admin: 11/29/18 15:55 Dose: 3 ml Artificial Tears (Artificial Tears) 2 ml OD Q8H PRN PRN Reason: Dry eyes Docusate Sodium (Colace) 100 mg PO DAILY [facility] Last Admin: 11/29/18 10:23 Dose: 100 mg Enoxaparin Sodium (Lovenox) 40 mg SC DAILY [facility] Last Admin: 11/29/18 10:23 Dose: 40 mg Escitalopram Oxalate (Lexapro) 10 mg PO DAILY [facility] Last Admin: 11/29/18 10:23 Dose: 10 mg Fluticasone/Vilanterol (Breo Ellipta 100-25 Mcg Inh) 1 puff INH RQ24 [facility] Gabapentin (Neurontin) 300 mg PO BID [facility] Last Admin: 11/27/18 11:00 Dose: Not Given Hydroxyzine HCl (Atarax) 25 mg PO BID PRN PRN Reason: Anxiety Moxifloxacin HCl (Avelox Iv 400mg/250ml Ns) 400 mg in 250 mls @ 167 mls/hr IVPB Q24H [facility]; Protocol Last Admin: 11/28/18 19:19 Dose: 167 mls/hr Dextrose/Sodium Chloride (Dextrose 5%/0.9% Ns 1000 Ml) 1,000 mls @ 40 mls/hr IV .Q24H [facility] Last Admin: 11/29/18 16:33 Dose: Not Given Insulin Human Regular (Novolin R) 0 unit SC ACHS [facility]; Protocol Last Admin: 11/29/18 17:10 Dose: Not Given Metformin HCl (Glucophage) 500 mg PO BID [facility] Last Admin: 11/29/18 17:19 Dose: Not Given Methadone HCl (Methadone) 20 mg PO DAILY [facility] Last Admin: 11/27/18 11:00 Dose: Not Given Methadone HCl (Methadose) 40 mg PO DAILY [facility] Last Admin: 11/27/18 11:00 Dose: Not Given Montelukast Sodium (Singulair) 10 mg PO [facility] Last Admin: 11/28/18 21:13 Dose: 10 mg Trazodone HCl (Desyrel) 100 mg PO [facility] Last Admin: 11/26/18 21:19 Dose: Not Given - Labs Labs: 11/28/18 08:25 11/28/18 08:25 - Constitutional Appears: Well - Head Exam Head Exam: ATRAUMATIC, NORMAL INSPECTION, NORMOCEPHALIC - Eye Exam Eye Exam: EOMI, Normal appearance, PERRL Pupil Exam: NORMAL ACCOMODATION, PERRL - ENT Exam ENT Exam: Mucous Membranes Moist, Normal Exam - Neck Exam Neck Exam: Full ROM, Normal Inspection. absent: Lymphadenopathy - Respiratory Exam Respiratory Exam: Decreased Breath Sounds - Cardiovascular Exam Cardiovascular Exam: REGULAR RHYTHM, +S1, +S2 - GI/Abdominal Exam GI & Abdominal Exam: Soft, Diminished Bowel Sounds - Rectal Exam Rectal Exam: Deferred - Neurological Exam Neurological Exam: Oriented x3 Assessment and Plan - Assessment and Plan (Free Text) Plan: artificial tears atarax avelox Iv 400mg/250 mk ns breo ellipta colace desyrel dextrose sodium chloride albuterol/ipratropium glucophage lexapro lovenox methadone neurontin novolin R singulair tylenol 325mg ventolin hfa medications reviewed vitals reviewed labs reviewed sobmuch better Much better Pulmonary prn on oxygen complainece encouarged More alert more awake Methadone dose down to on the lower side although methadone is still on the hold bonilla Avelox renewed today
[2018-11-29] MEDS: Moxifloxacin IV 400mg/250ml NS 400 MG/250 ML BAG IVPB SCH (19:53)
--- NOTE | 2018-11-29 20:51 | CARD ---
APPROVED REPORT Date of service: 11/27/2018 EKG Measurement Heart [id number] ID [id number] <Conclusion> Sinus tachycardia with short ID Otherwise normal ECG
[2018-11-30] MEDS: (Novolin R) Insulin Human Regular 100 units/ml vial SC SCH ×4 (09:00→21:09)
[2018-11-30] MEDS: Enoxaparin 40 mg Syringe SC SCH (09:02)
[2018-11-30 11:44] LABS: BASO % 0.3 % (0.0-2.0); EOS # 0.1 K/uL (0.0-0.7); EOS % 0.7 % (0.0-4.0); LYMPH # 1.6 K/uL (1.0-4.3); LYMPH % 18.9 % (20.0-40.0); MEAN CELL VOLUME 95.6 fL (81.0-99.0); MEAN CORPUSCULAR HEMOGLOBIN 33.3 pg (27.0-31.0); MEAN CORPUSCULAR HGB CONC 34.8 g/dL (33.0-37.0); MEAN PLATELET VOLUME 7.4 fL (7.2-11.7); MONO # 0.7 K/uL (0.0-0.8); MONO % 8.4 % (0.0-10.0); NEUT # 5.9 K/uL (1.8-7.0); NEUT % 71.7 % (50.0-75.0); RBC 4.35 Mil/uL (3.80-5.20); RED CELL DISTRIBUTION WIDTH 15.9 % (11.5-14.5); WHITE BLOOD COUNT 8.2 K/uL (4.8-10.8)
[2018-11-30 11:48] LABS: HEMOGLOBIN 14.5 g/dL (11.0-16.0)
[2018-11-30 12:05] LABS: ALB/GLOB RATIO 1.3 (1.0-2.1); ALBUMIN 3.4 g/dL (3.5-5.0); ALT/SGPT 62 U/L (9-52); AST/SGOT 41 U/L (14-36); BLOOD UREA NITROGEN 8 mg/dL (7-17); CALCIUM 8.9 mg/dl (8.6-10.4); GFR NON-AFRICAN AMERICAN > 60
--- NOTE | 2018-11-30 12:49 | CP.PCM.PN ---
Subjective - Date & Time of Evaluation Date of Evaluation: 11/30/18 Objective - Vital Signs/Intake and Output Vital Signs (last 24 hours): Temp Pulse Resp BP Pulse Ox 97.8 F 17 L 18 123/87 98 11/30/18 07:25 11/30/18 07:35 11/30/18 07:25 11/30/18 07:25 11/30/18 07:25 Intake and Output: 11/30/18 11/30/18 06:59 18:59 Intake Total 620 Balance 620 - Medications Medications: Current Medications Acetaminophen (Tylenol 325mg Tab) 650 mg PO Q6 PRN PRN Reason: Pain, moderate (4-7) Last Admin: 11/29/18 06:38 Dose: 650 mg Albuterol (Ventolin Hfa 90 Mcg/Actuation (8 G)) 1 puff IH RQ6 PRN PRN Reason: Shortness of Breath Artificial Tears (Artificial Tears) 2 ml OD Q8H PRN PRN Reason: Dry eyes Docusate Sodium (Colace) 100 mg PO DAILY [facility] Last Admin: 11/30/18 09:01 Dose: 100 mg Enoxaparin Sodium (Lovenox) 40 mg SC DAILY [facility] Last Admin: 11/30/18 09:02 Dose: 40 mg Escitalopram Oxalate (Lexapro) 10 mg PO DAILY [facility] Last Admin: 11/30/18 09:01 Dose: 10 mg Fluticasone/Vilanterol (Breo Ellipta 100-25 Mcg Inh) 1 puff INH RQ24 [facility] Gabapentin (Neurontin) 300 mg PO BID [facility] Last Admin: 11/27/18 11:00 Dose: Not Given Hydroxyzine HCl (Atarax) 25 mg PO BID PRN PRN Reason: Anxiety Moxifloxacin HCl (Avelox Iv 400mg/250ml Ns) 400 mg in 250 mls @ 167 mls/hr IVPB Q24H [facility]; Protocol Last Admin: 11/29/18 19:53 Dose: 167 mls/hr Dextrose/Sodium Chloride (Dextrose 5%/0.9% Ns 1000 Ml) 1,000 mls @ 40 mls/hr IV .Q24H [facility] Last Admin: 11/29/18 16:33 Dose: Not Given Insulin Human Regular (Novolin R) 0 unit SC ACHS [facility]; Protocol Last Admin: 04/03/19 09:00 Dose: 1 unit Metformin HCl (Glucophage) 500 mg PO BID [facility] Last Admin: 11/30/18 09:02 Dose: Not Given Methadone HCl (Methadone) 20 mg PO DAILY [facility] Last Admin: 11/27/18 11:00 Dose: Not Given Methadone HCl (Methadose) 40 mg PO DAILY [facility] Last Admin: 11/27/18 11:00 Dose: Not Given Montelukast Sodium (Singulair) 10 mg PO [facility] Last Admin: 11/29/18 22:19 Dose: Not Given Trazodone HCl (Desyrel) 100 mg PO [facility] Last Admin: 11/26/18 21:19 Dose: Not Given - Labs Labs: 11/30/18 11:32 11/30/18 11:32 - Constitutional Appears: Well - Head Exam Head Exam: ATRAUMATIC, NORMAL INSPECTION, NORMOCEPHALIC - Eye Exam Eye Exam: EOMI, Normal appearance, PERRL Pupil Exam: NORMAL ACCOMODATION, PERRL - ENT Exam ENT Exam: Mucous Membranes Moist, Normal Exam - Neck Exam Neck Exam: Full ROM, Normal Inspection. absent: Lymphadenopathy - Respiratory Exam Respiratory Exam: Decreased Breath Sounds - Cardiovascular Exam Cardiovascular Exam: REGULAR RHYTHM, +S1, +S2 - GI/Abdominal Exam GI & Abdominal Exam: Soft, Diminished Bowel Sounds - Rectal Exam Rectal Exam: Deferred Assessment and Plan - Assessment and Plan (Free Text) Plan: medications reviewed labs reviewed vitals reviewed
[2018-11-30] MEDS ORDERED: Albuterol-Ipratrop 3 mg / 0.5 (3 ml) UD INH STA (15:08)
[2018-11-30] MEDS ORDERED: MethylPREDNISolone 40 mg Vial IVP ONE (15:15)
[2018-11-30 15:24] LABS: VENOUS BLOOD GAS PCO2 68 mmHg (40-60); VENOUS BLOOD GAS PO2 37 mm/Hg (30-55)
--- NOTE | 2018-11-30 15:47 | PCM.RRT ---
<RmRamu - Last Filed: 11/30/18 15:42> CELLAR PUMPER Nurses Assessment - Situation Date: 11/30/18 Time CELLAR PUMPER was called: 15:00 CELLAR PUMPER Responder Arrival Time:: 15:01 CELLAR PUMPER Location:: Med/Surg Room Number: 566 CELLAR PUMPER Reason for Call: Respiratory Distress, Looks Sicker CELLAR PUMPER Called By: RN - IV IV Inserted during CELLAR PUMPER?: No New IV Insertion Tolerance: Excellent - Respiratory CELLAR PUMPER Delivery Method: BiPAP @% Received Nebulizer Treatments: Yes Was the Patient Ventilated with Bag/Mask 100% O2?: No Secretions Suctioned?: No Was the Patient Intubated?: No Was the Patient Placed on a Ventilator?: No - Ventilator Settings FIO2 (% Oxygen): 60 - Medication Medications Administered During CELLAR PUMPER: solumedrol. duoneb - Diagnostic Test Ordered EKG: No Chest X-Ray: Yes CT Scan: No - Stat Labs Ordered CELLAR PUMPER Other Labs Ordered: VBG CPR started during CELLAR PUMPER?: No - Vital Signs Vital Signs: Rapid Response Vital Sign Blood Pressure 146/85 Pulse Rate 107 Respiratory Rate 12 Temperature 98.3 F Oxygen Saturation 96 - Andre Coma Scale Coma Scale Eye Opening: To pain Coma Scale Motor: Obeys Commands Movement Coma Scale Verbal: Oriented Coma Scale Total: 13 - Time CELLAR PUMPER Ended Time CELLAR PUMPER Ended: 10:50 - Vital Signs at end of CELLAR PUMPER Vital Signs at end of CELLAR PUMPER: Rapid Response End Vital Sign Blood Pressure 134/98 Pulse Rate 118 Respiratory Rate 16 Temperature 98 F O2 Sat by Pulse Oximetry 99 - Recommendations Notifications: Attending Physician I.Reason for CELLAR PUMPER - A) Acute Change in Patient: Subjective: Brief on-call resident note CELLAR PUMPER called for respiratory distress Patient is a 57-year-old female with pmhx of COPD, opiate abuse on home methadone. Nurse was concerned for respiratory distress, saying patient "wasn't looking good", minimally responsive, refusing to keep BIPAP on. Vitals on arrival: 96% O2 146/85 111 HR 98.3 T CXR ordered showed no infiltrates. Duoneb x 1, solumedrol 40 mg IVP x 1 given stat. Patient was not currently on steroids. I scheduled solumedrol 40 q8 and duonebs 3q4 giuseppe ordered. Patient refusef ABG draw. VBG showed CO2 of 68. Patient had CELLAR PUMPER previously on 11/27 for similar complaints, refusing to wear BIPAP. Hospitalist (Dr. Mcmanus) and I discussed the importance of using Bipap machine. Patient was held off of sedative medications on last CELLAR PUMPER (11/27) Xanax, gabapentin, Lexapro, methadone, trazodone, Ambien. Palliative consult ordered, per Dr. Mcmanus, given patient's noncompliance with treatment, refusing to wear Bipap, refusing to eat. Hospitalist and I had discussion with patient about her wishes going forward, including to which she simply responded "I don't know". Patient is alert and oriented x 3. - Respiratory Oxygen Delivery Method: BiPAP @% - Constitutional Appears: Older Than Stated Age, Chronically Ill - Head Head Exam: ATRAUMATIC, NORMAL INSPECTION - Eyes Additional Comments: R glass eye - Respiratory Exam Respiratory Exam: Decreased Breath Sounds. absent: Accessory Muscle Use, Respiratory Distress - Cardiovascular Exam Cardiovascular Exam: Tachycardia, +S1, +S2 - GI/Abdominal Exam GI & Abdominal Exam: Soft, Normal Bowel Sounds. absent: Distended, Firm, Guarding, Rigid, Tenderness, Rebound - Neurological Exam Neurological Exam: Alert, Awake, Oriented x3 - Extremities Exam Extremities Exam: Normal Capillary Refill, Normal Inspection Plan - Assessment of Findings&Treatment Plan 57 year old female with a past medical history of hypertension, copd, diabetes and substance abuse with respiratory distress Plan: CXR VBG (pt refused ABG) neuro checks q4h BIPAP Methadone currently still held duoneb x 1 solumedrol 40 IVP x 1 -duonebs 3 q4 giuseppe ordered -solumedrol 40 mg IVP q8 giuseppe ordered -Palliative care consulted as patient refuses to eat, wear bipap, have ABG drawn. <[place] Mcmanus - Last Filed: 11/30/18 16:06> CELLAR PUMPER Nurses Assessment - Vital Signs Vital Signs: Rapid Response Vital Sign Blood Pressure 146/85 Pulse Rate 107 Respiratory Rate 12 Temperature 98.3 F Oxygen Saturation 96 - Vital Signs at end of CELLAR PUMPER Vital Signs at end of CELLAR PUMPER: Rapid Response End Vital Sign Blood Pressure 134/98 Pulse Rate 118 Respiratory Rate 16 Temperature 98 F O2 Sat by Pulse Oximetry 99 Attending/Attestation - Attestation I have personally seen and examined this patient.: Yes I have fully participated in the care of the patient.: Yes I have reviewed all pertinent clinical information, including history, physical exam and plan: Yes Notes (Text): 11/30/18 16:01 Medical attending: Came and saw patient immediately with the medical coding manager and nursing staff The patient I was informed should be wearing the BIPAP however patient has been taking it off. Nursing staff noted she appeared having difficulty breathing and AMS The BIPAP was placed back on and she was given solumedrol 125 x 1, solumedrol 40 IV Q8hrs, a nebulizer treatment as well her other medication such as Breo/Ellipta She has been refusing ABGs I am told. She tells us she does not want any more ABGs. She was AAO x 3. Explained to her that per review of previous notes and numbers she has CO2 retention (hypercapnia) the repeat CXRAY shows that she has COPD/Emphema appearace. Previously was on methadone, and xanax as well - these were already on hold. She is also refusing to eat as well. I explained to the patient that if she is refusing to eat, refusing BIPAP that her health will continue to worsen. We asked her if she wants to be DNR and DNI. I spoke to her in very simple langauage - and she says she is not sure. Will consult palliative care. [place] Mcmanus
[2018-11-30] MEDS: Albuterol-Ipratrop 3 mg / 0.5 (3 ml) UD INH SCH ×2 (16:05→21:36)
--- NOTE | 2018-11-30 16:30 | RAD ---
HISTORY: NURSE INSTRUCTOR sob COMPARISON: Chest x-ray performed 11/27/18 TECHNIQUE: Chest, one view. FINDINGS: LUNGS: Biapical pleural thickening. Please note that chest x-ray has limited sensitivity for the detection of pulmonary masses. PLEURA: No significant pleural effusion identified. No definite pneumothorax . CARDIOVASCULAR: Heart size appears within normal limits. Atherosclerotic calcifications present. OSSEOUS STRUCTURES: Degenerative changes. VISUALIZED UPPER ABDOMEN: Unremarkable. OTHER FINDINGS: None. IMPRESSION: Biapical pleural thickening.
--- NOTE | 2018-11-30 17:16 | CP.PCM.PN ---
Subjective - Date & Time of Evaluation Date of Evaluation: 11/30/18 Time of Evaluation: 14:00 - Subjective Subjective: Patient seen and examined Appears lethargic and short of breath Refusing to use BiPAP Refusing ABG Continue steroids and nebulizer treatment Patient convinced to use BiPAP Objective - Vital Signs/Intake and Output Vital Signs (last 24 hours): Temp Pulse Resp BP Pulse Ox 98.3 F 110 H 16 117/88 100 11/30/18 15:00 11/30/18 15:00 11/30/18 15:00 11/30/18 15:00 11/30/18 15:00 Intake and Output: 11/30/18 11/30/18 06:59 18:59 Intake Total 620 380 Balance 620 380 - Medications Medications: Current Medications Acetaminophen (Tylenol 325mg Tab) 650 mg PO Q6 PRN PRN Reason: Pain, moderate (4-7) Last Admin: 11/29/18 06:38 Dose: 650 mg Albuterol (Ventolin Hfa 90 Mcg/Actuation (8 G)) 1 puff IH RQ6 PRN PRN Reason: Shortness of Breath Albuterol/Ipratropium (Duoneb 3 Mg/0.5 Mg (3 Ml) Ud) 3 ml INH RQ4 NITHIN Artificial Tears (Artificial Tears) 2 ml OD Q8H PRN PRN Reason: Dry eyes Docusate Sodium (Colace) 100 mg PO DAILY [facility] Last Admin: 11/30/18 09:01 Dose: 100 mg Enoxaparin Sodium (Lovenox) 40 mg SC DAILY [facility] Last Admin: 11/30/18 09:02 Dose: 40 mg Escitalopram Oxalate (Lexapro) 10 mg PO DAILY [facility] Last Admin: 11/30/18 09:01 Dose: 10 mg Fluticasone/Vilanterol (Breo Ellipta 100-25 Mcg Inh) 1 puff INH RQ24 [facility] Gabapentin (Neurontin) 300 mg PO BID [facility] Last Admin: 11/27/18 11:00 Dose: Not Given Hydroxyzine HCl (Atarax) 25 mg PO BID PRN PRN Reason: Anxiety Moxifloxacin HCl (Avelox Iv 400mg/250ml Ns) 400 mg in 250 mls @ 167 mls/hr IVPB Q24H [facility]; Protocol Last Admin: 11/29/18 19:53 Dose: 167 mls/hr Dextrose/Sodium Chloride (Dextrose 5%/0.9% Ns 1000 Ml) 1,000 mls @ 40 mls/hr IV .Q24H [facility] Last Admin: 11/29/18 16:33 Dose: Not Given Insulin Human Regular (Novolin R) 0 unit SC [facility]; Protocol Last Admin: 11/30/18 16:59 Dose: 2 unit Metformin HCl (Glucophage) 500 mg PO BID [facility] Last Admin: 11/30/18 09:02 Dose: Not Given Methadone HCl (Methadone) 20 mg PO DAILY [facility] Last Admin: 11/27/18 11:00 Dose: Not Given Methadone HCl (Methadose) 40 mg PO DAILY [facility] Last Admin: 11/27/18 11:00 Dose: Not Given Methylprednisolone (Solu-Medrol) 40 mg IVP Q8 [facility] Montelukast Sodium (Singulair) 10 mg PO HS [facility] Last Admin: 11/29/18 22:19 Dose: Not Given Trazodone HCl (Desyrel) 100 mg PO [facility] Last Admin: 11/26/18 21:19 Dose: Not Given - Labs Labs: 11/30/18 11:32 11/30/18 11:32
--- NOTE | 2018-11-30 18:21 | CP.PCM.PN ---
Subjective - Date & Time of Evaluation Date of Evaluation: 11/30/18 Time of Evaluation: 09:55 - Subjective Subjective: no nasuea vomtting today is her birthday and faily visited pt has baloons in room and granados and appears happy pt wants to go home but still sob but better pulm called no nasuea ro ovmitting no chestg pain Objective - Vital Signs/Intake and Output Vital Signs (last 24 hours): Temp Pulse Resp BP Pulse Ox 98.3 F 110 H 16 117/88 100 11/30/18 15:00 11/30/18 15:00 11/30/18 15:00 11/30/18 15:00 11/30/18 15:00 Intake and Output: 11/30/18 11/30/18 06:59 18:59 Intake Total 620 380 Balance 620 380 - Medications Medications: Current Medications Acetaminophen (Tylenol 325mg Tab) 650 mg PO Q6 PRN PRN Reason: Pain, moderate (4-7) Last Admin: 11/29/18 06:38 Dose: 650 mg Albuterol (Ventolin Hfa 90 Mcg/Actuation (8 G)) 1 puff IH RQ6 PRN PRN Reason: Shortness of Breath Albuterol/Ipratropium (Duoneb 3 Mg/0.5 Mg (3 Ml) Ud) 3 ml INH RQ4 NITHIN Artificial Tears (Artificial Tears) 2 ml OD Q8H PRN PRN Reason: Dry eyes Docusate Sodium (Colace) 100 mg PO DAILY [facility] Last Admin: 11/30/18 09:01 Dose: 100 mg Enoxaparin Sodium (Lovenox) 40 mg SC DAILY [facility] Last Admin: 11/30/18 09:02 Dose: 40 mg Escitalopram Oxalate (Lexapro) 10 mg PO DAILY [facility] Last Admin: 11/30/18 09:01 Dose: 10 mg Fluticasone/Vilanterol (Breo Ellipta 100-25 Mcg Inh) 1 puff INH RQ24 [facility] Gabapentin (Neurontin) 300 mg PO BID [facility] Last Admin: 11/27/18 11:00 Dose: Not Given Hydroxyzine HCl (Atarax) 25 mg PO BID PRN PRN Reason: Anxiety Moxifloxacin HCl (Avelox Iv 400mg/250ml Ns) 400 mg in 250 mls @ 167 mls/hr IVPB Q24H [facility]; Protocol Last Admin: 11/29/18 19:53 Dose: 167 mls/hr Dextrose/Sodium Chloride (Dextrose 5%/0.9% Ns 1000 Ml) 1,000 mls @ 40 mls/hr IV .Q24H [facility] Last Admin: 11/29/18 16:33 Dose: Not Given Insulin Human Regular (Novolin R) 0 unit SC ACHS [facility]; Protocol Last Admin: 11/30/18 16:59 Dose: 2 unit Metformin HCl (Glucophage) 500 mg PO BID [facility] Last Admin: 11/30/18 09:02 Dose: Not Given Methadone HCl (Methadone) 20 mg PO DAILY [facility] Last Admin: 11/27/18 11:00 Dose: Not Given Methadone HCl (Methadose) 40 mg PO DAILY [facility] Last Admin: 11/27/18 11:00 Dose: Not Given Methylprednisolone (Solu-Medrol) 40 mg IVP Q8 [facility] Montelukast Sodium (Singulair) 10 mg PO HS [facility] Last Admin: 11/29/18 22:19 Dose: Not Given Trazodone HCl (Desyrel) [address] [facility] Last Admin: 11/26/18 21:19 Dose: Not Given - Labs Labs: 11/30/18 11:32 11/30/18 11:32 - Constitutional Appears: Well - Head Exam Head Exam: ATRAUMATIC, NORMAL INSPECTION, NORMOCEPHALIC - Eye Exam Eye Exam: EOMI, Normal appearance, PERRL Pupil Exam: NORMAL ACCOMODATION, PERRL - ENT Exam ENT Exam: Mucous Membranes Moist, Normal Exam - Neck Exam Neck Exam: Full ROM, Normal Inspection. absent: Lymphadenopathy - Respiratory Exam Respiratory Exam: Decreased Breath Sounds - Cardiovascular Exam Cardiovascular Exam: REGULAR RHYTHM, +S1, +S2 - GI/Abdominal Exam GI & Abdominal Exam: Soft, Diminished Bowel Sounds - Rectal Exam Rectal Exam: Deferred Assessment and Plan - Assessment and Plan (Free Text) Plan: medications reviewed vitals reviewed labs reviewed artificial tears atarax avelox breo ellipta colace desyrel dextrose duoneb 3mg glucophage lexapro lovenox methadone neurontin novolin R singulair solu-medrol tylenol 325mg tab ventolin dr. love pt wants to go brianna e me dreviweed co2 went down to 40 monitor for sob or worsening d.w nursing staff Moderate complexity of care
[2018-11-30] MEDS: Dextrose 5%/0.9% NS 1,000 ML IV SCH (18:32)
[2018-11-30] MEDS: Moxifloxacin IV 400mg/250ml NS 400 MG/250 ML BAG IVPB SCH (19:34)
[2018-11-30] MEDS: MethylPREDNISolone 40 mg Vial IVP SCH (21:25)
[2018-12-01] MEDS: Albuterol-Ipratrop 3 mg / 0.5 (3 ml) UD INH SCH ×6 (00:54→23:56)
[2018-12-01] MEDS: MethylPREDNISolone 40 mg Vial IVP SCH ×3 (05:44→21:28)
[2018-12-01] MEDS: Enoxaparin 40 mg Syringe SC SCH (10:16)
[2018-12-01] MEDS: (Novolin R) Insulin Human Regular 100 units/ml vial SC SCH ×4 (10:29→21:34)
--- NOTE | 2018-12-01 13:53 | CP.PCM.PN ---
Subjective - Date & Time of Evaluation Date of Evaluation: 12/01/18 Time of Evaluation: 09:00 - Subjective Subjective: Patient seen at bedside. Patient resting comfortably. Rapid response called yesterday afternoon due to lethargy and shortness of breath. Patient refused BiPAP yesterday however, she wore it overnight and returned to it this morning. Seen with nasal cannula and appeared comfortable. VBG yesterday showed pCO2 of 68. ROS: Patient denies shortness of breath. Rest of systems reviewed and negative PE HEENT: Atraumatic, normocephalic, moist mucous membranes, normal neck inspection Respiratory: decreased breath sounds bilaterally Cardiovascular: regular rate and rhythm GI/abdominal: normoactive bowel sounds Extremities: no pedal edema Neurologic: alert Assessment/Plan 1. COPD exacerbation Continue nebulizer treatment and inhaled corticosteriods. Continue use of BiPAP. Analgesics for chest pain Objective - Vital Signs/Intake and Output Vital Signs (last 24 hours): Temp Pulse Resp BP Pulse Ox 97.3 F L 87 18 123/82 99 12/01/18 07:15 12/01/18 07:15 12/01/18 07:15 12/01/18 07:15 12/01/18 07:15 Intake and Output: 12/01/18 12/01/18 06:59 18:59 Intake Total 930 Balance 930 - Medications Medications: Current Medications Acetaminophen (Tylenol 325mg Tab) 650 mg PO Q6 PRN PRN Reason: Pain, moderate (4-7) Last Admin: 11/29/18 06:38 Dose: 650 mg Albuterol (Ventolin Hfa 90 Mcg/Actuation (8 G)) 1 puff IH RQ6 PRN PRN Reason: Shortness of Breath Albuterol/Ipratropium (Duoneb 3 Mg/0.5 Mg (3 Ml) Ud) 3 ml INH RQ4 NITHIN Last Admin: 12/01/18 08:38 Dose: 3 ml Artificial Tears (Artificial Tears) 2 ml OD Q8H PRN PRN Reason: Dry eyes Docusate Sodium (Colace) 100 mg PO DAILY [facility] Last Admin: 12/01/18 10:15 Dose: 100 mg Enoxaparin Sodium (Lovenox) 40 mg SC DAILY [facility] Last Admin: 12/01/18 10:16 Dose: 40 mg Escitalopram Oxalate (Lexapro) 10 mg PO DAILY [facility] Last Admin: 12/01/18 10:15 Dose: 10 mg Fluticasone/Vilanterol (Breo Ellipta 100-25 Mcg Inh) 1 puff INH RQ24 [facility] Gabapentin (Neurontin) 300 mg PO BID [facility] Last Admin: 11/27/18 11:00 Dose: Not Given Hydroxyzine HCl (Atarax) 25 mg PO BID PRN PRN Reason: Anxiety Moxifloxacin HCl (Avelox Iv 400mg/250ml Ns) 400 mg in 250 mls @ 167 mls/hr IVPB Q24H [facility]; Protocol Last Admin: 11/30/18 19:34 Dose: 167 mls/hr Dextrose/Sodium Chloride (Dextrose 5%/0.9% Ns 1000 Ml) 1,000 mls @ 40 mls/hr IV .Q24H [facility] Last Admin: 11/30/18 18:32 Dose: Not Given Insulin Human Regular (Novolin R) 0 unit SC ACHS [facility]; Protocol Last Admin: 12/01/18 10:29 Dose: 2 unit Metformin HCl (Glucophage) 500 mg PO BID [facility] Last Admin: 12/01/18 10:19 Dose: Not Given Methadone HCl (Methadone) 20 mg PO DAILY [facility] Last Admin: 11/27/18 11:00 Dose: Not Given Methadone HCl (Methadose) 40 mg PO DAILY [facility] Last Admin: 11/27/18 11:00 Dose: Not Given Methylprednisolone (Solu-Medrol) 40 mg IVP Q8 [facility] Last Admin: 12/01/18 05:44 Dose: 40 mg Montelukast Sodium (Singulair) 10 mg PO HS [facility] Last Admin: 11/30/18 21:25 Dose: 10 mg Trazodone HCl (Desyrel) 100 mg PO HS [facility] Last Admin: 11/26/18 21:19 Dose: Not Given - Labs Labs: 11/30/18 11:32 11/30/18 11:32
--- NOTE | 2018-12-01 14:46 | CP.PCM.PN ---
Subjective - Date & Time of Evaluation Date of Evaluation: 12/01/18 Time of Evaluation: 09:45 - Subjective Subjective: patient seen today no nausea no vomiting no diarrhea no fever no dizziness sitting out of bed to chair wide awake Objective - Vital Signs/Intake and Output Vital Signs (last 24 hours): Temp Pulse Resp BP Pulse Ox 97.3 F L 87 18 123/82 99 12/01/18 07:15 12/01/18 07:15 12/01/18 07:15 12/01/18 07:15 12/01/18 07:15 Intake and Output: 12/01/18 12/01/18 06:59 18:59 Intake Total 930 Balance 930 - Medications Medications: Current Medications Acetaminophen (Tylenol 325mg Tab) 650 mg PO Q6 PRN PRN Reason: Pain, moderate (4-7) Last Admin: 11/29/18 06:38 Dose: 650 mg Albuterol (Ventolin Hfa 90 Mcg/Actuation (8 G)) 1 puff IH RQ6 PRN PRN Reason: Shortness of Breath Albuterol/Ipratropium (Duoneb 3 Mg/0.5 Mg (3 Ml) Ud) 3 ml INH RQ4 [facility] Last Admin: 12/01/18 08:38 Dose: 3 ml Artificial Tears (Artificial Tears) 2 ml OD Q8H PRN PRN Reason: Dry eyes Docusate Sodium (Colace) 100 mg PO DAILY [facility] Last Admin: 12/01/18 10:15 Dose: 100 mg Enoxaparin Sodium (Lovenox) 40 mg SC DAILY [facility] Last Admin: 12/01/18 10:16 Dose: 40 mg Escitalopram Oxalate (Lexapro) 10 mg PO DAILY [facility] Last Admin: 12/01/18 10:15 Dose: 10 mg Fluticasone/Vilanterol (Breo Ellipta 100-25 Mcg Inh) 1 puff INH RQ24 [facility] Gabapentin (Neurontin) 300 mg PO BID [facility] Last Admin: 11/27/18 11:00 Dose: Not Given Hydroxyzine HCl (Atarax) 25 mg PO BID PRN PRN Reason: Anxiety Moxifloxacin HCl (Avelox Iv 400mg/250ml Ns) 400 mg in 250 mls @ 167 mls/hr IVPB Q24H [facility]; Protocol Last Admin: 11/30/18 19:34 Dose: 167 mls/hr Dextrose/Sodium Chloride (Dextrose 5%/0.9% Ns 1000 Ml) 1,000 mls @ 40 mls/hr IV .Q24H [facility] Last Admin: 11/30/18 18:32 Dose: Not Given Insulin Human Regular (Novolin R) 0 unit SC ACHS [facility]; Protocol Last Admin: 12/01/18 14:08 Dose: 3 unit Metformin HCl (Glucophage) 500 mg PO BID [facility] Last Admin: 12/01/18 10:19 Dose: Not Given Methadone HCl (Methadone) 20 mg PO DAILY [facility] Last Admin: 11/27/18 11:00 Dose: Not Given Methadone HCl (Methadose) 40 mg PO DAILY [facility] Last Admin: 11/27/18 11:00 Dose: Not Given Methylprednisolone (Solu-Medrol) 40 mg IVP Q8 [facility] Last Admin: 12/01/18 14:09 Dose: 40 mg Montelukast Sodium (Singulair) 10 mg PO [facility] Last Admin: 11/30/18 21:25 Dose: 10 mg Trazodone HCl (Desyrel) 100 mg PO [facility] Last Admin: 11/26/18 21:19 Dose: Not Given - Labs Labs: 11/30/18 11:32 11/30/18 11:32 - Constitutional Appears: Well - Head Exam Head Exam: ATRAUMATIC, NORMAL INSPECTION, NORMOCEPHALIC - Eye Exam Eye Exam: EOMI, Normal appearance, PERRL Pupil Exam: NORMAL ACCOMODATION, PERRL - ENT Exam ENT Exam: Mucous Membranes Moist, Normal Exam - Neck Exam Neck Exam: Full ROM, Normal Inspection. absent: Lymphadenopathy - Respiratory Exam Respiratory Exam: Decreased Breath Sounds - Cardiovascular Exam Cardiovascular Exam: REGULAR RHYTHM, +S1, +S2 - GI/Abdominal Exam GI & Abdominal Exam: Soft, Diminished Bowel Sounds - Rectal Exam Rectal Exam: Deferred Assessment and Plan - Assessment and Plan (Free Text) Plan: patients medications reviewed labs reviewed vitals also reviewed artificial tears atarax avelox Iv breo-ellipta colace desyrel dextrose 5%/0.9Ns 1000 Ml duoneb 3mg/0.5mg glucophage lexapro lovenox methadone neurontin novolin R singulair solu-medrol tylenol 325mg tb ventolin hfa 90 mcg wants to be dced followup wptih pulm
[2018-12-01] MEDS: Dextrose 5%/0.9% NS 1,000 ML IV SCH (15:44)
[2018-12-01] MEDS: Moxifloxacin IV 400mg/250ml NS 400 MG/250 ML BAG IVPB SCH (19:01)
[2018-12-02] MEDS: Albuterol-Ipratrop 3 mg / 0.5 (3 ml) UD INH SCH ×5 (03:17→20:13)
[2018-12-02] MEDS: MethylPREDNISolone 40 mg Vial IVP SCH ×3 (06:31→22:24)
[2018-12-02] MEDS: (Novolin R) Insulin Human Regular 100 units/ml vial SC SCH ×4 (08:00→21:56)
[2018-12-02] MEDS: Enoxaparin 40 mg Syringe SC SCH (09:47)
--- NOTE | 2018-12-02 13:21 | CP.PCM.CON ---
History of Present Illness - History of Present Illness History of Present Illness: Palliative consult requested by Doctor Magaña for goals of care discussion Patient is a 58 yo female admitted from home due to difficulties breathing X 2 days. Patient reports she run out of her Neb. meds. Patient denied fever . Patient was treated here from 10/24/18-11/13/18 for similar symptoms. CXR on this admission showed slight improvement since last exam. On 11/30/18 [facility] RN was called for acute Resp. distress. Patient's condition improved after Duoneb and Solu Medrol. Patient is also on Breo and Albuterol Q 6 hr PRN. Patient has numerous admissions for same chronic symptoms. Her Asbestos Remover is suggesting the facility admission as LTC, to avoid unneccassary admission to the hospital as patient has poor support at home. PMH: COPD, anemia, DM, HTN, emphysema, back Sx Soc. Hx: single, has two daughters and one son, uses heroin , chart reviewe reveals Hx of 20 bags Heroin a day IV, on Metahdone 60 mg for the last 6 months as per patient, multiple Detox admission Fam. Hx: drug abuse in family Review of Systems - Constitutional Constitutional: Lethargy - EENT Eyes: absent: As Per HPI, Blind Spots, Blurred Vision, Change in Vision, Decreased Night Vision, Diplopia, Discharge, Dry Eye, Exophthalmos, Floaters, Irritation, Itchy Eyes, Loss of Peripheral Vision, Pain, Photophobia, Requires Corrective Lenses, Sees Flashes, Spots in Vision, Tunnel Vision, Other Visual Disturbances, Loss of Vision, Other Ears: absent: As Per HPI, Decreased Hearing, Ear Discharge, Ear Pain, Tinnitus, Abnormal Hearing, Disequilibrium, Dizziness, Other Nose/Mouth/Throat: absent: As Per HPI, Epistaxis, Nasal Congestion, Nasal Discharge, Nasal Obstruction, Nasal Trauma, Nose Pain, Post Nasal Drip, Sinus Pain, Sinus Pressure, Bleeding Gums, Change in Voice, Dental Pain, Dry Mouth, Dysphagia, Halitosis, Hoarsness, Lip Swelling, Mouth Lesions, Mouth Pain, Odynophagia, Sore Throat, Throat Swelling, Tongue Swelling, Facial Pain, Neck Pain, Neck Mass, Other - Breasts Breasts: absent: As Per HPI, Change in Shape, Mass, Pain, Nipple Discharge, Nipple Inversion, Skin Changes, Swelling, Other - Cardiovascular Cardiovascular: Irregular Heart Rhythm, Palpitations - Respiratory Respiratory: Cough - Gastrointestinal Gastrointestinal: Dyspepsia - Genitourinary Genitourinary: absent: As Per HPI, Change in Urinary Stream, Difficulty Urinating, Dysuria, Flank Pain, Hematuria, Pyuria, Nocturia, Urinary Incontinence, Urinary Frequency, Urinary Hesitance, Urinary Urgency, Voiding Freq/Small Amts, Freq UTI, Hx Renal/Bladder Calculi, Hx /Renal Surgery, Bladder Distension, Other - Reproductive: Female Reproductive:Female: Post Menopausal - Menstruation Menstruation: Post Menopausal - Musculoskeletal Musculoskeletal: Abnormal Gait, Muscle Weakness - Integumentary Integumentary: absent: As Per HPI, Acne, Alopecia, Bleeding Lesions, Change in Hair, Change in Nails, Change in Pigmentation, Changing Lesions, Dry Skin, Erythema, Furuncle, Hirsutism, Lesions, New Lesions, Non-Healing Lesions, Photosensitivity, Pruritus, Rash, Skin Pain, Skin Ulcer, Sores, Striae, Swelling, Unusual Bruising, Wounds, Jaundice, Other - Neurological Neurological: Weakness - Psychiatric Psychiatric: Change in Libido, Difficulty Concentrating - Endocrine Endocrine: absent: As Per HPI, Change in Body Appearance, Change in Libido, Cold Intolorance, Deepening of Voice, Excessive Sweating, Fatigue, Flushing, Heat Intolorance, Increase in Ring/Shoe/Hat Size, Palpitations, Polydipsia, Polyphagia, Polyuria, Other - Hematologic/Lymphatic Hematologic: absent: As Per HPI, Easy Bleeding, Easy Bruising, Lymphadenopathy, Other Past Patient History - Infectious Disease Hx of Infectious Diseases: None - Tetanus Immunizations Tetanus Immunization: Unknown - Past Medical History & Family History Past Medical History?: Yes - Past Social History Smoking Status: Former Smoker - CARDIAC Hx Cardia Arrhythmia: Yes Hx Hypertension: Yes Hx Pacemaker: No - PULMONARY Hx Respiratory Disorders: Yes Hx Asthma: Yes Hx Bronchitis: Yes Hx Chronic Obstructive Pulmonary Disease (COPD): Yes Hx Emphysema: Yes Hx Sleep Apnea: No - NEUROLOGICAL Hx Neurological Disorder: No Hx Seizures: No - HEENT Hx HEENT Problems: 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 - RENAL Hx Chronic Kidney Disease: No - ENDOCRINE/METABOLIC Hx Endocrine Disorders: Yes Hx Diabetes Mellitus Type 2: Yes - HEMATOLOGICAL/ONCOLOGICAL Hx Blood Disorders: Yes Hx Anemia: Yes - INTEGUMENTARY Hx Dermatological Problems: No - MUSCULOSKELETAL/RHEUMATOLOGICAL Hx Falls: No - GASTROINTESTINAL Hx Gastrointestinal Disorders: Yes (constipation at times) - GENITOURINARY/GYNECOLOGICAL Hx Genitourinary Disorders: No Hx Sexually Transmitted Disorders: No - PSYCHIATRIC Hx Psychophysiologic Disorder: Yes Hx Substance Use: Yes - SURGICAL HISTORY Hx Surgeries: No Hx Coronary Stent: No - ANESTHESIA Hx Anesthesia: Yes Hx Anesthesia Reactions: No Hx Malignant Hyperthermia: No Meds Allergies/Adverse Reactions: Allergies Allergy/AdvReac Type Severity Reaction Status Date / Time Penicillins Allergy ANAPHYLAXIS Verified 11/24/18 14:41 - Medications Medications: Current Medications Acetaminophen (Tylenol 325mg Tab) 650 mg PO Q6 PRN PRN Reason: Pain, moderate (4-7) Last Admin: 11/29/18 06:38 Dose: 650 mg Albuterol (Ventolin Hfa 90 Mcg/Actuation (8 G)) 1 puff IH RQ6 PRN PRN Reason: Shortness of Breath Albuterol/Ipratropium (Duoneb 3 Mg/0.5 Mg (3 Ml) Ud) 3 ml INH RQ4 [facility] Last Admin: 12/02/18 11:50 Dose: 3 ml Artificial Tears (Artificial Tears) 2 ml OD Q8H PRN PRN Reason: Dry eyes Docusate Sodium (Colace) 100 mg PO DAILY [facility] Last Admin: 12/02/18 09:47 Dose: 100 mg Enoxaparin Sodium (Lovenox) 40 mg SC DAILY [facility] Last Admin: 12/02/18 09:47 Dose: 40 mg Escitalopram Oxalate (Lexapro) 10 mg PO DAILY [facility] Last Admin: 12/02/18 09:47 Dose: 10 mg Fluticasone/Vilanterol (Breo Ellipta 100-25 Mcg Inh) 1 puff INH RQ24 [facility] Gabapentin (Neurontin) 300 mg PO BID [facility] Last Admin: 11/27/18 11:00 Dose: Not Given Hydroxyzine HCl (Atarax) 25 mg PO BID PRN PRN Reason: Anxiety Moxifloxacin HCl (Avelox Iv 400mg/250ml Ns) 400 mg in 250 mls @ 167 mls/hr IVPB Q24H [facility]; Protocol Last Admin: 12/01/18 19:01 Dose: 167 mls/hr Dextrose/Sodium Chloride (Dextrose 5%/0.9% Ns 1000 Ml) 1,000 mls @ 40 mls/hr IV .Q24H [facility] Last Admin: 12/01/18 15:44 Dose: 40 mls/hr Insulin Human Regular (Novolin R) 0 unit SC [facility]; Protocol Last Admin: 12/02/18 12:21 Dose: 4 unit Metformin HCl (Glucophage) 500 mg PO BID [facility] Last Admin: 12/02/18 09:47 Dose: Not Given Methadone HCl (Methadone) 20 mg PO DAILY [facility] Last Admin: 11/27/18 11:00 Dose: Not Given Methadone HCl (Methadose) 40 mg PO DAILY [facility] Last Admin: 11/27/18 11:00 Dose: Not Given Methylprednisolone (Solu-Medrol) 40 mg IVP Q8 [facility] Last Admin: 12/02/18 06:31 Dose: 40 mg Montelukast Sodium (Singulair) 10 mg PO [facility] Last Admin: 12/01/18 21:28 Dose: 10 mg Trazodone HCl (Desyrel) 100 mg PO [facility] Last Admin: 11/26/18 21:19 Dose: Not Given Physical Exam - Constitutional Appears: No Acute Distress, Chronically Ill - Head Exam Head Exam: ATRAUMATIC, NORMAL INSPECTION, NORMOCEPHALIC - Eye Exam Eye Exam: EOMI, Normal appearance, PERRL Pupil Exam: NORMAL ACCOMODATION, PERRL - ENT Exam ENT Exam: Mucous Membranes Moist, Normal Exam - Neck Exam Neck exam: Positive for: Normal Inspection - Respiratory Exam Respiratory Exam: Rhonchi, NORMAL BREATHING PATTERN - Cardiovascular Exam Cardiovascular Exam: Irregular Rhythm - GI/Abdominal Exam GI & Abdominal Exam: Normal Bowel Sounds, Soft - Rectal Exam Rectal Exam: Deferred - Exam Exam: NORMAL INSPECTION - Extremities Exam Extremities exam: Positive for: normal inspection - Back Exam Back exam: NORMAL INSPECTION - Neurological Exam Neurological exam: Alert, Altered - Psychiatric Exam Psychiatric exam: Depressed, Flat Affect - Skin Skin Exam: Dry, Intact, Normal Color, Warm Results - Vital Signs Recent Vital Signs: Last Vital Signs Temp 98.2 F 12/02/18 07:00 Pulse 98 H 12/02/18 10:00 Resp 20 12/02/18 07:00 BP 133/86 12/02/18 07:00 Pulse Ox 96 12/02/18 07:00 - Labs Result Diagrams: 11/30/18 11:32 11/30/18 11:32 Labs: Laboratory Results - last 24 hr 12/01/18 12/01/18 12/02/18 16:00 21:27 02:14 POC Glucose (mg/dL) 231 H 359 H 204 H 12/02/18 12/02/18 06:00 11:44 POC Glucose (mg/dL) 182 H 349 H Assessment & Plan - Assessment and Plan (Free Text) Assessment: Palliative consult Full Code, there is no Advance Directive on chart, PPS 20% I reviewed all Medical records, disagnostic studies, examined and interviewed patient in the bed, Patient is alert, oriented, with difficulties concentrating. Patient has good local intermodal truck driver Hx, but lack of short term memory and has no decision making capacity. Speech is clear. Patient is unable to maintain her concentration, fail asleep few times during the interview. Skin pale, dry, intact. Breath sounds diminished, moist cough, reports SOB at rest, SOB worse while eating and for that reason patient's food intakes decreased, uses O2Via NC daily, feels like " she could use more O2", BiPap at night. HR 66, irregular rhythm, denies chest pain. Abdomen soft, flat, active bowel sounds, denies constipation/abdominal pain/diarrhea Passive and active ROM to upper and LEs, ambulatory but for short distances only. Patient report being unable to attend to house chores nor to do food shopping. Psychosocial: unemployed, receives about $ 800 SSI a month, needs to pay rent, children help with rent. Pain : denied BP 133/86, HR 66, O2Sat 96% 2 L O2 Meds: Methadone 60 mg daily. Patient seen by Psychiatrist and Methadone 30 mg daily advised. Goals of care discussed with patient. Patient understands her COPD symptoms. She reports is willing to comply with Medical orders, especially with Neb. Meds. Her issue is inability to get her meds from pharmacy. Patient is not clear when answers questions aboiut family support. Patient also avoids discussion about her Heroin use. She reports she does not crave Heroin any more and could not remember for how long she has been using it. Patient reports taking Methadone for last 6 months. I discussed with her recommendation for Methadone to be slowly decreased to 30 mg daily as a maintenance dose. Patient was not against it only answered " I do not know". I offered more information on possible side effects of Methadone. Sarina Pay Per Click Strategist shared with me that patient's Asbestos Remover suggested admission to LTC as safe discharge planing. I discussed this option with patient. Patient had experience with one facility in the past and did not like it. Patient prefers to go home with some assistance from VNS. Code status discussed. I reviewed DNR/DNI. Patient said she was not able to make decision. Patient requested her son Viraj to be her #1 contact acid plant operator in case of emergency. Impression * Chronic cough and difficulties breathing 2nd to COPD * Lack of support at home, patient unable to supply her meds from outside and runs out of her Neb. Meds * AMS most likely due to Heroin use * Patient has no decision making capacity * Poor appetite due to worsening SOB while eating * Weakness, inability to attend to basic ADLs at home * Tapering of Methadone suggested to 30 mg a day * Patient does not agree with facility placement, prefers discharge home with VNS help * Undecided on Code status, unable to make decision * Son Viraj contact #1 Suggestion * Bi Pap at night and during the day as needed * Consider O2 at discharge home * Promote safety * Assist with feedings if needed, maintain O2 via NC during the meal * Would decrease Methadone by 10 mg Q week until daily dose reaches 30 mg of Methadone. * Consider discharge home with VNS. Patient would benefit for Home health aide at home * Full Code * Call rhina Cali in case of emergency, phone # on chart. * Patient is stable for discharge from my point of view Palliative care will fallow along as needed. Advance care planing 60 min.
[2018-12-02] MEDS: Dextrose 5%/0.9% NS 1,000 ML IV SCH (16:02)
--- NOTE | 2018-12-02 17:42 | CP.PCM.PN ---
Subjective - Date & Time of Evaluation Date of Evaluation: 12/02/18 - Subjective Subjective: Patient seen and examined today no nausea no vomiting no fever no dizziness no diarrhea denies shortness of breath Objective - Vital Signs/Intake and Output Vital Signs (last 24 hours): Temp Pulse Resp BP Pulse Ox 98.0 F 98 H 20 109/59 L 94 L 12/02/18 15:00 12/02/18 15:00 12/02/18 15:00 12/02/18 15:00 12/02/18 15:00 Intake and Output: 12/02/18 12/02/18 06:59 18:59 Intake Total 440 Balance 440 - Medications Medications: Current Medications Acetaminophen (Tylenol 325mg Tab) 650 mg PO Q6 PRN PRN Reason: Pain, moderate (4-7) Last Admin: 11/29/18 06:38 Dose: 650 mg Albuterol (Ventolin Hfa 90 Mcg/Actuation (8 G)) 1 puff IH RQ6 PRN PRN Reason: Shortness of Breath Albuterol/Ipratropium (Duoneb 3 Mg/0.5 Mg (3 Ml) Ud) 3 ml INH RQ4 [facility] Last Admin: 12/02/18 17:08 Dose: Not Given Artificial Tears (Artificial Tears) 2 ml OD Q8H PRN PRN Reason: Dry eyes Docusate Sodium (Colace) 100 mg PO DAILY [facility] Last Admin: 12/02/18 09:47 Dose: 100 mg Enoxaparin Sodium (Lovenox) 40 mg SC DAILY [facility] Last Admin: 12/02/18 09:47 Dose: 40 mg Escitalopram Oxalate (Lexapro) 10 mg PO DAILY [facility] Last Admin: 12/02/18 09:47 Dose: 10 mg Fluticasone/Vilanterol (Breo Ellipta 100-25 Mcg Inh) 1 puff INH RQ24 [facility] Gabapentin (Neurontin) 300 mg PO BID [facility] Last Admin: 11/27/18 11:00 Dose: Not Given Hydroxyzine HCl (Atarax) 25 mg PO BID PRN PRN Reason: Anxiety Moxifloxacin HCl (Avelox Iv 400mg/250ml Ns) 400 mg in 250 mls @ 167 mls/hr IVPB Q24H [facility]; Protocol Last Admin: 12/01/18 19:01 Dose: 167 mls/hr Dextrose/Sodium Chloride (Dextrose 5%/0.9% Ns 1000 Ml) 1,000 mls @ 40 mls/hr IV .Q24H [facility] Last Admin: 12/02/18 16:02 Dose: 40 mls/hr Insulin Human Regular (Novolin R) 0 unit SC ACHS [facility]; Protocol Last Admin: 12/02/18 16:02 Dose: 4 unit Metformin HCl (Glucophage) 500 mg PO BID [facility] Last Admin: 12/02/18 09:47 Dose: Not Given Methadone HCl (Methadone) 20 mg PO DAILY [facility] Last Admin: 11/27/18 11:00 Dose: Not Given Methadone HCl (Methadose) 40 mg PO DAILY [facility] Last Admin: 11/27/18 11:00 Dose: Not Given Methylprednisolone (Solu-Medrol) 40 mg IVP Q8 [facility] Last Admin: 12/02/18 13:44 Dose: 40 mg Montelukast Sodium (Singulair) 10 mg PO [facility] Last Admin: 12/01/18 21:28 Dose: 10 mg Trazodone HCl (Desyrel) 100 mg PO [facility] Last Admin: 11/26/18 21:19 Dose: Not Given - Labs Labs: 11/30/18 11:32 11/30/18 11:32 - Constitutional Appears: Well - Head Exam Head Exam: ATRAUMATIC, NORMAL INSPECTION, NORMOCEPHALIC - Eye Exam Eye Exam: EOMI, Normal appearance, PERRL Pupil Exam: NORMAL ACCOMODATION, PERRL - ENT Exam ENT Exam: Mucous Membranes Moist, Normal Exam - Neck Exam Neck Exam: Full ROM, Normal Inspection. absent: Lymphadenopathy - Respiratory Exam Respiratory Exam: Decreased Breath Sounds - Cardiovascular Exam Cardiovascular Exam: REGULAR RHYTHM, +S1, +S2 - GI/Abdominal Exam GI & Abdominal Exam: Soft, Diminished Bowel Sounds - Rectal Exam Rectal Exam: Deferred - Neurological Exam Neurological Exam: Oriented x3 Assessment and Plan - Assessment and Plan (Free Text) Plan: Artificial tears Rx Avelox Breo Ellipta [facility] Desyrel Dextrose DuoNeb Glucophage Lexapro Lovenox Methadone Neurontin Novolin R Singulair Solu-Medrol Tylenol Ventolin Medications reviewed Labs reviewed Vitals reviewed
[2018-12-02] MEDS: Moxifloxacin IV 400mg/250ml NS 400 MG/250 ML BAG IVPB SCH (19:36)
--- NOTE | 2018-12-02 20:34 | CP.PCM.PN ---
Subjective - Date & Time of Evaluation Date of Evaluation: 12/02/18 Time of Evaluation: 18:00 - Subjective Subjective: Patient seen at bedside. Patient resting comfortably. Patient remains afebrile saturating at 96 on NC. States she slept well and has no new complaints or questions. ROS: Patient denies shortness of breath, cough, fever, chils. Rest of systems reviewed and negative PE HEENT: Atraumatic, normocephalic, moist mucous membranes, normal neck inspection Respiratory: decreased breath sounds bilaterally Cardiovascular: regular rate and rhythm GI/abdominal: normoactive bowel sounds Extremities: no pedal edema Neurologic: alert Assessment/Plan 1. COPD exacerbation Continue nebulizer treatment and corticosteriods. Continue use of BiPAP as needed. Objective - Vital Signs/Intake and Output Vital Signs (last 24 hours): Temp Pulse Resp BP Pulse Ox 98.0 F 98 H 20 109/59 L 94 L 12/02/18 15:00 12/02/18 15:00 12/02/18 15:00 12/02/18 15:00 12/02/18 15:00 - Medications Medications: Current Medications Acetaminophen (Tylenol 325mg Tab) 650 mg PO Q6 PRN PRN Reason: Pain, moderate (4-7) Last Admin: 12/02/18 19:10 Dose: 650 mg Albuterol (Ventolin Hfa 90 Mcg/Actuation (8 G)) 1 puff IH RQ6 PRN PRN Reason: Shortness of Breath Albuterol/Ipratropium (Duoneb 3 Mg/0.5 Mg (3 Ml) Ud) 3 ml INH RQ4 [facility] Last Admin: 12/02/18 20:13 Dose: 3 ml Artificial Tears (Artificial Tears) 2 ml OD Q8H PRN PRN Reason: Dry eyes Docusate Sodium (Colace) 100 mg PO DAILY [facility] Last Admin: 12/02/18 09:47 Dose: 100 mg Enoxaparin Sodium (Lovenox) 40 mg SC DAILY [facility] Last Admin: 12/02/18 09:47 Dose: 40 mg Escitalopram Oxalate (Lexapro) 10 mg PO DAILY [facility] Last Admin: 12/02/18 09:47 Dose: 10 mg Fluticasone/Vilanterol (Breo Ellipta 100-25 Mcg Inh) 1 puff INH RQ24 [facility] Gabapentin (Neurontin) 300 mg PO BID [facility] Last Admin: 03/31/19 11:00 Dose: Not Given Hydroxyzine HCl (Atarax) 25 mg PO BID PRN PRN Reason: Anxiety Moxifloxacin HCl (Avelox Iv 400mg/250ml Ns) 400 mg in 250 mls @ 167 mls/hr IVPB Q24H [facility]; Protocol Last Admin: 12/02/18 19:36 Dose: 167 mls/hr Dextrose/Sodium Chloride (Dextrose 5%/0.9% Ns 1000 Ml) 1,000 mls @ 40 mls/hr IV .Q24H [facility] Last Admin: 12/02/18 16:02 Dose: 40 mls/hr Insulin Human Regular (Novolin R) 0 unit SC ACHS [facility]; Protocol Last Admin: 12/02/18 16:02 Dose: 4 unit Metformin HCl (Glucophage) 500 mg PO BID [facility] Last Admin: 12/02/18 17:49 Dose: Not Given Methadone HCl (Methadone) 20 mg PO DAILY [facility] Last Admin: 11/27/18 11:00 Dose: Not Given Methadone HCl (Methadose) 40 mg PO DAILY [facility] Last Admin: 11/27/18 11:00 Dose: Not Given Methylprednisolone (Solu-Medrol) 40 mg IVP Q8 [facility] Last Admin: 12/02/18 13:44 Dose: 40 mg Montelukast Sodium (Singulair) 10 mg PO HS [facility] Last Admin: 12/01/18 21:28 Dose: 10 mg Trazodone HCl (Desyrel) 100 mg PO HS [facility] Last Admin: 11/26/18 21:19 Dose: Not Given - Labs Labs: 11/30/18 11:32 11/30/18 11:32
[2018-12-03] MEDS: Albuterol-Ipratrop 3 mg / 0.5 (3 ml) UD INH SCH ×7 (01:16→20:16)
[2018-12-03] MEDS: MethylPREDNISolone 40 mg Vial IVP SCH ×3 (05:27→21:28)
[2018-12-03] MEDS: Dextrose 5%/0.9% NS 1,000 ML IV SCH ×2 (05:29→16:10)
[2018-12-03] MEDS: (Novolin R) Insulin Human Regular 100 units/ml vial SC SCH ×4 (08:46→21:34)
[2018-12-03] MEDS: Enoxaparin 40 mg Syringe SC SCH (10:42)
--- NOTE | 2018-12-03 12:51 | CP.PCM.PN ---
Subjective - Date & Time of Evaluation Date of Evaluation: 12/03/18 - Subjective Subjective: patient seen and examined today no nausea no vomiting no fever no diarrhea no sob Objective - Vital Signs/Intake and Output Vital Signs (last 24 hours): Temp Pulse Resp BP Pulse Ox 98 F 62 20 136/71 97 12/03/18 08:00 12/03/18 08:09 12/03/18 08:00 12/03/18 08:00 12/03/18 08:00 - Medications Medications: Current Medications Acetaminophen (Tylenol 325mg Tab) 650 mg PO Q6 PRN PRN Reason: Pain, moderate (4-7) Last Admin: 12/02/18 19:10 Dose: 650 mg Albuterol (Ventolin Hfa 90 Mcg/Actuation (8 G)) 1 puff IH RQ6 PRN PRN Reason: Shortness of Breath Albuterol/Ipratropium (Duoneb 3 Mg/0.5 Mg (3 Ml) Ud) 3 ml INH RQ4 [facility] Last Admin: 12/03/18 11:45 Dose: 3 ml Artificial Tears (Artificial Tears) 2 ml OD Q8H PRN PRN Reason: Dry eyes Docusate Sodium (Colace) 100 mg PO DAILY [facility] Last Admin: 12/03/18 10:42 Dose: 100 mg Enoxaparin Sodium (Lovenox) 40 mg SC DAILY [facility] Last Admin: 12/03/18 10:42 Dose: 40 mg Escitalopram Oxalate (Lexapro) 10 mg PO DAILY [facility] Last Admin: 12/03/18 10:42 Dose: 10 mg Fluticasone/Vilanterol (Breo Ellipta 100-25 Mcg Inh) 1 puff INH RQ24 [facility] Gabapentin (Neurontin) 300 mg PO BID [facility] Last Admin: 11/27/18 11:00 Dose: Not Given Hydroxyzine HCl (Atarax) 25 mg PO BID PRN PRN Reason: Anxiety Dextrose/Sodium Chloride (Dextrose 5%/0.9% Ns 1000 Ml) 1,000 mls @ 40 mls/hr IV .Q24H [facility] Last Admin: 12/03/18 05:29 Dose: 40 mls/hr Insulin Human Regular (Novolin R) 0 unit SC ACHS [facility]; Protocol Last Admin: 12/03/18 08:46 Dose: 3 unit Metformin HCl (Glucophage) 500 mg PO BID [facility] Last Admin: 12/03/18 10:42 Dose: Not Given Methadone HCl (Methadone) 20 mg PO DAILY [facility] Last Admin: 11/27/18 11:00 Dose: Not Given Methadone HCl (Methadose) 40 mg PO DAILY [facility] Last Admin: 11/27/18 11:00 Dose: Not Given Methadone HCl (Methadone) 20 mg PO DAILY [facility] Last Admin: 12/03/18 10:41 Dose: 20 mg Methylprednisolone (Solu-Medrol) 40 mg IVP Q8 [facility] Last Admin: 12/03/18 05:27 Dose: 40 mg Montelukast Sodium (Singulair) 10 mg PO [facility] Last Admin: 12/02/18 22:24 Dose: 10 mg Trazodone HCl (Desyrel) 100 mg PO [facility] Last Admin: 11/26/18 21:19 Dose: Not Given - Labs Labs: 11/30/18 11:32 11/30/18 11:32 - Constitutional Appears: Well - Head Exam Head Exam: ATRAUMATIC, NORMAL INSPECTION, NORMOCEPHALIC - Eye Exam Eye Exam: EOMI, Normal appearance, PERRL Pupil Exam: NORMAL ACCOMODATION, PERRL - ENT Exam ENT Exam: Mucous Membranes Moist, Normal Exam - Neck Exam Neck Exam: Full ROM, Normal Inspection. absent: Lymphadenopathy - Respiratory Exam Respiratory Exam: Decreased Breath Sounds - Cardiovascular Exam Cardiovascular Exam: REGULAR RHYTHM, +S1, +S2 - GI/Abdominal Exam GI & Abdominal Exam: Soft, Diminished Bowel Sounds - Rectal Exam Rectal Exam: Deferred - Neurological Exam Neurological Exam: Oriented x3 Assessment and Plan (1) COPD exacerbation Status: Acute (2) Exacerbation of allergic asthma Status: Acute (3) Hypercarbia Status: Acute (4) Abnormal chest xray Status: Acute (5) Chest pain Status: Acute (6) Diabetes Status: Acute (7) HTN (hypertension) Status: Acute (8) Hypercapnic respiratory failure Status: Acute (9) Methadone dependence Status: Acute (10) Pneumonia Status: Acute (11) Sepsis Status: Acute (12) Tobacco abuse Status: Acute - Assessment and Plan (Free Text) Plan: Artificial tears Atarax Breo Ellipta Colace Desyrel Dextrose 5% DuoNeb Glucophage Lexapro Lovenox Methadone Neurontin Novolin R Singulair Solu-Medrol Tylenol Ventolin HFA 90 mcg/actuation Medications, labs, vitals reviewed
[2018-12-04] MEDS: MethylPREDNISolone 40 mg Vial IVP SCH ×3 (06:13→21:31)
[2018-12-04] MEDS: (Novolin R) Insulin Human Regular 100 units/ml vial SC SCH ×4 (07:56→21:31)
[2018-12-04] MEDS: Enoxaparin 40 mg Syringe SC SCH (09:33)
--- NOTE | 2018-12-04 10:05 | CP.PCM.PN ---
Subjective - Date & Time of Evaluation Date of Evaluation: 12/04/18 - Subjective Subjective: Patient seen and examined today No nausea No vomiting No fever No diarrhea No dizziness No shortness of breath Objective - Vital Signs/Intake and Output Vital Signs (last 24 hours): Temp Pulse Resp BP Pulse Ox 98.1 F 56 L 20 124/72 94 L 12/04/18 07:00 12/04/18 07:00 12/04/18 07:00 12/04/18 07:00 12/04/18 07:00 - Medications Medications: Current Medications Acetaminophen (Tylenol 325mg Tab) 650 mg PO Q6 PRN PRN Reason: Pain, moderate (4-7) Last Admin: 12/02/18 19:10 Dose: 650 mg Albuterol (Ventolin Hfa 90 Mcg/Actuation (8 G)) 1 puff IH RQ6 PRN PRN Reason: Shortness of Breath Albuterol/Ipratropium (Duoneb 3 Mg/0.5 Mg (3 Ml) Ud) 3 ml INH RQ4 [facility] Last Admin: 12/03/18 20:16 Dose: 3 ml Artificial Tears (Artificial Tears) 2 ml OD Q8H PRN PRN Reason: Dry eyes Docusate Sodium (Colace) 100 mg PO DAILY [facility] Last Admin: 12/04/18 09:32 Dose: 100 mg Enoxaparin Sodium (Lovenox) 40 mg SC DAILY [facility] Last Admin: 12/04/18 09:33 Dose: 40 mg Escitalopram Oxalate (Lexapro) 10 mg PO DAILY [facility] Last Admin: 12/04/18 09:33 Dose: 10 mg Fluticasone/Vilanterol (Breo Ellipta 100-25 Mcg Inh) 1 puff INH RQ24 [facility] Gabapentin (Neurontin) 300 mg PO BID [facility] Last Admin: 11/27/18 11:00 Dose: Not Given Hydroxyzine HCl (Atarax) 25 mg PO BID PRN PRN Reason: Anxiety Insulin Human Regular (Novolin R) 0 unit SC [facility]; Protocol Last Admin: 12/04/18 07:56 Dose: 2 unit Metformin HCl (Glucophage) 500 mg PO BID [facility] Last Admin: 12/04/18 09:32 Dose: Not Given Methadone HCl (Methadone) 20 mg PO DAILY [facility] Last Admin: 11/27/18 11:00 Dose: Not Given Methadone HCl (Methadose) 40 mg PO DAILY [facility] Last Admin: 11/27/18 11:00 Dose: Not Given Methadone HCl (Methadone) 20 mg PO DAILY [facility] Last Admin: 12/04/18 09:33 Dose: 20 mg Methylprednisolone (Solu-Medrol) 40 mg IVP Q8 [facility] Last Admin: 12/04/18 06:13 Dose: 40 mg Montelukast Sodium (Singulair) 10 mg PO [facility] Last Admin: 12/03/18 21:28 Dose: 10 mg Trazodone HCl (Desyrel) 100 mg PO [facility] Last Admin: 11/26/18 21:19 Dose: Not Given - Labs Labs: 11/30/18 11:32 11/30/18 11:32 - Constitutional Appears: Well - Head Exam Head Exam: ATRAUMATIC, NORMAL INSPECTION, NORMOCEPHALIC - Eye Exam Eye Exam: EOMI, Normal appearance, PERRL Pupil Exam: NORMAL ACCOMODATION, PERRL - ENT Exam ENT Exam: Mucous Membranes Moist, Normal Exam - Neck Exam Neck Exam: Full ROM, Normal Inspection. absent: Lymphadenopathy - Respiratory Exam Respiratory Exam: Decreased Breath Sounds - Cardiovascular Exam Cardiovascular Exam: REGULAR RHYTHM, +S1, +S2 - GI/Abdominal Exam GI & Abdominal Exam: Soft, Diminished Bowel Sounds - Rectal Exam Rectal Exam: Deferred - Neurological Exam Neurological Exam: Oriented x3 Assessment and Plan (1) COPD exacerbation Status: Acute (2) Exacerbation of allergic asthma Status: Acute (3) Hypercarbia Status: Acute (4) Abnormal chest xray Status: Acute (5) Chest pain Status: Acute (6) Diabetes Status: Acute (7) HTN (hypertension) Status: Acute (8) Hypercapnic respiratory failure Status: Acute (9) Methadone dependence Status: Acute (10) Pneumonia Status: Acute (11) Sepsis Status: Acute (12) Tobacco abuse Status: Acute - Assessment and Plan (Free Text) Plan: artificial tears atarax breo ellipta colace desyrel duoneb glucophage lexapro methadone neurontin novlin R singulair solu-medrol tylenol 325mg ventolin hfa medications reviewed labs reviewed vitals reviewed
[2018-12-04] MEDS: Albuterol-Ipratrop 3 mg / 0.5 (3 ml) UD INH SCH ×3 (10:45→20:17)
--- NOTE | 2018-12-04 13:31 | CP.PCM.PN ---
Subjective - Date & Time of Evaluation Date of Evaluation: 12/04/18 Time of Evaluation: 13:31 - Subjective Subjective: Pulmonary follow up, Covering Dr Ceja The Patient was seen and examined at the bedside, Medical records reviewed, and management issues were discussed and formulated with the house staff. Events reviewed Objective - Vital Signs/Intake and Output Vital Signs (last 24 hours): Temp Pulse Resp BP Pulse Ox 98.1 F 56 L 20 124/72 94 L 12/04/18 07:00 12/04/18 07:00 12/04/18 07:00 12/04/18 07:00 12/04/18 07:00 - Medications Medications: Current Medications Acetaminophen (Tylenol 325mg Tab) 650 mg PO Q6 PRN PRN Reason: Pain, moderate (4-7) Last Admin: 12/02/18 19:10 Dose: 650 mg Albuterol (Ventolin Hfa 90 Mcg/Actuation (8 G)) 1 puff IH RQ6 PRN PRN Reason: Shortness of Breath Albuterol/Ipratropium (Duoneb 3 Mg/0.5 Mg (3 Ml) Ud) 3 ml INH RQ4 [facility] Last Admin: 12/04/18 11:00 Dose: 3 ml Artificial Tears (Artificial Tears) 2 ml OD Q8H PRN PRN Reason: Dry eyes Docusate Sodium (Colace) 100 mg PO DAILY [facility] Last Admin: 12/04/18 09:32 Dose: 100 mg Enoxaparin Sodium (Lovenox) 40 mg SC DAILY [facility] Last Admin: 12/04/18 09:33 Dose: 40 mg Escitalopram Oxalate (Lexapro) 10 mg PO DAILY [facility] Last Admin: 12/04/18 09:33 Dose: 10 mg Fluticasone/Vilanterol (Breo Ellipta 100-25 Mcg Inh) 1 puff INH RQ24 [facility] Gabapentin (Neurontin) 300 mg PO BID [facility] Last Admin: 11/27/18 11:00 Dose: Not Given Hydroxyzine HCl (Atarax) 25 mg PO BID PRN PRN Reason: Anxiety Insulin Human Regular (Novolin R) 0 unit SC [facility]; Protocol Last Admin: 12/04/18 11:48 Dose: 3 unit Metformin HCl (Glucophage) 500 mg PO BID [facility] Last Admin: 12/04/18 09:32 Dose: Not Given Methadone HCl (Methadone) 20 mg PO DAILY [facility] Last Admin: 11/27/18 11:00 Dose: Not Given Methadone HCl (Methadose) 40 mg PO DAILY [facility] Last Admin: 11/27/18 11:00 Dose: Not Given Methadone HCl (Methadone) 20 mg PO DAILY [facility] Last Admin: 12/04/18 09:33 Dose: 20 mg Methylprednisolone (Solu-Medrol) 40 mg IVP Q8 [facility] Last Admin: 12/04/18 06:13 Dose: 40 mg Montelukast Sodium (Singulair) 10 mg PO HS [facility] Last Admin: 12/03/18 21:28 Dose: 10 mg Trazodone HCl (Desyrel) 100 mg PO HS [facility] Last Admin: 11/26/18 21:19 Dose: Not Given - Labs Labs: 11/30/18 11:32 11/30/18 11:32
[2018-12-05] MEDS: MethylPREDNISolone 40 mg Vial IVP SCH ×2 (05:39→13:12)
[2018-12-05] MEDS: Albuterol-Ipratrop 3 mg / 0.5 (3 ml) UD INH SCH ×3 (07:43→16:02)
[2018-12-05] MEDS: (Novolin R) Insulin Human Regular 100 units/ml vial SC SCH ×3 (08:53→16:43)
--- NOTE | 2018-12-05 12:09 | CP.PCM.PN ---
Subjective - Date & Time of Evaluation Date of Evaluation: 12/05/18 Time of Evaluation: 12:06 - Subjective Subjective: Pulm Progress Note for Dr. Ceja's service S/E at bedside. Reports improvement in sob. Has not walked currently. Complained of headache and nausea likely 2/2 to decreased methadone dose. Objective - Vital Signs/Intake and Output Vital Signs (last 24 hours): Temp Pulse Resp BP Pulse Ox 98.0 F 64 20 128/79 99 12/05/18 07:00 12/05/18 07:00 12/05/18 07:00 12/05/18 07:00 12/05/18 07:00 - Medications Medications: Current Medications Acetaminophen (Tylenol 325mg Tab) 650 mg PO Q6 PRN PRN Reason: Pain, moderate (4-7) Last Admin: 12/05/18 02:17 Dose: 650 mg Albuterol (Ventolin Hfa 90 Mcg/Actuation (8 G)) 1 puff IH RQ6 PRN PRN Reason: Shortness of Breath Albuterol/Ipratropium (Duoneb 3 Mg/0.5 Mg (3 Ml) Ud) 3 ml INH RQ4 [facility] Last Admin: 12/05/18 11:57 Dose: 3 ml Artificial Tears (Artificial Tears) 2 ml OD Q8H PRN PRN Reason: Dry eyes Docusate Sodium (Colace) 100 mg PO DAILY [facility] Last Admin: 12/05/18 09:12 Dose: 100 mg Escitalopram Oxalate (Lexapro) 10 mg PO DAILY [facility] Last Admin: 12/05/18 09:12 Dose: 10 mg Fluticasone/Vilanterol (Breo Ellipta 100-25 Mcg Inh) 1 puff INH RQ24 [facility] Gabapentin (Neurontin) 300 mg PO BID [facility] Last Admin: 11/27/18 11:00 Dose: Not Given Hydroxyzine HCl (Atarax) 25 mg PO BID PRN PRN Reason: Anxiety Insulin Human Regular (Novolin R) 0 unit SC [facility]; Protocol Last Admin: 12/05/18 11:54 Dose: 6 unit Metformin HCl (Glucophage) 500 mg PO BID [facility] Last Admin: 12/05/18 09:12 Dose: Not Given Methadone HCl (Methadone) 20 mg PO DAILY [facility] Last Admin: 11/27/18 11:00 Dose: Not Given Methadone HCl (Methadose) 40 mg PO DAILY [facility] Last Admin: 11/27/18 11:00 Dose: Not Given Methadone HCl (Methadone) 20 mg PO DAILY [facility] Last Admin: 12/05/18 09:12 Dose: 20 mg Methylprednisolone (Solu-Medrol) 40 mg IVP Q8 [facility] Last Admin: 12/05/18 05:39 Dose: 40 mg Montelukast Sodium (Singulair) 10 mg PO [facility] Last Admin: 12/04/18 21:30 Dose: 10 mg Trazodone HCl (Desyrel) 100 mg PO [facility] Last Admin: 11/26/18 21:19 Dose: Not Given - Labs Labs: 11/30/18 11:32 11/30/18 11:32 - Constitutional Appears: Non-toxic, No Acute Distress - Head Exam Head Exam: NORMAL INSPECTION, NORMOCEPHALIC - Eye Exam Eye Exam: EOMI, Normal appearance. absent: Nystagmus, Scleral icterus - ENT Exam ENT Exam: Mucous Membranes Dry - Respiratory Exam Respiratory Exam: Wheezes, NORMAL BREATHING PATTERN. absent: Clear to Ausculation Bilateral, Rales, Respiratory Distress - Cardiovascular Exam Cardiovascular Exam: REGULAR RHYTHM, +S1, +S2 - GI/Abdominal Exam GI & Abdominal Exam: Soft, Normal Bowel Sounds - Extremities Exam Extremities Exam: Normal Inspection. absent: Pedal Edema - Neurological Exam Neurological Exam: Alert, Awake, Oriented x3 - Psychiatric Exam Psychiatric exam: Normal Affect, Normal Mood - Skin Skin Exam: Dry, Intact, Normal Color Assessment and Plan - Assessment and Plan (Free Text) Assessment: 58 yo female w/ PMH of COPD, HTN, DM admittd for shortness of breath, nonproductive cough, and chest pain. Plan: A: Acute exacerbation of COPD P: Continue Duonebs, BreoEllipta, IV steroids Continue Singulair Decrease dose of steroids as patient wheezing decreases; Recommend better sugar control in setting of IV steroids Further medical management as per primary team
--- NOTE | 2018-12-05 13:36 | CP.PCM.PN ---
Subjective - Date & Time of Evaluation Date of Evaluation: 12/05/18 - Subjective Subjective: patient was examined today no fever no diarrhea no vomiting denies shortness of breath no nausea Objective - Vital Signs/Intake and Output Vital Signs (last 24 hours): Temp Pulse Resp BP Pulse Ox 98.0 F 64 20 128/79 99 12/05/18 07:00 12/05/18 07:00 12/05/18 07:00 12/05/18 07:00 12/05/18 07:00 - Medications Medications: Current Medications Acetaminophen (Tylenol 325mg Tab) 650 mg PO Q6 PRN PRN Reason: Pain, moderate (4-7) Last Admin: 12/05/18 02:17 Dose: 650 mg Albuterol (Ventolin Hfa 90 Mcg/Actuation (8 G)) 1 puff IH RQ6 PRN PRN Reason: Shortness of Breath Albuterol/Ipratropium (Duoneb 3 Mg/0.5 Mg (3 Ml) Ud) 3 ml INH RQ4 [facility] Last Admin: 12/05/18 11:57 Dose: 3 ml Artificial Tears (Artificial Tears) 2 ml OD Q8H PRN PRN Reason: Dry eyes Docusate Sodium (Colace) 100 mg PO DAILY [facility] Last Admin: 12/05/18 09:12 Dose: 100 mg Escitalopram Oxalate (Lexapro) 10 mg PO DAILY [facility] Last Admin: 12/05/18 09:12 Dose: 10 mg Fluticasone/Vilanterol (Breo Ellipta 100-25 Mcg Inh) 1 puff INH RQ24 [facility] Gabapentin (Neurontin) 300 mg PO BID [facility] Last Admin: 11/27/18 11:00 Dose: Not Given Hydroxyzine HCl (Atarax) 25 mg PO BID PRN PRN Reason: Anxiety Insulin Human Regular (Novolin R) 0 unit SC [facility]; Protocol Last Admin: 12/05/18 11:54 Dose: 6 unit Metformin HCl (Glucophage) 500 mg PO BID [facility] Last Admin: 12/05/18 09:12 Dose: Not Given Methadone HCl (Methadone) 20 mg PO DAILY [facility] Last Admin: 11/27/18 11:00 Dose: Not Given Methadone HCl (Methadose) 40 mg PO DAILY [facility] Last Admin: 11/27/18 11:00 Dose: Not Given Methadone HCl (Methadone) 20 mg PO DAILY [facility] Last Admin: 12/05/18 09:12 Dose: 20 mg Methylprednisolone (Solu-Medrol) 40 mg IVP Q8 [facility] Last Admin: 12/05/18 13:12 Dose: 40 mg Montelukast Sodium (Singulair) 10 mg PO HS [facility] Last Admin: 12/04/18 21:30 Dose: 10 mg Trazodone HCl (Desyrel) 100 mg PO [facility] Last Admin: 11/26/18 21:19 Dose: Not Given - Labs Labs: 11/30/18 11:32 11/30/18 11:32 - Constitutional Appears: Well - Head Exam Head Exam: ATRAUMATIC, NORMAL INSPECTION, NORMOCEPHALIC - Eye Exam Eye Exam: EOMI, Normal appearance, PERRL Pupil Exam: NORMAL ACCOMODATION, PERRL - ENT Exam ENT Exam: Mucous Membranes Moist, Normal Exam - Neck Exam Neck Exam: Full ROM, Normal Inspection. absent: Lymphadenopathy - Respiratory Exam Respiratory Exam: Decreased Breath Sounds - Cardiovascular Exam Cardiovascular Exam: REGULAR RHYTHM, +S1, +S2 - GI/Abdominal Exam GI & Abdominal Exam: Soft, Diminished Bowel Sounds - Rectal Exam Rectal Exam: Deferred - Neurological Exam Neurological Exam: Oriented x3 Assessment and Plan (1) COPD exacerbation Status: Acute (2) Exacerbation of allergic asthma Status: Acute (3) Hypercarbia Status: Acute (4) Abnormal chest xray Status: Acute (5) Chest pain Status: Acute (6) Diabetes Status: Acute (7) HTN (hypertension) Status: Acute (8) Hypercapnic respiratory failure Status: Acute (9) Methadone dependence Status: Acute (10) Pneumonia Status: Acute (11) Sepsis Status: Acute (12) Tobacco abuse Status: Acute - Assessment and Plan (Free Text) Plan: medications reviewed labs reviewed vitals reviewed
--- NOTE | 2018-12-05 15:31 | CP.PCM.PN ---
Subjective - Date & Time of Evaluation Date of Evaluation: 12/05/18 Time of Evaluation: 15:31 - Subjective Subjective: PATIENT SEEN AND EXAMINED AT THE BEDSIDE Objective - Vital Signs/Intake and Output Vital Signs (last 24 hours): Temp Pulse Resp BP Pulse Ox 98.0 F 64 20 128/79 99 12/05/18 07:00 12/05/18 12:00 12/05/18 07:00 12/05/18 07:00 12/05/18 07:00 - Medications Medications: Current Medications Acetaminophen (Tylenol 325mg Tab) 650 mg PO Q6 PRN PRN Reason: Pain, moderate (4-7) Last Admin: 12/05/18 02:17 Dose: 650 mg Albuterol (Ventolin Hfa 90 Mcg/Actuation (8 G)) 1 puff IH RQ6 PRN PRN Reason: Shortness of Breath Albuterol/Ipratropium (Duoneb 3 Mg/0.5 Mg (3 Ml) Ud) 3 ml INH RQ4 [facility] Last Admin: 12/05/18 11:57 Dose: 3 ml Artificial Tears (Artificial Tears) 2 ml OD Q8H PRN PRN Reason: Dry eyes Docusate Sodium (Colace) 100 mg PO DAILY [facility] Last Admin: 12/05/18 09:12 Dose: 100 mg Escitalopram Oxalate (Lexapro) 10 mg PO DAILY [facility] Last Admin: 12/05/18 09:12 Dose: 10 mg Fluticasone/Vilanterol (Breo Ellipta 100-25 Mcg Inh) 1 puff INH RQ24 [facility] Gabapentin (Neurontin) 300 mg PO BID [facility] Last Admin: 11/27/18 11:00 Dose: Not Given Hydroxyzine HCl (Atarax) 25 mg PO BID PRN PRN Reason: Anxiety Insulin Human Regular (Novolin R) 0 unit SC [facility]; Protocol Last Admin: 12/05/18 11:54 Dose: 6 unit Metformin HCl (Glucophage) 500 mg PO BID [facility] Last Admin: 12/05/18 09:12 Dose: Not Given Methadone HCl (Methadone) 20 mg PO DAILY [facility] Last Admin: 11/27/18 11:00 Dose: Not Given Methadone HCl (Methadose) 40 mg PO DAILY [facility] Last Admin: 11/27/18 11:00 Dose: Not Given Methadone HCl (Methadone) 20 mg PO DAILY [facility] Last Admin: 12/05/18 09:12 Dose: 20 mg Methylprednisolone (Solu-Medrol) 40 mg IVP Q8 [facility] Last Admin: 12/05/18 13:12 Dose: 40 mg Montelukast Sodium (Singulair) 10 mg PO HS [facility] Last Admin: 12/04/18 21:30 Dose: 10 mg Trazodone HCl (Desyrel) 100 mg PO HS [facility] Last Admin: 11/26/18 21:19 Dose: Not Given - Labs Labs: 11/30/18 11:32 11/30/18 11:32 Assessment and Plan - Assessment and Plan (Free Text) Assessment: FOLLOW UP WITH DR Kavya HARRINGTON IN HIS OFFICE ----CALL FOR APPOINTMENT FOLLOW UP WITH DR KWONG IN HIS OFFICE -----CALL FOR APPOINTMENT CONTINUE HOME MEDICATION NEW PRESCRIPTION GIVEN MEDROL DOSE PACK ACTIVITY TOLERATED CALL DR Kavya HARRINGTON OR GO TO THE EMERGENCY ROOM IF SYMPTOM RETURN OR WORSENING
[2018-12-05 15:54] VITALS: BP 125/72; RESP 18; TEMP 98.4; O2SAT 97
[2018-12-05 16:19] VITALS: PULSE 79
--- NOTE | 2018-12-05 21:34 | CP.PCM.DIS ---
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 11/28/18 14:28 Psychiatry Consult Routine Comment: methadone tx Consulting Provider: Saelem Reyes Consulting Physician: Saleem Reyes Reason for Consult: methadone tx 11/30/18 15:24 Palliative Care Consult Routine Comment: Consulting Provider: Lynda Huynh Physician Instructions: Reason For Exam: hx copd, substance abuse; refusing bipap, abg Time Spent in preparation of Discharge (in minutes): 20 Diagnosis - Discharge Diagnosis (1) COPD exacerbation Status: Acute (2) Exacerbation of allergic asthma Status: Acute (3) Hypercarbia Status: Acute (4) Abnormal chest xray Status: Acute Priority: Medium (5) Chest pain Status: Acute Priority: Medium (6) Diabetes Status: Acute (7) HTN (hypertension) Status: Acute (8) Hypercapnic respiratory failure Status: Acute (9) Methadone dependence Status: Acute (10) Pneumonia Status: Acute (11) Sepsis Status: Acute (12) Tobacco abuse Status: Acute Hospital Course - Lab Results Lab Results: Micro Results 11/24/18 18:32 Blood-Venous Blood Culture - Final NO GROWTH AFTER 5 DAYS 11/24/18 18:32 Blood-Venous Gram Stain - Final TEST NOT PERFORMED 11/24/18 18:30 Blood-Venous Blood Culture - Final NO GROWTH AFTER 5 DAYS Most Recent Lab Values WBC 8.2 K/uL (4.8-10.8) 11/30/18 11:32 RBC 4.35 Mil/uL (3.80-5.20) 11/30/18 11:32 Hgb 14.5 g/dL (11.0-16.0) D 11/30/18 11:32 Hct 41.6 % (34.0-47.0) 11/30/18 11:32 MCV 95.6 fL (81.0-99.0) 11/30/18 11:32 MCH 33.3 pg (27.0-31.0) H 11/30/18 11:32 MCHC 34.8 g/dL (33.0-37.0) 11/30/18 11:32 RDW 15.9 % (11.5-14.5) H 11/30/18 11:32 Plt Count 174 K/uL (130-400) 11/30/18 11:32 MPV 7.4 fL (7.2-11.7) 11/30/18 11:32 Neut % (Auto) 71.7 % (50.0-75.0) 11/30/18 11:32 Lymph % (Auto) 18.9 % (20.0-40.0) L 11/30/18 11:32 [place] % (Auto) 8.4 % (0.0-10.0) 11/30/18 11:32 Eos % (Auto) 0.7 % (0.0-4.0) 11/30/18 11:32 Baso % (Auto) 0.3 % (0.0-2.0) 11/30/18 11:32 Neut # (Auto) 5.9 K/uL (1.8-7.0) 11/30/18 11:32 Lymph # (Auto) 1.6 K/uL (1.0-4.3) 11/30/18 11:32 [place] # (Auto) 0.7 K/uL (0.0-0.8) 11/30/18 11:32 Eos # (Auto) 0.1 K/uL (0.0-0.7) 11/30/18 11:32 Baso # (Auto) 0.0 K/uL (0.0-0.2) 11/30/18 11:32 Neutrophils % (Manual) 78 % (50-75) H 11/27/18 08:52 Band Neutrophils % 4 % (0-2) H 11/27/18 08:52 Lymphocytes % (Manual) 8 % (20-40) L 11/27/18 08:52 Reactive Lymphs % 1 % (0-0) H 11/24/18 16:44 Monocytes % (Manual) 10 % (0-10) 11/27/18 08:52 Differential Comment 11/28/18 08:25 Platelet Estimate Normal (NORMAL) 11/27/18 08:52 Anisocytosis (manual) Slight 11/27/18 08:52 D-Dimer, Quantitative 481 ng/mlDDU (0-243) H 11/27/18 10:24 Puncture Site Lra 11/27/18 10:18 pCO2 51 mm/Hg (35-45) H 11/27/18 10:18 pO2 37 mm/Hg (30-55) 11/30/18 15:20 HCO3 37.6 mmol/L (21-28) H 11/27/18 10:18 ABG pH 7.52 (7.35-7.45) H 11/27/18 10:18 ABG Total CO2 43.2 mmol/L (22-28) H 11/27/18 10:18 ABG O2 Saturation 99.4 % (95-98) H 11/27/18 10:18 ABG Base Excess 16.2 mmol/L (-2.0-3.0) H 11/27/18 10:18 Navjot Test Pos 11/27/18 10:18 ABG Potassium 3.7 mmol/L (3.6-5.2) 11/27/18 10:18 VBG pH 7.40 (7.32-7.43) 11/30/18 15:20 VBG pCO2 68 mmHg (40-60) H* 11/30/18 15:20 VBG HCO3 35.1 mmol/L 11/30/18 15:20 VBG Total CO2 44.2 mmol/L (22-28) H 11/30/18 15:20 VBG O2 Sat (Calc) 77.2 % (40-65) H 11/30/18 15:20 VBG Base Excess 14.0 mmol/L (0.0-2.0) H 11/30/18 15:20 VBG Potassium 3.7 mmol/L (3.6-5.2) 11/30/18 15:20 A-a O2 Difference 435.0 mm/Hg 11/27/18 10:18 Respiratory Index 2.0 11/27/18 10:18 Sodium 141.0 mmol/l (132-148) 11/30/18 15:20 Chloride 101.0 mmol/L (98-107) 11/30/18 15:20 Glucose 187 mg/dl (65-105) H 11/30/18 15:20 Lactate 1.0 mmol/L (0.7-2.1) 11/30/18 15:20 FiO2 60.0 % 11/30/18 15:20 Expiratory BiPAP 5 11/30/18 15:20 Crit Value Called To 11/30/18 15:20 Crit Value Called By Elpidio sanchez 11/30/18 15:20 Crit Value Read Back Y 11/30/18 15:20 Blood Gas Notified Time 1523 11/30/18 15:20 Sodium 139 mmol/L (132-148) 11/30/18 11:32 Potassium 3.8 mmol/L (3.6-5.2) 11/30/18 11:32 Chloride 96 mmol/L (98-107) L 11/30/18 11:32 Carbon Dioxide 40 mmol/L (22-30) H* 11/30/18 11:32 Anion Gap 6 (10-20) L 11/30/18 11:32 BUN 8 mg/dL (7-17) 11/30/18 11:32 Creatinine 0.4 mg/dL (0.7-1.2) L 11/30/18 11:32 Est GFR ( Amer) > 60 11/30/18 11:32 Est GFR (Non-Af Amer) > 60 11/30/18 11:32 POC Glucose (mg/dL) 415 mg/dL (65-110) H* 12/05/18 16:23 Random Glucose 200 mg/dL (65-105) H D 11/30/18 11:32 Calcium 8.9 mg/dl (8.6-10.4) 11/30/18 11:32 Total Bilirubin 1.2 mg/dL (0.2-1.3) 11/30/18 11:32 AST 41 U/L (14-36) H 11/30/18 11:32 ALT 62 U/L (9-52) H 11/30/18 11:32 Alkaline Phosphatase 73 U/L (38-126) 11/30/18 11:32 Total Creatine Kinase < 20 U/L (30-135) L 11/27/18 10:24 CK-MB (Mass) 0.88 ng/mL (0.0-3.38) 11/27/18 10:24 Troponin I < 0.0120 ng/mL (0.00-0.120) 11/27/18 10:24 NT-Pro-B Natriuret Pep 171 pg/mL (0-900) 11/27/18 10:24 Total Protein 6.1 g/dL (6.3-8.3) L 11/30/18 11:32 Albumin 3.4 g/dL (3.5-5.0) L 11/30/18 11:32 Globulin 2.7 gm/dL (2.2-3.9) 11/30/18 11:32 Albumin/Globulin Ratio 1.3 (1.0-2.1) 11/30/18 11:32 Arterial Blood Potassium 3.7 mmol/L (3.6-5.2) 11/27/18 10:18 Venous Blood Potassium 3.7 mmol/L (3.6-5.2) 11/30/18 15:20 Urine Opiates Screen Negative (NEGATIVE) 11/27/18 10:00 Urine Methadone Screen Positive (NEGATIVE) H 11/27/18 10:00 Ur Barbiturates Screen Negative (NEGATIVE) 11/27/18 10:00 Ur Phencyclidine Scrn Negative (NEGATIVE) 11/27/18 10:00 Ur Amphetamines Screen Negative (NEGATIVE) 11/27/18 10:00 U Benzodiazepines Scrn Positive (NEGATIVE) 11/27/18 10:00 U Oth Cocaine Metabols Negative (NEGATIVE) 11/27/18 10:00 U Cannabinoids Screen Negative (NEGATIVE) 11/27/18 10:00 Influenza Typ A,B (EIA) Negative for flu a/b (NEGATIVE) 11/30/18 15:54 Discharge Exam - Head Exam Head Exam: ATRAUMATIC, NORMAL INSPECTION, NORMOCEPHALIC Discharge Plan - Discharge Medications Prescriptions: Fluticasone/Salmeterol 500/50 [Advair Diskus 500/50] 1 puff INH RQ12 #1 inhaler Docusate [Colace] 1 cap PO HS 30 Days cap Albuterol/Ipratropium [Duoneb 3 mg/0.5 mg (3 ml) UD] 3 ml IH TID PRN 30 Days neb PRN Reason: Wheezing metFORMIN [glucOPHAGE] 500 mg PO BID #60 tab Escitalopram [Lexapro] 10 mg PO DAILY #30 tab Methylprednisolone [Medrol Dose Pack (21 tabs)] 4 mg PO DAILY #21 mg Melatonin 5 mg PO HS 30 Days capsule Montelukast [Singulair] 10 mg PO HS #30 tab Propylene Glycol/Peg 400/Pf [Systane 0.3-0.4% Eye Drop] 2 drop OD Q8H PRN 30 Days droperette PRN Reason: Dry Eyes Albuterol HFA [Ventolin HFA 90 mcg/actuation (8 g)] 1 puff IH Q6H PRN 30 Days #1 puff PRN Reason: Shortness Of Breath - Follow Up Plan Condition: SERIOUS Disposition: HOME/ ROUTINE Instructions: Smoking: Not Just Harmful to Your Lungs and Heart, Asthma, Adult (DC), Avoiding Asthma Triggers, Quitting Smoking, Exacerbation of COPD (DC), Methylprednisolone Additional Instructions: FOLLOW UP WITH DR Kavya RICO IN HIS OFFICE ----CALL FOR APPOINTMENT FOLLOW UP WITH DR CEJA IN HIS OFFICE -----CALL FOR APPOINTMENT CONTINUE HOME MEDICATION NEW PRESCRIPTION GIVEN MEDROL DOSE PACK ACTIVITY TOLERATED CALL DR Kavya RICO OR GO TO THE EMERGENCY ROOM IF SYMPTOM RETURN OR WORSENING Referrals: Jae Ceja MD [Staff Provider] - Saleem Reyes MD [Staff Provider] - Augustine Rico MD [Staff Provider] -
== END 2018-12-05 19:37 | disposition home or self-care (01) | DRG 541 ==
LOC: C.ER 14:37 → C.5S 17:14 → OBSVTOIN 11-26 12:08 → C.5S 11-27 08:32
PROVIDERS: ADMIT Internal Medicine Nephrology; ATTEND Internal Medicine Nephrology
PROC: 5A09557 Assistance with Respiratory Ventilation, Greater than 96 Consecutive Hours, Continuous Positive Airway Pressure (ICD-10-PCS; principal; 2018-11-26)
DX: J44.1 Chronic obstructive pulmonary disease with (acute) exacerbation (principal); A41.9 Sepsis, unspecified organism; J96.92 Respiratory failure, unspecified with hypercapnia; J18.9 Pneumonia, unspecified organism; F11.20 Opioid dependence, uncomplicated; J45.901 Unspecified asthma with (acute) exacerbation; J44.0 Chronic obstructive pulmonary disease with (acute) lower respiratory infection; I10 Essential (primary) hypertension; F41.0 Panic disorder [episodic paroxysmal anxiety]; E11.9 Type 2 diabetes mellitus without complications; G47.30 Sleep apnea, unspecified; F17.210 Nicotine dependence, cigarettes, uncomplicated